=== PATIENT | male | born 1940 | race Caucasian/White ===

== ENCOUNTER → 2020-07-01 13:05 | Outpatient (BNVA) | payer MEDICARE, SELFPAY | PROVIDERS: PCP Internal Medicine; Visit Provider Student in an Organized Health Care Education/Training Program | DX: L40.50 Arthropathic psoriasis, unspecified (principal) | CPT/HCPCS: 96372; J0717 ==

== ENCOUNTER → 2020-08-04 12:54 | Outpatient (BNVA) | payer MEDICARE, SELFPAY | PROVIDERS: PCP Internal Medicine; Referring Provider Internal Medicine; Visit Provider Student in an Organized Health Care Education/Training Program | DX: L40.50 Arthropathic psoriasis, unspecified (principal) | CPT/HCPCS: 96372; J0717 ==

== ENCOUNTER 2021-05-31 13:54 | Outpatient (REF) | payer MEDICARE, SELFPAY ==
--- NOTE | ~2021-05-31 | US_ITS ---
EXAMINATION: US EXTRACRANIAL CAROTID DUPLEX, BILATERAL CLINICAL INFORMATION: Stenosis of right carotid artery COMPARISON: None TECHNIQUE: Real-time ultrasound and Doppler techniques (integrating B-mode 2-D vascular images, Doppler spectral analysis and color-flow Doppler imaging) were utilized to interrogate the extracranial carotid arteries, the vertebral arteries and proximal subclavian arteries bilaterally. The degree of stenosis is determined by criteria similar to NASCET. FINDINGS: Right Side: 1. There is no significant atherosclerotic plaque seen in the bifurcation/proximal ICA region. 2. The common carotid artery PSV proximally is 98.2 cm/s and distally 95.6 cm/s. 3. The proximal internal carotid artery velocities are 70.4 cm/s systolic and 17.0 cm/s diastolic. 4. The proximal external carotid artery PSV is 104 cm/s. 5. The vertebral artery shows antegrade flow. 6. The subclavian artery waveforms are normal. Left Side: 1. There is no significant atherosclerotic plaque seen in the bifurcation/proximal ICA region. 2. The common carotid artery PSV proximally is 162 cm/s and distally 116 cm/s. 3. The proximal internal carotid artery velocities are 72.1 cm/s systolic and 17.6 cm/s diastolic. 4. The proximal external carotid artery PSV is 138.0 cm/s. 5. The vertebral artery shows antegrade flow. 6. The subclavian artery waveforms are normal. US/US carotid duplex BI IMPRESSION: 1. RIGHT: Normal right internal carotid artery without atherosclerotic plaque or hemodynamically significant stenosis. 2. LEFT: Normal left internal carotid artery without atherosclerotic plaque or hemodynamically significant stenosis.
== END 2021-05-31 13:55 | disposition home or self-care (01) ==
LOC: HO.US 13:54
PROVIDERS: Visit Provider Internal Medicine
DX: I65.21 Occlusion and stenosis of right carotid artery (principal)
CPT/HCPCS: 93880

== ENCOUNTER 2022-10-10 10:41 | Inpatient (IN) | payer MEDICARE, SELFPAY ==
--- NOTE | ~2022-10-10 | MR_ITS ---
EXAMINATION: MRI FOOT WITHOUT AND WITH CONTRAST, LEFT CLINICAL INFORMATION: Diabetic foot ulcer, cellulitis COMPARISON: Radiographs 10/10/2022 TECHNIQUE: MRI without and with intravenous administration of 7 mL of Gadavist is performed on the left foot. FINDINGS: Apparent soft tissue defect at the dorsal aspect and/or distal tip of the great toe with underlying edema and enhancement compatible with cellulitis. No abscess. There is marrow edema/enhancement and T1 fatty marrow replacement throughout the distal phalanx, most prominently involving the tuft, compatible with osteomyelitis. Diffuse subcutaneous edema, prominent along the dorsum of the foot, and diffuse fatty atrophy of the intrinsic muscles of the foot. 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 No abscess.
--- NOTE | ~2022-10-10 | US_ITS ---
EXAMINATION: US RENAL AND BLADDER CLINICAL INFORMATION: Hydronephrosis. COMPARISON: Nothing recent. TECHNIQUE: Routine grayscale imaging of kidneys and the bladder was performed. FINDINGS: Right Kidney: It measures 9.6 x 5.6 x 6.3 cm. There is normal cortical thickness. No echogenic stones seen. There is moderate hydronephrosis. Left Kidney: It measures 11.3 x 6.6 x 6.1 cm. There is normal cortical thickness. No echogenic stones or solid masses. There is moderate left hydronephrosis. Bladder: Prevoid bladder measures 1002. Postvoid bladder volume measures 999 mL. There is trabeculated inner bladder wall but no bladder wall thickening. No echogenic stone. There is a small diverticulum suspected. US/US bladder IMPRESSION: Bilateral hydronephrosis and dilated urinary bladder most likely obstructive enlarged prostate gland. Prostate volume is 60 mL.
--- NOTE | ~2022-10-10 | XR_ITS ---
EXAMINATION: XR FOOT, LEFT CLINICAL INFORMATION: Pain and swelling COMPARISON: Left foot x-rays 12/09/2014 TECHNIQUE: AP, lateral, and oblique views of the left foot. FINDINGS: Bones of the midfoot are well aligned. No tarsal, metatarsal or phalangeal fracture. Mild diffuse degenerative changes of scattered IP joints. No focal soft tissue swelling of the foot. No radiopaque foreign body. Small plantar calcaneal enthesophytes. Vascular calcifications are noted. There are postsurgical changes of the ankle which are incompletely characterized. Symmetrically shaped approximately 1.2 x 0.6 cm soft tissue density abutting the first distal phalanx is nonspecific but may represent an object external to the patient as it is not visualized in other views. XR/XR foot LT 2V IMPRESSION: -Mild degenerative changes of the left foot without fracture. -Symmetrically shaped approximately 1.2 x 0.6 cm soft tissue density abutting the first distal phalanx is nonspecific but may represent an object external to the patient as it is not visualized in other views. Dedicated radiographs of the first toe can be obtained if clinically indicated.
--- NOTE | ~2022-10-10 | US_ITS ---
EXAMINATION: US RENAL AND BLADDER CLINICAL INFORMATION: Hydronephrosis. COMPARISON: Nothing recent. TECHNIQUE: Routine grayscale imaging of kidneys and the bladder was performed. FINDINGS: Right Kidney: It measures 9.6 x 5.6 x 6.3 cm. There is normal cortical thickness. No echogenic stones seen. There is moderate hydronephrosis. Left Kidney: It measures 11.3 x 6.6 x 6.1 cm. There is normal cortical thickness. No echogenic stones or solid masses. There is moderate left hydronephrosis. Bladder: Prevoid bladder measures 1002. Postvoid bladder volume measures 999 mL. There is trabeculated inner bladder wall but no bladder wall thickening. No echogenic stone. There is a small diverticulum suspected. US/US renal BI IMPRESSION: Bilateral hydronephrosis and dilated urinary bladder most likely obstructive enlarged prostate gland. Prostate volume is 60 mL.
--- NOTE | ~2022-10-10 | US_ITS ---
EXAMINATION: COLOR-FLOW DUPLEX IMAGING OF THE LEFT LOWER EXTREMITY ARTERIAL SYSTEM VELOCITY MEASUREMENTS THROUGHOUT THE FEMORAL ARTERIES. CLINICAL INFORMATION: The patient is a 81-year-old man with a left foot ulcer and weak pedal pulses. LEFT FEMORAL RUNOFF VELOCITIES: The left common femoral artery peak systolic velocity is 128 cm/s. The waveform is triphasic. The left profunda femoral artery peak systolic velocity is 74 cm/s. The waveform is biphasic. The proximal left superficial femoral artery peak systolic velocity is 74 cm/s. The waveform is triphasic. The mid left superficial femoral artery peak systolic velocity is 87 cm/s. The waveform is monophasic. The distal left superficial femoral artery peak systolic velocity is 86 cm/s. The waveform is triphasic. The left popliteal artery peak systolic velocity is 256 cm/s. The waveform is monophasic. The left posterior tibial artery velocity peak systolic velocity is 114 cm/s. The waveform is monophasic. The anterior tibial artery is not visualized. The left peroneal artery velocity peak systolic velocity is 57 cm/s. The waveform is monophasic. The dorsalis pedis artery is not visualized. A nonpathologically enlarged left inguinal lymph node is incidentally noted, measuring 1.7 x 0.7 cm. This shows no focal cortical thickening. US/US arterial duplex LE LT IMPRESSION: Findings consistent with hemodynamically significant left popliteal and infrapopliteal arterial disease.
--- NOTE | ~2022-10-10 | XR_ITS ---
EXAMINATION: XR CHEST CLINICAL INFORMATION: Peripheral line placement. COMPARISON: CXR from 12/25/2015 TECHNIQUE: Frontal view of the chest was obtained. FINDINGS: Lungs are slightly hypoinflated. There is equivocal finding of thickening of bronchial cordoba. Minimal linear opacity of atelectasis at the left lung base. No significant pulmonary findings. No airspace disease or pleural effusion. Pulmonary vascular pattern is normal. Cardiac silhouette is normal in size. The tip of the left arm peripherally inserted catheter is at the level of the distal superior vena cava. XR/XR chest 1V IMPRESSION: * The tip of the left arm peripherally inserted catheter is at the level of the distal superior vena cava. * Minimal atelectasis at the left lung base.
[2022-10-10 10:42] VITALS: BP 184/66; PULSE 70; RESP 17; TEMP 36.6; BMI 24.0
--- NOTE | 2022-10-10 11:02 | ED_ITS ---
HPI - General Adult General Chief complaint: General Medical Stated complaint: L leg redness Time Seen by Provider: 10/10/22 11:02 Source: patient Mode of arrival: wheelchair Limitations: no limitations History of Present Illness HPI narrative: Patient is a 81 year old assigned male at with a history of diabetes presenting to the emergency department today with left great toe infection and foot redness. Patient states that he noticed a couple of days ago his left great toe was becoming infected and his whole foot is red. Patient states that he has had a previous surgery on the left foot and has hardware in place in the left foot. Patient denies any dizziness, lightheadedness, abdominal pain, nausea, vom iting, fever, chills, blurry vision, double vision, loss of vision, chest pain, difficulty breathing, shortness of breath, back pain, night sweats, pain with urination, increased urinary frequency, increased urinary urgency, blood in his urine or stool, syncope or a near syncopal episode, recent trauma or falls, bowel incontinence, bladder incontinence, bowel retention, bladder retention, or any other complaints at this time. Onset (ago): day(s) Location: left and lower extremity Radiation: non-radiation Severity: moderate Severity scale (1-10): 4 Pain Consistency: constant Relieving factors: none Exacerbating factors: none Associated symptoms: denies other symptoms Treatments prior to arrival: none Related Data Home Medications Medication Instructions Recorded Confirmed metformin 500 mg tablet 500 mg PO BID 06/30/20 10/10/22 multivitamin 1 tab PO DAILY@1200 06/30/20 10/10/22 omega-3 fatty acids 1,000 mg 1,000 mg PO DAILY@1200 06/30/20 10/10/22 capsule omeprazole 20 mg tablet,delayed 20 mg PO DAILY@0630 06/30/20 10/10/22 release arginine HCl (L-arginine) 1,000 mg 1,000 mg PO DAILY 10/10/22 10/10/22 tablet atorvastatin 40 mg tablet 40 mg PO MOTH@1800 10/10/22 10/10/22 cyclosporine 0.05 % eye drops in a 1 drp ophthalmic (eye) Q12H 10/10/22 10/10/22 dropperette (Restasis) lisinopril 20 mg tablet 1 tab PO DAILY 10/10/22 10/10/22 sodium polystyrene sulfonate 15 60 ml PO SA@0900 10/10/22 10/10/22 gram-sorbitol 20 gram/60 mL oral susp (SPS (with sorbitol)) Allergies Allergy/AdvReac Type Severity Reaction Status Date / Time clindamycin [From CLEOCIN] Allergy Severe BLACK STOOL Unverified 06/17/20 14:33 Review of Systems Constitutional: Constitutional: Reports no additional constitutional complaints, Denies chills, Denies fever(s) and Denies night sweats Eyes: Eyes: Reports no additional eye complaints, Denies blurry vision, Denies change in vision, Denies diplopia, Denies eye discharge, Denies loss of vision and Denies eye pain ENT: Denies dizziness Cardiovascular: Cardiovascular: Reports no additional cardiovascular complaints, Denies chest pain, Denies lightheadedness, Denies Loss of Consciousness and Denies dyspnea Respiratory: Respiratory: Reports no additional respiratory complaints and Denies dyspnea Gastrointestinal: Gastrointestinal: Reports no additional gastrointestinal complaints, Denies abdominal pain, Denies melena, Denies hematochezia, Denies change in bowel habits and Denies change in stool character Genitourinary: Genitourinary: Reports no additional male genitourinary complaints, Denies hematuria, Denies oliguria, Denies difficulty urinating, Denies dysuria, Denies urinary frequency, Denies urinary hesitancy, Denies urinary incontinence and Denies urinary urgency Musculoskeletal: Musculoskeletal: Reports no additional musculoskeletal complaints, Denies numbness and Denies tingling Comments: left foot redness / swelling Neurologic: Denies dizziness, Denies loss of vision, Denies numbness and Denies tingling Psychiatric: Psychiatric: Reports no additional psychiatric complaints Endocrine: Endocrine: Reports no additional endocrine complaints Hematologic/Lymphatic: Hematologic/Lymphatic: Reports no additional hematologic/lymphatic complaints Allergic/Immunologic: Allergic/Immunologic: Reports no additional allergic/immunologic complaints PMFSH Past Medical History Attestation statement: The following information was validated with the patient. Source: old records reviewed and nursing notes reviewed Medical History Hypertension PAD (peripheral artery disease) PSA (psoriatic arthritis) Skin ulcer of left great toe Type 2 diabetes mellitus Social History Social History (Updated 10/10/22 @ 15:38 by BRIGID Mirza) Alcohol intake: former Patient Tobacco Use Status: Current someday Tobacco user Tobacco use type: Cigar Use of substances other than those prescribed or required for medical reasons: No Advance Directives: Yes Advance Directives Information Provided: No Advance Directives on File: No Physical Exam ED Vital Signs: Vital Signs - 24 hr 10/10/22 10:42 10/10/22 12:55 10/10/22 14:17 Temperature 98 F Pulse Rate 70 67 73 Respiratory Rate 17 20 18 Blood Pressure 184/66 H 160/63 H 151/70 H Pulse Oximetry 99 98 Oxygen Delivery Method Room Air Room Air Room Air BMI result Body Mass Index 24.0 Const General: cooperative, no acute distress, alert and awake Nutritional Appearance: well nourished Orientation/consciousness: patient oriented x3 Limitations: no limitations HENMT Head: Yes normal to inspection and Yes atraumatic Ears: hearing grossly normal bilaterally and external ears normal General nose exam: Normal external nose present, no nasal discharge noted and no epistaxis Face and sinus: Yes normal facial exam, No abrasion and No laceration Mouth: Normal oral and palatal mucosa present, no drooling and no muffled voice Eyes General: appearance normal, both eyes and all related structures Periorbital: periorbital findings normal Eyelids: Yes eyelids normal Conjunctivae: conjunctivae normal Pupils: Equal, round and reactive pupils present EOM: EOMs intact bilaterally Neck Neck: Yes normal visual inspection, Yes full ROM and Yes no lymphadenopathy Chest Chest palpation & inspection: normal inspection of the chest Resp Effort & Inspection: normal respiratory effort and able to speak in complete sentences Auscultation: clear to auscultation bilaterally Cardio Rate: regular rate Rhythm: regular rhythm GI Inspection: Yes normal to inspection Palpation (GI): Soft to palpation, not firm, nontender, no guarding and not rigid Skin Other: Neuro General: patient oriented x3 and moves all extremities Cranial nerves: Yes Equal, round and reactive pupils present Cognition (Neuro): normal cognition Motor exam (neuro): 5/5 motor strength present throughout Sensory Exam: Normal double simultaneous stimulation for sensation Coordination: [id number] test normal Extrem General: Yes normal to inspection, Yes full ROM and Yes capillary refill normal Psych Appearance: grossly normal Mental Status: mental status grossly normal Affect: normal affect Attitude: cooperative Thought process: Normal thought process present Thought content: Normal thought content present Insight: Good insight present (Psych) Medications Administered Generic Name Dose Route Start Last Admin Trade Name Freq PRN Reason Stop Dose Admin Enoxaparin Sodium 40 mg 10/10/22 16:00 10/10/22 15:24 Enoxaparin Sodium 40 Mg/0.4 Ml Syringe SUBCUT 40 mg Q24H [facility] Administration Cefepime HCl 2 gm/ Sodium 50 mls @ 100 mls/hr 10/10/22 15:00 10/10/22 15:48 Chloride IV Infused Q8H MICHAEL Infusion Insulin Human Lispro 0 unit 10/10/22 16:30 10/10/22 15:25 Insulin Lispro 100 Unit/Ml 3 Ml Vial SUBCUT Not Given QIDACHS [facility] Protocol Sodium Chloride 3 ml 10/10/22 16:00 10/10/22 15:25 0.9 % Sodium Chloride Flush 3 Ml Syringe IVFLUSH Not Given QSHIFT [facility] Discontinued Medications Generic Name Dose Route Start Last Admin Trade Name Andersq PRN Reason Stop Dose Admin Piperacillin Sod/Tazobactam 50 mls @ 100 mls/hr 10/10/22 11:17 10/10/22 11:47 Sod 3.375 gm/ Sodium Chloride IV 10/10/22 11:46 Infused ONCE ONE Infusion Vancomycin HCl 1,500 mg/ 500 mls @ 333.333 mls/hr 10/10/22 12:00 10/10/22 13:33 Sodium Chloride IV 10/10/22 13:29 Infused ONCE ONE Infusion Medical Decision Making Medical Decision Making [facility] Narrative: Patient is a 81 year old assigned male at with a history of diabetes and left ankle surgery presenting to the emergency department today with left great toe and left foot infection. Patient's physical exam showed significant cellulitis of the left foot originating at the left great toe as pictured in the physical exam portion of this chart. Patient's blood work showed an ESR of 54 and a CRP of 5.88. Patient's left foot x-ray showed no acute process. I spoke to the hospitalist team who agreed to admission. Patient was given IV Vanco and Zosyn. At 1402 the patient is not septic nor is his clinical picture consistent with sepsis. I explained my physical exam findings as well as all test results to the patient. I answered all questions asked by the patient. Patient verbalized agreement and understanding with this treatment plan and admission. Differential Diagnosis Differential Diagnoses: The differential diagnosis associated with the presentation includes left foot cellulitis, left great toe wound Consult Healthcare Provider Management of the patient was discussed with: Hospitalist (agreed to admission) Lab Data MDM Lab Attestation statement: I reviewed the patient's lab results. 10/10/22 11:25 10/10/22 11:25 Labs: Lab Results 10/10/22 10/10/22 10/10/22 Range/Units 11:25 11:25 11:25 WBC 9.0 (4.8-10.8) X10*3/uL RBC 3.94 L (4.60-5.80) X10*6/uL Hgb 12.9 L (14.0-18.0) g/dl Hct 38.5 L (42.0-52.0) % MCV 97.7 (80.0-98.0) fL MCH 32.7 (27.0-33.0) pg MCHC 33.5 (31.0-36.0) g/dl RDW 12.5 (11.0-16.0) % Plt Count 252 (160-400) X10*3/uL MPV 11.1 (9.4-12.4) fL Immature Gran % (Auto) 0.4 (0.0-0.4) % Neut % (Auto) 57.1 (45-73) % Lymph % (Auto) 29.9 (20-40) % [place] % (Auto) 10.4 (2-11) % Eos % (Auto) 2.1 (0-4) % Baso % (Auto) 0.1 (0-2) % Lymph # (Auto) 2.7 (1.2-4.9) X10*3/uL [place] # (Auto) 0.9 (0.1-1.2) X10*3/uL Eos # (Auto) 0.2 (0.0-0.4) X10*3/uL Baso # (Auto) 0.0 (0.0-0.2) X10*3/uL Abs Immat Gran (auto) 0.04 H (0.00-0.03) X10*3/uL Absolute Neuts (auto) 5.1 (2.0-8.3) x10*3/uL Absolute Nucleated RBC 0.000 (0.0-0.012) X10*3/uL Nucleated RBC % (auto) 0.0 (0.0-0.2) /100WBC ESR 54 H (0-15) MM/HR Sodium 141 (135-145) mmol/L Potassium 4.6 (3.3-5.1) mmol/L Chloride 109 H (96-108) mmol/L Carbon Dioxide 24 (22-29) mmol/L Anion Gap 13 (12-20) BUN 26 H (9-16) mg/dL Creatinine 1.22 (0.5-1.4) mg/dL Estim Creat Clear Calc 47.5 Estimated GFR 57 Random Glucose 94 (60-115) mg/dL Lactic Acid (0.5-2.0) mmol/L Calcium 9.5 (8.4-10.2) mg/dL Magnesium 1.8 (1.6-2.6) mg/dL Total Bilirubin 0.7 (0.0-1.0) mg/dL AST 15 (5-37) U/L ALT 12 (0-40) U/L Alkaline Phosphatase 109 (39-117) U/L C-Reactive Protein 5.88 H (< or = 0.50) mg/dL Total Protein 7.0 (6.5-8.0) g/dL Albumin 4.2 (3.5-5.0) g/dL COVID-19 ([facility]) (Negative) COVID-19 Clin Com 10/10/22 10/10/22 Range/Units 11:25 13:03 WBC (4.8-10.8) X10*3/uL RBC (4.60-5.80) X10*6/uL Hgb (14.0-18.0) g/dl Hct (42.0-52.0) % MCV (80.0-98.0) fL MCH (27.0-33.0) pg MCHC (31.0-36.0) g/dl RDW (11.0-16.0) % Plt Count (160-400) X10*3/uL MPV (9.4-12.4) fL Immature Gran % (Auto) (0.0-0.4) % Neut % (Auto) (45-73) % Lymph % (Auto) (20-40) % [place] % (Auto) (2-11) % Eos % (Auto) (0-4) % Baso % (Auto) (0-2) % Lymph # (Auto) (1.2-4.9) X10*3/uL [place] # (Auto) (0.1-1.2) X10*3/uL Eos # (Auto) (0.0-0.4) X10*3/uL Baso # (Auto) (0.0-0.2) X10*3/uL Abs Immat Gran (auto) (0.00-0.03) X10*3/uL Absolute Neuts (auto) (2.0-8.3) x10*3/uL Absolute Nucleated RBC (0.0-0.012) X10*3/uL Nucleated RBC % (auto) (0.0-0.2) /100WBC ESR (0-15) MM/HR Sodium (135-145) mmol/L Potassium (3.3-5.1) mmol/L Chloride (96-108) mmol/L Carbon Dioxide (22-29) mmol/L Anion Gap (12-20) BUN (9-16) mg/dL Creatinine (0.5-1.4) mg/dL Estim Creat Clear Calc Estimated GFR Random Glucose (60-115) mg/dL Lactic Acid 1.0 (0.5-2.0) mmol/L Calcium (8.4-10.2) mg/dL Magnesium (1.6-2.6) mg/dL Total Bilirubin (0.0-1.0) mg/dL AST (5-37) U/L ALT (0-40) U/L Alkaline Phosphatase (39-117) U/L C-Reactive Protein (< or = 0.50) mg/dL Total Protein (6.5-8.0) g/dL Albumin (3.5-5.0) g/dL COVID-19 ([facility]) Negative (Negative) COVID-19 Clin Com See Note Radiology Impression Discussion of test interpretation with radiology: I have reviewed the radiologist's reading. Radiologist Impression: My interpretation is in agreement with the radiologist's impression of this imaging study. EXAMINATION: XR FOOT, LEFT CLINICAL INFORMATION: Pain and swelling? COMPARISON: Left foot x-rays 12/09/2014? TECHNIQUE: AP, lateral, and oblique views of the left foot. FINDINGS: Bones of the midfoot are well aligned. No tarsal, metatarsal or phalangeal fracture. Mild diffuse degenerative changes of scattered IP joints. No focal soft tissue swelling of the foot. No radiopaque foreign body. Small plantar calcaneal enthesophytes. Vascular calcifications are noted. There are postsurgical changes of the ankle which are incompletely characterized. Symmetrically shaped approximately 1.2 x 0.6 cm soft tissue density abutting the first distal phalanx is nonspecific but may represent an object external to the patient as it is not visualized in other views. XR/XR foot LT 2V IMPRESSION: -Mild degenerative changes of the left foot without fracture. -Symmetrically shaped approximately 1.2 x 0.6 cm soft tissue density abutting the first distal phalanx is nonspecific but may represent an object external to the patient as it is not visualized in other views. Dedicated radiographs of the first toe can be obtained if clinically indicated. Dictated By: Arun Webb MD Signed By: Electronically signed by Arun Webb MD 10/10/22 1667 Critical Care Time Critical Care Time Critical Care Time: Yes Total Critical Care Time: 30 Attestation: I spent 30 minutes of Critical Care Time with this patient. This does not include time spent on separately reported billable procedures. Discharge Plan Discharge Clinical Impression: Cellulitis, Diabetes Patient Disposition: Admitted As Inpatient
--- NOTE | 2022-10-10 11:10 | PC.NURSE ---
81 y/o M with hx of DM2 pw worsened redness and swelling from toe to calf. pt is aox3, calm and cooperative, VSS. pt in gown, on monitor, awaiting further recs
[2022-10-10] MEDS: Piperacillin Sodium/Tazobactam 3.375 GM in 0.9 % Sodium Chloride 50 ML IV (11:36)
[2022-10-10 11:44] LABS: MANUAL DIFF FLAG NO
[2022-10-10] MEDS: vancomycin HCL 1,500 MG in 0.9 % Sodium Chloride 500 ML 333.33 MG IV (11:47)
[2022-10-10 11:51] LABS: Basophils Percent Auto 0.1 % (0-2); Eosinophils Absolute Auto 0.2 X10*3/uL (0.0-0.4); Eosinophils Percent Auto 2.1 % (0-4); Hematocrit 38.5 % (42.0-52.0); Hemoglobin 12.9 g/dl (14.0-18.0); Imm Gran Abs Auto 0.04 X10*3/uL (0.00-0.03); Imm Gran Pct Auto 0.4 % (0.0-0.4); Lymphocytes Absolute Auto 2.7 X10*3/uL (1.2-4.9); Lymphocytes Percent Auto 29.9 % (20-40); Mean Corpuscular HGB Conc 33.5 g/dl (31.0-36.0); Mean Corpuscular Hemoglobin 32.7 pg (27.0-33.0); Mean Corpuscular Volume 97.7 fL (80.0-98.0); Mean Platelet Volume 11.1 fL (9.4-12.4); Monocytes Absolute Auto 0.9 X10*3/uL (0.1-1.2); Monocytes Percent Auto 10.4 % (2-11); Neutrophils Absolute Auto 5.1 x10*3/uL (2.0-8.3); Neutrophils Percent Auto 57.1 % (45-73); Platelet Count 252 X10*3/uL (160-400); Red Blood Count 3.94 X10*6/uL (4.60-5.80); Red Cell Distribution Width 12.5 % (11.0-16.0)
[2022-10-10 12:07] LABS: Alanine Aminotransferase 12 U/L (0-40); Albumin Level 4.2 g/dL (3.5-5.0); Alkaline Phosphatase 109 U/L (39-117); Anion Gap 13 (12-20); Aspartate Amino Transferase 15 U/L (5-37); Bilirubin Total 0.7 mg/dL (0.0-1.0); Blood Urea Nitrogen 26 mg/dL (9-16); C Reactive Protein 5.88 mg/dL (< or = 0.50); Calcium 9.5 mg/dL (8.4-10.2); Carbon Dioxide 24 mmol/L (22-29); Chloride 109 mmol/L (96-108); Creatinine Clr Calc Pharmacy 47.5; Estimated Glomerular Filt Rate 57; Glucose Random 94 mg/dL (60-115); Magnesium 1.8 mg/dL (1.6-2.6); Potassium 4.6 mmol/L (3.3-5.1); Sodium 141 mmol/L (135-145)
[2022-10-10 12:31] LABS: Erythrocyte Sedimentation Rate 54 MM/HR (0-15)
[2022-10-10 12:55] VITALS: BP 160/63; PULSE 67; RESP 20; O2SAT 99
--- NOTE | 2022-10-10 13:07 | PHA.MEDREC ---
Pharmacy Consult ? Medication Reconciliation Pharmacy has completed the medication reconciliation.
[2022-10-10 13:25] LABS: COVID-19 Test Negative (Negative); IDNOW Serial# 16C4AD1C
[2022-10-10 14:17] VITALS: BP 151/70; PULSE 73; RESP 18; O2SAT 98
[2022-10-10] MEDS: cefEPime HCl 2 GM in 0.9 % Sodium Chloride 50 ML IV ×2 (15:24→22:10)
[2022-10-10] MEDS: Enoxaparin Sodium 40 MG/0.4 ML SYRINGE SUBCUT (15:24)
--- NOTE | 2022-10-10 15:25 | PM.IMHP ---
History of Present Illness Date of Service: 10/10/22 Attending physician on admission: Saúl Schwartz Chief Complaint: infection L great toe 81-year-old male with history of controlled type 2 diabetes last A1c 6.8% with diabetic neuropathy, peripheral artery disease, occassional cigar smoker, former cigarette smoker, hyperlipidemia, and hypertension presented to the ED earlier today for evaluation of a wound on the tip of the left great toe with redness, swelling which he noticed today. He states he has been having pain in the left great toe for about 3-4 days. He states he does not check his feet regularly and where black compression stockings for 2 days at a minimum without changing them. Denies any purulent drainage or fevers. He denies any history of diabetic foot infection.On arrival, vital stable. Renal function baseline, electrolytes normal. Lactic acid 1.0. ESR 54, CRP 5.88. X-ray of the foot negative for any acute abnormality or osteomyelitis. Patient given empiric Zosyn and vancomycin in the ED. Patient to be admitted for further management of acute cellulitis and left foot ulcer. Review of Systems Review of Systems: General: No fevers, malaise, unintentional weight loss Cardiovascular: No chest pain, palpitations, or leg edema Respiratory: No shortness of breath, wheezing, cough GI: No abdominal pain, nausea, vomiting, diarrhea, constipation, melena, hematochezia : No dysuria, hematuria, increased urinary frequency, decreased urinary output MSK: No myalgia, back pain. +L foot pain Neuro: No headaches, weakness, paresthesias Skin: No rashes. +wound left great toe PMFSH Medical History Hypertension PAD (peripheral artery disease) PSA (psoriatic arthritis) Skin ulcer of left great toe Type 2 diabetes mellitus Social History (Updated 10/10/22 @ 15:38 by BRIGID Mirza) Alcohol intake: former Patient Tobacco Use Status: Current someday Tobacco user Tobacco use type: Cigar Use of substances other than those prescribed or required for medical reasons: No Advance Directives: Yes Advance Directives Information Provided: No Advance Directives on File: No Meds Allergies Allergy/AdvReac Type Severity Reaction Status Date / Time clindamycin [From CLEOCIN] Allergy Severe BLACK STOOL Unverified 06/17/20 14:33 Active Medications: Current Medications Acetaminophen (Acetaminophen 325 Mg Tablet) 650 mg PO Q6H PRN PRN Reason: Pain, Mild (Pain Scale 1-3) Atorvastatin Calcium (Atorvastatin Calcium 40 Mg Tablet) 40 mg PO MOTH@1800 [facility] Dextrose (Dextrose 50 % 25 Gm/50 Ml Syringe) 25 gm IVPUSH Q15M PRN; Protocol PRN Reason: per Hypoglycemia Standing Ord. Enoxaparin Sodium (Enoxaparin Sodium 40 Mg/0.4 Ml Syringe) 40 mg SUBCUT Q24H [facility] Last Admin: 10/10/22 15:24 Dose: 40 mg Glucose (Glucose Gel 15 Gm Gel..Gram.) 15 gm PO Q15M PRN; Protocol PRN Reason: per Hypoglycemia Standing Ord. Cefepime HCl 2 gm/ Sodium (Chloride) 50 mls @ 100 mls/hr IV Q8H [facility] Last Admin: 10/10/22 15:24 Dose: 100 mls/hr Vancomycin HCl 1,500 mg/ (Sodium Chloride) 500 mls @ 333.333 mls/hr IV ONCE ONE Stop: 10/10/22 16:48 Vancomycin HCl 1,000 mg/ (Sodium Chloride) 270 mls @ 270 mls/hr IV Q24H [facility] Insulin Human Lispro (Insulin Lispro 100 Unit/Ml 3 Ml Vial) 0 unit SUBCUT QIDACHS [facility]; Protocol Last Admin: 10/10/22 15:25 Dose: Not Given Lisinopril (Lisinopril 20 Mg Tablet) 20 mg PO DAILY [facility]; Protocol Multivitamins/Vitamin C (Multivitamin Tablet) 1 tab PO DAILY@1200 [facility] Non-Formulary Medication (Cyclosporine [Restasis]) 1 drop EYE-BOTH Q12H [facility] Omeprazole (Omeprazole 20 Mg Capsule.Dr) 20 mg PO DAILY@0630 [facility] Ondansetron HCl (Ondansetron Hcl 4 Mg/2 Ml Vial) 4 mg IVPUSH Q8H PRN PRN Reason: Nausea and Vomiting Pharmacy Consult (Consult Rx Perform Med Rec) 1 each MISCELLANE ONCE PRN PRN Reason: Consult order Pharmacy Consult (Consult Rx Vancomycin Dosing) 1 each MISCELLANE DAILY PRN PRN Reason: Consult order Sodium Chloride (0.9 % Sodium Chloride Flush 3 Ml Syringe) 3 ml IVFLUSH QSHIFT [facility] Last Admin: 10/10/22 15:25 Dose: Not Given Sodium Polystyrene Sulfonate (Sodium Polystyrene Sulfon/Sorb 15 Gm/60 Ml Oral.Susp) 15 gm PO SA@0900 [facility] Home Medications Medication Instructions Recorded Confirmed Last Taken Type metformin 500 mg tablet 500 mg PO BID 06/30/20 10/10/22 10/10/22 09:00 History multivitamin 1 tab PO DAILY@1200 06/30/20 10/10/22 10/09/22 History omega-3 fatty acids 1,000 mg 1,000 mg PO DAILY@1200 06/30/20 10/10/22 10/09/22 History capsule omeprazole 20 mg tablet,delayed 20 mg PO DAILY@0630 06/30/20 10/10/22 10/10/22 09:00 History release arginine HCl (L-arginine) 1,000 mg 1,000 mg PO DAILY 10/10/22 10/10/22 10/09/22 History tablet atorvastatin 40 mg tablet 40 mg PO MOTH@1800 10/10/22 10/10/22 10/09/22 History cyclosporine 0.05 % eye drops in a 1 drp ophthalmic (eye) Q12H 10/10/22 10/10/22 10/09/22 History dropperette (Restasis) lisinopril 20 mg tablet 1 tab PO DAILY 10/10/22 10/10/22 10/10/22 09:00 History sodium polystyrene sulfonate 15 60 ml PO SA@0900 10/10/22 10/10/22 10/07/22 History gram-sorbitol 20 gram/60 mL oral susp (SPS (with sorbitol)) Physical Exam Vital Signs and Narrative: Vital Signs: Last Vital Signs Temp 98 F 10/10/22 10:42 Pulse 73 10/10/22 14:17 Resp 18 10/10/22 14:17 BP 151/70 H 10/10/22 14:17 Pulse Ox 98 10/10/22 14:17 O2 Del Method 10/10/22 14:17 BMI result Body Mass Index 24.0 Constitutional - Awake and Alert, No apparent distress Eyes - PERRLA, EOMI Cardiovascular - S1S2, RRR, No edema Respiratory - Normal lung expansion, Normal respiratory effort, No respiratory distress, CTA bilaterally Gastrointestinal - NT / ND; +BS; No rebound or guarding Extremities - no calf tenderness bilaterally, no calf swelling. Mild swelling left foot with dusky erythema, but warmth noted. 1.5cm shallow ulceration distal tip left great toe. See photos Skin - Warm/Dry Neurological - Alert & oriented x3, CN II-XII in tact, 5/5 strength BUE and BLE Psychological - Appropriate affect Results Labs 10/10/22 11:25 10/10/22 11:25 Labs: Laboratory Results - last 24 hr 10/10/22 10/10/22 10/10/22 11:25 11:25 11:25 MCV 97.7 MCH 32.7 MCHC 33.5 RDW 12.5 Plt Count 252 MPV 11.1 Immature Gran % (Auto) 0.4 Neut % (Auto) 57.1 Lymph % (Auto) 29.9 [place] % (Auto) 10.4 Eos % (Auto) 2.1 Baso % (Auto) 0.1 Lymph # (Auto) 2.7 [place] # (Auto) 0.9 Eos # (Auto) 0.2 Baso # (Auto) 0.0 Abs Immat Gran (auto) 0.04 H Absolute Neuts (auto) 5.1 Absolute Nucleated RBC 0.000 Nucleated RBC % (auto) 0.0 ESR 54 H Anion Gap 13 Estim Creat Clear Calc 47.5 Estimated GFR 57 Random Glucose 94 Lactic Acid Calcium 9.5 Magnesium 1.8 Total Bilirubin 0.7 AST 15 ALT 12 Alkaline Phosphatase 109 C-Reactive Protein 5.88 H Total Protein 7.0 Albumin 4.2 COVID-19 ([facility]) COVID-19 Clin Com 10/10/22 10/10/22 11:25 13:03 MCV MCH MCHC RDW Plt Count MPV Immature Gran % (Auto) Neut % (Auto) Lymph % (Auto) [place] % (Auto) Eos % (Auto) Baso % (Auto) Lymph # (Auto) [place] # (Auto) Eos # (Auto) Baso # (Auto) Abs Immat Gran (auto) Absolute Neuts (auto) Absolute Nucleated RBC Nucleated RBC % (auto) ESR Anion Gap Estim Creat Clear Calc Estimated GFR Random Glucose Lactic Acid 1.0 Calcium Magnesium Total Bilirubin AST ALT Alkaline Phosphatase C-Reactive Protein Total Protein Albumin COVID-19 ([facility]) Negative COVID-19 Clin Com See Note Assessment and Plan (1) Cellulitis: Status: Acute (2) Skin ulcer of left great toe: Status: Acute Plan 81-year-old male with history of controlled type 2 diabetes last A1c 6.8% with diabetic neuropathy, peripheral artery disease, occassional cigar smoker, former cigarette smoker, hyperlipidemia, and hypertension admitted for management of cellulitis and left foot ulcer. #Acute cellulitis left foot with left great toe stage 2 ulceration related to PAD, type 2 diabetes -IV vanco and cefepime -No leukocytosis -Xray negative -ESR 54, CRP 5.88. MR foot ordered to r/o osteo -Arterial duplex LLE ordered -Admit to med surg for IV abx #Controlled type 2 diabetes- last A1c 6.8% -POC glucose -Diabetic diet -Humalog on SS, hold metformin #HTN -continue home meds #PAD -continue statin, not on antiplatelet therapy -Arterial duplex as above #diabetic neuropathy -counseled on daily foot checks DVT prophylaxis-Lovenox Full code Patient requires inpatient stay for further management of acute cellulitis left foot with left great toe ulceration requiring IV antibiotics and further imaging to evaluate for osteomyelitis Time Spent With Patient Time: Total time managing care of this patient today ____ minutes. Quality Stroke Does the patient have a stroke diagnosis?: No VTE Prior VTE?: No VTE Risk Level:: Medical - moderate - high VTE Device Contraindication: Treatment Not Indicated VTE Drug Contraindication: N/A - Med Ordered
[2022-10-10 16:50] VITALS: BP 176/74; PULSE 70; RESP 16; TEMP 36.7; O2SAT 98
--- NOTE | 2022-10-10 16:52 | MHC.EDTECH ---
THIS PCT ASSUMED CARE OF PT AT 1600 ,PT VITALS SIGN TAKEN AND BLOOD SUGAR CHECK ,PT IS RESTING IN BED .
[2022-10-10 16:59] LABS: Glucose, Whole Blood 88 mg/dL (60-115)
--- NOTE | 2022-10-10 17:49 | PC.NURSE ---
Ultrasound in at bedside
[2022-10-10 20:00] VITALS: BP 145/71; PULSE 71; RESP 18; TEMP 36.4; O2SAT 98
[2022-10-10 21:04] LABS: Glucose, Whole Blood 177 mg/dL (60-115)
[2022-10-10] MEDS: Insulin Lispro 100 UNIT/ML 3 ML VIAL SUBCUT (21:09)
[2022-10-11 03:06] VITALS: BP 148/67; PULSE 75; RESP 18; TEMP 37.2; O2SAT 98
[2022-10-11] MEDS: Omeprazole 20 MG CAPSULE.DR PO (05:57)
[2022-10-11] MEDS: cefEPime HCl 2 GM in 0.9 % Sodium Chloride 50 ML IV ×4 (06:02→22:19)
[2022-10-11] MEDS: Acetaminophen 325 MG TABLET 650 MG PO (06:06)
[2022-10-11 07:04] LABS: MANUAL DIFF FLAG NO
[2022-10-11 07:08] LABS: Basophils Percent Auto 0.2 % (0-2); Eosinophils Absolute Auto 0.2 X10*3/uL (0.0-0.4); Eosinophils Percent Auto 2.1 % (0-4); Hematocrit 34.1 % (42.0-52.0); Hemoglobin 11.6 g/dl (14.0-18.0); Imm Gran Abs Auto 0.04 X10*3/uL (0.00-0.03); Imm Gran Pct Auto 0.5 % (0.0-0.4); Lymphocytes Percent Auto 23.9 % (20-40); Mean Corpuscular Hemoglobin 33.4 pg (27.0-33.0); Mean Corpuscular Volume 98.3 fL (80.0-98.0); Mean Platelet Volume 11.5 fL (9.4-12.4); Monocytes Absolute Auto 1.2 X10*3/uL (0.1-1.2); Monocytes Percent Auto 13.8 % (2-11); Neutrophils Percent Auto 59.5 % (45-73); Platelet Count 241 X10*3/uL (160-400); Red Blood Count 3.47 X10*6/uL (4.60-5.80); Red Cell Distribution Width 12.6 % (11.0-16.0); White Blood Count 8.4 X10*3/uL (4.8-10.8)
[2022-10-11] MEDS: 0.9 % Sodium Chloride Flush 3 ML SYRINGE IVFLUSH ×2 (07:26→16:45)
[2022-10-11 07:33] VITALS: BP 144/66; PULSE 72; RESP 19; TEMP 35.8; O2SAT 96
[2022-10-11 07:43] LABS: Anion Gap 12 (12-20); Blood Urea Nitrogen 26 mg/dL (9-16); Calcium 8.6 mg/dL (8.4-10.2); Carbon Dioxide 21 mmol/L (22-29); Chloride 110 mmol/L (96-108); Creatinine Clr Calc Pharmacy 47.8; Estimated Glomerular Filt Rate 58; Glucose Random 76 mg/dL (60-115); Potassium 4.2 mmol/L (3.3-5.1); Sodium 139 mmol/L (135-145)
[2022-10-11 07:44] LABS: Glucose, Whole Blood 72 mg/dL (60-115)
--- NOTE | 2022-10-11 07:49 | HE.PHANOTE ---
Vancomycin Dosing Addendum Patients Scr went from 1.22 to 1.21 overnight. Patient has only received a 2 gram load as of now. Will continue with 1000 mg Q24H and level will be drawn tomorrow 10/12 @0900. Predicted AUC 441 mg/L/hr
[2022-10-11] MEDS: lisinopriL 20 MG TABLET PO (07:50)
--- NOTE | 2022-10-11 10:49 | P.CONGS_ITS ---
History of Present Illness Consult details Consult date: 10/11/22 Requesting physician: Manjula Lora Narrative: Coverage for Dr. Gallegos: 81-year-old male patient with history of diabetes, diabetic neuropathy, peripheral artery disease with a prior history of foot pain with ambulation now presenting with a open wound at the tip of the left great toe with surrounding redness and swelling. He denies any recent injury valve in the great toe and noted the wound approximately 3-4 days prior to admission. There have been no previous foot wounds noted by the patient. He was evaluated in the emergency department and found to have a normal WBC. Doppler arterial s tudies revealed a dynamic least significant left popliteal and infrapopliteal arterial disease. MRI of the foot is pending at this time. The patient does report pain when the toe is touched as well as swelling in the foot and lower leg. Review of Systems Review of Systems: Yes all other systems are reviewed and are negative Constitutional: Constitutional: Denies chills, Denies fever(s), Denies headache(s), Denies poor appetite and Denies weakness ENT: Denies headache(s) Cardiovascular: Cardiovascular: Denies chest pain, Denies irregular heart rhythm, Denies palpitations and Denies dyspnea Respiratory: Respiratory: Denies cough, Denies excessive phlegm production and Denies dyspnea Gastrointestinal: Gastrointestinal: Denies abdominal pain, Denies bloating, Denies change in bowel habits, Denies constipation, Denies heartburn, Denies diarrhea, Denies nausea and Denies vomiting Genitourinary: Genitourinary: Denies difficulty urinating and Denies urinary frequency Musculoskeletal: Musculoskeletal: Reports as per HPI, Denies back pain, Denies muscle weakness, Reports numbness and Reports radiating pain into limb Integumentary/Breasts: Skin/Breast: Denies changing lesions and Denies unusual bruising Neurologic: Denies headache(s), Reports numbness, Denies paresthesias and Denies weakness Psychiatric: Psychiatric: Denies anxiety and Denies depression Endocrine: Endocrine: Denies palpitations Hematologic/Lymphatic: Hematologic/Lymphatic: Denies lymphadenopathy [facility] Past Medical History Medical History Hypertension PAD (peripheral artery disease) PSA (psoriatic arthritis) Skin ulcer of left great toe Type 2 diabetes mellitus Social History Social History Household Members: Children Housing: House Alcohol intake: former Patient Tobacco Use Status: Never used Tobacco Tobacco use type: Cigarette Smoked in Last 30 Days: No Second Hand Smoke Exposure: No Use of substances other than those prescribed or required for medical reasons: No Currently Displaying Signs/Symptoms of Drug Intoxication Withdrawal: No Any prior treatment program specific to substance use: No Have you been hit, kicked, punched, or otherwise hurt by someone within the past year? If so, by whom?: No Do you feel safe in your current relationship?: No Is there a partner from a previous relationship who is making you feel unsafe now?: No Are you made to feel afraid or neglected: No Advance Directives: Yes Advance Directives Information Provided: No Advance Directives on File: No Advance Directives Date on File: 10/10/22 Do you have thoughts of harming others: None Recently lost weight without trying: No Nutrition Risks: No Nutritional Risk Meds Allergies Allergy/AdvReac Type Severity Reaction Status Date / Time clindamycin [From CLEOCIN] Allergy Severe BLACK STOOL Unverified 06/17/20 14:33 Active Medications: Current Medications Acetaminophen (Acetaminophen 325 Mg Tablet) 650 mg PO Q6H PRN PRN Reason: Pain, Mild (Pain Scale 1-3) Last Admin: 10/11/22 06:06 Dose: 650 mg Atorvastatin Calcium (Atorvastatin Calcium 40 Mg Tablet) 40 mg PO MOTH@1800 MIC[facility]EL Dextrose (Dextrose 50 % 25 Gm/50 Ml Syringe) 25 gm IVPUSH Q15M PRN; Protocol PRN Reason: per Hypoglycemia Standing Ord. Enoxaparin Sodium (Enoxaparin Sodium 40 Mg/0.4 Ml Syringe) 40 mg SUBCUT Q24H [facility] Last Admin: 10/10/22 15:24 Dose: 40 mg Glucose (Glucose Gel 15 Gm Gel..Gram.) 15 gm PO Q15M PRN; Protocol PRN Reason: per Hypoglycemia Standing Ord. Cefepime HCl 2 gm/ Sodium (Chloride) 50 mls @ 100 mls/hr IV Q8H [facility] Last Infusion: 10/11/22 06:38 Dose: Infused Vancomycin HCl 1,000 mg/ (Sodium Chloride) 270 mls @ 270 mls/hr IV Q24H MICHAEL Insulin Human Lispro (Insulin Lispro 100 Unit/Ml 3 Ml Vial) 0 unit SUBCUT QIDACHS [facility]; Protocol Last Admin: 10/11/22 07:40 Dose: Not Given Lisinopril (Lisinopril 20 Mg Tablet) 20 mg PO DAILY [facility]; Protocol Last Admin: 10/11/22 07:50 Dose: 20 mg Multivitamins/Vitamin C (Multivitamin Tablet) 1 tab PO DAILY@1200 [facility] Non-Formulary Medication (Cyclosporine [Restasis]) 1 drop EYE-BOTH Q12H [facility] Omeprazole (Omeprazole 20 Mg Capsule.Dr) 20 mg PO DAILY@0630 [facility] Last Admin: 10/11/22 05:57 Dose: 20 mg Ondansetron HCl (Ondansetron Hcl 4 Mg/2 Ml Vial) 4 mg IVPUSH Q8H PRN PRN Reason: Nausea and Vomiting Pharmacy Consult (Consult Rx Perform Med Rec) 1 each MISCELLANE ONCE PRN PRN Reason: Consult order Pharmacy Consult (Consult Rx Vancomycin Dosing) 1 each MISCELLANE DAILY PRN PRN Reason: Consult order Sodium Chloride (0.9 % Sodium Chloride Flush 3 Ml Syringe) 3 ml IVFLUSH QSHIFT [facility] Last Admin: 10/11/22 07:26 Dose: 3 ml Sodium Polystyrene Sulfonate (Sodium Polystyrene Sulfon/Sorb 15 Gm/60 Ml Oral.Susp) 15 gm PO SA@0900 [facility] Home Medications Medication Instructions Recorded Confirmed Last Taken Type metformin 500 mg tablet 500 mg PO BID 06/30/20 10/10/22 10/10/22 09:00 History multivitamin 1 tab PO DAILY@1200 06/30/20 10/10/22 10/09/22 History omega-3 fatty acids 1,000 mg 1,000 mg PO DAILY@1200 06/30/20 10/10/22 10/09/22 History capsule omeprazole 20 mg tablet,delayed 20 mg PO DAILY@0630 06/30/20 10/10/22 10/10/22 09:00 History release arginine HCl (L-arginine) 1,000 mg 1,000 mg PO DAILY 10/10/22 10/10/22 10/09/22 History tablet atorvastatin 40 mg tablet 40 mg PO MOTH@1800 10/10/22 10/10/22 10/09/22 History cyclosporine 0.05 % eye drops in a 1 drp ophthalmic (eye) Q12H 10/10/22 10/10/22 10/09/22 History dropperette (Restasis) lisinopril 20 mg tablet 1 tab PO DAILY 10/10/22 10/10/22 10/10/22 09:00 History sodium polystyrene sulfonate 15 60 ml PO SA@0900 10/10/22 10/10/22 10/07/22 History gram-sorbitol 20 gram/60 mL oral susp (SPS (with sorbitol)) Physical Exam Vital Signs: Vital Signs: Last Vital Signs Temp 96.4 F L 10/11/22 07:33 Pulse 72 10/11/22 07:33 Resp 19 10/11/22 07:33 BP 144/66 H 10/11/22 07:33 Pulse Ox 96 10/11/22 07:33 O2 Del Method 10/11/22 07:33 BMI result Body Mass Index 24.0 Const: General: cooperative and no acute distress Nutritional Appearance: well nourished Orientation/consciousness: patient oriented x3 Limitations: no limitations HEENT: Head: Yes normocephalic and Yes atraumatic Ears: hearing grossly nor mal bilaterally Resp: Effort & Inspection: normal respiratory effort, no audible wheezes, no cough and no respiratory distress Cardio: Jugular venous distension: no JVD GI: Inspection: Yes normal to inspection Skin: Other: Warm, dry, no rash Neuro: General: patient oriented x3 Extrem: Other: Left great toe with erythema and edema extending proximally. Ulceration noted at the nail bed and on the plantar surface of the great toe distal phalanx. No purulence discharge is noted at this time. Edema extends up over the tsringer. No other ulcers are noted. No palpable pulse noted at the DP or PT. General: Yes no clubbing, cyanosis or edema Ankle/foot/toe images: 1. 2. Results Labs 10/11/22 06:23 10/11/22 06:23 Labs: Abnormal lab results 10/10/22 10/10/22 10/10/22 Range/Units 11:25 11:25 11:25 RBC 3.94 L (4.60-5.80) X10*6/uL Hgb 12.9 L (14.0-18.0) g/dl Hct 38.5 L (42.0-52.0) % MCV (80.0-98.0) fL MCH (27.0-33.0) pg Immature Gran % (Auto) (0.0-0.4) % Emmet % (Auto) (2-11) % Abs Immat Gran (auto) 0.04 H (0.00-0.03) X10*3/uL ESR 54 H (0-15) MM/HR Chloride 109 H (96-108) mmol/L Carbon Dioxide (22-29) mmol/L BUN 26 H (9-16) mg/dL POC Glucose (60-115) mg/dL C-Reactive Protein 5.88 H (< or = 0.50) mg/dL 10/10/22 10/11/22 10/11/22 Range/Units 20:59 06:23 06:23 RBC 3.47 L (4.60-5.80) X10*6/uL Hgb 11.6 L (14.0-18.0) g/dl Hct 34.1 L (42.0-52.0) % MCV 98.3 H (80.0-98.0) fL MCH 33.4 H (27.0-33.0) pg Immature Gran % (Auto) 0.5 H (0.0-0.4) % Emmet % (Auto) 13.8 H (2-11) % Abs Immat Gran (auto) 0.04 H (0.00-0.03) X10*3/uL ESR (0-15) MM/HR Chloride 110 H (96-108) mmol/L Carbon Dioxide 21 L (22-29) mmol/L BUN 26 H (9-16) mg/dL POC Glucose 177 H (60-115) mg/dL C-Reactive Protein (< or = 0.50) mg/dL Short CBC 10/10/22 10/11/22 Range/Units 11:25 06:23 WBC 9.0 8.4 (4.8-10.8) X10*3/uL Hgb 12.9 L 11.6 L (14.0-18.0) g/dl Hct 38.5 L 34.1 L (42.0-52.0) % Plt Count 252 241 (160-400) X10*3/uL BMP 10/10/22 10/11/22 11:25 06:23 Sodium 141 139 Potassium 4.6 4.2 Chloride 109 H 110 H Carbon Dioxide 24 21 L BUN 26 H 26 H Creatinine 1.22 1.21 Calcium 9.5 8.6 D Liver Function 10/10/22 Range/Units 11:25 Total Bilirubin 0.7 (0.0-1.0) mg/dL AST 15 (5-37) U/L ALT 12 (0-40) U/L Alkaline Phosphatase 109 (39-117) U/L Albumin 4.2 (3.5-5.0) g/dL All other labs normal. Assessment and Plan (1) Cellulitis: Status: Acute (2) Skin ulcer of left great toe: Status: Acute (3) PAD (peripheral artery disease): Status: Acute (4) Diabetes: Status: Acute Plan 81-year-old male patient with longstanding diabetes and peripheral vascular disease found to have cellulitis involving the right great toe extending up the foot. Arterial studies do indicate significant arterial disease involving the popliteal. Recommend continuing antibiotics for the cellulitis. Dr. Gallegos will be away for the rest of this week but should be available for next week to evaluate. No immediate surgical intervention necessary at this time. Time Spent With Patient Time: Total time managing care of this patient today ____ minutes. Procedures Date of Service Date of Service: 10/11/22
[2022-10-11] MEDS: vancomycin HCL 1,000 MG in 0.9 % Sodium Chloride 250 ML 270 MG IV (11:17)
[2022-10-11 11:24] LABS: Glucose, Whole Blood 140 mg/dL (60-115)
[2022-10-11] MEDS: Multivitamin TABLET 1 TAB PO (11:25)
--- NOTE | 2022-10-11 12:55 | MHC.CM.PN ---
PATIENT LIVES WITH HIS ADULT SON. HCP IS ON FILE AND VERIFIED (DAUGHTER) NO DME OR [facility] SERVICES HE IS HOPING TO DC HOME WITH NO NEED FOR ABX. CASE MANAGEMENT FOLLOWING FOR DC PLAN. IMM 10/11 IN CHART
--- NOTE | 2022-10-11 13:12 | P.PNIM_ITS ---
Subjective Subjective Date of Service: 10/11/22 Interval History: No acute issues overnight. Pain control adequate Review of Systems Denies chest pain Denies shortness of breath Denies nausea vomiting diarrhea Denies fever chills Physical Exam Vital Signs: Vital Signs: Last Vital Signs Temp 96.4 F L 10/11/22 07:33 Pulse 72 10/11/22 07:33 Resp 19 10/11/22 07:33 BP 144/66 H 10/11/22 07:33 Pulse Ox 96 10/11/22 07:33 O2 Del Method 10/11/22 07:33 BMI result Body Mass Index 24.0 Const: Other: Awake alert oriented x3 no acute distress Resp: Other: Clear to auscultation bilaterally no rales rhonchi or wheezes Cardio: Other: No S4; positive S1-S2; no S3 murmurs rubs or gallops GI: Other: Soft nontender nondistended with normoactive bowel sounds Extrem: Other: Left great toe with erythema/edema extending up over ankle. Ulceration noted at the distal nail bed. No discharge Objective Data Active Medications Acetaminophen (Acetaminophen 325 Mg Tablet) 650 mg PO Q6H PRN PRN Reason: Pain, Mild (Pain Scale 1-3) Last Admin: 10/11/22 06:06 Dose: 650 mg Documented By: PURVI Atorvastatin Calcium (Atorvastatin Calcium 40 Mg Tablet) 40 mg PO MOTH@1800 MIC[facility]EL Dextrose (Dextrose 50 % 25 Gm/50 Ml Syringe) 25 gm IVPUSH Q15M PRN; Protocol PRN Reason: per Hypoglycemia Standing Ord. Enoxaparin Sodium (Enoxaparin Sodium 40 Mg/0.4 Ml Syringe) 40 mg SUBCUT Q24H [facility] Last Admin: 10/10/22 15:24 Dose: 40 mg Documented By: LUIS A-AHMET Glucose (Glucose Gel 15 Gm Gel..Gram.) 15 gm PO Q15M PRN; Protocol PRN Reason: per Hypoglycemia Standing Ord. Cefepime HCl 2 gm/ Sodium (Chloride) 50 mls @ 100 mls/hr IV Q8H [facility] Last Infusion: 10/11/22 06:38 Dose: 100 mls/hr Documented By: PURVI Vancomycin HCl 1,000 mg/ (Sodium Chloride) 270 mls @ 270 mls/hr IV Q24H [facility] Last Infusion: 10/11/22 12:17 Dose: 0 mls/hr Documented By: ANTHONY Insulin Human Lispro (Insulin Lispro 100 Unit/Ml 3 Ml Vial) 0 unit SUBCUT QIDACHS [facility]; Protocol Last Admin: 10/11/22 11:20 Dose: Not Given Documented By: ANTHONY Non-Admin Reason: No Insulin Coverage Lisinopril (Lisinopril 20 Mg Tablet) 20 mg PO DAILY [facility]; Protocol Last Admin: 10/11/22 07:50 Dose: 20 mg Documented By: ANTHONY Multivitamins/Vitamin C (Multivitamin Tablet) 1 tab PO DAILY@1200 [facility] Last Admin: 10/11/22 11:25 Dose: 1 tab Documented By: ANTHONY Non-Formulary Medication (Cyclosporine [Restasis]) 1 drop EYE-BOTH Q12H [facility] Omeprazole (Omeprazole 20 Mg Capsule.Dr) 20 mg PO DAILY@0630 [facility] Last Admin: 10/11/22 05:57 Dose: 20 mg Documented By: PURVI Ondansetron HCl (Ondansetron Hcl 4 Mg/2 Ml Vial) 4 mg IVPUSH Q8H PRN PRN Reason: Nausea and Vomiting Pharmacy Consult (Consult Rx Perform Med Rec) 1 each MISCELLANE ONCE PRN PRN Reason: Consult order Pharmacy Consult (Consult Rx Vancomycin Dosing) 1 each MISCELLANE DAILY PRN PRN Reason: Consult order Sodium Chloride (0.9 % Sodium Chloride Flush 3 Ml Syringe) 3 ml IVFLUSH QSHIFT [facility] Last Admin: 10/11/22 07:26 Dose: 3 ml Documented By: ANTHONY Sodium Polystyrene Sulfonate (Sodium Polystyrene Sulfon/Sorb 15 Gm/60 Ml Oral.Susp) 15 gm PO SA@0900 [facility] Labs 10/11/22 06:23 10/11/22 06:23 Labs: Laboratory Results - last 24 hr 10/10/22 10/10/22 10/10/22 13:03 16:56 20:59 MCV MCH MCHC RDW Plt Count MPV Immature Gran % (Auto) Neut % (Auto) Lymph % (Auto) [place] % (Auto) Eos % (Auto) Baso % (Auto) Lymph # (Auto) [place] # (Auto) Eos # (Auto) Baso # (Auto) Abs Immat Gran (auto) Absolute Neuts (auto) Absolute Nucleated RBC Nucleated RBC % (auto) Anion Gap Estim Creat Clear Calc Estimated GFR POC Glucose 88 177 H Random Glucose Calcium COVID-19 (BR[facility]ANY) Negative COVID-19 Clin Com See Note 10/11/22 10/11/22 10/11/22 06:23 06:23 07:31 MCV 98.3 H MCH 33.4 H MCHC 34.0 RDW 12.6 Plt Count 241 MPV 11.5 Immature Gran % (Auto) 0.5 H Neut % (Auto) 59.5 Lymph % (Auto) 23.9 [place] % (Auto) 13.8 H Eos % (Auto) 2.1 Baso % (Auto) 0.2 Lymph # (Auto) 2.0 [place] # (Auto) 1.2 Eos # (Auto) 0.2 Baso # (Auto) 0.0 Abs Immat Gran (auto) 0.04 H Absolute Neuts (auto) 5.0 Absolute Nucleated RBC 0.000 Nucleated RBC % (auto) 0.0 Anion Gap 12 Estim Creat Clear Calc 47.8 Estimated GFR 58 POC Glucose 72 Random Glucose 76 Calcium 8.6 D COVID-19 ([facility]) COVID-19 Clin Com 10/11/22 11:15 MCV MCH MCHC RDW Plt Count MPV Immature Gran % (Auto) Neut % (Auto) Lymph % (Auto) [place] % (Auto) Eos % (Auto) Baso % (Auto) Lymph # (Auto) [place] # (Auto) Eos # (Auto) Baso # (Auto) Abs Immat Gran (auto) Absolute Neuts (auto) Absolute Nucleated RBC Nucleated RBC % (auto) Anion Gap Estim Creat Clear Calc Estimated GFR POC Glucose 140 H Random Glucose Calcium COVID-19 ([facility]) COVID-19 Clin Com Microbiology Microbiology Results: Microbiology 10/10/22 11:26 Blood Culture - Preliminary Blood - Venous Prelim: GPC Gram Stain only 10/10/22 11:26 Blood Culture - Preliminary Blood - Venous Prelim: GPC Gram Stain only Assessment and Plan (1) Cellulitis: Status: Acute (2) Skin ulcer of left great toe: Status: Acute (3) PAD (peripheral artery disease): Status: Acute (4) Diabetes: Status: Acute Plan 81-year-old male with history of controlled type 2 diabetes last A1c 6.8% with diabetic neuropathy, peripheral artery disease, occassional cigar smoker, former cigarette smoker, hyperlipidemia, and hypertension admitted for management of cellulitis and left foot ulcer. 1.Acute cellulitis left foot/left great toe stage 2 ulceration related to PAD(hemodynamically significant left popliteal/infrapopliteal arterial disease) -IV vanco/cefepime -MRI pending 2.DMII -lispro correctional scale -continue to hold metformin -acceptable control presently. Add back metformin appropriate #HTN -continue home meds #PAD -continue statin, not on antiplatelet therapy Lovenox Full Code Requires ongoing hospitalization for IV antibiotics to treat severe cellulitis Time Spent With Patient Time: Total time managing care of this patient today ____ minutes. Quality Stroke Does the patient have a stroke diagnosis?: No VTE Prior VTE?: No VTE Risk Level:: Medical - moderate - high VTE Device Contraindication: Treatment Not Indicated VTE Drug Contraindication: N/A - Med Ordered
--- NOTE | 2022-10-11 15:19 | PC.NURSE ---
Pt with increased swelling to left LE. Encouraged to elevate while sitting up in chair
[2022-10-11 16:29] LABS: Glucose, Whole Blood 131 mg/dL (60-115)
[2022-10-11] MEDS: Enoxaparin Sodium 40 MG/0.4 ML SYRINGE SUBCUT (16:45)
[2022-10-11 20:00] VITALS: BP 157/74; PULSE 67; RESP 18; TEMP 36.7; O2SAT 97
[2022-10-11 21:16] LABS: Glucose, Whole Blood 169 mg/dL (60-115)
[2022-10-11] MEDS: Insulin Lispro 100 UNIT/ML 3 ML VIAL SUBCUT (22:13)
[2022-10-12 02:57] VITALS: BP 144/71; PULSE 75; RESP 18; TEMP 37.7; O2SAT 97
[2022-10-12] MEDS: 0.9 % Sodium Chloride Flush 3 ML SYRINGE IVFLUSH ×4 (03:51→20:24)
--- NOTE | 2022-10-12 05:53 | PM.EVENT ---
Event Note Date of Service: 10/12/22 Event Note: patient complaining of multiple episodes of diarrhea will rule out C diff Time Spent With Patient Time: Total time managing care of this patient today ____ minutes.
[2022-10-12] MEDS: cefEPime HCl 2 GM in 0.9 % Sodium Chloride 50 ML IV ×3 (06:12→22:51)
[2022-10-12] MEDS: Omeprazole 20 MG CAPSULE.DR PO (06:13)
[2022-10-12 07:21] VITALS: BP 155/70; PULSE 71; RESP 18; TEMP 37.2; O2SAT 96
[2022-10-12] MEDS: lisinopriL 20 MG TABLET PO (07:31)
[2022-10-12 07:51] LABS: Glucose, Whole Blood 80 mg/dL (60-115)
[2022-10-12 09:42] LABS: Vancomycin Random 11.7 mcg/mL (15-20)
[2022-10-12 10:33] LABS: CDiff Gene PCR NEGATIVE (Negative)
[2022-10-12 10:40] LABS: Creatinine Clr Calc Pharmacy 41.3; Estimated Glomerular Filt Rate 49
[2022-10-12 11:28] LABS: Glucose, Whole Blood 118 mg/dL (60-115)
--- NOTE | 2022-10-12 11:30 | HE.PHANOTE ---
Vancomycin Dosing Addendum Patients level came back this morning at 11.7 mg/L. Patients renal function has worsened over night scr going from 1.21 to 1.4. Will continue to keep dose at 1000 mg Q24H. Lowering dose at this time would become subtherapeutic. Predicted AUC 493 mg/L/hr. Next leif tomorrow 10/13 @0900
[2022-10-12] MEDS: Multivitamin TABLET 1 TAB PO (12:12)
[2022-10-12] MEDS: Enoxaparin Sodium 40 MG/0.4 ML SYRINGE SUBCUT (14:43)
--- NOTE | 2022-10-12 15:54 | P.PNIM_ITS ---
Subjective Subjective Date of Service: 10/12/22 Interval History: No acute issues overnight. Blood cultures x2 growing staph species Review of Systems Denies chest pain Denies shortness of breath Denies nausea vomiting diarrhea Denies fever chills Physical Exam Vital Signs: Vital Signs: Last Vital Signs Temp 98.9 F 10/12/22 07:21 Pulse 71 10/12/22 07:21 Resp 18 10/12/22 07:21 BP 155/70 H 10/12/22 07:21 Pulse Ox 96 10/12/22 07:21 O2 Del Method 10/12/22 07:21 BMI result Body Mass Index 24.0 Const: Other: Awake alert oriented x3 no acute distress Resp: Other: Clear to auscultation bilaterally no rales rhonchi or wheezes Cardio: Other: No S4; positive S1-S2; no S3 murmurs rubs or gallops GI: Other: Soft nontender nondistended with normoactive bowel sounds Extrem: Other: Left great toe with erythema/edema extending up over ankle. Ulceration noted at the distal nail bed. No discharge Objective Data Active Medications Acetaminophen (Acetaminophen 325 Mg Tablet) 650 mg PO Q6H PRN PRN Reason: Pain, Mild (Pain Scale 1-3) Last Admin: 10/11/22 06:06 Dose: 650 mg Documented By: PURVI Atorvastatin Calcium (Atorvastatin Calcium 40 Mg Tablet) 40 mg PO MOTH@1800 [facility] Dextrose (Dextrose 50 % 25 Gm/50 Ml Syringe) 25 gm IVPUSH Q15M PRN; Protocol PRN Reason: per Hypoglycemia Standing Ord. Enoxaparin Sodium (Enoxaparin Sodium 40 Mg/0.4 Ml Syringe) 40 mg SUBCUT Q24H [facility] Last Admin: 10/12/22 14:43 Dose: 40 mg Documented By: SUSIE Glucose (Glucose Gel 15 Gm Gel..Gram.) 15 gm PO Q15M PRN; Protocol PRN Reason: per Hypoglycemia Standing Ord. Cefepime HCl 2 gm/ Sodium (Chloride) 50 mls @ 100 mls/hr IV Q8H [facility] Last Infusion: 10/12/22 15:24 Dose: 0 mls/hr Documented By: SUSIE Vancomycin HCl 1,000 mg/ (Sodium Chloride) 270 mls @ 270 mls/hr IV Q24H [facility] Last Infusion: 10/11/22 12:17 Dose: 0 mls/hr Documented By: ANTHONY Insulin Human Lispro (Insulin Lispro 100 Unit/Ml 3 Ml Vial) 0 unit SUBCUT QIDACHS [facility]; Protocol Last Admin: 10/12/22 11:32 Dose: Not Given Documented By: SUSIE Non-Admin Reason: No Insulin Coverage Lisinopril (Lisinopril 20 Mg Tablet) 20 mg PO DAILY [facility]; Protocol Last Admin: 10/12/22 07:31 Dose: 20 mg Documented By: SUSIE Multivitamins/Vitamin C (Multivitamin Tablet) 1 tab PO DAILY@1200 [facility] Last Admin: 10/12/22 12:12 Dose: 1 tab Documented By: SUSIE Non-Formulary Medication (Cyclosporine [Restasis]) 1 drop EYE-BOTH Q12H [facility] Omeprazole (Omeprazole 20 Mg Capsule.Dr) 20 mg PO DAILY@0630 [facility] Last Admin: 10/12/22 06:13 Dose: 20 mg Documented By: CHRISTINE Ondansetron HCl (Ondansetron Hcl 4 Mg/2 Ml Vial) 4 mg IVPUSH Q8H PRN PRN Reason: Nausea and Vomiting Pharmacy Consult (Consult Rx Perform Med Rec) 1 each MISCELLANE ONCE PRN PRN Reason: Consult order Pharmacy Consult (Consult Rx Vancomycin Dosing) 1 each MISCELLANE DAILY PRN PRN Reason: Consult order Sodium Chloride (0.9 % Sodium Chloride Flush 3 Ml Syringe) 3 ml IVFLUSH QSHIFT [facility] Last Admin: 10/12/22 14:43 Dose: 3 ml Documented By: SUSIE Sodium Polystyrene Sulfonate (Sodium Polystyrene Sulfon/Sorb 15 Gm/60 Ml Oral.Susp) 15 gm PO SA@0900 [facility] Labs 10/11/22 06:23 10/12/22 Unknown Labs: Laboratory Results - last 24 hr 10/11/22 10/11/22 10/12/22 16:20 20:54 07:19 Estim Creat Clear Calc Estimated GFR POC Glucose 131 H 169 H 80 Random Vancomycin C. difficile Tox B Gene 10/12/22 10/12/22 10/12/22 09:09 09:22 11:12 Estim Creat Clear Calc Estimated GFR POC Glucose 118 H Random Vancomycin 11.7 L C. difficile Tox B Gene NEGATIVE 10/12/22 Unknown Estim Creat Clear Calc 41.3 Estimated GFR 49 POC Glucose Random Vancomycin C. difficile Tox B Gene Microbiology Microbiology Results: Microbiology 10/10/22 11:26 Blood Culture - Preliminary Blood - Venous Staphylococcus species 10/10/22 11:26 Blood Culture - Preliminary Blood - Venous Staphylococcus species Assessment and Plan (1) Cellulitis: Status: Acute (2) Diabetes: Status: Acute (3) Hypertension: Status: Acute Plan 81-year-old male with history of controlled type 2 diabetes last A1c 6.8% with diabetic neuropathy, peripheral artery disease, occassional cigar smoker, former cigarette smoker, hyperlipidemia, and hypertension admitted for management of cellulitis and left foot ulcer. 1.Acute cellulitis left foot/left great toe stage 2 ulceration related to PAD(hemodynamically significant left popliteal/infrapopliteal arterial disease) -IV vanco/cefepime -MRI consistent with osteomyelitis great toe -blood cultures drawn 10/10/22. . . 2/2 GPC await ID/sensitivities 2.DMII -lispro correctional scale -continue to hold metformin -acceptable control presently. Add back metformin appropriate #HTN -continue home meds #PAD -continue statin, not on antiplatelet therapy Lovenox Full Code Requires ongoing hospitalization for IV antibiotics to treat severe cellulitis Time Spent With Patient Time: Total time managing care of this patient today ____ minutes. Quality Stroke Does the patient have a stroke diagnosis?: No VTE Prior VTE?: No VTE Risk Level:: Medical - moderate - high VTE Device Contraindication: Treatment Not Indicated VTE Drug Contraindication: N/A - Med Ordered
[2022-10-12 16:00] VITALS: BP 148/69; PULSE 68; RESP 18; TEMP 37.2; O2SAT 97
[2022-10-12 16:20] LABS: Glucose, Whole Blood 168 mg/dL (60-115)
[2022-10-12] MEDS: Atorvastatin Calcium 40 MG TABLET PO (16:33)
[2022-10-12] MEDS: Insulin Lispro 100 UNIT/ML 3 ML VIAL SUBCUT (16:34)
[2022-10-12] MEDS: Acetaminophen 325 MG TABLET 650 MG PO (17:35)
[2022-10-12 20:00] VITALS: BP 128/60; PULSE 65; RESP 18; TEMP 36.6; O2SAT 97
[2022-10-12 20:10] LABS: Glucose, Whole Blood 122 mg/dL (60-115)
[2022-10-13] MEDS: Acetaminophen 325 MG TABLET 650 MG PO (01:33)
[2022-10-13 04:00] VITALS: BP 146/66; PULSE 67; RESP 18; TEMP 37; O2SAT 99
[2022-10-13] MEDS: Omeprazole 20 MG CAPSULE.DR PO (05:53)
[2022-10-13] MEDS: cefEPime HCl 2 GM in 0.9 % Sodium Chloride 50 ML IV ×3 (05:53→22:06)
[2022-10-13 06:19] LABS: MANUAL DIFF FLAG NO
[2022-10-13 06:33] LABS: Basophils Percent Auto 0.1 % (0-2); Eosinophils Absolute Auto 0.5 X10*3/uL (0.0-0.4); Hematocrit 32.5 % (42.0-52.0); Imm Gran Abs Auto 0.03 X10*3/uL (0.00-0.03); Imm Gran Pct Auto 0.4 % (0.0-0.4); Lymphocytes Absolute Auto 1.5 X10*3/uL (1.2-4.9); Lymphocytes Percent Auto 19.7 % (20-40); Mean Corpuscular HGB Conc 33.8 g/dl (31.0-36.0); Mean Corpuscular Hemoglobin 32.8 pg (27.0-33.0); Mean Platelet Volume 11.5 fL (9.4-12.4); Monocytes Absolute Auto 1.2 X10*3/uL (0.1-1.2); Monocytes Percent Auto 16.1 % (2-11); Neutrophils Absolute Auto 4.3 x10*3/uL (2.0-8.3); Neutrophils Percent Auto 57.7 % (45-73); Platelet Count 223 X10*3/uL (160-400); Red Blood Count 3.35 X10*6/uL (4.60-5.80); Red Cell Distribution Width 12.4 % (11.0-16.0); White Blood Count 7.5 X10*3/uL (4.8-10.8)
[2022-10-13 06:51] LABS: Creatinine Clr Calc Pharmacy 43.5; Estimated Glomerular Filt Rate 52
[2022-10-13 07:21] VITALS: BP 141/65; PULSE 59; RESP 18; TEMP 36.7; O2SAT 98
[2022-10-13 07:34] LABS: Glucose, Whole Blood 107 mg/dL (60-115)
--- NOTE | 2022-10-13 07:59 | HE.PHANOTE ---
Vancomycin Dosing Addendum Dose of 1000 mg on 10/12 was skipped, lab was not in by the time dose was due, was put on hold and resumed too late. Doing a 1 time dose of 1250 mg today and will receive a random level tomorrow morning 10/14 @0900 to see if patient is therapeutic. Renal function is remaining stable.
[2022-10-13] MEDS: lisinopriL 20 MG TABLET PO (08:54)
[2022-10-13] MEDS: 0.9 % Sodium Chloride Flush 3 ML SYRINGE IVFLUSH ×3 (08:55→23:59)
[2022-10-13] MEDS: oxyCODONE HCl Immed Release 5 MG TABLET PO ×3 (10:35→21:46)
--- NOTE | 2022-10-13 11:32 | P.PNIM_ITS ---
Subjective Subjective Date of Service: 10/13/22 Interval History: Increased pain today secondary to increased ambulation. States pain tolerable when foot up Review of Systems Denies chest pain Denies shortness of breath Denies nausea vomiting diarrhea Denies fever chills Physical Exam 2 Vital Signs: Vital Signs: Last Vital Signs Temp 98.1 F 10/13/22 07:21 Pulse 59 10/13/22 07:21 Resp 18 10/13/22 07:21 BP 141/65 H 10/13/22 07:21 Pulse Ox 98 10/13/22 07:21 O2 Del Method 10/13/22 07:21 BMI result Body Mass Index 24.0 Const: Other: Awake alert oriented x3 no acute distress Resp: Other: Clear to auscultation bilaterally no rales rhonchi or wheezes Cardio: Other: No S4; positive S1-S2; no S3 murmurs rubs or gallops GI: Other: Soft nontender nondistended with normoactive bowel sounds Extrem: Other: Left great toe with erythema/edema extending up over ankle. Ulceration noted at the distal nail bed. No discharge Objective Data Active Medications Acetaminophen (Acetaminophen 325 Mg Tablet) 650 mg PO Q6H PRN PRN Reason: Pain, Mild (Pain Scale 1-3) Last Admin: 10/13/22 01:33 Dose: 650 mg Documented By: EVELIN Atorvastatin Calcium (Atorvastatin Calcium 40 Mg Tablet) 40 mg PO MOTH@1800 MICHAEL Last Admin: 10/12/22 16:33 Dose: 40 mg Documented By: SUSIE Dextrose (Dextrose 50 % 25 Gm/50 Ml Syringe) 25 gm IVPUSH Q15M PRN; Protocol PRN Reason: per Hypoglycemia Standing Ord. Enoxaparin Sodium (Enoxaparin Sodium 40 Mg/0.4 Ml Syringe) 40 mg SUBCUT Q24H [facility] Last Admin: 10/12/22 14:43 Dose: 40 mg Documented By: SUSIE Glucose (Glucose Gel 15 Gm Gel..Gram.) 15 gm PO Q15M PRN; Protocol PRN Reason: per Hypoglycemia Standing Ord. Cefepime HCl 2 gm/ Sodium (Chloride) 50 mls @ 100 mls/hr IV Q8H [facility] Last Infusion: 10/13/22 06:40 Dose: 0 mls/hr Documented By: ADELAIDA Vancomycin HCl 1,000 mg/ (Sodium Chloride) 270 mls @ 270 mls/hr IV Q24H [facility] Vancomycin HCl 1,250 mg/ (Sodium Chloride) 250 mls @ 166.667 mls/hr IV ONCE ONE Stop: 10/13/22 12:29 Insulin Human Lispro (Insulin Lispro 100 Unit/Ml 3 Ml Vial) 0 unit SUBCUT QIDACHS [facility]; Protocol Last Admin: 10/13/22 08:49 Dose: Not Given Documented By: ELLEN Non-Admin Reason: No Insulin Coverage Lisinopril (Lisinopril 20 Mg Tablet) 20 mg PO DAILY [facility]; Protocol Last Admin: 10/13/22 08:54 Dose: 20 mg Documented By: ELLEN Multivitamins/Vitamin C (Multivitamin Tablet) 1 tab PO DAILY@1200 [facility] Last Admin: 10/12/22 12:12 Dose: 1 tab Documented By: SUSIE Omeprazole (Omeprazole 20 Mg Capsule.Dr) 20 mg PO DAILY@0630 [facility] Last Admin: 10/13/22 05:53 Dose: 20 mg Documented By: ADELAIDA Ondansetron HCl (Ondansetron Hcl 4 Mg/2 Ml Vial) 4 mg IVPUSH Q8H PRN PRN Reason: Nausea and Vomiting Oxycodone HCl (Oxycodone Hcl Immed Release 5 Mg Tablet) 5 mg PO Q4H PRN PRN Reason: Pain, Moderate (Pain Scale 4-6 Last Admin: 10/13/22 10:35 Dose: 5 mg Documented By: KARAN Pharmacy Consult (Consult Rx Perform Med Rec) 1 each MISCELLANE ONCE PRN PRN Reason: Consult order Pharmacy Consult (Consult Rx Vancomycin Dosing) 1 each MISCELLANE DAILY PRN PRN Reason: Consult order Sodium Chloride (0.9 % Sodium Chloride Flush 3 Ml Syringe) 3 ml IVFLUSH QSHIFT [facility] Last Admin: 10/13/22 08:55 Dose: 3 ml Documented By: ELLEN Sodium Polystyrene Sulfonate (Sodium Polystyrene Sulfon/Sorb 15 Gm/60 Ml Oral.Susp) 15 gm PO SA@0900 [facility] Labs 10/13/22 05:34 10/13/22 05:34 Labs: Laboratory Results - last 24 hr 10/12/22 10/12/22 10/13/22 16:07 19:58 05:34 MCV MCH MCHC RDW Plt Count MPV Immature Gran % (Auto) Neut % (Auto) Lymph % (Auto) Maury % (Auto) Eos % (Auto) Baso % (Auto) Lymph # (Auto) Maury # (Auto) Eos # (Auto) Baso # (Auto) Abs Immat Gran (auto) Absolute Neuts (auto) Absolute Nucleated RBC Nucleated RBC % (auto) Estim Creat Clear Calc 43.5 Estimated GFR 52 POC Glucose 168 H 122 H 10/13/22 10/13/22 05:34 07:16 MCV 97.0 MCH 32.8 MCHC 33.8 RDW 12.4 Plt Count 223 MPV 11.5 Immature Gran % (Auto) 0.4 Neut % (Auto) 57.7 Lymph % (Auto) 19.7 L Maury % (Auto) 16.1 H Eos % (Auto) 6.0 H Baso % (Auto) 0.1 Lymph # (Auto) 1.5 Maury # (Auto) 1.2 Eos # (Auto) 0.5 H Baso # (Auto) 0.0 Abs Immat Gran (auto) 0.03 Absolute Neuts (auto) 4.3 Absolute Nucleated RBC 0.000 Nucleated RBC % (auto) 0.0 Estim Creat Clear Calc Estimated GFR POC Glucose 107 Microbiology Microbiology Results: Microbiology 10/10/22 11:26 Blood Culture - Final Blood - Venous Staphylococcus epidermidis Coag negative Staphylococcus 10/10/22 11:26 Blood Culture - Final Blood - Venous Staphylococcus epidermidis Assessment and Plan (1) Cellulitis: Status: Acute (2) Diabetes: Status: Acute (3) Hypertension: Status: Acute Plan 81-year-old male with history of controlled type 2 diabetes last A1c 6.8% with diabetic neuropathy, peripheral artery disease, occassional cigar smoker, former cigarette smoker, hyperlipidemia, and hypertension admitted for management of cellulitis and left foot ulcer. 1.Acute cellulitis left foot/left great toe stage 2 ulceration related to PAD(hemodynamically significant left popliteal/infrapopliteal arterial disease) -IV vanco/cefepime -MRI consistent with osteomyelitis great toe -blood cultures drawn 10/10/22. . . 2/2 GPC .. Coag-negative staph -repeat cultures drawn 10/12/2022 -order PICC when complete 2.DMII -lispro correctional scale -continue to hold metformin -acceptable control presently. Add back metformin appropriate 3.HTN -continue home meds 4.PAD -continue statin, not on antiplatelet therapy Lovenox Full Code Requires ongoing hospitalization for IV antibiotics to treat osteomyelitis Time Spent With Patient Time: Total time managing care of this patient today ____ minutes. Quality Stroke Does the patient have a stroke diagnosis?: No VTE Prior VTE?: No VTE Risk Level:: Medical - moderate - high VTE Device Contraindication: Treatment Not Indicated VTE Drug Contraindication: N/A - Med Ordered
[2022-10-13 11:45] LABS: Glucose, Whole Blood 129 mg/dL (60-115)
[2022-10-13] MEDS: Multivitamin TABLET 1 TAB PO (11:59)
[2022-10-13] MEDS: vancomycin HCL 1,250 MG in 0.9 % Sodium Chloride 250 ML 166.67 MG IV (12:00)
[2022-10-13 15:22] VITALS: BP 139/101; PULSE 69; RESP 15; TEMP 36.8; O2SAT 97
[2022-10-13] MEDS: Enoxaparin Sodium 40 MG/0.4 ML SYRINGE SUBCUT (15:34)
[2022-10-13 16:18] LABS: Glucose, Whole Blood 108 mg/dL (60-115)
[2022-10-13 20:00] VITALS: BP 154/86; PULSE 72; RESP 17; TEMP 36.5; O2SAT 96
[2022-10-13 20:46] LABS: Glucose, Whole Blood 167 mg/dL (60-115)
[2022-10-13] MEDS: Insulin Lispro 100 UNIT/ML 3 ML VIAL SUBCUT (21:32)
[2022-10-14 04:00] VITALS: BP 150/79; PULSE 75; RESP 17; TEMP 36.7; O2SAT 95
[2022-10-14] MEDS: Omeprazole 20 MG CAPSULE.DR PO (05:37)
[2022-10-14] MEDS: oxyCODONE HCl Immed Release 5 MG TABLET PO ×3 (05:37→21:04)
[2022-10-14 05:55] LABS: Creatinine Clr Calc Pharmacy 39.1; Estimated Glomerular Filt Rate 46
[2022-10-14] MEDS: cefEPime HCl 2 GM in 0.9 % Sodium Chloride 50 ML IV ×2 (06:37→15:00)
[2022-10-14 06:47] VITALS: BP 133/60; PULSE 74; RESP 18; TEMP 36.1; O2SAT 94
[2022-10-14 07:13] LABS: Glucose, Whole Blood 103 mg/dL (60-115)
[2022-10-14] MEDS: lisinopriL 20 MG TABLET PO (08:29)
[2022-10-14] MEDS: Multivitamin TABLET 1 TAB PO (08:29)
[2022-10-14] MEDS: 0.9 % Sodium Chloride Flush 3 ML SYRINGE IVFLUSH ×2 (08:29→15:01)
[2022-10-14 09:56] LABS: Vancomycin Random 14.4 mcg/mL (15-20)
[2022-10-14] MEDS: Acetaminophen 325 MG TABLET 650 MG PO (10:23)
--- NOTE | 2022-10-14 10:28 | HE.PHANOTE ---
vancomycin addendum: level came back at 14.4, will continue same regimen and recheck level stephania
[2022-10-14 11:15] LABS: Glucose, Whole Blood 141 mg/dL (60-115)
[2022-10-14] MEDS: vancomycin HCL 1,000 MG in 0.9 % Sodium Chloride 250 ML 270 MG IV (11:28)
--- NOTE | 2022-10-14 11:53 | P.PNIM_ITS ---
Subjective Subjective Date of Service: 10/14/22 Interval History: Pain control adequate. Remains afebrile overnight Review of Systems Denies chest pain Denies shortness of breath Denies nausea vomiting diarrhea Denies fever chills Physical Exam Vital Signs: Vital Signs: Last Vital Signs Temp 97 F 10/14/22 06:47 Pulse 74 10/14/22 06:47 Resp 18 10/14/22 06:47 BP 133/60 10/14/22 06:47 Pulse Ox 94 10/14/22 06:47 O2 Del Method 10/14/22 06:47 BMI result Body Mass Index 24.0 Const: Other: Awake alert oriented x3 no acute distress Resp: Other: Clear to auscultation bilaterally no rales rhonchi or wheezes Cardio: Other: No S4; positive S1-S2; no S3 murmurs rubs or gallops GI: Other: Soft nontender nondistended with normoactive bowel sounds Extrem: Other: Left great toe with erythema/edema extending up over ankle. Ulceration noted at the distal nail bed. No discharge Objective Data Active Medications Acetaminophen (Acetaminophen 325 Mg Tablet) 650 mg PO Q6H PRN PRN Reason: Pain, Mild (Pain Scale 1-3) Last Admin: 10/14/22 10:23 Dose: 650 mg Documented By: LIBBY Atorvastatin Calcium (Atorvastatin Calcium 40 Mg Tablet) 40 mg PO MOTH@1800 [facility] Last Admin: 10/12/22 16:33 Dose: 40 mg Documented By: DABEyal Dextrose (Dextrose 50 % 25 Gm/50 Ml Syringe) 25 gm IVPUSH Q15M PRN; Protocol PRN Reason: per Hypoglycemia Standing Ord. Enoxaparin Sodium (Enoxaparin Sodium 40 Mg/0.4 Ml Syringe) 40 mg SUBCUT Q24H [facility] Last Admin: 10/13/22 15:34 Dose: 40 mg Documented By: LUIS A-PRINCESS Glucose (Glucose Gel 15 Gm Gel..Gram.) 15 gm PO Q15M PRN; Protocol PRN Reason: per Hypoglycemia Standing Ord. Cefepime HCl 2 gm/ Sodium (Chloride) 50 mls @ 100 mls/hr IV Q8H [facility] Last Infusion: 10/14/22 07:13 Dose: 0 mls/hr Documented By: HOWARD Vancomycin HCl 1,000 mg/ (Sodium Chloride) 270 mls @ 270 mls/hr IV Q24H [facility] Last Admin: 10/14/22 11:28 Dose: 270 mls/hr Documented By: LIBBY Insulin Human Lispro (Insulin Lispro 100 Unit/Ml 3 Ml Vial) 0 unit SUBCUT QIDACHS [facility]; Protocol Last Admin: 10/14/22 11:45 Dose: Not Given Documented By: LIBBY Non-Admin Reason: No Insulin Coverage Lisinopril (Lisinopril 20 Mg Tablet) 20 mg PO DAILY [facility]; Protocol Last Admin: 10/14/22 08:29 Dose: 20 mg Documented By: LIBBY Multivitamins/Vitamin C (Multivitamin Tablet) 1 tab PO DAILY@1200 [facility] Last Admin: 10/14/22 08:29 Dose: 1 tab Documented By: LIBBY Omeprazole (Omeprazole 20 Mg Capsule.Dr) 20 mg PO DAILY@0630 [facility] Last Admin: 10/14/22 05:37 Dose: 20 mg Documented By: HOWARD Ondansetron HCl (Ondansetron Hcl 4 Mg/2 Ml Vial) 4 mg IVPUSH Q8H PRN PRN Reason: Nausea and Vomiting Oxycodone HCl (Oxycodone Hcl Immed Release 5 Mg Tablet) 5 mg PO Q4H PRN PRN Reason: Pain, Moderate (Pain Scale 4-6 Last Admin: 10/14/22 10:24 Dose: 5 mg Documented By: LIBBY Pharmacy Consult (Consult Rx Perform Med Rec) 1 each MISCELLANE ONCE PRN PRN Reason: Consult order Pharmacy Consult (Consult Rx Vancomycin Dosing) 1 each MISCELLANE DAILY PRN PRN Reason: Consult order Sodium Chloride (0.9 % Sodium Chloride Flush 3 Ml Syringe) 3 ml IVFLUSH QSHIFT [facility] Last Admin: 10/14/22 08:29 Dose: 3 ml Documented By: LIBBY Sodium Polystyrene Sulfonate (Sodium Polystyrene Sulfon/Sorb 15 Gm/60 Ml Oral.Susp) 15 gm PO SA@0900 [facility] Last Admin: 10/14/22 11:20 Dose: Not Given Documented By: LIBBY Non-Admin Reason: Med Not Available Labs 10/13/22 05:34 10/14/22 05:21 Labs: Laboratory Results - last 24 hr 10/13/22 10/13/22 10/14/22 16:14 20:34 05:21 Estim Creat Clear Calc 39.1 Estimated GFR 46 POC Glucose 108 167 H Random Vancomycin 10/14/22 10/14/22 10/14/22 06:47 09:13 11:05 Estim Creat Clear Calc Estimated GFR POC Glucose 103 141 H Random Vancomycin 14.4 L Microbiology Microbiology Results: Microbiology 10/12/22 16:21 Blood Culture - Preliminary Blood - Venous No growth after 24 hours. 10/12/22 16:21 Blood Culture - Preliminary Blood - Venous No growth after 24 hours. 10/10/22 11:26 Blood Culture - Final Blood - Venous Staphylococcus epidermidis Coag negative Staphylococcus 10/10/22 11:26 Blood Culture - Final Blood - Venous Staphylococcus epidermidis Assessment and Plan (1) Cellulitis: Status: Acute (2) Diabetes: Status: Acute (3) Hypertension: Status: Acute Plan 81-year-old male with history of controlled type 2 diabetes last A1c 6.8% with diabetic neuropathy, peripheral artery disease, occassional cigar smoker, former cigarette smoker, hyperlipidemia, and hypertension admitted for management of cellulitis and left foot ulcer. 1.Acute cellulitis left foot/left great toe stage 2 ulceration related to PAD(hemodynamically significant left popliteal/infrapopliteal arterial disease) -IV vanco/cefepime (5) -MRI consistent with osteomyelitis great toe -blood cultures drawn 10/10/22. . . 2/2 GPC .. Coag-negative staph -repeat cultures drawn 10/12/2022 -order PICC 10/16/21 2.DMII -lispro correctional scale -continue to hold metformin -acceptable control presently. Add back metformin appropriate 3.HTN -continue home meds 4.PAD -continue statin, not on antiplatelet therapy Lovenox Full Code Requires ongoing hospitalization for IV antibiotics to treat osteomyelitis Time Spent With Patient Time: Total time managing care of this patient today ____ minutes. Quality Stroke Does the patient have a stroke diagnosis?: No VTE Prior VTE?: No VTE Risk Level:: Medical - moderate - high VTE Device Contraindication: Treatment Not Indicated VTE Drug Contraindication: N/A - Med Ordered
[2022-10-14 15:43] VITALS: BP 158/73; PULSE 61; RESP 17; TEMP 36.3; O2SAT 98
[2022-10-14 16:37] LABS: Glucose, Whole Blood 161 mg/dL (60-115)
[2022-10-14] MEDS: Insulin Lispro 100 UNIT/ML 3 ML VIAL SUBCUT (16:43)
[2022-10-14] MEDS: Enoxaparin Sodium 40 MG/0.4 ML SYRINGE SUBCUT (16:44)
[2022-10-14 19:29] VITALS: BP 146/77; PULSE 79; RESP 17; TEMP 36.1; O2SAT 99
[2022-10-14 20:31] LABS: Glucose, Whole Blood 104 mg/dL (60-115)
[2022-10-15] MEDS: 0.9 % Sodium Chloride Flush 3 ML SYRINGE IVFLUSH ×4 (00:47→23:23)
[2022-10-15] MEDS: cefEPime HCl 2 GM in 0.9 % Sodium Chloride 50 ML IV ×2 (03:05→14:23)
[2022-10-15 03:14] VITALS: BP 125/57; PULSE 63; RESP 18; TEMP 37; O2SAT 97
[2022-10-15] MEDS: Omeprazole 20 MG CAPSULE.DR PO (06:35)
[2022-10-15 06:36] LABS: MANUAL DIFF FLAG NO
[2022-10-15 06:43] LABS: Basophils Percent Auto 0.1 % (0-2); Eosinophils Absolute Auto 0.4 X10*3/uL (0.0-0.4); Eosinophils Percent Auto 5.7 % (0-4); Hematocrit 31.7 % (42.0-52.0); Hemoglobin 10.7 g/dl (14.0-18.0); Imm Gran Abs Auto 0.02 X10*3/uL (0.00-0.03); Imm Gran Pct Auto 0.3 % (0.0-0.4); Lymphocytes Absolute Auto 1.5 X10*3/uL (1.2-4.9); Lymphocytes Percent Auto 22.5 % (20-40); Mean Corpuscular HGB Conc 33.8 g/dl (31.0-36.0); Mean Corpuscular Hemoglobin 32.9 pg (27.0-33.0); Mean Corpuscular Volume 97.5 fL (80.0-98.0); Mean Platelet Volume 11.1 fL (9.4-12.4); Monocytes Absolute Auto 1.3 X10*3/uL (0.1-1.2); Monocytes Percent Auto 19.6 % (2-11); Neutrophils Absolute Auto 3.5 x10*3/uL (2.0-8.3); Neutrophils Percent Auto 51.8 % (45-73); Platelet Count 226 X10*3/uL (160-400); Red Blood Count 3.25 X10*6/uL (4.60-5.80); Red Cell Distribution Width 12.2 % (11.0-16.0); White Blood Count 6.8 X10*3/uL (4.8-10.8)
[2022-10-15 07:28] LABS: Alanine Aminotransferase 21 U/L (0-40); Albumin Level 3.3 g/dL (3.5-5.0); Alkaline Phosphatase 79 U/L (39-117); Anion Gap 13 (12-20); Aspartate Amino Transferase 30 U/L (5-37); Bilirubin Total 0.5 mg/dL (0.0-1.0); Blood Urea Nitrogen 42 mg/dL (9-16); Calcium 8.7 mg/dL (8.4-10.2); Carbon Dioxide 21 mmol/L (22-29); Chloride 110 mmol/L (96-108); Creatinine Clr Calc Pharmacy 38.3; Estimated Glomerular Filt Rate 45; Glucose Fasting 103 mg/dL (60-99); Potassium 4.8 mmol/L (3.3-5.1); Sodium 139 mmol/L (135-145); Total Protein 5.6 g/dL (6.5-8.0)
[2022-10-15 07:40] VITALS: BP 155/72; PULSE 75; RESP 17; TEMP 36.6; O2SAT 99
[2022-10-15 07:46] LABS: Glucose, Whole Blood 99 mg/dL (60-115)
[2022-10-15] MEDS: lisinopriL 20 MG TABLET PO (08:13)
[2022-10-15] MEDS: oxyCODONE HCl Immed Release 5 MG TABLET PO ×3 (08:14→20:27)
[2022-10-15 09:30] LABS: Vancomycin Random 15.4 mcg/mL (15-20)
[2022-10-15 11:50] LABS: Glucose, Whole Blood 137 mg/dL (60-115)
--- NOTE | 2022-10-15 12:00 | P.PNIM_ITS ---
Subjective Subjective Date of Service: 10/15/22 Interval History: Pain control adequate; oxycodone with affect Review of Systems Denies chest pain Denies shortness of breath Denies nausea vomiting diarrhea Denies fever chills Physical Exam Vital Signs: Vital Signs: Last Vital Signs Temp 97.8 F 10/15/22 07:40 Pulse 75 10/15/22 07:40 Resp 17 10/15/22 07:40 BP 155/72 H 10/15/22 07:40 Pulse Ox 99 10/15/22 07:40 O2 Del Method 10/15/22 07:40 BMI result Body Mass Index 24.0 Const: Other: Awake alert oriented x3 no acute distress Resp: Other: Clear to auscultation bilaterally no rales rhonchi or wheezes Cardio: Other: No S4; positive S1-S2; no S3 murmurs rubs or gallops GI: Other: Soft nontender nondistended with normoactive bowel sounds Extrem: Other: Left great toe with erythema/edema extending up over ankle. Ulceration noted at the distal nail bed. No discharge Objective Data Active Medications Acetaminophen (Acetaminophen 325 Mg Tablet) 650 mg PO Q6H PRN PRN Reason: Pain, Mild (Pain Scale 1-3) Last Admin: 10/14/22 10:23 Dose: 650 mg Documented By: LIBBY Atorvastatin Calcium (Atorvastatin Calcium 40 Mg Tablet) 40 mg PO MOTH@1800 [facility] Last Admin: 10/12/22 16:33 Dose: 40 mg Documented By: DABA Dextrose (Dextrose 50 % 25 Gm/50 Ml Syringe) 25 gm IVPUSH Q15M PRN; Protocol PRN Reason: per Hypoglycemia Standing Ord. Enoxaparin Sodium (Enoxaparin Sodium 40 Mg/0.4 Ml Syringe) 40 mg SUBCUT Q24H [facility] Last Admin: 10/14/22 16:44 Dose: 40 mg Documented By: BULMARO Glucose (Glucose Gel 15 Gm Gel..Gram.) 15 gm PO Q15M PRN; Protocol PRN Reason: per Hypoglycemia Standing Ord. Vancomycin HCl 1,000 mg/ (Sodium Chloride) 270 mls @ 270 mls/hr IV Q24H [facility] Last Infusion: 10/14/22 13:07 Dose: 270 mls/hr Documented By: LIBBY Cefepime HCl 2 gm/ Sodium (Chloride) 50 mls @ 100 mls/hr IV Q12H [facility] Last Infusion: 10/15/22 03:35 Dose: 0 mls/hr Documented By: HOWARD Insulin Human Lispro (Insulin Lispro 100 Unit/Ml 3 Ml Vial) 0 unit SUBCUT QIDACHS [facility]; Protocol Last Admin: 10/15/22 07:56 Dose: Not Given Documented By: MATTHIAS Non-Admin Reason: No Insulin Coverage Lisinopril (Lisinopril 20 Mg Tablet) 20 mg PO DAILY [facility]; Protocol Last Admin: 10/15/22 08:13 Dose: 20 mg Documented By: MATTHIAS Multivitamins/Vitamin C (Multivitamin Tablet) 1 tab PO DAILY@1200 [facility] Last Admin: 10/14/22 08:29 Dose: 1 tab Documented By: LIBBY Omeprazole (Omeprazole 20 Mg Capsule.Dr) 20 mg PO DAILY@0630 [facility] Last Admin: 10/15/22 06:35 Dose: 20 mg Documented By: HOWARD Ondansetron HCl (Ondansetron Hcl 4 Mg/2 Ml Vial) 4 mg IVPUSH Q8H PRN PRN Reason: Nausea and Vomiting Oxycodone HCl (Oxycodone Hcl Immed Release 5 Mg Tablet) 5 mg PO Q4H PRN PRN Reason: Pain, Moderate (Pain Scale 4-6 Last Admin: 10/15/22 08:14 Dose: 5 mg Documented By: MATTHIAS Pharmacy Consult (Consult Rx Perform Med Rec) 1 each MISCELLANE ONCE PRN PRN Reason: Consult order Pharmacy Consult (Consult Rx Vancomycin Dosing) 1 each MISCELLANE DAILY PRN PRN Reason: Consult order Sodium Chloride (0.9 % Sodium Chloride Flush 3 Ml Syringe) 3 ml IVFLUSH QSHIFT [facility] Last Admin: 10/15/22 08:14 Dose: 3 ml Documented By: MATTHIAS Sodium Polystyrene Sulfonate (Sodium Polystyrene Sulfon/Sorb 15 Gm/60 Ml Oral.Susp) 15 gm PO SA@0900 [facility] Last Admin: 10/14/22 11:20 Dose: Not Given Documented By: LIBBY Non-Admin Reason: Med Not Available Labs 10/15/22 05:45 10/15/22 05:45 Labs: Laboratory Results - last 24 hr 10/14/22 10/14/22 10/15/22 16:29 20:27 05:45 MCV MCH MCHC RDW Plt Count MPV Immature Gran % (Auto) Neut % (Auto) Lymph % (Auto) Parmer % (Auto) Eos % (Auto) Baso % (Auto) Lymph # (Auto) Parmer # (Auto) Eos # (Auto) Baso # (Auto) Abs Immat Gran (auto) Absolute Neuts (auto) Absolute Nucleated RBC Nucleated RBC % (auto) Anion Gap 13 Estim Creat Clear Calc 38.3 Estimated GFR 45 POC Glucose 161 H 104 Fasting Glucose 103 H Calcium 8.7 Total Bilirubin 0.5 AST 30 ALT 21 Alkaline Phosphatase 79 Total Protein 5.6 L Albumin 3.3 L Random Vancomycin 10/15/22 10/15/22 10/15/22 05:45 07:42 08:48 MCV 97.5 MCH 32.9 MCHC 33.8 RDW 12.2 Plt Count 226 MPV 11.1 Immature Gran % (Auto) 0.3 Neut % (Auto) 51.8 Lymph % (Auto) 22.5 Parmer % (Auto) 19.6 H Eos % (Auto) 5.7 H Baso % (Auto) 0.1 Lymph # (Auto) 1.5 Parmer # (Auto) 1.3 H Eos # (Auto) 0.4 Baso # (Auto) 0.0 Abs Immat Gran (auto) 0.02 Absolute Neuts (auto) 3.5 Absolute Nucleated RBC 0.000 Nucleated RBC % (auto) 0.0 Anion Gap Estim Creat Clear Calc Estimated GFR POC Glucose 99 Fasting Glucose Calcium Total Bilirubin AST ALT Alkaline Phosphatase Total Protein Albumin Random Vancomycin 15.4 10/15/22 11:46 MCV MCH MCHC RDW Plt Count MPV Immature Gran % (Auto) Neut % (Auto) Lymph % (Auto) Parmer % (Auto) Eos % (Auto) Baso % (Auto) Lymph # (Auto) Parmer # (Auto) Eos # (Auto) Baso # (Auto) Abs Immat Gran (auto) Absolute Neuts (auto) Absolute Nucleated RBC Nucleated RBC % (auto) Anion Gap Estim Creat Clear Calc Estimated GFR POC Glucose 137 H Fasting Glucose Calcium Total Bilirubin AST ALT Alkaline Phosphatase Total Protein Albumin Random Vancomycin Microbiology Microbiology Results: Microbiology 10/12/22 16:21 Blood Culture - Preliminary Blood - Venous No growth after 48 hours. 10/12/22 16:21 Blood Culture - Preliminary Blood - Venous No growth after 48 hours. Assessment and Plan (1) Osteomyelitis: Status: Acute (2) Diabetes: Status: Acute (3) Hypertension: Status: Acute Plan 81-year-old male with history of controlled type 2 diabetes last A1c 6.8% with diabetic neuropathy, peripheral artery disease, occassional cigar smoker, former cigarette smoker, hyperlipidemia, and hypertension admitted for management of cellulitis and left foot ulcer. 1.Acute cellulitis/osteomyelitis (left great toe) -IV vanco/cefepime (6) -blood cultures drawn 10/10/22. . . 2/2 GPC .. Coag-negative staph(contaminant) -repeat cultures drawn 10/12/2022... No growth times 48 hours -PICC 10/16/21 2.DMII -lispro correctional scale -continue to hold metformin -acceptable control presently. -Add back metformin appropriate 3.HTN -continue home meds 4.PAD -continue statin, not on antiplatelet therapy Lovenox Full Code Requires ongoing hospitalization for IV antibiotics to treat osteomyelitis Time Spent With Patient Time: Total time managing care of this patient today ____ minutes. Quality Stroke Does the patient have a stroke diagnosis?: No VTE Prior VTE?: No VTE Risk Level:: Medical - moderate - high VTE Device Contraindication: Treatment Not Indicated VTE Drug Contraindication: N/A - Med Ordered
[2022-10-15] MEDS: vancomycin HCL 1,000 MG in 0.9 % Sodium Chloride 250 ML 270 MG IV (12:08)
[2022-10-15] MEDS: Multivitamin TABLET 1 TAB PO (12:09)
[2022-10-15] MEDS: Enoxaparin Sodium 40 MG/0.4 ML SYRINGE SUBCUT (15:35)
[2022-10-15 15:39] LABS: Glucose, Whole Blood 187 mg/dL (60-115)
[2022-10-15] MEDS: Acetaminophen 325 MG TABLET 650 MG PO (15:39)
[2022-10-15 15:49] VITALS: BP 143/62; PULSE 64; RESP 18; TEMP 36.3; O2SAT 97
[2022-10-15] MEDS: Insulin Lispro 100 UNIT/ML 3 ML VIAL SUBCUT (17:06)
[2022-10-15 18:59] VITALS: BP 145/65; PULSE 58; RESP 18; TEMP 36.6; O2SAT 97
[2022-10-15 20:01] LABS: Glucose, Whole Blood 120 mg/dL (60-115)
[2022-10-16 02:55] VITALS: BP 167/75; PULSE 65; RESP 18; TEMP 36.3; O2SAT 100
[2022-10-16] MEDS: cefEPime HCl 2 GM in 0.9 % Sodium Chloride 50 ML IV ×2 (02:58→15:45)
[2022-10-16] MEDS: Omeprazole 20 MG CAPSULE.DR PO (05:43)
[2022-10-16 07:27] LABS: MANUAL DIFF FLAG NO
[2022-10-16 07:31] LABS: Basophils Percent Auto 0.1 % (0-2); Eosinophils Absolute Auto 0.4 X10*3/uL (0.0-0.4); Eosinophils Percent Auto 5.4 % (0-4); Hematocrit 32.2 % (42.0-52.0); Hemoglobin 10.9 g/dl (14.0-18.0); Imm Gran Abs Auto 0.02 X10*3/uL (0.00-0.03); Imm Gran Pct Auto 0.3 % (0.0-0.4); Lymphocytes Absolute Auto 1.9 X10*3/uL (1.2-4.9); Lymphocytes Percent Auto 25.9 % (20-40); Mean Corpuscular HGB Conc 33.9 g/dl (31.0-36.0); Mean Corpuscular Volume 97.6 fL (80.0-98.0); Mean Platelet Volume 11.2 fL (9.4-12.4); Monocytes Absolute Auto 1.2 X10*3/uL (0.1-1.2); Monocytes Percent Auto 16.2 % (2-11); Neutrophils Absolute Auto 3.8 x10*3/uL (2.0-8.3); Neutrophils Percent Auto 52.1 % (45-73); Platelet Count 245 X10*3/uL (160-400); Red Cell Distribution Width 12.3 % (11.0-16.0); White Blood Count 7.2 X10*3/uL (4.8-10.8)
[2022-10-16 07:37] VITALS: BP 141/71; PULSE 69; RESP 18; TEMP 37.1; O2SAT 95
[2022-10-16 07:39] LABS: Glucose, Whole Blood 89 mg/dL (60-115)
[2022-10-16 07:47] LABS: Alanine Aminotransferase 24 U/L (0-40); Albumin Level 3.3 g/dL (3.5-5.0); Alkaline Phosphatase 81 U/L (39-117); Anion Gap 15 (12-20); Aspartate Amino Transferase 32 U/L (5-37); Bilirubin Total 0.5 mg/dL (0.0-1.0); Blood Urea Nitrogen 48 mg/dL (9-16); Calcium 8.8 mg/dL (8.4-10.2); Carbon Dioxide 19 mmol/L (22-29); Chloride 112 mmol/L (96-108); Creatinine Clr Calc Pharmacy 36.2; Estimated Glomerular Filt Rate 42; Glucose Fasting 99 mg/dL (60-99); Sodium 141 mmol/L (135-145); Total Protein 5.9 g/dL (6.5-8.0)
--- NOTE | 2022-10-16 09:14 | HE.PHANOTE ---
Vancomycin Dosing Patient's SCr is slowly rising daily. Will decrease dose to vancomycin 750 mg Q24H. Next level is due to be drawn 10/17 @ 0900. Estefany ButtD
--- NOTE | 2022-10-16 10:44 | MHC.CM.PN ---
PER MD ROUNDS, PT WILL NEED IV ABX AT DC REFERRALS MADE TO [facility] AND [facility] IS CURRENTLY RUNNING PTS INSURANCE COVERAGE [facility] IS ACCEPTING REFERRAL
--- NOTE | 2022-10-16 10:47 | P.PICC_ITS ---
PICC Line Insertion NPICC Diagnosis: left foot ulcer osteomyelitis Indication: fdc antibiotics Pertinent Labs: reviewed Technique: Following informed consent including risks, benefits and alternatives and using sterile technique including cap and mask, sterile gown, glove and drape, the left arm was prepped and draped in the usual sterile fashion of full barrier technique with CHG. Following completion of [place] Protocol the skin and soft tissues were anesthetized with 1% Lidocaine plain. Using ultrasound guidance, the left basilic vein access was obtained in a single attempt by this RN. Over an 0.018 wire through peel-away sheath, a single lumen PASV 4 egyptian single lumen PICC line was positioned. Catheter length is 46 cm internal l ength, 0 cm external length, for a total trimmed length of 46 cm. The procedure was performed in S272. Tip verification was performed by Chelo Mendosa with Kavitha 3CG. Tip located in SVC. Ultrasound was used to document vein patency and for needle entry. A formal ultrasound picture and cardiac rhythm strip was recorded. [employer] has released the line for use and it is currently dressed with a StatLock, Tegaderm, and CHG disc. Verification has been performed for blood return and line patency. Arm Circumference: 27 cm Equipment: [employer] PowerPICC SOLO Catheter Type: PASV 4 egyptian single lumen Lot #: [id number]
[2022-10-16] MEDS: lisinopriL 20 MG TABLET PO (11:09)
[2022-10-16] MEDS: vancomycin HCL 750 MG in 0.9 % Sodium Chloride 250 ML 265 MG IV (11:10)
[2022-10-16] MEDS: Multivitamin TABLET 1 TAB PO (11:10)
[2022-10-16] MEDS: 0.9 % Sodium Chloride Flush 3 ML SYRINGE IVFLUSH ×3 (11:12→19:54)
[2022-10-16 11:14] LABS: Glucose, Whole Blood 135 mg/dL (60-115)
--- NOTE | 2022-10-16 13:43 | HO.PM.IMPN ---
Subjective Subjective Date of Service: 10/16/22 Interval History: Feet neuropathic L foot pain improved. redness also improved no fever Review of Systems Review of Systems: Yes all other systems are reviewed and are negative Physical Exam Vital Signs: Vital Signs: Last Vital Signs Temp 98.8 F 10/16/22 07:37 Pulse 69 10/16/22 07:37 Resp 18 10/16/22 07:37 BP 141/71 H 10/16/22 07:37 Pulse Ox 95 10/16/22 07:37 O2 Del Method 10/16/22 07:37 BMI result Body Mass Index 24.0 Gen: in no acute distress HEENT: sclera anicteric, moist mucus membranes Neck: supple Lungs: clear to auscultation bilaterally Heart: regular rate and rhythm, no murmurs Abd: soft, non-tender, non-distended Ext: no edema Skin: L great toe swollen with distal ulcer, no discharge. R 3rd toe blood blister. Neuro: alert and oriented x3, no focal findings Psych: appropriate affect Objective Data Active Medications Acetaminophen (Acetaminophen 325 Mg Tablet) 650 mg PO Q6H PRN PRN Reason: Pain, Mild (Pain Scale 1-3) Last Admin: 10/15/22 15:39 Dose: 650 mg Documented By: BULMARO Atorvastatin Calcium (Atorvastatin Calcium 40 Mg Tablet) 40 mg PO MOTH@1800 [facility] Last Admin: 10/12/22 16:33 Dose: 40 mg Documented By: DABEyal Dextrose (Dextrose 50 % 25 Gm/50 Ml Syringe) 25 gm IVPUSH Q15M PRN; Protocol PRN Reason: per Hypoglycemia Standing Ord. Enoxaparin Sodium (Enoxaparin Sodium 40 Mg/0.4 Ml Syringe) 40 mg SUBCUT Q24H [facility] Last Admin: 10/15/22 15:35 Dose: 40 mg Documented By: BULMARO Glucose (Glucose Gel 15 Gm Gel..Gram.) 15 gm PO Q15M PRN; Protocol PRN Reason: per Hypoglycemia Standing Ord. Cefepime HCl 2 gm/ Sodium (Chloride) 50 mls @ 100 mls/hr IV Q12H [facility] Last Infusion: 10/16/22 03:30 Dose: 0 mls/hr Documented By: SHA Vancomycin HCl 750 mg/ Sodium (Chloride) 265 mls @ 265 mls/hr IV Q24H [facility] Last Infusion: 10/16/22 13:17 Dose: 0 mls/hr Documented By: HORACE Insulin Human Lispro (Insulin Lispro 100 Unit/Ml 3 Ml Vial) 0 unit SUBCUT QIDACHS [facility]; Protocol Last Admin: 10/16/22 11:17 Dose: Not Given Documented By: HORACE Non-Admin Reason: No Insulin Coverage Lisinopril (Lisinopril 20 Mg Tablet) 20 mg PO DAILY [facility]; Protocol Last Admin: 10/16/22 11:09 Dose: 20 mg Documented By: HORACE Multivitamins/Vitamin C (Multivitamin Tablet) 1 tab PO DAILY@1200 [facility] Last Admin: 10/16/22 11:10 Dose: 1 tab Documented By: HORACE Omeprazole (Omeprazole 20 Mg Capsule.Dr) 20 mg PO DAILY@0630 [facility] Last Admin: 10/16/22 05:43 Dose: 20 mg Documented By: SHA Ondansetron HCl (Ondansetron Hcl 4 Mg/2 Ml Vial) 4 mg IVPUSH Q8H PRN PRN Reason: Nausea and Vomiting Oxycodone HCl (Oxycodone Hcl Immed Release 5 Mg Tablet) 5 mg PO Q4H PRN PRN Reason: Pain, Moderate (Pain Scale 4-6 Last Admin: 10/15/22 20:27 Dose: 5 mg Documented By: BULMARO Pharmacy Consult (Consult Rx Perform Med Rec) 1 each MISCELLANE ONCE PRN PRN Reason: Consult order Pharmacy Consult (Consult Rx Vancomycin Dosing) 1 each MISCELLANE DAILY PRN PRN Reason: Consult order Sodium Chloride (0.9 % Sodium Chloride Flush 3 Ml Syringe) 3 ml IVFLUSH QSHIFT [facility] Last Admin: 10/16/22 11:12 Dose: 3 ml Documented By: HORACE Sodium Polystyrene Sulfonate (Sodium Polystyrene Sulfon/Sorb 15 Gm/60 Ml Oral.Susp) 15 gm PO SA@0900 [facility] Last Admin: 10/14/22 11:20 Dose: Not Given Documented By: LIBBY Non-Admin Reason: Med Not Available Labs 10/16/22 07:09 10/16/22 07:09 Labs: Laboratory Results - last 24 hr 10/15/22 10/15/22 10/16/22 15:11 19:37 07:09 MCV MCH MCHC RDW Plt Count MPV Immature Gran % (Auto) Neut % (Auto) Lymph % (Auto) [place] % (Auto) Eos % (Auto) Baso % (Auto) Lymph # (Auto) [place] # (Auto) Eos # (Auto) Baso # (Auto) Abs Immat Gran (auto) Absolute Neuts (auto) Absolute Nucleated RBC Nucleated RBC % (auto) Anion Gap 15 Estim Creat Clear Calc 36.2 Estimated GFR 42 POC Glucose 187 H 120 H Fasting Glucose 99 Calcium 8.8 Total Bilirubin 0.5 AST 32 ALT 24 Alkaline Phosphatase 81 Total Protein 5.9 L Albumin 3.3 L 10/16/22 10/16/22 10/16/22 07:09 07:25 11:10 MCV 97.6 MCH 33.0 MCHC 33.9 RDW 12.3 Plt Count 245 MPV 11.2 Immature Gran % (Auto) 0.3 Neut % (Auto) 52.1 Lymph % (Auto) 25.9 [place] % (Auto) 16.2 H Eos % (Auto) 5.4 H Baso % (Auto) 0.1 Lymph # (Auto) 1.9 [place] # (Auto) 1.2 Eos # (Auto) 0.4 Baso # (Auto) 0.0 Abs Immat Gran (auto) 0.02 Absolute Neuts (auto) 3.8 Absolute Nucleated RBC 0.000 Nucleated RBC % (auto) 0.0 Anion Gap Estim Creat Clear Calc Estimated GFR POC Glucose 89 135 H Fasting Glucose Calcium Total Bilirubin AST ALT Alkaline Phosphatase Total Protein Albumin ITS Impressions Foot X-Ray 10/10/22 12:00 IMPRESSION: -Mild degenerative changes of the left foot without fracture. -Symmetrically shaped approximately 1.2 x 0.6 cm soft tissue density abutting the first distal phalanx is nonspecific but may represent an object external to the patient as it is not visualized in other views. Dedicated radiographs of the first toe can be obtained if clinically indicated. Duplex Scan Lower Extremity Artery 10/10/22 18:05 IMPRESSION: Findings consistent with hemodynamically significant left popliteal and infrapopliteal arterial disease. Foot MRI 10/11/22 16:03 IMPRESSION: Osteomyelitis of the distal phalanx of the great toe. No abscess. Assessment and Plan (1) Osteomyelitis: Status: Acute (2) Diabetes: Status: Acute (3) Hypertension: Status: Acute Plan d#7 81yo M with DM2 [A1c 6.8] + neuropathy, PAD, HLD, HTN admitted for osteomyelitis of L great toe # L great toe osteomyelitis + cellultiis - d#7 vanco + cefepime. PICC placed today. - BCx 10/10/22 -> contaminant. No growth from BCx from 10/12/22. - ID consultation re: home IV therapy # PAD - Vasc Surg consult, will need angiogram - continue statin # DM2 - correction-dose lispro # HTN - continue lisinopril # VTE ppx: LMWH # dispo: anticipate home with VNA In my clinical judgment, the patient requires continued inpatient hospitalization for the following reasons: IV ABX, operative intervention Time Spent With Patient Time: Total time managing care of this patient today __40__ minutes. Quality Stroke Does the patient have a stroke diagnosis?: No VTE Prior VTE?: No VTE Risk Level:: Medical - moderate - high VTE Device Contraindication: Treatment Not Indicated VTE Drug Contraindication: N/A - Med Ordered
[2022-10-16 15:09] VITALS: BP 162/71; PULSE 59; RESP 16; TEMP 36.4; O2SAT 96
--- NOTE | 2022-10-16 15:20 | P.CNID_ITS ---
History of Present Illness Data of Consult Service Date: 10/16/22 Requesting physician: Bry Hua Primary Care Provider: Omi Farrar MD HPI Reason for consult: left great toe osteomyelitis He presents on 10/10 with redness and swelling left leg for two days with redness toe. He has no fever or chills. He has left great toe wound and MRI left distal toe osteomyelitis. He had similar problem years ago and was seen at [facility]. Review of Systems Review of Systems: Yes all other systems are reviewed and are negative [facility] Past Medical History Medical History Hypertension PAD (peripheral artery disease) PSA (psoriatic arthritis) Skin ulcer of left great toe Type 2 diabetes mellitus Family History Family history: reviewed and not pertinent Social History Social History Household Members: Children Housing: House Alcohol intake: former Patient Tobacco Use Status: Never used Tobacco Tobacco use type: Cigarette Smoked in Last 30 Days: No Second Hand Smoke Exposure: No Use of substances other than those prescribed or required for medical reasons: No Currently Displaying Signs/Symptoms of Drug Intoxication Withdrawal: No Any prior treatment program specific to substance use: No Have you been hit, kicked, punched, or otherwise hurt by someone within the past year? If so, by whom?: No Do you feel safe in your current relationship?: No Is there a partner from a previous relationship who is making you feel unsafe now?: No Are you made to feel afraid or neglected: No Advance Directives: Yes Advance Directives Information Provided: No Advance Directives on File: No Advance Directives Date on File: 10/10/22 Do you have thoughts of harming others: None Recently lost weight without trying: No Nutrition Risks: No Nutritional Risk Meds Allergies Allergy/AdvReac Type Severity Reaction Status Date / Time clindamycin [From CLEOCIN] Allergy Severe BLACK STOOL Unverified 06/17/20 14:33 Active Medications: Current Medications Acetaminophen (Acetaminophen 325 Mg Tablet) 650 mg PO Q6H PRN PRN Reason: Pain, Mild (Pain Scale 1-3) Last Admin: 10/15/22 15:39 Dose: 650 mg Atorvastatin Calcium (Atorvastatin Calcium 40 Mg Tablet) 40 mg PO MOTH@1800 [facility] Last Admin: 10/12/22 16:33 Dose: 40 mg Dextrose (Dextrose 50 % 25 Gm/50 Ml Syringe) 25 gm IVPUSH Q15M PRN; Protocol PRN Reason: per Hypoglycemia Standing Ord. Enoxaparin Sodium (Enoxaparin Sodium 40 Mg/0.4 Ml Syringe) 40 mg SUBCUT Q24H [facility] Last Admin: 10/15/22 15:35 Dose: 40 mg Glucose (Glucose Gel 15 Gm Gel..Gram.) 15 gm PO Q15M PRN; Protocol PRN Reason: per Hypoglycemia Standing Ord. Cefepime HCl 2 gm/ Sodium (Chloride) 50 mls @ 100 mls/hr IV Q12H [facility] Last Infusion: 10/16/22 03:30 Dose: Infused Vancomycin HCl 750 mg/ Sodium (Chloride) 265 mls @ 265 mls/hr IV Q24H [facility] Last Infusion: 10/16/22 13:17 Dose: Infused Insulin Human Lispro (Insulin Lispro 100 Unit/Ml 3 Ml Vial) 0 unit SUBCUT QIDACHS [facility]; Protocol Last Admin: 10/16/22 11:17 Dose: Not Given Lisinopril (Lisinopril 20 Mg Tablet) 20 mg PO DAILY [facility]; Protocol Last Admin: 10/16/22 11:09 Dose: 20 mg Multivitamins/Vitamin C (Multivitamin Tablet) 1 tab PO DAILY@1200 [facility] Last Admin: 10/16/22 11:10 Dose: 1 tab Omeprazole (Omeprazole 20 Mg Capsule.Dr) 20 mg PO DAILY@0630 [facility] Last Admin: 10/16/22 05:43 Dose: 20 mg Ondansetron HCl (Ondansetron Hcl 4 Mg/2 Ml Vial) 4 mg IVPUSH Q8H PRN PRN Reason: Nausea and Vomiting Oxycodone HCl (Oxycodone Hcl Immed Release 5 Mg Tablet) 5 mg PO Q4H PRN PRN Reason: Pain, Moderate (Pain Scale 4-6 Last Admin: 10/15/22 20:27 Dose: 5 mg Pharmacy Consult (Consult Rx Perform Med Rec) 1 each MISCELLANE ONCE PRN PRN Reason: Consult order Pharmacy Consult (Consult Rx Vancomycin Dosing) 1 each MISCELLANE DAILY PRN PRN Reason: Consult order Sodium Chloride (0.9 % Sodium Chloride Flush 3 Ml Syringe) 3 ml IVFLUSH QSHIFT [facility] Last Admin: 10/16/22 11:12 Dose: 3 ml Sodium Polystyrene Sulfonate (Sodium Polystyrene Sulfon/Sorb 15 Gm/60 Ml Oral.Susp) 15 gm PO SA@0900 [facility] Last Admin: 10/14/22 11:20 Dose: Not Given Home Medications Medication Instructions Recorded Confirmed Last Taken Type metformin 500 mg tablet 500 mg PO BID 06/30/20 10/10/22 10/10/22 09:00 History multivitamin 1 tab PO DAILY@1200 06/30/20 10/10/22 10/09/22 History omega-3 fatty acids 1,000 mg 1,000 mg PO DAILY@1200 06/30/20 10/10/22 10/09/22 History capsule omeprazole 20 mg tablet,delayed 20 mg PO DAILY@0630 06/30/20 10/10/22 10/10/22 09:00 History release arginine HCl (L-arginine) 1,000 mg 1,000 mg PO DAILY 10/10/22 10/10/22 10/09/22 History tablet atorvastatin 40 mg tablet 40 mg PO MOTH@1800 10/10/22 10/10/22 10/09/22 History cyclosporine 0.05 % eye drops in a 1 drp ophthalmic (eye) Q12H 10/10/22 10/10/22 10/09/22 History dropperette (Restasis) lisinopril 20 mg tablet 1 tab PO DAILY 10/10/22 10/10/22 10/10/22 09:00 History sodium polystyrene sulfonate 15 60 ml PO SA@0900 10/10/22 10/10/22 10/07/22 History gram-sorbitol 20 gram/60 mL oral susp (SPS (with sorbitol)) Physical Exam Vital Signs: Vital Signs: Last Vital Signs Temp 97.6 F 10/16/22 15:09 Pulse 59 10/16/22 15:09 Resp 16 10/16/22 15:09 BP 162/71 H 10/16/22 15:09 Pulse Ox 96 10/16/22 15:09 O2 Del Method 10/16/22 15:09 BMI result Body Mass Index 24.0 Const: General: cooperative HEENT: Head: Yes normal to inspection Face and sinus: Yes normal facial e xam Mouth: Normal oral and palatal mucosa present Teeth and gingiva: dentition normal Eyes: General: appearance normal, both eyes and all related structures Pupils: Equal, round and reactive pupils present Resp: Effort & Inspection: normal respiratory effort Cardio: Rate: regular rate Rhythm: regular rhythm GI: Palpation (GI): Soft to palpation and nontender : General: Yes no CVA tenderness Back/Spine/Pelvis: Back: no CVA tenderness Skin: General skin exam: no rashes or lesions noted Neuro: General: moves all extremities Cranial nerves: Yes Equal, round and reactive pupils present Extrem: Other: left great tow distal dark area Psych: Appearance: grossly normal Results Labs 10/16/22 07:09 10/16/22 07:09 Labs: Short CBC 10/16/22 Range/Units 07:09 WBC 7.2 (4.8-10.8) X10*3/uL Hgb 10.9 L (14.0-18.0) g/dl Hct 32.2 L (42.0-52.0) % Plt Count 245 (160-400) X10*3/uL BMP 10/16/22 07:09 Sodium 141 Potassium 5.0 Chloride 112 H Carbon Dioxide 19 L BUN 48 H Creatinine 1.60 H Calcium 8.8 Liver Function 10/16/22 Range/Units 07:09 Total Bilirubin 0.5 (0.0-1.0) mg/dL AST 32 (5-37) U/L ALT 24 (0-40) U/L Alkaline Phosphatase 81 (39-117) U/L Albumin 3.3 L (3.5-5.0) g/dL Microbiology Microbiology Results: Microbiology 10/12/22 16:21 Blood - Venous Blood Culture - Preliminary No growth after 48 hours. 10/12/22 16:21 Blood - Venous Blood Culture - Preliminary No growth after 48 hours. 10/10/22 11:26 Blood - Venous Blood Culture - Final Staphylococcus epidermidis Coag negative Staphylococcus 10/10/22 11:26 Blood - Venous Blood Culture - Final Staphylococcus epidermidis Assessment and Plan (1) Osteomyelitis: Status: Acute (2) Cellulitis: Qualifiers: Site of cellulitis of extremity: toe Status: Acute He has possible staph or strep He has osteomyelitis left great toe infection Plan Would continue Vancomycin and Cefepime for now. Await final culture. Would likely give six weeks IV Ertapenem at home unless culture dictates otherwise. I am trying to find information from prior hospitalization. Time Spent With Patient Time: Total time managing care of this patient today ____ minutes.
--- NOTE | 2022-10-16 15:20 | P.CONGS_ITS ---
History of Present Illness Consult details Consult date: 10/16/22 Reason for consult: wound care Narrative: Pleasant 81-year-old gentleman presents for vascular evaluation regarding nonhealing ulcer of the left great toe. Upon discussion with him he reports that he quit smoking about 1 year prior prior to that he was smoking about a half a pack per day. Also of note he has been a diabetic for over 20 years. He had been seen at an outpatient vascular Center which oddly enough reported no vascular disease. He has undergone noninvasive testing and now presents to us for vascular evaluation. Review of Systems Review of Systems: Yes all other systems are reviewed and are negative Constitutional: Constitutional: Reports no additional constitutional complaints ENT: Reports Normal hearing present Cardiovascular: Cardiovascular: Denies chest pain, Denies chest pain at rest, Denies chest pain with activity and Denies pedal edema Respiratory: Respiratory: Denies cough Gastrointestinal: Gastrointestinal: Denies abdominal pain Musculoskeletal: Musculoskeletal: Denies abnormal gait, Denies muscle cramps and Denies radiating pain into limb Integumentary/Breasts: Skin/Breast: Denies skin ulcer and Denies wounds Neurologic: Reports Normal hearing present and Denies abnormal gait Psychiatric: Psychiatric: Reports no additional psychiatric complaints PMFSH Past Medical History Medical History (Updated 10/15/22 @ 12:07 by Audi Armstrong DO) Hypertension PAD (peripheral artery disease) PSA (psoriatic arthritis) Skin ulcer of left great toe Type 2 diabetes mellitus Social History Social History Household Members: Children Housing: House Alcohol intake: former Patient Tobacco Use Status: Never used Tobacco Tobacco use type: Cigarette Smoked in Last 30 Days: No Second Hand Smoke Exposure: No Use of substances other than those prescribed or required for medical reasons: No Currently Displaying Signs/Symptoms of Drug Intoxication Withdrawal: No Any prior treatment program specific to substance use: No Have you been hit, kicked, punched, or otherwise hurt by someone within the past year? If so, by whom?: No Do you feel safe in your current relationship?: No Is there a partner from a previous relationship who is making you feel unsafe now?: No Are you made to feel afraid or neglected: No Advance Directives: Yes Advance Directives Information Provided: No Advance Directives on File: No Advance Directives Date on File: 10/10/22 Do you have thoughts of harming others: None Recently lost weight without trying: No Nutrition Risks: No Nutritional Risk Meds Allergies Allergy/AdvReac Type Severity Reaction Status Date / Time clindamycin [From CLEOCIN] Allergy Severe BLACK STOOL Unverified 06/17/20 14:33 Active Medications: Current Medications Acetaminophen (Acetaminophen 325 Mg Tablet) 650 mg PO Q6H PRN PRN Reason: Pain, Mild (Pain Scale 1-3) Last Admin: 10/15/22 15:39 Dose: 650 mg Atorvastatin Calcium (Atorvastatin Calcium 40 Mg Tablet) 40 mg PO MOTH@1800 [facility] Last Admin: 10/12/22 16:33 Dose: 40 mg Dextrose (Dextrose 50 % 25 Gm/50 Ml Syringe) 25 gm IVPUSH Q15M PRN; Protocol PRN Reason: per Hypoglycemia Standing Ord. Enoxaparin Sodium (Enoxaparin Sodium 40 Mg/0.4 Ml Syringe) 40 mg SUBCUT Q24H [facility] Last Admin: 10/15/22 15:35 Dose: 40 mg Glucose (Glucose Gel 15 Gm Gel..Gram.) 15 gm PO Q15M PRN; Protocol PRN Reason: per Hypoglycemia Standing Ord. Cefepime HCl 2 gm/ Sodium (Chloride) 50 mls @ 100 mls/hr IV Q12H [facility] Last Infusion: 10/16/22 03:30 Dose: Infused Vancomycin HCl 750 mg/ Sodium (Chloride) 265 mls @ 265 mls/hr IV Q24H [facility] Last Infusion: 10/16/22 13:17 Dose: Infused Insulin Human Lispro (Insulin Lispro 100 Unit/Ml 3 Ml Vial) 0 unit SUBCUT QIDACHS [facility]; Protocol Last Admin: 10/16/22 11:17 Dose: Not Given Lisinopril (Lisinopril 20 Mg Tablet) 20 mg PO DAILY [facility]; Protocol Last Admin: 10/16/22 11:09 Dose: 20 mg Multivitamins/Vitamin C (Multivitamin Tablet) 1 tab PO DAILY@1200 [facility] Last Admin: 10/16/22 11:10 Dose: 1 tab Omeprazole (Omeprazole 20 Mg Capsule.Dr) 20 mg PO DAILY@0630 [facility] Last Admin: 10/16/22 05:43 Dose: 20 mg Ondansetron HCl (Ondansetron Hcl 4 Mg/2 Ml Vial) 4 mg IVPUSH Q8H PRN PRN Reason: Nausea and Vomiting Oxycodone HCl (Oxycodone Hcl Immed Release 5 Mg Tablet) 5 mg PO Q4H PRN PRN Reason: Pain, Moderate (Pain Scale 4-6 Last Admin: 10/15/22 20:27 Dose: 5 mg Pharmacy Consult (Consult Rx Perform Med Rec) 1 each MISCELLANE ONCE PRN PRN Reason: Consult order Pharmacy Consult (Consult Rx Vancomycin Dosing) 1 each MISCELLANE DAILY PRN PRN Reason: Consult order Sodium Chloride (0.9 % Sodium Chloride Flush 3 Ml Syringe) 3 ml IVFLUSH [facility] Last Admin: 10/16/22 11:12 Dose: 3 ml Sodium Polystyrene Sulfonate (Sodium Polystyrene Sulfon/Sorb 15 Gm/60 Ml Oral.Susp) 15 gm PO SA@09 [facility] Last Admin: 10/14/22 11:20 Dose: Not Given Home Medications Medication Instructions Recorded Confirmed Last Taken Type metformin 500 mg tablet 500 mg PO BID 06/30/20 10/10/22 10/10/22 09:00 History multivitamin 1 tab PO DAILY@1200 06/30/20 10/10/22 10/09/22 History omega-3 fatty acids 1,000 mg 1,000 mg PO DAILY@1200 06/30/20 10/10/22 10/09/22 History capsule omeprazole 20 mg tablet,delayed 20 mg PO DAILY@0630 06/30/20 10/10/22 10/10/22 09:00 History release arginine HCl (L-arginine) 1,000 mg 1,000 mg PO DAILY 10/10/22 10/10/22 10/09/22 History tablet atorvastatin 40 mg tablet 40 mg PO MOTH@1800 10/10/22 10/10/22 10/09/22 History cyclosporine 0.05 % eye drops in a 1 drp ophthalmic (eye) Q12H 10/10/22 10/10/22 10/09/22 History dropperette (Restasis) lisinopril 20 mg tablet 1 tab PO DAILY 10/10/22 10/10/22 10/10/22 09:00 History sodium polystyrene sulfonate 15 60 ml PO SA@0900 10/10/22 10/10/22 10/07/22 History gram-sorbitol 20 gram/60 mL oral susp (SPS (with sorbitol)) Physical Exam Vital Signs: Vital Signs: Last Vital Signs Temp 97.6 F 10/16/22 15:09 Pulse 59 10/16/22 15:09 Resp 16 10/16/22 15:09 BP 162/71 H 10/16/22 15:09 Pulse Ox 96 10/16/22 15:09 O2 Del Method 10/16/22 15:09 BMI result Body Mass Index 24.0 Const: General: cooperative, healthy appearing and comfortable Orientation/ consciousness: oriented to person, oriented to place and oriented to time HEENT: Head: Yes normal to inspection Neck: Neck: Yes normal visual inspection Carotids: no bruits Chest: Chest palpation & inspection: normal inspection of the chest Resp: Effort & Inspection: normal respiratory effort and able to speak in complete sentences Auscultation: clear to auscultation bilaterally, no crackles, no rales, no rhonchi and no wheezes Cardio: Rate: regular rate Rhythm: regular rhythm Heart sounds: S1 normal heart sound present and S2 normal heart sound present Bruits: no carotid bruits Peripheral pulses: dorsalis pedis present (Bilateral DP signals) GI: Inspection: Yes normal to inspection Skin: Wounds: no wounds Hair: normal Neuro: General: oriented to person, oriented to place and oriented to time Cranial nerves: Yes CN's II-XII intact bilaterally and Yes Normal hearing present Cognition (Neuro): normal cognition Motor exam (neuro): 5/5 motor strength present throughout Extrem: Other: Nonhealing left great toe, dusky right 2nd General: No clubbing, No cyanosis and Yes edema Psych: Appearance: grossly normal Mental Status: mental status grossly normal Speech and movement: Normal speech and movement present Results Labs 10/16/22 07:09 10/16/22 07:09 Labs: Abnormal lab results 10/15/22 10/15/22 10/16/22 Range/Units 15:11 19:37 07:09 RBC (4.60-5.80) X10*6/uL Hgb (14.0-18.0) g/dl Hct (42.0-52.0) % Jessamine % (Auto) (2-11) % Eos % (Auto) (0-4) % Chloride 112 H (96-108) mmol/L Carbon Dioxide 19 L (22-29) mmol/L BUN 48 H (9-16) mg/dL Creatinine 1.60 H (0.5-1.4) mg/dL POC Glucose 187 H 120 H (60-115) mg/dL Total Protein 5.9 L (6.5-8.0) g/dL Albumin 3.3 L (3.5-5.0) g/dL 10/16/22 10/16/22 Range/Units 07:09 11:10 RBC 3.30 L (4.60-5.80) X10*6/uL Hgb 10.9 L (14.0-18.0) g/dl Hct 32.2 L (42.0-52.0) % Jessamine % (Auto) 16.2 H (2-11) % Eos % (Auto) 5.4 H (0-4) % Chloride (96-108) mmol/L Carbon Dioxide (22-29) mmol/L BUN (9-16) mg/dL Creatinine (0.5-1.4) mg/dL POC Glucose 135 H (60-115) mg/dL Total Protein (6.5-8.0) g/dL Albumin (3.5-5.0) g/dL Short CBC 10/16/22 Range/Units 07:09 WBC 7.2 (4.8-10.8) X10*3/uL Hgb 10.9 L (14.0-18.0) g/dl Hct 32.2 L (42.0-52.0) % Plt Count 245 (160-400) X10*3/uL BMP 10/16/22 07:09 Sodium 141 Potassium 5.0 Chloride 112 H Carbon Dioxide 19 L BUN 48 H Creatinine 1.60 H Calcium 8.8 Liver Function 10/16/22 Range/Units 07:09 Total Bilirubin 0.5 (0.0-1.0) mg/dL AST 32 (5-37) U/L ALT 24 (0-40) U/L Alkaline Phosphatase 81 (39-117) U/L Albumin 3.3 L (3.5-5.0) g/dL All other labs normal. Assessment and Plan (1) PAD (peripheral artery disease): Status: Acute Plan Patient notes nonhealing left leg ulcer. I have discussed the pathophysiology of peripheral vascular disease with the patient. I have also discussed risk factor modification. I have reviewed the patient's arterial testing which reveals left-sided popliteal disease. the patient would benefit from a left leg endovascular peripheral angiogram with possible angioplasty, stent, and/or atherectomy. This has been discussed in detail with the patient along with risks, benefits, and complications. This includes but is not limited to bleeding, infection, heart attack, need for emergent surgical repair, limb ischemia, blood vessel damage, bleeding, puncture, kidney injury, bruising, allergic reaction, and skin reaction. The patient demonstrates a clear understanding. We will schedule for tomorrow. Thank you for allowing us to assist in this patient's care. Time Spent With Patient Time: Total time managing care of this patient today ____ minutes. Procedures Date of Service Date of Service: 10/16/22
[2022-10-16 15:51] LABS: Glucose, Whole Blood 109 mg/dL (60-115)
[2022-10-16 16:27] LABS: MANUAL DIFF FLAG NO
[2022-10-16 16:32] LABS: Basophils Percent Auto 0.1 % (0-2); Eosinophils Absolute Auto 0.3 X10*3/uL (0.0-0.4); Eosinophils Percent Auto 3.6 % (0-4); Hematocrit 33.7 % (42.0-52.0); Hemoglobin 11.1 g/dl (14.0-18.0); Imm Gran Abs Auto 0.02 X10*3/uL (0.00-0.03); Imm Gran Pct Auto 0.3 % (0.0-0.4); Lymphocytes Absolute Auto 1.9 X10*3/uL (1.2-4.9); Mean Corpuscular HGB Conc 32.9 g/dl (31.0-36.0); Mean Corpuscular Hemoglobin 32.8 pg (27.0-33.0); Mean Corpuscular Volume 99.7 fL (80.0-98.0); Mean Platelet Volume 10.7 fL (9.4-12.4); Monocytes Absolute Auto 1.4 X10*3/uL (0.1-1.2); Monocytes Percent Auto 18.4 % (2-11); Neutrophils Absolute Auto 4.1 x10*3/uL (2.0-8.3); Neutrophils Percent Auto 52.6 % (45-73); Platelet Count 243 X10*3/uL (160-400); Red Blood Count 3.38 X10*6/uL (4.60-5.80); Red Cell Distribution Width 12.3 % (11.0-16.0); White Blood Count 7.8 X10*3/uL (4.8-10.8)
[2022-10-16 16:47] LABS: Blood Urea Nitrogen 47 mg/dL (9-16); Creatinine Clr Calc Pharmacy 36.9; Estimated Glomerular Filt Rate 43
[2022-10-16] MEDS: Atorvastatin Calcium 40 MG TABLET PO (17:59)
[2022-10-16 19:21] VITALS: BP 137/72; PULSE 69; RESP 17; TEMP 36.5; O2SAT 98
[2022-10-16 19:49] LABS: Glucose, Whole Blood 140 mg/dL (60-115)
[2022-10-16] MEDS: oxyCODONE HCl Immed Release 5 MG TABLET PO (20:00)
[2022-10-17] MEDS: oxyCODONE HCl Immed Release 5 MG TABLET PO ×2 (00:01→22:13)
[2022-10-17] MEDS: cefEPime HCl 2 GM in 0.9 % Sodium Chloride 50 ML IV ×2 (02:57→15:59)
[2022-10-17 03:33] VITALS: BP 166/77; PULSE 66; RESP 17; TEMP 36.4; O2SAT 95
[2022-10-17 07:26] LABS: Glucose, Whole Blood 98 mg/dL (60-115)
[2022-10-17 07:52] VITALS: BP 172/78; PULSE 57; RESP 17; TEMP 36.6; O2SAT 98
[2022-10-17] MEDS: lisinopriL 20 MG TABLET PO (08:27)
[2022-10-17] MEDS: 0.9 % Sodium Chloride Flush 3 ML SYRINGE IVFLUSH (08:27)
[2022-10-17] MEDS: 0.9 % Sodium Chloride 1,000 ML 100 ML IVCONT ×2 (08:49→18:30)
[2022-10-17 09:34] LABS: Vancomycin Trough 18.9 mcg/mL (10.0-20.0)
[2022-10-17 09:39] LABS: Anion Gap 11 (12-20); Blood Urea Nitrogen 50 mg/dL (9-16); C Reactive Protein 5.08 mg/dL (< or = 0.50); Carbon Dioxide 23 mmol/L (22-29); Chloride 110 mmol/L (96-108); Creatinine Clr Calc Pharmacy 33.8; Estimated Glomerular Filt Rate 39; Glucose Random 101 mg/dL (60-115); Potassium 5.2 mmol/L (3.3-5.1); Sodium 139 mmol/L (135-145)
--- NOTE | 2022-10-17 09:51 | HE.PHANOTE ---
Vancomycin Dosing Patient's Cr continued to trend upwards. Level is therpaeutic today. Patient has not been on a stable regimen. Will decrease dose to 500 mg Q24H and get another random level tomorrow 10/18 @ 0900. Estefany ButtD
--- NOTE | 2022-10-17 09:52 | P.PNIM_ITS ---
Subjective Subjective Date of Service: 10/17/22 Interval History: SCr worsening- angiogram held L foot pain/redness no fever/chills Review of Systems Review of Systems: Yes all other systems are reviewed and are negative Physical Exam Vital Signs: Vital Signs: Last Vital Signs Temp 97.9 F 10/17/22 07:52 Pulse 57 10/17/22 07:52 Resp 17 10/17/22 07:52 BP 172/78 H 10/17/22 07:52 Pulse Ox 98 10/17/22 07:52 O2 Del Method 10/17/22 07:52 BMI result Body Mass Index 24.0 Gen: in no acute distress HEENT: sclera anicteric, moist mucus membranes Neck: supple Lungs: clear to auscultation bilaterally Heart: regular rate and rhythm, no murmurs Abd: soft, non-tender, non-distended Ext: no edema Skin: L great toe swollen with dry distal ulcer, no discharge. L foot red wit hout fluctuance/purulence.? R 3rd toe blood blister. Neuro: alert and oriented x3, no focal findings Psych: appropriate affect Objective Data Active Medications Acetaminophen (Acetaminophen 325 Mg Tablet) 650 mg PO Q6H PRN PRN Reason: Pain, Mild (Pain Scale 1-3) Last Admin: 10/15/22 15:39 Dose: 650 mg Documented By: BULMARO Atorvastatin Calcium (Atorvastatin Calcium 40 Mg Tablet) 40 mg PO MOTH@1800 [facility] Last Admin: 10/16/22 17:59 Dose: 40 mg Documented By: HORACE Dextrose (Dextrose 50 % 25 Gm/50 Ml Syringe) 25 gm IVPUSH Q15M PRN; Protocol PRN Reason: per Hypoglycemia Standing Ord. Enoxaparin Sodium (Enoxaparin Sodium 40 Mg/0.4 Ml Syringe) 40 mg SUBCUT Q24H [facility] Last Admin: 10/15/22 15:35 Dose: 40 mg Documented By: BULMARO Glucose (Glucose Gel 15 Gm Gel..Gram.) 15 gm PO Q15M PRN; Protocol PRN Reason: per Hypoglycemia Standing Ord. Cefepime HCl 2 gm/ Sodium (Chloride) 50 mls @ 100 mls/hr IV Q12H [facility] Last Infusion: 10/17/22 03:30 Dose: 0 mls/hr Documented By: HO.ODRISM Vancomycin HCl 750 mg/ Sodium (Chloride) 265 mls @ 265 mls/hr IV Q24H [facility] Last Infusion: 10/16/22 13:17 Dose: 0 mls/hr Documented By: OHRACE Sodium Chloride (Ns) 1,000 mls @ 100 mls/hr IVCONT .Q10H [facility] Last Admin: 10/17/22 08:49 Dose: 100 mls/hr Documented By: THOMAS Sodium Chloride (Ns) 1,000 mls @ 999 mls/hr IV .Q1H1M [facility] Stop: 10/17/22 11:00 Insulin Human Lispro (Insulin Lispro 100 Unit/Ml 3 Ml Vial) 0 unit SUBCUT QIDACHS [facility]; Protocol Last Admin: 10/17/22 08:27 Dose: Not Given Documented By: THOMAS Non-Admin Reason: No Insulin Coverage Lisinopril (Lisinopril 20 Mg Tablet) 20 mg PO DAILY [facility]; Protocol Last Admin: 10/17/22 08:27 Dose: 20 mg Documented By: THOMAS Multivitamins/Vitamin C (Multivitamin Tablet) 1 tab PO DAILY@1200 [facility] Last Admin: 10/16/22 11:10 Dose: 1 tab Documented By: HORACE Omeprazole (Omeprazole 20 Mg Capsule.Dr) 20 mg PO DAILY@0630 [facility] Last Admin: 10/17/22 05:29 Dose: Not Given Documented By: SHA Non-Admin Reason: NPO Ondansetron HCl (Ondansetron Hcl 4 Mg/2 Ml Vial) 4 mg IVPUSH Q8H PRN PRN Reason: Nausea and Vomiting Oxycodone HCl (Oxycodone Hcl Immed Release 5 Mg Tablet) 5 mg PO Q4H PRN PRN Reason: Pain, Moderate (Pain Scale 4-6 Last Admin: 10/17/22 00:01 Dose: 5 mg Documented By: SHA Pharmacy Consult (Consult Rx Perform Med Rec) 1 each MISCELLANE ONCE PRN PRN Reason: Consult order Pharmacy Consult (Consult Rx Vancomycin Dosing) 1 each MISCELLANE DAILY PRN PRN Reason: Consult order Sodium Chloride (0.9 % Sodium Chloride Flush 3 Ml Syringe) 3 ml IVFLUSH QSHIFT [facility] Last Admin: 10/17/22 08:27 Dose: 3 ml Documented By: THOMAS Sodium Polystyrene Sulfonate (Sodium Polystyrene Sulfon/Sorb 15 Gm/60 Ml Ora l.Susp) 15 gm PO SA@0900 [facility] Last Admin: 10/14/22 11:20 Dose: Not Given Documented By: LIBBY Non-Admin Reason: Med Not Available Labs 10/16/22 16:21 10/17/22 09:05 Labs: Laboratory Results - last 24 hr 10/16/22 10/16/22 10/16/22 11:10 15:46 16:21 MCV 99.7 H MCH 32.8 MCHC 32.9 RDW 12.3 Plt Count 243 MPV 10.7 Immature Gran % (Auto) 0.3 Neut % (Auto) 52.6 Lymph % (Auto) 25.0 Carson % (Auto) 18.4 H Eos % (Auto) 3.6 Baso % (Auto) 0.1 Lymph # (Auto) 1.9 Carson # (Auto) 1.4 H Eos # (Auto) 0.3 Baso # (Auto) 0.0 Abs Immat Gran (auto) 0.02 Absolute Neuts (auto) 4.1 Absolute Nucleated RBC 0.000 Nucleated RBC % (auto) 0.0 Anion Gap Estim Creat Clear Calc Estimated GFR POC Glucose 135 H 109 Random Glucose Calcium C-Reactive Protein Vancomycin Trough 10/16/22 10/16/22 10/17/22 16:21 19:37 07:13 MCV MCH MCHC RDW Plt Count MPV Immature Gran % (Auto) Neut % (Auto) Lymph % (Auto) Carson % (Auto) Eos % (Auto) Baso % (Auto) Lymph # (Auto) Carson # (Auto) Eos # (Auto) Baso # (Auto) Abs Immat Gran (auto) Absolute Neuts (auto) Absolute Nucleated RBC Nucleated RBC % (auto) Anion Gap Estim Creat Clear Calc 36.9 Estimated GFR 43 POC Glucose 140 H 98 Random Glucose Calcium C-Reactive Protein Vancomycin Trough 10/17/22 10/17/22 10/17/22 09:05 09:05 09:05 MCV MCH MCHC RDW Plt Count MPV Immature Gran % (Auto) Neut % (Auto) Lymph % (Auto) Carson % (Auto) Eos % (Auto) Baso % (Auto) Lymph # (Auto) Carson # (Auto) Eos # (Auto) Baso # (Auto) Abs Immat Gran (auto) Absolute Neuts (auto) Absolute Nucleated RBC Nucleated RBC % (auto) Anion Gap 11 L Cancelled Estim Creat Clear Calc 33.8 Cancelled Estimated GFR 39 Cancelled POC Glucose Random Glucose 101 Cancelled Calcium 9.0 Cancelled C-Reactive Protein 5.08 H Vancomycin Trough 18.9 Assessment and Plan (1) Osteomyelitis: Status: Acute (2) Diabetes: Status: Acute (3) Hypertension: Status: Acute Plan d#8 81yo M with DM2 [A1c 6.8] + neuropathy, PAD, HLD, HTN admitted for osteomyelitis of L great toe # L great toe osteomyelitis + cellulitis - d#8 vanco + cefepime. PICC placed 10/16/22. ID consulted, will likely transition to ertapenem upon discharge - BCx 10/10/22 -> contaminant. No growth from BCx from 10/12/22. # ESTEPHANIA - give fluids, check FENa/UA micro/urine eos, renal US, renal consult. hold lisinopril. recheck BMP in AM. # hyperK, mild - hold lisinopril, recheck BMP in AM # PAD - Vasc Surg consult, will need angiogram but held for now due to ESTEPHANIA - continue statin # DM2 - correction-dose lispro # HTN - hold lisinopril # VTE ppx: LMWH # dispo: anticipate home with VNA In my clinical judgment, the patient requires continued inpatient hospitalization for the following reasons: IV ABX, operative intervention, ESTEPHANIA Time Spent With Patient Time: Total time managing care of this patient today _35___ minutes. Quality Stroke Does the patient have a stroke diagnosis?: No VTE Prior VTE?: No VTE Risk Level:: Medical - moderate - high VTE Device Contraindication: Treatment Not Indicated VTE Drug Contraindication: N/A - Med Ordered
[2022-10-17 10:05] LABS: Erythrocyte Sedimentation Rate 70 MM/HR (0-15)
--- NOTE | 2022-10-17 10:34 | MHC.CM.PN ---
Addendum entered by Lorie Noriega RN 10/17/22 10:37: CORRECTION; INCREASED CREATININE Original Note: DECREASED CREATININE LEVELS PATIENT WILL UNDERGO [facility] UPDATED
[2022-10-17] MEDS: vancomycin HCL 500 MG in 0.9 % Sodium Chloride 100 ML 110 MG IV (10:47)
--- NOTE | 2022-10-17 10:59 | PM.CNNEP ---
History of Present Illness Reason for Consult Consult date: 10/17/22 Reason for consult: ESTEPHANIA Chief Complaint Chief complaint: L leg redness / LEFT LEG PAD History of Present Illness Narrative: 81-year-old male with history of controlled type 2 diabetes last A1c 6.8% with diabetic neuropathy, peripheral artery disease, occassional cigar smoker, former cigarette smoker, hyperlipidemia, and hypertension presented to the ED earlier today for evaluation of a wound on the tip of the left great toe with redness, swelling which he noticed today.? He states he has been having pain in the left great toe for about 3-4 days.? He states he does not check his feet regularly and where black compression stockings for 2 days at a minimum without changing them.? Denies any purulent drainage or fevers.? He denies any history of diabetic foot infection.On arrival, vital stable.? Renal function baseline, electrolytes normal.? Lactic acid 1.0.? ESR 54, CRP 5.88.? X-ray of the foot negative for any acute abnormality or osteomyelitis.? Patient given empiric Zosyn and vancomycin in the ED.? Patient to be admitted for further management of acute cellulitis and left foot ulcer. Review of Systems Constitutional: Denies body ache(s) and Denies fever(s) Eyes: Denies dry eyes and Denies loss of vision Denies Normal hearing present and Denies dysphagia Cardiovascular: Denies chest pain, Denies leg edema and Denies dyspnea Respiratory: Denies chest congestion, Denies pain with cough and Denies dyspnea Gastrointestinal: Denies change in bowel habits, Denies dysphagia and Denies vomiting Genitourinary: Denies difficulty urinating Musculoskeletal: Denies arthralgias and Denies stiffness Denies Normal hearing present, Denies focal weakness and Denies loss of vision [facility] Past Medical History Medical History Hypertension PAD (peripheral artery disease) PSA (psoriatic arthritis) Skin ulcer of left great toe Type 2 diabetes mellitus Family History Family history: reviewed and not pertinent Social History Social History Household Members: Children Housing: House Alcohol intake: former Patient Tobacco Use Status: Never used Tobacco Tobacco use type: Cigarette Smoked in Last 30 Days: No Second Hand Smoke Exposure: No Use of substances other than those prescribed or required for medical reasons: No Currently Displaying Signs/Symptoms of Drug Intoxication Withdrawal: No Any prior treatment program specific to substance use: No Have you been hit, kicked, punched, or otherwise hurt by someone within the past year? If so, by whom?: No Do you feel safe in your current relationship?: No Is there a partner from a previous relationship who is making you feel unsafe now?: No Are you made to feel afraid or neglected: No Advance Directives: Yes Advance Directives Information Provided: No Advance Directives on File: No Advance Directives Date on File: 10/10/22 Do you have thoughts of harming others: None Recently lost weight without trying: No Nutrition Risks: No Nutritional Risk Meds Allergies Allergy/AdvReac Type Severity Reaction Status Date / Time clindamycin [From CLEOCIN] Allergy Severe BLACK STOOL Verified 10/17/22 16:57 Active Medications: Current Medications Acetaminophen (Acetaminophen 325 Mg Tablet) 650 mg PO Q6H PRN PRN Reason: Pain, Mild (Pain Scale 1-3) Last Admin: 10/15/22 15:39 Dose: 650 mg Atorvastatin Calcium (Atorvastatin Calcium 40 Mg Tablet) 40 mg PO MOTH@1800 [facility] Last Admin: 10/16/22 17:59 Dose: 40 mg Dextrose (Dextrose 50 % 25 Gm/50 Ml Syringe) 25 gm IVPUSH Q15M PRN; Protocol PRN Reason: per Hypoglycemia Standing Ord. Enoxaparin Sodium (Enoxaparin Sodium 40 Mg/0.4 Ml Syringe) 40 mg SUBCUT Q24H [facility] Last Admin: 10/15/22 15:35 Dose: 40 mg Glucose (Glucose Gel 15 Gm Gel..Gram.) 15 gm PO Q15M PRN; Protocol PRN Reason: per Hypoglycemia Standing Ord. Cefepime HCl 2 gm/ Sodium (Chloride) 50 mls @ 100 mls/hr IV Q12H [facility] Last Infusion: 10/17/22 03:30 Dose: Infused Sodium Chloride (Ns) 1,000 mls @ 100 mls/hr IVCONT .Q10H [facility] Last Admin: 10/17/22 08:49 Dose: 100 mls/hr Sodium Chloride (Ns) 1,000 mls @ 999 mls/hr IV .Q1H1M [facility] Stop: 10/17/22 11:00 Vancomycin HCl 500 mg/ Sodium (Chloride) 110 mls @ 110 mls/hr IV Q24H [facility] Last Admin: 10/17/22 10:47 Dose: 110 mls/hr Insulin Human Lispro (Insulin Lispro 100 Unit/Ml 3 Ml Vial) 0 unit SUBCUT QIDACHS [facility]; Protocol Last Admin: 10/17/22 08:27 Dose: Not Given Lisinopril (Lisinopril 20 Mg Tablet) 20 mg PO DAILY [facility]; Protocol Last Admin: 10/17/22 08:27 Dose: 20 mg Multivitamins/Vitamin C (Multivitamin Tablet) 1 tab PO DAILY@1200 [facility] Last Admin: 10/16/22 11:10 Dose: 1 tab Omeprazole (Omeprazole 20 Mg Capsule.Dr) 20 mg PO DAILY@06 [facility] Last Admin: 10/17/22 05:29 Dose: Not Given Ondansetron HCl (Ondansetron Hcl 4 Mg/2 Ml Vial) 4 mg IVPUSH Q8H PRN PRN Reason: Nausea and Vomiting Oxycodone HCl (Oxycodone Hcl Immed Release 5 Mg Tablet) 5 mg PO Q4H PRN PRN Reason: Pain, Moderate (Pain Scale 4-6 Last Admin: 10/17/22 00:01 Dose: 5 mg Pharmacy Consult (Consult Rx Perform Med Rec) 1 each MISCELLANE ONCE PRN PRN Reason: Consult order Pharmacy Consult (Consult Rx Vancomycin Dosing) 1 each MISCELLANE DAILY PRN PRN Reason: Consult order Sodium Chloride (0.9 % Sodium Chloride Flush 3 Ml Syringe) 3 ml IVFLUSH QSHIFT [facility] Last Admin: 10/17/22 08:27 Dose: 3 ml Sodium Polystyrene Sulfonate (Sodium Polystyrene Sulfon/Sorb 15 Gm/60 Ml Oral.Susp) 15 gm PO SA@0900 [facility] Last Admin: 10/14/22 11:20 Dose: Not Given Home Medications Medication Instructions Recorded Confirmed Last Taken Type metformin 500 mg tablet 500 mg PO BID 06/30/20 10/10/22 10/10/22 09:00 History multivitamin 1 tab PO DAILY@119906/30/20 10/10/22 10/09/22 History omega-3 fatty acids 1,000 mg 1,000 mg PO DAILY@119906/30/20 10/10/22 10/09/22 History capsule omeprazole 20 mg tablet,delayed 20 mg PO DAILY@0630 06/30/20 10/10/22 10/10/22 09:00 History release arginine HCl (L-arginine) 1,000 mg 1,000 mg PO DAILY 10/10/22 10/10/22 10/09/22 History tablet atorvastatin 40 mg tablet 40 mg PO MOTH@1800 10/10/22 10/10/22 10/09/22 History cyclosporine 0.05 % eye drops in a 1 drp ophthalmic (eye) Q12H 10/10/22 10/10/22 10/09/22 History dropperette (Restasis) lisinopril 20 mg tablet 1 tab PO DAILY 10/10/22 10/10/22 10/10/22 09:00 History sodium polystyrene sulfonate 15 60 ml PO SA@0900 10/10/22 10/10/22 10/07/22 History gram-sorbitol 20 gram/60 mL oral susp (SPS (with sorbitol)) Physical Exam Vital Signs: Last Vital Signs Temp 97.9 F 10/17/22 07:52 Pulse 57 10/17/22 07:52 Resp 17 10/17/22 07:52 BP 172/78 H 10/17/22 07:52 Pulse Ox 98 10/17/22 07:52 O2 Del Method 10/17/22 07:52 BMI result Body Mass Index 24.0 Const Other: Awake alert oriented x3 no acute distress General: cooperative, healthy appearing, comfortable, no acute distress, alert and awake Nutritional Appearance: well nourished Orientation/consciousness: oriented to person, oriented to place, oriented to time and patient oriented x3 Limitations: no limitations HEENT Head: Yes normal to inspection, Yes normocephalic and Yes atraumatic Ears: hearing grossly normal bilaterally and external ears normal General nose exam: Normal external nose present, no nasal discharge noted and no epistaxis Face and sinus: Yes normal facial exam, No abrasion and No laceration Mouth: Normal oral and palatal mucosa present, no drooling and no muffled voice Teeth and gingiva: dentition normal Eyes General: appearance normal, both eyes and all related structures Periorbital: periorbital findings normal Eyelids: Yes eyelids normal Conjunctivae: conjunctivae normal Pupils: Equal, round and reactive pupils present EOM: EOMs intact bilaterally Neck Neck: Yes normal visual inspection, Yes full ROM and Yes no lymphadenopathy Carotids: no bruits Chest Chest palpation & inspection: normal inspection of the chest Resp Other: Clear to auscultation bilaterally no rales rhonchi or wheezes Effort & Inspection: normal respiratory effort, able to speak in complete sentences, no audible wheezes, no cough and no respiratory distress Auscultation: clear to auscultation bilaterally, no crackles, no rales, no rhonchi and no wheezes Cardio Other: No S4; positive S1-S2; no S3 murmurs rubs or gallops Jugular venous distension: no JVD Rate: regular rate Rhythm: regular rhythm Heart sounds: S1 normal heart sound present and S2 normal heart sound present Bruits: no carotid bruits Peripheral pulses: dorsalis pedis present (Bilateral DP signals) GI Other: Soft nontender nondistended with normoactive bowel sounds Inspection: Yes normal to inspection Palpation (GI): Soft to palpation, not firm, nontender, no guarding and not rigid General: Yes no CVA tenderness Back/Spine/Pelvis Back: no CVA tenderness Skin Other: Warm, dry, no rash General skin exam: no rashes or lesions noted Wounds: no wounds Hair: normal Neuro General: oriented to person, oriented to place, oriented to time, patient oriented x3 and moves all extremities Cranial nerves: Yes Equal, round and reactive pupils present and No Normal hearing present Cognition (Neuro): normal cognition Motor exam (neuro): 5/5 motor strength present throughout Sensory Exam: Normal double simultaneous stimulation for sensation Coordination: [id number] test normal Extrem Other: left great tow distal dark area General: Yes normal to inspection, Yes full ROM, Yes capillary refill normal, Yes no clubbing, cyanosis or edema, No clubbing, No cyanosis and Yes edema Psych Appearance: grossly normal Mental Status: mental status grossly normal Speech and movement: Normal speech and movement present Affect: normal affect Attitude: cooperative Thought process: Normal thought process present Thought content: Normal thought content present Insight: Good insight present (Psych) Results Lab Results 10/16/22 16:21 10/17/22 09:05 Lab results: Chemistry 10/15/22 10/16/22 10/16/22 05:45 07:09 16:21 Sodium 139 141 Potassium 4.8 5.0 Carbon Dioxide 21 L 19 L BUN 42 H 48 H 47 H Creatinine 1.51 H 1.60 H 1.57 H Calcium 8.7 8.8 10/17/22 10/17/22 09:05 09:05 Sodium 139 Cancelled Potassium 5.2 H Cancelled Carbon Dioxide 23 Cancelled BUN 50 H Cancelled Creatinine 1.71 H Cancelled Calcium 9.0 Cancelled Hematology 10/15/22 10/16/22 10/16/22 05:45 07:09 16:21 WBC 6.8 7.2 7.8 Hgb 10.7 L 10.9 L 11.1 L Plt Count 226 245 243 Assessment and Plan (1) Osteomyelitis: Status: Acute (2) Diabetes: Status: Acute (3) Hypertension: Status: Acute (4) ESTEPHANIA (acute kidney injury): Status: Acute Plan ESTEPHANIA Most likely due to obstruction Possible vanco induce tubular injury ? Hypoperfusion asiya Pepper Suggest Guadalupe Hold Lisinopril Renally dose Vanco and other meds Hold Angio until creatinine returns to baseline Shall follow Thank you Time Spent With Patient Time: Total time managing care of this patient today ____ minutes. Procedures Date of Service Date of Service: 10/17/22
[2022-10-17 11:13] LABS: Glucose, Whole Blood 80 mg/dL (60-115)
--- NOTE | 2022-10-17 11:22 | P.CDIC_ITS ---
CDI Concurrent Query Documentation Clarification: PHYSICIAN'S DOCUMENTATION REQUEST Date of Query: 10/17/22 1122 Patient Name: Lefty Ortiz Admit Date: 10/10/22 Dear Doctor, A review of the medical record indicates additional documentation may be needed. Please review below and update the documentation accordingly. Clinical Indicators: Is there an acuity to the documentation of osteomyelitis: Risk Factors/Clinical Indicators/Treatments PN 10/16 - Left great toe osteomyelitis and cellulitis. d#8 vanco + cefepime, PICC line placed 10/16/22. Based on the above, could you clarify in the Progress Notes the appropriate diagnosis, if significant, that supports the above abnormalities and additional evaluation, monitoring, and/or treatment rendered: * Acute osteomyelitis, left great toe * Osteomyelitis, left great toe * Other (please specify) * Unable to determine Use of terms such as suspected, likely, concern for, or probable (associated with a specific diagnosis that is being evaluated, monitored, or treated as if it exists) are acceptable and can be coded in the inpatient setting, when documented at the time of discharge. Thank you, Melinda Lemons [facility], CDIS Extension: [phone] Please use your independent medical judgment in providing your response. THIS QUERY IS PART OF THE PERMANENT MEDICAL RECORD Provider Response: Other Other Diagnosis: acute
[2022-10-17] MEDS: 0.9 % Sodium Chloride 1,000 ML 999 ML IV (12:30)
--- NOTE | 2022-10-17 12:32 | HO.VASCPN ---
Subjective Subjective Date of Service: 10/17/22 Patient reports: no new complaints and feels better Interval history: Very pleasant 81-year-old gentleman presents for follow-up regarding peripheral angiogram. He was originally scheduled for today. He reports that he has had no interval issues. Now for follow-up. Physical Exam Vital Signs: Vital Signs: Last Vital Signs Temp 97.9 F 10/17/22 07:52 Pulse 57 10/17/22 07:52 Resp 17 10/17/22 07:52 BP 172/78 H 10/17/22 07:52 Pulse Ox 98 10/17/22 07:52 O2 Del Method 10/17/22 07:52 BMI result Body Mass Index 24.0 Const: General: cooperative, healthy appearing and no acute distress Orientation/consciousness: oriented to person, oriented to place and oriented to time HEENT: Head: Yes normal to inspection Neck: Carotids: no bruits Chest: Chest palpation & inspection: normal inspection of the chest Resp: Effort & Inspection: normal respiratory effort and able to speak in complete sentences Auscultation: clear to auscultation bilaterally Cardio: Rate: regular rate Heart sounds: S1 normal heart sound present and S2 normal heart sound present GI: Inspection: Yes normal to inspection Skin: General skin exam: no rashes or lesions noted Wounds: wounds noted (Left foot) Neuro: General: oriented to person, oriented to place, oriented to time and CN's II-XI intact bilaterally Extrem: General: Yes normal to inspection, Yes full ROM and Yes no clubbing, cyanosis or edema Psych: Appearance: grossly normal and well kempt Speech and movement: Normal speech and movement present Affect: normal affect Progress Note: A&P Assessment and plan (1) PAD (peripheral artery disease): Status: Acute Assessment and Plan: In short patient has nonhealing left foot wound. There is a concern of popliteal occlusion. He will require endovascular intervention. Unfortunately his renal function has progressively been declining. I did discuss this case with the hospitalist team and they will work him up. He has been canceled for today and will reschedule once his renal function stabilizes. That may potentially even be as an outpatient. Thank you for allowing us to participate in his care. If there are any questions or concerns please do not hesitate to contact us. Time Spent With Patient Time: Total time managing care of this patient today ____ minutes. Procedures Date of Service Date of Service: 10/17/22 Quality Stroke Does the patient have a stroke diagnosis?: No VTE Prior VTE?: No VTE Risk Level:: Medical - moderate - high VTE Device Contraindication: Treatment Not Indicated VTE Drug Contraindication: N/A - Med Ordered
[2022-10-17] MEDS: Multivitamin TABLET 1 TAB PO (13:23)
[2022-10-17] MEDS: 0.9 % Sodium Chloride Flush 10 ML SYRINGE 5 ML IVFLUSH ×2 (13:23→15:57)
[2022-10-17 14:54] VITALS: BP 173/58; PULSE 65; RESP 17; TEMP 36.6; O2SAT 97
[2022-10-17 15:30] LABS: Glucose, Whole Blood 162 mg/dL (60-115)
[2022-10-17] MEDS: Insulin Lispro 100 UNIT/ML 3 ML VIAL SUBCUT (17:06)
[2022-10-17 19:23] VITALS: PULSE 63; RESP 17; TEMP 36.6; O2SAT 99
[2022-10-17 20:13] LABS: Glucose, Whole Blood 111 mg/dL (60-115)
[2022-10-17 20:15] VITALS: BP 164/74
[2022-10-18] MEDS: cefEPime HCl 2 GM in 0.9 % Sodium Chloride 50 ML IV ×2 (03:01→15:50)
[2022-10-18] MEDS: Acetaminophen 325 MG TABLET 650 MG PO ×2 (03:05→10:19)
[2022-10-18] MEDS: oxyCODONE HCl Immed Release 5 MG TABLET PO (03:05)
[2022-10-18 03:29] VITALS: BP 139/62; PULSE 59; RESP 18; TEMP 36.2; O2SAT 97
[2022-10-18] MEDS: 0.9 % Sodium Chloride 1,000 ML 100 ML IVCONT ×2 (03:39→15:50)
[2022-10-18] MEDS: Omeprazole 20 MG CAPSULE.DR PO (05:12)
[2022-10-18 06:37] LABS: Anion Gap 9 (12-20); Blood Urea Nitrogen 46 mg/dL (9-16); Calcium 8.6 mg/dL (8.4-10.2); Carbon Dioxide 21 mmol/L (22-29); Chloride 115 mmol/L (96-108); Estimated Glomerular Filt Rate 48; Glucose Random 106 mg/dL (60-115); Potassium 4.7 mmol/L (3.3-5.1); Sodium 140 mmol/L (135-145)
[2022-10-18 07:20] VITALS: BP 159/72; PULSE 57; RESP 17; TEMP 36.4; O2SAT 97
[2022-10-18 07:50] LABS: Glucose, Whole Blood 80 mg/dL (60-115)
[2022-10-18 09:24] LABS: Vancomycin Random 15.6 mcg/mL (15-20)
--- NOTE | 2022-10-18 09:30 | HE.PHANOTE ---
Vancomycin Dosing Addendum Patients level came back this morning at 15.6 mg/L. This level is therapeutic given the inidcation of skin infection. Patients renal function has improved, went from 1.71 mg/dL to 1.41 md/dL. Patients renal function has been all over the place therefore I will keep patients dose at 500 mg Q24H for one more dose to see if renal function will change. If function continues to improve the dose should be increased. Will get next level for tomorrow 10/19 @0900 and will reassess.
--- NOTE | 2022-10-18 10:14 | HO.PM.IMPN ---
Subjective Subjective Date of Service: 10/18/22 Interval History: Guadalupe placed, drained 1300mL yesterday now bloody urine no fever foot redness improved SCr improved Review of Systems Review of Systems: Yes all other systems are reviewed and are negative Physical Exam Vital Signs: Vital Signs: Last Vital Signs Temp 97.5 F 10/18/22 07:20 Pulse 57 10/18/22 07:20 Resp 17 10/18/22 07:20 BP 159/72 H 10/18/22 07:20 Pulse Ox 97 10/18/22 07:20 O2 Del Method 10/18/22 07:20 BMI result Body Mass Index 24.0 Const: Other: Temp Pulse Resp BP Pulse Ox O2 Del Method 97.5 F 57 17 159/72 H 97 10/18/22 07:20 10/18/22 07:20 10/18/22 07:20 10/18/22 07:20 10/18/22 07:20 10/18/22 07:20 Gen: in no acute distress HEENT: sclera anicteric, moist mucus membranes Neck: supple Lungs: clear to auscultation bilaterally Heart: regular rate and rhythm, no murmurs Abd: soft, non-tender, non-distended : Guadalupe draining bloody urine Ext: no edema Skin: L great toe swollen with dry distal ulcer, no discharge.? L foot red without fluctuance/purulence.? R 3rd toe blood blister. Neuro: alert and oriented x3, no focal findings Psych: appropriate affect Objective Data Active Medications Acetaminophen (Acetaminophen 325 Mg Tablet) 650 mg PO Q6H PRN PRN Reason: Pain, Mild (Pain Scale 1-3) Last Admin: 10/18/22 03:05 Dose: 650 mg Documented By: SARIKA Atorvastatin Calcium (Atorvastatin Calcium 40 Mg Tablet) 40 mg PO MOTH@1800 [facility] Last Admin: 10/16/22 17:59 Dose: 40 mg Documented By: HORACE Dextrose (Dextrose 50 % 25 Gm/50 Ml Syringe) 25 gm IVPUSH Q15M PRN; Protocol PRN Reason: per Hypoglycemia Standing Ord. Enoxaparin Sodium (Enoxaparin Sodium 40 Mg/0.4 Ml Syringe) 40 mg SUBCUT Q24H [facility] Last Admin: 10/15/22 15:35 Dose: 40 mg Documented By: BULMARO Finasteride (Finasteride 5 Mg Tablet) 5 mg PO DAILY [facility] Glucose (Glucose Gel 15 Gm Gel..Gram.) 15 gm PO Q15M PRN; Protocol PRN Reason: per Hypoglycemia Standing Ord. Cefepime HCl 2 gm/ Sodium (Chloride) 50 mls @ 100 mls/hr IV Q12H [facility] Last Infusion: 10/18/22 03:46 Dose: 0 mls/hr Documented By: SARIKA Sodium Chloride (Ns) 1,000 mls @ 100 mls/hr IVCONT .Q10H [facility] Last Admin: 10/18/22 03:39 Dose: 100 mls/hr Documented By: SARIKA Vancomycin HCl 500 mg/ Sodium (Chloride) 110 mls @ 110 mls/hr IV Q24H [facility] Last Infusion: 10/17/22 12:31 Dose: 0 mls/hr Documented By: THOMAS Insulin Human Lispro (Insulin Lispro 100 Unit/Ml 3 Ml Vial) 0 unit SUBCUT QIDACHS [facility]; Protocol Last Admin: 10/18/22 07:58 Dose: Not Given Documented By: MARINA Non-Admin Reason: No Insulin Coverage Lisinopril (Lisinopril 20 Mg Tablet) 20 mg PO DAILY [facility]; Protocol Last Admin: 10/17/22 08:27 Dose: 20 mg Documented By: THOMAS Multivitamins/Vitamin C (Multivitamin Tablet) 1 tab PO DAILY@1200 [facility] Last Admin: 10/17/22 13:23 Dose: 1 tab Documented By: THOMAS Omeprazole (Omeprazole 20 Mg Boyd.) 20 mg PO DAILY@0630 [facility] Last Admin: 10/18/22 05:12 Dose: 20 mg Documented By: SARIKA Ondansetron HCl (Ondansetron Hcl 4 Mg/2 Ml Vial) 4 mg IVPUSH Q8H PRN PRN Reason: Nausea and Vomiting Pharmacy Consult (Consult Rx Perform Med Rec) 1 each MISCELLANE ONCE PRN PRN Reason: Consult order Pharmacy Consult (Consult Rx Vancomycin Dosing) 1 each MISCELLANE DAILY PRN PRN Reason: Consult order Sodium Chloride (0.9 % Sodium Chloride Flush 3 Ml Syringe) 3 ml IVFLUSH QSHIFT [facility] Last Admin: 10/18/22 00:46 Dose: Not Given Documented By: SARIKA Non-Admin Reason: IV Running Sodium Chloride (0.9 % Sodium Chloride Flush 10 Ml Syringe) 5 ml IVFLUSH TID [facility] Last Admin: 10/17/22 21:53 Dose: Not Given Documented By: SARIKA Non-Admin Reason: IV Running Sodium Polystyrene Sulfonate (Sodium Polystyrene Sulfon/Sorb 15 Gm/60 Ml Oral.Susp) 15 gm PO SA@0900 [facility] Last Admin: 10/14/22 11:20 Dose: Not Given Documented By: LIBBY Non-Admin Reason: Med Not Available Tamsulosin HCl (Tamsulosin Hcl 0.4 Mg Capsule) 0.4 mg PO BEDTIME [facility] Labs 10/16/22 16:21 10/18/22 05:34 Labs: Laboratory Results - last 24 hr 10/17/22 10/17/22 10/17/22 11:09 14:59 19:25 Anion Gap Estim Creat Clear Calc Estimated GFR POC Glucose 80 162 H 111 Random Glucose Calcium Random Vancomycin 10/18/22 10/18/22 10/18/22 05:34 07:24 09:00 Anion Gap 9 L Estim Creat Clear Calc 41.0 Estimated GFR 48 POC Glucose 80 Random Glucose 106 Calcium 8.6 Random Vancomycin 15.6 Microbiology Microbiology Results: Microbiology 10/12/22 16:21 Blood Culture - Final Blood - Venous No growth after 5 days. 10/12/22 16:21 Blood Culture - Final Blood - Venous No growth after 5 days. Assessment and Plan (1) Osteomyelitis: Status: Acute (2) Diabetes: Status: Acute (3) Hypertension: Status: Acute Plan d#9 81yo M with DM2 [A1c 6.8] + neuropathy, PAD, HLD, HTN admitted for osteomyelitis of L great toe # L great toe acute osteomyelitis + cellulitis associated with DM + PAD - d#9 vanco + cefepime. PICC placed 10/16/22. ID consulted, will likely transition to ertapenem upon discharge x 6 wk - BCx 10/10/22 -> contaminant. No growth from BCx from 10/12/22. # ESTEPHANIA - postrenal obstruction due to prostatism though urine studies pending. lisinopril on hold. SCr improved; recheck in AM # prostatism - start finasteride + tamsulosin; Urology consult # hematuria - Urology consult; hold LMWH # hyperK, mild - held lisinopril, resolved # PAD - Vasc Surg consult, will need angiogram but held for now due to ESTEPHANIA - continue statin # DM2 - correction-dose lispro # HTN - hold lisinopril # VTE ppx: SCDs # dispo: anticipate home with VNA In my clinical judgment, the patient requires continued inpatient hospitalization for the following reasons: IV ABX, operative intervention, ESTEPHANIA Time Spent With Patient Time: Total time managing care of this patient today _40___ minutes. Quality Stroke Does the patient have a stroke diagnosis?: No VTE Prior VTE?: No VTE Risk Level:: Medical - moderate - high VTE Device Contraindication: Treatment Not Indicated VTE Drug Contraindication: N/A - Med Ordered
[2022-10-18] MEDS: 0.9 % Sodium Chloride Flush 3 ML SYRINGE IVFLUSH ×2 (10:19→20:02)
[2022-10-18] MEDS: vancomycin HCL 500 MG in 0.9 % Sodium Chloride 100 ML 110 MG IV (10:19)
[2022-10-18] MEDS: Finasteride 5 MG TABLET PO (10:20)
--- NOTE | 2022-10-18 10:32 | PM.PNNEP ---
Subjective Subjective Date of Service: 10/18/22 Interval history: Loza placed, drained 1300mL yesterday now bloody urine no fever foot redness improved SCr improved Physical Exam Vital Signs: Vital Signs: Last Vital Signs Temp 97.5 F 10/18/22 07:20 Pulse 57 10/18/22 07:20 Resp 17 10/18/22 07:20 BP 159/72 H 10/18/22 07:20 Pulse Ox 97 10/18/22 07:20 O2 Del Method 10/18/22 07:20 BMI result Body Mass Index 24.0 Const: Other: Awake alert oriented x3 no acute distress General: cooperative, healthy appearing, comfortable, no acute distress, alert and awake Nutritional Appearance: well nourished Orientation/consciousness: oriented to person, oriented to place, oriented to time and patient oriented x3 Limitations: no limitations HEENT: Head: Yes normal to inspection, Yes normocephalic and Yes atraumatic Ears: hearing grossly normal bilaterally and external ears normal General nose exam: Normal external nose present, no nasal discharge noted and no epistaxis Face and sinus: Yes normal facial exam, No abrasion and No laceration Mouth: Normal oral and palatal mucosa present, no drooling and no muffled voice Teeth and gingiva: dentition normal Eyes: General: appearance normal, both eyes and all related structures Periorbital: periorbital findings normal Eyelids: Yes eyelids normal Conjunctivae: conjunctivae normal Pupils: Equal, round and reactive pupils present EOM: EOMs intact bilaterally Neck: Neck: Yes normal visual inspection, Yes full ROM and Yes no lymphadenopathy Carotids: no bruits Chest: Chest palpation & inspection: normal inspection of the chest Resp: Other: Clear to auscultation bilaterally no rales rhonchi or wheezes Effort & Inspection: normal respiratory effort, able to speak in complete sentences, no audible wheezes, no cough and no respiratory distress Auscultation: clear to auscultation bilaterally, no crackles, no rales, no rhonchi and no wheezes Cardio: Other: No S4; positive S1-S2; no S3 murmurs rubs or gallops Jugular venous distension: no JVD Rate: regular rate Rhythm: regular rhythm Heart sounds: S1 normal heart sound present and S2 normal heart sound present Bruits: no carotid bruits Peripheral pulses: dorsalis pedis present (Bilateral DP signals) GI: Other: Soft nontender nondistended with normoactive bowel sounds Inspection: Yes normal to inspection Palpation (GI): Soft to palpation, not firm, nontender, no guarding and not rigid : General: Yes no CVA tenderness Back/Spine/Pelvis: Back: no CVA tenderness Skin: Other: Warm, dry, no rash General skin exam: no rashes or lesions noted Wounds: no wounds Hair: normal Neuro: General: oriented to person, oriented to place, oriented to time, patient oriented x3 and moves all extremities Cranial nerves: Yes Equal, round and reactive pupils present and No Normal hearing present Cognition (Neuro): normal cognition Motor exam (neuro): 5/5 motor strength present throughout Sensory Exam: Normal double simultaneous stimulation for sensation Coordination: [id number] test normal Extrem: Other: left great tow distal dark area General: Yes normal to inspection, Yes full ROM, Yes capillary refill normal, Yes no clubbing, cyanosis or edema, No clubbing, No cyanosis and Yes edema Objective Data Labs 10/16/22 16:21 10/18/22 05:34 Labs: Laboratory Results - last 24 hr 10/17/22 10/17/22 10/17/22 11:09 14:59 19:25 Sodium Potassium Chloride Carbon Dioxide Anion Gap BUN Creatinine Estim Creat Clear Calc Estimated GFR POC Glucose 80 162 H 111 Random Glucose Calcium Random Vancomycin 10/18/22 10/18/22 10/18/22 05:34 07:24 09:00 Sodium 140 Potassium 4.7 Chloride 115 H Carbon Dioxide 21 L Anion Gap 9 L BUN 46 H Creatinine 1.41 H Estim Creat Clear Calc 41.0 Estimated GFR 48 POC Glucose 80 Random Glucose 106 Calcium 8.6 Random Vancomycin 15.6 Microbiology Microbiology Results: Microbiology 10/12/22 16:21 Blood - Venous Blood Culture - Final No growth after 5 days. 10/12/22 16:21 Blood - Venous Blood Culture - Final No growth after 5 days. 10/10/22 11:26 Blood - Venous Blood Culture - Final Staphylococcus epidermidis Coag negative Staphylococcus 10/10/22 11:26 Blood - Venous Blood Culture - Final Staphylococcus epidermidis Procedures Date of Service Date of Service: 10/18/22 Assessment & Plan Assessment and plan (1) Osteomyelitis: Status: Acute (2) Diabetes: Status: Acute (3) Hypertension: Status: Acute (4) ESTEPHANIA (acute kidney injury): Status: Acute Plan ESTEPHANIA Most likely due to obstruction Cr improving with loza Possible superimpsoed vanco induce tubular injury ? Hypoperfusion asiya Pepper Suggest Loza Hold Lisinopril Renally dose Vanco and other meds Hold Angio until creatinine returns to baseline Keep I >O Urology evaluation Time Spent With Patient Time: Total time managing care of this patient today ____ minutes. Progress Note: Quality Stroke Does the patient have a stroke diagnosis?: No
[2022-10-18 10:45] LABS: Appearance Urine Hazy; Color Urine RED; Glucose Urine UA 100 mg/dL (Negative); Leukocyte Esterase Urine Small (1+) (Negative); Nitrite Urine Negative (Negative); PH 5.5 (5.0-9.0); UMIC TRIGGER UA YES; Urine Blood Large (3+) (Negative); Urine Ketones Negative (Negative); Urine Protein 100 (2+) mg/dL (Neg-Trace)
[2022-10-18 10:56] LABS: Bacteria Urine None Seen (None Seen); RBC Urine >20 /HPF (0-2); WBC Urine 21-50 /HPF (0-5)
[2022-10-18 11:09] LABS: Creatinine Urine 27.13 mg/dL
[2022-10-18 11:33] LABS: Glucose, Whole Blood 129 mg/dL (60-115)
[2022-10-18] MEDS: Multivitamin TABLET 1 TAB PO (12:21)
[2022-10-18] MEDS: 0.9 % Sodium Chloride Flush 10 ML SYRINGE 5 ML IVFLUSH ×2 (12:21→15:50)
--- NOTE | 2022-10-18 12:58 | HO.VASCPN ---
Subjective Subjective Date of Service: 10/18/22 Patient reports: no new complaints and feels better Interval history: 81-year-old gentleman presents for follow-up regarding nonhealing left foot ulcer. He does have a history of smoking and diabetes. He was actually scheduled for endovascular intervention on Sunday but due to his kidney function he had to be canceled. He appears to be doing much better. No interval events since last visit. Physical Exam Vital Signs: Vital Signs: Last Vital Signs Temp 97.5 F 10/18/22 07:20 Pulse 57 10/18/22 07:20 Resp 17 10/18/22 07:20 BP 159/72 H 10/18/22 07:20 Pulse Ox 97 10/18/22 07:20 O2 Del Method 10/18/22 07:20 BMI result Body Mass Index 24.0 Const: General: cooperative, healthy appearing and no acute distress Orientation/consciousness: oriented to person, oriented to place and oriented to time HEENT: Head: Yes normal to inspection Neck: Carotids: no bruits Chest: Chest palpation & inspection: normal inspection of the chest Resp: Effort & Inspection: normal respiratory effort and able to speak in complete sentences Auscultation: clear to auscultation bilaterally Cardio: Rate: regular rate Heart sounds: S1 normal heart sound present and S2 normal heart sound present GI: Inspection: Yes normal to inspection Skin: Other: Left foot ulcer Wounds: wounds noted Neuro: General: oriented to person, oriented to place, oriented to time and CN's II-XI intact bilaterally Extrem: General: Yes normal to inspection, Yes full ROM and Yes no clubbing, cyanosis or edema Psych: Appearance: grossly normal and well kempt Speech and movement: Normal speech and movement present Affect: normal affect Progress Note: A&P Assessment and plan (1) PAD (peripheral artery disease): Status: Acute Assessment and Plan: Patient notes left leg ulcer. His kidney function has improved. I have discussed the case with primary care team which is in agreement to move forward with the procedure I have discussed the pathophysiology of peripheral vascular disease with the patient. I have also discussed risk factor modification. I have reviewed the patient's arterial testing which reveals left popliteal disease. the patient would benefit from a left leg endovascular peripheral angiogram with possible angioplasty, stent, and/or atherectomy. This has been discussed in detail with the patient along with risks, benefits, and complications. This includes but is not limited to bleeding, infection, heart attack, need for emergent surgical repair, limb ischemia, blood vessel damage, bleeding, puncture, kidney injury, bruising, allergic reaction, and skin reaction. The patient demonstrates a clear understanding. We will schedule for the next appropriate time. Thank you for allowing us to assist in this patient's care. Time Spent With Patient Time: Total time managing care of this patient today ____ minutes. Procedures Date of Service Date of Service: 10/18/22 Quality Stroke Does the patient have a stroke diagnosis?: No VTE Prior VTE?: No VTE Risk Level:: Medical - moderate - high VTE Device Contraindication: Treatment Not Indicated VTE Drug Contraindication: N/A - Med Ordered
[2022-10-18 13:00] VITALS: BP 168/75; PULSE 60; RESP 17; TEMP 37.1; O2SAT 99
[2022-10-18 13:05] LABS: EOS Counted 4 CELLS; EOS QC POS YES; EOS Stain Quality OK YES; WBC, Counted 100 CELLS
[2022-10-18 16:32] LABS: Glucose, Whole Blood 121 mg/dL (60-115)
[2022-10-18 16:42] VITALS: BP 175/77; PULSE 59; RESP 16; TEMP 36.2; O2SAT 100
[2022-10-18] MEDS: Alteplase Cath Clear 2 MG VIAL INTRACATH (18:14)
[2022-10-18 19:28] VITALS: BP 178/78; PULSE 68; RESP 16; TEMP 36.4; O2SAT 96
[2022-10-18 19:47] LABS: Glucose, Whole Blood 167 mg/dL (60-115)
[2022-10-18] MEDS: Tamsulosin HCL 0.4 MG CAPSULE PO (20:01)
[2022-10-18] MEDS: Insulin Lispro 100 UNIT/ML 3 ML VIAL SUBCUT (20:01)
[2022-10-19] VITALS (12 sets, daily range): BP systolic 124–172; BP diastolic 39–77; PULSE 54–68; RESP 16–18; TEMP 36.2–36.8; O2SAT 96–100
[2022-10-19] MEDS: 0.9 % Sodium Chloride 1,000 ML 100 ML IVCONT ×2 (01:04→21:17)
[2022-10-19] MEDS: cefEPime HCl 2 GM in 0.9 % Sodium Chloride 50 ML IV ×2 (04:17→16:57)
[2022-10-19] MEDS: Omeprazole 20 MG CAPSULE.DR PO (05:35)
[2022-10-19 06:58] LABS: Anion Gap 13 (12-20); Blood Urea Nitrogen 35 mg/dL (9-16); Calcium 8.6 mg/dL (8.4-10.2); Carbon Dioxide 18 mmol/L (22-29); Chloride 113 mmol/L (96-108); Creatinine Clr Calc Pharmacy 48.6; Estimated Glomerular Filt Rate 59; Glucose Random 95 mg/dL (60-115); Potassium 4.8 mmol/L (3.3-5.1); Sodium 139 mmol/L (135-145)
[2022-10-19 07:48] LABS: Glucose, Whole Blood 96 mg/dL (60-115)
[2022-10-19] MEDS: Finasteride 5 MG TABLET PO (07:50)
[2022-10-19] MEDS: 0.9 % Sodium Chloride Flush 3 ML SYRINGE IVFLUSH ×3 (07:53→18:39)
[2022-10-19] MEDS: 0.9 % Sodium Chloride Flush 10 ML SYRINGE 5 ML IVFLUSH (07:54)
--- NOTE | 2022-10-19 09:33 | HE.PHANOTE ---
Vancomycin Dosing Addendum Patients level came back at 13 mg/L. Increased dose from 500 mg to 1000 mg Q24H to increase AUC. Patients renal function has improved this morning from 1.41 mg/ dL to 1.19 mg/ dL. Predicted AUC 481 mg/L/hr. Next draw is tomorrow 10/20 @0900 to ensure safety vs efficacy.
--- NOTE | 2022-10-19 09:36 | P.PNIM_ITS ---
Subjective Subjective Date of Service: 10/19/22 Interval History: no fever foot pain controlled SCr normalized NPO for OR Review of Systems Review of Systems: Yes all other systems are reviewed and are negative Physical Exam Vital Signs: Vital Signs: Last Vital Signs Temp 98.1 F 10/19/22 03:48 Pulse 63 10/19/22 03:48 Resp 18 10/19/22 03:48 BP 158/68 H 10/19/22 03:48 Pulse Ox 97 10/19/22 03:48 O2 Del Method 10/19/22 03:48 BMI result Body Mass Index 24.0 Gen: in no acute distress HEENT: sclera anicteric, moist mucus membranes Neck: supple Lungs: clear to auscultation bilaterally Heart: regular rate and rhythm, no murmurs Abd: soft, non-tender, non-distended : Guadalupe draining bloody urine Ext: no edema. LUE PICC C/D/I Skin: L great toe swollen with dry distal ulcer, no discharge.? L foot red without fluctuance/purulence.? R 3rd toe blood blister. Neuro: alert and oriented x3, no focal findings Psych: appropriate affect Objective Data Active Medications Acetaminophen (Acetaminophen 325 Mg Tablet) 650 mg PO Q6H PRN PRN Reason: Pain, Mild (Pain Scale 1-3) Last Admin: 10/18/22 10:19 Dose: 650 mg Documented By: MARINA Atorvastatin Calcium (Atorvastatin Calcium 40 Mg Tablet) 40 mg PO MOTH@1800 [facility] Last Admin: 10/16/22 17:59 Dose: 40 mg Documented By: HORACE Dextrose (Dextrose 50 % 25 Gm/50 Ml Syringe) 25 gm IVPUSH Q15M PRN; Protocol PRN Reason: per Hypoglycemia Standing Ord. Enoxaparin Sodium (Enoxaparin Sodium 40 Mg/0.4 Ml Syringe) 40 mg SUBCUT Q24H [facility] Last Admin: 10/15/22 15:35 Dose: 40 mg Documented By: BULMARO Finasteride (Finasteride 5 Mg Tablet) 5 mg PO DAILY [facility] Last Admin: 10/19/22 07:50 Dose: 5 mg Documented By: CYNDIE Glucose (Glucose Gel 15 Gm Gel..Gram.) 15 gm PO Q15M PRN; Protocol PRN Reason: per Hypoglycemia Standing Ord. Cefepime HCl 2 gm/ Sodium (Chloride) 50 mls @ 100 mls/hr IV Q12H [facility] Last Infusion: 10/19/22 05:39 Dose: 0 mls/hr Documented By: TABITHA Sodium Chloride (Ns) 1,000 mls @ 100 mls/hr IVCONT .Q10H [facility] Last Admin: 10/19/22 01:04 Dose: 100 mls/hr Documented By: TABITHA Sodium Chloride (Ns) 1,000 mls @ 100 mls/hr IVCONT .Q10H [facility] Vancomycin HCl 1,000 mg/ (Sodium Chloride) 270 mls @ 270 mls/hr IV Q24H [facility] Insulin Human Lispro (Insulin Lispro 100 Unit/Ml 3 Ml Vial) 0 unit SUBCUT QIDACHS [facility]; Protocol Last Admin: 10/19/22 07:56 Dose: Not Given Documented By: CYNDIE Non-Admin Reason: No Insulin Coverage Lisinopril (Lisinopril 20 Mg Tablet) 20 mg PO DAILY [facility]; Protocol Last Admin: 10/17/22 08:27 Dose: 20 mg Documented By: THOMAS Multivitamins/Vitamin C (Multivitamin Tablet) 1 tab PO DAILY@1200 [facility] Last Admin: 10/18/22 12:21 Dose: 1 tab Documented By: MARINA Omeprazole (Omeprazole 20 Mg Capsule.) 20 mg PO DAILY@0630 [facility] Last Admin: 10/19/22 05:35 Dose: 20 mg Documented By: TABITHA Ondansetron HCl (Ondansetron Hcl 4 Mg/2 Ml Vial) 4 mg IVPUSH Q8H PRN PRN Reason: Nausea and Vomiting Pharmacy Consult (Consult Rx Perform Med Rec) 1 each MISCELLANE ONCE PRN PRN Reason: Consult order Pharmacy Consult (Consult Rx Vancomycin Dosing) 1 each MISCELLANE DAILY PRN PRN Reason: Consult order Sodium Chloride (0.9 % Sodium Chloride Flush 3 Ml Syringe) 3 ml IVFLUSH QSHIFT [facility] Last Admin: 10/19/22 07:53 Dose: 3 ml Documented By: CYNDIE Sodium Chloride (0.9 % Sodium Chloride Flush 10 Ml Syringe) 5 ml IVFLUSH TID [facility] Last Admin: 10/19/22 07:54 Dose: 5 ml Documented By: CYNDIE Sodium Polystyrene Sulfonate (Sodium Polystyrene Sulfon/Sorb 15 Gm/60 Ml Oral.Susp) 15 gm PO SA@0900 [facility] Last Admin: 10/14/22 11:20 Dose: Not Given Documented By: LIBBY Non-Admin Reason: Med Not Available Tamsulosin HCl (Tamsulosin Hcl 0.4 Mg Capsule) 0.4 mg PO BEDTIME [facility] Last Admin: 10/18/22 20:01 Dose: 0.4 mg Documented By: TABITHA Labs 10/16/22 16:21 10/19/22 05:56 Labs: Laboratory Results - last 24 hr 10/18/22 10/18/22 10/18/22 10:30 10:30 10:30 Anion Gap Estim Creat Clear Calc Estimated GFR POC Glucose Random Glucose Calcium Urine Color RED Urine Appearance Hazy Urine pH 5.5 Ur Specific [place] 1.020 Urine Protein 100 (2+) H Urine Glucose (UA) 100 H Urine Ketones Negative Urine Blood Large (3+) H Urine Nitrite Negative Ur Leukocyte Esterase Small (1+) H Urine RBC >20 H Urine WBC 21-50 H Ur Squamous Epith Cells 6-10 Urine Bacteria None Seen Hyaline Casts 6-10 Urine Eosinophils % 4.0 Ur Random Sodium 133.0 Urine Creatinine 27.13 Random Vancomycin 10/18/22 10/18/22 10/18/22 11:19 16:10 19:29 Anion Gap Estim Creat Clear Calc Estimated GFR POC Glucose 129 H 121 H 167 H Random Glucose Calcium Urine Color Urine Appearance Urine pH Ur Specific [place] Urine Protein Urine Glucose (UA) Urine Ketones Urine Blood Urine Nitrite Ur Leukocyte Esterase Urine RBC Urine WBC Ur Squamous Epith Cells Urine Bacteria Hyaline Casts Urine Eosinophils % Ur Random Sodium Urine Creatinine Random Vancomycin 10/19/22 10/19/22 10/19/22 05:56 07:19 08:56 Anion Gap 13 Estim Creat Clear Calc 48.6 Estimated GFR 59 POC Glucose 96 Random Glucose 95 Calcium 8.6 Urine Color Urine Appearance Urine pH Ur Specific [place] Urine Protein Urine Glucose (UA) Urine Ketones Urine Blood Urine Nitrite Ur Leukocyte Esterase Urine RBC Urine WBC Ur Squamous Epith Cells Urine Bacteria Hyaline Casts Urine Eosinophils % Ur Random Sodium Urine Creatinine Random Vancomycin 13.0 L Impressions Chest X-Ray 10/18/22 14:05 IMPRESSION: * The tip of the left arm peripherally inserted catheter is at the level of the distal superior vena cava. * Minimal atelectasis at the left lung base. Assessment and Plan (1) Osteomyelitis: Status: Acute (2) Diabetes: Status: Acute (3) Hypertension: Status: Acute Plan d#10 81yo M with DM2 [A1c 6.8] + neuropathy, PAD, HLD, HTN admitted for osteomyelitis of L great toe # L great toe acute osteomyelitis + cellulitis associated with DM + PAD - d#10 vanco + cefepime. PICC placed 10/16/22. ID consulted, will likely tra nsition to ertapenem upon discharge x 6 wk but need to look into coverage- per CM ertapenem may not be covered? - BCx 10/10/22 -> contaminant. No growth from BCx from 10/12/22. # ESTEPHANIA - FENa 6%, likely postrenal obstruction due to prostatism; ESTEPHANIA has resolved. lisinopril on hold. Nephrology following # prostatism - started finasteride + tamsulosin; Urology consult pending # hematuria - Urology consult pending; hold LMWH # hyperK, mild - held lisinopril, resolved # PAD - Vasc Surg consulted, to OR for angiogram/revascularization today - continue statin - DAPT when hematuria resolves # DM2 - correction-dose lispro # HTN - hold lisinopril # VTE ppx: SCDs # dispo: anticipate home with VNA In my clinical judgment, the patient requires continued inpatient hospitalization for the following reasons: IV ABX, operative intervention Time Spent With Patient Time: Total time managing care of this patient today _40___ minutes. Quality Stroke Does the patient have a stroke diagnosis?: No VTE Prior VTE?: No VTE Risk Level:: Medical - moderate - high VTE Device Contraindication: Treatment Not Indicated VTE Drug Contraindication: N/A - Med Ordered
[2022-10-19 10:46] LABS: Glucose, Whole Blood 105 mg/dL (60-115)
--- NOTE | 2022-10-19 13:51 | PM.PNNEP ---
Subjective Subjective Date of Service: 10/19/22 Interval history: Events noed Hematuria s/p loza Physical Exam Vital Signs: Vital Signs: Last Vital Signs Temp 98.1 F 10/19/22 10:53 Pulse 61 10/19/22 10:53 Resp 18 10/19/22 10:53 BP 168/66 H 10/19/22 10:53 Pulse Ox 98 10/19/22 10:53 O2 Del Method 10/19/22 10:53 BMI result Body Mass Index 24.0 Const: Other: Awake alert oriented x3 no acute distress Nutritional Appearance: well nourished Orientation/consciousness: patient oriented x3 Limitations: no limitations HEENT: Ears: hearing grossly normal bilaterally and external ears normal General nose exam: Normal external nose present, no nasal discharge noted and no epistaxis Face and sinus: Yes normal facial exam, No abrasion and No laceration Eyes: Conjunctivae: conjunctivae normal Neck: Neck: Yes no lymphadenopathy Resp: Auscultation: no rales Cardio: Heart sounds: S1 normal heart sound present and S2 normal heart sound present GI: Palpation (GI): not firm and nontender Neuro: General: patient oriented x3 Extrem: General: No cyanosis Objective Data Labs 10/16/22 16:21 10/19/22 05:56 Labs: Laboratory Results - last 24 hr 10/18/22 10/18/22 10/19/22 16:10 19:29 05:56 Sodium 139 Potassium 4.8 Chloride 113 H Carbon Dioxide 18 L Anion Gap 13 BUN 35 H Creatinine 1.19 Estim Creat Clear Calc 48.6 Estimated GFR 59 POC Glucose 121 H 167 H Random Glucose 95 Calcium 8.6 Random Vancomycin 10/19/22 10/19/22 10/19/22 07:19 08:56 10:41 Sodium Potassium Chloride Carbon Dioxide Anion Gap BUN Creatinine Estim Creat Clear Calc Estimated GFR POC Glucose 96 105 Random Glucose Calcium Random Vancomycin 13.0 L Microbiology Microbiology Results: Microbiology 10/12/22 16:21 Blood - Venous Blood Culture - Final No growth after 5 days. 10/12/22 16:21 Blood - Venous Blood Culture - Final No growth after 5 days. 10/10/22 11:26 Blood - Venous Blood Culture - Final Staphylococcus epidermidis Coag negative Staphylococcus 10/10/22 11:26 Blood - Venous Blood Culture - Final Staphylococcus epidermidis Procedures Date of Service Date of Service: 10/19/22 Assessment & Plan Assessment and plan (1) Osteomyelitis: Status: Acute (2) Diabetes: Status: Acute (3) Hypertension: Status: Acute (4) ESTEPHANIA (acute kidney injury): Status: Acute Plan ESTEPHANIA Most likely due to obstruction Cr improving with loza Suggest Loza Hold Lisinopril Renally dose Vanco and other meds Ok with proceed with angio if needed Keep I >O Urology follow up Time Spent With Patient Time: Total time managing care of this patient today ____ minutes. Progress Note: Quality Stroke Does the patient have a stroke diagnosis?: No
--- NOTE | 2022-10-19 14:11 | P.OP_ITS ---
Operative Note Operative Note Date of Service: 10/19/22 Narrative: Angiogram report from [facility] Preoperative diagnosis: Atherosclerosis of left lower extremity with nonhealing ulcer Postoperative diagnosis: Same Procedure: 1. Ultrasound-guided right common femoral access 2. Aortogram with left lower extremity runoff 3. Left leg atherectomy with plasty Surgeon:Ez Gallegos M.D., FACS, RPVI Facility Practice Specialist:None Anesthesia: Local with moderate conscious sedation. Total intraservice moderate sedation time was 73 minutes. I monitored the patient's level of consciousness and physiologic status continuously throughout the procedure. Specimens:none Drains:none Estimated blood loss: Less than 10 ml Implant: Medtronic Impact DCB 6 x 80 Indications: Very pleasant 81-year-old diabetic gentleman presents with nonhealing left great toe ulcer. Upon workup and ultrasound he was noted to have a left popliteal stenosis. He now presents for endovascular intervention The patient has signed the informed consent after reviewing risks, complications, benefits, and alternatives previously discussed with the patient. The patient was given the opportunity to ask any additional questions or voice any concerns. All questions were answered to the patient's satisfaction. Procedure in detail: Patient was brought to the angiography suite prior to which a time-out was called for patient identification and site verification. Bilateral groins were prepped and draped in the standard surgical fashion. Under ultrasound guidance right common femoral was punctured with micro puncture needle and wire. Subsequently a precision 4 Maltese sheath was then placed. B Attractason wire was advanced to the level of the aorta. 4 Maltese Flush catheter was brought up and parked at the level of the renal arteries. Aortogram was then undertaken. Catheter was brought down to the level of the iliac bifurcation. There was significant tortuosity and we actually had to use a trail Blazer catheter and an 035 advantage to get in to the iliacs. Iliacs were subsequently imaged. Catheter was then brought in up and over to the left side SFA. Runoff study was then undertaken. It was recognized that he had a significant popliteal lesion. We administered 5000 units of systemic heparin. After 5 minutes of circulation time up and over 6 Maltese sheath was then placed. We advanced a Glidewire Advantage through this lesion. Freedom Blazer catheter was used to identify a true lumen. This was instilled with contrast. Once this was done we then advanced an atherectomy device over a spider wire. Multiple unidirectional passes were undertaken. We debulked the plaque. Once this was accomplished we still had residual stenosis we try to advance a 6 x 80 DCB. We were unable to do so and we had to 1st bring in a 4 x 40 regular balloon to obtain at good lumen. Once this was passed we then used this with multiple insufflations to open up this area. Finally we brought in a 6 x 80 Medtronic Impact DCB. This was brought into position in under 3 minutes and insufflated for a total of 3 minutes in duration once this was accomplished excellent result was achieved. Catheter wire sheath was brought back to the ipsilateral side. StarClose closure device was deployed. Patient tolerated the procedure well. Returned to recovery with stable vitals. Interpretation of films: 1. Ultrasound demonstrates appropriate femoral puncture. Image of which was saved. 2. Aortogram demonstrates appropriate caliber aorta. Minimal disease. Appropriate take-off of the renals. 3. Iliac images demonstrate significant tortuosity no flow-limiting stenosis 4. Left Leg Common femoral artery: No disease Profundus Femoris: No significant disease Superficial femoral artery: No disease Popliteal artery (p1,p2,p3): High-grade stenosis at the P2 segment Anterior tibial artery: Occludes after the proximal 5th Peroneal artery: Flow all the way to the ankle Posterior tibial artery: Flow all the way to the ankle Dorsalis pedis/plantar arch: Incomplete Conclusion: 1. Successful atherectomy and plasty of left popliteal artery 2. Anticoagulation status: Will require 6 months of aspirin and Plavix This note is constructed using voice recognition software. While every effort has been made to ensure accuracy, commercial carpet installer errors may have been included. Thank you for allowing me to participate in the care of your patient. Yours sincerely, Ez Gallegos MD, FACS, R.P.V.I.
[2022-10-19] MEDS: Aspirin 325 MG TABLET 650 MG PO (14:17)
[2022-10-19] MEDS: Clopidogrel Bisulfate 300 MG TABLET PO (14:17)
[2022-10-19] MEDS: oxyCODONE HCl Immed Release 5 MG TABLET PO (14:18)
--- NOTE | 2022-10-19 15:10 | MHC.CM.PN ---
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 POSSIBLE STR FOR IV ABX
[2022-10-19 16:22] LABS: Glucose, Whole Blood 147 mg/dL (60-115)
--- NOTE | 2022-10-19 18:01 | HE.PHANOTE ---
RE: peace Pt was in a procedure and 1100 dose not given, Iris called to have those dose re-timed for tonight. Dose put in for 1800; changing next level draw to be tomorrow 10/20 @1600
[2022-10-19] MEDS: vancomycin HCL 1,000 MG in 0.9 % Sodium Chloride 250 ML 270 MG IV (18:28)
[2022-10-19] MEDS: Atorvastatin Calcium 40 MG TABLET PO (18:28)
[2022-10-19 20:41] LABS: Glucose, Whole Blood 168 mg/dL (60-115)
[2022-10-19] MEDS: Insulin Lispro 100 UNIT/ML 3 ML VIAL SUBCUT (21:16)
[2022-10-19] MEDS: Tamsulosin HCL 0.4 MG CAPSULE PO (21:16)
[2022-10-20] MEDS: oxyCODONE HCl Immed Release 5 MG TABLET PO ×4 (02:02→22:38)
[2022-10-20] MEDS: cefEPime HCl 2 GM in 0.9 % Sodium Chloride 50 ML IV ×2 (02:23→14:57)
[2022-10-20 03:24] VITALS: BP 158/68; PULSE 68; RESP 18; TEMP 36.8; O2SAT 96
[2022-10-20] MEDS: Omeprazole 20 MG CAPSULE.DR PO (05:54)
[2022-10-20] MEDS: 0.9 % Sodium Chloride 1,000 ML 100 ML IVCONT ×2 (05:55→14:57)
[2022-10-20 07:00] LABS: Hematocrit 30.9 % (42.0-52.0); Hemoglobin 10.4 g/dl (14.0-18.0); Mean Corpuscular HGB Conc 33.7 g/dl (31.0-36.0); Mean Corpuscular Hemoglobin 31.9 pg (27.0-33.0); Mean Corpuscular Volume 94.8 fL (80.0-98.0); Mean Platelet Volume 11.5 fL (9.4-12.4); Platelet Count 224 X10*3/uL (160-400); Red Blood Count 3.26 X10*6/uL (4.60-5.80); Red Cell Distribution Width 11.9 % (11.0-16.0); White Blood Count 9.3 X10*3/uL (4.8-10.8)
[2022-10-20 07:08] LABS: Anion Gap 13 (12-20); Blood Urea Nitrogen 31 mg/dL (9-16); Calcium 8.1 mg/dL (8.4-10.2); Carbon Dioxide 18 mmol/L (22-29); Chloride 114 mmol/L (96-108); Creatinine Clr Calc Pharmacy 44.9; Estimated Glomerular Filt Rate 54; Glucose Random 96 mg/dL (60-115); Potassium 4.7 mmol/L (3.3-5.1); Sodium 140 mmol/L (135-145)
[2022-10-20] MEDS: Finasteride 5 MG TABLET PO (07:19)
[2022-10-20 08:00] VITALS: BP 144/68; PULSE 72; RESP 18; TEMP 36.6; O2SAT 98
[2022-10-20 08:05] LABS: Glucose, Whole Blood 93 mg/dL (60-115)
--- NOTE | 2022-10-20 09:02 | P.PNVS_ITS ---
Subjective Subjective Date of Service: 10/20/22 Patient reports: no new complaints and feels better Interval history: Patient is postop day 1 status post left lower extremity endovascular intervention. He had atherectomy and plasty of the left popliteal artery. R unoff appears to be doing relatively well. Appears to be doing well today. In general in good spirits. Eager to be discharged, but is concerned about the Guadalupe catheter. Renal function appears to be stable Physical Exam Vital Signs: Vital Signs: Last Vital Signs Temp 97.9 F 10/20/22 08:00 Pulse 72 10/20/22 08:00 Resp 18 10/20/22 08:00 BP 144/68 H 10/20/22 08:00 Pulse Ox 98 10/20/22 08:00 O2 Del Method 10/20/22 08:00 BMI result Body Mass Index 24.0 Const: General: cooperative, healthy appearing and no acute distress Orientation/consciousness: oriented to person, oriented to place and oriented to time HEENT: Head: Yes normal to inspection Neck: Carotids: no bruits Chest: Chest palpation & inspection: normal inspection of the chest Resp: Effort & Inspection: normal respiratory effort and able to speak in complete sentences Auscultation: clear to auscultation bilaterally Cardio: Rate: regular rate Heart sounds: S1 normal heart sound present and S2 normal heart sound present Peripheral pulses: dorsalis pedis present (Bilateral DP signals) GI: Inspection: Yes normal to inspection Skin: Other: Left great toe dry eschar General skin exam: no rashes or lesions noted Wounds: no wounds Neuro: General: oriented to person, oriented to place, oriented to time and CN's II-XI intact bilaterally Extrem: General: Yes normal to inspection, Yes full ROM and Yes no clubbing, cyanosis or edema Psych: Appearance: grossly normal and well kempt Speech and movement: Normal speech and movement present Affect: normal affect Progress Note: A&P Assessment and plan (1) PAD (peripheral artery disease): Status: Acute Assessment and Plan: In short patient is doing well status post endovascular intervention. In terms of the left great toe would recommend dry protective dressings as it is basically a dry eschar. In addition he is stable from my perspective for discharge. Upon discharge she will need to be on aspirin 81 mg daily in addition to Plavix 75 mg daily. He can follow up with me as an outpatient. Thank you for allowing us to assist in his care. Time Spent With Patient Time: Total time managing care of this patient today ____ minutes. Procedures Date of Service Date of Service: 10/20/22 Quality Stroke Does the patient have a stroke diagnosis?: No VTE Prior VTE?: No VTE Risk Level:: Medical - moderate - high VTE Device Contraindication: Treatment Not Indicated VTE Drug Contraindication: N/A - Med Ordered
[2022-10-20] MEDS: Clopidogrel Bisulfate 75 MG TABLET PO (09:55)
[2022-10-20] MEDS: Aspirin 81 MG TAB.CHEW PO (09:56)
--- NOTE | 2022-10-20 11:09 | HO.PM.IMPN ---
Subjective Subjective Date of Service: 10/20/22 Interval History: no fever foot pain controlled SCr normalized Review of Systems Review of Systems: Yes all other systems are reviewed and are negative Physical Exam Vital Signs: Vital Signs: Last Vital Signs Temp 97.9 F 10/20/22 08:00 Pulse 72 10/20/22 08:00 Resp 18 10/20/22 08:00 BP 144/68 H 10/20/22 08:00 Pulse Ox 98 10/20/22 08:00 O2 Del Method 10/20/22 08:00 BMI result Body Mass Index 24.0 Objective Data Active Medications Acetaminophen (Acetaminophen 325 Mg Tablet) 650 mg PO Q6H PRN PRN Reason: Pain, Mild (Pain Scale 1-3) Last Admin: 10/18/22 10:19 Dose: 650 mg Documented By: MARINA Aspirin (Aspirin 81 Mg Tab.Chew) 81 mg PO DAILY REPLACED BY [facility] Last Admin: 10/20/22 09:56 Dose: 81 mg Documented By: CAESAR Atorvastatin Calcium (Atorvastatin Calcium 40 Mg Tablet) 40 mg PO MOTH@1800 REPLACED BY [facility] Last Admin: 10/19/22 18:28 Dose: 40 mg Documented By: CYNDIE Clopidogrel Bisulfate (Clopidogrel Bisulfate 75 Mg Tablet) 75 mg PO DAILY REPLACED BY [facility] Last Admin: 10/20/22 09:55 Dose: 75 mg Documented By: CAESAR Dextrose (Dextrose 50 % 25 Gm/50 Ml Syringe) 25 gm IVPUSH Q15M PRN; Protocol PRN Reason: per Hypoglycemia Standing Ord. Enoxaparin Sodium (Enoxaparin Sodium 40 Mg/0.4 Ml Syringe) 40 mg SUBCUT Q24H REPLACED BY [facility] Last Admin: 10/15/22 15:35 Dose: 40 mg Documented By: BULMARO Finasteride (Finasteride 5 Mg Tablet) 5 mg PO DAILY REPLACED BY [facility] Last Admin: 10/20/22 07:19 Dose: 5 mg Documented By: ZEN Glucose (Glucose Gel 15 Gm Gel..Gram.) 15 gm PO Q15M PRN; Protocol PRN Reason: per Hypoglycemia Standing Ord. Cefepime HCl 2 gm/ Sodium (Chloride) 50 mls @ 100 mls/hr IV Q12H REPLACED BY [facility] Last Infusion: 10/20/22 02:56 Dose: 0 mls/hr Documented By: CASTILTerra Sodium Chloride (Ns) 1,000 mls @ 100 mls/hr IVCONT .Q10H REPLACED BY [facility] Last Admin: 10/20/22 05:55 Dose: 100 mls/hr Documented By: TAWNYA Sodium Chloride (Ns) 1,000 mls @ 100 mls/hr IVCONT .Q10H REPLACED BY [facility] Last Admin: 10/20/22 04:10 Dose: Not Given Documented By: TAWNYA Non-Admin Reason: IV Running Vancomycin HCl 1,000 mg/ (Sodium Chloride) 270 mls @ 270 mls/hr IV Q24H REPLACED BY [facility] Last Infusion: 10/19/22 19:57 Dose: 0 mls/hr Documented By: TAWNYA Insulin Human Lispro (Insulin Lispro 100 Unit/Ml 3 Ml Vial) 0 unit SUBCUT QIDACHS REPLACED BY [facility]; Protocol Last Admin: 10/20/22 09:51 Dose: Not Given Documented By: CAESAR Non-Admin Reason: No Insulin Coverage Lisinopril (Lisinopril 20 Mg Tablet) 20 mg PO DAILY REPLACED BY [facility]; Protocol Last Admin: 10/17/22 08:27 Dose: 20 mg Documented By: THOMAS Morphine Sulfate (Morphine Sulfate 4 Mg/Ml Cartridge) 4 mg IVPUSH Q2H PRN; Protocol PRN Reason: Pain, Severe (Pain Scale 7-10) Multivitamins/Vitamin C (Multivitamin Tablet) 1 tab PO DAILY@1200 REPLACED BY [facility] Last Admin: 10/19/22 13:10 Dose: Not Given Documented By: CYNDIE Non-Admin Reason: Pt in [place] Omeprazole (Omeprazole 20 Mg Capsule.) 20 mg PO DAILY@0630 REPLACED BY [facility] Last Admin: 10/20/22 05:54 Dose: 20 mg Documented By: TAWNYA Ondansetron HCl (Ondansetron Hcl 4 Mg/2 Ml Vial) 4 mg IVPUSH Q8H PRN PRN Reason: Nausea and Vomiting Oxycodone HCl (Oxycodone Hcl Immed Release 5 Mg Tablet) 5 mg PO Q4H PRN PRN Reason: Pain, Moderate (Pain Scale 4-6 Last Admin: 10/20/22 07:19 Dose: 5 mg Documented By: ZEN Pharmacy Consult (Consult Rx Perform Med Rec) 1 each MISCELLANE ONCE PRN PRN Reason: Consult order Pharmacy Consult (Consult Rx Vancomycin Dosing) 1 each MISCELLANE DAILY PRN PRN Reason: Consult order Sodium Chloride (0.9 % Sodium Chloride Flush 3 Ml Syringe) 3 ml IVFLUSH QSHIFT REPLACED BY [facility] Last Admin: 10/20/22 07:20 Dose: Not Given Documented By: ZEN Non-Admin Reason: IV Running Sodium Chloride (0.9 % Sodium Chloride Flush 10 Ml Syringe) 5 ml IVFLUSH TID REPLACED BY [facility] Last Admin: 10/20/22 09:59 Dose: Not Given Documented By: CAESAR Non-Admin Reason: IV Running Sodium Polystyrene Sulfonate (Sodium Polystyrene Sulfon/Sorb 15 Gm/60 Ml Oral.Susp) 15 gm PO SA@0900 REPLACED BY [facility] Last Admin: 10/14/22 11:20 Dose: Not Given Documented By: LIBBY Non-Admin Reason: Med Not Available Tamsulosin HCl (Tamsulosin Hcl 0.4 Mg Capsule) 0.4 mg PO BEDTIME REPLACED BY [facility] Last Admin: 10/19/22 21:16 Dose: 0.4 mg Documented By: TAWNYA Labs 10/20/22 06:18 10/20/22 06:18 Labs: Laboratory Results - last 24 hr 10/19/22 10/19/22 10/20/22 16:11 20:33 06:18 MCV MCH MCHC RDW Plt Count MPV Absolute Nucleated RBC Nucleated RBC % (auto) Anion Gap 13 Estim Creat Clear Calc 44.9 Estimated GFR 54 POC Glucose 147 H 168 H Random Glucose 96 Calcium 8.1 L 10/20/22 10/20/22 06:18 07:32 MCV 94.8 MCH 31.9 MCHC 33.7 RDW 11.9 Plt Count 224 MPV 11.5 Absolute Nucleated RBC 0.000 Nucleated RBC % (auto) 0.0 Anion Gap Estim Creat Clear Calc Estimated GFR POC Glucose 93 Random Glucose Calcium Assessment and Plan (1) Osteomyelitis: Status: Acute (2) Diabetes: Status: Acute (3) Hypertension: Status: Acute Plan 81yo M with DM2 [A1c 6.8] + neuropathy, PAD, HLD, HTN admitted for osteomyelitis of L great toe L great toe acute osteomyelitis + cellulitis associated with DM + PAD d#11 vanco + cefepime. PICC placed 10/16/22. ID consulted, will likely transition to ertapenem upon discharge x 6 wk but need to look into coverage- per CM ertapenem may not be covered? BCx 10/10/22 -> contaminant. No growth from BCx from 10/12/22. ESTEPHANIA. Resolved FENa 6% likely postrenal obstruction due to prostatism lisinopril on hold. Nephrology following prostatism started finasteride + tamsulosin Urology consult pending hematuria Urology consult pending hold LMWH hyperK, mild, resolved held lisinopril PAD s/p angiogram/revascularization 10/19/22 continue statin DAPT when hematuria resolves DM2 correction-dose lispro HTN hold lisinopril VTE ppx: SCDs Attending Dr. Schwartz dispo: anticipate home with VNA In my clinical judgment, the patient requires continued inpatient hospitalization for the following reasons: IV ABX, safe disposition Time Spent With Patient Time: Total time managing care of this patient today ____ minutes. Quality Stroke Does the patient have a stroke diagnosis?: No VTE Prior VTE?: No VTE Risk Level:: Medical - moderate - high VTE Device Contraindication: Treatment Not Indicated VTE Drug Contraindication: N/A - Med Ordered
[2022-10-20 11:49] LABS: Glucose, Whole Blood 200 mg/dL (60-115)
--- NOTE | 2022-10-20 11:51 | PM.PNNEP ---
Subjective Subjective Date of Service: 10/20/22 Interval history: no fever foot pain controlled SCr better Physical Exam Vital Signs: Vital Signs: Last Vital Signs Temp 97.9 F 10/20/22 08:00 Pulse 72 10/20/22 08:00 Resp 18 10/20/22 08:00 BP 144/68 H 10/20/22 08:00 Pulse Ox 98 10/20/22 08:00 O2 Del Method 10/20/22 08:00 BMI result Body Mass Index 24.0 Const: Other: Awake alert oriented x3 no acute distress Nutritional Appearance: well nourished Orientation/consciousness: patient oriented x3 Limitations: no limitations HEENT: Ears: hearing grossly normal bilaterally and external ears normal General nose exam: Normal external nose present, no nasal discharge noted and no epistaxis Face and sinus: Yes normal facial exam, No abrasion and No laceration Eyes: Conjunctivae: conjunctivae normal Neck: Neck: Yes no lymphadenopathy Resp: Auscultation: no rales Cardio: Heart sounds: S1 normal heart sound present and S2 normal heart sound present GI: Palpation (GI): not firm and nontender Neuro: General: patient oriented x3 Extrem: General: No cyanosis Objective Data Labs 10/20/22 06:18 10/20/22 06:18 Labs: Laboratory Results - last 24 hr 10/19/22 10/19/22 10/20/22 16:11 20:33 06:18 WBC RBC Hgb Hct MCV MCH MCHC RDW Plt Count MPV Absolute Nucleated RBC Nucleated RBC % (auto) Sodium 140 Potassium 4.7 Chloride 114 H Carbon Dioxide 18 L Anion Gap 13 BUN 31 H Creatinine 1.29 Estim Creat Clear Calc 44.9 Estimated GFR 54 POC Glucose 147 H 168 H Random Glucose 96 Calcium 8.1 L 10/20/22 10/20/22 10/20/22 06:18 07:32 11:34 WBC 9.3 RBC 3.26 L Hgb 10.4 L Hct 30.9 L MCV 94.8 MCH 31.9 MCHC 33.7 RDW 11.9 Plt Count 224 MPV 11.5 Absolute Nucleated RBC 0.000 Nucleated RBC % (auto) 0.0 Sodium Potassium Chloride Carbon Dioxide Anion Gap BUN Creatinine Estim Creat Clear Calc Estimated GFR POC Glucose 93 200 H Random Glucose Calcium Microbiology Microbiology Results: Microbiology 10/12/22 16:21 Blood - Venous Blood Culture - Final No growth after 5 days. 10/12/22 16:21 Blood - Venous Blood Culture - Final No growth after 5 days. 10/10/22 11:26 Blood - Venous Blood Culture - Final Staphylococcus epidermidis Coag negative Staphylococcus 10/10/22 11:26 Blood - Venous Blood Culture - Final Staphylococcus epidermidis Procedures Date of Service Date of Service: 10/20/22 Assessment & Plan Assessment and plan (1) Osteomyelitis: Status: Acute (2) Diabetes: Status: Acute (3) Hypertension: Status: Acute (4) ESTEPHANIA (acute kidney injury): Status: Acute Plan ESTEPHANIA Most likely due to obstruction Cr improving with loza Suggest Loza Continue to hold Lisinopril Renally dose meds Pt for ? D/c Ok to go forangio - IVF pre and post Keep I >O Urology follow up Time Spent With Patient Time: Total time managing care of this patient today ____ minutes. Progress Note: Quality Stroke Does the patient have a stroke diagnosis?: No
[2022-10-20 12:00] VITALS: BP 173/80; PULSE 73; RESP 18; TEMP 36.7; O2SAT 92
[2022-10-20] MEDS: Insulin Lispro 100 UNIT/ML 3 ML VIAL SUBCUT ×2 (12:02→22:12)
[2022-10-20] MEDS: Multivitamin TABLET 1 TAB PO (12:02)
--- NOTE | 2022-10-20 13:30 | MHC.CM.PN ---
Addendum entered by Crista Spear 10/20/22 14:30: CM SPOKE TO [facility] PHARMACIST WHO REPORTS PTS [facility] WILL COST $138. PT INFORMED AND AGREEABLE HE IS AWAITING F/C AND PICC REMOVAL PT REPORTS HE CANNOT DRIVE AFTER DARK AND HIS CAR IS HERE Addendum entered by Crista Spear 10/20/22 13:55: CM ATTEMPTED TO CALL PTS PHARMACY, [facility] IN [place] [phone] THEY ARE CLOSED FOR LUNCH UNTIL 1400 HOURS CM WILL CALL BACK Original Note: PT REPORTS HE IS NOT WILLING TO PAY THE COPAYS RELATED TO IV ABX AT HOME HE IS ALSO NOT WILLING TO GO TO STR HE REPORTS HE WOULD PREFER TO LOSE HIS LEG THAN DO EITHER OF THOSE THINGS HE REPORTS HE WANTS TO TRY PO MEDS HE IS AWARE CM WILL CHECK COST OF THE PO MEDS AND HE WILL NEED TO WAIT FOR PICC LINE REMOVAL
[2022-10-20 14:12] VITALS: BP 173/80; PULSE 73; O2SAT 92
[2022-10-20 15:42] VITALS: BP 167/77; PULSE 66; RESP 18; TEMP 36.6; O2SAT 98
[2022-10-20 16:21] LABS: Glucose, Whole Blood 94 mg/dL (60-115)
--- NOTE | 2022-10-20 16:24 | PM.IDPN ---
Subjective Subjective Date of Service: 10/20/22 Critical Care Time (minutes): 15 Comment: he has improvement cellulitis he doesnt have insurance coverage adequate IV antibiotics possibly and wishes po Objective Data Labs 10/20/22 06:18 10/20/22 06:18 Labs: Laboratory Results - last 24 hr 10/19/22 10/20/22 10/20/22 20:33 06:18 06:18 WBC 9.3 RBC 3.26 L Hgb 10.4 L Hct 30.9 L MCV 94.8 MCH 31.9 MCHC 33.7 RDW 11.9 Plt Count 224 MPV 11.5 Absolute Nucleated RBC 0.000 Nucleated RBC % (auto) 0.0 Sodium 140 Potassium 4.7 Chloride 114 H Carbon Dioxide 18 L Anion Gap 13 BUN 31 H Creatinine 1.29 Estim Creat Clear Calc 44.9 Estimated GFR 54 POC Glucose 168 H Random Glucose 96 Calcium 8.1 L 10/20/22 10/20/22 10/20/22 07:32 11:34 16:01 WBC RBC Hgb Hct MCV MCH MCHC RDW Plt Count MPV Absolute Nucleated RBC Nucleated RBC % (auto) Sodium Potassium Chloride Carbon Dioxide Anion Gap BUN Creatinine Estim Creat Clear Calc Estimated GFR POC Glucose 93 200 H 94 Random Glucose Calcium Microbiology Microbiology Results: Microbiology 10/12/22 16:21 Blood - Venous Blood Culture - Final No growth after 5 days. 10/12/22 16:21 Blood - Venous Blood Culture - Final No growth after 5 days. 10/10/22 11:26 Blood - Venous Blood Culture - Final Staphylococcus epidermidis Coag negative Staphylococcus 10/10/22 11:26 Blood - Venous Blood Culture - Final Staphylococcus epidermidis Physical Exam Vital Signs: Vital Signs: Last Vital Signs Temp 97.9 F 10/20/22 15:42 Pulse 66 10/20/22 15:42 Resp 18 10/20/22 15:42 BP 167/77 H 10/20/22 15:42 Pulse Ox 98 10/20/22 15:42 O2 Del Method 10/20/22 15:42 BMI result Body Mass Index 24.0 Const: General: cooperative HEENT: Head: Yes normal to inspection Mouth: Normal oral and palatal mucosa present Resp: Effort & Inspection: normal respiratory effort Cardio: Rate: regular rate Rhythm: regular rhythm GI: Inspection: Yes normal to inspection Extrem: Other: reddened extremity left better Assessment and Plan Assessment and plan (1) Osteomyelitis: Problem details: he has improvement he wishes Guadalupe out Status: Acute Assessment and Plan: Po Linezolid 600 mg bid for four to six weeks. Guadalupe removal when able. Time Spent With Patient Time: Total time managing care of this patient today ____ minutes.
[2022-10-20 16:30] LABS: Vancomycin Trough 14.3 mcg/mL (10.0-20.0)
--- NOTE | 2022-10-20 16:39 | HO.REMOVAL ---
Removal of PICC/Midline Removal of PICC/Midline: Removal of PICC/Midline: 1. Date: 10/20/22 2. Reason removed: No longer needed 3. Inserted length: 46 cm 4. Removed length: 46 cm 5. A dressing was placed over the site upon removal. No edema or bleeding at the site.
--- NOTE | 2022-10-20 18:20 | PC.NURSE ---
pt. PICC line was discontinued and I wasn't aware. fluids were stopped. Provider aware.
[2022-10-20] MEDS: Linezolid 600 MG TABLET PO (19:37)
[2022-10-20 20:00] VITALS: BP 145/70; PULSE 70; RESP 18; TEMP 36.7; O2SAT 98
[2022-10-20 21:47] LABS: Glucose, Whole Blood 187 mg/dL (60-115)
[2022-10-20] MEDS: Tamsulosin HCL 0.4 MG CAPSULE PO (22:12)
[2022-10-21] VITALS: BP 139/72; PULSE 71; RESP 18; TEMP 36.3; O2SAT 98
[2022-10-21 03:59] VITALS: BP 152/70; PULSE 69; RESP 18; TEMP 36.5; O2SAT 99
[2022-10-21] MEDS: Linezolid 600 MG TABLET PO (05:35)
[2022-10-21] MEDS: Omeprazole 20 MG CAPSULE.DR PO (05:35)
[2022-10-21 06:37] LABS: Creatinine Clr Calc Pharmacy 48.6; Estimated Glomerular Filt Rate 59
--- NOTE | 2022-10-21 07:26 | P.DS_ITS ---
DS: Providers Provider Date of Service: 10/21/22 Date of admission: 10/10/22 14:49 Primary care physician: Omi Farrar MD Consults: 10/10/22 16:28 Consult to Vascular Surgery Routine Consulting Provider: Ez Gallegos Reason for consultation: PAD, left great toe ulcer 10/16/22 08:48 Consult to Infectious Diseases Routine Consulting Provider: Vilma Bush Reason for consultation: nonsurgical osteo Consult to Vascular Surgery Routine Consulting Provider: Ez Gallegos Reason for consultation: pad 10/17/22 09:50 Consult to Nephrology Routine Consulting Provider: [facility] Reason for consultation: pt needs angiogram but has ESTEPHANIA 10/18/22 10:13 Consult to Urology Routine Consulting Provider: [facility] Reason for consultation: hematuria + prostatism + hydronephrosis 10/20/22 11:08 Consult to Urology Routine Consulting Provider: Pedro Medina Reason for consultation: hematuria + prostatism + hydronephrosis Attending physician on discharge: Saúl Schwartz Discharging clinician: Kelly Stinson DS: Diagnosis Discharge Diagnosis (1) Osteomyelitis: Status: Acute (2) Diabetes: Status: Acute (3) Hypertension: Status: Acute DS: Summary Hospital Course Hospital Course: HP as per admitting provider 81-year-old male with history of controlled type 2 diabetes last A1c 6.8% with diabetic neuropathy, peripheral artery disease, occassional cigar smoker, former cigarette smoker, hyperlipidemia, and hyperten buddy presented to the ED earlier today for evaluation of a wound on the tip of the left great toe with redness, swelling which he noticed today.? He states he has been having pain in the left great toe for about 3-4 days.? He states he does not check his feet regularly and where black compression stockings for 2 days at a minimum without changing them.? Denies any purulent drainage or fevers.? He denies any history of diabetic foot infection.On arrival, vital stable.? Renal function baseline, electrolytes normal.? Lactic acid 1.0.? ESR 54, CRP 5.88.? X-ray of the foot negative for any acute abnormality or osteomyelitis.? Patient given empiric Zosyn and vancomycin in the ED.? Patient to be admitted for further management of acute cellulitis and left foot ulcer . L great toe acute osteomyelitis + cellulitis associated with DM + PAD Treated with vanco + cefepime.?? Plan was tyo transition to ertapenem however the cost of $600 weekly was to great for the patient discussed with ID and Zyvox was thought to be appropriate for 4 weeks BCx 10/10/22 -> contaminant.? No growth from BCx from 10/12/22. ESTEPHANIA. Resolved FENa 6% likely postrenal obstruction due to prostatism lisinopril held seen and evaluated by nephrology prostatism started finasteride + tamsulosin seen and evaluated by urology Hematuria. Resolved held LMWH hyperK, mild, resolved held lisinopril while inpatient PAD s/p angiogram/revascularization 10/19/22 continue statin, asa and plavix DM2 continue home medications HTN resume lisinopril Time Spent with Patient Time attestation: Total time managing care of this patient today ____ minutes. Discharge coordination time: Greater than 30 minutes Quality: Safe Use of Opioids Does Pt have an Active Cancer Diagnosis on the Problem List?: No Quality: Stroke Does the patient have a stroke diagnosis?: No Physical Exam 2 Vital Signs: Vital Signs: Last Vital Signs Temp 97.7 F 10/21/22 03:59 Pulse 69 10/21/22 03:59 Resp 18 10/21/22 03:59 BP 152/70 H 10/21/22 03:59 Pulse Ox 99 10/21/22 03:59 O2 Del Method 10/21/22 03:59 BMI result Body Mass Index 24.0 Appearing in no acute distress lung sounds are clear to auscultation heart regular rate rhythm, clear S1, S2 positive bowel sounds, abdomen is soft, nontender neuro patient is alert x3, no focal deficits DS: Data Data Completed and Pending Labs on day of discharge: Laboratory Results - last 24 hr 10/20/22 10/20/22 10/20/22 07:32 11:34 15:58 Creatinine Estim Creat Clear Calc Estimated GFR POC Glucose 93 200 H Vancomycin Trough 14.3 10/20/22 10/20/22 10/21/22 16:01 21:43 05:49 Creatinine 1.19 Estim Creat Clear Calc 48.6 Estimated GFR 59 POC Glucose 94 187 H Vancomycin Trough Discharge Plan Discharge Anticipated Discharge Date/Time: 10/21/22 07:22 Patient Disposition: Home Health Service Discharge Diagnosis: Left great toe acute cellulitis ESTEPHANIA Prostatism Hematuria Status post angiogram and revascularization Referrals: [facility] [Outside] - 1 Week Ez Gallegos MD [Physician] - 1 Week Omi Farrar MD [Primary Care Provider] - 1 Week Discharge Medications: New linezolid 600 mg tablet 600 mg PO BID Qty: 56 0RF clopidogrel 75 mg Tablet 75 mg PO DAILY Qty: 30 0RF tamsulosin 0.4 mg Capsule 0.4 mg PO BEDTIME Qty: 30 0RF aspirin 81 mg Tablet,Chewable 81 mg PO DAILY Qty: 30 0RF finasteride 5 mg Tablet 5 mg PO DAILY Qty: 30 0RF Continued atorvastatin 40 mg tablet 40 mg PO MOTH@1800 lisinopril 20 mg tablet 1 tab PO DAILY cyclosporine [Restasis] 0.05 % Dropperette 1 drp OPHTHALMIC (EYE) Q12H Rx Instructions: instill 1 drop into both eyes arginine HCl (L-arginine) 1,000 mg Tablet 1,000 mg PO DAILY SPS (with sorbitol) 15-20 gram/60 mL suspension 60 ml PO SA@0900 omega-3 fatty acids 1,000 mg capsule 1,000 mg PO DAILY@1200 multivitamin Tablet 1 tab PO DAILY@1200 metformin 500 mg tablet 500 mg PO BID omeprazole 20 mg tablet,delayed release (DR/EC) 20 mg PO DAILY@0630 Discharge Orders: Discharge Order (Routine); Ordered 10/21/22 Ordered By: Kelly Stinson Diet: Advance to usual diet Activity on Discharge: As tolerated Stand Alone Forms: Patient Portal Discharge page Activity Restrictions/Additional Instructions: Wound care upon discharge: Dry protective dressing to left great toe. Please call Dr. Gallegos at [phone] for 2 week follow up for postprocedure follow-up. Due to the use of a drug coated balloon during the procedure you will be required to be on aspirin and Plavix daily Care Plan Goals: Resolution of symptoms Health Concerns: Left great toe acute cellulitis ESTEPHANIA Prostatism Hematuria Status post angiogram and revascularization Plan of Treatment: Take all medications as prescribed follow up with primary care providers as needed Assessment: see discharge summary Discharge Date/Time: 10/21/22 11:31
[2022-10-21 08:00] VITALS: BP 148/70; PULSE 62; RESP 18; TEMP 36.6; O2SAT 98
[2022-10-21 08:07] LABS: Glucose, Whole Blood 133 mg/dL (60-115)
[2022-10-21] MEDS: Clopidogrel Bisulfate 75 MG TABLET PO (08:51)
[2022-10-21] MEDS: Finasteride 5 MG TABLET PO (08:51)
[2022-10-21] MEDS: polyethylene glycoL 3350 17 GM POWD.PACK PO (08:51)
[2022-10-21] MEDS: Aspirin 81 MG TAB.CHEW PO (08:51)
[2022-10-21 08:55] VITALS: BP 126/90; PULSE 78; RESP 18; TEMP 36.4; O2SAT 98
--- NOTE | 2022-10-21 09:21 | HO.PM.IMPN ---
Subjective Subjective Date of Service: 10/21/22 Interval History: no fever foot pain controlled SCr normalized Review of Systems Review of Systems: Yes all other systems are reviewed and are negative Physical Exam Vital Signs: Vital Signs: Last Vital Signs Temp 97.6 F 10/21/22 08:55 Pulse 78 10/21/22 08:55 Resp 18 10/21/22 08:55 BP 126/90 H 10/21/22 08:55 Pulse Ox 98 10/21/22 08:55 O2 Del Method 10/21/22 08:55 BMI result Body Mass Index 24.0 Appearing in no acute distress lung sounds are clear to auscultation heart regular rate rhythm, clear S1, S2 positive bowel sounds, abdomen is soft, nontender neuro patient is alert x3, no focal deficits Objective Data Active Medications Acetaminophen (Acetaminophen 325 Mg Tablet) 650 mg PO Q6H PRN PRN Reason: Pain, Mild (Pain Scale 1-3) Last Admin: 10/18/22 10:19 Dose: 650 mg Documented By: MARINA Aspirin (Aspirin 81 Mg Tab.Chew) 81 mg PO DAILY [facility] Last Admin: 10/21/22 08:51 Dose: 81 mg Documented By: JENNIFER Atorvastatin Calcium (Atorvastatin Calcium 40 Mg Tablet) 40 mg PO MOTH@1800 [facility] Last Admin: 10/19/22 18:28 Dose: 40 mg Documented By: CYNDIE Clopidogrel Bisulfate (Clopidogrel Bisulfate 75 Mg Tablet) 75 mg PO DAILY [facility] Last Admin: 10/21/22 08:51 Dose: 75 mg Documented By: JENNIFER Dextrose (Dextrose 50 % 25 Gm/50 Ml Syringe) 25 gm IVPUSH Q15M PRN; Protocol PRN Reason: per Hypoglycemia Standing Ord. Enoxaparin Sodium (Enoxaparin Sodium 40 Mg/0.4 Ml Syringe) 40 mg SUBCUT Q24H [facility] Last Admin: 10/15/22 15:35 Dose: 40 mg Documented By: BULMARO Finasteride (Finasteride 5 Mg Tablet) 5 mg PO DAILY [facility] Last Admin: 10/21/22 08:51 Dose: 5 mg Documented By: JENNIFER Glucose (Glucose Gel 15 Gm Gel..Gram.) 15 gm PO Q15M PRN; Protocol PRN Reason: per Hypoglycemia Standing Ord. Insulin Human Lispro (Insulin Lispro 100 Unit/Ml 3 Ml Vial) 0 unit SUBCUT QIDACHS [facility]; Protocol Last Admin: 10/21/22 08:01 Dose: Not Given Documented By: JENNIFER Non-Admin Reason: No Insulin Coverage Linezolid (Linezolid 600 Mg Tablet) 600 mg PO Q12H [facility] Last Admin: 10/21/22 05:35 Dose: 600 mg Documented By: CATALINO Lisinopril (Lisinopril 20 Mg Tablet) 20 mg PO DAILY [facility]; Protocol Last Admin: 10/17/22 08:27 Dose: 20 mg Documented By: THOMAS Morphine Sulfate (Morphine Sulfate 4 Mg/Ml Cartridge) 4 mg IVPUSH Q2H PRN; Protocol PRN Reason: Pain, Severe (Pain Scale 7-10) Multivitamins/Vitamin C (Multivitamin Tablet) 1 tab PO DAILY@1200 [facility] Last Admin: 10/20/22 12:02 Dose: 1 tab Documented By: CAESAR Omeprazole (Omeprazole 20 Mg Capsule.Dr) 20 mg PO DAILY@0630 [facility] Last Admin: 10/21/22 05:35 Dose: 20 mg Documented By: CATALINO Ondansetron HCl (Ondansetron Hcl 4 Mg/2 Ml Vial) 4 mg IVPUSH Q8H PRN PRN Reason: Nausea and Vomiting Oxycodone HCl (Oxycodone Hcl Immed Release 5 Mg Tablet) 5 mg PO Q4H PRN PRN Reason: Pain, Moderate (Pain Scale 4-6 Last Admin: 10/20/22 22:38 Dose: 5 mg Documented By: CATALINO Pharmacy Consult (Consult Rx Perform Med Rec) 1 each MISCELLANE ONCE PRN PRN Reason: Consult order Polyethylene Glycol (Polyethylene Glycol 3350 17 Gm Powd.Pack) 17 gm PO DAILY [facility] Last Admin: 10/21/22 08:51 Dose: 17 gm Documented By: JENNIFER Sodium Chloride (0.9 % Sodium Chloride Flush 3 Ml Syringe) 3 ml IVFLUSH QSHIFT [facility] Last Admin: 10/21/22 08:01 Dose: Not Given Documented By: JENNIFER Non-Admin Reason: No Access Sodium Chloride (0.9 % Sodium Chloride Flush 10 Ml Syringe) 5 ml IVFLUSH TID [facility] Last Admin: 10/21/22 08:01 Dose: Not Given Documented By: JENNIFER Non-Admin Reason: No Access Sodium Polystyrene Sulfonate (Sodium Polystyrene Sulfon/Sorb 15 Gm/60 Ml Oral.Susp) 15 gm PO SA@0900 [facility] Last Admin: 10/14/22 11:20 Dose: Not Given Documented By: LIBBY Non-Admin Reason: Med Not Available Tamsulosin HCl (Tamsulosin Hcl 0.4 Mg Capsule) 0.4 mg PO BEDTIME [facility] Last Admin: 10/20/22 22:12 Dose: 0.4 mg Documented By: CATALINO Labs 10/20/22 06:18 10/21/22 05:49 Labs: Laboratory Results - last 24 hr 10/20/22 10/20/22 10/20/22 11:34 15:58 16:01 Estim Creat Clear Calc Estimated GFR POC Glucose 200 H 94 Vancomycin Trough 14.3 10/20/22 10/21/22 10/21/22 21:43 05:49 07:29 Estim Creat Clear Calc 48.6 Estimated GFR 59 POC Glucose 187 H 133 H Vancomycin Trough Assessment and Plan (1) Osteomyelitis: Status: Acute (2) Diabetes: Status: Acute (3) Hypertension: Status: Acute Plan 81yo M with DM2 [A1c 6.8] + neuropathy, PAD, HLD, HTN admitted for osteomyelitis of L great toe L great toe acute osteomyelitis + cellulitis associated with DM + PAD d#11 vanco + cefepime. PICC placed 10/16/22. Plan was tyo transition to ertapenem however the cost of $600 weekly was to great for the patient discussed with ID and Zyvox was thought to be appropriate for 4 weeks BCx 10/10/22 -> contaminant. No growth from BCx from 10/12/22. ESTEPHANIA. Resolved FENa 6% likely postrenal obstruction due to prostatism lisinopril on hold. Nephrology following prostatism started finasteride + tamsulosin Urology consult pending hematuria Urology consult pending hold LMWH hyperK, mild, resolved held lisinopril PAD s/p angiogram/revascularization 10/19/22 continue statin DAPT when hematuria resolves DM2 correction-dose lispro HTN hold lisinopril VTE ppx: SCDs Attending Dr. Brown dispo: anticipate home with VNA In my clinical judgment, the patient requires continued inpatient hospitalization for the following reasons: IV ABX, safe disposition Time Spent With Patient Time: Total time managing care of this patient today ____ minutes. Quality Stroke Does the patient have a stroke diagnosis?: No VTE Prior VTE?: No VTE Risk Level:: Medical - moderate - high VTE Device Contraindication: Treatment Not Indicated VTE Drug Contraindication: N/A - Med Ordered
--- NOTE | 2022-10-21 10:38 | MHC.CM.PN ---
UPON ARRIVAL TO UNIT, CM WAS INFORMED PT NOW WANTED TO GO TO STR REFERRALS WERE MADE AND [facility] OF OFFERED A BED PTS DAUGHTERS ARRIVED ON THE UNIT AROUND 1030 HOURS HOWEVER AND PT NOW HAS DECIDED HE WOULD PREFER TO DC HOME PT AND DAUGHTERS ARE AWARE PT WILL HAVE A VNA FOR PT AND SN THEY ARE ALSO AWARE PTS MEDS WERE SENT TO [facility] IN [place] YESTERDAY AND WILL BE READY FOR PANEL MONITOR THEY ARE ALSO AWARE OF COST OF LINEZOLID ($138) PTS DAUGHTER DID CONFIRM THAT IF PT CANNOT MANAGE AT HOME HE IS ABLE TO RETURN TO ED DAUGHTERS WILL TRANSPORT COMFORT PLUS VNA NOTIFIED OF DC VIA [facility] AND [facility] REFERRALS CANCELED
--- NOTE | 2022-10-21 10:42 | W.MHC.F2F ---
Service Date Service Date: 10/21/22 Encounter Date of encounter: 10/21/22 Reasons for Services Signs and symptoms assessed: Weakness Foot wound Reason for care home: wound care Reason for physical therapy: home safety and mobility Homebound: Leaving the home is medically contraindicated at this time without the asist of a device and/or another person due th the listed conditions above and below. Reason homebound: unsteady gait / fall risk and other (foot wound ) Certification: Based on the above findings, I certify that this patient is confined to the home and needs intermittent care home care, physical therapy and/or speech therapy, or continues to need occupational therapy. The patient is under my care, and I have initiated the establishment of the plan of care. The patient will be followed by a physician who will periodically review the plan of care. Time Spent With Patient Time: Total time managing care of this patient today ____ minutes.
== END 2022-10-21 11:31 | disposition home health service (06) | DRG 271 ==
LOC: HO.ED 14:03 → HO.EDOVER 15:07 → HO.S3 17:36
PROVIDERS: Family Medicine; Hospitalist; Internal Medicine; Physician Assistant Medical; Surgery Vascular Surgery; Admitting Provider Physician Assistant; Emergency Provider Student in an Organized Health Care Education/Training Program; PCP Internal Medicine; Visit Provider Nurse Practitioner Acute Care
PROC: 04CD3ZZ Extirpation of Matter from Left Common Iliac Artery, Percutaneous Approach (ICD-10-PCS; principal; 2022-10-19 11:30)
DX: E11.51 Type 2 diabetes mellitus with diabetic peripheral angiopathy without gangrene (principal); L03.116 Cellulitis of left lower limb; M86.172 Other acute osteomyelitis, left ankle and foot; N17.9 Acute kidney failure, unspecified; N13.8 Other obstructive and reflux uropathy; L40.50 Arthropathic psoriasis, unspecified; L97.529 Non-pressure chronic ulcer of other part of left foot with unspecified severity; I70.245 Atherosclerosis of native arteries of left leg with ulceration of other part of foot; E11.69 Type 2 diabetes mellitus with other specified complication; E11.628 Type 2 diabetes mellitus with other skin complications; E87.5 Hyperkalemia; R31.9 Hematuria, unspecified; E11.40 Type 2 diabetes mellitus with diabetic neuropathy, unspecified; N40.1 Benign prostatic hyperplasia with lower urinary tract symptoms; F17.290 Nicotine dependence, other tobacco product, uncomplicated; Z20.822 Contact with and (suspected) exposure to COVID-19; Z88.1 Allergy status to other antibiotic agents; Z79.84 Long term (current) use of oral hypoglycemic drugs; Z79.899 Other long term (current) drug therapy
CPT/HCPCS: 36415; 36573; 37225; 71045; 73620; 73720; 76775; 76857; 76937; 80048; 80053; 80202; 81001; 82565; 82947; 83605; 83735; 84300; 84520; 85025; 85027; 85652; 86140; 87040; 87077; 87147; 87186; 87205; 87493; 87635; 89190; 93926; 96365; 96375; 97162; 99152; 99153; 99285; A9585; C1714; C1725; C1751; C1758; C1760; C1769; C1884; C1887; J0692; J1650; J2543; J2997; J3370; J3371

== ENCOUNTER 2022-10-30 13:19 | Inpatient (IN) | payer MEDICARE, SELFPAY ==
--- NOTE | ~2022-10-30 | XR_ITS ---
EXAMINATION: XR FOOT, LEFT CLINICAL INFORMATION: Foot pain. Recent osteomyelitis of the left great toe. COMPARISON: Left foot 10/10/2022. MRI of the foot 10/11/2022 TECHNIQUE: AP, lateral, and oblique views of the left foot. FINDINGS: Since the prior exam of 10/10/2022 there has been progressive bone loss and bone destruction of the distal tuft distal phalanx of the great toe. There is also progressive bone destruction of the diaphyseal shaft of the distal phalanx of the great toe. The articular surface of the bone is maintained. There is soft tissue swelling of the great toe distally is well. No other focal bone lesion or bone destruction. No abnormal periosteal reaction. There is a plantar calcaneal spur. There are vascular calcifications in soft tissues. Orthopedic plate and screw at the syndesmosis of the ankle medial malleolus. Ankle XR/XR foot LT min 3V IMPRESSION: Progressive bone loss and bone destruction of the distal tuft of the distal phalanx of the great toe consistent with osteomyelitis. There is also developing bone destruction of the diaphyseal shaft of the distal phalanx of the great toe.
--- NOTE | ~2022-10-30 | US_ITS ---
EXAMINATION: COLOR-FLOW DUPLEX IMAGING OF THE BILATERAL LOWER EXTREMITY ARTERIAL SYSTEM. VELOCITY MEASUREMENTS THROUGHOUT THE FEMORAL ARTERIES. CLINICAL INFORMATION: This is a 81 year-old man with nonhealing ulcers. RIGHT FEMORAL RUNOFF VELOCITIES: The right common femoral artery peak systolic velocity is 120 cm/s. The waveform is biphasic. The right profunda femoral artery peak systolic velocity is 100 cm/s. The waveform is biphasic. The right proximal superficial femoral artery peak systolic velocity is 82 cm/s. The waveform is triphasic. The right mid superficial femoral artery peak systolic velocity is 73 cm/s. The waveform is triphasic. The right distal superficial femoral artery peak systolic velocity is 79 cm/s. The waveform is biphasic. The right popliteal artery peak systolic velocity is 94 cm/s. The waveform is triphasic. The right posterior tibial artery peak systolic velocity is 47 cm/s. Waveform is biphasic. LEFT FEMORAL RUNOFF VELOCITIES: The left common femoral artery peak systolic velocity is 106 cm/s. The waveform is biphasic. The left profunda femoral artery peak systolic velocity is 135 cm/s. The waveform is biphasic. The left proximal superficial femoral artery peak systolic velocity is 76 cm/s. The waveform is triphasic. The left mid superficial femoral artery peak systolic velocity is 120 cm/s. The waveform is triphasic. The left distal superficial femoral artery peak systolic velocity is 99 cm/s. The waveform is triphasic. The left popliteal artery peak systolic velocity is 141 cm/s. The waveform is biphasic. The left posterior tibial artery peak systolic velocity is 124 cm/s. The waveform is biphasic. US/US arterial duplex LE IMPRESSION: 1. There is hemodynamically significant right infrapopliteal arterial disease.. 2. No hemodynamically significant left lower extremity arterial disease is seen. EXAMINATION: NONINVASIVE ANKLE BRACHIAL INDICES OF BOTH LOWER EXTREMITIES CLINICAL INFORMATION: Diabetes and nonhealing ulcer. COMPARISON: Left lower extremity arterial duplex dated 10/10/2027.. TECHNIQUE: Ankle-brachial indices were calculated bilaterally and PVR tracings were performed at the level of the ankles. This study was performed at rest only. FINDINGS: a) AT REST: 1. The ankle-brachial indices are: Right 1.03 and left 1.51. >0.97-1.25 = normal - no significant arterial disease. 0.75-0.96 = mild peripheral arterial disease. 0.5-0.74 = moderate peripheral arterial disease. <0.50 = severe peripheral arterial disease. 2. PVR waveforms at ankle: Right amplitude shows mild asymmetric dampening. IMPRESSION: The right ankle-brachial index is normal. The left ankle-brachial index is abnormally elevated, suggesting diffuse noncompliant atherosclerotic calcifications.
[2022-10-30 13:26] VITALS: BP 149/67; PULSE 66; O2SAT 100
[2022-10-30 13:28] VITALS: BP 160/80; PULSE 72; O2SAT 100; BMI 24.5
--- NOTE | 2022-10-30 14:19 | ED.GENADULT ---
HPI - General Adult General Chief complaint: General Medical Stated complaint: LLE PAIN X'S 2 DAYS, NO INJURY PER EMS Time Seen by Provider: 10/30/22 13:58 Source: patient Mode of arrival: ambulatory Limitations: no limitations History of Present Illness HPI narrative: 81-year-old male with history of type 2 diabetes, peripheral neuropathy and peripheral artery disease presents for evaluation of left foot pain. Patient was admitted to the hospital on October 10 and dichargd on October 21. He was diagnosed with osteo myelitis of the left great toe. During his hospitalization he underwent revascularization of the left popliteal artery by Dr. Gallegos. he is currently on Plavix and aspirin. He was discharged on Zyvox per recommendation of Infectious Disease. He has had visiting nurse come regularly and was recommended to come to the emergency department for evaluation. Since his discharge, the patient has had increasing pain and swelling to the left foot. He notes that his pain is moderate to severe insert of the toe and radiates the heel. He denies any fevers or chills. He has been taking his medications appropriately. There is no new drainage noted. Patient has not been taking anything for his pain. Pain is worse with palpation and movement. It is also worse without exacerbation. Related Data Home Medications Medication Instructions Recorded Confirmed metformin 500 mg tablet 500 mg PO BID 06/30/20 10/10/22 multivitamin 1 tab PO DAILY@1200 06/30/20 10/10/22 omega-3 fatty acids 1,000 mg 1,000 mg PO DAILY@1200 06/30/20 10/10/22 capsule omeprazole 20 mg tablet,delayed 20 mg PO DAILY@0630 06/30/20 10/10/22 release arginine HCl (L-arginine) 1,000 mg 1,000 mg PO DAILY 10/10/22 10/10/22 tablet atorvastatin 40 mg tablet 40 mg PO MOTH@1800 10/10/22 10/10/22 cyclosporine 0.05 % eye drops in a 1 drp ophthalmic (eye) Q12H 10/10/22 10/10/22 dropperette (Restasis) lisinopril 20 mg tablet 1 tab PO DAILY 10/10/22 10/10/22 sodium polystyrene sulfonate 15 60 ml PO SA@0900 10/10/22 10/10/22 gram-sorbitol 20 gram/60 mL oral susp (SPS (with sorbitol)) Previous Rx's Medication Instructions Recorded aspirin 81 mg chewable tablet 81 mg PO DAILY #30 tabs 10/20/22 clopidogrel 75 mg tablet 75 mg PO DAILY #30 tabs 10/20/22 finasteride 5 mg tablet 5 mg PO DAILY #30 tabs 10/20/22 linezolid 600 mg tablet 600 mg PO BID #56 tabs 10/20/22 tamsulosin 0.4 mg capsule 0.4 mg PO BEDTIME #30 caps 10/20/22 Allergies Allergy/AdvReac Type Severity Reaction Status Date / Time clindamycin [From CLEOCIN] Allergy Severe BLACK STOOL Verified 10/17/22 16:57 Review of Systems Review of Systems: Yes all other systems are reviewed and are negative Constitutional: Constitutional: Denies fatigue, Denies fever(s) and Denies weakness Eyes: Eyes: Reports no additional eye complaints ENT: Reports system reviewed and no additional complaints, except as documented Cardiovascular: Cardiovascular: Reports no additional cardiovascular complaints Respiratory: Respiratory: Reports no additional respiratory complaints Gastrointestinal: Gastrointestinal: Reports no additional gastrointestinal complaints Genitourinary: Genitourinary: Reports no additional male genitourinary complaints Musculoskeletal: Musculoskeletal: Reports as per HPI Integumentary/Breasts: Skin/Breast: Reports wounds ( Left great toe) Neurologic: Reports system reviewed and no additional complaints, except as documented and Denies weakness Psychiatric: Psychiatric: Reports no additional psychiatric complaints Endocrine: Endocrine: Reports no additional endocrine complaints and Denies fatigue Hematologic/Lymphatic: Hematologic/Lymphatic: Reports no additional hematologic/lymphatic complaints [facility] Past Medical History Medical History Diabetes Hypertension PAD (peripheral artery disease) PSA (psoriatic arthritis) Skin ulcer of left great toe Type 2 diabetes mellitus Social History Social History Household Members: Children Housing: House Alcohol intake: former Patient Tobacco Use Status: Never used Tobacco Tobacco use type: Cigarette Second Hand Smoke Exposure: No Advance Directives: Yes Advance Directives on File: Yes Advance Directives Date on File: 10/10/22 Physical Exam ED Vital Signs: Vital Signs - 24 hr 10/30/22 13:26 Pulse Rate 66 Blood Pressure 149/67 H Pulse Oximetry 100 Oxygen Delivery Method Room Air BMI result Body Mass Index 24.5 Const General: cooperative, healthy appearing, comfortable and no acute distress Orientation/consciousness: patient oriented x3 HENMT Head: Yes normal to inspection Eyes General: appearance normal, both eyes and all related structures Resp Auscultation: clear to auscultation bilaterally Cardio Rate: regular rate Rhythm: regular rhythm Skin Wounds: wounds noted ( left great toe with swelling and erythema no purulent drainage) Neuro General: patient oriented x3 and no focal motor deficits Extrem General: Yes pedal edema ( lower extremity 1+) Course Course Course Narrative: 81-year-old male with recent history of osteomyelitis status post revascularization left popliteal artery presents with increasing swelling, redness and pain. I examination is consistent with possible progression of recently diagnosed infection. Will order imaging studies, lab work. Blood cultures will be ordered. Will check inflammatory markers. Will order an x-ray of the foot. Also will address patient's pain. Reevaluation(s) Reevaluation #1: Discussed results with the patient. He is aware that his osteomyelitis appears to be getting worse at this time. I discussed care with the hospitalist was firmly with his care as well. We will start the patient on broad-spectrum antibiotics to cover MRSA as well as Pseudomonas or other bacteria. Patient is aware for the necessity for hospitalization at this time. Time: 16:49 Medications Administered Discontinued Medications Generic Name Dose Route Start Last Admin Trade Name Freq PRN Reason Stop Dose Admin Oxycodone HCl 5 mg 10/30/22 14:36 10/30/22 15:54 Oxycodone Hcl Immed Release 5 Mg Tablet PO 10/30/22 14:37 5 mg ONCE ONE Administration Medical Decision Making Medical Decision Making [facility] Narrative: 74-year-old male with history of type 2 diabetes, diabetic neuropathy, peripheral artery disease presents with increased swelling, redness and pain to the left foot. This concerning for progression of his osteomyelitis versus soft tissue infection. There is a good chance patient will need to be admitted to the hospital. Will order routine laboratory analysis and imaging studies indeterminate disposition Differential Diagnosis Differential Diagnoses: The differential diagnosis associated with the presentation includes ( Osteomyelitis, cellulitis, soft tissue infection, edema) Osteomyelitis, diabetes Admission/Observation Consideration of admission/observation: Escalation of care including admission/observation considered Consult Healthcare Provider Management of the patient was discussed with: Hospitalist Lab Data [facility] Lab Attestation statement: I reviewed the patient's lab results. 10/30/22 14:33 10/30/22 14:33 Labs: Lab Results 10/30/22 10/30/22 10/30/22 Range/Units 14:33 14:33 14:33 WBC 8.7 (4.8-10.8) X10*3/uL RBC 3.37 L (4.60-5.80) X10*6/uL Hgb 11.0 L (14.0-18.0) g/dl Hct 32.8 L (42.0-52.0) % MCV 97.3 (80.0-98.0) fL MCH 32.6 (27.0-33.0) pg MCHC 33.5 (31.0-36.0) g/dl RDW 12.5 (11.0-16.0) % Plt Count 280 (160-400) X10*3/uL MPV 10.5 (9.4-12.4) fL Immature Gran % (Auto) 0.2 (0.0-0.4) % Neut % (Auto) 54.3 (45-73) % Lymph % (Auto) 32.7 (20-40) % Granite % (Auto) 9.3 (2-11) % Eos % (Auto) 3.3 (0-4) % Baso % (Auto) 0.2 (0-2) % Lymph # (Auto) 2.9 (1.2-4.9) X10*3/uL Granite # (Auto) 0.8 (0.1-1.2) X10*3/uL Eos # (Auto) 0.3 (0.0-0.4) X10*3/uL Baso # (Auto) 0.0 (0.0-0.2) X10*3/uL Abs Immat Gran (auto) 0.02 (0.00-0.03) X10*3/uL Absolute Neuts (auto) 4.7 (2.0-8.3) x10*3/uL Absolute Nucleated RBC 0.000 (0.0-0.012) X10*3/uL Nucleated RBC % (auto) 0.0 (0.0-0.2) /100WBC ESR 123 H (0-15) MM/HR Sodium 139 (135-145) mmol/L Potassium 5.7 H D (3.3-5.1) mmol/L Chloride 111 H (96-108) mmol/L Carbon Dioxide 18 L (22-29) mmol/L Anion Gap 16 (12-20) BUN 55 H (9-16) mg/dL Creatinine 1.50 H (0.5-1.4) mg/dL Estim Creat Clear Calc 38.6 Estimated GFR 45 Random Glucose 83 (60-115) mg/dL Calcium 9.4 D (8.4-10.2) mg/dL C-Reactive Protein 0.26 (< or = 0.50) mg/dL Independent Interpretation I performed an independent interpretation of an: Plain X-Ray (progressive boneloss) Radiology Impression Discussion of test interpretation with radiology: I have reviewed the radiologist's reading. ( XR/XR foot LT min 3V IMPRESSION: Progressive bone loss and bone destruction of the distal tuft of the distal phalanx of the great toe consistent with osteomyelitis. There is also developing bone destruction of the diaphyseal shaft of the distal phalanx of the great toe. Dict) External Record Review External record reviewed: Inpatient record ( patient recent hospitalization. Reviewed vascular surgery consultation and procedure as well as discharge summary from the hospitalist.) Tests considered The following testing was considered but not selected: MRI, bone scan Prescription Management I considered prescription management with: Pain Medication Chronic Conditions Patient?s care impacted by: Diabetes Core Measures Measure exclusions: not indicated Discharge Plan Discharge Clinical Impression: Osteomyelitis Patient Disposition: Admitted As Inpatient Prescriptions: No Action atorvastatin 40 mg tablet 40 mg PO MOTH@1800 lisinopril 20 mg tablet 1 tab PO DAILY cyclosporine [Restasis] 0.05 % Dropperette 1 drp OPHTHALMIC (EYE) Q12H Rx Instructions: instill 1 drop into both eyes arginine HCl (L-arginine) 1,000 mg Tablet 1,000 mg PO DAILY SPS (with sorbitol) 15-20 gram/60 mL suspension 60 ml PO SA@0900 linezolid 600 mg tablet 600 mg PO BID Qty: 56 0RF clopidogrel 75 mg Tablet 75 mg PO DAILY Qty: 30 0RF tamsulosin 0.4 mg Capsule 0.4 mg PO BEDTIME Qty: 30 0RF aspirin 81 mg Tablet,Chewable 81 mg PO DAILY Qty: 30 0RF finasteride 5 mg Tablet 5 mg PO DAILY Qty: 30 0RF omega-3 fatty acids 1,000 mg capsule 1,000 mg PO DAILY@1200 multivitamin Tablet 1 tab PO DAILY@1200 metformin 500 mg tablet 500 mg PO BID omeprazole 20 mg tablet,delayed release (DR/EC) 20 mg PO DAILY@0630
[2022-10-30 15:05] LABS: MANUAL DIFF FLAG NO
[2022-10-30 15:09] LABS: Basophils Percent Auto 0.2 % (0-2); Eosinophils Absolute Auto 0.3 X10*3/uL (0.0-0.4); Eosinophils Percent Auto 3.3 % (0-4); Hematocrit 32.8 % (42.0-52.0); Imm Gran Abs Auto 0.02 X10*3/uL (0.00-0.03); Imm Gran Pct Auto 0.2 % (0.0-0.4); Lymphocytes Absolute Auto 2.9 X10*3/uL (1.2-4.9); Lymphocytes Percent Auto 32.7 % (20-40); Mean Corpuscular HGB Conc 33.5 g/dl (31.0-36.0); Mean Corpuscular Hemoglobin 32.6 pg (27.0-33.0); Mean Corpuscular Volume 97.3 fL (80.0-98.0); Mean Platelet Volume 10.5 fL (9.4-12.4); Monocytes Absolute Auto 0.8 X10*3/uL (0.1-1.2); Monocytes Percent Auto 9.3 % (2-11); Neutrophils Absolute Auto 4.7 x10*3/uL (2.0-8.3); Neutrophils Percent Auto 54.3 % (45-73); Platelet Count 280 X10*3/uL (160-400); Red Blood Count 3.37 X10*6/uL (4.60-5.80); Red Cell Distribution Width 12.5 % (11.0-16.0); White Blood Count 8.7 X10*3/uL (4.8-10.8)
[2022-10-30 15:29] LABS: Anion Gap 16 (12-20); Blood Urea Nitrogen 55 mg/dL (9-16); C Reactive Protein 0.26 mg/dL (< or = 0.50); Calcium 9.4 mg/dL (8.4-10.2); Carbon Dioxide 18 mmol/L (22-29); Chloride 111 mmol/L (96-108); Creatinine Clr Calc Pharmacy 38.6; Estimated Glomerular Filt Rate 45; Glucose Random 83 mg/dL (60-115); Potassium 5.7 mmol/L (3.3-5.1); Sodium 139 mmol/L (135-145)
[2022-10-30 15:43] LABS: Erythrocyte Sedimentation Rate 123 MM/HR (0-15)
[2022-10-30] MEDS: oxyCODONE HCl Immed Release 5 MG TABLET PO (15:54)
--- NOTE | 2022-10-30 17:39 | P.HPHOSP_ITS ---
History of Present Illness Date of Service: 10/30/22 Attending physician on admission: Ed Bethea Chief Complaint: pain left great toe 81-year-old male with history of controlled type 2 diabetes last A1c 6.8% with diabetic neuropathy, peripheral artery disease, occassional cigar smoker, former cigarette smoker, hyperlipidemia, and hypertension presented to the ED earlier today for evaluation of pain in the left great toe. The patient was recently admitted 10/10- for osteomyelitis of the left great toe initially treated with vanco and cefepime with ID recommending 6 weeks IV ertapenam. However, pt insurance would not cover this so 6 weeks of linezolid was recommended which he has been taking as prescribed. He has been having [facility] at his home to change his dressings as he does have a chronic wound of the left great toe related to diabetes/PAD and did undergo revascularization during this recent admission with Dr. Gallegos. On arrival, VSS. No leukocytosis. ESR significantly elevated at 123, CRP normal. Cr 1.50 (baseline 1.19), BUN 55. Sodium 139, potassium 5.7, chloride 111, CO2 18. XR of the left foot showing progressive bone loss and bone destruction of the distal tuft of the distal phalanx of the little great toe consistent with osteomyelitis as well as developing bone destruction of the diaphyseal shaft of the distal phalanx of the great toe. Pt to be admitted for osteomyelitis of the left great toe having failed outpt PO therapies. Review of Systems Review of Systems: General: No fevers, malaise, unintentional weight loss Cardiovascular: No chest pain, palpitations, or leg edema Respiratory: No shortness of breath, wheezing, cough GI: No abdominal pain, nausea, vomiting, diarrhea, constipation, melena, hematochezia : No dysuria, hematuria, increased urinary frequency, decreased urinary output MSK: No myalgia, back pain. +pain left great toe Neuro: No headaches, weakness, paresthesias Skin: No rashes or lesions [facility] Medical History (Updated 10/30/22 @ 17:58 by BRIGID Mirza) Diabetes Hypertension PAD (peripheral artery disease) PSA (psoriatic arthritis) Skin ulcer of left great toe Type 2 diabetes mellitus Surgical History (Updated 10/30/22 @ 17:50 by BRIGID Mirza) History of atherectomy Social History Household Members: Children Housing: House Alcohol intake: former Patient Tobacco Use Status: Never used Tobacco Tobacco use type: Cigarette Second Hand Smoke Exposure: No Advance Directives: Yes Advance Directives on File: Yes Advance Directives Date on File: 10/10/22 Meds Allergies Allergy/AdvReac Type Severity Reaction Status Date / Time clindamycin [From CLEOCIN] Allergy Severe BLACK STOOL Verified 10/17/22 16:57 Active Medications: Current Medications Vancomycin HCl 1,000 mg/Vancomycin HCl 750 mg/ Sodium Chloride 535 mls @ 267.5 mls/hr IV ONCE ONE Stop: 10/30/22 18:59 Pharmacy Consult (Consult Rx Perform Med Rec) 1 each MISCELLANE ONCE PRN PRN Reason: Consult order Pharmacy Consult (Consult Rx Vancomycin Dosing) 1 each MISCELLANE DAILY PRN PRN Reason: Consult order Home Medications Medication Instructions Recorded Confirmed Last Taken Type metformin 500 mg tablet 500 mg PO BID 06/30/20 10/10/22 10/10/22 09:00 History multivitamin 1 tab PO DAILY@1200 06/30/20 10/10/22 10/09/22 History omega-3 fatty acids 1,000 mg 1,000 mg PO DAILY@1200 06/30/20 10/10/22 10/09/22 History capsule omeprazole 20 mg tablet,delayed 20 mg PO DAILY@0630 06/30/20 10/10/22 10/10/22 09:00 History release arginine HCl (L-arginine) 1,000 mg 1,000 mg PO DAILY 10/10/22 10/10/22 10/09/22 History tablet atorvastatin 40 mg tablet 40 mg PO MOTH@1800 10/10/22 10/10/22 10/09/22 History cyclosporine 0.05 % eye drops in a 1 drp ophthalmic (eye) Q12H 10/10/22 10/10/22 10/09/22 History dropperette (Restasis) lisinopril 20 mg tablet 1 tab PO DAILY 10/10/22 10/10/22 10/10/22 09:00 History sodium polystyrene sulfonate 15 60 ml PO SA@0900 10/10/22 10/10/22 10/07/22 History gram-sorbitol 20 gram/60 mL oral susp (SPS (with sorbitol)) Physical Exam Vital Signs and Narrative: Vital Signs: Last Vital Signs Pulse 66 10/30/22 13:26 BP 149/67 H 10/30/22 13:26 Pulse Ox 100 10/30/22 13:26 O2 Del Method 10/30/22 13:26 BMI result Body Mass Index 24.5 Constitutional - Awake and Alert, No apparent distress Eyes - PERRLA, EOMI Cardiovascular - S1S2, RRR, No edema. Nonpalpable left dorsalis pedis pulse Respiratory - Normal lung expansion, Normal respiratory effort, No respiratory distress, CTA bilaterally Gastrointestinal - NT / ND; +BS; No rebound or guarding Extremities - no calf tenderness bilaterally, no swelling Skin - Warm/Dry Neurological - Alert & oriented x3, CN II-XII in tact, 5/5 strength BUE and BLE Psychological - Appropriate affect Results Labs 10/30/22 14:33 10/30/22 14:33 Labs: Laboratory Results - last 24 hr 10/30/22 10/30/22 10/30/22 14:33 14:33 14:33 MCV 97.3 MCH 32.6 MCHC 33.5 RDW 12.5 Plt Count 280 MPV 10.5 Immature Gran % (Auto) 0.2 Neut % (Auto) 54.3 Lymph % (Auto) 32.7 [place] % (Auto) 9.3 Eos % (Auto) 3.3 Baso % (Auto) 0.2 Lymph # (Auto) 2.9 [place] # (Auto) 0.8 Eos # (Auto) 0.3 Baso # (Auto) 0.0 Abs Immat Gran (auto) 0.02 Absolute Neuts (auto) 4.7 Absolute Nucleated RBC 0.000 Nucleated RBC % (auto) 0.0 ESR 123 H Anion Gap 16 Estim Creat Clear Calc 38.6 Estimated GFR 45 Random Glucose 83 Calcium 9.4 D C-Reactive Protein 0.26 Imaging Radiologist's Impressions: Impressions Foot X-Ray 10/30/22 14:28 IMPRESSION: Progressive bone loss and bone destruction of the distal tuft of the distal phalanx of the great toe consistent with osteomyelitis. There is also developing bone destruction of the diaphyseal shaft of the distal phalanx of the great toe. Assessment and Plan (1) Osteomyelitis: Status: Acute Plan 81-year-old male with history of controlled type 2 diabetes last A1c 6.8% with diabetic neuropathy, peripheral artery disease, occassional cigar smoker, former cigarette smoker, hyperlipidemia, and hypertension presented to the ED earlier today for evaluation of pain in the left great toe. The patient was recently admitted 10/10- for osteomyelitis of the left great toe initially treated with vanco and cefepime with ID recommending 6 weeks IV ertapenam. However, pt insurance would not cover this so 6 weeks of linezolid was recommended which he has been taking as prescribed. He is admitted for osteomyelitis left great toe having failed outpt PO antibiotics. #Osteomylelitis Left great toe -XR showing progressive bone destruction distal and proximal phalynx. ESR 123 -Treated with IV vanco and cefepime during recent admission, discharged on PO linezolid as insurance did not cover IV ertapenem -underwent revascularization with Dr. Gallegos during last admission -vascular surgery consult placed -treat with IV vanco and cefepime for now, but may need amputation #Stage 2 ulcer distal great toe r/t PAD- present on arrival -Treat osteomyelitis as above #Controlled type 2 diabetes- last A1c 6.8% -POC glucose -Diabetic diet -Humalog on SS, hold metformin #HTN -continue home meds #PAD -continue statin, asa/plavix DVT prophylaxis-heparin Full code Patient requires inpatient stay for further management of osteomyelitis of left great toe requiring IV antibiotics, expert consultation, and possible amputation Time Spent With Patient Time: Total time managing care of this patient today ____ minutes. Quality Stroke Does the patient have a stroke diagnosis?: No VTE Prior VTE?: No VTE Risk Level:: Medical - moderate - high VTE Device Contraindication: Treatment Not Indicated VTE Drug Contraindication: N/A - Med Ordered
[2022-10-30] MEDS: vancomycin HCL 1,000 MG, vancomycin HCL 750 MG in 0.9 % Sodium Chloride 500 ML 267.5 MG IV (17:48)
[2022-10-30 18:08] LABS: COVID-19 Test Negative (Negative); IDNOW Serial# 16C4AD1C
--- NOTE | 2022-10-30 18:13 | PHA.PROG ---
Admission Date/Time: Indication: BONE AND JOINT INFECTION Weight in k.2 kg Adjusted body weight in K.3 [place] body weight in Kg: Obesity Dosing Indication % IBW: Serum Creatinine - Last 168 Hours 10/30/22 14:33 Creatinine 1.50 H Estimated CrCl and GFR - Last 168 Hours 10/30/22 14:33 Estim Creat Clear Calc 38.6 Estimated GFR 45 Vancomycin Loading Dose: 1750 MG Current Vancomycin Dosing Regimen:1 GRAM Q 24 HOURS Vancomycin Monitoring using AUC goal of 400 - 600 range with trough as surrogate marker:500 Date and Time for next Vancomycin Level to be drawn: Pharmacist Comments on Vancomycin Plan:WILL CHECK A RANDOM LEVEL AFTER 2 DOSES Vancomycin dosing will take advantage of [employer] as a clinical decision support tool that uses Bayesian modeling to calculate individual patient's pharmacokinetic parameters and forecast the patient's drug concentration time course with the target goal AUC 24 range of 400 - 600 mg/L/hr.
[2022-10-30] MEDS: Sodium Zirconium Cyclosilicate 10 GM POWD.PACK PO (18:17)
[2022-10-30 19:34] VITALS: BP 164/56; PULSE 63; RESP 18; TEMP 36.4; O2SAT 100
--- NOTE | 2022-10-30 20:33 | PHA.MEDREC ---
Pharmacy Consult ? Medication Reconciliation Pharmacy has completed the medication reconciliation. Spoke with pt. He stated he stopped his weekly kayexalate 2 saturdays ago because it caused too much diarrhea
[2022-10-30] MEDS: cefEPime HCl 2 GM in 0.9 % Sodium Chloride 50 ML IV (20:44)
[2022-10-30] MEDS: Heparin Sodium,Porcine 5,000 UNIT/ML VIAL 5000 UNIT SUBCUT (20:51)
--- NOTE | 2022-10-30 20:54 | PC.NURSE ---
PT SEGURA x3. Administered medications per MAR. Pt denies pain at this time.
[2022-10-30 20:58] LABS: Glucose, Whole Blood 102 mg/dL (60-115)
--- NOTE | 2022-10-30 22:14 | PC.NURSE ---
right lower leg wrapped in gauze pt has small amount of weeping clear. pt jairo well no complications.
[2022-10-30] MEDS: 0.9 % Sodium Chloride Flush 3 ML SYRINGE IVFLUSH (22:59)
[2022-10-30 23:04] LABS: Glucose, Whole Blood 87 mg/dL (60-115)
[2022-10-30] MEDS: Tamsulosin HCL 0.4 MG CAPSULE PO (23:05)
[2022-10-30 23:06] VITALS: BMI 24.5
[2022-10-30 23:09] VITALS: BP 150/76; PULSE 74; RESP 17; TEMP 36.2; O2SAT 96
[2022-10-31] MEDS: Acetaminophen 325 MG TABLET 650 MG PO (01:54)
[2022-10-31 03:40] VITALS: BP 124/60; PULSE 90; RESP 18; TEMP 37.1; O2SAT 99
[2022-10-31] MEDS: cefEPime HCl 2 GM in 0.9 % Sodium Chloride 50 ML IV ×2 (05:13→17:36)
[2022-10-31] MEDS: Omeprazole 20 MG CAPSULE.DR PO (05:13)
[2022-10-31] MEDS: oxyCODONE HCl Immed Release 5 MG TABLET PO ×2 (05:17→20:55)
[2022-10-31 06:09] LABS: MANUAL DIFF FLAG NO
[2022-10-31 06:26] LABS: Basophils Percent Auto 0.2 % (0-2); Eosinophils Absolute Auto 0.4 X10*3/uL (0.0-0.4); Eosinophils Percent Auto 3.4 % (0-4); Hematocrit 31.2 % (42.0-52.0); Hemoglobin 10.5 g/dl (14.0-18.0); Imm Gran Abs Auto 0.03 X10*3/uL (0.00-0.03); Imm Gran Pct Auto 0.3 % (0.0-0.4); Lymphocytes Absolute Auto 1.4 X10*3/uL (1.2-4.9); Mean Corpuscular HGB Conc 33.7 g/dl (31.0-36.0); Mean Corpuscular Hemoglobin 32.9 pg (27.0-33.0); Mean Corpuscular Volume 97.8 fL (80.0-98.0); Mean Platelet Volume 11.1 fL (9.4-12.4); Monocytes Absolute Auto 0.6 X10*3/uL (0.1-1.2); Monocytes Percent Auto 5.9 % (2-11); Neutrophils Absolute Auto 7.9 x10*3/uL (2.0-8.3); Neutrophils Percent Auto 76.2 % (45-73); Platelet Count 263 X10*3/uL (160-400); Red Blood Count 3.19 X10*6/uL (4.60-5.80); Red Cell Distribution Width 12.5 % (11.0-16.0); White Blood Count 10.3 X10*3/uL (4.8-10.8)
[2022-10-31 06:35] LABS: Anion Gap 16 (12-20); Blood Urea Nitrogen 52 mg/dL (9-16); Calcium 9.1 mg/dL (8.4-10.2); Carbon Dioxide 17 mmol/L (22-29); Chloride 111 mmol/L (96-108); Creatinine Clr Calc Pharmacy 39.1; Estimated Glomerular Filt Rate 46; Glucose Random 102 mg/dL (60-115); Sodium 139 mmol/L (135-145)
--- NOTE | 2022-10-31 07:50 | MHC.CM.PN ---
Addendum entered by Lorie Noriega RN 10/31/22 07:52: HCP ON FILE AND VERIFIED Original Note: PATIENT IS A READMIT HE WAS DISCHARGED ON PO LINEZOLID AND HAS [facility]. PATIENT REPORTS THAT THE [facility] RN CALLED AN AMBULANCE FOR HIM. CASE MANAGEMENT FOLLOWING FOR DISCHARGE NEEDS. IMM 10/31 IN CHART
[2022-10-31 07:51] LABS: Glucose, Whole Blood 86 mg/dL (60-115)
[2022-10-31] MEDS: Aspirin 81 MG TAB.CHEW PO (07:54)
[2022-10-31] MEDS: Heparin Sodium,Porcine 5,000 UNIT/ML VIAL 5000 UNIT SUBCUT ×2 (07:55→20:47)
[2022-10-31] MEDS: Clopidogrel Bisulfate 75 MG TABLET PO (07:55)
[2022-10-31] MEDS: Finasteride 5 MG TABLET PO (07:55)
[2022-10-31] MEDS: 0.9 % Sodium Chloride Flush 3 ML SYRINGE IVFLUSH ×3 (07:56→20:50)
[2022-10-31 08:00] VITALS: BP 137/63; PULSE 74; RESP 18; TEMP 36.3; O2SAT 99
--- NOTE | 2022-10-31 09:26 | HE.PHANOTE ---
Vancomycin Dosing Patient renal function is stable. Continue current regimen, vanco 1000 mg Q24H. Level schedule for 10/31 @ 1500. Estefany ButtD
[2022-10-31] MEDS: Multivitamin TABLET 1 TAB PO (11:50)
[2022-10-31 12:16] LABS: Glucose, Whole Blood 164 mg/dL (60-115)
[2022-10-31] MEDS: Insulin Lispro 100 UNIT/ML 3 ML VIAL SUBCUT (12:35)
--- NOTE | 2022-10-31 13:11 | PM.CNGS ---
History of Present Illness Consult details Consult date: 10/31/22 Narrative: 81-year-old gentleman well known to me with a history of peripheral vascular disease and nonhealing left great toe ulcer. Reports that he present to the hospital with increasing pain and concerned about his toe. He has had no other interval issues. He now presents to us for vascular follow-up evaluation. On 10/19/2022 he underwent left popliteal atherectomy and plasty. He reports he has been doing relatively well since that time. He reports that he had some left great toe pain. Review of Systems Review of Systems: Yes all other systems are reviewed and are negative Constitutional: Constitutional: Reports no additional constitutional complaints ENT: Reports Normal hearing present Cardiovascular: Cardiovascular: Denies chest pain, Denies chest pain at rest, Denies chest pain with activity and Denies pedal edema Respiratory: Respiratory: Denies cough Gastrointestinal: Gastrointestinal: Denies abdominal pain Musculoskeletal: Musculoskeletal: Denies abnormal gait, Denies muscle cramps and Denies radiating pain into limb Integumentary/Breasts: Skin/Breast: Denies skin ulcer and Denies wounds Neurologic: Reports Normal hearing present and Denies abnormal gait Psychiatric: Psychiatric: Reports no additional psychiatric complaints PMFSH Past Medical History Medical History (Updated 10/30/22 @ 17:58 by BRIGDI Mirza) Diabetes Hypertension PAD (peripheral artery disease) PSA (psoriatic arthritis) Skin ulcer of left great toe Type 2 diabetes mellitus Surgical History Surgical History (Updated 10/30/22 @ 17:50 by BRIGID Mirza) History of atherectomy Social History Social History Household Members: Children Household Members Other:: 1 Housing: House Do you presently have visiting nurse or other home services: Yes Alcohol intake: former Patient Tobacco Use Status: Never used Tobacco Tobacco use type: Cigarette Smoked in Last 30 Days: No e-Cigarette/Vaping Use: Never Used Patient Interested in Nicotine Replacement: No Patient Given Instructions on How to Stop Smoking: No Second Hand Smoke Exposure: No Use of substances other than those prescribed or required for medical reasons: No Currently Displaying Signs/Symptoms of Drug Intoxication Withdrawal: No Any prior treatment program specific to substance use: No Have you been hit, kicked, punched, or otherwise hurt by someone within the past year? If so, by whom?: No Do you feel safe in your current relationship?: Yes Is there a partner from a previous relationship who is making you feel unsafe now?: No Are you made to feel afraid or neglected: No Advance Directives: Yes Advance Directives on File: Yes Advance Directives Date on File: 10/10/22 Do you have thoughts of harming others: None Do you have a plan to hurt others: No Plan Recently lost weight without trying: No Eating poorly because of decreased appetite: No Nutrition Risks: No Nutritional Risk Poor oral hygiene: No service: No Current occupational status: retired [employer] Allergies Allergy/AdvReac Type Severity Reaction Status Date / Time clindamycin [From CLEOCIN] Allergy Severe BLACK STOOL Verified 10/17/22 16:57 Active Medications: Current Medications Acetaminophen (Acetaminophen 325 Mg Tablet) 650 mg PO Q6H PRN PRN Reason: Pain, Mild (Pain Scale 1-3) Last Admin: 10/31/22 01:54 Dose: 650 mg Aspirin (Aspirin 81 Mg Tab.Chew) 81 mg PO DAILY [facility] Last Admin: 10/31/22 07:54 Dose: 81 mg Atorvastatin Calcium (Atorvastatin Calcium 40 Mg Tablet) 40 mg PO MOTH@1800 [facility] Clopidogrel Bisulfate (Clopidogrel Bisulfate 75 Mg Tablet) 75 mg PO DAILY [facility] Last Admin: 10/31/22 07:55 Dose: 75 mg Dextrose (Dextrose 50 % 25 Gm/50 Ml Syringe) 25 gm IVPUSH Q15M PRN; Protocol PRN Reason: per Hypoglycemia Standing Ord. Finasteride (Finasteride 5 Mg Tablet) 5 mg PO DAILY [facility] Last Admin: 10/31/22 07:55 Dose: 5 mg Glucose (Glucose Gel 15 Gm Gel..Gram.) 15 gm PO Q15M PRN; Protocol PRN Reason: per Hypoglycemia Standing Ord. Heparin Sodium (Porcine) (Heparin Sodium,Porcine 5,000 Unit/Ml Vial) 5,000 unit SUBCUT Q12H [facility] Last Admin: 10/31/22 07:55 Dose: 5,000 unit Cefepime HCl 2 gm/ Sodium (Chloride) 50 mls @ 100 mls/hr IV Q12H [facility] Last Infusion: 10/31/22 05:47 Dose: Infused Vancomycin HCl 1,000 mg/ (Sodium Chloride) 270 mls @ 270 mls/hr IV Q24H [facility] Insulin Human Lispro (Insulin Lispro 100 Unit/Ml 3 Ml Vial) 0 unit SUBCUT QIDACHS [facility]; Protocol Last Admin: 10/31/22 12:35 Dose: 2 unit Lisinopril (Lisinopril 20 Mg Tablet) 20 mg PO DAILY [facility]; Protocol Morphine Sulfate (Morphine Sulfate 4 Mg/Ml Cartridge) 4 mg IVPUSH Q4H PRN; Protocol PRN Reason: Pain, Severe (Pain Scale 7-10) Multivitamins/Vitamin C (Multivitamin Tablet) 1 tab PO DAILY@1200 [facility] Last Admin: 10/31/22 11:50 Dose: 1 tab Non-Formulary Medication (Cyclosporine [Restasis]) 1 drop EYE-BOTH Q12H [facility] Omeprazole (Omeprazole 20 Mg Capsule.Dr) 20 mg PO DAILY@0630 [facility] Last Admin: 10/31/22 05:13 Dose: 20 mg Ondansetron HCl (Ondansetron Hcl 4 Mg/2 Ml Vial) 4 mg IVPUSH Q8H PRN PRN Reason: Nausea and Vomiting Oxycodone HCl (Oxycodone Hcl Immed Release 5 Mg Tablet) 5 mg PO Q6H PRN PRN Reason: Pain, Moderate (Pain Scale 4-6 Last Admin: 10/31/22 05:17 Dose: 5 mg Pharmacy Consult (Consult Rx Perform Med Rec) 1 each MISCELLANE ONCE PRN PRN Reason: Consult order Pharmacy Consult (Consult Rx Vancomycin Dosing) 1 each MISCELLANE DAILY PRN PRN Reason: Consult order Pharmacy Consult (Consult Rx Vancomycin Dosing) 1 each MISCELLANE DAILY PRN PRN Reason: Consult order Senna (Sennosides 8.6 Mg Tablet) 17.2 mg PO BEDTIME PRN PRN Reason: Constipation Sodium Chloride (0.9 % Sodium Chloride Flush 3 Ml Syringe) 3 ml IVFLUSH QSHIFT [facility] Last Admin: 10/31/22 07:56 Dose: 3 ml Tamsulosin HCl (Tamsulosin Hcl 0.4 Mg Capsule) 0.4 mg PO BEDTIME [facility] Last Admin: 10/30/22 23:05 Dose: 0.4 mg Home Medications Medication Instructions Recorded Confirmed Last Taken Type metformin 500 mg tablet 500 mg PO BID 06/30/20 10/30/22 10/30/22 History multivitamin 1 tab PO DAILY@1200 06/30/20 10/30/22 10/30/22 History omega-3 fatty acids 1,000 mg 1,000 mg PO DAILY@1200 06/30/20 10/30/22 10/30/22 History capsule omeprazole 20 mg tablet,delayed 20 mg PO DAILY@0630 06/30/20 10/30/22 10/30/22 History release arginine HCl (L-arginine) 1,000 mg 1,000 mg PO DAILY 10/10/22 10/30/22 10/30/22 History tablet atorvastatin 40 mg tablet 40 mg PO MOTH@1800 10/10/22 10/30/22 10/26/22 History cyclosporine 0.05 % eye drops in a 1 drp ophthalmic (eye) Q12H 10/10/22 10/30/22 10/30/22 History dropperette (Restasis) lisinopril 20 mg tablet 1 tab PO DAILY 10/10/22 10/30/22 10/30/22 History Physical Exam Vital Signs: Vital Signs: Last Vital Signs Temp 97.4 F 10/31/22 08:00 Pulse 74 10/31/22 08:00 Resp 18 10/31/22 08:00 BP 137/63 10/31/22 08:00 Pulse Ox 99 10/31/22 08:00 O2 Del Method 10/31/22 08:00 BMI result Body Mass Index 24.5 Const: General: cooperative, healthy appearing and comfortable Orientation/consciousness: oriented to person, oriented to place and oriented to time HEENT: Head: Yes normal to inspection Neck: Neck: Yes normal visual inspection Carotids: no bruits Chest: Chest palpation & inspection: normal inspection of the chest Resp: Effort & Inspection: normal respiratory effort and able to speak in complete sentences Auscultation: clear to auscultation bilaterally, no crackles, no rales, no rhonchi and no wheezes Cardio: Rate: regular rate Rhythm: regular rhythm Heart sounds: S1 normal heart sound present and S2 normal heart sound present Bruits: no carotid bruits Peripheral pulses: Peripheral pulses 2+ throughout GI: Inspection: Yes normal to inspection Skin: Other: Wounds: no wounds Hair: normal Neuro: General: oriented to person, oriented to place and oriented to time Cranial nerves: Yes CN's II-XII intact bilaterally and Yes Normal hearing present Cognition (Neuro): normal cognition Motor exam (neuro): 5/5 motor strength present throughout Extrem: Other: Left great toe superficial ulcer. Dry eschar removed. Minimal pain. General: No clubbing, No cyanosis and No edema Psych: Appearance: grossly normal Mental Status: mental status grossly normal Speech and movement: Normal speech and movement present Results Labs 10/31/22 05:18 10/31/22 05:18 Labs: Abnormal lab results 10/30/22 10/30/22 10/30/22 Range/Units 14:33 14:33 14:33 RBC 3.37 L (4.60-5.80) X10*6/uL Hgb 11.0 L (14.0-18.0) g/dl Hct 32.8 L (42.0-52.0) % Neut % (Auto) (45-73) % Lymph % (Auto) (20-40) % ESR 123 H (0-15) MM/HR Potassium 5.7 H D (3.3-5.1) mmol/L Chloride 111 H (96-108) mmol/L Carbon Dioxide 18 L (22-29) mmol/L BUN 55 H (9-16) mg/dL Creatinine 1.50 H (0.5-1.4) mg/dL POC Glucose (60-115) mg/dL 10/31/22 10/31/22 10/31/22 Range/Units 05:18 05:18 12:11 RBC 3.19 L (4.60-5.80) X10*6/uL Hgb 10.5 L (14.0-18.0) g/dl Hct 31.2 L (42.0-52.0) % Neut % (Auto) 76.2 H (45-73) % Lymph % (Auto) 14.0 L (20-40) % ESR (0-15) MM/HR Potassium (3.3-5.1) mmol/L Chloride 111 H (96-108) mmol/L Carbon Dioxide 17 L (22-29) mmol/L BUN 52 H (9-16) mg/dL Creatinine 1.48 H (0.5-1.4) mg/dL POC Glucose 164 H (60-115) mg/dL Short CBC 10/30/22 10/31/22 Range/Units 14:33 05:18 WBC 8.7 10.3 (4.8-10.8) X10*3/uL Hgb 11.0 L 10.5 L (14.0-18.0) g/dl Hct 32.8 L 31.2 L (42.0-52.0) % Plt Count 280 263 (160-400) X10*3/uL BMP 10/30/22 10/31/22 14:33 05:18 Sodium 139 139 Potassium 5.7 H D 5.0 Chloride 111 H 111 H Carbon Dioxide 18 L 17 L BUN 55 H 52 H Creatinine 1.50 H 1.48 H Calcium 9.4 D 9.1 All other labs normal. Assessment and Plan (1) PAD (peripheral artery disease): Status: Acute Plan In short nonhealing left great toe ulcer. It appears to be fairly superficial and unclear why he presented to the hospital. I did order repeat arterial status sting to ensure that it is supplied well. I would consider conservative measures as I do think the toe is salvageable. May benefit from wound care center evaluation for hyperbaric oxygen if truly underlying osteomyelitis. Continue local wound care. Will follow-up arterial testing. Thank you for allowing us to assist in his care. Time Spent With Patient Time: Total time managing care of this patient today ____ minutes. Procedures Date of Service Date of Service: 10/31/22
--- NOTE | 2022-10-31 15:20 | P.PNIM_ITS ---
Subjective Subjective Date of Service: 10/31/22 Interval History: Seen in follow up for osteomyelitis left great toe Interval history: No complaints, pain well controlled Review of Systems Review of Systems: Yes all other systems are reviewed and are negative Physical Exam Vital Signs: Vital Signs: Last Vital Signs Temp 97.4 F 10/31/22 08:00 Pulse 74 10/31/22 08:00 Resp 18 10/31/22 08:00 BP 137/63 10/31/22 08:00 Pulse Ox 99 10/31/22 08:00 O2 Del Method 10/31/22 08:00 BMI result Body Mass Index 24.5 Constitutional - Awake and Alert, No apparent distress Eyes - PERRLA, EOMI Cardiovascular - S1S2, RRR, No edema. Respiratory - Normal lung expansion, Normal respiratory effort, No respiratory distress, CTA bilaterally Gastrointestinal - NT / ND; +BS; No rebound or guarding Extremities - no calf tenderness bilaterally, no swelling. Superficial ulceration distal tip left great toe without drainage Skin - Warm/Dry Neurological - Alert & oriented x3 Psychological - Appropriate affect Objective Data Active Medications Acetaminophen (Acetaminophen 325 Mg Tablet) 650 mg PO Q6H PRN PRN Reason: Pain, Mild (Pain Scale 1-3) Last Admin: 10/31/22 01:54 Dose: 650 mg Documented By: JENNIFER Aspirin (Aspirin 81 Mg Tab.Chew) 81 mg PO DAILY [facility] Last Admin: 10/31/22 07:54 Dose: 81 mg Documented By: ELLEN Atorvastatin Calcium (Atorvastatin Calcium 40 Mg Tablet) 40 mg PO MOTH@1800 [facility] Clopidogrel Bisulfate (Clopidogrel Bisulfate 75 Mg Tablet) 75 mg PO DAILY [facility] Last Admin: 10/31/22 07:55 Dose: 75 mg Documented By: ELLEN Dextrose (Dextrose 50 % 25 Gm/50 Ml Syringe) 25 gm IVPUSH Q15M PRN; Protocol PRN Reason: per Hypoglycemia Standing Ord. Finasteride (Finasteride 5 Mg Tablet) 5 mg PO DAILY [facility] Last Admin: 10/31/22 07:55 Dose: 5 mg Documented By: ELLEN Glucose (Glucose Gel 15 Gm Gel..Gram.) 15 gm PO Q15M PRN; Protocol PRN Reason: per Hypoglycemia Standing Ord. Heparin Sodium (Porcine) (Heparin Sodium,Porcine 5,000 Unit/Ml Vial) 5,000 unit SUBCUT Q12H [facility] Last Admin: 10/31/22 07:55 Dose: 5,000 unit Documented By: ELLEN Cefepime HCl 2 gm/ Sodium (Chloride) 50 mls @ 100 mls/hr IV Q12H [facility] Last Infusion: 10/31/22 05:47 Dose: 0 mls/hr Documented By: EVELIN Vancomycin HCl 1,000 mg/ (Sodium Chloride) 270 mls @ 270 mls/hr IV Q24H [facility] Insulin Human Lispro (Insulin Lispro 100 Unit/Ml 3 Ml Vial) 0 unit SUBCUT QIDACHS [facility]; Protocol Last Admin: 10/31/22 12:35 Dose: 2 unit Documented By: ELLEN Lisinopril (Lisinopril 20 Mg Tablet) 20 mg PO DAILY [facility]; Protocol Morphine Sulfate (Morphine Sulfate 4 Mg/Ml Cartridge) 4 mg IVPUSH Q4H PRN; Protocol PRN Reason: Pain, Severe (Pain Scale 7-10) Multivitamins/Vitamin C (Multivitamin Tablet) 1 tab PO DAILY@1200 [facility] Last Admin: 10/31/22 11:50 Dose: 1 tab Documented By: ELLEN Non-Formulary Medication (Cyclosporine [Restasis]) 1 drop EYE-BOTH Q12H [facility] Omeprazole (Omeprazole 20 Mg Capsule.Dr) 20 mg PO DAILY@0630 [facility] Last Admin: 10/31/22 05:13 Dose: 20 mg Documented By: EVELIN Ondansetron HCl (Ondansetron Hcl 4 Mg/2 Ml Vial) 4 mg IVPUSH Q8H PRN PRN Reason: Nausea and Vomiting Oxycodone HCl (Oxycodone Hcl Immed Release 5 Mg Tablet) 5 mg PO Q6H PRN PRN Reason: Pain, Moderate (Pain Scale 4-6 Last Admin: 10/31/22 05:17 Dose: 5 mg Documented By: EVELIN Pharmacy Consult (Consult Rx Perform Med Rec) 1 each MISCELLANE ONCE PRN PRN Reason: Consult order Pharmacy Consult (Consult Rx Vancomycin Dosing) 1 each MISCELLANE DAILY PRN PRN Reason: Consult order Pharmacy Consult (Consult Rx Vancomycin Dosing) 1 each MISCELLANE DAILY PRN PRN Reason: Consult order Senna (Sennosides 8.6 Mg Tablet) 17.2 mg PO BEDTIME PRN PRN Reason: Constipation Sodium Chloride (0.9 % Sodium Chloride Flush 3 Ml Syringe) 3 ml IVFLUSH QSHIFT [facility] Last Admin: 10/31/22 07:56 Dose: 3 ml Documented By: ELLEN Tamsulosin HCl (Tamsulosin Hcl 0.4 Mg Capsule) 0.4 mg PO BEDTIME [facility] Last Admin: 10/30/22 23:05 Dose: 0.4 mg Documented By: OMARENOAL Labs 10/31/22 05:18 10/31/22 05:18 Labs: Laboratory Results - last 24 hr 10/30/22 10/30/22 10/30/22 14:33 14:33 17:40 MCV MCH MCHC RDW Plt Count MPV Immature Gran % (Auto) Neut % (Auto) Lymph % (Auto) Terry % (Auto) Eos % (Auto) Baso % (Auto) Lymph # (Auto) Terry # (Auto) Eos # (Auto) Baso # (Auto) Abs Immat Gran (auto) Absolute Neuts (auto) Absolute Nucleated RBC Nucleated RBC % (auto) ESR 123 H Anion Gap 16 Estim Creat Clear Calc 38.6 Estimated GFR 45 POC Glucose Random Glucose 83 Calcium 9.4 D C-Reactive Protein 0.26 COVID-19 ([facility]) Negative COVID-19 Clin Com See Note 10/30/22 10/30/22 10/31/22 20:49 22:58 05:18 MCV 97.8 MCH 32.9 MCHC 33.7 RDW 12.5 Plt Count 263 MPV 11.1 Immature Gran % (Auto) 0.3 Neut % (Auto) 76.2 H Lymph % (Auto) 14.0 L Terry % (Auto) 5.9 Eos % (Auto) 3.4 Baso % (Auto) 0.2 Lymph # (Auto) 1.4 Terry # (Auto) 0.6 Eos # (Auto) 0.4 Baso # (Auto) 0.0 Abs Immat Gran (auto) 0.03 Absolute Neuts (auto) 7.9 Absolute Nucleated RBC 0.000 Nucleated RBC % (auto) 0.0 ESR Anion Gap Estim Creat Clear Calc Estimated GFR POC Glucose 102 87 Random Glucose Calcium C-Reactive Protein COVID-19 ([facility]) COVID-19 Clin Com 10/31/22 10/31/22 10/31/22 05:18 07:44 12:11 MCV MCH MCHC RDW Plt Count MPV Immature Gran % (Auto) Neut % (Auto) Lymph % (Auto) Terry % (Auto) Eos % (Auto) Baso % (Auto) Lymph # (Auto) Terry # (Auto) Eos # (Auto) Baso # (Auto) Abs Immat Gran (auto) Absolute Neuts (auto) Absolute Nucleated RBC Nucleated RBC % (auto) ESR Anion Gap 16 Estim Creat Clear Calc 39.1 Estimated GFR 46 POC Glucose 86 164 H Random Glucose 102 Calcium 9.1 C-Reactive Protein COVID-19 ([facility]) COVID-19 Clin Com Assessment and Plan (1) Osteomyelitis: Status: Acute (2) PAD (peripheral artery disease): Status: Acute Plan 81-year-old male with history of controlled type 2 diabetes last A1c 6.8% with diabetic neuropathy, peripheral artery disease, occassional cigar smoker, former cigarette smoker, hyperlipidemia, and hypertension presented to the ED earlier today for evaluation of pain in the left great toe. The patient was recently admitted 10/10- for osteomyelitis of the left great toe initially treated with vanco and cefepime with ID recommending 6 weeks IV ertapenam. However, pt insurance would not cover this so 6 weeks of linezolid was recommended which he has been taking as prescribed. He is admitted for osteomyelitis left great toe having failed outpt PO antibiotics. #Osteomylelitis Left great toe -XR showing progressive bone destruction distal and proximal phalynx.? ESR 123 -Treated with IV vanco and cefepime during recent admission, discharged on PO linezolid as insurance did not cover IV ertapenem -underwent revascularization with Dr. Gallegos during last admission -Per vascular surgery, no further intervention needed. Great toe can be salvaged -ID consult placed -treat with IV vanco and cefepime for now #Stage 2 ulcer distal great toe r/t PAD- present on arrival -Treat osteomyelitis as above #Controlled type 2 diabetes- last A1c 6.8% -POC glucose -Diabetic diet -Humalog on SS, hold metformin #HTN -continue home meds #PAD -continue statin, asa/plavix DVT prophylaxis-heparin Full code Patient requires ongoing inpatient stay for further management of osteomyelitis of left great toe requiring IV antibiotics, expert consultation, and PICC line placement Time Spent With Patient Time: Total time managing care of this patient today ____ minutes. Quality Stroke Does the patient have a stroke diagnosis?: No VTE Prior VTE?: No VTE Risk Level:: Medical - moderate - high VTE Device Contraindication: Treatment Not Indicated VTE Drug Contraindication: N/A - Med Ordered
[2022-10-31 15:58] VITALS: BP 118/57; PULSE 76; RESP 17; TEMP 36.9; O2SAT 100
[2022-10-31 16:36] LABS: Glucose, Whole Blood 86 mg/dL (60-115)
[2022-10-31] MEDS: vancomycin HCL 1,000 MG in 0.9 % Sodium Chloride 250 ML 270 MG IV (17:19)
[2022-10-31 20:00] VITALS: BP 150/67; PULSE 70; RESP 18; TEMP 36.4; O2SAT 99
[2022-10-31] MEDS: Tamsulosin HCL 0.4 MG CAPSULE PO (20:47)
[2022-10-31 20:57] LABS: Glucose, Whole Blood 128 mg/dL (60-115)
[2022-11-01 03:40] VITALS: BP 110/55; PULSE 90; RESP 18; TEMP 36.7; O2SAT 98
[2022-11-01] MEDS: Omeprazole 20 MG CAPSULE.DR PO (05:25)
[2022-11-01] MEDS: cefEPime HCl 2 GM in 0.9 % Sodium Chloride 50 ML IV ×2 (05:25→18:01)
[2022-11-01 06:23] LABS: MANUAL DIFF FLAG NO
[2022-11-01 06:30] LABS: Basophils Percent Auto 0.3 % (0-2); Eosinophils Absolute Auto 0.3 X10*3/uL (0.0-0.4); Eosinophils Percent Auto 4.2 % (0-4); Hematocrit 31.6 % (42.0-52.0); Hemoglobin 10.2 g/dl (14.0-18.0); Imm Gran Abs Auto 0.01 X10*3/uL (0.00-0.03); Imm Gran Pct Auto 0.1 % (0.0-0.4); Lymphocytes Absolute Auto 1.9 X10*3/uL (1.2-4.9); Lymphocytes Percent Auto 25.4 % (20-40); Mean Corpuscular HGB Conc 32.3 g/dl (31.0-36.0); Mean Corpuscular Volume 99.1 fL (80.0-98.0); Mean Platelet Volume 11.3 fL (9.4-12.4); Monocytes Absolute Auto 0.9 X10*3/uL (0.1-1.2); Monocytes Percent Auto 11.3 % (2-11); Neutrophils Absolute Auto 4.4 x10*3/uL (2.0-8.3); Neutrophils Percent Auto 58.7 % (45-73); Platelet Count 211 X10*3/uL (160-400); Red Blood Count 3.19 X10*6/uL (4.60-5.80); Red Cell Distribution Width 12.6 % (11.0-16.0); White Blood Count 7.5 X10*3/uL (4.8-10.8)
[2022-11-01 07:03] LABS: Anion Gap 17 (12-20); Blood Urea Nitrogen 49 mg/dL (9-16); Calcium 9.2 mg/dL (8.4-10.2); Carbon Dioxide 17 mmol/L (22-29); Chloride 112 mmol/L (96-108); Creatinine Clr Calc Pharmacy 40.5; Estimated Glomerular Filt Rate 48; Glucose Random 88 mg/dL (60-115); Potassium 4.7 mmol/L (3.3-5.1); Sodium 141 mmol/L (135-145)
[2022-11-01 07:08] VITALS: BP 119/56; PULSE 80; RESP 18; TEMP 36.6; O2SAT 99
[2022-11-01 07:32] LABS: Glucose, Whole Blood 96 mg/dL (60-115)
[2022-11-01] MEDS: Clopidogrel Bisulfate 75 MG TABLET PO (08:38)
[2022-11-01] MEDS: oxyCODONE HCl Immed Release 5 MG TABLET PO ×2 (08:38→16:52)
[2022-11-01] MEDS: Aspirin 81 MG TAB.CHEW PO (08:38)
[2022-11-01] MEDS: Finasteride 5 MG TABLET PO (08:39)
[2022-11-01] MEDS: 0.9 % Sodium Chloride Flush 3 ML SYRINGE IVFLUSH ×2 (08:39→16:39)
[2022-11-01] MEDS: lisinopriL 20 MG TABLET PO (08:39)
[2022-11-01 11:13] LABS: Glucose, Whole Blood 199 mg/dL (60-115)
[2022-11-01] MEDS: Insulin Lispro 100 UNIT/ML 3 ML VIAL SUBCUT ×2 (12:22→21:33)
[2022-11-01] MEDS: Multivitamin TABLET 1 TAB PO (12:22)
--- NOTE | 2022-11-01 12:55 | MHC.CM.PN ---
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 CM MET W/PT TO DISCUSS DISPO AND SNF PREFERENCES AND PT REPORTS HE WOULD PREFER TO STAY IN [place] TWO OF HIS CHILDREN LIVE IN [place], PER PT ONE OF HIS KIDS LIVES NEAR [place] AND THOSE WOULD BE TOP TWO CHOICES. REFERRAL PLACED TO [place] SN[facility]. PER HOSPITALIST PT MAY BE CLEARED FOR D/C TOMORROW, PLAN FOR PICC TOMORROW, FINAL ABX PENDING, CM WILL CONT TO FOLLOW.
--- NOTE | 2022-11-01 14:47 | HO.PM.IMPN ---
Subjective Subjective Date of Service: 11/01/22 Interval History: Seen in follow up for osteomyelitis left great toe Interval history: No complaints, pain well controlled Review of Systems Review of Systems: Yes all other systems are reviewed and are negative Physical Exam Vital Signs: Vital Signs: Last Vital Signs Temp 97.8 F 11/01/22 07:08 Pulse 80 11/01/22 07:08 Resp 18 11/01/22 07:08 BP 119/56 L 11/01/22 07:08 Pulse Ox 99 11/01/22 07:08 O2 Del Method 11/01/22 07:08 BMI result Body Mass Index 24.5 Constitutional - Awake and Alert, No apparent distress Eyes - PERRLA, EOMI Cardiovascular - S1S2, RRR, No edema. Respiratory - Normal lung expansion, Normal respiratory effort, No respiratory distress, CTA bilaterally Gastrointestinal - NT / ND; +BS; No rebound or guarding Extremities - no calf tenderness bilaterally, no swelling. Superficial ulceration distal tip left great toe without drainage covered with dry foam bandage Skin - Warm/Dry Neurological - Alert & oriented x3 Psychological - Appropriate affect Objective Data Active Medications Acetaminophen (Acetaminophen 325 Mg Tablet) 650 mg PO Q6H PRN PRN Reason: Pain, Mild (Pain Scale 1-3) Last Admin: 10/31/22 01:54 Dose: 650 mg Documented By: JENNIFER Aspirin (Aspirin 81 Mg Tab.Chew) 81 mg PO DAILY [facility] Last Admin: 11/01/22 08:38 Dose: 81 mg Documented By: LIBBY Atorvastatin Calcium (Atorvastatin Calcium 40 Mg Tablet) 40 mg PO MOTH@1800 [facility] Clopidogrel Bisulfate (Clopidogrel Bisulfate 75 Mg Tablet) 75 mg PO DAILY [facility] Last Admin: 11/01/22 08:38 Dose: 75 mg Documented By: LIBBY Dextrose (Dextrose 50 % 25 Gm/50 Ml Syringe) 25 gm IVPUSH Q15M PRN; Protocol PRN Reason: per Hypoglycemia Standing Ord. Finasteride (Finasteride 5 Mg Tablet) 5 mg PO DAILY [facility] Last Admin: 11/01/22 08:39 Dose: 5 mg Documented By: LIBBY Glucose (Glucose Gel 15 Gm Gel..Gram.) 15 gm PO Q15M PRN; Protocol PRN Reason: per Hypoglycemia Standing Ord. Heparin Sodium (Porcine) (Heparin Sodium,Porcine 5,000 Unit/Ml Vial) 5,000 unit SUBCUT Q12H [facility] Last Admin: 11/01/22 08:42 Dose: Not Given Documented By: LIBBY Non-Admin Reason: Patient Refused Cefepime HCl 2 gm/ Sodium (Chloride) 50 mls @ 100 mls/hr IV Q12H [facility] Last Infusion: 11/01/22 06:05 Dose: 0 mls/hr Documented By: TAWNYA Vancomycin HCl 1,000 mg/ (Sodium Chloride) 270 mls @ 270 mls/hr IV Q24H [facility] Last Infusion: 10/31/22 18:22 Dose: 270 mls/hr Documented By: LUIS A-PRINCESS Insulin Human Lispro (Insulin Lispro 100 Unit/Ml 3 Ml Vial) 0 unit SUBCUT QIDACHS [facility]; Protocol Last Admin: 11/01/22 12:22 Dose: 2 unit Documented By: LIBBY Lisinopril (Lisinopril 20 Mg Tablet) 20 mg PO DAILY [facility]; Protocol Last Admin: 11/01/22 08:39 Dose: 20 mg Documented By: LIBBY Morphine Sulfate (Morphine Sulfate 4 Mg/Ml Cartridge) 4 mg IVPUSH Q4H PRN; Protocol PRN Reason: Pain, Severe (Pain Scale 7-10) Multivitamins/Vitamin C (Multivitamin Tablet) 1 tab PO DAILY@1200 [facility] Last Admin: 11/01/22 12:22 Dose: 1 tab Documented By: LIBBY Non-Formulary Medication (Cyclosporine [Restasis]) 1 drop EYE-BOTH Q12H [facility] Omeprazole (Omeprazole 20 Mg Capsule.Dr) 20 mg PO DAILY@0630 [facility] Last Admin: 11/01/22 05:25 Dose: 20 mg Documented By: TAWNYA Ondansetron HCl (Ondansetron Hcl 4 Mg/2 Ml Vial) 4 mg IVPUSH Q8H PRN PRN Reason: Nausea and Vomiting Oxycodone HCl (Oxycodone Hcl Immed Release 5 Mg Tablet) 5 mg PO Q6H PRN PRN Reason: Pain, Moderate (Pain Scale 4-6 Last Admin: 11/01/22 08:38 Dose: 5 mg Documented By: LIBBY Pharmacy Consult (Consult Rx Perform Med Rec) 1 each MISCELLANE ONCE PRN PRN Reason: Consult order Pharmacy Consult (Consult Rx Vancomycin Dosing) 1 each MISCELLANE DAILY PRN PRN Reason: Consult order Pharmacy Consult (Consult Rx Vancomycin Dosing) 1 each MISCELLANE DAILY PRN PRN Reason: Consult order Senna (Sennosides 8.6 Mg Tablet) 17.2 mg PO BEDTIME PRN PRN Reason: Constipation Sodium Chloride (0.9 % Sodium Chloride Flush 3 Ml Syringe) 3 ml IVFLUSH QSHIFT [facility] Last Admin: 11/01/22 08:39 Dose: 3 ml Documented By: LIBBY Tamsulosin HCl (Tamsulosin Hcl 0.4 Mg Capsule) 0.4 mg PO BEDTIME [facility] Last Admin: 10/31/22 20:47 Dose: 0.4 mg Documented By: TAWNYA Labs 11/01/22 05:24 11/01/22 05:24 Labs: Laboratory Results - last 24 hr 10/31/22 10/31/22 11/01/22 16:11 20:43 05:24 MCV MCH MCHC RDW Plt Count MPV Immature Gran % (Auto) Neut % (Auto) Lymph % (Auto) [place] % (Auto) Eos % (Auto) Baso % (Auto) Lymph # (Auto) [place] # (Auto) Eos # (Auto) Baso # (Auto) Abs Immat Gran (auto) Absolute Neuts (auto) Absolute Nucleated RBC Nucleated RBC % (auto) Anion Gap 17 Estim Creat Clear Calc 40.5 Estimated GFR 48 POC Glucose 86 128 H Random Glucose 88 Calcium 9.2 11/01/22 11/01/22 11/01/22 05:24 07:08 11:10 MCV 99.1 H MCH 32.0 MCHC 32.3 RDW 12.6 Plt Count 211 MPV 11.3 Immature Gran % (Auto) 0.1 Neut % (Auto) 58.7 Lymph % (Auto) 25.4 [place] % (Auto) 11.3 H Eos % (Auto) 4.2 H Baso % (Auto) 0.3 Lymph # (Auto) 1.9 [place] # (Auto) 0.9 Eos # (Auto) 0.3 Baso # (Auto) 0.0 Abs Immat Gran (auto) 0.01 Absolute Neuts (auto) 4.4 Absolute Nucleated RBC 0.000 Nucleated RBC % (auto) 0.0 Anion Gap Estim Creat Clear Calc Estimated GFR POC Glucose 96 199 H Random Glucose Calcium Microbiology Microbiology Results: Microbiology 10/30/22 14:33 Blood Culture - Preliminary Blood - Venous No growth after 24 hours. 10/30/22 14:33 Blood Culture - Preliminary Blood - Venous No growth after 24 hours. Assessment and Plan (1) Osteomyelitis: Status: Acute (2) PAD (peripheral artery disease): Status: Acute Plan 81-year-old male with history of controlled type 2 diabetes last A1c 6.8% with diabetic neuropathy, peripheral artery disease, occassional cigar smoker, former cigarette smoker, hyperlipidemia, and hypertension presented to the ED earlier today for evaluation of pain in the left great toe. The patient was recently admitted 10/10- for osteomyelitis of the left great toe initially treated with vanco and cefepime with ID recommending 6 weeks IV ertapenam. However, pt insurance would not cover this so 6 weeks of linezolid was recommended which he has been taking as prescribed. He is admitted for osteomyelitis left great toe having failed outpt PO antibiotics. #Osteomylelitis Left great toe -XR showing progressive bone destruction distal and proximal phalynx.? ESR 123 -Continue IV vanco and cefepime -BC neg so far. PICC line placement after 48hrs neg results -Per vascular surgery, no further intervention needed. Great toe can be salvaged -Appreciate ID input -Follow cultures #Stage 2 ulcer distal great toe r/t PAD- present on arrival -Treat osteomyelitis as above -Dressing changes #Controlled type 2 diabetes- last A1c 6.8% -POC glucose -Diabetic diet -Humalog on SS, hold metformin #HTN -continue home meds #PAD -continue statin, asa/plavix DVT prophylaxis-heparin Full code Patient requires ongoing inpatient stay for further management of osteomyelitis of left great toe requiring IV antibiotics, expert consultation, and PICC line placement Time Spent With Patient Time: Total time managing care of this patient today ____ minutes. Quality Stroke Does the patient have a stroke diagnosis?: No VTE Prior VTE?: No VTE Risk Level:: Medical - moderate - high VTE Device Contraindication: Treatment Not Indicated VTE Drug Contraindication: N/A - Med Ordered
--- NOTE | 2022-11-01 15:24 | W.PM.IDCN ---
History of Present Illness Data of Consult Service Date: 11/01/22 Requesting physician: Manjula Lora Primary Care Provider: Omi Farrar MD HPI Reason for consult: osteomyelitis He presents to ER with left foot pain and swelling and red and blue toe. He had been hospitalized 10/10-10/21 with left great toe osteomyelitis . He declined IV due to insurance concerns and left with po linezolid for six weeks. He has had worsening I saw him on 10/16 and he declined IV Ertapenem for six weeks because insurance didnt cover and he was aware po was not as good option. He has no organism and IV antibiotics have worked for him in past. Review of Systems Review of Systems: Yes all other systems are reviewed and are negative PMFSH Past Medical History Medical History Diabetes Hypertension PAD (peripheral artery disease) PSA (psoriatic arthritis) Skin ulcer of left great toe Type 2 diabetes mellitus Family History Family history: reviewed and not pertinent Surgical History Surgical History History of atherectomy Social History Social History Household Members: Children Household Members Other:: 1 Housing: House Do you presently have visiting nurse or other home services: Yes Alcohol intake: former Patient Tobacco Use Status: Never used Tobacco Tobacco use type: Cigarette Smoked in Last 30 Days: No e-Cigarette/Vaping Use: Never Used Patient Interested in Nicotine Replacement: No Patient Given Instructions on How to Stop Smoking: No Second Hand Smoke Exposure: No Use of substances other than those prescribed or required for medical reasons: No Currently Displaying Signs/Symptoms of Drug Intoxication Withdrawal: No Any prior treatment program specific to substance use: No Have you been hit, kicked, punched, or otherwise hurt by someone within the past year? If so, by whom?: No Do you feel safe in your current relationship?: Yes Is there a partner from a previous relationship who is making you feel unsafe now?: No Are you made to feel afraid or neglected: No Advance Directives: Yes Advance Directives on File: Yes Advance Directives Date on File: 10/10/22 Do you have thoughts of harming others: None Do you have a plan to hurt others: No Plan Recently lost weight without trying: No Eating poorly because of decreased appetite: No Nutrition Risks: No Nutritional Risk Poor oral hygiene: No service: No Current occupational status: retired Meds Allergies Allergy/AdvReac Type Severity Reaction Status Date / Time clindamycin [From CLEOCIN] Allergy Severe BLACK STOOL Verified 10/17/22 16:57 Active Medications: Current Medications Acetaminophen (Acetaminophen 325 Mg Tablet) 650 mg PO Q6H PRN PRN Reason: Pain, Mild (Pain Scale 1-3) Last Admin: 10/31/22 01:54 Dose: 650 mg Aspirin (Aspirin 81 Mg Tab.Chew) 81 mg PO DAILY [facility] Last Admin: 11/01/22 08:38 Dose: 81 mg Atorvastatin Calcium (Atorvastatin Calcium 40 Mg Tablet) 40 mg PO MOTH@1800 [facility] Clopidogrel Bisulfate (Clopidogrel Bisulfate 75 Mg Tablet) 75 mg PO DAILY [facility] Last Admin: 11/01/22 08:38 Dose: 75 mg Dextrose (Dextrose 50 % 25 Gm/50 Ml Syringe) 25 gm IVPUSH Q15M PRN; Protocol PRN Reason: per Hypoglycemia Standing Ord. Finasteride (Finasteride 5 Mg Tablet) 5 mg PO DAILY [facility] Last Admin: 11/01/22 08:39 Dose: 5 mg Glucose (Glucose Gel 15 Gm Gel..Gram.) 15 gm PO Q15M PRN; Protocol PRN Reason: per Hypoglycemia Standing Ord. Heparin Sodium (Porcine) (Heparin Sodium,Porcine 5,000 Unit/Ml Vial) 5,000 unit SUBCUT Q12H [facility] Last Admin: 11/01/22 08:42 Dose: Not Given Cefepime HCl 2 gm/ Sodium (Chloride) 50 mls @ 100 mls/hr IV Q12H [facility] Last Infusion: 11/01/22 06:05 Dose: Infused Vancomycin HCl 1,000 mg/ (Sodium Chloride) 270 mls @ 270 mls/hr IV Q24H [facility] Last Infusion: 10/31/22 18:22 Dose: Infused Insulin Human Lispro (Insulin Lispro 100 Unit/Ml 3 Ml Vial) 0 unit SUBCUT QIDACHS [facility]; Protocol Last Admin: 11/01/22 12:22 Dose: 2 unit Lisinopril (Lisinopril 20 Mg Tablet) 20 mg PO DAILY [facility]; Protocol Last Admin: 11/01/22 08:39 Dose: 20 mg Morphine Sulfate (Morphine Sulfate 4 Mg/Ml Cartridge) 4 mg IVPUSH Q4H PRN; Protocol PRN Reason: Pain, Severe (Pain Scale 7-10) Multivitamins/Vitamin C (Multivitamin Tablet) 1 tab PO DAILY@1200 [facility] Last Admin: 11/01/22 12:22 Dose: 1 tab Non-Formulary Medication (Cyclosporine [Restasis]) 1 drop EYE-BOTH Q12H [facility] Omeprazole (Omeprazole 20 Mg Capsule.) 20 mg PO DAILY@0630 [facility] Last Admin: 11/01/22 05:25 Dose: 20 mg Ondansetron HCl (Ondansetron Hcl 4 Mg/2 Ml Vial) 4 mg IVPUSH Q8H PRN PRN Reason: Nausea and Vomiting Oxycodone HCl (Oxycodone Hcl Immed Release 5 Mg Tablet) 5 mg PO Q6H PRN PRN Reason: Pain, Moderate (Pain Scale 4-6 Last Admin: 11/01/22 08:38 Dose: 5 mg Pharmacy Consult (Consult Rx Perform Med Rec) 1 each MISCELLANE ONCE PRN PRN Reason: Consult order Pharmacy Consult (Consult Rx Vancomycin Dosing) 1 each MISCELLANE DAILY PRN PRN Reason: Consult order Pharmacy Consult (Consult Rx Vancomycin Dosing) 1 each MISCELLANE DAILY PRN PRN Reason: Consult order Senna (Sennosides 8.6 Mg Tablet) 17.2 mg PO BEDTIME PRN PRN Reason: Constipation Sodium Chloride (0.9 % Sodium Chloride Flush 3 Ml Syringe) 3 ml IVFLUSH QSHIFT [facility] Last Admin: 11/01/22 08:39 Dose: 3 ml Tamsulosin HCl (Tamsulosin Hcl 0.4 Mg Capsule) 0.4 mg PO BEDTIME [facility] Last Admin: 10/31/22 20:47 Dose: 0.4 mg Home Medications Medication Instructions Recorded Confirmed Last Taken Type metformin 500 mg tablet 500 mg PO BID 06/30/20 10/30/22 10/30/22 History multivitamin 1 tab PO DAILY@119906/30/20 10/30/22 10/30/22 History omega-3 fatty acids 1,000 mg 1,000 mg PO DAILY@119906/30/20 10/30/22 10/30/22 History capsule omeprazole 20 mg tablet,delayed 20 mg PO DAILY@0606/30/20 10/30/22 10/30/22 History release arginine HCl (L-arginine) 1,000 mg 1,000 mg PO DAILY 10/10/22 10/30/22 10/30/22 History tablet atorvastatin 40 mg tablet 40 mg PO MOTH@1800 10/10/22 10/30/22 10/26/22 History cyclosporine 0.05 % eye drops in a 1 drp ophthalmic (eye) Q12H 10/10/22 10/30/22 10/30/22 History dropperette (Restasis) lisinopril 20 mg tablet 1 tab PO DAILY 10/10/22 10/30/22 10/30/22 History Physical Exam Vital Signs: Vital Signs: Last Vital Signs Temp 97.8 F 11/01/22 07:08 Pulse 80 11/01/22 07:08 Resp 18 11/01/22 07:08 BP 119/56 L 11/01/22 07:08 Pulse Ox 99 11/01/22 07:08 O2 Del Method 11/01/22 07:08 BMI result Body Mass Index 24.5 Const: General: cooperative HEENT: Head: Yes normal to inspection Face and sinus: Yes normal facial exam Mouth: Normal oral and palatal mucosa present Teeth and gingiva: dentition normal Eyes: General: appearance normal, both eyes and all related structures Pupils: Equal, round and reactive pupils present Resp: Effort & Inspection: normal respiratory effort Cardio: Rate: regular rate Rhythm: regular rhythm GI: Palpation (GI): Soft to palpation and nontender : General: Yes no CVA tenderness Back/Spine/Pelvis: Back: no CVA tenderness Skin: General skin exam: no rashes or lesions noted Neuro: General: moves all extremities Cranial nerves: Yes Equal, round and reactive pupils present Extrem: Other: red blue foot discoloration left great toe area nail is serous drainage neuropathy Psych: Appearance: grossly normal Results Labs 11/01/22 05:24 11/01/22 05:24 Labs: Short CBC 11/01/22 Range/Units 05:24 WBC 7.5 (4.8-10.8) X10*3/uL Hgb 10.2 L (14.0-18.0) g/dl Hct 31.6 L (42.0-52.0) % Plt Count 211 (160-400) X10*3/uL BMP 11/01/22 05:24 Sodium 141 Potassium 4.7 Chloride 112 H Carbon Dioxide 17 L BUN 49 H Creatinine 1.43 H Calcium 9.2 Microbiology Microbiology Results: Microbiology 10/30/22 14:33 Blood - Venous Blood Culture - Preliminary No growth after 24 hours. 10/30/22 14:33 Blood - Venous Blood Culture - Preliminary No growth after 24 hours. Assessment and Plan (1) Osteomyelitis: Status: Acute He has no specific organisms isolated He has some chance of saving toe although not curable if takes IV antibiotics for six weeks. Plan IV Ertapenem 1 g daily for six weeks. Weekly CBC,creatinine,SGOT Follow Vascular and amputation if not improving. Time Spent With Patient Time: Total time managing care of this patient today ____ minutes.
[2022-11-01 16:00] VITALS: BP 130/61; PULSE 68; RESP 18; TEMP 36.1; O2SAT 100
[2022-11-01 16:00] LABS: Vancomycin Random 17.8 mcg/mL (15-20)
--- NOTE | 2022-11-01 16:18 | HE.PHANOTE ---
Vancomcyin Dosing Addendum Patients level is at 17.8 mg/L. Decreased dose to 750 mg Q24H. predicted AUC 451 mg/L/hr.
[2022-11-01] MEDS: vancomycin HCL 750 MG in 0.9 % Sodium Chloride 250 ML 265 MG IV (16:40)
[2022-11-01 16:41] LABS: Glucose, Whole Blood 80 mg/dL (60-115)
[2022-11-01 20:00] VITALS: BP 143/65; PULSE 73; RESP 18; TEMP 36.8; O2SAT 100
[2022-11-01 20:11] LABS: Glucose, Whole Blood 206 mg/dL (60-115)
[2022-11-01] MEDS: Heparin Sodium,Porcine 5,000 UNIT/ML VIAL 5000 UNIT SUBCUT (21:32)
[2022-11-01] MEDS: Tamsulosin HCL 0.4 MG CAPSULE PO (21:33)
[2022-11-01] MEDS: Acetaminophen 325 MG TABLET 650 MG PO (21:49)
[2022-11-02] MEDS: oxyCODONE HCl Immed Release 5 MG TABLET PO ×2 (00:43→20:08)
[2022-11-02 04:00] VITALS: BP 145/70; PULSE 80; RESP 16; TEMP 36.2; O2SAT 98
[2022-11-02] MEDS: cefEPime HCl 2 GM in 0.9 % Sodium Chloride 50 ML IV ×2 (05:39→17:58)
[2022-11-02] MEDS: Omeprazole 20 MG CAPSULE.DR PO (05:40)
[2022-11-02 06:19] VITALS: RESP 19
[2022-11-02] MEDS: Morphine Sulfate 4 MG/ML CARTRIDGE IVPUSH (06:19)
[2022-11-02 06:58] LABS: Anion Gap 16 (12-20); Blood Urea Nitrogen 53 mg/dL (9-16); Calcium 8.9 mg/dL (8.4-10.2); Carbon Dioxide 17 mmol/L (22-29); Chloride 111 mmol/L (96-108); Creatinine Clr Calc Pharmacy 41.6; Estimated Glomerular Filt Rate 49; Glucose Random 85 mg/dL (60-115); Potassium 4.7 mmol/L (3.3-5.1); Sodium 139 mmol/L (135-145)
[2022-11-02 07:10] VITALS: BP 145/70; PULSE 68; RESP 18; TEMP 36.1; O2SAT 100
[2022-11-02 07:17] LABS: Glucose, Whole Blood 90 mg/dL (60-115)
[2022-11-02] MEDS: Heparin Sodium,Porcine 5,000 UNIT/ML VIAL 5000 UNIT SUBCUT ×2 (07:31→20:08)
[2022-11-02] MEDS: 0.9 % Sodium Chloride Flush 3 ML SYRINGE IVFLUSH ×3 (07:31→20:08)
[2022-11-02] MEDS: Clopidogrel Bisulfate 75 MG TABLET PO (07:31)
[2022-11-02] MEDS: lisinopriL 20 MG TABLET PO (07:31)
[2022-11-02] MEDS: Aspirin 81 MG TAB.CHEW PO (07:32)
[2022-11-02] MEDS: Finasteride 5 MG TABLET PO (07:32)
--- NOTE | 2022-11-02 08:03 | HE.PHANOTE ---
Vancomycin Dosing Renal function has slightly improvent daily. Continue current regimen vanco 750 mg Q24H, expected ACU 434 with a trough of 13.8. Level due 11/03 @ 1500. Latanya Portillo, EstefanyD
--- NOTE | 2022-11-02 09:18 | P.PNIM_ITS ---
Subjective Subjective Date of Service: 11/02/22 Interval History: Seen in follow up for osteomyelitis left great toe Interval history: No complaints, pain well controlled Physical Exam Vital Signs: Vital Signs: Last Vital Signs Temp 97 F 11/02/22 07:10 Pulse 68 11/02/22 07:10 Resp 18 11/02/22 07:10 BP 145/70 H 11/02/22 07:10 Pulse Ox 100 11/02/22 07:10 O2 Del Method 11/02/22 07:10 BMI result Body Mass Index 24.5 Const: Other: General: AO X 3, no acute distress Resp: CTA bilateral CVS: S1,S2,RRR GI: +BS, NT, no distention Skin: see picture Neuro: motor grossly intact Psych: appropriate affect Skin: Other: Objective Data Active Medications Acetaminophen (Acetaminophen 325 Mg Tablet) 650 mg PO Q6H PRN PRN Reason: Pain, Mild (Pain Scale 1-3) Last Admin: 11/01/22 21:49 Dose: 650 mg Documented By: BULMARO Aspirin (Aspirin 81 Mg Tab.Chew) 81 mg PO DAILY [facility] Last Admin: 11/02/22 07:32 Dose: 81 mg Documented By: PERICO Atorvastatin Calcium (Atorvastatin Calcium 40 Mg Tablet) 40 mg PO MOTH@1800 [facility] Clopidogrel Bisulfate (Clopidogrel Bisulfate 75 Mg Tablet) 75 mg PO DAILY [facility] Last Admin: 11/02/22 07:31 Dose: 75 mg Documented By: PERICO Dextrose (Dextrose 50 % 25 Gm/50 Ml Syringe) 25 gm IVPUSH Q15M PRN; Protocol PRN Reason: per Hypoglycemia Standing Ord. Finasteride (Finasteride 5 Mg Tablet) 5 mg PO DAILY [facility] Last Admin: 11/02/22 07:32 Dose: 5 mg Documented By: PERICO Glucose (Glucose Gel 15 Gm Gel..Gram.) 15 gm PO Q15M PRN; Protocol PRN Reason: per Hypoglycemia Standing Ord. Heparin Sodium (Porcine) (Heparin Sodium,Porcine 5,000 Unit/Ml Vial) 5,000 unit SUBCUT Q12H [facility] Last Admin: 11/02/22 07:31 Dose: 5,000 unit Documented By: PERICO Cefepime HCl 2 gm/ Sodium (Chloride) 50 mls @ 100 mls/hr IV Q12H [facility] Last Infusion: 11/02/22 06:14 Dose: 0 mls/hr Documented By: JACKIE Vancomycin HCl 750 mg/ Sodium (Chloride) 265 mls @ 265 mls/hr IV Q24H [facility] Last Infusion: 11/01/22 17:46 Dose: 0 mls/hr Documented By: BULMARO Insulin Human Lispro (Insulin Lispro 100 Unit/Ml 3 Ml Vial) 0 unit SUBCUT QIDACHS [facility]; Protocol Last Admin: 11/02/22 07:24 Dose: Not Given Documented By: PERICO Non-Admin Reason: No Insulin Coverage Lisinopril (Lisinopril 20 Mg Tablet) 20 mg PO DAILY [facility]; Protocol Last Admin: 11/02/22 07:31 Dose: 20 mg Documented By: PERICO Morphine Sulfate (Morphine Sulfate 4 Mg/Ml Cartridge) 4 mg IVPUSH Q4H PRN; Protocol PRN Reason: Pain, Severe (Pain Scale 7-10) Last Admin: 11/02/22 06:19 Dose: 4 mg Documented By: JACKIE Multivitamins/Vitamin C (Multivitamin Tablet) 1 tab PO DAILY@1200 [facility] Last Admin: 11/01/22 12:22 Dose: 1 tab Documented By: LIBBY Non-Formulary Medication (Cyclosporine [Restasis]) 1 drop EYE-BOTH Q12H [facility] Omeprazole (Omeprazole 20 Mg Capsule.Dr) 20 mg PO DAILY@0630 [facility] Last Admin: 11/02/22 05:40 Dose: 20 mg Documented By: JACKIE Ondansetron HCl (Ondansetron Hcl 4 Mg/2 Ml Vial) 4 mg IVPUSH Q8H PRN PRN Reason: Nausea and Vomiting Oxycodone HCl (Oxycodone Hcl Immed Release 5 Mg Tablet) 5 mg PO Q6H PRN PRN Reason: Pain, Moderate (Pain Scale 4-6 Last Admin: 11/02/22 00:43 Dose: 5 mg Documented By: JACKIE Pharmacy Consult (Consult Rx Perform Med Rec) 1 each MISCELLANE ONCE PRN PRN Reason: Consult order Pharmacy Consult (Consult Rx Vancomycin Dosing) 1 each MISCELLANE DAILY PRN PRN Reason: Consult order Pharmacy Consult (Consult Rx Vancomycin Dosing) 1 each MISCELLANE DAILY PRN PRN Reason: Consult order Senna (Sennosides 8.6 Mg Tablet) 17.2 mg PO BEDTIME PRN PRN Reason: Constipation Sodium Chloride (0.9 % Sodium Chloride Flush 3 Ml Syringe) 3 ml IVFLUSH QSHIFT [facility] Last Admin: 11/02/22 07:31 Dose: 3 ml Documented By: PERICO Tamsulosin HCl (Tamsulosin Hcl 0.4 Mg Capsule) 0.4 mg PO BEDTIME [facility] Last Admin: 11/01/22 21:33 Dose: 0.4 mg Documented By: MAXIT Labs 11/01/22 05:24 11/02/22 05:19 Labs: Laboratory Results - last 24 hr 11/01/22 11/01/22 11/01/22 11:10 15:30 16:35 Anion Gap Estim Creat Clear Calc Estimated GFR POC Glucose 199 H 80 Random Glucose Calcium Random Vancomycin 17.8 11/01/22 11/02/22 11/02/22 20:06 05:19 07:08 Anion Gap 16 Estim Creat Clear Calc 41.6 Estimated GFR 49 POC Glucose 206 H 90 Random Glucose 85 Calcium 8.9 Random Vancomycin Microbiology Microbiology Results: Microbiology 10/30/22 14:33 Blood Culture - Preliminary Blood - Venous No growth after 48 hours. 10/30/22 14:33 Blood Culture - Preliminary Blood - Venous No growth after 48 hours. Assessment and Plan (1) Osteomyelitis: Status: Acute Assessment and Plan: He has no specific organisms isolated He has some chance of saving toe although not curable if takes IV antibiotics for six weeks. (2) PAD (peripheral artery disease): Status: Acute Plan 81-year-old male with history of controlled type 2 diabetes last A1c 6.8% with diabetic neuropathy, peripheral artery disease, occassional cigar smoker, former cigarette smoker, hyperlipidemia, and hypertension presented to the ED earlier today for evaluation of pain in the left great toe. The patient was recently admitted 10/10- for osteomyelitis of the left great toe initially treated with vanco and cefepime with ID recommending 6 weeks IV ertapenam. However, pt insurance would not cover this so 6 weeks of linezolid was recommended which he has been taking as prescribed. He is admitted for osteomyelitis left great toe having failed outpt PO antibiotics. #Osteomylelitis Left great toe -XR showing progressive bone destruction distal and proximal phalynx.? ESR 123 -Continue IV vanco and cefepime -BC neg so far. PICC line placement after 48hrs neg results -Per vascular surgery, no further intervention needed. Great toe can be salvaged -ID recommends 6 weeks of IV ertapenem, PICC line requested #Stage 2 ulcer distal great toe r/t PAD- present on arrival -Treat osteomyelitis as above -Dressing changes #Controlled type 2 diabetes- last A1c 6.8% -POC glucose -Diabetic diet -Humalog on SS, hold metformin #HTN -continue home meds #PAD -continue statin, asa/plavix DVT prophylaxis-heparin Full code Patient requires ongoing inpatient stay for further management of osteomyelitis of left great toe requiring IV antibiotics, expert consultation, and PICC line placement Time Spent With Patient Time: Total time managing care of this patient today ____ minutes. Quality Stroke Does the patient have a stroke diagnosis?: No VTE Prior VTE?: No VTE Risk Level:: Medical - moderate - high VTE Device Contraindication: Treatment Not Indicated VTE Drug Contraindication: N/A - Med Ordered
[2022-11-02 11:09] LABS: Glucose, Whole Blood 103 mg/dL (60-115)
[2022-11-02] MEDS: Multivitamin TABLET 1 TAB PO (12:56)
--- NOTE | 2022-11-02 14:28 | PC.NURSE ---
pt. left floor to the OR or PICC line placement
--- NOTE | 2022-11-02 15:56 | PC.NURSE ---
pt return to the floor , PICC line noted to L brachial.
[2022-11-02 16:00] VITALS: BP 159/71; PULSE 67; RESP 19; TEMP 36.7; O2SAT 100
--- NOTE | 2022-11-02 16:11 | HO.PICC ---
PICC Line Insertion NPICC Diagnosis: [OSTEOMYELITIS] Indication: [MCC ANTIBX] Pertinent Labs: [REVIEWED] Technique: Following informed consent including risks, benefits and alternatives and using sterile technique including cap and mask, sterile gown, glove and drape, the [LEFT] arm was prepped and draped in the usual sterile fashion of full barrier technique with CHG. Following completion of [place] Protocol the skin and soft tissues were anesthetized with 1% Lidocaine plain. Using ultrasound guidance, [LEFT BRACHIAL] vein access was obtained ON THE FIRST ATTEMPT BY THIS RN. Over an 0.018 wire through peel-away sheath, a [4FR SINGLE LUMEN] PICC line was positioned. Catheter length is [46CM] internal length, [0CM] external length, for a total trimmed length of [46CM]. The procedure was performed in [RM. 272]. Tip verification was performed by Chelo Mendosa with Sherlock 3CG. Tip located in SVC. Ultrasound was used to document vein patency and for needle entry. A formal ultrasound picture and cardiac rhythm strip was recorded. V[employer] Research [employer] Development Scientist has released the line for use and it is currently dressed with a StatLock, Tegaderm, and CHG disc. Verification has been performed for blood return and line patency. Arm Circumference: [27.5CM] Equipment: [[employer] POWER PICC SOLO] Catheter Type: [4FR SINGLE LUMEN PICC LINE] Lot #: [[id number]]
[2022-11-02 16:38] LABS: Glucose, Whole Blood 107 mg/dL (60-115)
[2022-11-02] MEDS: Atorvastatin Calcium 40 MG TABLET PO (17:58)
[2022-11-02] MEDS: vancomycin HCL 750 MG in 0.9 % Sodium Chloride 250 ML 265 MG IV (18:03)
[2022-11-02 19:03] VITALS: BP 152/70; PULSE 70; RESP 18; TEMP 36.3; O2SAT 98
[2022-11-02 20:03] LABS: Glucose, Whole Blood 209 mg/dL (60-115)
[2022-11-02] MEDS: Tamsulosin HCL 0.4 MG CAPSULE PO (20:08)
[2022-11-02] MEDS: Insulin Lispro 100 UNIT/ML 3 ML VIAL SUBCUT (20:08)
[2022-11-03] MEDS: oxyCODONE HCl Immed Release 5 MG TABLET PO ×3 (02:00→23:54)
[2022-11-03 03:48] VITALS: BP 139/65; PULSE 72; RESP 18; TEMP 36.7; O2SAT 97
[2022-11-03] MEDS: Omeprazole 20 MG CAPSULE.DR PO (06:15)
[2022-11-03] MEDS: cefEPime HCl 2 GM in 0.9 % Sodium Chloride 50 ML IV ×2 (06:15→16:50)
[2022-11-03 06:28] LABS: Creatinine Clr Calc Pharmacy 39.8; Estimated Glomerular Filt Rate 48
[2022-11-03 06:51] VITALS: BP 152/70; PULSE 77; RESP 18; TEMP 36.6; O2SAT 97
[2022-11-03 07:07] LABS: Glucose, Whole Blood 114 mg/dL (60-115)
[2022-11-03 08:17] VITALS: BP 152/70; PULSE 77; O2SAT 97
[2022-11-03] MEDS: lisinopriL 20 MG TABLET PO (08:26)
[2022-11-03] MEDS: Aspirin 81 MG TAB.CHEW PO (08:26)
[2022-11-03] MEDS: Clopidogrel Bisulfate 75 MG TABLET PO (08:27)
[2022-11-03] MEDS: Finasteride 5 MG TABLET PO (08:27)
[2022-11-03] MEDS: Heparin Sodium,Porcine 5,000 UNIT/ML VIAL 5000 UNIT SUBCUT ×2 (08:27→20:23)
--- NOTE | 2022-11-03 11:00 | HO.VASCPN ---
Subjective Subjective Date of Service: 11/03/22 Patient reports: no new complaints Interval history: Patient seen and examined. No significant events. Reports he is doing relatively well. Pain well controlled and great toe healing well. Today he is actually his 82th birthday. He now presents for follow-up regarding nonhealing great toe ulcer Physical Exam Vital Signs: Vital Signs: Last Vital Signs Temp 97.9 F 11/03/22 06:51 Pulse 77 11/03/22 08:17 Resp 18 11/03/22 06:51 BP 152/70 H 11/03/22 08:17 Pulse Ox 97 11/03/22 08:17 O2 Del Method 11/03/22 06:51 BMI result Body Mass Index 24.5 Const: General: cooperative, healthy appearing and no acute distress Orientation/consciousness: oriented to person, oriented to place and oriented to time HEENT: Head: Yes normal to inspection Neck: Carotids: no bruits Chest: Chest palpation & inspection: normal inspection of the chest Resp: Effort & Inspection: normal respiratory effort and able to speak in complete sentences Auscultation: clear to auscultation bilaterally Cardio: Rate: regular rate Heart sounds: S1 normal heart sound present and S2 normal heart sound present GI: Inspection: Yes normal to inspection Skin: Other: General skin exam: no rashes or lesions noted Wounds: no wounds Neuro: General: oriented to person, oriented to place, oriented to time and CN's II-XI intact bilaterally Extrem: General: Yes normal to inspection, Yes full ROM and Yes no clubbing, cyanosis or edema Psych: Appearance: grossly normal and well kempt Speech and movement: Normal speech and movement present Affect: normal affect Progress Note: A&P Assessment and plan (1) PAD (peripheral artery disease): Status: Acute Assessment and Plan: In short left great toe ulcer appears to be doing extremely well. Slowly closing. Overall good granulation base. Continue with local dressings. He can see me in approximately 2 weeks upon discharge. Thank you for allowing us to assist in his care. Time Spent With Patient Time: Total time managing care of this patient today ____ minutes. Procedures Date of Service Date of Service: 11/03/22 Quality Stroke Does the patient have a stroke diagnosis?: No VTE Prior VTE?: No VTE Risk Level:: Medical - moderate - high VTE Device Contraindication: Treatment Not Indicated VTE Drug Contraindication: N/A - Med Ordered
[2022-11-03 11:09] LABS: Glucose, Whole Blood 194 mg/dL (60-115)
--- NOTE | 2022-11-03 11:16 | HO.PM.IMPN ---
Subjective Subjective Date of Service: 11/03/22 Interval History: Seen in follow up for osteomyelitis left great toe Interval history: No complaints, pain well controlled it is his birthday today Physical Exam Vital Signs: Vital Signs: Last Vital Signs Temp 97.9 F 11/03/22 06:51 Pulse 77 11/03/22 08:17 Resp 18 11/03/22 06:51 BP 152/70 H 11/03/22 08:17 Pulse Ox 97 11/03/22 08:17 O2 Del Method 11/03/22 06:51 BMI result Body Mass Index 24.5 Const: Other: General: AO X 3, no acute distress Resp: CTA bilateral CVS: S1,S2,RRR GI: +BS, NT, no distention Skin: see picture Neuro: motor grossly intact Psych: appropriate affect Objective Data Active Medications Acetaminophen (Acetaminophen 325 Mg Tablet) 650 mg PO Q6H PRN PRN Reason: Pain, Mild (Pain Scale 1-3) Last Admin: 11/01/22 21:49 Dose: 650 mg Documented By: BULMARO Aspirin (Aspirin 81 Mg Tab.Chew) 81 mg PO DAILY [facility] Last Admin: 11/03/22 08:26 Dose: 81 mg Documented By: LIBBY Atorvastatin Calcium (Atorvastatin Calcium 40 Mg Tablet) 40 mg PO MOTH@1800 [facility] Last Admin: 11/02/22 17:58 Dose: 40 mg Documented By: PERICO Clopidogrel Bisulfate (Clopidogrel Bisulfate 75 Mg Tablet) 75 mg PO DAILY [facility] Last Admin: 11/03/22 08:27 Dose: 75 mg Documented By: LIBBY Dextrose (Dextrose 50 % 25 Gm/50 Ml Syringe) 25 gm IVPUSH Q15M PRN; Protocol PRN Reason: per Hypoglycemia Standing Ord. Finasteride (Finasteride 5 Mg Tablet) 5 mg PO DAILY [facility] Last Admin: 11/03/22 08:27 Dose: 5 mg Documented By: LIBBY Glucose (Glucose Gel 15 Gm Gel..Gram.) 15 gm PO Q15M PRN; Protocol PRN Reason: per Hypoglycemia Standing Ord. Heparin Sodium (Porcine) (Heparin Sodium,Porcine 5,000 Unit/Ml Vial) 5,000 unit SUBCUT Q12H [facility] Last Admin: 11/03/22 08:27 Dose: 5,000 unit Documented By: LIBBY Cefepime HCl 2 gm/ Sodium (Chloride) 50 mls @ 100 mls/hr IV Q12H [facility] Last Infusion: 11/03/22 06:46 Dose: 0 mls/hr Documented By: JACKIE Vancomycin HCl 750 mg/ Sodium (Chloride) 265 mls @ 265 mls/hr IV Q24H [facility] Last Infusion: 11/02/22 19:03 Dose: 0 mls/hr Documented By: PERICO Insulin Human Lispro (Insulin Lispro 100 Unit/Ml 3 Ml Vial) 0 unit SUBCUT QIDACHS [facility]; Protocol Last Admin: 11/03/22 07:56 Dose: Not Given Documented By: LIBBY Non-Admin Reason: No Insulin Coverage Lisinopril (Lisinopril 20 Mg Tablet) 20 mg PO DAILY [facility]; Protocol Last Admin: 11/03/22 08:26 Dose: 20 mg Documented By: LIBBY Morphine Sulfate (Morphine Sulfate 4 Mg/Ml Cartridge) 4 mg IVPUSH Q4H PRN; Protocol PRN Reason: Pain, Severe (Pain Scale 7-10) Last Admin: 11/02/22 06:19 Dose: 4 mg Documented By: JACKIE Multivitamins/Vitamin C (Multivitamin Tablet) 1 tab PO DAILY@1200 [facility] Last Admin: 11/02/22 12:56 Dose: 1 tab Documented By: PERICO Non-Formulary Medication (Cyclosporine [Restasis]) 1 drop EYE-BOTH Q12H [facility] Omeprazole (Omeprazole 20 Mg Capsule.Dr) 20 mg PO DAILY@0630 [facility] Last Admin: 11/03/22 06:15 Dose: 20 mg Documented By: JACKIE Ondansetron HCl (Ondansetron Hcl 4 Mg/2 Ml Vial) 4 mg IVPUSH Q8H PRN PRN Reason: Nausea and Vomiting Oxycodone HCl (Oxycodone Hcl Immed Release 5 Mg Tablet) 5 mg PO Q6H PRN PRN Reason: Pain, Moderate (Pain Scale 4-6 Last Admin: 11/03/22 02:00 Dose: 5 mg Documented By: JACKIE Pharmacy Consult (Consult Rx Perform Med Rec) 1 each MISCELLANE ONCE PRN PRN Reason: Consult order Pharmacy Consult (Consult Rx Vancomycin Dosing) 1 each MISCELLANE DAILY PRN PRN Reason: Consult order Pharmacy Consult (Consult Rx Vancomycin Dosing) 1 each MISCELLANE DAILY PRN PRN Reason: Consult order Senna (Sennosides 8.6 Mg Tablet) 17.2 mg PO BEDTIME PRN PRN Reason: Constipation Sodium Chloride (0.9 % Sodium Chloride Flush 3 Ml Syringe) 3 ml IVFLUSH QSHIFT [facility] Last Admin: 11/02/22 20:08 Dose: 3 ml Documented By: ANGELLA Tamsulosin HCl (Tamsulosin Hcl 0.4 Mg Capsule) 0.4 mg PO BEDTIME [facility] Last Admin: 11/02/22 20:08 Dose: 0.4 mg Documented By: ANGELLA Labs 11/01/22 05:24 11/03/22 05:46 Labs: Laboratory Results - last 24 hr 11/02/22 11/02/22 11/03/22 16:21 19:59 05:46 Estim Creat Clear Calc 39.8 Estimated GFR 48 POC Glucose 107 209 H 11/03/22 11/03/22 06:50 11:01 Estim Creat Clear Calc Estimated GFR POC Glucose 114 194 H Assessment and Plan (1) Osteomyelitis: Status: Acute Assessment and Plan: He has no specific organisms isolated He has some chance of saving toe although not curable if takes IV antibiotics for six weeks. (2) PAD (peripheral artery disease): Status: Acute Plan 81-year-old male with history of controlled type 2 diabetes last A1c 6.8% with diabetic neuropathy, peripheral artery disease, occassional cigar smoker, former cigarette smoker, hyperlipidemia, and hypertension presented to the ED earlier today for evaluation of pain in the left great toe. The patient was recently admitted 10/10- for osteomyelitis of the left great toe initially treated with vanco and cefepime with ID recommending 6 weeks IV ertapenam. However, pt insurance would not cover this so 6 weeks of linezolid was recommended which he has been taking as prescribed. He is admitted for osteomyelitis left great toe having failed outpt PO antibiotics. #Osteomylelitis Left great toe -XR showing progressive bone destruction distal and proximal phalynx.? ESR 123 -Continue IV vanco and cefepime -BC neg so far. PICC line placement after 48hrs neg results -Per vascular surgery, no further intervention needed. Great toe can be salvaged -ID recommends 6 weeks of IV ertapenem, PICC inserted 11/02 #Stage 2 ulcer distal great toe r/t PAD- present on arrival -Treat osteomyelitis as above -Dressing changes #Controlled type 2 diabetes- last A1c 6.8% -POC glucose -Diabetic diet -Humalog on SS, hold metformin #HTN -continue home meds #PAD -continue statin, asa/plavix DVT prophylaxis-heparin Full code Patient requires ongoing inpatient stay for further management of osteomyelitis of left great toe requiring IV antibiotics, and awaiting placement Time Spent With Patient Time: Total time managing care of this patient today ____ minutes. Quality Stroke Does the patient have a stroke diagnosis?: No VTE Prior VTE?: No VTE Risk Level:: Medical - moderate - high VTE Device Contraindication: Treatment Not Indicated VTE Drug Contraindication: N/A - Med Ordered
[2022-11-03] MEDS: Insulin Lispro 100 UNIT/ML 3 ML VIAL SUBCUT ×2 (11:28→20:24)
[2022-11-03] MEDS: Multivitamin TABLET 1 TAB PO (11:28)
[2022-11-03] MEDS: 0.9 % Sodium Chloride Flush 3 ML SYRINGE IVFLUSH ×3 (11:28→23:54)
--- NOTE | 2022-11-03 12:46 | MHC.CM.PN ---
IMM 11/03/22, PLAN FOR PT TO D/C TO [facility] SATURDAY 11/04 AT 11AM FOR STR IV ERTAPENEM X 6WKS AND PT VIA [facility] FOR BLS TRANSPORT.
[2022-11-03 14:58] VITALS: BP 131/63; PULSE 74; RESP 16; TEMP 36.9; O2SAT 100
[2022-11-03 15:23] LABS: Vancomycin Random 20.3 mcg/mL (15-20)
--- NOTE | 2022-11-03 15:44 | HE.PHANOTE ---
Vancomycin Dosing Addendum Patients level came back at 20.3 mg/L when insight predicted it to be at 16.1 mg/L. Patients Scr is also beginning to trend up. Will hold todays dose and get a random for tomorrow morning @0500 to see level and to see Scr. Patient has not had fevers recently and WBC are within normal limits.
[2022-11-03 16:30] LABS: Glucose, Whole Blood 95 mg/dL (60-115)
[2022-11-03 19:13] VITALS: BP 148/70; PULSE 72; RESP 16; TEMP 36.9; O2SAT 98
[2022-11-03 19:16] LABS: Glucose, Whole Blood 172 mg/dL (60-115)
[2022-11-03] MEDS: Tamsulosin HCL 0.4 MG CAPSULE PO (20:24)
[2022-11-04 02:13] VITALS: BP 167/74; PULSE 68; RESP 18; TEMP 36.4; O2SAT 92
[2022-11-04] MEDS: Acetaminophen 325 MG TABLET 650 MG PO (02:24)
[2022-11-04] MEDS: Omeprazole 20 MG CAPSULE.DR PO (05:29)
[2022-11-04] MEDS: cefEPime HCl 2 GM in 0.9 % Sodium Chloride 50 ML IV (05:29)
[2022-11-04 06:05] LABS: Creatinine Clr Calc Pharmacy 39.5; Estimated Glomerular Filt Rate 47
[2022-11-04 07:41] LABS: Glucose, Whole Blood 131 mg/dL (60-115)
[2022-11-04 07:49] VITALS: BP 124/61; PULSE 68; RESP 18; TEMP 36.6; O2SAT 97
[2022-11-04 08:34] LABS: Vancomycin Random 16.9 mcg/mL (15-20)
--- NOTE | 2022-11-04 08:34 | PM.DS ---
DS: Providers Provider Date of Service: 11/04/22 Date of admission: 10/30/22 17:34 Primary care physician: Omi Farrar MD Consults: 10/30/22 17:34 Consult to Vascular Surgery Routine Consulting Provider: Ez Gallegos Reason for consultation: osteomyelitis 10/31/22 14:53 Consult to Infectious Diseases Routine Consulting Provider: Vilma Bush Reason for consultation: osteomyelitis DS: Diagnosis Discharge Diagnosis (1) Osteomyelitis: Status: Acute (2) PAD (peripheral artery disease): Status: Acute DS: Summary Hospital Course Hospital Course: Admission HPI: 81-year-old male with history of controlled type 2 diabetes last A1c 6.8% with diabetic neuropathy, peripheral artery disease, occassional cigar smoker, former cigarette smoker, hyperlipidemia, and hypertension presented to the ED earlier today for evaluation of pain in the left great toe. The patient was recently admitted 10/10- for osteomyelitis of the left great toe initially treated with vanco and cefepime with ID recommending 6 weeks IV ertapenam. However, pt insurance would not cover this so 6 weeks of linezolid was recommended which he has been taking as prescribed.? He has been having [facility] at his home to change his dressings as he does have a chronic wound of the left great toe related to diabetes/PAD and did undergo revascularization during this recent admission with Dr. Gallegos.? On arrival, VSS.? No leukocytosis.? ESR significantly elevated at 123, CRP normal.? Cr 1.50 (baseline 1.19), BUN 55.? Sodium 139, potassium 5.7, chloride 111, CO2 18.? XR of the left foot showing progressive bone loss and bone destruction of the distal tuft of the distal phalanx of the little great toe consistent with osteomyelitis as well as developing bone destruction of the diaphyseal shaft of the distal phalanx of the great toe. Pt to be admitted for osteomyelitis of the left great toe having failed outpt PO therapies. Hospital course: 81-year-old male with history of controlled type 2 diabetes last A1c 6.8% with diabetic neuropathy, peripheral artery disease, occassional cigar smoker, former cigarette smoker, hyperlipidemia, and hypertension presented to the ED earlier today for evaluation of pain in the left great toe. The patient was recently admitted 10/10- for osteomyelitis of the left great toe initially treated with vanco and cefepime with ID recommending 6 weeks IV ertapenam. However, pt insurance would not cover this so 6 weeks of linezolid was recommended which he has been taking as prescribed. He is admitted for osteomyelitis left great toe having failed outpt PO antibiotics. #Acute Osteomylelitis Left great toe as evidence by xray finding of progressive bone destruction distal and proximal phalynx, ? ESR 123. While in the hospital has been treated with IV vanco and cefepime, blood cultures have been negative. Vascular surgeon Dr. Gallegos has assessed with the following In short left great toe ulcer appears to be doing extremely well.? Slowly closing.? Overall good granulation base.? Continue with local dressings.? He can see me in approximately 2 weeks upon discharge.? He had AKHIL sudiees showing he right ankle-brachial index is normal. The left ankle-brachial index is abnormally elevated, suggesting diffuse noncompliant atherosclerotic calcifications. Infectious disease Dr. Bush recommends 6 weeks of IV Invnaz #Stage 2 ulcer distal great toe r/t PAD- present on arrival--as above #Controlled type 2 diabetes- last A1c 6.8%, continue metformin #HTN -continue home meds #PAD -continue statin, asa/plavix Time Spent with Patient Time attestation: Total time managing care of this patient today ____ minutes. Discharge coordination time: Greater than 30 minutes Quality: Safe Use of Opioids Does Pt have an Active Cancer Diagnosis on the Problem List?: No Quality: Stroke Does the patient have a stroke diagnosis?: No Physical Exam Vital Signs: Vital Signs: Last Vital Signs Temp 97.9 F 11/04/22 07:49 Pulse 68 11/04/22 07:49 Resp 18 11/04/22 07:49 BP 124/61 11/04/22 07:49 Pulse Ox 97 11/04/22 07:49 O2 Del Method 11/04/22 07:49 BMI result Body Mass Index 24.5 Const: Other: General: AO X 3, no acute distress Resp: CTA bilateral CVS: S1,S2,RRR GI: +BS, NT, no distention Skin: see picture Neuro: motor grossly intact Psych: appropriate affect DS: Data Data Completed and Pending Completed studies during hospitalization [Text1]: Procedures Dilation of Left Common Iliac Artery using Drug-Coated Balloon, Percutaneous Approach (10/10/22) Extirpation of Matter from Left Common Iliac Artery, Percutaneous Approach (10/10/22) Insertion of Infusion Device into Superior Vena Cava, Percutaneous Approach (10/10/22) Ultrasonography of Superior Vena Cava, Guidance (10/10/22) Labs on day of discharge: Laboratory Results - last 24 hr 11/03/22 11/03/22 11/03/22 11:01 14:39 16:21 Creatinine Estim Creat Clear Calc Estimated GFR POC Glucose 194 H 95 Random Vancomycin 20.3 H 11/03/22 11/04/22 11/04/22 19:11 05:12 07:21 Creatinine 1.44 H Estim Creat Clear Calc 39.5 Estimated GFR 47 POC Glucose 172 H 131 H Random Vancomycin Preliminary micro results at discharge 10/30/22 14:33 Blood Culture - Preliminary Blood - Venous No growth after 48 hours. 10/30/22 14:33 Blood Culture - Preliminary Blood - Venous No growth after 48 hours. Discharge Plan Discharge Anticipated Discharge Date/Time: 11/04/22 08:32 Patient Disposition: [facility] Discharge Diagnosis: Acute osteomyelitis of the foot Referrals: Omi Farrar MD [Primary Care Provider] - 1 Week Ez Gallegos MD [Physician] - 2 Weeks Discharge Medications: New ertapenem [Invanz] 1 gram recon soln 1 g IM Q24H Qty: 41 0RF Continued atorvastatin 40 mg tablet 40 mg PO MOTH@1800 lisinopril 20 mg tablet 1 tab PO DAILY cyclosporine [Restasis] 0.05 % Dropperette 1 drp OPHTHALMIC (EYE) Q12H Rx Instructions: instill 1 drop into both eyes arginine HCl (L-arginine) 1,000 mg Tablet 1,000 mg PO DAILY clopidogrel 75 mg Tablet 75 mg PO DAILY Qty: 30 0RF tamsulosin 0.4 mg Capsule 0.4 mg PO BEDTIME Qty: 30 0RF aspirin 81 mg Tablet,Chewable 81 mg PO DAILY Qty: 30 0RF finasteride 5 mg Tablet 5 mg PO DAILY Qty: 30 0RF omega-3 fatty acids 1,000 mg capsule 1,000 mg PO DAILY@1200 multivitamin Tablet 1 tab PO DAILY@1200 metformin 500 mg tablet 500 mg PO BID omeprazole 20 mg tablet,delayed release (DR/EC) 20 mg PO DAILY@0630 Discontinued linezolid 600 mg tablet 600 mg PO BID Qty: 56 0RF Discharge Orders: Discharge Order (Routine); Ordered 11/04/22 Ordered By: Macario Howell Diet: Advance to usual diet Activity on Discharge: As tolerated Stand Alone Forms: Patient Portal Discharge page Care Plan Goals: Resolution of osteomyelitis Health Concerns: Osteomyelitis, peripheral arterial disease. Plan of Treatment: Invanz 1 g Q 24 hours for 41 doses Assessment: As above
[2022-11-04] MEDS: Clopidogrel Bisulfate 75 MG TABLET PO (09:03)
[2022-11-04] MEDS: Heparin Sodium,Porcine 5,000 UNIT/ML VIAL 5000 UNIT SUBCUT (09:03)
[2022-11-04] MEDS: Finasteride 5 MG TABLET PO (09:03)
[2022-11-04] MEDS: oxyCODONE HCl Immed Release 5 MG TABLET PO (09:03)
[2022-11-04] MEDS: lisinopriL 20 MG TABLET PO (09:03)
[2022-11-04] MEDS: Ertapenem Sodium 1 GM in 0.9 % Sodium Chloride 50 ML IV (09:04)
[2022-11-04] MEDS: 0.9 % Sodium Chloride Flush 3 ML SYRINGE IVFLUSH (09:06)
[2022-11-04] MEDS: Aspirin 81 MG TAB.CHEW PO (09:06)
--- NOTE | 2022-11-04 10:05 | MHC.CM.PN ---
PT IS SET TO DC TO STR AT [facility] AT [address] TODAY [address] [facility] MAHAMED RINCON [phone], AWARE AND WILL BE IN TO HELP PT WITH DC
== END 2022-11-04 13:44 | disposition skilled nursing facility (03) | DRG 300 ==
LOC: HO.ED 16:49 → HO.EDOVER 20:08 → HO.S3 21:48
PROVIDERS: Student in an Organized Health Care Education/Training Program; Admitting Provider Physician Assistant; Emergency Provider Emergency Medicine; PCP Internal Medicine; Visit Provider Internal Medicine
PROC: 02HV33Z Insertion of Infusion Device into Superior Vena Cava, Percutaneous Approach (ICD-10-PCS; principal; 2022-11-02 14:00)
DX: E11.51 Type 2 diabetes mellitus with diabetic peripheral angiopathy without gangrene (principal); M86.172 Other acute osteomyelitis, left ankle and foot; E11.69 Type 2 diabetes mellitus with other specified complication; E11.42 Type 2 diabetes mellitus with diabetic polyneuropathy; F17.290 Nicotine dependence, other tobacco product, uncomplicated; I70.245 Atherosclerosis of native arteries of left leg with ulceration of other part of foot; L97.529 Non-pressure chronic ulcer of other part of left foot with unspecified severity; Z20.822 Contact with and (suspected) exposure to COVID-19; Z88.1 Allergy status to other antibiotic agents; Z79.02 Long term (current) use of antithrombotics/antiplatelets; Z79.82 Long term (current) use of aspirin; Z79.84 Long term (current) use of oral hypoglycemic drugs; Z79.899 Other long term (current) drug therapy
CPT/HCPCS: 36415; 36573; 73630; 80048; 80202; 82565; 82947; 85025; 85652; 86140; 87040; 87635; 93923; 93925; 97162; 99285; C1751; J0692; J1335; J1643; J2270; J3370

== ENCOUNTER 2022-12-31 22:24 | Emergency (ER) | payer MEDICARE, SELFPAY ==
--- NOTE | ~2022-12-31 | XR_ITS ---
EXAMINATION: XR ANKLE, LEFT CLINICAL INFORMATION: Pain COMPARISON: Radiographs from 10/30/2022 TECHNIQUE: AP, lateral, and mortise views of the left ankle. FINDINGS: No acute fracture or dislocation. Healed distal fibular diaphyseal fracture. Lateral plate along the distal fibular diametaphysis with transsyndesmotic screws. There are also 2 cannulated screws within the medial malleolus. No evidence of hardware failure or complication. Small heterotopic ossification posterior to the tibial plafond and is unchanged. Ankle mortise is grossly. Talar dome intact. Diffuse mild soft tissue swelling. Vascular calcifications. XR/XR ankle LT min 3V IMPRESSION: * No acute fracture or dislocation. * No evidence of hardware failure or complication. * Healed distal fibular diaphyseal fracture.
[2022-12-31 22:30] VITALS: BP 137/85; PULSE 57; O2SAT 100; BMI 25.8
[2022-12-31 22:36] VITALS: BP 150/57; PULSE 59; RESP 18; O2SAT 100
--- NOTE | 2022-12-31 22:46 | ED.EXTPRO ---
HPI - Extremity Problem General Chief complaint: Extremity Injury, Lower Stated complaint: swollen left leg Time Seen by Provider: 12/31/22 22:44 Source: patient Mode of arrival: ambulatory Limitations: no limitations History of Present Illness HPI Narrative: Patient with history of osteomyelitis of left G toe after local infectionin 11/23 comes here for pain in the left ankle and swelling for last 24 hours without any injury no fever no chills no history of gout patient had a fracture of left ankle 2004 status post ORIF Related Data Home Medications Medication Instructions Recorded Confirmed metformin 500 mg tablet 500 mg PO BID 06/30/20 10/30/22 multivitamin 1 tab PO DAILY@1200 06/30/20 10/30/22 omega-3 fatty acids 1,000 mg 1,000 mg PO DAILY@1200 06/30/20 10/30/22 capsule omeprazole 20 mg tablet,delayed 20 mg PO DAILY@0630 06/30/20 10/30/22 release arginine HCl (L-arginine) 1,000 mg 1,000 mg PO DAILY 10/10/22 10/30/22 tablet atorvastatin 40 mg tablet 40 mg PO MOTH@1800 10/10/22 10/30/22 cyclosporine 0.05 % eye drops in a 1 drp ophthalmic (eye) Q12H 10/10/22 10/30/22 dropperette (Restasis) lisinopril 20 mg tablet 1 tab PO DAILY 10/10/22 10/30/22 Previous Rx's Medication Instructions Recorded aspirin 81 mg chewable tablet 81 mg PO DAILY #30 tabs 10/20/22 clopidogrel 75 mg tablet 75 mg PO DAILY #30 tabs 10/20/22 finasteride 5 mg tablet 5 mg PO DAILY #30 tabs 10/20/22 tamsulosin 0.4 mg capsule 0.4 mg PO BEDTIME #30 caps 10/20/22 ertapenem 1 gram solution for 1 g IM Q24H #41 ea 11/04/22 injection (Invanz) tramadol 50 mg tablet 50 mg PO Q6H PRN pain #20 tabs 01/01/23 Allergies Allergy/AdvReac Type Severity Reaction Status Date / Time clindamycin [From CLEOCIN] Allergy Severe BLACK STOOL Verified 10/17/22 16:57 Review of Systems Review of Systems: Yes all other systems are reviewed and are negative PMFSH Past Medical History Medical History Diabetes Hypertension PAD (peripheral artery disease) PSA (psoriatic arthritis) Skin ulcer of left great toe Type 2 diabetes mellitus Surgical History History of atherectomy Social History Social History Household Members: Children Household Members Other:: 1 Housing: House Do you presently have visiting nurse or other home services: Yes Alcohol intake: former Patient Tobacco Use Status: Never used Tobacco Tobacco use type: Cigarette Smoked in Last 30 Days: No e-Cigarette/Vaping Use: Never Used Second Hand Smoke Exposure: No Use of substances other than those prescribed or required for medical reasons: No Advance Directives: No Advance Directives Information Provided: No Advance Directives Date on File: 10/10/22 service: No Current occupational status: retired Physical Exam Vital Signs: Vital Signs: Last Vital Signs Pulse 59 12/31/22 22:36 Resp 18 12/31/22 22:36 BP 150/57 H 12/31/22 22:36 Pulse Ox 100 12/31/22 22:36 O2 Del Method Room Air 12/31/22 22:36 BMI result Body Mass Index 25.8 Appearance: Alert. Oriented X3. No acute distress. ENT: Pharynx normal. Oral Mucosa moist Neck: Normal inspection. Neck supple. CVS: Normal heart rate and rhythm. Pulses normal. Respiratory: No respiratory distress. Equal air entry bilateral, Abdomen: Soft and nontender. Bowel sounds are present, no mass palpable, no CVA tenderness Skin: Skin warm and dry. Normal skin color. Normal skin turgor. Extremities: No lower extremity edema. No calf tenderness left ankle slightly swollen no local warmth no skin discoloration no signs of infection neurovascular intact Neuro: Oriented X 3. No motor deficit. Medical Decision Making Medical Decision Making MDM Narrative: Patient with left ankle pain with previous surgery clinically not infected no local warmth no redness white counts normal sed rate slightly elevated but CRP negative normal lactic acid level. Will discharge patient home on tramadol advised to follow with PCP Lab Data MDM Lab Attestation statement: I reviewed the patient's lab results. 12/31/22 22:47 12/31/22 22:47 Labs: Lab Results 12/31/22 12/31/22 12/31/22 Range/Units 22:47 22:47 22:47 WBC 9.1 (4.8-10.8) X10*3/uL RBC 3.13 L (4.60-5.80) X10*6/uL Hgb 10.3 L (14.0-18.0) g/dl Hct 31.1 L (42.0-52.0) % MCV 99.4 H (80.0-98.0) fL MCH 32.9 (27.0-33.0) pg MCHC 33.1 (31.0-36.0) g/dl RDW 13.2 (11.0-16.0) % Plt Count 215 (160-400) X10*3/uL MPV 11.9 (9.4-12.4) fL Immature Gran % (Auto) 0.2 (0.0-0.4) % Neut % (Auto) 54.9 (45-73) % Lymph % (Auto) 27.4 (20-40) % [place] % (Auto) 11.7 H (2-11) % Eos % (Auto) 5.7 H (0-4) % Baso % (Auto) 0.1 (0-2) % Lymph # (Auto) 2.5 (1.2-4.9) X10*3/uL [place] # (Auto) 1.1 (0.1-1.2) X10*3/uL Eos # (Auto) 0.5 H (0.0-0.4) X10*3/uL Baso # (Auto) 0.0 (0.0-0.2) X10*3/uL Abs Immat Gran (auto) 0.02 (0.00-0.03) X10*3/uL Absolute Neuts (auto) 5.0 (2.0-8.3) x10*3/uL Absolute Nucleated RBC 0.000 (0.0-0.012) X10*3/uL Nucleated RBC % (auto) 0.0 (0.0-0.2) /100WBC ESR (0-15) MM/HR Sodium 139 (135-145) mmol/L Potassium 5.5 H (3.3-5.1) mmol/L Chloride 107 (96-108) mmol/L Carbon Dioxide 24 (22-29) mmol/L Anion Gap 14 (12-20) BUN 55 H (9-16) mg/dL Creatinine 1.70 H (0.5-1.4) mg/dL Estim Creat Clear Calc 33.5 Estimated GFR 39 Random Glucose 140 H (60-115) mg/dL Lactic Acid 1.8 (0.5-2.0) mmol/L Calcium 9.4 (8.4-10.2) mg/dL C-Reactive Protein 0.37 (< or = 0.50) mg/dL 12/31/22 Range/Units 22:47 WBC (4.8-10.8) X10*3/uL RBC (4.60-5.80) X10*6/uL Hgb (14.0-18.0) g/dl Hct (42.0-52.0) % MCV (80.0-98.0) fL MCH (27.0-33.0) pg MCHC (31.0-36.0) g/dl RDW (11.0-16.0) % Plt Count (160-400) X10*3/uL MPV (9.4-12.4) fL Immature Gran % (Auto) (0.0-0.4) % Neut % (Auto) (45-73) % Lymph % (Auto) (20-40) % [place] % (Auto) (2-11) % Eos % (Auto) (0-4) % Baso % (Auto) (0-2) % Lymph # (Auto) (1.2-4.9) X10*3/uL [place] # (Auto) (0.1-1.2) X10*3/uL Eos # (Auto) (0.0-0.4) X10*3/uL Baso # (Auto) (0.0-0.2) X10*3/uL Abs Immat Gran (auto) (0.00-0.03) X10*3/uL Absolute Neuts (auto) (2.0-8.3) x10*3/uL Absolute Nucleated RBC (0.0-0.012) X10*3/uL Nucleated RBC % (auto) (0.0-0.2) /100WBC ESR 28 H (0-15) MM/HR Sodium (135-145) mmol/L Potassium (3.3-5.1) mmol/L Chloride (96-108) mmol/L Carbon Dioxide (22-29) mmol/L Anion Gap (12-20) BUN (9-16) mg/dL Creatinine (0.5-1.4) mg/dL Estim Creat Clear Calc Estimated GFR Random Glucose (60-115) mg/dL Lactic Acid (0.5-2.0) mmol/L Calcium (8.4-10.2) mg/dL C-Reactive Protein (< or = 0.50) mg/dL Discharge Plan Discharge Clinical Impression: Arthritic-like pain Patient Disposition: Home, Self-Care Instructions: Arthritis (ED) Additional Instructions: At this time there is no sign of infection Seems like arthritis from previous surgery Pain medication as prescribed Report to the ER if high fever worsening of the swelling or redness of ankle Prescriptions: New tramadol 50 mg tablet 50 mg PO Q6H PRN (Reason: pain) Qty: 20 0RF No Action atorvastatin 40 mg tablet 40 mg PO MOTH@1800 lisinopril 20 mg tablet 1 tab PO DAILY cyclosporine [Restasis] 0.05 % Dropperette 1 drp OPHTHALMIC (EYE) Q12H Rx Instructions: instill 1 drop into both eyes arginine HCl (L-arginine) 1,000 mg Tablet 1,000 mg PO DAILY clopidogrel 75 mg Tablet 75 mg PO DAILY Qty: 30 0RF tamsulosin 0.4 mg Capsule 0.4 mg PO BEDTIME Qty: 30 0RF aspirin 81 mg Tablet,Chewable 81 mg PO DAILY Qty: 30 0RF finasteride 5 mg Tablet 5 mg PO DAILY Qty: 30 0RF ertapenem [Invanz] 1 gram recon soln 1 g IM Q24H Qty: 41 0RF omega-3 fatty acids 1,000 mg capsule 1,000 mg PO DAILY@1200 multivitamin Tablet 1 tab PO DAILY@1200 metformin 500 mg tablet 500 mg PO BID omeprazole 20 mg tablet,delayed release (DR/EC) 20 mg PO DAILY@0630
--- OUTSIDE RECORDS SUMMARY | 2022-12-31 22:51 | XMS_ITS | Continuity of Care Document ---
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 Name Role Phone Jacky Garvey MD Primary Care Physician Encounter [facility] Date(s): 05/16/21 - 05/23/21 [facility] Adult [address] [place] [address]- Encounter Diagnosis Medicare annual wellness visit, subsequent(Discharge Diagnosis) - 05/12/21 Type 2 diabetes with nephropathy(Discharge Diagnosis) - 05/12/21 Type 2 diabetes mellitus PAD;declines statin(Discharge Diagnosis) - 05/12/21 Macrocytosis without anemia normal b12/folate/tsh(Discharge Diagnosis) - 05/12/21 Mild nonproliferative diabetic retinopathy of both eyes(Discharge Diagnosis) - 05/12/21 Chronic renal impairment, stage 3 (moderate)(Discharge Diagnosis) - 05/12/21 PAD (peripheral artery disease) atherectomy 2016(Discharge Diagnosis) - 05/12/21 History of bleeding peptic ulcer 2016(Discharge Diagnosis) - 05/12/21 Encounter for monitoring long-term proton pump inhibitor therapy(Discharge Diagnosis) - 05/12/21 Osteopenia bmd 2018(Discharge Diagnosis) - 05/12/21 PA (psoriatic arthritis)(Discharge Diagnosis) - 05/12/21 Attending Physician: Jacky Garvey MD Allergies, Adverse Reactions, Alerts Substance Reaction Severity Status sulfADIAZINE redness Active Immunizations Given and Recorded Vaccine Date Status Refusal Reason SARS-CoV-2 (COVID-19) mRNA-1273 vaccine 02/23/21 R ecorded SARS-CoV-2 (COVID-19) mRNA-1273 vaccine 01/26/21 R ecorded influenza virus vaccine, inactivated 10/27/20 Give n influenza virus vaccine, inactivated 1 06/27/18 Re corded influenza virus vaccine, inactivated 07/30/17 Nikhil rded influenza virus vaccine, inactivated 08/17/16 Nikhil rded pneumococcal 13-valent vaccine 08/06/19 Given pneumococcal 13-valent vaccine 07/04/18 Recorded Influenza Virus Vaccine (oldterm) 06/19/19 Recorde d Tetanus Toxoid 10/02/18 Given pneumococcal 23-valent vaccine 2 07/04/18 Recorded [facility] Medications atorvastatin 40 mg oral tablet 1 tablet = 40 mg, By Mouth, Daily, # 90 tablet, 3 Refills, Maintenance, 05/17/21 9:54:00 EDT, [facility] Partial fill upon patient request if the prescription is for a schedule II opioid drug., 170, cm, 05/16/21 13:42:00 ED... Start Date: 05/17/21 Status: Ordered CoQ10 = 300 mg, By Mouth, Daily, 0 Refills, Maintenance, 12/13/15 7:13:13 Start Date: 12/13/15 Status: Ordered Freestyle Lite Test Strips See Instructions, 2 times a day, # 100 each, Refills 4, Tot. Refills 4, Maintenance, E11.9, test QD, 10/27/20 14:20:00 EST, Compound, 170, cm, 10/27/20 13:38:00 EST, Height Start Date: 10/27/20 Status: Ordered lisinopril 10 mg oral tablet See Instructions, TAKE 1 TABLET EVERY DAY, # 90 tablet, Refills 0, Maintenance, Instructions Replace Required Details, Route to Pharmacy Electronically, [email or web address], 170, cm, 10/27/20 13:38:00 EST, Height Start Date: 03/16/21 Status: Ordered metFORMIN 500 mg oral tablet See Instructions, TAKE 1 TABLET TWICE DAILY, # 180 tablet, 0 Refills, Maintenance, [facility], 170, cm, 10/27/20 13:38:00 EST, Height Start Date: 04/06/21 Status: Ordered Multivitamin Tablet 1 tablet, By Mouth, Daily, 0 Refills, Maintenance, 12/13/15 7:12:56, Tablet Start Date: 12/13/15 Status: Ordered omeprazole 20 mg oral delayed release tablet 1 tablet = 20 mg, By Mouth, Daily, 0 Refills, Maintenance, 04/25/18 14:29:12 EDT Start Date: 04/25/18 Status: Ordered Problem List Condition Effective Dates Status Health Status Inform ant BPH without obstruction/lowe r urinary tract symptoms(Confirmed) Active Chronic renal impairment, st age 5 (moderate)(Confirmed) Active Mild nonproliferative diabet ic retinopathy of both eyes(Confirmed) Active First degree heart block(Confirmed) Active History of bleeding peptic u lcer 2015(Confirmed) Active Macrocytosis without anemia normal b12/folate/tsh(Confirmed) 1 Active Onychomycosis(Confirmed) Active Osteopenia bmd 2017(Confirmed) 2 05/02/18 Active Encounter for monitoring earnest g-term proton pump inhibitor therapy(Confirmed) Active PAD (peripheral artery disea se) atherectomy 2015(Confirmed) Active PA (psoriatic arthritis)(Confirmed) Active Type 2 diabetes with nephropathy(Confirmed) Active Type 2 diabetes mellitus PAD ;declines statin(Confirmed) Active 1normal b12/folate/vtsh 2frax 17/6.1 Diagnosis Diagnosis Type Effective Dates Health Status Clinical Service Informant Medicare annual wellness visit, subsequent Discharge Diagnosis 05/12/21 Type 2 diabetes with nephropathy Discharge Diagnosis 05/12/21 Type 2 diabetes mellitus PAD;declines statin Discharge Diagnosis 05/12/21 PAD (peripheral artery disease) atherectomy 2015 Discharge Diagnosis 05/12/21 Chronic renal impairment, stage 3 (moderate) Discharge Diagnosis 05/12/21 Macrocytosis without anemia normal b12/folate/tsh Discharge Diagnosis 05/12/21 Mild nonproliferative diabetic retinopathy of both eyes Discharge Diagnosis 05/12/21 History of bleeding peptic ulcer 2015 Discharge Diagnosis 05/12/21 Encounter for monitoring long-term proton pump inhibitor therapy Discharge Diagnosis 05/12/21 Osteopenia bmd 2017 Discharge Diagnosis 05/12/21 PA (psoriatic arthritis) Discharge Diagnosis 05/12/21 Vital Signs Most recent to oldest [Reference Range]: 1 Height 170 cm (05/16/21 1:42 PM) Weight 72.5 kg (05/16/21 1:42 PM) Oxygen Saturation [94-100 %] 97 % (05/16/21 1:42 PM) Pulse Rate [55-90 bpm] 74 bpm (05/16/21 1:42 PM) Body Mass Index [18.5-24.99] 25.09 *H* (05/16/21 1:42 PM) Blood Pressure [90-138/55-84 mm Hg] 136/ 66mm Hg (05/16/21 1:42 PM) Temperature [96.8-100.4 DegF] 98.1 DegF (05/16/21 1:42 PM) Blood pressure sites Arm, left (05/16/21 1:42 PM) Social History Social History Type Response Smoking Status Former smoker; Other : quit 49 yr old; entered on: 04/25/18 Sex
--- OUTSIDE RECORDS SUMMARY | 2022-12-31 22:51 | XMS_ITS | Continuity of Care Document ---
Author Name Unknown Organization [facility] Ezra Vinod lt Address [address] [place] [address]- Care Team Providers Care Financial Planner Name Role Phone Jacky Garvey MD Primary Care Physician [facility] Date(s): 02/20/22 - 02/27/22 [facility] Adult [address] [place] [address]- Encounter Diagnosis Mild nonproliferative diabetic retinopathy of both eyes(Discharge Diagnosis) - 02/16/22 Type 2 diabetes mellitus PAD;(Discharge Diagnosis) - 02/20/22 History of bleeding peptic ulcer 2015(Discharge Diagnosis) - 02/16/22 Encounter for monitoring long-term proton pump inhibitor therapy(Discharge Diagnosis) - 02/16/22 Osteopenia bmd 2018(Discharge Diagnosis) - 02/16/22 Type 2 diabetes with nephropathy(Discharge Diagnosis) - 02/16/22 Attending Physician: Jacky Garvey MD Allergies, Adverse Reactions, Alerts Substance Reaction Severity Status sulfADIAZINE redness Active atorvastatin 1 Active 1myalgia Immunizations Given and Recorded Vaccine Date Status Refusal Reason influenza virus vaccine, inactivated 08/09/21 Nikhil rded influenza virus vaccine, inactivated 10/27/20 Give n influenza virus vaccine, inactivated 1 06/27/18 Re corded influenza virus vaccine, inactivated 07/30/17 Nikhil rded influenza virus vaccine, inactivated 08/17/16 Nikhil rded SARS-CoV-2 (COVID-19) mRNA-1273 vaccine 02/23/21 R ecorded SARS-CoV-2 (COVID-19) mRNA-1273 vaccine 01/26/21 R ecorded pneumococcal 13-valent vaccine 08/06/19 Given pneumococcal 13-valent vaccine 07/04/18 Recorded Influenza Virus Vaccine (oldterm) 06/19/19 Recorde d Tetanus Toxoid 10/02/18 Given pneumococcal 23-valent vaccine 2 07/04/18 Recorded [facility] Medications atorvastatin 40 mg oral tablet 1 tablet = 40 mg, By Mouth, Every Sunday and , # 26 tablet, 3 Refills, Maintenance, 02/20/22 14:16:00 EDT, [facility], Partial fill upon patient request if the prescriptionis for a schedule II opioid drug., 170, cm, ... Start Date: 02/20/22 Status: Ordered CoQ10 = 300 mg, By Mouth, Daily, 0 Refills, Maintenance, 12/13/15 7:13:13 Start Date: 12/13/15 Status: Ordered Freestyle Lite Test Strips See Instructions, 2 times a day, # 100 each, Refills 3, Tot. Refills 3, Maintenance, CHECK BLOOD SUGARS ONCE A DAY DM TYPE 2 E11.9, 12/27/21 11:29:00 EDT, Compound, 170, cm, 08/17/21 14:47:00 EST, Height Start Date: 12/27/21 Status: Ordered lisinopril 20 mg oral tablet 20 mg, 1, tablet, By Mouth, Daily, # 90 tablet, Refills 1, Tot. Refills 1, Maintenance, 02/20/22 14:17:00 EDT, Route to Pharmacy Electronically, [facility], Partial fill upon patient request if the prescription is for a schedule II... Start Date: 02/20/22 Status: Ordered metFORMIN 500 mg oral tablet 1 tablet, By Mouth, 2 times a day, # 180 tablet, 1 Refills, [facility], 170, cm,08/17/21 14:47:00 EST, Height Start Date: 12/05/21 Status: Ordered Multivitamin Tablet 1 tablet, By Mouth, Daily, 0 Refills, Maintenance, 12/13/15 7:12:56, Tablet Start Date: 12/13/15 Status: Ordered omeprazole 20 mg oral delayed release tablet 1 tablet = 20 mg, By Mouth, Daily, 0 Refills, Maintenance, 04/25/18 14:29:12 EDT Start Date: 04/25/18 Status: Ordered Vitamin B12 0 Refills, Maintenance, 02/20/22 14:11:00 EDT, Partial fill upon patient request if the prescription is for a schedule II opioid drug. Start Date: 02/20/22 Status: Ordered Problem List Condition Effective Dates Status Health Status Inform ant BPH without obstruction/lowe r urinary tract symptoms(Confirmed) Active Mild nonproliferative diabet ic retinopathy of [...] with nephropathy(Confirmed) Active Type 2 diabetes mellitus PAD;(Confirmed) Active 1normal b12/folate/vtsh 2frax 17/6.1 Diagnosis Diagnosis Type Effective Dates Health Status Clinical Service Informant Type 2 diabetes with nephropathy Discharge Diagnosis 02/16/22 Mild nonproliferative diabetic retinopathy of both eyes Discharge Diagnosis 02/16/22 Osteopenia bmd 2017 Discharge Diagnosis 02/16/22 History of bleeding peptic ulcer 2015 Discharge Diagnosis 02/16/22 Encounter for monitoring long-term proton pump inhibitor therapy Discharge Diagnosis 02/16/22 Type 2 diabetes mellitus PAD; Discharge Diagnosis 02/20/22 Vital Signs Most recent to oldest [Reference Range]: 1 2 Height 170 cm (02/20/22 2:19 PM) 170 cm (02/20/22 1:38 PM) Weight 74.4 kg (02/20/22 1:38 PM) Oxygen Saturation [94-100 %] 100 % (02/20/22 1:38 PM) Pulse Rate [55-90 bpm] 67 bpm (02/20/22 1:38 PM) Body Mass Index [18.5-24.99] 25.74 *H* (02/20/22 1:38 PM) Blood Pressure [90-138/55-84 mm Hg] 123/ 60mm Hg (02/20/22 2:19 PM) 143/71mm Hg *H* (02/20/22 1:38 PM) Temperature [96.8-100.4 DegF] 98 DegF (02/20/22 1:38 PM) Blood pressure sites Arm, left (02/20/22 2:19 PM) Arm, right (02/20/22 1:38 PM) Temperature Route Oral (02/20/22 1:38 PM) Weight Obtained Via Standing scale (02/20/22 1:38 PM) Social History Social History Type Response Smoking Status Former smoker; Other : quit 49 yr old; entered on: 04/25/18 Sex
--- OUTSIDE RECORDS SUMMARY | 2022-12-31 22:51 | XMS_ITS | Continuity of Care Document ---
Author Name Unknown Organization [facility] Lul Munguia Vinod lt Address [address] [place] [address]- Care Team Providers Care Mat Making Machine Tender Name Role Phone Jacky Garvey MD Primary Care Physician Encounter [facility] Date(s): 04/26/20 - 05/03/20 [facility] Adult [address] [place] [address]- [facility] Encounter Diagnosis Medicare annual wellness visit, subsequent(Discharge Diagnosis) - 04/25/20 PAD (peripheral artery disease) atherectomy 2016(Discharge Diagnosis) - 04/25/20 Type 2 diabetes with nephropathy(Discharge Diagnosis) - 04/25/20 Mild nonproliferative diabetic retinopathy of both eyes(Discharge Diagnosis) - 04/25/20 Chronic renal impairment, stage 3 (moderate)(Discharge Diagnosis) - 04/25/20 History of bleeding peptic ulcer 2016(Discharge Diagnosis) - 04/25/20 Encounter for monitoring long-term proton pump inhibitor therapy(Discharge Diagnosis) - 04/25/20 Macrocytosis without anemia normal b12/folate/tsh(Discharge Diagnosis) - 04/25/20 Osteopenia(Discharge Diagnosis) - 04/25/20 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 symptoms(Discharge Diagnosis) - 04/25/20 PA (psoriatic arthritis)(Discharge Diagnosis) - 04/26/20 Attending Physician: Jacky Garvey MD Allergies, Adverse Reactions, Alerts Substance Reaction Severity Status sulfADIAZINE redness Active Immunizations Given and Recorded Vaccine Date Status Refusal Reason pneumococcal 13-valent vaccine 08/06/19 Given Influenza Virus Vaccine (oldterm) 06/19/19 Recorde d Tetanus Toxoid 10/02/18 Given pneumococcal 23-valent vaccine 1 07/04/18 Recorded influenza virus vaccine, inactivated 2 06/27/18 Re corded influenza virus vaccine, inactivated 07/30/17 Nikhil rded 1Location History: [facility] Cimzia 200 mg subcutaneous kit Subcutaneous Infusion, Every 30 days, 0 Refills, Maintenance, 04/25/18 14:30:07 EDT Start Date: 04/25/18 Status: Ordered CoQ10 = 300 mg, By Mouth, Daily, 0 Refills, Maintenance, 12/13/15 7:13:13 Start Date: 12/13/15 Status: Ordered Freestyle Lite Test Strips See Instructions, 2 times a day, # 100 each, Refills 4, Tot. Refills 4, Maintenance, E11.9, test QD, 10/23/19 10:20:00 EST, Compound, 170, cm, 10/22/19 13:29:00 EST, Height Start Date: 10/23/19 Status: Ordered lisinopril 5 mg oral tablet 5 mg, 1, tablet, By Mouth, Daily, # 90 tablet, Refills 3, Tot. Refills 3, Maintenance, 03/01/20 11:33:00 EDT, Route to Pharmacy Electronically, [facility], 170, cm, 10/22/19 13:29:00 EST, Height Start Date: 03/01/20 Status: Ordered metFORMIN 500 mg oral tablet 1 tablet = 500 mg, By Mouth, 2 times a day, # 180 tablet, 0 Refills, Maintenance, 03/01/20 11:33:00EDT, Tablet, [facility], 170, cm, 10/22/19 13:29:00 EST, Height Start Date: 03/01/20 Status: Ordered Multivitamin Tablet 1 tablet, By [...] anemia normal b12/folate/tsh(Confirmed) 1 Active Onychomycosis(Confirmed) Active Osteopenia(Confirmed) 2 05/02/18 Active Encounter for monitoring earnest g-term proton pump inhibitor therapy(Confirmed) Active PAD (peripheral artery disea se) atherectomy 2015(Confirmed) Active PA (psoriatic arthritis)(Confirmed) Active Type 2 diabetes with nephropathy(Confirmed) Active Type 2 diabetes mellitus wit h diabetic peripheral angiopathy without gangrene, without long-term current use of insulin(Confirmed) Active 1normal b12/folate/vtsh 2frax 17/6.1 Diagnosis Diagnosis Type Effective Dates Health Status Clinical Service Informant Medicare annual wellness visit, subsequent Discharge Diagnosis 04/25/20 PAD (peripheral artery disease) atherectomy 2015 Discharge Diagnosis 04/25/20 Type 2 diabetes with nephropathy Discharge Diagnosis 04/25/20 Mild nonproliferative diabetic retinopathy of both eyes Discharge Diagnosis 04/25/20 Chronic renal impairment, stage 3 (moderate) Discharge Diagnosis 04/25/20 History of bleeding peptic ulcer 2015 Discharge Diagnosis 04/25/20 Encounter for monitoring long-term proton pump inhibitor therapy Discharge Diagnosis 04/25/20 Macrocytosis without anemia normal b12/folate/tsh Discharge Diagnosis 04/25/20 Osteopenia Discharge Diagnosis 04/25/20 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 symptoms Discharge Diagnosis 04/25/20 PA (psoriatic arthritis) Discharge Diagnosis 04/26/20 Vital Signs Most recent to oldest [Reference Range]: 1 Height 170 cm (04/26/20 1:35 PM) Weight 76.7 kg (04/26/20 1:35 PM) Oxygen Saturation [94-100 %] 98 % (04/26/20 1:35 PM) Pulse Rate [55-90 bpm] 16 bpm *L* (04/26/20 1:35 PM) Body Mass Index [18.5-24.99] 26.54 *H* (04/26/20 1:35 PM) Blood Pressure [90-138/55-84 mm Hg] 136/ 60mm Hg (04/26/20 1:35 PM) Respiratory Rate [16-30 br/min] 16 br/mi n (04/26/20 1:35 PM) Temperature [96.8-100.4 DegF] 99.6 DegF (04/26/20 1:35 PM) Blood pressure sites Arm, left (04/26/20 1:35 PM) Temperature Route Oral (04/26/20 1:35 PM) Social History Social History Type Response Smoking Status Former smoker; Other : quit 49 yr old; entered on: 04/25/18 Sex
--- OUTSIDE RECORDS SUMMARY | 2022-12-31 22:51 | XMS_ITS | Continuity of Care Document ---
Author Name Unknown Organization [facility] Ezra Vinod lt Address [address] [place] [address]- Care Team Providers Care Drawing In Machine Tender Helper Name Role Phone Jacky Garvey MD Primary Care Physician [phone] Encounter [facility] [place] Date(s): 10/22/19 - 10/29/19 [facility] Adult [address] [place] [address]- [facility] Encounter Diagnosis Type 2 diabetes mellitus with diabetic peripheral angiopathy without gangrene, without long-term current use of insulin(Discharge Diagnosis) - 10/19/19 Type 2 diabetes with nephropathy(Discharge Diagnosis) - 10/19/19 PAD (peripheral artery disease) atherectomy 2016(Discharge Diagnosis) - 10/19/19 Chronic renal impairment, stage 3 (moderate)(Discharge Diagnosis) - 10/19/19 Macrocytosis without anemia normal b12/folate/tsh(Discharge Diagnosis) - 10/19/19 Osteopenia(Discharge Diagnosis) - 10/19/19 History of bleeding peptic ulcer 2016(Discharge Diagnosis) - 10/19/19 Encounter for monitoring long-term proton pump inhibitor therapy(Discharge Diagnosis) - 10/19/19 Attending Physician: Jacky Garvey MD Allergies, Adverse [...] tablet, Refills 3, Tot. Refills 3, Maintenance, 05/13/19 13:35:46 EDT, Route to Pharmacy Electronically, [id number], [facility] Mail Delivery Start Date: 05/13/19 Status: Ordered metFORMIN 500 mg oral tablet 1 tablet = 500 mg, By Mouth, 2 times a day, # 180 tablet, 1 Refills, Maintenance, 05/13/19 12:45:10EDT, Tablet Start Date: 05/13/19 Status: Ordered Multivitamin Tablet 1 tablet, By [...] renal impairment, st age 5 (moderate)(Confirmed) Active First degree heart block(Confirmed) Active History [...] Status Clinical Service Informant Type 2 diabetes mellitus with diabetic peripheral angiopathy without gangrene, without long-term current use of insulin Discharge Diagnosis 10/19/19 Type 2 diabetes with nephropathy Discharge Diagnosis 10/19/19 PAD (peripheral artery disease) atherectomy 2016 Discharge Diagnosis 10/19/19 Chronic renal impairment, stage 3 (moderate) Discharge Diagnosis 10/19/19 Macrocytosis without anemia normal b12/folate/tsh Discharge Diagnosis 10/19/19 Osteopenia Discharge Diagnosis 10/19/19 History of bleeding peptic ulcer 2015 Discharge Diagnosis 10/19/19 Encounter for monitoring long-term proton pump inhibitor therapy Discharge Diagnosis 10/19/19 Vital Signs Most recent to oldest [Reference Range]: 1 Height 170 cm (10/22/19 1:29 PM) Weight 74.6 kg (10/22/19 1:29 PM) Oxygen Saturation [94-100 %] 98 % (10/22/19 1:29 PM) Pulse Rate [55-90 bpm] 64 bpm (10/22/19 1:29 PM) Body Mass Index [18.5-24.99] 25.81 *H* (10/22/19 1:29 PM) Blood Pressure [90-138/55-84 mm Hg] 124/ 56mm Hg (10/22/19 1:29 PM) Respiratory Rate [16-30 br/min] 16 br/mi n (10/22/19 1:29 PM) Temperature [96.8-100.4 DegF] 98.1 DegF (10/22/19 1:29 PM) Blood pressure sites Arm, left (10/22/19 1:29 PM) Temperature Route Oral (10/22/19 1:29 PM) Social History Social History Type Response Smoking Status Former smoker; Other : quit 49 yr old; entered on: 04/25/18 Sex
--- OUTSIDE RECORDS SUMMARY | 2022-12-31 22:51 | XMS_ITS | Continuity of Care Document ---
Author Name Unknown Organization [facility] Ezra Vinod lt Address [address] [place] [address]- Care Team Providers Care Group Fitness Assistant Department Head Name Role Phone Mare VINSON, Jacky Heard Primary Care Physician [phone] [facility]counter [facility] Date(s): 05/24/20 - 06/23/20 [facility] Adult [address] [place] [address]- [facility] Allergies, Adverse Reactions, Alerts Substance Reaction Severity [...] Height Start Date: 10/23/19 Status: Ordered lisinopril 10 mg oral tablet 10 mg, 1, tablet, By Mouth, Daily, # 90 tablet, Refills 3, Tot. Refills 3, Maintenance, 05/25/20 8:00:00 EDT, Route to Pharmacy Electronically, [facility] Mail [facility], 170, cm, 04/26/20 13:35:00 EDT, Height Start Date: 05/25/20 Status: Ordered metFORMIN 500 mg oral tablet 1 tablet = 500 mg, By Mouth, 2 times a day, # 180 tablet, 0 Refills, Maintenance, 06/18/20 8:45:00 EDT, Tablet, [facility], 170, cm, 04/26/20 13:35:00 EDT, Height Start Date: 06/18/20 Status: Ordered Multivitamin Tablet 1 tablet, By [...] of insulin(Confirmed) Active 1normal b12/folate/vtsh 2frax 17/6.1 Social History Social History Type Response Smoking Status Former smoker; Other : quit 49 yr old; entered on: 04/25/18 Sex
--- OUTSIDE RECORDS SUMMARY | 2022-12-31 22:51 | XMS_ITS | Continuity of Care Document ---
Author Name Unknown Organization [facility] Lul Munguia Vinod lt Address [address] [place] [address]- Care Team Providers Care Sas Clinical Programmer Name Role Phone Jacky Garvey MD Primary Care Physician [phone] [place] [facility] [place] 10[place]27[place]20 - 11/03/20 [facility] Adult [address] [place] [address]- Encounter Diagnosis Type 2 diabetes mellitus with diabetic peripheral angiopathy without gangrene, without long-term current use of insulin(Discharge Diagnosis) - 10/26/20 Type 2 diabetes with nephropathy(Discharge Diagnosis) - 10/26/20 Mild nonproliferative diabetic retinopathy of both eyes(Discharge Diagnosis) - 10/26/20 Chronic renal impairment, stage 3 (moderate)(Discharge Diagnosis) - 10/26/20 Macrocytosis without anemia normal b12/folate/tsh(Discharge Diagnosis) - 10/26/20 History of bleeding peptic ulcer 2016(Discharge Diagnosis) - 10/26/20 Encounter for monitoring long-term proton pump inhibitor therapy(Discharge Diagnosis) - 10/26/20 Attending Physician: Jacky Garvey MD Allergies, Adverse Reactions, Alerts Substance Reaction Severity Status sulfADIAZINE redness Active Immunizations Given and Recorded Vaccine Date Status Refusal Reason influenza virus vaccine, inactivated 10/27/20 Give n influenza virus vaccine, inactivated 1 06/27/18 Re corded influenza virus vaccine, inactivated 07/30/17 Nikhil rded pneumococcal 13-valent vaccine 08/06/19 Given Influenza Virus Vaccine (oldterm) 06/19/19 Recorde d Tetanus Toxoid 10/02/18 Given pneumococcal 23-valent vaccine 2 07/04/18 Recorded [facility] Medications Cimzia 200 mg subcutaneous kit Subcutaneous [...] 05/25/20 8:00:00 EDT, Route to Pharmacy Electronically, [facility], 170, cm, 04/26/20 13:35:00 EDT, Height Start Date: 05/25/20 Status: Ordered metFORMIN 500 mg oral tablet 1 tablet = 500 mg, By Mouth, 2 times a day, # 180 tablet, 0 Refills, Maintenance, 08/18/20 14:36:00EST, Tablet, [facility], 170, cm, 04/26/20 13:35:00 EDT, Height Start Date: 08/18/20 Status: Ordered Multivitamin Tablet 1 tablet, By [...] Active PAD (peripheral artery disea se) atherectomy 2016(Confirmed) Active PA (psoriatic arthritis)(Confirmed) Active Type 2 diabetes with nephropathy(Confirmed) Active Type 2 diabetes mellitus PAD ;declines statin(Confirmed) Active 1normal b12/folate/vtsh 2frax 17/6.1 Diagnosis Diagnosis Type Effective Dates Health Status Clinical Service Informant Type 2 diabetes mellitus with diabetic peripheral angiopathy without gangrene, without long-term current use of insulin Discharge Diagnosis 10/26/20 Type 2 diabetes with nephropathy Discharge Diagnosis 10/26/20 Mild nonproliferative diabetic retinopathy of both eyes Discharge Diagnosis 10/26/20 Chronic renal impairment, stage 3 (moderate) Discharge Diagnosis 10/26/20 Macrocytosis without anemia normal b12/folate/tsh Discharge Diagnosis 10/26/20 History of bleeding peptic ulcer 2016 Discharge Diagnosis 10/26/20 Encounter for monitoring long-term proton pump inhibitor therapy Discharge Diagnosis 10/26/20 Vital Signs Most recent to oldest [Reference Range]: 1 Height 170 cm (10/27/20 1:38 PM) Weight 75.6 kg (10/27/20 1:38 PM) Pulse Rate [55-90 bpm] 80 bpm (10/27/20 1:38 PM) Body Mass Index [18.5-24.99] 26.16 *H* (10/27/20 1:38 PM) Blood Pressure [90-138/55-84 mm Hg] 130/ 64mm Hg (10/27/20 1:38 PM) Respiratory Rate [16-30 br/min] 16 br/mi n (10/27/20 1:38 PM) Blood pressure sites Arm, left (10/27/20 1:38 PM) Social History Social History Type Response Smoking Status Former smoker; Other : quit 49 yr old; entered on: 04/25/18 Sex
--- OUTSIDE RECORDS SUMMARY | 2022-12-31 22:51 | XMS_ITS | Continuity of Care Document ---
Author Name Unknown Organization [facility] Ezra Vinod lt Address [address] [place] [address]- Care Team Providers Care Painting Technician Name Role Phone Mare VINSON, Jacky Heard Primary Care Physician [phone] Encounter [facility] Date(s): 05/17/21 - 06/16/21 [facility] Adult [address] [place] [address]- Allergies, Adverse Reactions, Alerts Substance Reaction Severity [...] [facility] Medications CoQ10 = 300 mg, By Mouth, Daily, [...] Replace Required Details, Route to Pharmacy Electronically, [facility], 170, cm, 10/27/20 13:38:00 EST, Height Start Date: 03/16/21 Status: Ordered metFORMIN 500 mg oral tablet See Instructions, TAKE 1 TABLET TWICE DAILY, # 180 tablet, 0 Refills, Maintenance, [facility], 170, cm, 10/27/20 13:38:00 [...] PAD ;declines statin(Confirmed) Active 1normal b12/folate/vtsh 2frax /.1 Social History Social History Type Response Smoking Status Former smoker; Other : quit 49 yr old; entered on: 04/25/18 Sex
--- OUTSIDE RECORDS SUMMARY | 2022-12-31 22:51 | XMS_ITS | Continuity of Care Document ---
Author Name Unknown Organization [facility] Lul Munguia Vinod lt Address [address] [place] [address]- Care Team Providers Care Cone Runner Name Role Phone Jacky Garvey MD Primary Care Physician [facility] Date(s): 05/23/22 - 05/30/22 [facility] Adult [address] [place] [address]- Encounter Diagnosis Medicare annual wellness visit, subsequent(Discharge Diagnosis) - 05/20/22 Type 2 diabetes mellitus PAD;(Discharge Diagnosis) - 05/20/22 Type 2 diabetes with nephropathy(Discharge Diagnosis) - 05/20/22 Mild nonproliferative diabetic retinopathy of both eyes(Discharge Diagnosis) - 05/20/22 Macrocytosis without anemia normal b12/folate/tsh(Discharge Diagnosis) - 05/20/22 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 symptoms(Discharge Diagnosis) - 05/20/22 Osteopenia bmd (Discharge Diagnosis) - 05/20/22 History of bleeding peptic ulcer 2016(Discharge Diagnosis) - 05/20/22 Encounter for monitoring long-term proton pump inhibitor therapy(Discharge Diagnosis) - 05/20/22 PA (psoriatic arthritis)(Discharge Diagnosis) - 05/20/22 Onychomycosis(Discharge Diagnosis) - 05/23/22 Impacted cerumen of both ears(Discharge Diagnosis) - 05/23/22 Attending Physician: Jacky Garvey MD Allergies, Adverse Reactions, Alerts Substance Reaction Severity Status sulfADIAZINE redness Active atorvastatin 1 Active 1myalgia Immunizations Given and Recorded Vaccine Date Status Refusal Reason SARS-CoV-2 (COVID-19) mRNA-1273 vaccine 09/18/21 R ecorded SARS-CoV-2 (COVID-19) mRNA-1273 vaccine 02/23/21 R ecorded SARS-CoV-2 (COVID-19) mRNA-1273 vaccine 01/26/21 R ecorded influenza virus vaccine, inactivated 08/09/21 Nikhil rded [...] tablet, 3 Refills, Maintenance, 02/20/22 14:16:00 EDT, [facility] Mail [facility], Partial fill upon patient [...] 02/20/22 14:17:00 EDT, Route to Pharmacy Electronically, [facility], Partial fill upon patient request if the prescription is for a schedule II... Start Date: 02/20/22 Status: Ordered metFORMIN 500 mg oral tablet 1 tablet, By Mouth, 2 times a day, # 180 tablet, 0 Refills, Maintenance, 05/29/22 13:01:00 EDT, [facility] (Now [facility]), 170, cm, 05/23/22 14:41:00 EDT, Height Start Date: 05/29/22 Status: Ordered Multivitamin Tablet 1 tablet, By Mouth, Daily, 0 Refills, Maintenance, 12/13/15 7:12:56, Tablet Start Date: 12/13/15 Status: Ordered omeprazole 20 mg oral delayed release tablet 1 tablet = 20 mg, By Mouth, Daily, 0 Refills, Maintenance, 04/25/18 14:29:12 EDT Start Date: 04/25/18 Status: Ordered sodium polystyrene sulfonate 15 g/60 mL oral and rectal suspension See Instructions, 60 mL By Mouthonce a week separate from other oral medications by at least 3 hours, # 240 mL, 4 Refills, Maintenance, 05/25/22 7:11:00 EDT, Suspension, [facility]/pharmacy #[id number], Partial fill upon patient request if the prescription is for... Start Date: 05/25/22 Status: Ordered Vitamin B12 0 Refills, Maintenance, [...] b12/folate/tsh(Confirmed) 1 Active Onychomycosis(Confirmed) Active Osteopenia bmd (Confirmed) 2 05/02/18 Active Encounter for monitoring earnest g-term proton pump inhibitor therapy(Confirmed) Active PAD (peripheral artery disea se) atherectomy 2015(Confirmed) Active PA (psoriatic arthritis)(Confirmed) Active Type 2 diabetes with nephropathy(Confirmed) Active Type 2 diabetes mellitus PAD;(Confirmed) Active 1normal b12/folate/vtsh 2frax 17/6.1 Diagnosis Diagnosis Type Effective Dates Health Status Clinical Service Informant Medicare annual wellness visit, subsequent Discharge Diagnosis 05/20/22 Type 2 diabetes mellitus PAD; Discharge Diagnosis 05/20/22 Type 2 diabetes with nephropathy Discharge Diagnosis 05/20/22 Mild nonproliferative diabetic retinopathy of both eyes Discharge Diagnosis 05/20/22 Macrocytosis without anemia normal b12/folate/tsh Discharge Diagnosis 05/20/22 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 symptoms Discharge Diagnosis 05/20/22 Osteopenia bmd Discharge Diagnosis 05/20/22 History of bleeding peptic ulcer 2015 Discharge Diagnosis 05/20/22 Encounter for monitoring long-term proton pump inhibitor therapy Discharge Diagnosis 05/20/22 PA (psoriatic arthritis) Discharge Diagnosis 05/20/22 Onychomycosis Discharge Diagnosis 05/23/22 Impacted cerumen of both ears Discharge Diagnosis 05/23/22 Vital Signs Most recent to oldest [Reference Range]: 1 2 Height 170 cm (05/23/22 2:41 PM) 170 cm (05/23/22 2:24 PM) Weight 74.5 kg (05/23/22 2:24 PM) Oxygen Saturation [94-100 %] 99 % (05/23/22 2:24 PM) Pulse Rate [55-90 bpm] 86 bpm (05/23/22 2:24 PM) Body Mass Index [18.5-24.99] 25.78 *H* (05/23/22 2:24 PM) Blood Pressure [90-138/55-84 mm Hg] 118/ 78mm Hg (05/23/22 2:41 PM) 164/65mm Hg *H* (05/23/22 2:24 PM) Respiratory Rate [16-30 br/min] 16 br/mi n (05/23/22 2:24 PM) Temperature [96.8-100.4 DegF] 98.3 DegF (05/23/22 2:24 PM) Mode of Delivery (Oxygen) Room air (05/23/22 2:24 PM) Blood pressure sites Arm, left (05/23/22 2:41 PM) Arm, left (05/23/22 2:24 PM) Temperature Route Oral (05/23/22 2:24 PM) Weight Obtained Via Standing scale (05/23/22 2:24 PM) Social History Social History Type Response Smoking Status Former smoker; Other : quit 49 yr old; entered on: 04/25/18 Sex Care Team Personnel Name: Mare VINSON, Jcaky Heard Address: [address] [place] [id number]
--- OUTSIDE RECORDS SUMMARY | 2022-12-31 22:51 | XMS_ITS | Continuity of Care Document ---
Author Name Unknown Organization [facility] Vinod lt Address [address] [place] [address]- Care Team Providers Care Applications Systems Engineer Name Role Phone Mare VINSON, Jacky Heard Primary Care Physician [facility]counter [facility] Date(s): 05/17/21 - 06/16/21 [facility] Adult [address] [place] [address]- Allergies, Adverse Reactions, Alerts Substance Reaction Severity [...] Replace Required Details, Route to Pharmacy Electronically, [facility], 170, cm, 10/27/20 13:38:00 EST, Height Start Date: 03/16/21 Status: Ordered metFORMIN 500 mg oral tablet See Instructions, TAKE 1 TABLET TWICE DAILY, # 180 tablet, 0 Refills, Maintenance, [facility], 170, cm, 10/27/20 13:38:00 [...] PAD ;declines statin(Confirmed) Active 1normal b12/folate/vtsh 2frax 17/.1 Social History Social History Type Response Smoking Status Former smoker; Other : quit 49 yr old; entered on: 04/25/18 Sex
--- OUTSIDE RECORDS SUMMARY | 2022-12-31 22:51 | XMS_ITS | Continuity of Care Document ---
Author Name Unknown Organization [facility] Address [address] [place] [address]- Care Team Providers Care Cold Storage Worker Name Role Phone Mare VINSON, Jacky Heard Primary Care Physician Encounter 03/10/22 - 03/17/22 [facility] [address], [address] [place] [address]- Attending Physician: Jacky Garvey MD Admitting Physician: Jacky Garvey MD Referring Physician: Jacky Garvey MD Allergies, Adverse Reactions, [...] tablet, 3 Refills, Maintenance, 02/20/22 14:16:00 EDT, [facility], Partial fill upon [...] 02/20/22 14:17:00 EDT, Route to Pharmacy Electronically, [facility], Partial fill upon patient request if the prescription is for a schedule II... Start Date: 02/20/22 Status: Ordered metFORMIN 500 mg oral tablet 1 tablet, By Mouth, 2 times a day, # 180 tablet, 1 Refills, [facility], 170, cm,08/17/21 14:47:00 EST, [...] diabetes mellitus PAD;(Confirmed) Active 1normal b12/folate/vtsh 2frax 17/03.1 Procedures Procedure Date Related Diagnosis Body Site Status DEXA of hip and spine osteopenia 03/16/22 Completed Results Radiology Reports * Exam Date Time Procedure Performing Provider Status 03/10/22 2:56 PM Dexa Bone Density (Axial) Wojciech Kim (Verified) Notes: (Dexa Bone Density (Axial)) Reason For Exam: Osteopenia RESULT: DEXA BONE DENSITY (AXIAL) Bone Density Report Name: MORGAN PHILLIPS Age: 81 Sex: Male Ethnicity: White Date of : 1940 Indication: Osteopenia Referring Provider: JACKY GARVEY Study: Bone densitometry was performed. Exam Date: March 10, 2022 Accession number: [id number] Bone Density: Region BMD T-score Z-score Classification AP Spine (L1-L4) 1.163 0.7 1.8 Normal Femoral Neck (Right) 0.641 -2.1 -0.6 Osteopenia Total Hip (Right) 0.753 -1.9 -0.8 Osteopenia Total Forearm (Left) 0.669 -0.3 1.4 1/3 Forearm (Left) 0.839 0.4 2.4 Normal UD Forearm (Left) 0.496 -0.9 0.8 World Health Organization criteria for BMD impression classify patients as: Normal (T-score at or above -1.0), Osteopenia (T-score between -1.0 and -2.5), or Osteoporosis (T-score at or below -2.5). 10-year Fracture Risk(1): Major Osteoporotic Fracture 12% Hip Fracture 5.3% Reported Risk Factors: [place] (), Neck BMD=0.641, BMI=23.7, rheumatoid arthritis (1) FRAX(R) Version 3.00. Fracture probability calculated for an untreated patient. Fracture probability may be lower if the patient has received treatment. Previous Exams: Region Exam Age BMD T-score BMD Change BMD Change Date g/cm2 vs Baseline vs Previous AP Spine(L1-L4) 03/10/2022 81 1.163 0.7 6.1%* 6.1%* 05/02/2018 77 1.096 0.0 Total Hip(Right) 03/10/2022 81 0.753 -1.9 -12.9%* -12.9%* 05/02/2018 77 0.864 -1.1 Femoral Neck(Right) 03/10/2022 81 0.641 -2.1 -1.9% -1.9% 05/02/2018 77 0.654 -2.0 1/3 Forearm(Left) 03/10/2022 81 0.839 0.4 2.3% 2.3% 05/02/2018 77 0.820 0.1 *Denotes significance at 95% confidence level, LSC for AP Spine = 0.022 g/cm2, LSC for Total Hip = 0.027 g/cm2, LSC for 1/3 Forearm = 0.023 g/cm2 Clinical Information Provided by Patient: Has rheumatoid arthritis Has used the following medications: Vitamin D, Calcium Patient maximum height was 70 Impression: Spine BMD values are excluded due to multilevel degenerative change with endplate sclerosis. The patient has osteopenia as determined by WHO criteria. Reported by: Juan Dueñas M.D. on 03/16/2022 2:28:00 PM. Dictated By: Juan Dueñas MD Dictated Date/Time: 03/16/22 2:30 pm Reviewed By: Juan Dueñas MD Signed By: Juan Dueñas MD Signed Date/Time: 03/16/22 2:30 pm Transcribed By: JUAN Transcribed Date/Time: 03/16/22 2:30 pm Social History Social History Type Response Smoking Status Former smoker; Other : quit 49 yr old; entered on: 04/25/18 Sex
--- OUTSIDE RECORDS SUMMARY | 2022-12-31 22:51 | XMS_ITS | Continuity of Care Document ---
Author Name Unknown Organization [facility] Ezra Vinod lt Address [address] [place] [address]- Care Team Providers Care Finance Business Manager Name Role Phone Mare VINSON, Jacky Heard Primary Care Physician [facility] 02[facility]17[facility]22 - 03/19/22 [facility] Adult [address] [place] [address]- Allergies, Adverse Reactions, Alerts Substance Reaction Severity [...] tablet, 3 Refills, Maintenance, 02/20/22 14:16:00 EDT, [facility], Partial fill [...] 02/20/22 14:17:00 EDT, Route to Pharmacy Electronically, [facility], Partial fill upon patient request if the prescription is for a schedule II... Start Date: 02/20/22 Status: Ordered metFORMIN 500 mg oral tablet 1 tablet, By Mouth, 2 times a day, # 180 tablet, 1 Refills, [facility], 170, cm,08/17/21 14:47:00 EST, [...] mellitus PAD;(Confirmed) Active 1normal b12/folate/vtsh 2frax 17/03.1 Social History Social History Type Response Smoking Status Former smoker; Other : quit 49 yr old; entered on: 04/25/18 Sex
--- OUTSIDE RECORDS SUMMARY | 2022-12-31 22:51 | XMS_ITS | Continuity of Care Document ---
Author Name Unknown Organization [facility] Ezra Vinod lt Address [address] [place] [address]- Care Team Providers Care Craft Center Director Name Role Phone Mare VINSON, Jacky Heard Primary Care Physician [phone] [facility] 06/18/20 - 07/18/20 [facility] Adult [address] [place] [address]- [facility] Allergies, Adverse Reactions, Alerts Substance Reaction Severity [...] 05/25/20 8:00:00 EDT, Route to Pharmacy Electronically, [facility], 170, cm, 04/26/20 13:35:00 EDT, Height Start Date: 05/25/20 Status: Ordered metFORMIN 500 mg oral tablet 1 tablet = 500 mg, By Mouth, 2 times a day, # 180 tablet, 0 Refills, Maintenance, 06/18/20 8:45:00 EDT, Tablet, [facility], 170, cm, 04/26/20 13:35:00 [...]
--- OUTSIDE RECORDS SUMMARY | 2022-12-31 22:51 | XMS_ITS | Continuity of Care Document ---
Author Name Unknown Organization [facility] Ezra Vinod lt Address [address] [place] [address]- Care Team Providers Care Division Supervisor Name Role Phone Mare VINSON, Jacky Heard Primary Care Physician [phone] [facility]s): 10/27/20 - 11/26/20 [facility] Adult [address] [place] [address]- Allergies, Adverse Reactions, Alerts Substance Reaction Severity [...] 05/25/20 8:00:00 EDT, Route to Pharmacy Electronically, [facility], 170, cm, 04/26/20 13:35:00 EDT, Height Start Date: 05/25/20 Status: Ordered metFORMIN 500 mg oral tablet 1 tablet = 500 mg, By Mouth, 2 times a day, # 180 tablet, 0 Refills, Maintenance, 08/18/20 14:36:00EST, Tablet, [facility], 170, cm, 04/26/20 13:35:00 [...]
--- OUTSIDE RECORDS SUMMARY | 2022-12-31 22:51 | XMS_ITS | Continuity of Care Document ---
Author Name Unknown Organization [facility] Ezra Vinod lt Address [address] [place] [address]- Care Team Providers Care Refuge Worker Name Role Phone Mare VINSON, Jacky Heard Primary Care Physician [facility]22 - 06/18/22 [facility] Adult [address] [place] [address]- Allergies, Adverse Reactions, Alerts Substance Reaction Severity Status sulfADIAZINE redness Active atorvastatin 1 Active Kayexalate 2 Active 1myalgia 2diarrhea Immunizations Given and Recorded Vaccine Date Status [...] tablet, 3 Refills, Maintenance, 02/20/22 14:16:00 EDT, [facility], Partial fill [...] 02/20/22 14:17:00 EDT, Route to Pharmacy Electronically, [facility], Partial fill upon patient request if the prescription is for a schedule II... Start Date: 02/20/22 Status: Ordered Lokelma 10 g oral powder for reconstitution 1 pack/packet, By Mouth, Daily, do not take within 2 hours of other medications, # 30 each, 6 Refills, Maintenance, 06/09/22 12:37:00 EDT, REC Powder, [facility] (Now [facility]), Partial fill upon patient req... Start Date: 06/09/22 Status: Ordered Lokelma 5 g oral powder for reconstitution 1 pack/packet, By Mouth, Daily, do not take within 2 hours of other medications, # 30 each, 4 Refills, Maintenance, 06/09/22 12:34:00 EDT, REC Powder, [facility] (Now [facility]), Partial fill upon patient req... Start Date: 06/09/22 Status: Ordered metFORMIN 500 mg oral tablet 1 tablet, By Mouth, 2 times a day, # 180 tablet, 0 Refills, Maintenance, 05/29/22 13:01:00 EDT, [facility] (Now [facility]), 170, cm, 05/23/22 14:41:00 [...] mellitus PAD;(Confirmed) Active 1normal b12/folate/vtsh 2frax 17/6.1 Social History Social History Type Response Smoking Status Former smoker; Other : quit 49 yr old; entered on: 04/25/18 Sex Care Team Personnel Name: Mare VINSON, Jacky Heard Address: [address] [place] [id number]
--- OUTSIDE RECORDS SUMMARY | 2022-12-31 22:51 | XMS_ITS | Continuity of Care Document ---
Author Name Unknown Organization [facility] Ezra Vinod lt Address [address] [place] [address]- Care Team Providers Care Interior Design Coordinator Name Role Phone Leni VINSON, Omi Olivares Primary Care Physician [facility]s): 08/22/22 - 09/21/22 [facility] Adult [address] [place] [address]- Allergies, Adverse Reactions, Alerts Substance Reaction Severity [...] tablet, 3 Refills, Maintenance, 02/20/22 14:16:00 EDT, [facility], Partial fill upon patient [...] Status: Ordered lisinopril 20 mg oral tablet 1, tablet, By Mouth, Daily, # 90 tablet, Refills 1, Tot. Refills 1, Maintenance, 08/27/22 7:19:00 EST, Route to Pharmacy Electronically, [facility], 170, cm, 05/23/22 14:41:00 EDT, Height Start Date: 08/27/22 Status: Ordered metFORMIN 500 mg oral tablet 1 tablet, By Mouth, 2 times a day, # 180 tablet, 0 Refills, Maintenance, 05/29/22 13:01:00 EDT, [facility] (Now [facility]), 170, cm, 05/23/22 14:41:00 EDT, Height Start Date: 05/29/22 Status: Ordered Multivitamin Tablet 1 tablet, By Mouth, Daily, 0 Refills, Maintenance, 12/13/15 7:12:56, Tablet Start Date: 12/13/15 Status: Ordered omeprazole 20 mg oral enteric coated capsule 1 capsule, By Mouth, Daily, # 90 capsule, 0 Refills, Maintenance, 08/27/22 7:18:00 EST, [facility], 170, cm, 05/23/22 14:41:00 EDT, Height Start Date: 08/27/22 Status: Ordered sodium polystyrene sulfonate 15 g/60 mL oral and rectal suspension See Instructions, 60 mL By Mouthonce a week separate from other oral medications by at least 3 hours, # 240 mL, 4 Refills, Maintenance, 06/26/22 14:36:00 EDT, Suspension, [facility]/pharm[facility] #[id number], Partial fill upon patient request if the prescription is fo... Start Date: 06/26/22 Status: Ordered Vitamin B12 0 Refills, Maintenance, 02/20/22 14:11:00 EDT, Partial fill upon patient request if the prescription is for a schedule II opioid drug. Start Date: 02/20/22 Status: Ordered Problem List Condition Confirmation Course Effective Dates Status H ealth Status Informant 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 symptoms Confirmed Active Chronic kidney disease, stage 3a 1 Confirmed Active Mild nonproliferative diabetic retinopathy of both eyes Confirmed Active First degree heart block Confirmed Active History of bleeding peptic ulcer 2015 Confirmed Active Macrocytosis without anemia normal b12/folate/tsh 2 Confirmed Active Onychomycosis Confirmed Active Osteopenia bmd 3 Confirmed 05/02/18 Active Encounter for monitoring long-term proton pump inhibitor therapy Confirmed Active PAD (peripheral artery disease) atherectomy 2015 Confirmed Active PA (psoriatic arthritis) Confirmed Active Type 2 diabetes with nephropathy Confirmed Active Type 2 diabetes mellitus PAD; Confirmed Active 1Per chart review meeting GFR criteria 2normal b12/folate/vtsh 3frax 17/03.1 Social History Social History Type Response Smoking Status Former smoker; Other : quit 49 yr old; entered on: 04/25/18 Sex Patient Care team information Care Team Personnel Name: Leni VINSON, Omi Olivares Position: S Primary Care Physician Member Role: PCP Address: Address: [address] [place] [address]- Care Team Related Persons Name: NEVAEH PHILLIPS Address: home [address] [place] [address]
--- OUTSIDE RECORDS SUMMARY | 2022-12-31 22:51 | XMS_ITS | Continuity of Care Document ---
Author Name Unknown Organization [facility] Ezra Vinod lt Address [address] [place] [address]- Care Team Providers Care Medical Records Tech Name Role Phone Mare VINSON, Jacky Heard Primary Care Physician [facility]): 04/27/20 - 05/27/20 [facility] Adult [address] [place] [address]- [facility] Allergies, Adverse Reactions, Alerts Substance Reaction Severity [...] 05/25/20 8:00:00 EDT, Route to Pharmacy Electronically, [facility], 170, cm, 04/26/20 13:35:00 EDT, Height Start Date: 05/25/20 Status: Ordered metFORMIN 500 mg oral tablet 1 tablet = 500 mg, By Mouth, 2 times a day, # 180 tablet, 0 Refills, Maintenance, 03/01/20 11:33:00EDT, Tablet, [facility], 170, cm, 10/22/19 13:29:00 [...]
--- OUTSIDE RECORDS SUMMARY | 2022-12-31 22:51 | XMS_ITS | Continuity of Care Document ---
Author Name Unknown Organization [facility] Ezra Vinod lt Address [address] [place] [address]- Care Team Providers Care Test Engineering Intern Name Role Phone Mare VINSON, Jacky Heard Primary Care Physician [phone] [facility] Date(s): 05/29/22 - 06/28/22 [facility] Adult [address] [place] [address]- Allergies, Adverse Reactions, Alerts Substance Reaction Severity [...] 02/20/22 14:17:00 EDT, Route to Pharmacy Electronically, [facility], Partial fill upon patient request if the prescription is for a schedule II... Start Date: 02/20/22 Status: Ordered metFORMIN 500 mg oral tablet 1 tablet, By Mouth, 2 times a day, # 180 tablet, 0 Refills, Maintenance, 05/29/22 13:01:00 EDT, [facility] (Now [facility]), 170, cm, 05/23/22 14:41:00 EDT, Height Start Date: 05/29/22 Status: Ordered Multivitamin Tablet 1 tablet, By Mouth, Daily, 0 Refills, Maintenance, 12/13/15 7:12:56, Tablet Start Date: 12/13/15 Status: Ordered omeprazole 20 mg oral delayed release tablet 1 tablet = 20 mg, By Mouth, Daily, # 90 tablet, 0 Refills, Maintenance, 06/20/22 21:00:00 EDT, EC Tablet, [facility], Partial fill upon patient request if the prescription is for a schedule II opioid drug., 170, cm, 05/23/22 14:... Start Date: 06/20/22 Status: Ordered sodium polystyrene sulfonate 15 g/60 mL oral and rectal suspension See Instructions, 60 mL By Mouthonce a week separate from other oral medications by at least 3 hours, # 240 mL, 4 Refills, Maintenance, 06/26/22 14:36:00 EDT, Suspension, [id number], Partial fill upon patient request if the [...] review meeting GFR criteria 2normal b12/folate/vtsh 3frax /.1 Social History Social History Type Response Smoking Status Former smoker; Other : quit 49 yr old; entered on: 04/25/18 Sex Patient Care team information Personnel Name: Mare VINSON, Jacky Heard Address: Address: [address] [place] [id number]
--- OUTSIDE RECORDS SUMMARY | 2022-12-31 22:51 | XMS_ITS | Continuity of Care Document ---
Author Name Unknown Organization [facility] Ezra Vinod lt Address [address] [place] [address]- Care Team Providers Care Equipment Engineer Name Role Phone Mare VINSON, Jacky Herad Primary Care Physician [phone] [facility]s): 07/08/22 - 08/07/22 [facility] [place] Adult [address] [place] [address]- Allergies, Adverse Reactions, Alerts Substance Reaction Severity [...] 02/20/22 14:17:00 EDT, Route to Pharmacy Electronically, [facility], Partial fill upon patient request if the prescription is for a schedule II... Start Date: 02/20/22 Status: Ordered metFORMIN 500 mg oral tablet 1 tablet, By Mouth, 2 times a day, # 180 tablet, 0 Refills, Maintenance, 05/29/22 13:01:00 EDT, [facility] (Now [facility]), 170, cm, 05/23/22 14:41:00 EDT, Height Start Date: 05/29/22 Status: Ordered Multivitamin Tablet 1 tablet, By Mouth, Daily, 0 Refills, Maintenance, 12/13/15 7:12:56, Tablet Start Date: 12/13/15 Status: Ordered omeprazole 20 mg oral delayed release tablet 1 tablet = 20 mg, By Mouth, Daily, # 90 tablet, 0 Refills, Maintenance, 06/20/22 21:00:00 EDT, EC Tablet, [facility], Partial fill [...] Refills, Maintenance, 06/26/22 14:36:00 EDT, Suspension, [id number], Partial fill upon patient request if [...] Care team information Care Team Personnel Name: Jacky Garvey MD Position: [facility] Primary Care Physician Member Role: PCP Address: Address: [address] [place] [address]- Care Team Related Persons Name: NEVAEH PHILLIPS Address: [address] [place] [address]
--- OUTSIDE RECORDS SUMMARY | 2022-12-31 22:51 | XMS_ITS | Continuity of Care Document ---
Author Name Unknown Organization [facility] Ezra Vinod lt Address [address] [place] [address]- Care Team Providers Care Die Trouble Shooter Name Role Phone Omi Farrar MD Primary Care Physician Encounter [facility] Date(s): 09/26/22 - 10/03/22 [facility] Adult [address] [place] [address]- Attending Physician: Omi Farrar MD Allergies, Adverse Reactions, Alerts Substance Reaction Severity Status sulfADIAZINE redness Active atorvastatin 1 Active 1myalgia Immunizations Given and Recorded Vaccine Date Status Refusal Reason influenza virus vaccine, inactivated 09/26/22 Give n influenza virus vaccine, inactivated 08/09/21 Nikhil rded influenza virus vaccine, inactivated 10/27/20 Give n influenza virus vaccine, inactivated 1 06/27/18 Re corded influenza virus vaccine, inactivated 07/30/17 Nikhil rded influenza virus vaccine, inactivated 08/17/16 Nikhil rded SARS-CoV-2 (COVID-19) mRNA-1273 vaccine 09/18/21 R ecorded [...] tablet, 3 Refills, Maintenance, 02/20/22 14:16:00 EDT, [facility], Partial fill upon [...] 08/27/22 7:19:00 EST, Route to Pharmacy Electronically, [facility], 170, cm, 05/23/22 14:41:00 EDT, Height Start Date: 08/27/22 Status: Ordered metFORMIN 500 mg oral tablet 1 tablet, By Mouth, 2 times a day, # 180 tablet, 0 Refills, Maintenance, 05/29/22 13:01:00 EDT, [facility] (Now [facility]), 170, cm, 05/23/22 14:41:00 EDT, Height Start Date: 05/29/22 Status: Ordered Multivitamin Tablet 1 tablet, By Mouth, Daily, 0 Refills, Maintenance, 12/13/15 7:12:56, Tablet Start Date: 12/13/15 Status: Ordered omeprazole 20 mg oral enteric coated capsule 1 capsule, By Mouth, Daily, # 90 capsule, 0 Refills, Maintenance, 08/27/22 7:18:00 EST, [facility], 170, cm, 05/23/22 14:41:00 EDT, Height Start Date: 08/27/22 Status: Ordered sodium polystyrene sulfonate 15 g/60 mL oral and rectal suspension See Instructions, 60 mL By Mouthonce a week separate from other oral medications by at least 3 hours, # 240 mL, 4 Refills, Maintenance, 06/26/22 14:36:00 EDT, Suspension, [facility]/pharmacy #[id number], Partial fill upon patient request if [...] meeting GFR criteria 2normal b12/folate/vtsh 3frax /.1 Vital Signs Most recent to oldest [Reference Range]: 1 2 Height 170 cm (09/26/22 2:26 PM) 170 cm (09/26/22 1:59 PM) Weight 74.5 kg (09/26/22 1:59 PM) Oxygen Saturation [94-100 %] 96 % (09/26/22 1:59 PM) Pulse Rate [55-90 bpm] 77 bpm (09/26/22 1:59 PM) Body Mass Index [18.5-24.99 kg/m2] 25.78 kg/m2 *H* (09/26/22 1:59 PM) Blood Pressure [90-138/55-84 mm Hg] 134/ 63mm Hg (09/26/22 2:26 PM) 136/62mm Hg (09/26/22 1:59 PM) Temperature [96.8-100.4 DegF] 97.9 DegF (09/26/22 1:59 PM) Mode of Delivery (Oxygen) Room air (09/26/22 1:59 PM) Blood pressure sites Arm, right (09/26/22 2:26 PM) Arm, right (09/26/22 1:59 PM) Temperature Route Oral (09/26/22 1:59 PM) Weight Obtained Via Standing scale (09/26/22 1:59 PM) Social History Social History Type Response Smoking Status Former smoker; Other : quit 49 yr old; entered on: 04/25/18 Sex Patient Care team information Care Team Personnel Name: Leni VINSON, Omi Olivares Position: S Primary Care Physician Member Role: PCP Address: Address: [address] [place] [address]- Care Team Related Persons Name: NEVAEH PHILLIPS Address: [address] [place] [address]
--- OUTSIDE RECORDS SUMMARY | 2022-12-31 22:51 | XMS_ITS | Continuity of Care Document ---
Author Name Unknown Organization [facility] Ezra Vinod lt Address [address] [place] [address]- Care Team Providers Care Skeins Yarn Examiner Name Role Phone Mare VINSON, Jacky Heard Primary Care Physician [facility]s): 06/20/22 - 07/20/22 [facility] Adult [address] [place] [address]- Allergies, Adverse Reactions, Alerts Substance Reaction Severity [...] 02/20/22 14:17:00 EDT, Route to Pharmacy Electronically, [facility], Partial fill upon patient request if the prescription is for a schedule II... Start Date: 02/20/22 Status: Ordered metFORMIN 500 mg oral tablet 1 tablet, By Mouth, 2 times a day, # 180 tablet, 0 Refills, Maintenance, 05/29/22 13:01:00 EDT, [email or web address] (Now [facility]), 170, cm, 05/23/22 14:41:00 EDT, Height Start Date: 05/29/22 Status: Ordered Multivitamin Tablet 1 tablet, By Mouth, Daily, 0 Refills, Maintenance, 12/13/15 7:12:56, Tablet Start Date: 12/13/15 Status: Ordered omeprazole 20 mg oral delayed release tablet 1 tablet = 20 mg, By Mouth, Daily, # 90 tablet, 0 Refills, Maintenance, 06/20/22 21:00:00 EDT, EC Tablet, [facility], Partial fill upon patient [...] Refills, Maintenance, 06/26/22 14:36:00 EDT, Suspension, [id number], Partial fill upon patient request if the [...] Name: Mare VINSON, Jacky Heard Address: Address: [address] [place] [id number]
--- OUTSIDE RECORDS SUMMARY | 2022-12-31 22:51 | XMS_ITS | Continuity of Care Document ---
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) - 08/15/21 Osteopenia bmd 2018(Discharge Diagnosis) - 08/15/21 History of bleeding peptic ulcer 2016(Discharge Diagnosis) - 08/15/21 Chronic renal impairment, stage 3 (moderate)(Discharge Diagnosis) - 08/15/21 PAD (peripheral artery disease) atherectomy 2015(Discharge Diagnosis) - 08/15/21 Encounter for monitoring long-term proton pump inhibitor therapy(Discharge Diagnosis) - 08/15/21 Attending Physician: Jacky Garvey MD Allergies, Adverse [...] tablet = 40 mg, By Mouth, Every Sunday, # 5 tablet, 0 Refills, Maintenance, 08/17/21 15:00:00 EST, Partial fill upon patient request if the prescription is for a schedule II opioid drug. Start Date: 08/17/21 Status: Ordered CoQ10 = 300 mg, By [...] EVERY DAY, # 90 tablet, Refills 0, Tot. Refills 0, 06/22/21 13:17:00 EDT, Instructions Replace Required Details, Route to Pharmacy Electronically, [facility], 170, cm, 05/16/21 13:42:00 EDT, Height Start Date: 06/22/21 Status: Ordered metFORMIN 500 mg oral tablet See Instructions, TAKE 1 TABLET TWICE DAILY, # 180 tablet, 0 Refills, 06/22/21 13:17:00 EDT, [facility], 170, cm, 05/16/21 13:42:00 EDT, Height Start Date: 06/22/21 Status: Ordered Multivitamin Tablet 1 tablet, By [...] b12/folate/tsh(Confirmed) 1 Active Onychomycosis(Confirmed) Active Osteopenia bmd 2018(Confirmed) 2 05/02/18 Active Encounter for monitoring earnest g-term proton pump inhibitor therapy(Confirmed) Active PAD (peripheral artery disea se) atherectomy 2016(Confirmed) Active PA (psoriatic arthritis)(Confirmed) Active Type 2 diabetes with nephropathy(Confirmed) Active Type 2 diabetes mellitus PAD ;declines statin(Confirmed) Active 1normal b12/folate/vtsh 2frax 17/03.1 Diagnosis Diagnosis Type Effective Dates Health Status Clinical Service Informant Type 2 diabetes mellitus PAD;declines statin Discharge Diagnosis 08/15/21 Type 2 diabetes with nephropathy Discharge Diagnosis 08/15/21 Mild nonproliferative diabetic retinopathy of both eyes Discharge Diagnosis 08/15/21 Osteopenia bmd 2017 Discharge Diagnosis 08/15/21 History of bleeding peptic ulcer 2015 Discharge Diagnosis 08/15/21 Chronic renal impairment, stage 3 (moderate) Discharge Diagnosis 08/15/21 PAD (peripheral artery disease) atherectomy 2015 Discharge Diagnosis 08/15/21 Encounter for monitoring long-term proton pump inhibitor therapy Discharge Diagnosis 08/15/21 Vital Signs Most recent to oldest [Reference Range]: 1 Height 170 cm (08/17/21 2:47 PM) Weight 73.4 kg (08/17/21 2:47 PM) Oxygen Saturation [94-100 %] 99 % (08/17/21 2:47 PM) Pulse Rate [55-90 bpm] 64 bpm (08/17/21 2:47 PM) Body Mass Index [18.5-24.99] 25.4 *H* (08/17/21 2:47 PM) Blood Pressure [90-138/55-84 mm Hg] 128/ 64mm Hg (08/17/21 2:47 PM) Temperature [96.8-100.4 DegF] 97.6 DegF (08/17/21 2:47 PM) Mode of Delivery (Oxygen) Room air (08/17/21 2:47 PM) Blood pressure sites Arm, left (08/17/21 2:47 PM) Temperature Route Oral (08/17/21 2:47 PM) Weight Obtained Via Standing scale (08/17/21 2:47 PM) Social History Social History Type Response Smoking Status Former smoker; Other : quit 49 yr old; entered on: 04/25/18 Sex
[2022-12-31 22:52] LABS: MANUAL DIFF FLAG NO
[2022-12-31 22:53] LABS: Basophils Percent Auto 0.1 % (0-2); Eosinophils Absolute Auto 0.5 X10*3/uL (0.0-0.4); Eosinophils Percent Auto 5.7 % (0-4); Hematocrit 31.1 % (42.0-52.0); Hemoglobin 10.3 g/dl (14.0-18.0); Imm Gran Abs Auto 0.02 X10*3/uL (0.00-0.03); Imm Gran Pct Auto 0.2 % (0.0-0.4); Lymphocytes Absolute Auto 2.5 X10*3/uL (1.2-4.9); Lymphocytes Percent Auto 27.4 % (20-40); Mean Corpuscular HGB Conc 33.1 g/dl (31.0-36.0); Mean Corpuscular Hemoglobin 32.9 pg (27.0-33.0); Mean Corpuscular Volume 99.4 fL (80.0-98.0); Mean Platelet Volume 11.9 fL (9.4-12.4); Monocytes Absolute Auto 1.1 X10*3/uL (0.1-1.2); Monocytes Percent Auto 11.7 % (2-11); Neutrophils Percent Auto 54.9 % (45-73); Platelet Count 215 X10*3/uL (160-400); Red Blood Count 3.13 X10*6/uL (4.60-5.80); Red Cell Distribution Width 13.2 % (11.0-16.0); White Blood Count 9.1 X10*3/uL (4.8-10.8)
--- NOTE | 2022-12-31 22:54 | PC.NURSE ---
Patient BIBA for evaluation of left heel and ankle pain. Patient reports he was here in Nov, 2022, received treatment for osteomyelitis. Patient reports he has been having similar symptoms in his left great toe-increasing redness, swelling, and pain-no open wounds, warmth noted. Vital signs obtained. 20 G IV line inserted to Right AC, labs drawn, specimens sent to lab for processing. Patient is awaiting ED provider. Call ingram within patient's reach.
[2022-12-31 23:06] LABS: Lactic Acid 1.8 mmol/L (0.5-2.0)
[2022-12-31 23:14] LABS: Anion Gap 14 (12-20)
[2022-12-31 23:16] LABS: Blood Urea Nitrogen 55 mg/dL (9-16); C Reactive Protein 0.37 mg/dL (< or = 0.50); Calcium 9.4 mg/dL (8.4-10.2); Carbon Dioxide 24 mmol/L (22-29); Chloride 107 mmol/L (96-108); Creatinine Clr Calc Pharmacy 33.5; Estimated Glomerular Filt Rate 39; Glucose Random 140 mg/dL (60-115); Potassium 5.5 mmol/L (3.3-5.1); Sodium 139 mmol/L (135-145)
[2022-12-31 23:52] LABS: Erythrocyte Sedimentation Rate 28 MM/HR (0-15)
[2023-01-01] MEDS: traMADoL HCL 50 MG TABLET PO (01:29)
[2023-01-01] MEDS: 0.9 % Sodium Chloride 1,000 ML 999 ML IV (01:30)
[2023-01-01] MEDS: Sodium Zirconium Cyclosilicate 10 GM POWD.PACK PO (01:30)
[2023-01-01 03:20] VITALS: BP 135/64; PULSE 64; RESP 16; TEMP 36.7; O2SAT 98
== END 2023-01-01 03:21 | disposition home or self-care (01) ==
PROVIDERS: Emergency Provider Internal Medicine; PCP Internal Medicine
DX: L08.9 Local infection of the skin and subcutaneous tissue, unspecified (principal); R60.0 Localized edema; Z79.899 Other long term (current) drug therapy
CPT/HCPCS: 36415; 73610; 80048; 83605; 85025; 85652; 86140; 99284

== ENCOUNTER 2024-06-24 10:18 | Inpatient (IN) | payer MEDICARE, SELFPAY ==
[2024-06-24] VITALS (8 sets, daily range): BP systolic 148–182; BP diastolic 59–83; PULSE 52–63; RESP 12–21; TEMP 36.4–36.8; O2SAT 96–100; BMI 25.8
--- NOTE | ~2024-06-24 | XR_ITS ---
EXAMINATION: XR CHEST CLINICAL INFORMATION: Upper abdominal pain COMPARISON: None available. TECHNIQUE: Frontal view of the chest was obtained. FINDINGS: Heart size normal with normal caliber pulmonary vessels. Atelectatic change at the right lung base. This may be due a poor inspiratory effort. When clinically feasible a follow-up PA and lateral film may be helpful. Left lung clear. XR/XR chest 1V IMPRESSION: Right basilar atelectasis. Electronically signed by: Hitesh Maldonado MD 06/24/2024 02:45 PM EDT
--- NOTE | ~2024-06-24 | CT_ITS ---
EXAMINATION: CT ABDOMEN AND PELVIS WITH CONTRAST CLINICAL INFORMATION: Right-sided abdominal pain COMPARISON: CT abdomen pelvis 12/25/2015 TECHNIQUE: Multidetector volumetric images were obtained from the superior aspect of the liver through the pubic symphysis following administration 85 mL of Omnipaque 350 intravenous contrast. Sagittal and coronal reformatted images were obtained on the technologist's workstation. Oral contrast: No This CT examination was performed using dose optimization techniques as appropriate, variously including the following: *Automated exposure control *Adjustment of mA and/or kV according to patient size (this includes techniques or standardized protocols for targeted exams where dose is matched to indication/reason for exam; i.e. extremities or head) *Use of iterative reconstruction technique DLP: 984 mGy-cm FINDINGS: LUNG BASES: There is mild cylindrical bronchiectasis at the lung bases coronary calcium is present. LIVER, GALLBLADDER, AND BILIARY TREE: Status post cholecystectomy. In what appears to be the gallbladder fossa, there is a small fluid collection seen with a central calcification which has increased in size since the prior study. This connects to the common bile duct and likely represents a cystic duct stump stone which has increased in size when compared to 2016. The stone or cluster of stones measures 1.2 x 0.7 x 1.2 cm (see saved royal images). Comment bile duct is mildly prominent which can be seen after cholecystectomy. No liver masses or significant intrahepatic biliary ductal dilatation is seen. PANCREAS: Unremarkable. SPLEEN: Unremarkable. ADRENAL GLANDS: Unremarkable. KIDNEYS, URETERS, BLADDER AND PROSTATE: The kidneys are normal in size, shape, and attenuation. There is marked bilateral hydronephrosis and dilatation of the ureters down to the level of the bladder. No obstructing calculi are seen. No intrarenal calculi are seen. No renal masses are detected. The bladder is markedly distended. The prostate is moderately to markedly enlarged. GASTROINTESTINAL TRACT: There is marked colonic diverticulosis without diverticulitis most prominent in the left colon. The small and large bowel are otherwise unremarkable. The appendix is unremarkable. ABDOMINAL WALL: No significant hernia is appreciated. LYMPH NODES: Normal. VASCULAR: Calcific atherosclerotic changes are present in the aorta and iliofemoral vessels. There is no evidence of an abdominal aortic aneurysm. PELVIC VISCERA: See discussion regarding prostate above. No other pelvic masses are seen. No free fluid. OSSEOUS STRUCTURES: There are marked degenerative changes seen in the spine. There is osseous fusion of L4 and L5 with marked grade 1 anterolisthesis of L5 upon S1. CT/CT abdomen pelvis w IV con IMPRESSION: 1. There is a growing stone/stones seen within the remnant cystic duct. If the patient has right upper quadrant pain, this can be a contributory cause. MRCP may be helpful for further evaluation prior to consideration of stumpectomy. 2. Marked bilateral hydronephrosis and dilatation of the ureters down to the level of the bladder. The bladder is markedly distended. The prostate is moderately to markedly enlarged. Findings are suggestive of bladder outlet obstruction. 3. Incidental note made of mild cylindrical bronchiectasis at the lung bases, colonic diverticulosis without diverticulitis and marked degenerative changes in the spine. Fleischner guidelines were followed. Electronically signed by: Rivas Sanchez MD 06/24/2024 03:56 PM EDT
--- NOTE | ~2024-06-24 | MR_ITS ---
EXAMINATION: MR ABDOMEN WITHOUT CONTRAST /MRCP CLINICAL INFORMATION: Choledocholithiasis COMPARISON: CT abdomen and pelvis with contrast 06/24/2024 TECHNIQUE: Noncontrast MRI of the abdomen was obtained using routine sequences including MRCP sequences. FINDINGS: LIVER, GALLBLADDER, AND BILIARY TREE: Liver demonstrates normal size and surface contour. No hepatic steatosis on the out of phase images. No focal hepatic lesion. Status post cholecystectomy. T2 hyperintense cystic structure in the gallbladder fossa with filling defects likely suggestive of stones within the remnant cystic duct. The MRCP images are slightly degraded due to motion artifact. Mild dilatation of the intrahepatic bile ducts. The common bile duct is normal in caliber measuring up to 0.7 cm with normal distal tapering.No definite filling defects along the course of the CBD to suggest choledocholithiasis. PANCREAS: Motion artifact limits evaluation. No definite focal lesion. No ductal dilatation. SPLEEN: Normal size. No focal lesion. ADRENAL GLANDS: Unremarkable. KIDNEYS AND URETERS: Moderate left and mild right hydroureteronephrosis, improved from prior exam. No suspicious renal mass. GASTROINTESTINAL TRACT: Included bowel loops are nondilated. Scattered colonic diverticulosis. ABDOMINAL WALL: No significant hernia is appreciated. LYMPHOVASCULAR STRUCTURES : No abdominal lymphadenopathy. The aorta is normal in caliber. VISUALIZED LOWER CHEST: Trace bilateral pleural effusions. OSSEOUS: Advanced degenerative changes of the visualized spine with scoliotic curvature. MR/MR MRCP IMPRESSION: Status post cholecystectomy. T2 hyperintense cystic structure in the gallbladder fossa with filling defects likely suggestive of stones within the remnant cystic duct, similar to prior CT. The MRCP images are slightly degraded due to motion artifact. Mild dilatation of the intrahepatic bile ducts. The common bile duct is normal in caliber. No definite filling defects along the course of the common bile duct versus choledocholithiasis. Colonic diverticulosis. Electronically signed by: Rip Morgan MD 06/26/2024 10:21 AM EDT
[2024-06-24 10:41] LABS: MANUAL DIFF FLAG NO
[2024-06-24 10:45] LABS: Basophils Percent Auto 0.1 % (0-2); Eosinophils Absolute Auto 0.1 X10*3/uL (0.0-0.4); Eosinophils Percent Auto 0.7 % (0-4); Hemoglobin 13.1 g/dl (14.0-18.0); Imm Gran Abs Auto 0.03 X10*3/uL (0.00-0.03); Imm Gran Pct Auto 0.4 % (0.0-0.4); Lymphocytes Absolute Auto 2.2 X10*3/uL (1.2-4.9); Lymphocytes Percent Auto 26.3 % (20-40); Mean Corpuscular HGB Conc 33.6 g/dl (31.0-36.0); Mean Corpuscular Hemoglobin 32.6 pg (27.0-33.0); Mean Platelet Volume 10.6 fL (9.4-12.4); Monocytes Absolute Auto 0.9 X10*3/uL (0.1-1.2); Monocytes Percent Auto 10.5 % (2-11); Neutrophils Absolute Auto 5.1 x10*3/uL (2.0-8.3); Platelet Count 228 X10*3/uL (160-400); Red Blood Count 4.02 X10*6/uL (4.60-5.80); Red Cell Distribution Width 12.3 % (11.0-16.0); White Blood Count 8.2 X10*3/uL (4.8-10.8)
[2024-06-24 11:07] LABS: Alanine Aminotransferase 10 U/L (0-40); Albumin Level 4.2 g/dL (3.5-5.0); Alkaline Phosphatase 83 U/L (39-117); Anion Gap 12 (12-20); Aspartate Amino Transferase 17 U/L (5-37); Bilirubin Direct 0.3 mg/dL (0.0-0.5); Bilirubin Total 0.8 mg/dL (0.0-1.0); Blood Urea Nitrogen 35 mg/dL (9-16); Calcium 10.2 mg/dL (8.4-10.2); Carbon Dioxide 28 mmol/L (22-29); Chloride 106 mmol/L (96-108); Creatinine Clr Calc Pharmacy 44.1; Estimated Glomerular Filt Rate 54; Glucose Random 114 mg/dL (60-115); Lipase 26 U/L (8-78); Potassium 5.7 mmol/L (3.3-5.1); Sodium 140 mmol/L (135-145); Total Protein 7.1 g/dL (6.5-8.0)
--- NOTE | 2024-06-24 12:34 | ED.GENADULT ---
HPI - General Adult General Chief complaint: Abdominal Pain Stated complaint: ABD PAIN THIS AM,DIARRHEA X3W PER EMS Time Seen by Provider: 06/24/24 12:33 Source: patient Mode of arrival: ambulatory Limitations: no limitations History of Present Illness HPI narrative: This is an 83-year-old man with a past medical history of type 2 diabetes mellitus with diabetic neuropathy, peripheral arterial disease, hypertension, hyperlipidemia, left great toe osteomyelitis, history of cholecystectomy, history of hernia repair who presents for evaluation of abdominal pain. Patient states that he stayed up late last night and subsequently started having upper abdominal pain at about 5:00 a.m.. Patient states the pain is essentially persistent since then. He states no nausea or vomiting. He states no hematemesis. He states that he has previously had ?coffee-ground ?emesis when he had an ulcer so he states that he is aware to monitor for blood in his vomit and stool. He states no melena or hematochezia. He states that he has had loose stools for the last few weeks. He states no recent IV antibiotics. He states no fevers or chills. He states his pain is not radiate to his back. He states no associated chest pain or difficulty breathing. He states no cough, hemoptysis or sputum production. He states no dysuria or urinary frequency/urgency. Related Data Home Medications ?Medication ?Instructions ?Recorded ?Confirmed metformin 500 mg tablet 500 mg PO BID 06/30/20 10/30/22 multivitamin 1 tab PO DAILY@1200 06/30/20 10/30/22 omega-3 fatty acids 1,000 mg 1,000 mg PO DAILY@1200 06/30/20 10/30/22 capsule omeprazole 20 mg tablet,delayed 20 mg PO DAILY@0630 06/30/20 10/30/22 release arginine HCl (L-arginine) 1,000 mg 1,000 mg PO DAILY 10/10/22 10/30/22 tablet atorvastatin 40 mg tablet 40 mg PO MOTH@1800 10/10/22 10/30/22 cyclosporine 0.05 % eye drops in a 1 drp ophthalmic (eye) Q12H 10/10/22 10/30/22 dropperette (Restasis) lisinopril 20 mg tablet 1 tab PO DAILY 10/10/22 10/30/22 Previous Rx's ?Medication ?Instructions ?Recorded aspirin 81 mg chewable tablet 81 mg PO DAILY #30 tabs 10/20/22 clopidogrel 75 mg tablet 75 mg PO DAILY #30 tabs 10/20/22 finasteride 5 mg tablet 5 mg PO DAILY #30 tabs 10/20/22 tamsulosin 0.4 mg capsule 0.4 mg PO BEDTIME #30 caps 10/20/22 ertapenem 1 gram solution for 1 g IM Q24H #41 ea 11/04/22 injection (Invanz) tramadol 50 mg tablet 50 mg PO Q6H PRN pain #20 tabs 01/01/23 Allergies Allergy/AdvReac Type Severity Reaction Status Date / Time clindamycin [From CLEOCIN] Allergy Severe BLACK STOOL Verified 06/24/24 10:26 Review of Systems Review of Systems: ROS as per [facility] Past Medical History Medical History PAD (peripheral artery disease) Skin ulcer of left great toe Hypertension Type 2 diabetes mellitus Diabetes PSA (psoriatic arthritis) Surgical History History of atherectomy Social History Social History Household Members: Children Household Members Other:: 1 Housing: House Do you presently have visiting nurse or other home services: Yes Alcohol intake: former Comment: 1 assist with walker Patient Tobacco Use Status: Never used Tobacco Tobacco use type: Cigarette e-Cigarette/Vaping Use: Never Used Second Hand Smoke Exposure: No Advance Directives: Yes Advance Directives Information Provided: Yes Advance Directives on File: No Advance Directives Date on File: 10/10/22 Do you have a plan to hurt others: No Plan service: No Current occupational status: retired Physical Exam ED Vital Signs: Vital Signs - 24 hr 06/24/24 10:24 06/24/24 10:25 06/24/24 14:13 Temperature 97.6 F 97.6 F 97.9 F Pulse Rate 61 61 60 Respiratory Rate 20 16 16 Blood Pressure 182/83 H 182/83 H 158/66 H Pulse Oximetry 96 96 100 Oxygen Delivery Method Room Air Room Air Room Air 06/24/24 16:35 06/24/24 16:57 Temperature 97.8 F 98.2 F Pulse Rate 54 52 Respiratory Rate 20 12 Blood Pressure 154/62 H 162/61 H Pulse Oximetry 98 98 Oxygen Delivery Method Room Air Room Air BMI result Body Mass Index 25.8 Gen: NAD, AOx3 HEENT: NCAT, EOMI, normal conjunctiva CV: RRR Pulm: CTAB, no increased work of breathing GI: Soft, generalized abdominal tenderness to palpation with no focal rebound, guarding or rigidity Neuro: Grossly non focal Medications Administered Generic Name Dose Route Start Last Admin Trade Name Freq PRN Reason Stop Dose Admin Dextrose/Sodium Chloride 1,000 mls @ 80 mls/hr 06/24/24 16:15 06/24/24 17:08 D5ns IVCONT 80 mls/hr .[id number] MICHAEL Administration Discontinued Medications Generic Name Dose Route Start Last Admin Trade Name Freq PRN Reason Stop Dose Admin Lactated Ringer's 1,000 mls @ 999 mls/hr 06/24/24 12:33 06/24/24 15:29 Lr IV 06/24/24 13:33 Infused .Q1H1M ONE Infusion Calcium Gluconate 2 gm in 100 mls @ 50 mls/hr 06/24/24 13:15 06/24/24 15:47 Calcium Gluconate IV 06/24/24 15:14 Infused ONCE ONE Infusion Dextrose 250 mls @ 1,000 mls/hr 06/24/24 16:15 06/24/24 17:00 D10 IVCONT Infused .Q15M MICHAEL Infusion Insulin Human Regular 5 unit 06/24/24 16:15 06/24/24 16:53 Insulin Regular, Human 100 Unit/Ml 10 Ml Vial IVPUSH 06/24/24 16:16 5 unit ONCE ONE Administration Iohexol 85 ml 06/24/24 13:37 06/24/24 13:37 Iohexol 350 Mg/Ml 100 Ml Infus..Btl IV 06/24/24 13:38 85 ml ONCE ONE Administration Lidocaine HCl 10 ml 06/24/24 13:57 06/24/24 14:11 Lidocaine Hcl 2 % Urojet 10 Ml Jel.Pf.Harshal TOPICAL 06/24/24 13:58 10 ml ONCE ONE Administration Medical Decision Making Medical Decision Making MDM Narrative: Differential diagnosis includes, but is not limited to pancreatitis, gastritis. Patient is very well appearing with no fever, hemodynamic instability or confusion and for this reason that he is very low clinical suspicion for ascending cholangitis. 1316 - given hyperkalemia noted on initial labs, we will repeat basic metabolic panel. EKG does not demonstrate any peaked waves however does demonstrate OK prolongation. Thus, given inability to compare previous EKGs will empirically treat hyperkalemia with calcium gluconate while awaiting repeat blood work. Patient is also given dextrose and insulin for hyperkalemia, which is improving after IV fluids on repeat metabolic panel (5.7-> 5.2). The patient is subsequently placed on maintenance D5 NS. I independently reviewed in patient's chest x-ray, which demonstrates no pneumothorax or focal consolidation. I reviewed radiology impression which demonstrates right basilar atelectasis. I have low clinical suspicion for pneumonia given lack of fever, hypoxia or productive cough. Patient does complain of right upper quadrant abdominal pain, but he does not complain of any chest pain or pleuritic chest pain to suggest pneumonia so this is thought to be unlikely is contributory. I reviewed patient's labs as below. There is no obstructive cholestatic pattern. Lipase is within normal limits. I reviewed patient's CT imaging as below. Patient is found to have postvoid residual greater than 700 cc and for this reason the Guadalupe catheter is placed. Fortunately, there is no evidence of postobstructive acute kidney injury with baseline creatinine. CT imaging as below with findings of stones within the remnant cystic duct. For which MRCP is recommended. I discussed the patient's case and management with on-call mixing machine operator, Dr. Long, recommends further discussion with general surgery for preferred additionally imaging (HIDA scan versus MRCP) given that the stones are in the cystic duct. I discussed patient's case a management with General surgery, Dr. Gama, who recommends MRCP. I discussed patient's case and management with admitting hospitalist, Kelly Stinson, and patient is subsequently admitted for further workup and management. Critical Care Time: A total of 45 minutes spent in direct patient care with coordinating critical resuscitation, procedures, reviewing records, discussing with consultants, reviewing labs, and/or managing patient. Admission/Observation Consideration of admission/observation: Escalation of care including admission/observation considered Consult Healthcare Provider Management of the patient was discussed with: Assistant Basketball Coach I discussed with the consulting hospitalist, mixing machine operator and general surgeon as above Lab Data MDM Lab Attestation statement: I reviewed the patient's lab results. I have independently reviewed and interpreted the patient's labs, which are notable for stable chronic anemia with hemoglobin 13.0 (previous 13.1), hyperkalemia with potassium 5.7, baseline renal function with creatinine today 1.27 (previous 1.70), lipase within normal limits. Repeated blood work demonstrates stable anemia with hemoglobin of 13.0, hyperkalemia with a potassium of 5.8. Urinalysis is noncontributory patient states no dysuria or urinary frequency/urgency that would be consistent with urinary tract infection. 06/24/24 12:53 06/24/24 12:53 Labs: Lab Results 06/24/24 06/24/24 06/24/24 Range/Units 10:37 12:53 12:53 WBC 8.2 10.0 (4.8-10.8) X10*3/uL RBC 4.02 L D 3.88 L (4.60-5.80) X10*6/uL Hgb 13.1 L D 13.0 L (14.0-18.0) g/dl Hct 39.0 L D 37.9 L (42.0-52.0) % MCV 97.0 97.7 (80.0-98.0) fL MCH 32.6 33.5 H (27.0-33.0) pg MCHC 33.6 34.3 (31.0-36.0) g/dl RDW 12.3 12.4 (11.0-16.0) % Plt Count 228 236 (160-400) X10*3/uL MPV 10.6 10.3 (9.4-12.4) fL Immature Gran % (Auto) 0.4 0.3 (0.0-0.4) % Neut % (Auto) 62.0 67.4 (45-73) % Lymph % (Auto) 26.3 21.9 (20-40) % [place] % (Auto) 10.5 9.7 (2-11) % Eos % (Auto) 0.7 0.6 (0-4) % Baso % (Auto) 0.1 0.1 (0-2) % Lymph # (Auto) 2.2 2.2 (1.2-4.9) X10*3/uL [place] # (Auto) 0.9 1.0 (0.1-1.2) X10*3/uL Eos # (Auto) 0.1 0.1 (0.0-0.4) X10*3/uL Baso # (Auto) 0.0 0.0 (0.0-0.2) X10*3/uL Abs Immat Gran (auto) 0.03 0.03 (0.00-0.03) X10*3/uL Absolute Neuts (auto) 5.1 6.7 (2.0-8.3) x10*3/uL Absolute Nucleated RBC 0.000 0.000 (0.0-0.012) X10*3/uL Nucleated RBC % (auto) 0.0 0.0 (0.0-0.2) /100WBC Sodium 140 139 140 (135-145) mmol/L Potassium 5.7 H 5.8 H (3.3-5.1) mmol/L Chloride 106 (96-108) mmol/L Carbon Dioxide 28 (22-29) mmol/L Anion Gap 12 (12-20) BUN 35 H (9-16) mg/dL Creatinine 1.27 (0.5-1.4) mg/dL Estim Creat Clear Calc 44.1 Estimated GFR 54 Random Glucose 114 (60-115) mg/dL Calcium 10.2 D (8.4-10.2) mg/dL Total Bilirubin 0.8 (0.0-1.0) mg/dL Direct Bilirubin 0.3 (0.0-0.5) mg/dL AST 17 (5-37) U/L ALT 10 (0-40) U/L Alkaline Phosphatase 83 (39-117) U/L Troponin I High Sens (<3.5-35.0) ng/L Total Protein 7.1 (6.5-8.0) g/dL Albumin 4.2 (3.5-5.0) g/dL Lipase 26 (8-78) U/L Urine Color Urine Appearance Urine pH (5.0-9.0) Ur Specific [place] (1.005-1.025) Urine Protein (Neg-Trace) mg/dL Urine Glucose (UA) (Negative) mg/dL Urine Ketones (Negative) mg/dL Urine Blood (Negative) Urine Nitrite (Negative) Ur Leukocyte Esterase (Negative) Urine RBC (0-2) /HPF Urine WBC (0-5) /HPF Ur Squamous Epith Cells (0-2) /HPF Urine Bacteria (None Seen) Hyaline Casts (0-2) /LPF 06/24/24 06/24/24 06/24/24 Range/Units 12:53 12:53 12:53 WBC (4.8-10.8) X10*3/uL RBC (4.60-5.80) X10*6/uL Hgb (14.0-18.0) g/dl Hct (42.0-52.0) % MCV (80.0-98.0) fL MCH (27.0-33.0) pg MCHC (31.0-36.0) g/dl RDW (11.0-16.0) % Plt Count (160-400) X10*3/uL MPV (9.4-12.4) fL Immature Gran % (Auto) (0.0-0.4) % Neut % (Auto) (45-73) % Lymph % (Auto) (20-40) % [place] % (Auto) (2-11) % Eos % (Auto) (0-4) % Baso % (Auto) (0-2) % Lymph # (Auto) (1.2-4.9) X10*3/uL [place] # (Auto) (0.1-1.2) X10*3/uL Eos # (Auto) (0.0-0.4) X10*3/uL Baso # (Auto) (0.0-0.2) X10*3/uL Abs Immat Gran (auto) (0.00-0.03) X10*3/uL Absolute Neuts (auto) (2.0-8.3) x10*3/uL Absolute Nucleated RBC (0.0-0.012) X10*3/uL Nucleated RBC % (auto) (0.0-0.2) /100WBC Sodium (135-145) mmol/L Potassium 5.2 H (3.3-5.1) mmol/L Chloride 106 106 (96-108) mmol/L Carbon Dioxide 29 29 (22-29) mmol/L Anion Gap 10 L (12-20) BUN (9-16) mg/dL Creatinine (0.5-1.4) mg/dL Estim Creat Clear Calc Estimated GFR Random Glucose (60-115) mg/dL Calcium (8.4-10.2) mg/dL Total Bilirubin (0.0-1.0) mg/dL Direct Bilirubin (0.0-0.5) mg/dL AST (5-37) U/L ALT (0-40) U/L Alkaline Phosphatase (39-117) U/L Troponin I High Sens (<3.5-35.0) ng/L Total Protein (6.5-8.0) g/dL Albumin (3.5-5.0) g/dL Lipase (8-78) U/L Urine Color Urine Appearance Urine pH (5.0-9.0) Ur Specific [place] (1.005-1.025) Urine Protein (Neg-Trace) mg/dL Urine Glucose (UA) (Negative) mg/dL Urine Ketones (Negative) mg/dL Urine Blood (Negative) Urine Nitrite (Negative) Ur Leukocyte Esterase (Negative) Urine RBC (0-2) /HPF Urine WBC (0-5) /HPF Ur Squamous Epith Cells (0-2) /HPF Urine Bacteria (None Seen) Hyaline Casts (0-2) /LPF 06/24/24 06/24/24 06/24/24 Range/Units 12:53 12:53 12:53 WBC (4.8-10.8) X10*3/uL RBC (4.60-5.80) X10*6/uL Hgb (14.0-18.0) g/dl Hct (42.0-52.0) % MCV (80.0-98.0) fL MCH (27.0-33.0) pg MCHC (31.0-36.0) g/dl RDW (11.0-16.0) % Plt Count (160-400) X10*3/uL MPV (9.4-12.4) fL Immature Gran % (Auto) (0.0-0.4) % Neut % (Auto) (45-73) % Lymph % (Auto) (20-40) % [place] % (Auto) (2-11) % Eos % (Auto) (0-4) % Baso % (Auto) (0-2) % Lymph # (Auto) (1.2-4.9) X10*3/uL [place] # (Auto) (0.1-1.2) X10*3/uL Eos # (Auto) (0.0-0.4) X10*3/uL Baso # (Auto) (0.0-0.2) X10*3/uL Abs Immat Gran (auto) (0.00-0.03) X10*3/uL Absolute Neuts (auto) (2.0-8.3) x10*3/uL Absolute Nucleated RBC (0.0-0.012) X10*3/uL Nucleated RBC % (auto) (0.0-0.2) /100WBC Sodium (135-145) mmol/L Potassium (3.3-5.1) mmol/L Chloride (96-108) mmol/L Carbon Dioxide (22-29) mmol/L Anion Gap 10 L (12-20) BUN 33 H 33 H (9-16) mg/dL Creatinine 1.24 1.22 (0.5-1.4) mg/dL Estim Creat Clear Calc 45.2 Estimated GFR Random Glucose (60-115) mg/dL Calcium (8.4-10.2) mg/dL Total Bilirubin (0.0-1.0) mg/dL Direct Bilirubin (0.0-0.5) mg/dL AST (5-37) U/L ALT (0-40) U/L Alkaline Phosphatase (39-117) U/L Troponin I High Sens (<3.5-35.0) ng/L Total Protein (6.5-8.0) g/dL Albumin (3.5-5.0) g/dL Lipase (8-78) U/L Urine Color Urine Appearance Urine pH (5.0-9.0) Ur Specific [place] (1.005-1.025) Urine Protein (Neg-Trace) mg/dL Urine Glucose (UA) (Negative) mg/dL Urine Ketones (Negative) mg/dL Urine Blood (Negative) Urine Nitrite (Negative) Ur Leukocyte Esterase (Negative) Urine RBC (0-2) /HPF Urine WBC (0-5) /HPF Ur Squamous Epith Cells (0-2) /HPF Urine Bacteria (None Seen) Hyaline Casts (0-2) /LPF 06/24/24 06/24/24 06/24/24 Range/Units 12:53 12:53 12:53 WBC (4.8-10.8) X10*3/uL RBC (4.60-5.80) X10*6/uL Hgb (14.0-18.0) g/dl Hct (42.0-52.0) % MCV (80.0-98.0) fL MCH (27.0-33.0) pg MCHC (31.0-36.0) g/dl RDW (11.0-16.0) % Plt Count (160-400) X10*3/uL MPV (9.4-12.4) fL Immature Gran % (Auto) (0.0-0.4) % Neut % (Auto) (45-73) % Lymph % (Auto) (20-40) % [place] % (Auto) (2-11) % Eos % (Auto) (0-4) % Baso % (Auto) (0-2) % Lymph # (Auto) (1.2-4.9) X10*3/uL [place] # (Auto) (0.1-1.2) X10*3/uL Eos # (Auto) (0.0-0.4) X10*3/uL Baso # (Auto) (0.0-0.2) X10*3/uL Abs Immat Gran (auto) (0.00-0.03) X10*3/uL Absolute Neuts (auto) (2.0-8.3) x10*3/uL Absolute Nucleated RBC (0.0-0.012) X10*3/uL Nucleated RBC % (auto) (0.0-0.2) /100WBC Sodium (135-145) mmol/L Potassium (3.3-5.1) mmol/L Chloride (96-108) mmol/L Carbon Dioxide (22-29) mmol/L Anion Gap (12-20) BUN (9-16) mg/dL Creatinine (0.5-1.4) mg/dL Estim Creat Clear Calc 45.9 Estimated GFR 56 57 Random Glucose 111 110 (60-115) mg/dL Calcium 10.1 (8.4-10.2) mg/dL Total Bilirubin (0.0-1.0) mg/dL Direct Bilirubin (0.0-0.5) mg/dL AST (5-37) U/L ALT (0-40) U/L Alkaline Phosphatase (39-117) U/L Troponin I High Sens (<3.5-35.0) ng/L Total Protein (6.5-8.0) g/dL Albumin (3.5-5.0) g/dL Lipase (8-78) U/L Urine Color Urine Appearance Urine pH (5.0-9.0) Ur Specific [place] (1.005-1.025) Urine Protein (Neg-Trace) mg/dL Urine Glucose (UA) (Negative) mg/dL Urine Ketones (Negative) mg/dL Urine Blood (Negative) Urine Nitrite (Negative) Ur Leukocyte Esterase (Negative) Urine RBC (0-2) /HPF Urine WBC (0-5) /HPF Ur Squamous Epith Cells (0-2) /HPF Urine Bacteria (None Seen) Hyaline Casts (0-2) /LPF 06/24/24 06/24/24 Range/Units 12:53 14:19 WBC (4.8-10.8) X10*3/uL RBC (4.60-5.80) X10*6/uL Hgb (14.0-18.0) g/dl Hct (42.0-52.0) % MCV (80.0-98.0) fL MCH (27.0-33.0) pg MCHC (31.0-36.0) g/dl RDW (11.0-16.0) % Plt Count (160-400) X10*3/uL MPV (9.4-12.4) fL Immature Gran % (Auto) (0.0-0.4) % Neut % (Auto) (45-73) % Lymph % (Auto) (20-40) % [place] % (Auto) (2-11) % Eos % (Auto) (0-4) % Baso % (Auto) (0-2) % Lymph # (Auto) (1.2-4.9) X10*3/uL [place] # (Auto) (0.1-1.2) X10*3/uL Eos # (Auto) (0.0-0.4) X10*3/uL Baso # (Auto) (0.0-0.2) X10*3/uL Abs Immat Gran (auto) (0.00-0.03) X10*3/uL Absolute Neuts (auto) (2.0-8.3) x10*3/uL Absolute Nucleated RBC (0.0-0.012) X10*3/uL Nucleated RBC % (auto) (0.0-0.2) /100WBC Sodium (135-145) mmol/L Potassium (3.3-5.1) mmol/L Chloride (96-108) mmol/L Carbon Dioxide (22-29) mmol/L Anion Gap (12-20) BUN (9-16) mg/dL Creatinine (0.5-1.4) mg/dL Estim Creat Clear Calc Estimated GFR Random Glucose (60-115) mg/dL Calcium 9.9 (8.4-10.2) mg/dL Total Bilirubin 0.8 (0.0-1.0) mg/dL Direct Bilirubin 0.3 (0.0-0.5) mg/dL AST 17 (5-37) U/L ALT 10 (0-40) U/L Alkaline Phosphatase 81 (39-117) U/L Troponin I High Sens 2.8 (<3.5-35.0) ng/L Total Protein 6.9 (6.5-8.0) g/dL Albumin 4.1 (3.5-5.0) g/dL Lipase 23 (8-78) U/L Urine Color Yellow Urine Appearance Clear Urine pH 6.0 (5.0-9.0) Ur Specific [place] 1.015 (1.005-1.025) Urine Protein 30 (1+) H (Neg-Trace) mg/dL Urine Glucose (UA) Negative (Negative) mg/dL Urine Ketones Negative (Negative) mg/dL Urine Blood Moderate (2+) H (Negative) Urine Nitrite Negative (Negative) Ur Leukocyte Esterase Negative (Negative) Urine RBC >20 H (0-2) /HPF Urine WBC 0-5 (0-5) /HPF Ur Squamous Epith Cells 0-2 (0-2) /HPF Urine Bacteria None Seen (None Seen) Hyaline Casts 0-2 (0-2) /LPF Independent Interpretation I performed an independent interpretation of an: EKG and CT Scan Interpretation: I independently reviewed and interpreted the patient's EKG which demonstrates a sinus rhythm at 78 beats per minute, first-degree AV block, OK interval 316, QRS 150, right bundle branch block, no peaked T-waves, no STEMI (no previous EKG for comparison) Radiology Impression Discussion of test interpretation with radiology: I have reviewed the radiologist's reading. Radiologist Impression: XR/XR chest 1V IMPRESSION: Right basilar atelectasis. Electronically signed by: Hitesh Maldonado MD 06/24/2024 02:45 PM EDT RP Dictated By: Hitesh Maldonado MD Signed By: <Electronically signed by Hitesh Maldonado MD in OV> 06/24/[address]/CT abdomen pelvis w IV con IMPRESSION: 1. There is a growing stone/stones seen within the remnant cystic duct. If the patient has right upper quadrant pain, this can be a contributory cause. MRCP may be helpful for further evaluation prior to consideration of stumpectomy. 2. Marked bilateral hydronephrosis and dilatation of the ureters down to the level of the bladder. The bladder is markedly distended. The prostate is moderately to markedly enlarged. Findings are suggestive of bladder outlet obstruction. 3. Incidental note made of mild cylindrical bronchiectasis at the lung bases, colonic diverticulosis without diverticulitis and marked degenerative changes in the spine. Fleischner guidelines were followed. Electronically signed by: Rivas Sanchez MD 06/24/2024 03:56 PM EDT RP Dictated By: Rivas Sanchez MD Signed By: <Electronically signed by Rivas Sanchez MD in OV> 06/24/24 9257 Discharge Plan Discharge Clinical Impression: Calculus of cystic duct, Acute hyperkalemia, Acute urinary retention, 1st degree AV block, Bilateral hydronephrosis, Bladder outlet obstruction Patient Disposition: Admitted As Inpatient Print Language: Syriac
--- NOTE | 2024-06-24 12:43 | ECG_ITS ---
Test Reason : HYPERKALEMIA, ABDOMINAL PAIN Blood Pressure : / mmHG Vent. Rate : 078 BPM Atrial Rate : 065 BPM P-R Int : 316 ms QRS Dur : 150 ms QT Int : 424 ms P-R-T Axes : 025 -67 -03 degrees QTc Int : 483 ms Sinus rhythm with 1st degree A-V block with Premature supraventricular complexes Left axis deviation Right bundle branch block Abnormal ECG When compared with ECG of 25-DEC-2015 01:34, Premature supraventricular complexes are now Present Right bundle branch block is now Present Referred By: Eyal Rae Electronically Signed By:SHANDA MCKEON
[2024-06-24 12:57] LABS: MANUAL DIFF FLAG NO
[2024-06-24 12:59] LABS: Basophils Percent Auto 0.1 % (0-2); Eosinophils Absolute Auto 0.1 X10*3/uL (0.0-0.4); Eosinophils Percent Auto 0.6 % (0-4); Hematocrit 37.9 % (42.0-52.0); Imm Gran Abs Auto 0.03 X10*3/uL (0.00-0.03); Imm Gran Pct Auto 0.3 % (0.0-0.4); Lymphocytes Absolute Auto 2.2 X10*3/uL (1.2-4.9); Lymphocytes Percent Auto 21.9 % (20-40); Mean Corpuscular HGB Conc 34.3 g/dl (31.0-36.0); Mean Corpuscular Hemoglobin 33.5 pg (27.0-33.0); Mean Corpuscular Volume 97.7 fL (80.0-98.0); Mean Platelet Volume 10.3 fL (9.4-12.4); Monocytes Percent Auto 9.7 % (2-11); Neutrophils Absolute Auto 6.7 x10*3/uL (2.0-8.3); Neutrophils Percent Auto 67.4 % (45-73); Platelet Count 236 X10*3/uL (160-400); Red Blood Count 3.88 X10*6/uL (4.60-5.80); Red Cell Distribution Width 12.4 % (11.0-16.0)
[2024-06-24] MEDS: Lactated Ringers 1,000 ML 999 ML IV (13:02)
[2024-06-24 13:15] LABS: Anion Gap 10 (12-20); Blood Urea Nitrogen 33 mg/dL (9-16); Calcium 10.1 mg/dL (8.4-10.2); Carbon Dioxide 29 mmol/L (22-29); Chloride 106 mmol/L (96-108); Creatinine Clr Calc Pharmacy 45.2; Estimated Glomerular Filt Rate 56; Glucose Random 111 mg/dL (60-115); Lipase 23 U/L (8-78); Potassium 5.8 mmol/L (3.3-5.1); Sodium 139 mmol/L (135-145)
[2024-06-24 13:17] LABS: Alanine Aminotransferase 10 U/L (0-40); Albumin Level 4.1 g/dL (3.5-5.0); Alkaline Phosphatase 81 U/L (39-117); Anion Gap 10 (12-20); Aspartate Amino Transferase 17 U/L (5-37); Bilirubin Direct 0.3 mg/dL (0.0-0.5); Bilirubin Total 0.8 mg/dL (0.0-1.0); Blood Urea Nitrogen 33 mg/dL (9-16); Calcium 9.9 mg/dL (8.4-10.2); Carbon Dioxide 29 mmol/L (22-29); Chloride 106 mmol/L (96-108); Creatinine Clr Calc Pharmacy 45.9; Estimated Glomerular Filt Rate 57; Glucose Random 110 mg/dL (60-115); Potassium 5.2 mmol/L (3.3-5.1); Sodium 140 mmol/L (135-145); Total Protein 6.9 g/dL (6.5-8.0)
[2024-06-24 13:22] LABS: Troponin-I High Sensitivity 2.8 ng/L (<3.5-35.0)
[2024-06-24] MEDS: Calcium Gluconate/NaCl,Iso-Osm 2 GM/100 ML PLAST..BAG IV (13:25)
[2024-06-24] MEDS: iohexoL 350 MG/ML 100 ML INFUS..BTL 85 ML IV (13:37)
[2024-06-24] MEDS: Lidocaine HCl 2 % Urojet 10 ML JEL.PF.APP TOPICAL (14:11)
--- NOTE | 2024-06-24 14:14 | PC.NURSE ---
patient was able to stand and void into urinal, patient bladder scanned after void, patient voided 250ml into urinal. bladder scan shoed 750ml in bladder, provider notified, loza cath placed 18fr with lido jet, 10cc balloon. patient had immediate outpuut of 800 cc yellow urine, patient tolerated well.
[2024-06-24 14:24] LABS: Appearance Urine Clear; Color Urine Yellow; Glucose Urine UA Negative (Negative); Leukocyte Esterase Urine Negative (Negative); Nitrite Urine Negative (Negative); Specific Gravity - Urine 1.015 (1.005-1.025); UMIC TRIGGER UACC YES; Urine Blood Moderate (2+) (Negative); Urine Ketones Negative (Negative); Urine Protein 30 (1+) mg/dL (Neg-Trace)
[2024-06-24 14:29] LABS: Bacteria Urine None Seen (None Seen); Hyaline Casts Urine 0-2 /LPF (0-2); RBC Urine >20 /HPF (0-2); Squamous Epithelial Cell Urine 0-2 /HPF (0-2); WBC Urine 0-5 /HPF (0-5)
--- NOTE | 2024-06-24 15:29 | PC.NURSE ---
1400ml emptied out of urine loza bag
[2024-06-24] MEDS: Insulin Regular, Human 100 UNIT/ML 10 ML VIAL IVPUSH (16:53)
[2024-06-24] MEDS: Dextrose 10 % 250 ML 1000 ML IV (17:00)
[2024-06-24] MEDS: Dextrose 5 % and 0.9 % NaCl 1,000 ML 80 ML IVCONT (17:08)
--- NOTE | 2024-06-24 17:14 | PM.IMHP ---
History of Present Illness Date of Service: 06/24/24 Chief Complaint: Abdominal pain, urinary retention. 83 y/o male with PMH of DM2, PAD, HTN, s/p CCY, BPH here with abdominal pain since 4 am and difficulty voiding, no fever, no n/v, no diarrhea or constipation. CTA of abdomena nd pelvis showed 1. There is a growing stone/stones seen within the remnant cystic duct. If the patient has right upper quadrant pain, this can be a contributory cause. MRCP may be helpful for further evaluation prior to consideration of stumpectomy. 2. Marked bilateral hydronephrosis and dilatation of the ureters down to the level of the bladder. The bladder is markedly distended. The prostate is moderately to markedly enlarged. Findings are suggestive of bladder outlet obstruction. LFTS are normal, no jaundice, a loza was inserted with return of over 1000 cc after voiding about 200cc. Review of Systems Review of Systems: Gen: no fever Resp: no sob, no cough CV: no chest, no ORTEGA, no leg edema GI: No n/v, + abd pain Neuro: No confusion Yes all other systems are reviewed and are negative [facility] Medical History PAD (peripheral artery disease) Skin ulcer of left great toe Hypertension Type 2 diabetes mellitus Diabetes PSA (psoriatic arthritis) Surgical History History of atherectomy Social History Household Members: Children Household Members Other:: 1 Housing: House Do you presently have visiting nurse or other home services: Yes Alcohol intake: former Comment: 1 assist with walker Patient Tobacco Use Status: Never used Tobacco Tobacco use type: Cigarette e-Cigarette/Vaping Use: Never Used Second Hand Smoke Exposure: No Advance Directives: Yes Advance Directives Information Provided: Yes Advance Directives on File: No Advance Directives Date on File: 10/10/22 Do you have a plan to hurt others: No Plan service: No Current occupational status: retired Meds Allergies Allergy/AdvReac Type Severity Reaction Status Date / Time clindamycin [From CLEOCIN] Allergy Severe BLACK STOOL Verified 06/24/24 10:26 Active Medications: Current Medications Dextrose (D10) 250 mls @ 1,000 mls/hr IVCONT .Q15M [facility] Last Infusion: 06/24/24 17:00 Dose: Infused Dextrose/Sodium Chloride (D5ns) 1,000 mls @ 80 mls/hr IVCONT .[id number] [facility] Last Admin: 06/24/24 17:08 Dose: 80 mls/hr Home Medications ?Medication ?Instructions ?Recorded ?Confirmed ?Last Taken ?Type metformin 500 mg tablet 500 mg PO BID 06/30/20 06/24/24 06/23/24 History multivitamin 1 tab PO DAILY@1200 06/30/20 06/24/24 06/23/24 History atorvastatin 40 mg tablet 40 mg PO MOTH@1800 10/10/22 06/24/24 06/23/24 History cyclosporine 0.05 % eye drops in a 1 drp ophthalmic (eye) Q12H 10/10/22 06/24/24 06/23/24 History dropperette (Restasis) pantoprazole 40 mg tablet,delayed 40 mg PO DAILY 06/24/24 06/24/24 06/23/24 History release Physical Exam Vital Signs and Narrative: Vital Signs: Last Vital Signs Temp 98.2 F 06/24/24 16:57 Pulse 52 06/24/24 16:57 Resp 12 06/24/24 16:57 BP 162/61 H 06/24/24 16:57 Pulse Ox 98 06/24/24 16:57 O2 Del Method Room Air 06/24/24 16:57 BMI result Body Mass Index 25.8 Const: Other: Constitutional: Alert, in no distress, Mental Status: Oriented to person, place and time. Eyes: Pupils are equal, round and reactive to light. Ear, Nose and Throat: Oropharynx clear, mucous membranes moist. Ears and nose without deformities. Trachea midline. Respiratory: Clear to auscultation. No wheezing, rales or rhonchi. Cardiovascular: S1 S2 regular. No murmurs, rubs or gallops. Gastrointestinal: Abdomen soft, non-tender, non-distended. Normal bowel sounds.? Neurologic: Cranial nerves II-XII grossly intact. No focal neurological deficits. Moves all extremities spontaneously.? Skin: No rashes or lesions.? Musculoskeletal: No cyanosis or clubbing. Psychiatric: Normal mood and affect? Results Labs 06/24/24 12:53 06/25/24 04:24 Labs: Laboratory Results - last 24 hr 06/24/24 06/24/24 06/24/24 10:37 12:53 12:53 MCV 97.0 97.7 MCH 32.6 33.5 H MCHC 33.6 34.3 RDW 12.3 12.4 Plt Count 228 236 MPV 10.6 10.3 Immature Gran % (Auto) 0.4 0.3 Neut % (Auto) 62.0 67.4 Lymph % (Auto) 26.3 21.9 [place] % (Auto) 10.5 9.7 Eos % (Auto) 0.7 0.6 Baso % (Auto) 0.1 0.1 Lymph # (Auto) 2.2 2.2 [place] # (Auto) 0.9 1.0 Eos # (Auto) 0.1 0.1 Baso # (Auto) 0.0 0.0 Abs Immat Gran (auto) 0.03 0.03 Absolute Neuts (auto) 5.1 6.7 Absolute Nucleated RBC 0.000 0.000 Nucleated RBC % (auto) 0.0 0.0 Anion Gap 12 10 L 10 L Estim Creat Clear Calc 44.1 45.2 Estimated GFR 54 Random Glucose 114 Calcium 10.2 D Total Bilirubin 0.8 Direct Bilirubin 0.3 AST 17 ALT 10 Alkaline Phosphatase 83 Troponin I High Sens Total Protein 7.1 Albumin 4.2 Lipase 26 Urine Color Urine Appearance Urine pH Ur Specific [place] Urine Protein Urine Glucose (UA) Urine Ketones Urine Blood Urine Nitrite Ur Leukocyte Esterase Urine RBC Urine WBC Ur Squamous Epith Cells Urine Bacteria Hyaline Casts 06/24/24 06/24/24 06/24/24 12:53 12:53 12:53 MCV MCH MCHC RDW Plt Count MPV Immature Gran % (Auto) Neut % (Auto) Lymph % (Auto) [place] % (Auto) Eos % (Auto) Baso % (Auto) Lymph # (Auto) [place] # (Auto) Eos # (Auto) Baso # (Auto) Abs Immat Gran (auto) Absolute Neuts (auto) Absolute Nucleated RBC Nucleated RBC % (auto) Anion Gap Estim Creat Clear Calc 45.9 Estimated GFR 56 57 Random Glucose 111 110 Calcium 10.1 Total Bilirubin Direct Bilirubin AST ALT Alkaline Phosphatase Troponin I High Sens Total Protein Albumin Lipase Urine Color Urine Appearance Urine pH Ur Specific [place] Urine Protein Urine Glucose (UA) Urine Ketones Urine Blood Urine Nitrite Ur Leukocyte Esterase Urine RBC Urine WBC Ur Squamous Epith Cells Urine Bacteria Hyaline Casts 06/24/24 06/24/24 12:53 14:19 MCV MCH MCHC RDW Plt Count MPV Immature Gran % (Auto) Neut % (Auto) Lymph % (Auto) [place] % (Auto) Eos % (Auto) Baso % (Auto) Lymph # (Auto) [place] # (Auto) Eos # (Auto) Baso # (Auto) Abs Immat Gran (auto) Absolute Neuts (auto) Absolute Nucleated RBC Nucleated RBC % (auto) Anion Gap Estim Creat Clear Calc Estimated GFR Random Glucose Calcium 9.9 Total Bilirubin 0.8 Direct Bilirubin 0.3 AST 17 ALT 10 Alkaline Phosphatase 81 Troponin I High Sens 2.8 Total Protein 6.9 Albumin 4.1 Lipase 23 Urine Color Yellow Urine Appearance Clear Urine pH 6.0 Ur Specific [place] 1.015 Urine Protein 30 (1+) H Urine Glucose (UA) Negative Urine Ketones Negative Urine Blood Moderate (2+) H Urine Nitrite Negative Ur Leukocyte Esterase Negative Urine RBC >20 H Urine WBC 0-5 Ur Squamous Epith Cells 0-2 Urine Bacteria None Seen Hyaline Casts 0-2 Imaging Radiologist's Impressions: Impressions Abdomen/Pelvis CT 06/24/24 12:41 IMPRESSION: 1. There is a growing stone/stones seen within the remnant cystic duct. If the patient has right upper quadrant pain, this can be a contributory cause. MRCP may be helpful for further evaluation prior to consideration of stumpectomy. 2. Marked bilateral hydronephrosis and dilatation of the ureters down to the level of the bladder. The bladder is markedly distended. The prostate is moderately to markedly enlarged. Findings are suggestive of bladder outlet obstruction. 3. Incidental note made of mild cylindrical bronchiectasis at the lung bases, colonic diverticulosis without diverticulitis and marked degenerative changes in the spine. Fleischner guidelines were followed. Electronically signed by: Rivas Sanchez MD 06/24/2024 03:56 PM EDT RP Chest X-Ray 06/24/24 12:41 IMPRESSION: Right basilar atelectasis. Electronically signed by: Hitesh Maldonado MD 06/24/2024 02:45 PM EDT RP Assessment and Plan (1) Bladder outlet obstruction: Status: Acute (2) Bilateral hydronephrosis: Status: Acute Plan 83/m with dm 2, htn, s/p ccy here with abdominal pain cystic duct stone, urinary retention with bilateral hydronephrosis. Abd pain + Cystic duct stone on CT -MRCP -GI surgery Urinary retention Bilateral hydronephrosis -Loza in -continue flomax and finesteride -urology consult EDNA d/t obstructive uropathy -loza -ivf Hyperkalemia d/t edna and lisinopril -hold lisinopril -given calcium gluconate, insulin and glucose -repeat tommorrow GERD -PPI DM -hold metformin -SSI -diabetic diet HLD -statin HTN -resume norvasc, hold lisinopril d/t hyperkalemia PAD -Plavix, ASA, statin Full code DVT prophylaxis, device in case surgery at least 2 midnights admit for management of EDNA, hyperkalemia hydronephrosis, choledocholithias Quality Stroke Does the patient have a stroke diagnosis?: No VTE Prior VTE?: No VTE Risk Level:: Medical - moderate - high VTE Device Contraindication: N/A - Device Ordered VTE Drug Contraindication: Treatment Not Indicated
--- NOTE | 2024-06-24 18:11 | PHA.MEDREC ---
Addendum entered by Ara Stark [facility] 06/24/24 18:15: Notified Dr. Howell of the switch from lisinopril to amlodipine. Original Note: Pharmacy Consult ? Medication Reconciliation Pharmacy has completed the medication reconciliation. Spoke to patient and confirmed medication list. Patient said his doctor stopped lisinopril and start him on amlodipine. His last dose of lisinopril was yesterday 06/23/24 and he was supposed to start the amlodipine today 06/24/24 but he didn't get a chance to. Doctor also recently switched him from omeprazole to pantoprazole. Last dose of medications was yesterday 06/23/24.
--- NOTE | 2024-06-24 18:15 | P.CONGS_ITS ---
History of Present Illness Consult details Consult date: 06/24/24 Narrative: 83 y/o male with PMH of DM2, PAD, HTN, s/p CCY, BPH here with abdominal pain since 4 am and difficulty voiding, no fever, no n/v, no diarrhea or constipation. CTA of abdomena nd pelvis showed 1. There is a growing stone/stones seen within the remnant cystic duct. If the patient has right upper quadrant pain, this can be a contributory cause. MRCP may be helpful for further evaluation prior to consideration of stumpectomy. 2. Marked bilateral hydronephrosis and dilatation of the ureters down to the level of the bladder. The bladder is markedly distended. The prostate is moderately to markedly enlarged. Findings are suggestive of bladder outlet obstruction. LFTS are normal, no jaundice, a loza was inserted with return of over 1000 cc after voiding about 200cc General surgery called to consult based on CT scan findings. Pt complaining epigastric /right sided abdo pain - no nausea or vomiting no jaundice lfts normal pt had gallbladder removed many years ago - open incision. said it had biurst- it was probably a difficult one whereby maybe some of the gallbladder/long cystic duct stump was left behind and now ? stones Review of Systems 2 Review of Systems: urinary symptoms PMFSH Past Medical History Medical History PAD (peripheral artery disease) Skin ulcer of left great toe Hypertension Type 2 diabetes mellitus Diabetes PSA (psoriatic arthritis) Surgical History Surgical History History of atherectomy Social History Social History Household Members: Children Household Members Other:: 1 Housing: House Do you presently have visiting nurse or other home services: Yes Alcohol intake: former Comment: 1 assist with walker Patient Tobacco Use Status: Never used Tobacco Tobacco use type: Cigarette e-Cigarette/Vaping Use: Never Used Second Hand Smoke Exposure: No Advance Directives: Yes Advance Directives Information Provided: Yes Advance Directives on File: No Advance Directives Date on File: 10/10/22 Do you have a plan to hurt others: No Plan service: No Current occupational status: retired Meds Allergies Allergy/AdvReac Type Severity Reaction Status Date / Time clindamycin [From CLEOCIN] Allergy Severe BLACK STOOL Verified 06/24/24 10:26 Active Medications: Current Medications Acetaminophen (Acetaminophen 325 Mg Tablet) 650 mg PO Q6H PRN PRN Reason: Pain, Mild (Pain Scale 1-3), fever or headache Calcium Carbonate (Calcium Carbonate 750 Mg Tab.Chew) 750 mg PO Q4H PRN PRN Reason: Heartburn Glucose (Glucose Gel 15 Gm Gel..Gram.) 15 gm PO Q15M PRN; Protocol PRN Reason: per Hypoglycemia Standing Ord. Dextrose/Sodium Chloride (D5ns) 1,000 mls @ 80 mls/hr IVCONT .[id number] [facility] Last Admin: 06/24/24 17:08 Dose: 80 mls/hr Dextrose (D10) 250 mls @ 750 mls/hr IV Q15M PRN; Protocol PRN Reason: per Hypoglycemia Standing Ord. Insulin Human Lispro (Insulin Lispro 100 Unit/Ml 3 Ml Vial) [facility]; Protocol Magnesium Hydroxide (Milk Of Magnesia 30 Ml Oral.Susp) 30 ml PO DAILY PRN PRN Reason: Constipation Melatonin (Melatonin 3 Mg Tablet) 6 mg PO BEDTIME PRN PRN Reason: Insomnia Sodium Chloride (0.9 % Sodium Chloride Flush 3 Ml Syringe) 3 ml IVFLUSH [facility] Home Medications ?Medication ?Instructions ?Recorded ?Confirmed ?Last Taken ?Type metformin 500 mg tablet 500 mg PO BID 06/30/20 06/24/24 06/23/24 History multivitamin 1 tab PO DAILY@1200 06/30/20 06/24/24 06/23/24 History atorvastatin 40 mg tablet 40 mg PO MOTH@1800 10/10/22 06/24/24 06/23/24 History cyclosporine 0.05 % eye drops in a 1 drp ophthalmic (eye) Q12H 10/10/22 06/24/24 06/23/24 History dropperette (Restasis) pantoprazole 40 mg tablet,delayed 40 mg PO DAILY 06/24/24 06/24/24 06/23/24 History release Physical Exam 2 Vital Signs: Vital Signs: Last Vital Signs Temp 98.2 F 06/24/24 16:57 Pulse 52 06/24/24 16:57 Resp 12 06/24/24 16:57 BP 162/61 H 06/24/24 16:57 Pulse Ox 98 06/24/24 16:57 O2 Del Method Room Air 06/24/24 16:57 BMI result Body Mass Index 25.8 Const: General: cooperative, healthy appearing, comfortable and no acute distress Eyes: Other: nonicteric GI: Other: tender with mild guarding ruq active bowel sounds Results Labs 06/24/24 12:53 06/24/24 12:53 Labs: Abnormal lab results 06/24/24 06/24/24 06/24/24 Range/Units 10:37 12:53 12:53 RBC 4.02 L D 3.88 L (4.60-5.80) X10*6/uL Hgb 13.1 L D 13.0 L (14.0-18.0) g/dl Hct 39.0 L D 37.9 L (42.0-52.0) % MCH 33.5 H (27.0-33.0) pg Potassium 5.7 H 5.8 H 5.2 H (3.3-5.1) mmol/L Anion Gap 10 L (12-20) BUN 35 H (9-16) mg/dL Urine Protein (Neg-Trace) mg/dL Urine Blood (Negative) Urine RBC (0-2) /HPF 06/24/24 06/24/24 06/24/24 Range/Units 12:53 12:53 14:19 RBC (4.60-5.80) X10*6/uL Hgb (14.0-18.0) g/dl Hct (42.0-52.0) % MCH (27.0-33.0) pg Potassium (3.3-5.1) mmol/L Anion Gap 10 L (12-20) BUN 33 H 33 H (9-16) mg/dL Urine Protein 30 (1+) H (Neg-Trace) mg/dL Urine Blood Moderate (2+) H (Negative) Urine RBC >20 H (0-2) /HPF Short CBC 06/24/24 06/24/24 Range/Units 10:37 12:53 WBC 8.2 10.0 (4.8-10.8) X10*3/uL Hgb 13.1 L D 13.0 L (14.0-18.0) g/dl Hct 39.0 L D 37.9 L (42.0-52.0) % Plt Count 228 236 (160-400) X10*3/uL BMP 06/24/24 06/24/24 06/24/24 10:37 12:53 12:53 Sodium 140 139 140 Potassium 5.7 H 5.8 H Chloride 106 Carbon Dioxide 28 BUN 35 H Creatinine 1.27 Calcium 10.2 D 06/24/24 06/24/24 06/24/24 12:53 12:53 12:53 Sodium Potassium 5.2 H Chloride 106 106 Carbon Dioxide 29 29 BUN 33 H Creatinine Calcium 06/24/24 06/24/24 06/24/24 12:53 12:53 12:53 Sodium Potassium Chloride Carbon Dioxide BUN 33 H Creatinine 1.24 1.22 Calcium 10.1 9.9 Liver Function 06/24/24 06/24/24 Range/Units 10:37 12:53 Total Bilirubin 0.8 0.8 (0.0-1.0) mg/dL Direct Bilirubin 0.3 0.3 (0.0-0.5) mg/dL AST 17 17 (5-37) U/L ALT 10 10 (0-40) U/L Alkaline Phosphatase 83 81 (39-117) U/L Albumin 4.2 4.1 (3.5-5.0) g/dL Urine 06/24/24 Range/Units 14:19 Urine Color Yellow Urine Appearance Clear Urine pH 6.0 (5.0-9.0) Ur Specific [place] 1.015 (1.005-1.025) Urine Protein 30 (1+) H (Neg-Trace) mg/dL Urine Glucose (UA) Negative (Negative) mg/dL All other labs normal. Imaging Abdomen CT scan report/results: report reviewed and image reviewed CT scan - pelvis: report reviewed and image reviewed Additional studies: Chart - [employer] ? Diagnostics Subcategory All Activity ??:?? All Time ??:?? All Subcategories Filter Laboratory Imaging Microbiology Pathology Blood Bank Tests Cardiovascular Other Specialty DATE TYPE STATUS REF RANGE/AUTHOR Hx Today 12:41 Chest X-Ray Signed Htiesh Maldonado Today 12:41 Abdomen/Pelvis CT Signed Rivas Sanchez 01/01/23 01:09 Ankle X-Ray Signed Camron Bolanos 11/02/22 16:[address] [facility] 10/31/22 19:48 Duplex Scan Lower Extremity Artery Signed Syed Smith 10/31/22 19:48 Abd US Ao-IVC-BPG Signed Syed Smith 10/30/22 14:28 Foot X-Ray Signed Emory Resendez 10/20/22 16:39 Midline Removal Signed Riya Orozco 10/19/22 00:00 COLLEGE SCOUTING COORDINATOR, Femoral-Popliteal ? 10/19/22 00:00 Abdominal Angiography Cancelled 10/18/22 14:05 Chest X-Ray Signed Lance Olguin 10/17/22 11:09 Renal Ultrasound Signed Reinier Rubin 10/17/22 11:09 Bladder Ultrasound Signed Reinier Rubin 10/16/22 10:47 PICC Line Insertion Signed Riya Orozco 10/11/22 16:03 Foot MRI Signed Yon Acharya 10/10/22 18:05 Duplex Scan Lower Extremity Artery Signed Syed Smith 10/10/22 12:00 Foot X-Ray Signed Arun Webb 05/31/21 15:00 Carotid Doppler Study Signed Naima Gutiérrez Ronald E Acute 83, M?1940 MRN#? [id number] ADM IN,?Emergency Department??ED Bed 21?-ED21? 5ft 8in 170lb BSA: 1.92m? BMI: 25.8kg/m? Acc#? [id number] Full Code Historical Visits Allergies clindamycin (From CLEOCIN) BLACK STOOL Problems ? ONSET Bladder outlet obstruction Bilateral hydronephrosis 1st degree AV block Acute urinary retention Acute hyperkalemia Calculus of cystic duct Osteomyelitis PAD (peripheral artery disease) Vital Signs Today 22:18 BP 161/68?H Pulse 57? Resp 12? Temp 98.3 F? O2 Sat 97? Delivery Room Air? Home Meds Confirmed Prescription Monitoring Program MEDICATIONS (INSTRUCTIONS) LAST TAKEN Active atorvastatin 40 mgPOMOTH@1800 06/23/24 clopidogrel 75 mgPODAILY#30 tabs 06/23/24 cyclosporine [Restasis] 1 drpophthalmic (eye)Q12H 06/23/24 finasteride 5 mgPODAILY#30 tabs 06/23/24 metformin 500 mg tablet 500 mgPOBID 06/23/24 multivitamin 1 tabPODAILY@1200 06/23/24 pantoprazole 40 mgPODAILY 06/23/24 tamsulosin 0.4 mgPOBEDTIME#30 caps 06/23/24 My Widget No Data to Display Diagnostics Reports Lefty Ortiz??83??M??1940 ? Allergy/Adv: clindamycin Close Chest X-Ray (Signed) Hitesh Maldonado - 06/24/24 Abdomen/Pelvis CT (Signed) Rivas Sanchez - 06/24/24 Ankle X-Ray (Signed) Camron Bolanos - 01/01/23 PICC Line Insertion (Signed) Eliana Jackson - 11/02/22 Duplex Scan Lower Extremity Artery (Signed) Syed Smith - 10/31/22 Abd US Ao-IVC-BPG (Signed) Syed Smith - 10/31/22 Foot X-Ray (Signed) Emory Resendez - 10/30/22 Midline Removal (Signed) Riya Orozco - 10/20/22 COLLEGE SCOUTING COORDINATOR, Femoral-Popliteal 10/19/22 Abdominal Angiography (Cancelled) 10/19/22 Chest X-Ray (Signed) Lance Olguin - 10/18/22 Renal Ultrasound (Signed) Reinier Rubin - 10/17/22 Bladder Ultrasound (Signed) Reinier Rubin - 10/17/22 PICC Line Insertion (Signed) Riya Orozco - 10/16/22 Foot MRI (Signed) Yon Acharya - 10/11/22 Duplex Scan Lower Extremity Artery (Signed) Syed Smith - 10/10/22 Foot X-Ray (Signed) Arun Webb - 10/10/22 Carotid Doppler Study (Signed) Naima Gutiérrez - 05/31/21 Launch?Image [address] [address] [address] Scan Report Signed Patient: Lefty Ortiz MR#: [id number] : 1940 Acct:[id number] Age/Sex: 83 / M ADM Date: 06/24/24 Loc: HO.ED Attending Dr: Ordering Physician: Eyal Rae MD Date of Service: 06/24/24 Procedure(s): CT abdomen pelvis w IV con Accession Number(s): [id number] cc: NAS RILEY MD; Eyal Rae MD~ EXAMINATION: CT ABDOMEN AND PELVIS WITH CONTRAST CLINICAL INFORMATION: Right-sided abdominal pain COMPARISON: CT abdomen pelvis 12/25/2015 TECHNIQUE: Multidetector volumetric images were obtained from the superior aspect of the liver through the pubic symphysis following administration 85 mL of Omnipaque 350 intravenous contrast. Sagittal and coronal reformatted images were obtained on the technologist's workstation. Oral contrast: No This CT examination was performed using dose optimization techniques as appropriate, variously including the following: *Automated exposure control *Adjustment of mA and/or kV according to patient size (this includes techniques or standardized protocols for targeted exams where dose is matched to indication/reason for exam; i.e. extremities or head) *Use of iterative reconstruction technique DLP: 984 mGy-cm FINDINGS: LUNG BASES: There is mild cylindrical bronchiectasis at the lung bases coronary calcium is present. LIVER, GALLBLADDER, AND BILIARY TREE: Status post cholecystectomy. In what appears to be the gallbladder fossa, there is a small fluid collection seen with a central calcification which has increased in size since the prior study. This connects to the common bile duct and likely represents a cystic duct stump stone which has increased in size when compared to 2016. The stone or cluster of stones measures 1.2 x 0.7 x 1.2 cm (see saved royal images). Comment bile duct is mildly prominent which can be seen after cholecystectomy. No liver masses or significant intrahepatic biliary ductal dilatation is seen. PANCREAS: Unremarkable. SPLEEN: Unremarkable. ADRENAL GLANDS: Unremarkable. KIDNEYS, URETERS, BLADDER AND PROSTATE: The kidneys are normal in size, shape, and attenuation. There is marked bilateral hydronephrosis and dilatation of the ureters down to the level of the bladder. No obstructing calculi are seen. No intrarenal calculi are seen. No renal masses are detected. The bladder is markedly distended. The prostate is moderately to markedly enlarged. GASTROINTESTINAL TRACT: There is marked colonic diverticulosis without diverticulitis most prominent in the left colon. The small and large bowel are otherwise unremarkable. The appendix is unremarkable. ABDOMINAL WALL: No significant hernia is appreciated. LYMPH NODES: Normal. VASCULAR: Calcific atherosclerotic changes are present in the aorta and iliofemoral vessels. There is no evidence of an abdominal aortic aneurysm. PELVIC VISCERA: See discussion regarding prostate above. No other pelvic masses are seen. No free fluid. OSSEOUS STRUCTURES: There are marked degenerative changes seen in the spine. There is osseous fusion of L4 and L5 with marked grade 1 anterolisthesis of L5 upon S1. CT/CT abdomen pelvis w IV con IMPRESSION: 1. There is a growing stone/stones seen within the remnant cystic duct. If the patient has right upper quadrant pain, this can be a contributory cause. MRCP may be helpful for further evaluation prior to consideration of stumpectomy. 2. Marked bilateral hydronephrosis and dilatation of the ureters down to the level of the bladder. The bladder is markedly distended. The prostate is moderately to markedly enlarged. Findings are suggestive of bladder outlet obstruction. 3. Incidental note made of mild cylindrical bronchiectasis at the lung bases, colonic diverticulosis without diverticulitis and marked degenerative changes in the spine. Fleischner guidelines were followed. Electronically signed by: Rivas Sanchez MD 06/24/2024 03:56 PM EDT RP Dictated By: Rivas Sanchez MD Signed By: <Electronically signed by Rivas Sanchez MD in OV> 06/24/24 1556 DD/ 1241 TD/TT: 06/24/24 1349 Dispensary Clerk: HERMES Assessment and Plan (1) Calculus of cystic duct: Status: Acute Plan 83 year old male with ?cystic duct stump stones in the setting or urinary retention and other med issues. lfts normal -? if this is causative of his pain. Agree with MRCP to evaluate biliary duct anatomy. No need for any urgent intervention will follow along Procedures Date of Service Date of Service: 06/24/24
[2024-06-24 21:18] LABS: Glucose, Whole Blood 125 mg/dL (60-115)
--- NOTE | 2024-06-24 21:32 | MHC.EDTECH ---
This tech entered another patients belongings in the wrong patient chart. Addended and updated other patient to correct patient, and entered this patients (Donald') belongings to his chart.
[2024-06-24] MEDS: Acetaminophen 325 MG TABLET 650 MG PO (21:56)
[2024-06-24] MEDS: Tamsulosin HCL 0.4 MG CAPSULE PO (21:56)
--- NOTE | 2024-06-24 23:43 | MHC.EDTECH ---
This pct assumed care of patient at 2300 ,Patient awake ,watching television .vitals taken ,1000 ml empty from [place]upe bag .Call ingram within Pt reach .
[2024-06-25] VITALS (8 sets, daily range): BP systolic 142–169; BP diastolic 66–78; PULSE 58–66; RESP 15–20; TEMP 36.4–37; O2SAT 94–99; BMI 24.5
--- NOTE | 2024-06-25 01:58 | PC.NURSE ---
Addendum entered by Zahira Street 06/25/24 02:01: loza cath in place and draining well, about 650 of slightly tinged with hematuria-light pink blood at this time Original Note: pt is alert and oriented, skin pwd, respirations even and unlabored, pt denies pain/nausea at this time, abd soft and non-tender, pt's vs stable and ns on the monitor.
--- NOTE | 2024-06-25 02:28 | MHC.EDTECH ---
Patient awake ,and was moved into a hospital bed ,vitals taken ,700 ml urine empty from olza bag ,Call ingram within pt reach .
[2024-06-25 05:37] LABS: Anion Gap 12 (12-20); Blood Urea Nitrogen 20 mg/dL (9-16); Calcium 9.9 mg/dL (8.4-10.2); Carbon Dioxide 26 mmol/L (22-29); Chloride 104 mmol/L (96-108); Creatinine Clr Calc Pharmacy 47.1; Estimated Glomerular Filt Rate 59; Glucose Random 143 mg/dL (60-115); Potassium 4.8 mmol/L (3.3-5.1); Sodium 137 mmol/L (135-145)
[2024-06-25] MEDS: Dextrose 5 % and 0.9 % NaCl 1,000 ML 80 ML IVCONT ×2 (06:13→20:25)
[2024-06-25] MEDS: Pantoprazole Sodium 20 MG TABLET.DR 40 MG PO (07:07)
--- NOTE | 2024-06-25 07:13 | PC.NURSE ---
Care of Pt assumed at change of shift. Pt resting quietly in bed with lights dimmed and TV on. VSS, A&Ox3 Pt is NPO d/t procedure later today.
[2024-06-25 07:42] LABS: Glucose, Whole Blood 125 mg/dL (60-115)
--- NOTE | 2024-06-25 08:53 | PC.NURSE ---
MRI screening form completed and scanned to MRI. Form given to air conditioning unit assembler to be filed in chart.
--- NOTE | 2024-06-25 09:01 | P.CNGI_ITS ---
History of Present Illness Data of Consult Service Date: 06/25/24 Requesting physician: Macario Howell Primary Care Provider: Omi Farrar MD [facility] Reason for consult: cystic duct stones This is an 83-year-old gentleman who presented to the hospital for abdominal pain and difficulty voiding secondary to bladder outlet obstruction. As part of the workup a CT scan of the abdomen and pelvis was obtained that showed cystic stump stones. Gastroenterology has been consulted for further evaluation and management. Patient reports 2 days of abd pain that started off as lower abd and then became diffuse by the day of presentation. Assoc with inability to urinate. Prior to this was in his usual state of health. No N/V, changes in appetite. Pertinent surg hx includes perforated GB with abscess in 2004 with no identifiable gallbladder wall or cystic duct per op note and was therefore managed with GB fossa drainage. Resultant bile leak from cystic duct remnant was managed with sphincterotomy and stent placement a few days later. On arrival was noted to be afebrile and stable. Labs were significant for no white count. Normal LFTs. Creatinine up to 1.27 but slowly recovering. Dirty UA. Patient has already been seen by surgery colleague as well and plan is for MRCP. Review of Systems 2 Review of Systems: Yes all other systems are reviewed and are negative PMFSH Past Medical History Medical History PAD (peripheral artery disease) Skin ulcer of left great toe Hypertension Type 2 diabetes mellitus Diabetes PSA (psoriatic arthritis) Surgical History Surgical History History of atherectomy Social History Social History Household Members: Children Household Members Other:: 1 Housing: House Do you presently have visiting nurse or other home services: Yes Alcohol intake: former Comment: 1 assist with walker Patient Tobacco Use Status: Never used Tobacco Tobacco use type: Cigarette e-Cigarette/Vaping Use: Never Used Second Hand Smoke Exposure: No Advance Directives: Yes Advance Directives Information Provided: Yes Advance Directives on File: No Advance Directives Date on File: 10/10/22 Do you have a plan to hurt others: No Plan service: No Current occupational status: retired Meds Allergies Allergy/AdvReac Type Severity Reaction Status Date / Time clindamycin [From CLEOCIN] Allergy Severe BLACK STOOL Verified 06/24/24 10:26 Active Medications: Current Medications Acetaminophen (Acetaminophen 325 Mg Tablet) 650 mg PO Q6H PRN PRN Reason: Pain, Mild (Pain Scale 1-3), fever or headache Last Admin: 06/24/24 21:56 Dose: 650 mg Atorvastatin Calcium (Atorvastatin Calcium 40 Mg Tablet) 40 mg PO MOTH@1800 [facility] Calcium Carbonate (Calcium Carbonate 750 Mg Tab.Chew) 750 mg PO Q4H PRN PRN Reason: Heartburn Clopidogrel Bisulfate (Clopidogrel Bisulfate 75 Mg Tablet) 75 mg PO DAILY [facility] Finasteride (Finasteride 5 Mg Tablet) 5 mg PO DAILY [facility] Glucose (Glucose Gel 15 Gm Gel..Gram.) 15 gm PO Q15M PRN; Protocol PRN Reason: per Hypoglycemia Standing Ord. Dextrose/Sodium Chloride (D5ns) 1,000 mls @ 80 mls/hr IVCONT .[id number] [facility] Last Admin: 06/25/24 06:13 Dose: 80 mls/hr Dextrose (D10) 250 mls @ 750 mls/hr IV Q15M PRN; Protocol PRN Reason: per Hypoglycemia Standing Ord. Insulin Human Lispro (Insulin Lispro 100 Unit/Ml 3 Ml Vial) 0 unit SUBCUT QIDACHS [facility]; Protocol Last Admin: 06/25/24 08:27 Dose: Not Given Magnesium Hydroxide (Milk Of Magnesia 30 Ml Oral.Susp) 30 ml PO DAILY PRN PRN Reason: Constipation Melatonin (Melatonin 3 Mg Tablet) 6 mg PO BEDTIME PRN PRN Reason: Insomnia Multivitamins/Vitamin C (Multivitamin Tablet) 1 tab PO DAILY@1200 [facility] Non-Formulary Medication (Cyclosporine [Restasis]) 1 drop EYE-BOTH Q12H [facility] Pantoprazole Sodium (Pantoprazole Sodium 20 Mg Tablet.Dr) 40 mg PO DAILY@0630 [facility] Last Admin: 06/25/24 07:07 Dose: 40 mg Sodium Chloride (0.9 % Sodium Chloride Flush 3 Ml Syringe) 3 ml IVFLUSH QSHIFT [facility] Last Admin: 06/25/24 01:58 Dose: Not Given Tamsulosin HCl (Tamsulosin Hcl 0.4 Mg Capsule) 0.4 mg PO BEDTIME [facility] Last Admin: 09/24/24 21:56 Dose: 0.4 mg Home Medications ?Medication ?Instructions ?Recorded ?Confirmed ?Last Taken ?Type metformin 500 mg tablet 500 mg PO BID 06/30/20 06/24/24 06/23/24 History multivitamin 1 tab PO DAILY@1200 06/30/20 06/24/24 06/23/24 History atorvastatin 40 mg tablet 40 mg PO MOTH@1800 10/10/22 06/24/24 06/23/24 History cyclosporine 0.05 % eye drops in a 1 drp ophthalmic (eye) Q12H 10/10/22 06/24/24 06/23/24 History dropperette (Restasis) pantoprazole 40 mg tablet,delayed 40 mg PO DAILY 06/24/24 06/24/24 06/23/24 History release Physical Exam 2 Vital Signs: Vital Signs: Last Vital Signs Temp 97.6 F 06/25/24 06:15 Pulse 60 06/25/24 07:09 Resp 20 06/25/24 07:09 BP 157/76 H 06/25/24 07:09 Pulse Ox 98 06/25/24 07:09 O2 Del Method Room Air 06/25/24 07:09 BMI result Body Mass Index 25.8 Elderly male NAD ABd soft, nontender, nondistended, no guarding No resp distress Results Labs 06/24/24 12:53 06/25/24 04:24 Labs: Short CBC 06/24/24 06/24/24 Range/Units 10:37 12:53 WBC 8.2 10.0 (4.8-10.8) X10*3/uL Hgb 13.1 L D 13.0 L (14.0-18.0) g/dl Hct 39.0 L D 37.9 L (42.0-52.0) % Plt Count 228 236 (160-400) X10*3/uL BMP 06/24/24 06/24/24 06/24/24 10:37 12:53 12:53 Sodium 140 139 140 Potassium 5.7 H 5.8 H Chloride 106 Carbon Dioxide 28 BUN 35 H Creatinine 1.27 Calcium 10.2 D 06/24/24 06/24/24 06/24/24 12:53 12:53 12:53 Sodium Potassium 5.2 H Chloride 106 106 Carbon Dioxide 29 29 BUN 33 H Creatinine Calcium 09/06/24/24 06/24/24 12:53 12:53 12:53 Sodium Potassium Chloride Carbon Dioxide BUN 33 H Creatinine 1.24 1.22 Calcium 10.1 9.9 06/25/24 04:24 Sodium 137 Potassium 4.8 Chloride 104 Carbon Dioxide 26 BUN 20 H Creatinine 1.19 Calcium 9.9 Liver Function 06/24/24 06/24/24 Range/Units 10:37 12:53 Total Bilirubin 0.8 0.8 (0.0-1.0) mg/dL Direct Bilirubin 0.3 0.3 (0.0-0.5) mg/dL AST 17 17 (5-37) U/L ALT 10 10 (0-40) U/L Alkaline Phosphatase 83 81 (39-117) U/L Albumin 4.2 4.1 (3.5-5.0) g/dL Urine 06/24/24 Range/Units 14:19 Urine Color Yellow Urine Appearance Clear Urine pH 6.0 (5.0-9.0) Ur Specific [place] 1.015 (1.005-1.025) Urine Protein 30 (1+) H (Neg-Trace) mg/dL Urine Glucose (UA) Negative (Negative) mg/dL Assessment and Plan (1) Calculus of cystic duct: Status: Acute Plan Imaging personally reviewed - stones are located in remnant cystic duct vs remnant GB (see details of perforated GB 2005 in HPI). CBD is decompressed and LFTs are normal. Pt has been seen by surgery colleagues and plan is for MRCP. Will follow results. No intervention from GI standpoint indicated at present. Thank you for allowing me to participate in his care. Pls do not hesitate to reach out for questions or concerns. Procedures Date of Service Date of Service: 06/25/24
--- NOTE | 2024-06-25 09:42 | P.PNGS_ITS ---
Subjective Subjective Date of Service: 06/25/24 <Nickie Briones PA-C - Last Filed: 06/25/24 09:54> 06/25/24 <Jose Bonilla MD - Last Filed: 06/25/24 10:15> Interval history: Feels a little better this morning, pain mild. Asking for food. <Nickie Briones PA-C - Last Filed: 06/25/24 09:54> Physical Exam 2 Vital Signs: Vital Signs: Last Vital Signs Temp 97.6 F 06/25/24 06:15 Pulse 60 06/25/24 07:09 Resp 20 06/25/24 07:09 BP 157/76 H 06/25/24 07:09 Pulse Ox 98 06/25/24 07:09 O2 Del Method Room Air 06/25/24 07:09 BMI result Body Mass Index 25.8 <Nickie Briones PA-C - Last Filed: 06/25/24 09:54> Const: General: comfortable, no acute distress and alert <Nickie Briones PA-C - Last Filed: 06/25/24 09:54> Resp: Effort & Inspection: normal respiratory effort <JEN Ryan Last Filed: 06/25/24 09:54> GI: Inspection: No distended <Nickie Briones PA-C - Last Filed: 06/25/24 09:54> Palpation (GI): Soft to palpation, Tenderness to palpation present (GI) in the epigastrum (mild); with no rebound tenderness and no guarding <Nickie Briones PA-C - Last Filed: 06/25/24 09:54> Skin: General skin exam: no rashes or lesions noted and no jaundice < Nickie Briones PA-C - Last Filed: 06/25/24 09:54> Neuro: General: moves all extremities <JEN Ryan Last Filed: 06/25/24 09:54> Objective Data Active Medications Acetaminophen (Acetaminophen 325 Mg Tablet) 650 mg PO Q6H PRN PRN Reason: Pain, Mild (Pain Scale 1-3), fever or headache Last Admin: 06/24/24 21:56 Dose: 650 mg Documented By: SOHAN Atorvastatin Calcium (Atorvastatin Calcium 40 Mg Tablet) 40 mg PO MOTH@1800 [facility] Calcium Carbonate (Calcium Carbonate 750 Mg Tab.Chew) 750 mg PO Q4H PRN PRN Reason: Heartburn Clopidogrel Bisulfate (Clopidogrel Bisulfate 75 Mg Tablet) 75 mg PO DAILY [facility] Finasteride (Finasteride 5 Mg Tablet) 5 mg PO DAILY [facility] Glucose (Glucose Gel 15 Gm Gel..Gram.) 15 gm PO Q15M PRN; Protocol PRN Reason: per Hypoglycemia Standing Ord. Dextrose/Sodium Chloride (D5ns) 1,000 mls @ 80 mls/hr IVCONT .[id number] [facility] Last Admin: 06/25/24 06:13 Dose: 80 mls/hr Documented By: EDER Dextrose (D10) 250 mls @ 750 mls/hr IV Q15M PRN; Protocol PRN Reason: per Hypoglycemia Standing Ord. Insulin Human Lispro (Insulin Lispro 100 Unit/Ml 3 Ml Vial) 0 unit SUBCUT QIDACHS [facility]; Protocol Last Admin: 06/25/24 08:27 Dose: Not Given Documented By: JOYCE Non-Admin Reason: No Insulin Coverage Magnesium Hydroxide (Milk Of Magnesia 30 Ml Oral.Susp) 30 ml PO DAILY PRN PRN Reason: Constipation Melatonin (Melatonin 3 Mg Tablet) 6 mg PO BEDTIME PRN PRN Reason: Insomnia Multivitamins/Vitamin C (Multivitamin Tablet) 1 tab PO DAILY@1200 [facility] Non-Formulary Medication (Cyclosporine [Restasis]) 1 drop EYE-BOTH Q12H [facility] Pantoprazole Sodium (Pantoprazole Sodium 20 Mg Ruddy.) 40 mg PO DAILY@0630 [facility] Last Admin: 06/25/24 07:07 Dose: 40 mg Documented By: JOYCE Sodium Chloride (0.9 % Sodium Chloride Flush 3 Ml Syringe) 3 ml IVFLUSH QSHIFT [facility] Last Admin: 06/25/24 01:58 Dose: Not Given Documented By: EDER Non-Admin Reason: IV Running Tamsulosin HCl (Tamsulosin Hcl 0.4 Mg Capsule) 0.4 mg PO BEDTIME [facility] Last Admin: 06/24/24 21:56 Dose: 0.4 mg Documented By: SOHAN <Nickie Briones PA-C - Last Filed: 06/25/24 09:54> Labs CBC & Chem 7: 06/24/24 12:53 06/25/24 04:24 <Nickie Briones PA-C - Last Filed: 06/25/24 09:54> Labs: Laboratory Results - last 24 hr 06/24/24 06/24/24 06/24/24 10:37 12:53 12:53 MCV 97.0 97.7 MCH 32.6 33.5 H MCHC 33.6 34.3 RDW 12.3 12.4 Plt Count 228 236 MPV 10.6 10.3 Immature Gran % (Auto) 0.4 0.3 Neut % (Auto) 62.0 67.4 Lymph % (Auto) 26.3 21.9 [place] % (Auto) 10.5 9.7 Eos % (Auto) 0.7 0.6 Baso % (Auto) 0.1 0.1 Lymph # (Auto) 2.2 2.2 [place] # (Auto) 0.9 1.0 Eos # (Auto) 0.1 0.1 Baso # (Auto) 0.0 0.0 Abs Immat Gran (auto) 0.03 0.03 Absolute Neuts (auto) 5.1 6.7 Absolute Nucleated RBC 0.000 0.000 Nucleated RBC % (auto) 0.0 0.0 Anion Gap 12 10 L 10 L Estim Creat Clear Calc 44.1 45.2 Estimated GFR 54 POC Glucose Random Glucose 114 Calcium 10.2 D Total Bilirubin 0.8 Direct Bilirubin 0.3 AST 17 ALT 10 Alkaline Phosphatase 83 Troponin I High Sens Total Protein 7.1 Albumin 4.2 Lipase 26 Urine Color Urine Appearance Urine pH Ur Specific [place] Urine Protein Urine Glucose (UA) Urine Ketones Urine Blood Urine Nitrite Ur Leukocyte Esterase Urine RBC Urine WBC Ur Squamous Epith Cells Urine Bacteria Hyaline Casts 06/24/24 06/24/24 06/24/24 12:53 12:53 12:53 MCV MCH MCHC RDW Plt Count MPV Immature Gran % (Auto) Neut % (Auto) Lymph % (Auto) [place] % (Auto) Eos % (Auto) Baso % (Auto) Lymph # (Auto) [place] # (Auto) Eos # (Auto) Baso # (Auto) Abs Immat Gran (auto) Absolute Neuts (auto) Absolute Nucleated RBC Nucleated RBC % (auto) Anion Gap Estim Creat Clear Calc 45.9 Estimated GFR 56 57 POC Glucose Random Glucose 111 110 Calcium 10.1 Total Bilirubin Direct Bilirubin AST ALT Alkaline Phosphatase Troponin I High Sens Total Protein Albumin Lipase Urine Color Urine Appearance Urine pH Ur Specific [place] Urine Protein Urine Glucose (UA) Urine Ketones Urine Blood Urine Nitrite Ur Leukocyte Esterase Urine RBC Urine WBC Ur Squamous Epith Cells Urine Bacteria Hyaline Casts 06/24/24 06/24/24 06/24/24 12:53 14:19 21:08 MCV MCH MCHC RDW Plt Count MPV Immature Gran % (Auto) Neut % (Auto) Lymph % (Auto) [place] % (Auto) Eos % (Auto) Baso % (Auto) Lymph # (Auto) [place] # (Auto) Eos # (Auto) Baso # (Auto) Abs Immat Gran (auto) Absolute Neuts (auto) Absolute Nucleated RBC Nucleated RBC % (auto) Anion Gap Estim Creat Clear Calc Estimated GFR POC Glucose 125 H Random Glucose Calcium 9.9 Total Bilirubin 0.8 Direct Bilirubin 0.3 AST 17 ALT 10 Alkaline Phosphatase 81 Troponin I High Sens 2.8 Total Protein 6.9 Albumin 4.1 Lipase 23 Urine Color Yellow Urine Appearance Clear Urine pH 6.0 Ur Specific [place] 1.015 Urine Protein 30 (1+) H Urine Glucose (UA) Negative Urine Ketones Negative Urine Blood Moderate (2+) H Urine Nitrite Negative Ur Leukocyte Esterase Negative Urine RBC >20 H Urine WBC 0-5 Ur Squamous Epith Cells 0-2 Urine Bacteria None Seen Hyaline Casts 0-2 06/25/24 06/25/24 04:24 07:38 MCV MCH MCHC RDW Plt Count MPV Immature Gran % (Auto) Neut % (Auto) Lymph % (Auto) [place] % (Auto) Eos % (Auto) Baso % (Auto) Lymph # (Auto) [place] # (Auto) Eos # (Auto) Baso # (Auto) Abs Immat Gran (auto) Absolute Neuts (auto) Absolute Nucleated RBC Nucleated RBC % (auto) Anion Gap 12 Estim Creat Clear Calc 47.1 Estimated GFR 59 POC Glucose 125 H Random Glucose 143 H Calcium 9.9 Total Bilirubin Direct Bilirubin AST ALT Alkaline Phosphatase Troponin I High Sens Total Protein Albumin Lipase Urine Color Urine Appearance Urine pH Ur Specific [place] Urine Protein Urine Glucose (UA) Urine Ketones Urine Blood Urine Nitrite Ur Leukocyte Esterase Urine RBC Urine WBC Ur Squamous Epith Cells Urine Bacteria Hyaline Casts <Nickie Anali, PA-C - Last Filed: 06/25/24 09:54> Procedures Date of Service Date of Service: 06/25/24 <Nickie Briones PA-C - Last Filed: 06/25/24 09:54> 06/25/24 <Jose Bonilla MD - Last Filed: 06/25/24 10:15> Progress Note: A&P Assessment and plan (1) Calculus of cystic duct: Status: Acute <Nickie Briones PA-C - Last Filed: 06/25/24 09:54> Assessment and Plan: Feels better than yesterday but still having pain Abdomen soft and benign Await MRCP Looks well overall Seen and examined independently <Jose Bonilla MD - Last Filed: 06/25/24 10:15> Assessment and Plan: Patient is s/p lap attempted converted to open cholecystectomy in 2004 at [facility] by Dr. Alvarado. Patient had large RUQ abdominal abscess with disintegration of the gallbladder without identifiable gallbladder wall or cystic duct at that time. He reports no similar episodes of pain following his cholecystectomy. His abdomen is benign with mild tenderness and he feels improved this morning. At this point recommend MRCP to further assess and define anatomy. If he has continued RUQ/epigastric pain and we are unable to advance his diet, based on his prior surgical history ERCP may be the best option to remove the cystic duct stones if the GI providers are able to do this. Surgical approach would be technically challenging given the prior rupturing of his gallbladder. <Nickie Briones PA-C - Last Filed: 06/25/24 09:54> Time Spent With Patient Time: Total time managing care of this patient today ____ minutes. <Nickie Briones PA-C - Last Filed: 06/25/24 09:54> Quality Stroke Does the patient have a stroke diagnosis?: No <Nickie Briones PA-C - Last Filed: 06/25/24 09:54> VTE Prior VTE?: No <JEN Ryan Last Filed: 06/25/24 09:54> VTE Risk Level:: Medical - moderate - high <JEN Ryan Last Filed: 06/25/24 09:54> VTE Device Contraindication: N/A - Device Ordered <Nickie Briones PA-C - Last Filed: 06/25/24 09:54> VTE Drug Contraindication: Treatment Not Indicated <Nickie Briones PA-C - Last Filed: 06/25/24 09:54>
[2024-06-25] MEDS: Finasteride 5 MG TABLET PO (11:47)
[2024-06-25] MEDS: Clopidogrel Bisulfate 75 MG TABLET PO (11:47)
--- NOTE | 2024-06-25 11:51 | MHC.CM.PN ---
PT LIVES WITH SON IS INDEPEDENT HAD NO SERVIES ,HAS OWN RIDE HOME DC PLAN HOME NO SERVIES
--- NOTE | 2024-06-25 12:19 | PC.NURSE ---
Pt off unit for MRI.
[2024-06-25 13:38] LABS: Glucose, Whole Blood 108 mg/dL (60-115)
--- NOTE | 2024-06-25 15:08 | P.PNIM_ITS ---
Subjective Subjective Date of Service: 06/25/24 Interval History: f/u on abdominal pain, choledocholithiasis, obstructive uropathy reporting less pain Physical Exam 2 Vital Signs: Vital Signs: Last Vital Signs Temp 98.2 F 06/25/24 14:31 Pulse 58 06/25/24 14:31 Resp 15 06/25/24 14:31 BP 158/69 H 06/25/24 14:31 Pulse Ox 97 06/25/24 14:31 O2 Del Method Room Air 06/25/24 14:31 BMI result Body Mass Index 25.8 Const: Other: General: AO X 3, no acute distress Resp: CTA bilateral CVS: S1,S2,RRR GI: +BS, NT, no distention Skin: No rash Neuro: motor grossly intact Psych: appropriate affect Objective Data Active Medications Acetaminophen (Acetaminophen 325 Mg Tablet) 650 mg PO Q6H PRN PRN Reason: Pain, Mild (Pain Scale 1-3), fever or headache Last Admin: 06/24/24 21:56 Dose: 650 mg Documented By: SOHAN Atorvastatin Calcium (Atorvastatin Calcium 40 Mg Tablet) 40 mg PO MOTH@1800 [facility] Calcium Carbonate (Calcium Carbonate 750 Mg Tab.Chew) 750 mg PO Q4H PRN PRN Reason: Heartburn Clopidogrel Bisulfate (Clopidogrel Bisulfate 75 Mg Tablet) 75 mg PO DAILY [facility] Last Admin: 06/25/24 11:47 Dose: 75 mg Documented By: JOYCE Finasteride (Finasteride 5 Mg Tablet) 5 mg PO DAILY [facility] Last Admin: 06/25/24 11:47 Dose: 5 mg Documented By: JOYCE Glucose (Glucose Gel 15 Gm Gel..Gram.) 15 gm PO Q15M PRN; Protocol PRN Reason: per Hypoglycemia Standing Ord. Dextrose/Sodium Chloride (D5ns) 1,000 mls @ 80 mls/hr IVCONT .[id number] [facility] Last Admin: 06/25/24 06:13 Dose: 80 mls/hr Documented By: EDER Dextrose (D10) 250 mls @ 750 mls/hr IV Q15M PRN; Protocol PRN Reason: per Hypoglycemia Standing Ord. Insulin Human Lispro (Insulin Lispro 100 Unit/Ml 3 Ml Vial) 0 unit SUBCUT QIDACHS [facility]; Protocol Last Admin: 06/25/24 12:23 Dose: Not Given Documented By: JOYCE Non-Admin Reason: Off unit: MRI Magnesium Hydroxide (Milk Of Magnesia 30 Ml Oral.Susp) 30 ml PO DAILY PRN PRN Reason: Constipation Melatonin (Melatonin 3 Mg Tablet) 6 mg PO BEDTIME PRN PRN Reason: Insomnia Multivitamins/Vitamin C (Multivitamin Tablet) 1 tab PO DAILY@1200 [facility] Last Admin: 06/25/24 12:24 Dose: Not Given Documented By: JOYCE Non-Admin Reason: Off unit: MRI Non-Formulary Medication (Cyclosporine [Restasis]) 1 drop EYE-BOTH Q12H [facility] Pantoprazole Sodium (Pantoprazole Sodium 20 Mg Tablet.Dr) 40 mg PO DAILY@0630 [facility] Last Admin: 06/25/24 07:07 Dose: 40 mg Documented By: JOYCE Sodium Chloride (0.9 % Sodium Chloride Flush 3 Ml Syringe) 3 ml IVFLUSH QSHIFT [facility] Last Admin: 06/25/24 08:00 Dose: Not Given Documented By: JOYCE Non-Admin Reason: IV Running Tamsulosin HCl (Tamsulosin Hcl 0.4 Mg Capsule) 0.4 mg PO BEDTIME [facility] Last Admin: 06/24/24 21:56 Dose: 0.4 mg Documented By: SOHAN Labs 06/24/24 12:53 06/25/24 04:24 Labs: Laboratory Results - last 24 hr 06/24/24 06/25/24 06/25/24 21:08 04:24 07:38 Anion Gap 12 Estim Creat Clear Calc 47.1 Estimated GFR 59 POC Glucose 125 H 125 H Random Glucose 143 H Calcium 9.9 06/25/24 13:33 Anion Gap Estim Creat Clear Calc Estimated GFR POC Glucose 108 Random Glucose Calcium Assessment and Plan (1) Bladder outlet obstruction: Status: Acute (2) Bilateral hydronephrosis: Status: Acute Plan 83/m with dm 2, htn, s/p ccy here with abdominal pain cystic duct stone, urinary retention with bilateral hydronephrosis. Abd pain , Cystic duct stone on CT, -MRCP done result pending -GI, surgery following -advance to clear diet Urinary retention Bilateral hydronephrosis -Loza in -continue flomax and finesteride -urology consult ESTEPHANIA d/t obstructive uropathy,slightly better -loza -ivf Hyperkalemia d/t estephania and lisinopril, resolved -hold lisinopril -given calcium gluconate, insulin and glucose -repeat tommorrow GERD -PPI DM -hold metformin -SSI -diabetic diet HLD -statin HTN -resume norvasc, hold lisinopril d/t hyperkalemia PAD -Plavix, ASA, statin Full code DVT prophylaxis, device in case surgery need for inpt: management of ESTEPHANIA, hyperkalemia hydronephrosis, choledocholithias Quality Stroke Does the patient have a stroke diagnosis?: No VTE Prior VTE?: No VTE Risk Level:: Medical - moderate - high VTE Device Contraindication: N/A - Device Ordered VTE Drug Contraindication: Treatment Not Indicated
[2024-06-25 16:52] LABS: Glucose, Whole Blood 84 mg/dL (60-115)
[2024-06-25 19:42] LABS: Glucose, Whole Blood 135 mg/dL (60-115)
[2024-06-25] MEDS: Tamsulosin HCL 0.4 MG CAPSULE PO (20:25)
[2024-06-26 04:00] VITALS: BP 169/79; PULSE 75; RESP 16; TEMP 36.3; O2SAT 93
[2024-06-26] MEDS: Pantoprazole Sodium 20 MG TABLET.DR 40 MG PO (05:52)
[2024-06-26 07:08] VITALS: BP 141/72; PULSE 70; RESP 18; TEMP 37.7; O2SAT 97
[2024-06-26 07:15] LABS: Glucose, Whole Blood 141 mg/dL (60-115)
--- NOTE | 2024-06-26 08:37 | HO.PM.IMPN ---
Subjective Subjective Date of Service: 06/26/24 Interval History: f/u on abdominal pain, choledocholithiasis, obstructive uropathy has no pain, tolerating liquid diet Physical Exam Vital Signs: Vital Signs: Last Vital Signs Temp 99.8 F 06/26/24 07:08 Pulse 70 06/26/24 07:08 Resp 18 06/26/24 07:08 BP 141/72 H 06/26/24 07:08 Pulse Ox 97 06/26/24 07:08 O2 Del Method Room Air 06/26/24 07:08 BMI result Body Mass Index 24.5 Const: Other: General: AO X 3, no acute distress Resp: CTA bilateral CVS: S1,S2,RRR GI: +BS, NT, no distention Skin: No rash Neuro: motor grossly intact Psych: appropriate affect Objective Data Active Medications Acetaminophen (Acetaminophen 325 Mg Tablet) 650 mg PO Q6H PRN PRN Reason: Pain, Mild (Pain Scale 1-3), fever or headache Last Admin: 06/24/24 21:56 Dose: 650 mg Documented By: SOHAN Atorvastatin Calcium (Atorvastatin Calcium 40 Mg Tablet) 40 mg PO MOTH@1800 [facility] Calcium Carbonate (Calcium Carbonate 750 Mg Tab.Chew) 750 mg PO Q4H PRN PRN Reason: Heartburn Clopidogrel Bisulfate (Clopidogrel Bisulfate 75 Mg Tablet) 75 mg PO DAILY [facility] Last Admin: 06/25/24 11:47 Dose: 75 mg Documented By: JOYCE Finasteride (Finasteride 5 Mg Tablet) 5 mg PO DAILY [facility] Last Admin: 06/25/24 11:47 Dose: 5 mg Documented By: JOYCE Glucose (Glucose Gel 15 Gm Gel..Gram.) 15 gm PO Q15M PRN; Protocol PRN Reason: per Hypoglycemia Standing Ord. Dextrose/Sodium Chloride (D5ns) 1,000 mls @ 80 mls/hr IVCONT .[id number] [facility] Last Admin: 06/26/24 05:52 Dose: Not Given Documented By: PRINCE Non-Admin Reason: IV Running Dextrose (D10) 250 mls @ 750 mls/hr IV Q15M PRN; Protocol PRN Reason: per Hypoglycemia Standing Ord. Insulin Human Lispro (Insulin Lispro 100 Unit/Ml 3 Ml Vial) 0 unit SUBCUT QIDACHS [facility]; Protocol Last Admin: 06/26/24 07:18 Dose: Not Given Documented By: COTEMA Non-Admin Reason: No Insulin Coverage Magnesium Hydroxide (Milk Of Magnesia 30 Ml Oral.Susp) 30 ml PO DAILY PRN PRN Reason: Constipation Melatonin (Melatonin 3 Mg Tablet) 6 mg PO BEDTIME PRN PRN Reason: Insomnia Multivitamins/Vitamin C (Multivitamin Tablet) 1 tab PO DAILY@1200 [facility] Last Admin: 06/25/24 12:24 Dose: Not Given Documented By: JOYCE Non-Admin Reason: Off unit: MRI Non-Formulary Medication (Cyclosporine [Restasis]) 1 drop EYE-BOTH Q12H [facility] Pantoprazole Sodium (Pantoprazole Sodium 20 Mg Tablet.Dr) 40 mg PO DAILY@0630 [facility] Last Admin: 06/26/24 05:52 Dose: 40 mg Documented By: PRINCE Sodium Chloride (0.9 % Sodium Chloride Flush 3 Ml Syringe) 3 ml IVFLUSH QSHIFT [facility] Last Admin: 06/26/24 07:20 Dose: Not Given Documented By: COTCNONOR Non-Admin Reason: IV Running Tamsulosin HCl (Tamsulosin Hcl 0.4 Mg Capsule) 0.4 mg PO BEDTIME [facility] Last Admin: 06/25/24 20:25 Dose: 0.4 mg Documented By: PRINCE Labs 06/24/24 12:53 06/25/24 04:24 Labs: Laboratory Results - last 24 hr 06/25/24 06/25/24 06/25/24 13:33 16:42 19:38 POC Glucose 108 84 135 H 06/26/24 07:10 POC Glucose 141 H Assessment and Plan (1) Bladder outlet obstruction: Status: Acute (2) Bilateral hydronephrosis: Status: Acute Plan 83/m with dm 2, htn, s/p ccy here with abdominal pain cystic duct stone, urinary retention with bilateral hydronephrosis. Abd pain , Cystic duct stone on CT, -MRCP result pending -GI and surgery following -advance diet Urinary retention Bilateral hydronephrosis -Loza in -continue flomax and finesteride -urology consult pending ESTEPHANIA d/t obstructive uropathy,slightly better -loza -ivf -follow bmp Hyperkalemia d/t estephania and lisinopril, resolved -hold lisinopril GERD -PPI DM -hold metformin -SSI -diabetic diet HLD -statin HTN -resume norvasc, hold lisinopril d/t hyperkalemia PAD -Plavix, ASA, statin Full code DVT prophylaxis, device in case surgery, also has some blood in loza now need for inpt: management of ESTEPHANIA, hyperkalemia hydronephrosis, choledocholithias Quality Stroke Does the patient have a stroke diagnosis?: No VTE Prior VTE?: No VTE Risk Level:: Medical - moderate - high VTE Device Contraindication: N/A - Device Ordered VTE Drug Contraindication: Treatment Not Indicated
[2024-06-26] MEDS: Finasteride 5 MG TABLET PO (08:45)
[2024-06-26] MEDS: Clopidogrel Bisulfate 75 MG TABLET PO (08:45)
[2024-06-26 09:22] LABS: Alanine Aminotransferase 9 U/L (0-40); Albumin Level 3.4 g/dL (3.5-5.0); Alkaline Phosphatase 74 U/L (39-117); Anion Gap 12 (12-20); Aspartate Amino Transferase 12 U/L (5-37); Bilirubin Direct 0.3 mg/dL (0.0-0.5); Blood Urea Nitrogen 15 mg/dL (9-16); Calcium 9.1 mg/dL (8.4-10.2); Carbon Dioxide 26 mmol/L (22-29); Chloride 105 mmol/L (96-108); Creatinine Clr Calc Pharmacy 42.4; Estimated Glomerular Filt Rate 52; Glucose Random 227 mg/dL (60-115); Potassium 4.7 mmol/L (3.3-5.1); Sodium 138 mmol/L (135-145)
[2024-06-26 11:09] LABS: Glucose, Whole Blood 121 mg/dL (60-115)
[2024-06-26] MEDS: Multivitamin TABLET 1 TAB PO (11:49)
--- NOTE | 2024-06-26 14:04 | PM.PNGS ---
Subjective Subjective Date of Service: 06/26/24 Interval history: Much better Denies abdominal pain Asking for food Physical Exam Vital Signs: Vital Signs: Last Vital Signs Temp 99.8 F 06/26/24 07:08 Pulse 70 06/26/24 07:08 Resp 18 06/26/24 07:08 BP 141/72 H 06/26/24 07:08 Pulse Ox 97 06/26/24 07:08 O2 Del Method Room Air 06/26/24 07:08 BMI result Body Mass Index 24.5 Const: Other: Looks well General: comfortable and no acute distress Resp: Effort & Inspection: normal respiratory effort Cardio: Rate: regular rate GI: Other: No Soriano's sign Palpation (GI): Soft to palpation, not firm, nontender and no guarding Objective Data Active Medications Acetaminophen (Acetaminophen 325 Mg Tablet) 650 mg PO Q6H PRN PRN Reason: Pain, Mild (Pain Scale 1-3), fever or headache Last Admin: 06/24/24 21:56 Dose: 650 mg Documented By: SOHAN Atorvastatin Calcium (Atorvastatin Calcium 40 Mg Tablet) 40 mg PO MOTH@1800 [facility] Calcium Carbonate (Calcium Carbonate 750 Mg Tab.Chew) 750 mg PO Q4H PRN PRN Reason: Heartburn Clopidogrel Bisulfate (Clopidogrel Bisulfate 75 Mg Tablet) 75 mg PO DAILY [facility] Last Admin: 06/26/24 08:45 Dose: 75 mg Documented By: JACKIE Finasteride (Finasteride 5 Mg Tablet) 5 mg PO DAILY [facility] Last Admin: 06/26/24 08:45 Dose: 5 mg Documented By: JACKIE Glucose (Glucose Gel 15 Gm Gel..Gram.) 15 gm PO Q15M PRN; Protocol PRN Reason: per Hypoglycemia Standing Ord. Dextrose (D10) 250 mls @ 750 mls/hr IV Q15M PRN; Protocol PRN Reason: per Hypoglycemia Standing Ord. Insulin Human Lispro (Insulin Lispro 100 Unit/Ml 3 Ml Vial) 0 unit SUBCUT QIDACHS [facility]; Protocol Last Admin: 06/26/24 11:11 Dose: Not Given Documented By: JACKIE Non-Admin Reason: No Insulin Coverage Magnesium Hydroxide (Milk Of Magnesia 30 Ml Oral.Susp) 30 ml PO DAILY PRN PRN Reason: Constipation Melatonin (Melatonin 3 Mg Tablet) 6 mg PO BEDTIME PRN PRN Reason: Insomnia Multivitamins/Vitamin C (Multivitamin Tablet) 1 tab PO DAILY@1200 [facility] Last Admin: 06/26/24 11:49 Dose: 1 tab Documented By: JACKIE Non-Formulary Medication (Cyclosporine [Restasis]) 1 drop EYE-BOTH Q12H [facility] Pantoprazole Sodium (Pantoprazole Sodium 20 Mg Tablet.) 40 mg PO DAILY@0630 [facility] Last Admin: 06/26/24 05:52 Dose: 40 mg Documented By: PRINCE Sodium Chloride (0.9 % Sodium Chloride Flush 3 Ml Syringe) 3 ml IVFLUSH QSHIFT [facility] Last Admin: 06/26/24 07:20 Dose: Not Given Documented By: COTEMA Non-Admin Reason: IV Running Tamsulosin HCl (Tamsulosin Hcl 0.4 Mg Capsule) 0.4 mg PO BEDTIME [facility] Last Admin: 06/25/24 20:25 Dose: 0.4 mg Documented By: PRINCE Labs 06/24/24 12:53 06/26/24 08:55 Labs: Laboratory Results - last 24 hr 06/25/24 06/25/24 06/26/24 16:42 19:38 07:10 Anion Gap Estim Creat Clear Calc Estimated GFR POC Glucose 84 135 H 141 H Random Glucose Calcium Total Bilirubin Direct Bilirubin AST ALT Alkaline Phosphatase Total Protein Albumin 06/26/24 06/26/24 08:55 11:02 Anion Gap 12 Estim Creat Clear Calc 42.4 Estimated GFR 52 POC Glucose 121 H Random Glucose 227 H Calcium 9.1 D Total Bilirubin 1.0 Direct Bilirubin 0.3 AST 12 ALT 9 Alkaline Phosphatase 74 Total Protein 6.0 L Albumin 3.4 L Procedures Date of Service Date of Service: 06/26/24 Progress Note: A&P Assessment and plan (1) Calculus of cystic duct: Status: Acute Assessment and Plan: MRCP does not show any common bile duct stones LFTs normal Not tender No Soriano's sign Denies abdominal pain Review of records show that he may have had a long he had well gallbladder stump in view of difficulty with prior cholecystectomy Currently looks well Has other issues including bladder outlet obstruction Okay to advance diet slowly as tolerated Time Spent With Patient Time: Total time managing care of this patient today ____ minutes. Quality Stroke Does the patient have a stroke diagnosis?: No VTE Prior VTE?: No VTE Risk Level:: Medical - moderate - high VTE Device Contraindication: N/A - Device Ordered VTE Drug Contraindication: Treatment Not Indicated
[2024-06-26 15:00] VITALS: BP 149/72; PULSE 67; RESP 16; TEMP 36.9; O2SAT 98
[2024-06-26 16:05] LABS: Glucose, Whole Blood 114 mg/dL (60-115)
[2024-06-26] MEDS: Atorvastatin Calcium 40 MG TABLET PO (17:08)
[2024-06-26] MEDS: 0.9 % Sodium Chloride Flush 3 ML SYRINGE IVFLUSH ×2 (17:08→19:21)
[2024-06-26 19:05] VITALS: BP 146/70; PULSE 71; RESP 16; TEMP 36.4; O2SAT 97
[2024-06-26] MEDS: Tamsulosin HCL 0.4 MG CAPSULE PO (19:21)
[2024-06-26 20:16] LABS: Glucose, Whole Blood 136 mg/dL (60-115)
[2024-06-26] MEDS: Acetaminophen 325 MG TABLET 650 MG PO (23:13)
[2024-06-27 03:17] VITALS: BP 140/72; PULSE 67; RESP 18; TEMP 36.1; O2SAT 96
[2024-06-27] MEDS: Pantoprazole Sodium 20 MG TABLET.DR 40 MG PO (05:25)
[2024-06-27 07:14] LABS: Glucose, Whole Blood 100 mg/dL (60-115)
[2024-06-27 07:31] VITALS: BP 145/73; PULSE 63; RESP 16; TEMP 36.5; O2SAT 93
--- NOTE | 2024-06-27 09:03 | P.PNGS_ITS ---
Subjective Subjective Date of Service: 06/27/24 Interval history: Tolerating diet Denies abdominal pain Has [place] in place Feels well Physical Exam 2 Vital Signs: Vital Signs: Last Vital Signs Temp 97.7 F 06/27/24 07:31 Pulse 63 06/27/24 07:31 Resp 16 06/27/24 07:31 BP 145/73 H 06/27/24 07:31 Pulse Ox 93 06/27/24 07:31 O2 Del Method Room Air 06/27/24 07:31 BMI result Body Mass Index 24.5 Const: General: comfortable and no acute distress Cardio: Rate: regular rate GI: Other: No Soriano's sign Palpation (GI): Soft to palpation, not firm, nontender and no guarding Objective Data Active Medications Acetaminophen (Acetaminophen 325 Mg Tablet) 650 mg PO Q6H PRN PRN Reason: Pain, Mild (Pain Scale 1-3), fever or headache Last Admin: 06/26/24 23:13 Dose: 650 mg Documented By: ANTOIC Atorvastatin Calcium (Atorvastatin Calcium 40 Mg Tablet) 40 mg PO MOTH@1800 [facility] Last Admin: 06/26/24 17:08 Dose: 40 mg Documented By: COTEMA Calcium Carbonate (Calcium Carbonate 750 Mg Tab.Chew) 750 mg PO Q4H PRN PRN Reason: Heartburn Clopidogrel Bisulfate (Clopidogrel Bisulfate 75 Mg Tablet) 75 mg PO DAILY [facility] Last Admin: 06/26/24 08:45 Dose: 75 mg Documented By: COTEMA Finasteride (Finasteride 5 Mg Tablet) 5 mg PO DAILY [facility] Last Admin: 06/26/24 08:45 Dose: 5 mg Documented By: JACKIE Glucose (Glucose Gel 15 Gm Gel..Gram.) 15 gm PO Q15M PRN; Protocol PRN Reason: per Hypoglycemia Standing Ord. Dextrose (D10) 250 mls @ 750 mls/hr IV Q15M PRN; Protocol PRN Reason: per Hypoglycemia Standing Ord. Insulin Human Lispro (Insulin Lispro 100 Unit/Ml 3 Ml Vial) 0 unit SUBCUT QIDACHS [facility]; Protocol Last Admin: 06/27/24 08:51 Dose: Not Given Documented By: BULMARO Non-Admin Reason: No Insulin Coverage Magnesium Hydroxide (Milk Of Magnesia 30 Ml Oral.Susp) 30 ml PO DAILY PRN PRN Reason: Constipation Melatonin (Melatonin 3 Mg Tablet) 6 mg PO BEDTIME PRN PRN Reason: Insomnia Multivitamins/Vitamin C (Multivitamin Tablet) 1 tab PO DAILY@1200 [facility] Last Admin: 06/26/24 11:49 Dose: 1 tab Documented By: JACKIE Non-Formulary Medication (Cyclosporine [Restasis]) 1 drop EYE-BOTH Q12H [facility] Pantoprazole Sodium (Pantoprazole Sodium 20 Mg Tablet.) 40 mg PO DAILY@0630 [facility] Last Admin: 06/27/24 05:25 Dose: 40 mg Documented By: ANTOIC Sodium Chloride (0.9 % Sodium Chloride Flush 3 Ml Syringe) 3 ml IVFLUSH QSHIFT [facility] Last Admin: 06/26/24 19:21 Dose: 3 ml Documented By: SUSANNAH Tamsulosin HCl (Tamsulosin Hcl 0.4 Mg Capsule) 0.4 mg PO BEDTIME [facility] Last Admin: 06/26/24 19:21 Dose: 0.4 mg Documented By: SUSANNAH Labs 06/24/24 12:53 06/26/24 08:55 Labs: Laboratory Results - last 24 hr 06/26/24 06/26/24 06/26/24 08:55 11:02 16:00 Anion Gap 12 Estim Creat Clear Calc 42.4 Estimated GFR 52 POC Glucose 121 H 114 Random Glucose 227 H Calcium 9.1 D Total Bilirubin 1.0 Direct Bilirubin 0.3 AST 12 ALT 9 Alkaline Phosphatase 74 Total Protein 6.0 L Albumin 3.4 L 06/26/24 06/27/24 20:10 07:07 Anion Gap Estim Creat Clear Calc Estimated GFR POC Glucose 136 H 100 Random Glucose Calcium Total Bilirubin Direct Bilirubin AST ALT Alkaline Phosphatase Total Protein Albumin Laboratory Results WBC 10.0 X10*3/uL (4.8-10.8) 06/24/24 12:53 RBC 3.88 X10*6/uL (4.60-5.80) L 06/24/24 12:53 Hgb 13.0 g/dl (14.0-18.0) L 06/24/24 12:53 Hct 37.9 % (42.0-52.0) L 06/24/24 12:53 MCV 97.7 fL (80.0-98.0) 06/24/24 12:53 MCH 33.5 pg (27.0-33.0) H 06/24/24 12:53 MCHC 34.3 g/dl (31.0-36.0) 06/24/24 12:53 RDW 12.4 % (11.0-16.0) 06/24/24 12:53 Plt Count 236 X10*3/uL (160-400) 06/24/24 12:53 MPV 10.3 fL (9.4-12.4) 06/24/24 12:53 Immature Gran % (Auto) 0.3 % (0.0-0.4) 06/24/24 12:53 Neut % (Auto) 67.4 % (45-73) 06/24/24 12:53 Lymph % (Auto) 21.9 % (20-40) 06/24/24 12:53 [place] % (Auto) 9.7 % (2-11) 06/24/24 12:53 Eos % (Auto) 0.6 % (0-4) 06/24/24 12:53 Baso % (Auto) 0.1 % (0-2) 06/24/24 12:53 Lymph # (Auto) 2.2 X10*3/uL (1.2-4.9) 06/24/24 12:53 [place] # (Auto) 1.0 X10*3/uL (0.1-1.2) 06/24/24 12:53 Eos # (Auto) 0.1 X10*3/uL (0.0-0.4) 06/24/24 12:53 Baso # (Auto) 0.0 X10*3/uL (0.0-0.2) 06/24/24 12:53 Abs Immat Gran (auto) 0.03 X10*3/uL (0.00-0.03) 06/24/24 12:53 Absolute Neuts (auto) 6.7 x10*3/uL (2.0-8.3) 06/24/24 12:53 Absolute Nucleated RBC 0.000 X10*3/uL (0.0-0.012) 06/24/24 12:53 Nucleated RBC % (auto) 0.0 /100WBC (0.0-0.2) 06/24/24 12:53 Sodium 138 mmol/L (135-145) 06/26/24 08:55 Potassium 4.7 mmol/L (3.3-5.1) 06/26/24 08:55 Chloride 105 mmol/L (96-108) 06/26/24 08:55 Carbon Dioxide 26 mmol/L (22-29) 06/26/24 08:55 Anion Gap 12 (12-20) 06/26/24 08:55 BUN 15 mg/dL (9-16) 06/26/24 08:55 Creatinine 1.32 mg/dL (0.5-1.4) 06/26/24 08:55 Estim Creat Clear Calc 42.4 06/26/24 08:55 Estimated GFR 52 06/26/24 08:55 POC Glucose 100 mg/dL (60-115) 06/27/24 07:07 Random Glucose 227 mg/dL (60-115) H 06/26/24 08:55 Calcium 9.1 mg/dL (8.4-10.2) D 06/26/24 08:55 Total Bilirubin 1.0 mg/dL (0.0-1.0) 06/26/24 08:55 Direct Bilirubin 0.3 mg/dL (0.0-0.5) 06/26/24 08:55 AST 12 U/L (5-37) 06/26/24 08:55 ALT 9 U/L (0-40) 06/26/24 08:55 Alkaline Phosphatase 74 U/L (39-117) 06/26/24 08:55 Troponin I High Sens 2.8 ng/L (<3.5-35.0) 06/24/24 12:53 Total Protein 6.0 g/dL (6.5-8.0) L 06/26/24 08:55 Albumin 3.4 g/dL (3.5-5.0) L 06/26/24 08:55 Lipase 23 U/L (8-78) 06/24/24 12:53 Urine Color Yellow 06/24/24 14:19 Urine Appearance Clear 06/24/24 14:19 Urine pH 6.0 (5.0-9.0) 06/24/24 14:19 Ur Specific [place] 1.015 (1.005-1.025) 06/24/24 14:19 Urine Protein 30 (1+) mg/dL (Neg-Trace) H 06/24/24 14:19 Urine Glucose (UA) Negative mg/dL (Negative) 06/24/24 14:19 Urine Ketones Negative mg/dL (Negative) 06/24/24 14:19 Urine Blood Moderate (2+) (Negative) H 06/24/24 14:19 Urine Nitrite Negative (Negative) 06/24/24 14:19 Ur Leukocyte Esterase Negative (Negative) 06/24/24 14:19 Urine RBC >20 /HPF (0-2) H 06/24/24 14:19 Urine WBC 0-5 /HPF (0-5) 06/24/24 14:19 Ur Squamous Epith Cells 0-2 /HPF (0-2) 06/24/24 14:19 Urine Bacteria None Seen (None Seen) 06/24/24 14:19 Hyaline Casts 0-2 /LPF (0-2) 06/24/24 14:19 Impressions Abdomen/Pelvis CT 06/24/24 12:41 IMPRESSION: 1. There is a growing stone/stones seen within the remnant cystic duct. If the patient has right upper quadrant pain, this can be a contributory cause. MRCP may be helpful for further evaluation prior to consideration of stumpectomy. 2. Marked bilateral hydronephrosis and dilatation of the ureters down to the level of the bladder. The bladder is markedly distended. The prostate is moderately to markedly enlarged. Findings are suggestive of bladder outlet obstruction. 3. Incidental note made of mild cylindrical bronchiectasis at the lung bases, colonic diverticulosis without diverticulitis and marked degenerative changes in the spine. Fleischner guidelines were followed. Electronically signed by: Rivas Sanchez MD 06/24/2024 03:56 PM EDT RP Chest X-Ray 06/24/24 12:41 IMPRESSION: Right basilar atelectasis. Electronically signed by: Hitesh Maldonado MD 06/24/2024 02:45 PM EDT Cholangiopancreatography MRI 06/25/24 12:30 IMPRESSION: Status post cholecystectomy. T2 hyperintense cystic structure in the gallbladder fossa with filling defects likely suggestive of stones within the remnant cystic duct, similar to prior CT. The MRCP images are slightly degraded due to motion artifact. Mild dilatation of the intrahepatic bile ducts. The common bile duct is normal in caliber. No definite filling defects along the course of the common bile duct versus choledocholithiasis. Colonic diverticulosis. Electronically signed by: Rip Morgan MD 06/26/2024 10:21 AM EDT Procedures Date of Service Date of Service: 06/27/24 Progress Note: A&P Assessment and plan (1) Calculus of cystic duct: Status: Acute Assessment and Plan: No abdominal pain No CBD obstruction on MRCP Has along gallbladder remnant from previous open cholecystectomy in 2004 No tenderness LFTs normal Has other medical issues including bladder outlet obstruction No urgent surgical intervention at this time Time Spent With Patient Time: Total time managing care of this patient today ____ minutes. Quality Stroke Does the patient have a stroke diagnosis?: No VTE Prior VTE?: No VTE Risk Level:: Medical - moderate - high VTE Device Contraindication: N/A - Device Ordered VTE Drug Contraindication: Treatment Not Indicated
[2024-06-27 09:05] LABS: Anion Gap 12 (12-20); Blood Urea Nitrogen 15 mg/dL (9-16); Calcium 9.3 mg/dL (8.4-10.2); Carbon Dioxide 23 mmol/L (22-29); Chloride 107 mmol/L (96-108); Creatinine Clr Calc Pharmacy 47.5; Estimated Glomerular Filt Rate 59; Glucose Random 115 mg/dL (60-115); Potassium 4.1 mmol/L (3.3-5.1); Sodium 138 mmol/L (135-145)
--- NOTE | 2024-06-27 09:07 | P.PNIM_ITS ---
Subjective Subjective Date of Service: 06/27/24 Interval History: f/u on abdominal pain, choledocholithiasis, obstructive uropathy has no pain, tolerating liquid diet. Renal function Physical Exam 2 Vital Signs: Vital Signs: Last Vital Signs Temp 97.7 F 06/27/24 07:31 Pulse 63 06/27/24 07:31 Resp 16 06/27/24 07:31 BP 145/73 H 06/27/24 07:31 Pulse Ox 93 06/27/24 07:31 O2 Del Method Room Air 06/27/24 07:31 BMI result Body Mass Index 24.5 Const: Other: General: AO X 3, no acute distress Resp: CTA bilateral CVS: S1,S2,RRR GI: +BS, NT, no distention Skin: No rash Neuro: motor grossly intact Psych: appropriate affect Objective Data Active Medications Acetaminophen (Acetaminophen 325 Mg Tablet) 650 mg PO Q6H PRN PRN Reason: Pain, Mild (Pain Scale 1-3), fever or headache Last Admin: 06/26/24 23:13 Dose: 650 mg Documented By: ANTOIC Atorvastatin Calcium (Atorvastatin Calcium 40 Mg Tablet) 40 mg PO MOTH@1800 [facility] Last Admin: 06/26/24 17:08 Dose: 40 mg Documented By: COTEMA Calcium Carbonate (Calcium Carbonate 750 Mg Tab.Chew) 750 mg PO Q4H PRN PRN Reason: Heartburn Clopidogrel Bisulfate (Clopidogrel Bisulfate 75 Mg Tablet) 75 mg PO DAILY [facility] Last Admin: 06/26/24 08:45 Dose: 75 mg Documented By: JACKIE Finasteride (Finasteride 5 Mg Tablet) 5 mg PO DAILY [facility] Last Admin: 06/26/24 08:45 Dose: 5 mg Documented By: JACKIE Glucose (Glucose Gel 15 Gm Gel..Gram.) 15 gm PO Q15M PRN; Protocol PRN Reason: per Hypoglycemia Standing Ord. Dextrose (D10) 250 mls @ 750 mls/hr IV Q15M PRN; Protocol PRN Reason: per Hypoglycemia Standing Ord. Insulin Human Lispro (Insulin Lispro 100 Unit/Ml 3 Ml Vial) 0 unit SUBCUT QIDACHS [facility]; Protocol Last Admin: 06/27/24 08:51 Dose: Not Given Documented By: BULMARO Non-Admin Reason: No Insulin Coverage Magnesium Hydroxide (Milk Of Magnesia 30 Ml Oral.Susp) 30 ml PO DAILY PRN PRN Reason: Constipation Melatonin (Melatonin 3 Mg Tablet) 6 mg PO BEDTIME PRN PRN Reason: Insomnia Multivitamins/Vitamin C (Multivitamin Tablet) 1 tab PO DAILY@1200 [facility] Last Admin: 06/26/24 11:49 Dose: 1 tab Documented By: COTEMA Non-Formulary Medication (Cyclosporine [Restasis]) 1 drop EYE-BOTH Q12H [facility] Pantoprazole Sodium (Pantoprazole Sodium 20 Mg Tablet.) 40 mg PO DAILY@0630 [facility] Last Admin: 06/27/24 05:25 Dose: 40 mg Documented By: ANTOIC Sodium Chloride (0.9 % Sodium Chloride Flush 3 Ml Syringe) 3 ml IVFLUSH QSHIFT [facility] Last Admin: 06/26/24 19:21 Dose: 3 ml Documented By: SUSANNAH Tamsulosin HCl (Tamsulosin Hcl 0.4 Mg Capsule) 0.4 mg PO BEDTIME [facility] Last Admin: 06/26/24 19:21 Dose: 0.4 mg Documented By: SUSANNAH Labs 06/24/24 12:53 06/27/24 08:15 Labs: Laboratory Results - last 24 hr 06/26/24 06/26/24 06/26/24 08:55 11:02 16:00 Anion Gap 12 Estim Creat Clear Calc 42.4 Estimated GFR 52 POC Glucose 121 H 114 Random Glucose 227 H Calcium 9.1 D Total Bilirubin 1.0 Direct Bilirubin 0.3 AST 12 ALT 9 Alkaline Phosphatase 74 Total Protein 6.0 L Albumin 3.4 L 06/26/24 06/27/24 06/27/24 20:10 07:07 08:15 Anion Gap 12 Estim Creat Clear Calc 47.5 Estimated GFR 59 POC Glucose 136 H 100 Random Glucose 115 Calcium 9.3 Total Bilirubin Direct Bilirubin AST ALT Alkaline Phosphatase Total Protein Albumin Assessment and Plan (1) Bladder outlet obstruction: Status: Acute (2) Bilateral hydronephrosis: Status: Acute Plan 83/m with dm 2, htn, s/p ccy here with abdominal pain cystic duct stone, urinary retention with bilateral hydronephrosis. Abd pain , Cystic duct stone on CT, -MRCP --cystic duct defect, nl CBC cliber, -GI and surgery to advise further -repeat lfts -advance diet Urinary retention Bilateral hydronephrosis -Loza in -continue flomax and finesteride -urology consult pending ESTEPHANIA d/t obstructive uropathy, resolved -loza -ivf -follow bmp HypERkalemia d/t estephania and lisinopril, resolved -stop lisinopril GERD -PPI DM -hold metformin -SSI -diabetic diet HLD -statin HTN -start norvasc 5, stop lisinopril d/t hyperkalemia PAD -Plavix, ASA, statin Full code DVT prophylaxis, device in case surgery, also has some blood in loza now need for inpt: management of ESTEPHANIA, hyperkalemia hydronephrosis, choledocholithias Quality Stroke Does the patient have a stroke diagnosis?: No VTE Prior VTE?: No VTE Risk Level:: Medical - moderate - high VTE Device Contraindication: N/A - Device Ordered VTE Drug Contraindication: Treatment Not Indicated
[2024-06-27 09:24] LABS: Alanine Aminotransferase 10 U/L (0-40); Albumin Level 3.7 g/dL (3.5-5.0); Alkaline Phosphatase 83 U/L (39-117); Aspartate Amino Transferase 16 U/L (5-37); Bilirubin Direct 0.4 mg/dL (0.0-0.5); Bilirubin Total 1.4 mg/dL (0.0-1.0); Total Protein 6.6 g/dL (6.5-8.0)
[2024-06-27 09:58] VITALS: BP 153/77
[2024-06-27] MEDS: amLODIPine Besylate 5 MG TABLET PO (09:58)
[2024-06-27] MEDS: 0.9 % Sodium Chloride Flush 3 ML SYRINGE IVFLUSH ×3 (09:59→20:33)
[2024-06-27] MEDS: Finasteride 5 MG TABLET PO (10:00)
[2024-06-27] MEDS: Clopidogrel Bisulfate 75 MG TABLET PO (10:00)
[2024-06-27 11:07] LABS: Glucose, Whole Blood 220 mg/dL (60-115)
[2024-06-27] MEDS: Insulin Lispro 100 UNIT/ML 3 ML VIAL SUBCUT ×2 (11:52→20:33)
[2024-06-27] MEDS: Multivitamin TABLET 1 TAB PO (12:42)
[2024-06-27] MEDS: Calcium Carbonate 750 MG TAB.CHEW PO ×2 (12:46→22:19)
[2024-06-27 15:30] VITALS: BP 172/79; PULSE 63; RESP 18; TEMP 36.6; O2SAT 100
[2024-06-27 15:56] VITALS: BP 157/73; PULSE 66
--- NOTE | 2024-06-27 16:05 | PC.NURSE ---
Patient and patient sister states patient takes Amlodipine at home,added to med rec and Dr. Howell notified
[2024-06-27 16:22] LABS: Glucose, Whole Blood 71 mg/dL (60-115)
[2024-06-27 19:44] VITALS: BP 177/80; PULSE 66; RESP 17; TEMP 36.5; O2SAT 98
[2024-06-27 20:25] LABS: Glucose, Whole Blood 151 mg/dL (60-115)
[2024-06-27] MEDS: Tamsulosin HCL 0.4 MG CAPSULE PO (20:33)
[2024-06-27] MEDS: Acetaminophen 325 MG TABLET 650 MG PO (22:15)
[2024-06-28 03:15] VITALS: BP 106/53; PULSE 58; RESP 17; TEMP 36.3; O2SAT 97
[2024-06-28 03:30] VITALS: BP 104/62
[2024-06-28] MEDS: Pantoprazole Sodium 20 MG TABLET.DR 40 MG PO (05:26)
[2024-06-28 06:43] VITALS: BP 120/59; PULSE 64; RESP 16; TEMP 36.6; O2SAT 99
[2024-06-28 07:06] LABS: Glucose, Whole Blood 108 mg/dL (60-115)
[2024-06-28] MEDS: Finasteride 5 MG TABLET PO (07:35)
[2024-06-28] MEDS: amLODIPine Besylate 5 MG TABLET PO (07:35)
[2024-06-28] MEDS: 0.9 % Sodium Chloride Flush 3 ML SYRINGE IVFLUSH ×2 (07:35→20:16)
[2024-06-28] MEDS: Clopidogrel Bisulfate 75 MG TABLET PO (07:35)
--- NOTE | 2024-06-28 08:58 | PM.DS ---
DS: Providers Provider Date of Service: 06/29/24 Date of admission: 06/24/24 17:32 Date of discharge: 06/29/24 Primary care physician: Omi Farrar MD Consults: 06/24/24 16:37 Consult to Gastroenterology Routine Consulting Provider: Kamila Long Reason for consultation: growing stone/stones seen within the remnant cystic duct Has provider been notified: Yes 06/24/24 16:58 Consult to General Surgery Routine Consulting Provider: Paola Gama Reason for consultation: cystic duct stone 06/24/24 17:34 Consult to Gastroenterology Routine Consulting Provider: Kamila Long Reason for consultation: choledocholithiasis Has provider been notified: No 06/25/24 08:52 Consult to Urology Routine Consulting Provider: [facility] [place] [facility] Reason for consultation: urinary retention Has provider been notified: No DS: Diagnosis Discharge Diagnosis (1) Bladder outlet obstruction: Status: Acute (2) Bilateral hydronephrosis: Status: Acute DS: Summary Hospital Course Hospital Course: Chief Complaint: Abdominal pain, urinary retention. 83 y/o male with PMH of DM2, PAD, HTN, s/p CCY, BPH here with abdominal pain since 4 am and difficulty voiding, no fever, no n/v, no diarrhea or constipation. CTA of abdomena nd pelvis showed 1. There is a growing stone/stones seen within the remnant cystic duct. If the patient has right upper quadrant pain, this can be a contributory cause. MRCP may be helpful for further evaluation prior to consideration of stumpectomy. 2. Marked bilateral hydronephrosis and dilatation of the ureters down to the level of the bladder. The bladder is markedly distended. The prostate is moderately to markedly enlarged. Findings are suggestive of bladder outlet obstruction. LFTS are normal, no jaundice, a loza was inserted with return of over 1000 cc after voiding about 200cc. Hospital course: He presented with abdominal pain and urinary retention, after voiding 200 cc, bladder scan showed high volume and so a loza cath was inserted with return of [address] scan of abd and pelvis showed bilateral hydronephrosis. He had mild Estephania. He has BPH and is finesteride and Flomax, discused with Dr. Rosales and she recommend keeping loza in place and outpatient voiding trial in the office. Renal function has improved. Abd pain work up with CT showed cystic duct defect, normal CBC, LFTs were normal. Diet was advanced slowly. He was seen by GI and surgery. MRCP confirmed cystic duct deffect and normal CBC diameter. There is no indication for surgery at this time. Diet has been advanced to regular diet which he's tolerating. Urinary retentionwith Bilateral hydronephrosis -continue flomax and finesteride -urology recommends to keep loza and outpatient voiding trial ESTEPHANIA d/t obstructive uropathy, resolved with fley and ivf HypERkalemia d/t estephania, resolved. GERD -PPI DM -can resume metformin -SSI -diabetic diet HLD -statin HTN -start norvasc 5, stop lisinopril d/t hyperkalemia PAD -Plavix, ASA, statin Dispo:home with vna, he declined rehab Time Attestation Discharge Coordination Time (in mins): 40 Quality: Safe Use of Opioids Does Pt have an Active Cancer Diagnosis on the Problem List?: No Quality: Stroke Does the patient have a stroke diagnosis?: No Physical Exam Vital Signs: Vital Signs: Selected Entries 06/29/24 06:50 06/29/24 09:00 Temperature 98.1 F Pulse Rate 58 Blood Pressure 154/67 H Pulse Oximetry 98 Oxygen Delivery Me thod Room Air DS: Data Data Completed and Pending Labs on day of discharge: Laboratory Results - last 24 hr 06/27/24 06/27/24 06/27/24 08:15 11:02 16:08 Sodium 138 Potassium 4.1 Chloride 107 Carbon Dioxide 23 Anion Gap 12 BUN 15 Creatinine 1.18 Estim Creat Clear Calc 47.5 Estimated GFR 59 POC Glucose 220 H 71 Random Glucose 115 Calcium 9.3 Total Bilirubin 1.4 H Direct Bilirubin 0.4 AST 16 ALT 10 Alkaline Phosphatase 83 Total Protein 6.6 Albumin 3.7 06/27/24 06/28/24 20:19 06:43 Sodium Potassium Chloride Carbon Dioxide Anion Gap BUN Creatinine Estim Creat Clear Calc Estimated GFR POC Glucose 151 H 108 Random Glucose Calcium Total Bilirubin Direct Bilirubin AST ALT Alkaline Phosphatase Total Protein Albumin Discharge Plan Discharge Anticipated Discharge Date/Time: 06/29/24 10:29 Patient Disposition: Home Health Service Discharge Diagnosis: Urinary retention, obstructive uropathym, hyperkalemia, cystic duct stone Referrals: Vera Camara MD [Physician] - 1 Week Omi Farrar MD [Primary Care Provider] - 1 Week Discharge Medications: Continued atorvastatin 40 mg tablet 40 mg PO MOTH@1800 cyclosporine [Restasis] 0.05 % Dropperette 1 drp OPHTHALMIC (EYE) Q12H Rx Instructions: instill 1 drop into both eyes clopidogrel 75 mg Tablet 75 mg PO DAILY Qty: 30 0RF tamsulosin 0.4 mg Capsule 0.4 mg PO BEDTIME Qty: 30 0RF finasteride 5 mg Tablet 5 mg PO DAILY Qty: 30 0RF pantoprazole 40 mg tablet,delayed release (DR/EC) 40 mg PO DAILY amlodipine 5 mg Tablet 5 mg PO DAILY multivitamin Tablet 1 tab PO DAILY@1200 metformin 500 mg tablet 500 mg PO BID Discharge Orders: Discharge Order (Routine); Ordered 06/29/24 Ordered By: Macario Howell Diet: Diabetic diet Activity on Discharge: As tolerated Stand Alone Forms: Patient Portal Discharge page Print Language: Tuvaluan Care Plan Goals: recovery from urinary retention and abdominal pain Health Concerns: urinary retention bladder outlet obstruction hyperkalemia obstructive uropathy cystic duct obstruction abdominal pain Plan of Treatment: home with a Loza catheter and to follow up with Dr. Medina for voiding trial in the office. Assessment: See above Patient Instructions: Gallstones (DC), Acute Kidney Injury (DC)
--- NOTE | 2024-06-28 09:12 | P.F2F_ITS ---
Service Date Service Date: 06/29/24 Encounter Date of encounter: 06/29/24 Reasons for Services Signs and symptoms assessed: urinary retention, abdominal pain, Reason for chcf: GI/ assessment and other (loza cath care) Homebound: Leaving the home is medically contraindicated at this time without the asist of a device and/or another person due th the listed conditions above and below. Reason homebound: weakness related to hospital stay Homebound supporting statement: homeboudnd d/t recent hospitalizaation, weakness, now with new loza catheter and needs the assistance of another person Certification: Based on the above findings, I certify that this patient is confined to the home and needs intermittent chcf care, physical therapy and/or speech therapy, or continues to need occupational therapy. The patient is under my care, and I have initiated the establishment of the plan of care. The patient will be followed by a physician who will periodically review the plan of care. Time Spent With Patient Time: Total time managing care of this patient today ____ minutes.
[2024-06-28 11:28] LABS: Glucose, Whole Blood 153 mg/dL (60-115)
[2024-06-28] MEDS: Multivitamin TABLET 1 TAB PO (11:54)
[2024-06-28] MEDS: Insulin Lispro 100 UNIT/ML 3 ML VIAL SUBCUT (11:54)
--- NOTE | 2024-06-28 12:53 | HO.PM.IMPN ---
Subjective Subjective Date of Service: 06/28/24 Interval History: no new issues, tolerating diet. Physical Exam Vital Signs: Vital Signs: Last Vital Signs Temp 98 F 06/28/24 06:43 Pulse 64 06/28/24 06:43 Resp 16 06/28/24 06:43 BP 120/59 L 06/28/24 06:43 Pulse Ox 99 06/28/24 06:43 O2 Del Method Room Air 06/28/24 06:43 BMI result Body Mass Index 24.5 General: AO X 3, no acute distress Resp: CTA bilateral CVS: S1,S2,RRR GI: +BS, NT, no distention Skin: No rash Neuro: motor grossly intact Psych: appropriate affect Objective Data Active Medications Acetaminophen (Acetaminophen 325 Mg Tablet) 650 mg PO Q6H PRN PRN Reason: Pain, Mild (Pain Scale 1-3), fever or headache Last Admin: 06/27/24 22:15 Dose: 650 mg Documented By: MARTY Amlodipine Besylate (Amlodipine Besylate 5 Mg Tablet) 5 mg PO DAILY [facility]; Protocol Last Admin: 06/28/24 07:35 Dose: 5 mg Documented By: JEAN-PIERRE Atorvastatin Calcium (Atorvastatin Calcium 40 Mg Tablet) 40 mg PO MOTH@1800 [facility] Last Admin: 06/26/24 17:08 Dose: 40 mg Documented By: COTEMA Calcium Carbonate (Calcium Carbonate 750 Mg Tab.Chew) 750 mg PO Q4H PRN PRN Reason: Heartburn Last Admin: 06/27/24 22:19 Dose: 750 mg Documented By: MARTY Clopidogrel Bisulfate (Clopidogrel Bisulfate 75 Mg Tablet) 75 mg PO DAILY [facility] Last Admin: 06/28/24 07:35 Dose: 75 mg Documented By: JAEN-PIERRE Finasteride (Finasteride 5 Mg Tablet) 5 mg PO DAILY [facility] Last Admin: 06/28/24 07:35 Dose: 5 mg Documented By: JEAN-PIERRE Glucose (Glucose Gel 15 Gm Gel..Gram.) 15 gm PO Q15M PRN; Protocol PRN Reason: per Hypoglycemia Standing Ord. Dextrose (D10) 250 mls @ 750 mls/hr IV Q15M PRN; Protocol PRN Reason: per Hypoglycemia Standing Ord. Insulin Human Lispro (Insulin Lispro 100 Unit/Ml 3 Ml Vial) 0 unit SUBCUT QIDACHS [facility]; Protocol Last Admin: 06/28/24 11:54 Dose: 2 unit Documented By: JEAN-PIERRE Magnesium Hydroxide (Milk Of Magnesia 30 Ml Oral.Susp) 30 ml PO DAILY PRN PRN Reason: Constipation Melatonin (Melatonin 3 Mg Tablet) 6 mg PO BEDTIME PRN PRN Reason: Insomnia Multivitamins/Vitamin C (Multivitamin Tablet) 1 tab PO DAILY@1200 [facility] Last Admin: 06/28/24 11:54 Dose: 1 tab Documented By: JEAN-PIERRE Non-Formulary Medication (Cyclosporine [Restasis]) 1 drop EYE-BOTH Q12H [facility] Pantoprazole Sodium (Pantoprazole Sodium 20 Mg Tablet.) 40 mg PO DAILY@0630 [facility] Last Admin: 06/28/24 05:26 Dose: 40 mg Documented By: MARTY Sodium Chloride (0.9 % Sodium Chloride Flush 3 Ml Syringe) 3 ml IVFLUSH QSHIFT [facility] Last Admin: 06/28/24 07:35 Dose: 3 ml Documented By: JEAN-PIERRE Tamsulosin HCl (Tamsulosin Hcl 0.4 Mg Capsule) 0.4 mg PO BEDTIME [facility] Last Admin: 06/27/24 20:33 Dose: 0.4 mg Documented By: MARTY Labs 06/24/24 12:53 06/27/24 08:15 Labs: Laboratory Results - last 24 hr 06/27/24 06/27/24 06/28/24 16:08 20:19 06:43 POC Glucose 71 151 H 108 06/28/24 11:24 POC Glucose 153 H Assessment and Plan (1) Bladder outlet obstruction: Status: Acute (2) Bilateral hydronephrosis: Status: Acute Plan 83/m with dm 2, htn, s/p ccy here with abdominal pain cystic duct stone, urinary retention with bilateral hydronephrosis. Abd pain , Cystic duct stone on CT, -MRCP --cystic duct defect, nl CBC cliber, -GI and surgery to advise further -lfts normal -tolerating regular diet Urinary retention Bilateral hydronephrosis -Loza in -continue flomax and finesteride -urology rec loza and outpatient voiding trial ESTEPHANIA d/t obstructive uropathy, resolved -loza -ivf -follow bmp HypERkalemia d/t estephania, resolved GERD -PPI DM -hold metformin, resume at dc -SSI -diabetic diet HLD -statin HTN -continue norvasc PAD -Plavix, ASA, statin Full code DVT prophylaxis, device in case surgery, also has some blood in loza now need for inpt: management of ESTEPHANIA, hyperkalemia hydronephrosis, choledocholithias pt is recommending home vs rehab, he will probably decline rehab plan discussed with pt and daughter at bedside Quality Stroke Does the patient have a stroke diagnosis?: No VTE Prior VTE?: No VTE Risk Level:: Medical - moderate - high VTE Device Contraindication: N/A - Device Ordered VTE Drug Contraindication: Treatment Not Indicated
[2024-06-28 12:57] VITALS: PULSE 83; O2SAT 94
[2024-06-28 15:14] VITALS: BP 135/62; PULSE 68; RESP 16; TEMP 36.9; O2SAT 99
[2024-06-28 16:07] LABS: Glucose, Whole Blood 127 mg/dL (60-115)
[2024-06-28 19:08] VITALS: BP 139/64; PULSE 71; RESP 18; TEMP 36.7; O2SAT 97
[2024-06-28 20:05] LABS: Glucose, Whole Blood 150 mg/dL (60-115)
[2024-06-28] MEDS: Tamsulosin HCL 0.4 MG CAPSULE PO (20:15)
[2024-06-29] MEDS: Acetaminophen 325 MG TABLET 650 MG PO (01:01)
[2024-06-29 03:46] VITALS: BP 147/67; PULSE 64; RESP 18; TEMP 36.7; O2SAT 97
[2024-06-29] MEDS: Pantoprazole Sodium 20 MG TABLET.DR 40 MG PO (06:02)
[2024-06-29 06:50] VITALS: BP 135/68; PULSE 66; RESP 16; TEMP 36.7; O2SAT 98
[2024-06-29 07:08] LABS: Glucose, Whole Blood 130 mg/dL (60-115)
[2024-06-29 09:00] VITALS: BP 154/67; PULSE 58
[2024-06-29] MEDS: Finasteride 5 MG TABLET PO (09:06)
[2024-06-29] MEDS: Clopidogrel Bisulfate 75 MG TABLET PO (09:06)
[2024-06-29] MEDS: amLODIPine Besylate 5 MG TABLET PO (09:06)
[2024-06-29] MEDS: 0.9 % Sodium Chloride Flush 3 ML SYRINGE IVFLUSH (09:06)
[2024-06-29 11:05] LABS: Glucose, Whole Blood 187 mg/dL (60-115)
[2024-06-29] MEDS: Multivitamin TABLET 1 TAB PO (11:15)
[2024-06-29] MEDS: Insulin Lispro 100 UNIT/ML 3 ML VIAL SUBCUT (11:15)
--- NOTE | 2024-06-29 11:27 | MHC.CM.PN ---
PT DCD HOME WITH FAMILY TO BE SEEN JOURDAN BY [facility] DR HERRON SAID JOURDAN WAS OK FOR PT TO BE SEEN
== END 2024-06-29 12:16 | disposition home health service (06) | DRG 445 ==
LOC: HO.ED 17:05 → HO.EDOVER 17:58 → HO.S3 06-25 15:02
PROVIDERS: Admitting Provider Internal Medicine; Emergency Provider Emergency Medicine; PCP Internal Medicine; Visit Provider Internal Medicine
DX: K80.20 Calculus of gallbladder without cholecystitis without obstruction (principal); N13.30 Unspecified hydronephrosis; N13.8 Other obstructive and reflux uropathy; N17.9 Acute kidney failure, unspecified; N40.1 Benign prostatic hyperplasia with lower urinary tract symptoms; E11.40 Type 2 diabetes mellitus with diabetic neuropathy, unspecified; E87.5 Hyperkalemia; I44.0 Atrioventricular block, first degree; K21.9 Gastro-esophageal reflux disease without esophagitis; E78.5 Hyperlipidemia, unspecified; R33.8 Other retention of urine; I10 Essential (primary) hypertension; E11.51 Type 2 diabetes mellitus with diabetic peripheral angiopathy without gangrene; Z87.891 Personal history of nicotine dependence; Z79.02 Long term (current) use of antithrombotics/antiplatelets; Z79.84 Long term (current) use of oral hypoglycemic drugs; Z79.899 Other long term (current) drug therapy
CPT/HCPCS: 36415; 71045; 74177; 74181; 80048; 80053; 80076; 81001; 82248; 82947; 83690; 84484; 85025; 93005; 97162; 99285; C1758; J0613; J7120; Q9967

== ENCOUNTER → 2024-06-24 17:32 | Outpatient (BNV) | payer MEDICARE, SELFPAY | PROVIDERS: Admitting Provider Internal Medicine; Emergency Provider Emergency Medicine; PCP Internal Medicine; Visit Provider Internal Medicine | DX: K80.20 Calculus of gallbladder without cholecystitis without obstruction (principal) | CPT/HCPCS: 99222 ==

== ENCOUNTER → 2024-06-24 17:32 | Outpatient (BNV) | payer MEDICARE, SELFPAY | PROVIDERS: Admitting Provider Internal Medicine; Emergency Provider Emergency Medicine; PCP Internal Medicine; Visit Provider Internal Medicine | DX: N32.0 Bladder-neck obstruction (principal); N13.30 Unspecified hydronephrosis | CPT/HCPCS: 99223; 99232; 99239; G0180 ==

== ENCOUNTER → 2024-06-24 17:32 | Outpatient (BNV) | payer MEDICARE, SELFPAY | PROVIDERS: Admitting Provider Internal Medicine; Emergency Provider Emergency Medicine; PCP Internal Medicine; Visit Provider Surgery | DX: K80.20 Calculus of gallbladder without cholecystitis without obstruction (principal) | CPT/HCPCS: 99222; 99232 ==

== ENCOUNTER 2024-07-07 00:39 | Emergency (ER) | payer MEDICARE, SELFPAY ==
[2024-07-07 00:53] VITALS: BP 136/82; BP 166/75; PULSE 78; PULSE 83; RESP 16; TEMP 36.8; O2SAT 98; BMI 25.1
[2024-07-07] MEDS: Acetaminophen 325 MG TABLET 650 MG PO (03:45)
[2024-07-07 03:48] LABS: MANUAL DIFF FLAG NO
--- NOTE | 2024-07-07 03:52 | PC.NURSE ---
patient currently has indwelling catheter, states that the pain he is experiencing is primarily at the tip of his penis and has been worsening over one week. dried blood noticed at at urethra, states that there has been no blood/foul smelling urine output. penis appears to be swollen at this time. medicated per the MAR w/ tylenol for pain, labs obtained and sent. awaiting ed provider
[2024-07-07 03:57] LABS: Basophils Percent Auto 0.2 % (0-2); Eosinophils Absolute Auto 0.3 X10*3/uL (0.0-0.4); Eosinophils Percent Auto 2.5 % (0-4); Hematocrit 37.1 % (42.0-52.0); Hemoglobin 12.7 g/dl (14.0-18.0); Imm Gran Abs Auto 0.07 X10*3/uL (0.00-0.03); Imm Gran Pct Auto 0.6 % (0.0-0.4); Lymphocytes Absolute Auto 2.8 X10*3/uL (1.2-4.9); Lymphocytes Percent Auto 23.2 % (20-40); Mean Corpuscular HGB Conc 34.2 g/dl (31.0-36.0); Mean Corpuscular Hemoglobin 32.5 pg (27.0-33.0); Mean Corpuscular Volume 94.9 fL (80.0-98.0); Mean Platelet Volume 10.8 fL (9.4-12.4); Monocytes Absolute Auto 1.1 X10*3/uL (0.1-1.2); Monocytes Percent Auto 8.7 % (2-11); Neutrophils Absolute Auto 7.9 x10*3/uL (2.0-8.3); Neutrophils Percent Auto 64.8 % (45-73); Platelet Count 289 X10*3/uL (160-400); Red Blood Count 3.91 X10*6/uL (4.60-5.80); Red Cell Distribution Width 12.3 % (11.0-16.0); White Blood Count 12.2 X10*3/uL (4.8-10.8)
[2024-07-07 03:58] LABS: Appearance Urine Clear; Color Urine Yellow; Glucose Urine UA Negative (Negative); Leukocyte Esterase Urine Negative (Negative); Nitrite Urine Negative (Negative); PH 5.5 (5.0-9.0); Specific Gravity - Urine 1.025 (1.005-1.025); UMIC TRIGGER UACC YES; Urine Blood Negative (Negative); Urine Ketones Negative (Negative); Urine Protein 300 (3+) mg/dL (Neg-Trace)
[2024-07-07 04:03] LABS: Bacteria Urine None Seen (None Seen); Hyaline Casts Urine 0-2 /LPF (0-2); RBC Urine 0-2 /HPF (0-2); Squamous Epithelial Cell Urine 0-2 /HPF (0-2); WBC Urine 0-5 /HPF (0-5)
[2024-07-07 04:07] LABS: Alanine Aminotransferase 13 U/L (0-40); Albumin Level 3.7 g/dL (3.5-5.0); Alkaline Phosphatase 83 U/L (39-117); Anion Gap 14 (12-20); Aspartate Amino Transferase 18 U/L (5-37); Bilirubin Total 0.5 mg/dL (0.0-1.0); Blood Urea Nitrogen 31 mg/dL (9-16); Calcium 9.3 mg/dL (8.4-10.2); Carbon Dioxide 21 mmol/L (22-29); Chloride 109 mmol/L (96-108); Creatinine Clr Calc Pharmacy 50.9; Estimated Glomerular Filt Rate > 60; Glucose Random 130 mg/dL (60-115); Sodium 140 mmol/L (135-145); Total Protein 6.3 g/dL (6.5-8.0)
[2024-07-07 06:12] VITALS: BP 168/74; PULSE 59; RESP 16; TEMP 36.8; O2SAT 97
--- NOTE | 2024-07-07 06:47 | ED.MALEGU ---
HPI - Male Genitourinary General Chief complaint: Urogenital-Male Stated complaint: URINARY SYMPTOMS Time Seen by Provider: 07/07/24 06:37 Source: patient and EMS Mode of arrival: EMS Limitations: no limitations History of Present Illness ED Provider: CARLOS PARRY PA-C HPI Narrative: 83 year old male with pmhx significant for T2DM with diabetic neuropathy, PAD, HTN, HDL, left great toe osteomyelitis presents to the ED today for evaluation of penile pain and swelling x1 week. Patient reports symptoms have been present and progressively worsening since he had loza placed for urinary retention secondary to enlarged prostate on 06/24/24 (1.5 wks ago) . States urine has been draining as normal in loza. Denies retention. Has been taking OTC pain medications without improvement. Denies fever, chills, dysuria, cloudy urine, hematuria, clots in urine. Related Data Home Medications ?Medication ?Instructions ?Recorded ?Confirmed metformin 500 mg tablet 500 mg PO BID 06/30/20 06/24/24 multivitamin 1 tab PO DAILY@1200 06/30/20 06/24/24 atorvastatin 40 mg tablet 40 mg PO MOTH@1800 10/10/22 06/24/24 cyclosporine 0.05 % eye drops in a 1 drp ophthalmic (eye) Q12H 10/10/22 06/24/24 dropperette (Restasis) pantoprazole 40 mg tablet,delayed 40 mg PO DAILY 06/24/24 06/24/24 release amlodipine 5 mg tablet 5 mg PO DAILY 06/27/24 06/27/24 Previous Rx's ?Medication ?Instructions ?Recorded clopidogrel 75 mg tablet 75 mg PO DAILY #30 tabs 10/20/22 finasteride 5 mg tablet 5 mg PO DAILY #30 tabs 10/20/22 tamsulosin 0.4 mg capsule 0.4 mg PO BEDTIME #30 caps 10/20/22 cephalexin 500 mg capsule 500 mg PO QID 7 days #28 caps 07/07/24 mupirocin 2 % topical ointment 1 appl topical TID 14 days #22 07/07/24 grams Allergies Allergy/AdvReac Type Severity Reaction Status Date / Time clindamycin [From CLEOCIN] Allergy Severe BLACK STOOL Verified 07/07/24 00:54 Review of Systems Review of Systems: Constitutional: No fever, chills, fatigue, night sweats, weight changes ENT/Mouth: No ear pain, hearing loss, nasal congestion, sinus pain, rhinorrhea, sore throat Eyes: No eye pain, swelling, redness, vision changes, discharge Cardio: No chest pain, palpitations, ORTEGA, orthopnea, peripheral edema Pulm: No SOB, cough, sputum, wheezing, dyspnea, hemoptysis GI: No nausea, vomiting, hematemesis, abdominal pain, diarrhea, constipation, hematochezia, melena : No irregular bleeding, dysuria, frequency, urgency, hesitancy, hematuria, flank pain, urinary flow changes, urinary incontinence or retention, +penile pain/swelling MSK: No back pain, neck pain, joint pain, myalgias Skin: No lesions, rashes Neuro: No weakness, numbness, paresthesias, LOC, dizziness, headache Psych: No anxiety/panic, depression, SI/HI, AH/VH All other systems reviewed and are negative. [facility] Past Medical History Attestation statement: The following information was validated with the patient. Source: old records reviewed and nursing notes reviewed Medical History 1st degree AV block PAD (peripheral artery disease) Skin ulcer of left great toe Hypertension Type 2 diabetes mellitus Diabetes PSA (psoriatic arthritis) Surgical History History of atherectomy Social History Social History Household Members: Family Household Members Other:: 1 Housing: House Do you presently have visiting nurse or other home services: No Alcohol intake: former Comment: 1 assist with walker Patient Tobacco Use Status: Former Tobacco user Tobacco use type: Cigarette Cigarette Packs Per Day: 0.5 Cigarettes Per Day: 10.0 Years Smoked: 15 e-Cigarette/Vaping Use: Never Used Second Hand Smoke Exposure: No Advance Directives: Yes Advance Directives on File: Yes Advance Directives Date on File: 10/10/22 Do you have a plan to hurt others: No Plan service: No Current occupational status: retired Physical Exam Vital Signs: Vital Signs: Last Vital Signs Temp 98.2 F 07/07/24 06:12 Pulse 59 07/07/24 06:12 Resp 16 07/07/24 06:12 BP 168/74 H 07/07/24 06:12 Pulse Ox 97 07/07/24 06:12 O2 Del Method Room Air 07/07/24 06:12 BMI result Body Mass Index 25.1 hypertensive to 168/74, vitals otherwise wnl. General: Well appearing, in no acute distress. Skin: Warm, dry, intact. No rashes or lesions. Head: Normocephalic, atraumatic. EENT: Hearing is intact b/l. Conjunctiva clear. PERRLA. Moist mucous membranes.? Cardiac: Chest wall symmetric. RRR Lungs: Normal respiratory effort without accessory muscle use Abdomen: Soft, non-tender, non-distended. No rebound tenderness or guarding. Positive BS x4. No CVAT. : uncircumcised penis. glans with noted swelling, erythema. no warmth. noted crusting around the urethral meatus. no active discharge or bleeding. TTP. Loza cath in place draining straw colored urine. Ext: Upper and lower extremities atraumatic, without tenderness, deformity, swelling or erythema Neuro: AOx3. Normal speech. Ambulating with steady gait. Psych: Appropriate mood and affect. Responds appropriately to questions. Course Course Course Narrative: 0739 -- CBC with slight leukocytosis to 12.2 without left shift. Chronic normocytic anemia with H&H stable. Above transfusion threshold. Chemistry without acute electrolyte abnormality requiring intervention. Kidney function appears to be around baseline. Random glucose 138. Normal liver function. Urine without infection or blood. > on my initial evaluation, patient reports improvement in pain with Tylenol. states pain decreased to around 3/10. > patient currently in hallway bed making it difficulty to fully evaluate d/t privacy concerns. discussed with battery charger to obtain room for further evaluation. 0807 -- patient placed in room. sensitive exam performed with Jami Pulliam RN in room to customer support professional. Exam consistent with balanitis with early cellulitis. Plan to treat with keflex and mupirocin. Discussed case with Dr. Da Silva who agrees with treatment. Dose of abx given in ED today. Advised to continue tylenol/ motrin at home for pain/ swelling. encouraged to keep follow up appointment with urology for loza cath eval. Patient has remained stable throughout ED visit today. Discussed worrisome signs and symptoms and when to return to the ED. All questions answered at this time. Patient is agreeable with disposition and stable for discharge. Medications Administered Discontinued Medications Generic Name Dose Route Start Last Admin Trade Name Concepcion PRN Reason Stop Dose Admin Acetaminophen 650 mg 07/07/24 03:29 07/07/24 03:45 Acetaminophen 325 Mg Tablet PO 07/07/24 03:30 650 mg ONCE ONE Administration Cephalexin HCl 500 mg 07/07/24 08:27 07/07/24 08:53 Cephalexin 500 Mg Capsule PO 07/07/24 08:28 500 mg ONCE ONE Administration Medical Decision Making Medical Decision Making [facility] Narrative: 83 year old male with pmhx significant for T2DM with diabetic neuropathy, PAD, HTN, HDL, left great toe osteomyelitis presents to the ED today for evaluation of penile pain and swelling x1 week. Hypertensive to 168/74, vitals otherwise wnl. afebrile. not tachycardic. he is nontoxic appearing and in NAD. Lying comfortably on the exam bed. on sensitive exam, uncircumcised penis. glans with noted swelling, erythema. no warmth. noted crusting around the urethral meatus. no active discharge or bleding. TTP. loza catheter in place draining straw colored urine. Differential diagnosis includes cellulitis, balanitis. Unlikely phimosis, paraphimosis, acute urinary retention, UTI. Basic labs and UA obtained prior to my assumption of care. Tylenol given for pain control. Plan to review results. Antibiotics ordered. Plan for disposition. Differential Diagnosis Differential Diagnoses: The differential diagnosis associated with the presentation includes as above. Admission/Observation not indicated. Lab Data [facility] Lab Attestation statement: I reviewed the patient's lab results. as above. 07/07/24 03:41 07/07/24 03:41 Labs: Lab Results 07/07/24 Range/Units 03:41 WBC 12.2 H (4.8-10.8) X10*3/uL RBC 3.91 L (4.60-5.80) X10*6/uL Hgb 12.7 L (14.0-18.0) g/dl Hct 37.1 L (42.0-52.0) % MCV 94.9 (80.0-98.0) fL MCH 32.5 (27.0-33.0) pg MCHC 34.2 (31.0-36.0) g/dl RDW 12.3 (11.0-16.0) % Plt Count 289 (160-400) X10*3/uL MPV 10.8 (9.4-12.4) fL Immature Gran % (Auto) 0.6 H (0.0-0.4) % Neut % (Auto) 64.8 (45-73) % Lymph % (Auto) 23.2 (20-40) % Dickson % (Auto) 8.7 (2-11) % Eos % (Auto) 2.5 (0-4) % Baso % (Auto) 0.2 (0-2) % Lymph # (Auto) 2.8 (1.2-4.9) X10*3/uL Dickson # (Auto) 1.1 (0.1-1.2) X10*3/uL Eos # (Auto) 0.3 (0.0-0.4) X10*3/uL Baso # (Auto) 0.0 (0.0-0.2) X10*3/uL Abs Immat Gran (auto) 0.07 H (0.00-0.03) X10*3/uL Absolute Neuts (auto) 7.9 (2.0-8.3) x10*3/uL Absolute Nucleated RBC 0.000 (0.0-0.012) X10*3/uL Nucleated RBC % (auto) 0.0 (0.0-0.2) /100WBC Sodium 140 (135-145) mmol/L Potassium 4.0 (3.3-5.1) mmol/L Chloride 109 H (96-108) mmol/L Carbon Dioxide 21 L (22-29) mmol/L Anion Gap 14 (12-20) BUN 31 H (9-16) mg/dL Creatinine 1.10 (0.5-1.4) mg/dL Estim Creat Clear Calc 50.9 Estimated GFR > 60 Random Glucose 130 H (60-115) mg/dL Calcium 9.3 (8.4-10.2) mg/dL Total Bilirubin 0.5 (0.0-1.0) mg/dL AST 18 (5-37) U/L ALT 13 (0-40) U/L Alkaline Phosphatase 83 (39-117) U/L Total Protein 6.3 L (6.5-8.0) g/dL Albumin 3.7 (3.5-5.0) g/dL Urine Color Yellow Urine Appearance Clear Urine pH 5.5 (5.0-9.0) Ur Specific [place] 1.025 (1.005-1.025) Urine Protein 300 (3+) H (Neg-Trace) mg/dL Urine Glucose (UA) Negative (Negative) mg/dL Urine Ketones Negative (Negative) mg/dL Urine Blood Negative (Negative) Urine Nitrite Negative (Negative) Ur Leukocyte Esterase Negative (Negative) Urine RBC 0-2 (0-2) /HPF Urine WBC 0-5 (0-5) /HPF Ur Squamous Epith Cells 0-2 (0-2) /HPF Urine Bacteria None Seen (None Seen) Hyaline Casts 0-2 (0-2) /LPF Independent Historian Clinical information obtained from an independent historian. History obtained from or confirmed by: EMS External Record Review External record reviewed: Inpatient record Prescription Management I considered prescription management with: Pain Medication and Antibiotic (Mupirocin, Keflex) Chronic Conditions Patient?s care impacted by: Diabetes and Other (BPH) Social Determinants Patient?s care significantly limited by Social Determinants of Health including: Other Social Determinant of Health Critical Care Time Critical Care Time Critical Care Time: No Discharge Plan Discharge Clinical Impression: Balanitis, Loza catheter in place Patient Disposition: Home, Self-Care Instructions: Balanitis (ED) Additional Instructions: You were evaluated in the ED todya for penile pain/ swellling. Your physical exam is consistent with balanitis (swelling of the penis) with associated skin infection. Treatment for this is with antibiotics. Keflex is an oral antibiotic that has been sent to your pharmacy for treatment. You were given your first dose of this in the ED today. Take this four times daily for 7 days as directed. Do not skip any doses or stop taking this early as this may cause the infection to persist or worsen. Mupirocin antibiotic ointment has been sent to your pharmacy. Please apply this to the tip of your penis 3 times a day for 14 days. Your pain improved with tylenol in ED. I recommend you take 600mg ibuprofen every 6 hours or Tylenol 650mg every 6 hours as needed for pain. If needed, you can alternate these medications so that you take one medication every 3 hours. For example, at noon take ibuprofen, then at 3pm take Tylenol, then at 6pm take ibuprofen. This will also help with the swelling. Keep your scheduled appointment with urology for follow up on loza catheter. Please return to the ED today with new or worsening symptoms. In the case of an emergency call [phone]. Prescriptions: New mupirocin 2 % ointment 1 appl topical TID 14 Days Qty: 22 0RF cephalexin 500 mg capsule 500 mg PO QID 7 Days Qty: 28 0RF No Action atorvastatin 40 mg tablet 40 mg PO MOTH@1800 cyclosporine [Restasis] 0.05 % Dropperette 1 drp OPHTHALMIC (EYE) Q12H Rx Instructions: instill 1 drop into both eyes clopidogrel 75 mg Tablet 75 mg PO DAILY Qty: 30 0RF tamsulosin 0.4 mg Capsule 0.4 mg PO BEDTIME Qty: 30 0RF finasteride 5 mg Tablet 5 mg PO DAILY Qty: 30 0RF pantoprazole 40 mg tablet,delayed release (DR/EC) 40 mg PO DAILY amlodipine 5 mg Tablet 5 mg PO DAILY multivitamin Tablet 1 tab PO DAILY@1200 metformin 500 mg tablet 500 mg PO BID Referrals: [facility] [place] [facility] [Provider Group] Omi Farrar MD [Primary Care Provider] - Print Language: French
[2024-07-07] MEDS: cephALEXin 500 MG CAPSULE PO (08:53)
[2024-07-07] MEDS: Mupirocin 2 % Oint 22 GM TUBE 1 APPL TOPICAL (09:11)
[2024-07-07 09:42] VITALS: BP 168/74; PULSE 59; RESP 16; TEMP 36.8; O2SAT 97
== END 2024-07-07 09:44 | disposition home or self-care (01) ==
PROVIDERS: Emergency Provider Emergency Medicine; PCP Internal Medicine
DX: N48.1 Balanitis (principal); N48.89 Other specified disorders of penis; Z96.0 Presence of urogenital implants; E11.9 Type 2 diabetes mellitus without complications; I10 Essential (primary) hypertension; E78.5 Hyperlipidemia, unspecified; Z87.891 Personal history of nicotine dependence; Z79.84 Long term (current) use of oral hypoglycemic drugs; Z79.02 Long term (current) use of antithrombotics/antiplatelets; Z79.899 Other long term (current) drug therapy
CPT/HCPCS: 36415; 80053; 81001; 85025; 99283; 99284

== ENCOUNTER 2024-07-11 14:39 | Emergency (ER) | payer MEDICARE, SELFPAY ==
--- NOTE | ~2024-07-11 | XR_ITS ---
EXAMINATION: XR CHEST CLINICAL INFORMATION: Weakness COMPARISON: October 18, 2022 and June 24, 2024 TECHNIQUE: 2 views of the chest were obtained. FINDINGS: No significant abnormality is noted involving the heart, lungs, mediastinum, bony thorax or soft tissues. XR/XR chest 2V IMPRESSION: Unremarkable examination. Electronically signed by: Rohini Crystal MD 07/11/2024 04:37 PM EDT RP
--- NOTE | ~2024-07-11 | US_ITS ---
EXAMINATION: US TRIPLEX LOWER EXTREMITY, LEFT CLINICAL INFORMATION: Left leg pain and swelling COMPARISON: None available. TECHNIQUE: Color-flow triplex imaging with spectral analysis and compression Doppler were performed on the left lower extremity. FINDINGS: Respiratory variation, normal compression and augmented flow are noted throughout the left lower extremity. The visualized common femoral vein, superficial femoral vein, profunda femoral vein, popliteal vein and midcalf posterior tibial venous segments show no evidence of deep venous thrombosis. The peroneal vein is not visualized due to edema There is no Batres's cyst. US/US venous duplex LE LT IMPRESSION: No evidence of deep venous thrombosis involving the visualized left lower extremity. The peroneal vein is not visualized due to edema. If the patient's symptoms persist, followup ultrasound in 5 days 7 days might be of value to exclude proximal propagation from a non-visualized calf vein. Electronically signed by: Agusto Martinez MD 07/11/2024 06:13 PM EDT
[2024-07-11 15:02] VITALS: BP 158/72; PULSE 72; O2SAT 97
--- NOTE | 2024-07-11 15:11 | ED_ITS ---
HPI - General Adult General Chief complaint: General Medical Stated complaint: Leg pain and swelling since last night 05/10 Time Seen by Provider: 07/11/24 15:11 Source: patient History of Present Illness HPI narrative: 83-year-old male who has a history diabetes, BPH with chronic Guadalupe catheter, presents for evaluation of left leg swelling. Patient reports that he was in the emergency department on July 07 because of pain to the tip of his penis. He was diagnosed with a UTI and discharged with Keflex. Patient states he has been compliant with his medication. While at home today, visiting nurse noticed that his legs, specifically the left leg was swollen. This is not typical for the patient. Patient states that he thinks it started last night. He denies any history of similar symptoms. Denies any fevers chills nausea vomiting. No chest pain or shortness of breath. He has been eating and drinking normally. His last bowel movements earlier today. His Guadalupe is draining properly with yellow urine. Related Data Home Medications ?Medication ?Instructions ?Recorded ?Confirmed metformin 500 mg tablet 500 mg PO BID 06/30/20 06/24/24 multivitamin 1 tab PO DAILY@1200 06/30/20 06/24/24 atorvastatin 40 mg tablet 40 mg PO MOTH@1800 10/10/22 06/24/24 cyclosporine 0.05 % eye drops in a 1 drp ophthalmic (eye) Q12H 10/10/22 06/24/24 dropperette (Restasis) pantoprazole 40 mg tablet,delayed 40 mg PO DAILY 06/24/24 06/24/24 release amlodipine 5 mg tablet 5 mg PO DAILY 06/27/24 06/27/24 Previous Rx's ?Medication ?Instructions ?Recorded clopidogrel 75 mg tablet 75 mg PO DAILY #30 tabs 10/20/22 finasteride 5 mg tablet 5 mg PO DAILY #30 tabs 10/20/22 tamsulosin 0.4 mg capsule 0.4 mg PO BEDTIME #30 caps 10/20/22 cephalexin 500 mg capsule 500 mg PO QID 7 days #28 caps 07/07/24 mupirocin 2 % topical ointment 1 appl topical TID 14 days #22 07/07/24 grams furosemide 20 mg tablet 20 mg PO DAILY #5 tabs 07/11/24 Allergies Allergy/AdvReac Type Severity Reaction Status Date / Time clindamycin [From CLEOCIN] Allergy Severe BLACK STOOL Verified 07/11/24 15:52 Sulfa (Sulfonamide Allergy Swelling Verified 07/11/24 15:52 Antibiotics) Review of Systems 2 Constitutional: Constitutional: Denies chills and Denies fever(s) Eyes: Eyes: Denies other (No redness.) ENT: Denies nasal congestion Cardiovascular: Cardiovascular: Denies chest pain, Denies palpitations, Denies dyspnea, Denies dyspnea on exertion and Denies orthopnea Respiratory: Respiratory: Denies cough, Denies dyspnea and Denies dyspnea on exertion Gastrointestinal: Gastrointestinal: Denies abdominal pain, Denies melena, Denies hematochezia, Denies diarrhea, Denies nausea and Denies vomiting Genitourinary: Genitourinary: Denies difficulty urinating, Reports dysuria and Denies urinary urgency Musculoskeletal: Musculoskeletal: Denies back pain, Denies muscle weakness and Denies numbness Integumentary/Breasts: Skin/Breast: Denies rash Neurologic: Denies focal weakness and Denies numbness Psychiatric: Psychiatric: Denies depression Endocrine: Endocrine: Denies palpitations [facility] Past Medical History Medical History 1st degree AV block PAD (peripheral artery disease) Skin ulcer of left great toe Hypertension Type 2 diabetes mellitus Diabetes PSA (psoriatic arthritis) Surgical History History of atherectomy Social History Social History Household Members: Family Household Members Other:: 1 Housing: House Do you presently have visiting nurse or other home services: No Alcohol intake: former Comment: 1 assist with walker Patient Tobacco Use Status: Former Tobacco user Tobacco use type: Cigarette Cigarette Packs Per Day: 0.5 Cigarettes Per Day: 10.0 Years Smoked: 15 e-Cigarette/Vaping Use: Never Used Second Hand Smoke Exposure: No Advance Directives: No Advance Directives Information Provided: No Advance Directives Date on File: 10/10/22 Do you have a plan to hurt others: No Plan service: No Current occupational status: retired Physical Exam ED Vital Signs: Vital Signs - 24 hr 07/11/24 15:50 07/11/24 17:09 07/11/24 18:30 Temperature 98.3 F 98.9 F Pulse Rate 67 66 70 Respiratory Rate 20 12 14 Blood Pressure 148/88 H 159/80 H 166/87 H Pulse Oximetry 95 98 98 Oxygen Delivery Method Room Air Room Air 07/11/24 19:25 Temperature Pulse Rate Respiratory Rate Blood Pressure 140/78 H Pulse Oximetry Oxygen Delivery Method BMI result Body Mass Index 25.7 Const General: cooperative, comfortable, alert and awake Resp Other: Lung sounds clear throughout. No wheezes rales or rhonchi. Cardio Rate: regular rate Rhythm: regular rhythm GI Other: Abdomen is soft nontender throughout. No peritoneal signs. Extrem Other: There is +1 lower extremity edema on the left to the mid tibia. There is tenderness to the left calf. There is no erythema. Trace edema on the right. There is no calf tenderness or erythema on the right. DP pulses are +1 and equal bilaterally. Course Course Course Narrative: 6:40 p.m. I reviewed all labs and imaging with the patient and his daughter at the bedside. Patient remains hemodynamically stable. He denies any chest pain or shortness of breath. Labs are unremarkable except for slight elevation in BNP. Ultrasound and chest x-ray are unremarkable. I have had an extensive discussion with the patient regarding his disposition. 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 Patient is comfortable with this plan. I have discussed the possibility of rehab placement but the patient is adamantly refusing. The patient has a urology follow-up on July 29. In the interim, patient is agreeable to trial of furosemide for lower extremity edema. Patient and daughter expressed understanding of all discharge instructions and have no further questions at this time. Medications Administered Discontinued Medications Generic Name Dose Route Start Last Admin Trade Name Freq PRN Reason Stop Dose Admin Furosemide 20 mg 07/11/24 18:43 07/11/24 19:25 Furosemide 20 Mg Tablet PO 07/11/24 18:44 20 mg ONCE ONE Administration Protocol Lidocaine HCl 10 ml 07/11/24 16:40 07/11/24 17:04 Lidocaine Hcl 2 % Urojet 10 Ml Jel.Pf.Harshal TOPICAL 07/11/24 16:41 10 ml ONCE ONE Administration Medical Decision Making Medical Decision Making MDM Narrative: 83-year-old male with a history of diabetes, chronic Guadalupe catheter placement due to BPH currently on Keflex for UTI with new left leg edema and pain. Patient is hemodynamically stable. He is afebrile. Check labs, BNP, troponin, including EKG and chest x-ray. Check left leg ultrasound to further evaluate for DVT. Patient is currently on Plavix. Concern for renal or hepatic abnormality. Low suspicion for sepsis at this time. Differential Diagnosis Differential Diagnoses: The differential diagnosis associated with the presentation includes UTI Pyelonephritis DVT HFrEF Dependent edema Metabolic abnormality Admission/Observation Consideration of admission/observation: Escalation of care including admission/observation considered Lab Data MDM Lab Attestation statement: I reviewed the patient's lab results. 07/11/24 15:56 07/11/24 15:56 Labs: Lab Results 07/11/24 07/11/24 07/11/24 Range/Units 15:55 15:56 17:08 WBC 11.2 H (4.8-10.8) X10*3/uL RBC 3.81 L (4.60-5.80) X10*6/uL Hgb 12.7 L (14.0-18.0) g/dl Hct 36.9 L (42.0-52.0) % MCV 96.9 (80.0-98.0) fL MCH 33.3 H (27.0-33.0) pg MCHC 34.4 (31.0-36.0) g/dl RDW 12.7 (11.0-16.0) % Plt Count 295 (160-400) X10*3/uL MPV 10.8 (9.4-12.4) fL Immature Gran % (Auto) 0.5 H (0.0-0.4) % Neut % (Auto) 68.6 (45-73) % Lymph % (Auto) 19.6 L (20-40) % [place] % (Auto) 8.2 (2-11) % Eos % (Auto) 2.8 (0-4) % Baso % (Auto) 0.3 (0-2) % Lymph # (Auto) 2.2 (1.2-4.9) X10*3/uL [place] # (Auto) 0.9 (0.1-1.2) X10*3/uL Eos # (Auto) 0.3 (0.0-0.4) X10*3/uL Baso # (Auto) 0.0 (0.0-0.2) X10*3/uL Abs Immat Gran (auto) 0.06 H (0.00-0.03) X10*3/uL Absolute Neuts (auto) 7.7 (2.0-8.3) x10*3/uL Absolute Nucleated RBC 0.000 (0.0-0.012) X10*3/uL Nucleated RBC % (auto) 0.0 (0.0-0.2) /100WBC Sodium 138 (135-145) mmol/L Potassium 4.8 (3.3-5.1) mmol/L Chloride 106 (96-108) mmol/L Carbon Dioxide 25 (22-29) mmol/L Anion Gap 12 (12-20) BUN 37 H (9-16) mg/dL Creatinine 1.03 (0.5-1.4) mg/dL Estim Creat Clear Calc 54.4 Estimated GFR > 60 Random Glucose 113 (60-115) mg/dL Calcium 9.6 (8.4-10.2) mg/dL Magnesium 2.0 (1.6-2.6) mg/dL Total Bilirubin 0.5 (0.0-1.0) mg/dL AST 19 (5-37) U/L ALT 15 (0-40) U/L Alkaline Phosphatase 93 (39-117) U/L Troponin I High Sens 3.3 (<3.5-35.0) ng/L B-Natriuretic Peptide 170 H (<100) pg/mL Total Protein 6.5 (6.5-8.0) g/dL Albumin 3.7 (3.5-5.0) g/dL Urine Color Yellow Urine Appearance Clear Urine pH 5.5 (5.0-9.0) Ur Specific [place] 1.015 (1.005-1.025) Urine Protein 100 (2+) H (Neg-Trace) mg/dL Urine Glucose (UA) Negative (Negative) mg/dL Urine Ketones Negative (Negative) mg/dL Urine Blood Large (3+) H (Negative) Urine Nitrite Negative (Negative) Ur Leukocyte Esterase Trace H (Negative) Urine RBC >20 H (0-2) /HPF Urine WBC 6-10 H (0-5) /HPF Ur Squamous Epith Cells 0-2 (0-2) /HPF Urine Bacteria None Seen (None Seen) Hyaline Casts 0-2 (0-2) /LPF Radiology Impression Discussion of test interpretation with radiology: I have reviewed the radiologist's reading. Radiologist Impression: [address] [address] Ultrasound Report Signed Patient: Lefty Ortiz MR#: [id number] : 1940 Acct:[id number] Age/Sex: 83 / M ADM Date: 07/11/24 Loc: .ED Attending Dr: Ordering Physician: Toy Mercer Date of Service: 07/11/24 Procedure(s): US venous duplex LE LT Accession Number(s): [id number] cc: ANS RILEY MD; Toy Mercer~ EXAMINATION: US TRIPLEX LOWER EXTREMITY, LEFT CLINICAL INFORMATION: Left leg pain and swelling COMPARISON: None available. TECHNIQUE: Color-flow triplex imaging with spectral analysis and compression Doppler were performed on the left lower extremity. FINDINGS: Respiratory variation, normal compression and augmented flow are noted throughout the left lower extremity. The visualized common femoral vein, superficial femoral vein, profunda femoral vein, popliteal vein and midcalf posterior tibial venous segments show no evidence of deep venous thrombosis. The peroneal vein is not visualized due to edema There is no Batres's cyst. US/US venous duplex LE LT IMPRESSION: No evidence of deep venous thrombosis involving the visualized left lower extremity. The peroneal vein is not visualized due to edema. If the patient's symptoms persist, followup ultrasound in 5 days 7 days might be of value to exclude proximal propagation from a non-visualized calf vein. Electronically signed by: Agusto Martinez MD 07/11/2024 06:13 PM EDT Dictated By: Agusto Martinez MD Signed By: <Electronically signed by Agusto Martinez MD in OV> 07/11/24 181 DD/ 1721 TD/TT: 07/11/24 1733 Records Management Coordinator: [address] [address] XRay Report Signed Patient: Lefty Ortiz MR#: [id number] : 1940 Acct:[id number] Age/Sex: 83 / M ADM Date: 07/11/24 Loc: HO.ED Attending Dr: Ordering Physician: Toy Mercer Date of Service: 07/11/24 Procedure(s): XR chest 2V Accession Number(s): [id number] cc: NAS RILEY MD; Toy Mercer~ EXAMINATION: XR CHEST CLINICAL INFORMATION: Weakness COMPARISON: October 18, 2022 and June 24, 2024 TECHNIQUE: 2 views of the chest were obtained. FINDINGS: No significant abnormality is noted involving the heart, lungs, mediastinum, bony thorax or soft tissues. XR/XR chest 2V IMPRESSION: Unremarkable examination. Electronically signed by: Rohini Crystal MD 07/11/2024 04:37 PM EDT RP Dictated By: Rohini Crystal MD Signed By: <Electronically signed by Rohini Crystal MD in OV> 07/11/24 1637 DD/ 1534 TD/TT: 07/11/24 1540 Records Management Coordinator: Independent Historian Clinical information obtained from an independent historian. History obtained from or confirmed by: Other (daughter) External Record Review External record reviewed: Inpatient record Discharge Plan Discharge Clinical Impression: Leg edema, left, Chronic indwelling Guadalupe catheter Patient Disposition: Home, Self-Care Instructions: Leg Edema (ED) Additional Instructions: Lasix as directed. Follow-up with your primary care provider as you will need reassessment after taking this medication. Continue with your Guadalupe catheter as directed. Follow up with your urologist at your current appointment. Continue antibiotics as directed. Finish all medication. Rest. Avoid strenuous activity. Elevate your legs. Follow-up with your primary care provider. Call this week to schedule a follow- up appointment. Return to the emergency department if you have any worsening of symptoms, or any concerns. Get well soon! Prescriptions: New furosemide 20 mg tablet 20 mg PO DAILY Qty: 5 0RF No Action atorvastatin 40 mg tablet 40 mg PO MOTH@1800 cyclosporine [Restasis] 0.05 % Dropperette 1 drp OPHTHALMIC (EYE) Q12H Rx Instructions: instill 1 drop into both eyes clopidogrel 75 mg Tablet 75 mg PO DAILY Qty: 30 0RF tamsulosin 0.4 mg Capsule 0.4 mg PO BEDTIME Qty: 30 0RF finasteride 5 mg Tablet 5 mg PO DAILY Qty: 30 0RF pantoprazole 40 mg tablet,delayed release (DR/EC) 40 mg PO DAILY amlodipine 5 mg Tablet 5 mg PO DAILY mupirocin 2 % ointment 1 appl topical TID 14 Days Qty: 22 0RF cephalexin 500 mg capsule 500 mg PO QID 7 Days Qty: 28 0RF multivitamin Tablet 1 tab PO DAILY@1200 metformin 500 mg tablet 500 mg PO BID Print Language: French
--- NOTE | 2024-07-11 15:18 | ECG_ITS ---
Test Reason : weakness Blood Pressure : / mmHG Vent. Rate : 065 BPM Atrial Rate : 065 BPM P-R Int : 294 ms QRS Dur : 144 ms QT Int : 410 ms P-R-T Axes : 000 -75 013 degrees QTc Int : 426 ms Sinus rhythm with 1st degree A-V block Left axis deviation Right bundle branch block Abnormal ECG When compared with ECG of 24-JUN-2024 12:54, Premature supraventricular complexes are no longer Present QT has shortened Referred By: Toy Mercer Electronically Signed By:GABRIEL GARBER MD
[2024-07-11 15:50] VITALS: BP 148/88; PULSE 67; RESP 20; TEMP 36.8; O2SAT 95; BMI 25.7
[2024-07-11 16:13] LABS: Basophils Percent Auto 0.3 % (0-2); Eosinophils Absolute Auto 0.3 X10*3/uL (0.0-0.4); Eosinophils Percent Auto 2.8 % (0-4); Hematocrit 36.9 % (42.0-52.0); Hemoglobin 12.7 g/dl (14.0-18.0); Imm Gran Abs Auto 0.06 X10*3/uL (0.00-0.03); Imm Gran Pct Auto 0.5 % (0.0-0.4); Lymphocytes Absolute Auto 2.2 X10*3/uL (1.2-4.9); Lymphocytes Percent Auto 19.6 % (20-40); MANUAL DIFF FLAG NO; Mean Corpuscular HGB Conc 34.4 g/dl (31.0-36.0); Mean Corpuscular Hemoglobin 33.3 pg (27.0-33.0); Mean Corpuscular Volume 96.9 fL (80.0-98.0); Mean Platelet Volume 10.8 fL (9.4-12.4); Monocytes Absolute Auto 0.9 X10*3/uL (0.1-1.2); Monocytes Percent Auto 8.2 % (2-11); Neutrophils Absolute Auto 7.7 x10*3/uL (2.0-8.3); Neutrophils Percent Auto 68.6 % (45-73); Platelet Count 295 X10*3/uL (160-400); Red Blood Count 3.81 X10*6/uL (4.60-5.80); Red Cell Distribution Width 12.7 % (11.0-16.0); White Blood Count 11.2 X10*3/uL (4.8-10.8)
[2024-07-11 16:27] LABS: Alanine Aminotransferase 15 U/L (0-40); Albumin Level 3.7 g/dL (3.5-5.0); Alkaline Phosphatase 93 U/L (39-117); Anion Gap 12 (12-20); Aspartate Amino Transferase 19 U/L (5-37); Bilirubin Total 0.5 mg/dL (0.0-1.0); Blood Urea Nitrogen 37 mg/dL (9-16); Calcium 9.6 mg/dL (8.4-10.2); Carbon Dioxide 25 mmol/L (22-29); Chloride 106 mmol/L (96-108); Creatinine Clr Calc Pharmacy 54.4; Estimated Glomerular Filt Rate > 60; Glucose Random 113 mg/dL (60-115); Potassium 4.8 mmol/L (3.3-5.1); Sodium 138 mmol/L (135-145); Total Protein 6.5 g/dL (6.5-8.0)
[2024-07-11 16:34] LABS: B Type Natriuretic Peptide 170 pg/mL (<100)
[2024-07-11 16:35] LABS: Troponin-I High Sensitivity 3.3 ng/L (<3.5-35.0)
[2024-07-11] MEDS: Lidocaine HCl 2 % Urojet 10 ML JEL.PF.APP TOPICAL (17:04)
[2024-07-11 17:09] VITALS: BP 159/80; PULSE 66; RESP 12; O2SAT 98
[2024-07-11 17:20] LABS: Appearance Urine Clear; Color Urine Yellow; Glucose Urine UA Negative (Negative); Leukocyte Esterase Urine Trace (Negative); Nitrite Urine Negative (Negative); PH 5.5 (5.0-9.0); Specific Gravity - Urine 1.015 (1.005-1.025); UMIC TRIGGER UA YES; Urine Blood Large (3+) (Negative); Urine Ketones Negative (Negative); Urine Protein 100 (2+) mg/dL (Neg-Trace)
[2024-07-11 17:22] LABS: Bacteria Urine None Seen (None Seen); Hyaline Casts Urine 0-2 /LPF (0-2); RBC Urine >20 /HPF (0-2); Squamous Epithelial Cell Urine 0-2 /HPF (0-2)
[2024-07-11 18:30] VITALS: BP 166/87; PULSE 70; RESP 14; TEMP 37.2; O2SAT 98
[2024-07-11 19:25] VITALS: BP 140/78
[2024-07-11] MEDS: Furosemide 20 MG TABLET PO (19:25)
[2024-07-11 19:37] VITALS: BP 142/78; PULSE 65; RESP 18; TEMP 36.9; O2SAT 98
== END 2024-07-11 19:39 | disposition home or self-care (01) ==
PROVIDERS: Physician Assistant; Emergency Provider Emergency Medicine; PCP Internal Medicine
DX: R60.0 Localized edema (principal); I10 Essential (primary) hypertension; E11.9 Type 2 diabetes mellitus without complications; I44.0 Atrioventricular block, first degree; Z96.0 Presence of urogenital implants; Z79.84 Long term (current) use of oral hypoglycemic drugs; Z79.02 Long term (current) use of antithrombotics/antiplatelets; Z79.899 Other long term (current) drug therapy
CPT/HCPCS: 36415; 71046; 80053; 81001; 83735; 83880; 84484; 85025; 93005; 93971; 99284

== ENCOUNTER → 2024-07-11 15:18 | Outpatient (BNV) | payer MEDICARE, SELFPAY | PROVIDERS: Emergency Provider Emergency Medicine; PCP Internal Medicine; Visit Provider Internal Medicine Cardiovascular Disease | DX: I44.0 Atrioventricular block, first degree (principal) | CPT/HCPCS: 93010 ==

== ENCOUNTER 2024-07-29 08:45 | Outpatient (AMB) | payer MEDICARE, SELFPAY ==
--- NOTE | 2024-07-29 08:51 | MHC.OFFVIS ---
Intake Visit Reasons: [facility] [place] ER-obstructive uropathy/urinary retention/VT Intake Note: Patient is present for [facility] [place] ER- Obstructive Uropathy/Urinary Retention/VT Urology Medication:TAMSULOSIN,FINASTERIDE,FUROSEMIDE Antibiotic Allergy:SULFA,CLINDAMYCIN Blood Thinner:NONE PVR:237ML- Patient was not able to empty bladder. 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 Accompanied by his 2 daughters. He is a patient of . He is seen for the following urologic conditions - obstructive uropathy with elevated creatinine Had been seen in the emergency room for obstructive uropathy On tamsulosin and finasteride Failed voiding trial in office today Retry in 4 weeks with cystoscopy Catheter replaced Imaging - The kidneys are normal in size, shape, and attenuation. There is marked bilateral hydronephrosis and dilatation of the ureters down to the level of the bladder. No obstructing calculi are seen. No intrarenal calculi are seen. No renal masses are detected. The bladder is markedly distended. The prostate is moderately to markedly enlarged [facility] Medical History 1st degree AV block PAD (peripheral artery disease) Skin ulcer of left great toe Hypertension Type 2 diabetes mellitus Diabetes PSA (psoriatic arthritis) Surgical History History of atherectomy Social History Household Members: Family Household Members Other:: 1 Housing: House Do you presently have visiting nurse or other home services: No Alcohol intake: former Comment: 1 assist with walker Patient Tobacco Use Status: Former Tobacco user Tobacco use type: Cigarette Cigarette Packs Per Day: 0.5 Cigarettes Per Day: 10.0 Years Smoked: 15 e-Cigarette/Vaping Use: Never Used Second Hand Smoke Exposure: No Advance Directives Date on File: 10/10/22 service: No Current occupational status: retired Review of Systems Const Denies chills and Denies fever(s) Card Reports no additional complaints and Denies syncope Resp Denies cough GI Denies abdominal pain and Denies heartburn Reports as per HPI and Denies change in libido Neuro Denies syncope Psych Denies change in libido Endo Denies change in libido Physical Exam Const General: cooperative, healthy appearing, comfortable and no acute distress Orientation/consciousness: patient oriented x3 HEENT Face and sinus: Yes normal facial exam Mouth: moist mucous membranes Neck Neck: Yes normal visual inspection, Yes full ROM and Yes trachea midline Chest Chest palpation & inspection: normal inspection of the chest Resp Effort & Inspection: normal respiratory effort, able to speak in complete sentences and no respiratory distress GI Inspection: Yes normal to inspection Back/Spine/Pelvis Cervical Spine: normal cervical lordosis Thoracic/Lumbar Spine: thoracic and lumbar spine normal to inspection Skin General skin exam: no rashes or lesions noted Neuro General: patient oriented x3, gait normal, tone normal and moves all extremities Extrem General: Yes normal to inspection and Yes capillary refill normal Office Procedures Bladder/Catheter Procedure Details: 120 mL of sterile water instilled through catheter. 18 kazakh Loza catheter with 10 mL balloon removed without difficulty. Patient tolerated well. Patient then walked to the bathroom and is trying to void freely. He was stable on his feet and denied needing any assistance. Patient could not void freely, failed voiding trial. Dr. Medina gave verbal orders to reinsert a loza catheter, 16 kazakh. Next visit with Dr. Medina in 4 weeks. 16 kazakh Monica with 10 mL balloon inserted without problems. Clear yellow urine draining. Blue plugs provided/education to patient and family. Education on overnight bag. All questions answered and patient understood/agreed. I advised that he call the office with any questions or concerns. 47427-Hvbdemweiy of Bladder [id number] Bladder Catheter Procedure code (CPT) selection complete Assessment & Plan Assessment & Plan (1) Acute urinary retention: Code(s): R33.8 - Other retention of urine Category: Medical (2) Bilateral hydronephrosis: Code(s): N13.30 - Unspecified hydronephrosis Category: Medical (3) Bladder outlet obstruction: Code(s): N32.0 - Bladder-neck obstruction Category: Medical Plan Four week follow-up office cystoscopy Orders: Orders AMB Bladder/Catheter Procedure Today N32.0 - Bladder-neck obstruction, R33.8 - Other retention of urine AMB Post Void Residual by ultrasound Today N32.0 - Bladder-neck obstruction Patient Instructions: Imaging studies, laboratory and physical exam results were discussed and reviewed in detail. No major barriers to patient understanding were identified. An opportunity to ask questions regarding the treatment plan was provided. All questions were answered. The patient expressed understanding and agreement with the above treatment plan. The patient is aware they should contact our office by phone for worsening of their current condition or the appearance of new urologic symptoms. Compliance is encouraged with any medications and followup testing that is ordered. It is a privilege to participate in the urologic care of your patient. If you have any questions or concerns regarding treatment for the above conditions, or other urologic issues, please do not hesitate to contact me. The office telephone contact is [phone]. This note is constructed using voice recognition software. While every effort has been made to ensure accuracy semiconductor wafers saw operator errors may have been included. Yours sincerely, Dr Pedro Medina MD, [facility] - Urology Providers of Expert, Compassionate Care for the Genitourinary System Coding Level of Care Code New Pt Level 4 (64578) Diagnoses Acute urinary retention R33.8 Bilateral hydronephrosis N13.30 Bladder outlet obstruction N32.0 CPT Codes Bladder/Catheter Procedure - CPT: 58133-Qjhvrqtluy of Bladder ([id number]) Bladder/Catheter Procedure - CPT: 61331-Zgdqfn Bladder Catheter ([id number])
== END 2024-07-29 09:48 | disposition home or self-care (01) ==
LOC: HO.HUSH 08:46
PROVIDERS: PCP Internal Medicine; Visit Provider Urology
DX: R33.8 Other retention of urine (principal); N13.30 Unspecified hydronephrosis; N32.0 Bladder-neck obstruction
CPT/HCPCS: 51700; 99204

== ENCOUNTER → 2024-07-29 08:45 | Outpatient (BNVA) | payer MEDICARE, SELFPAY | PROVIDERS: PCP Internal Medicine; Visit Provider Urology | DX: R33.8 Other retention of urine (principal); N13.30 Unspecified hydronephrosis; N32.0 Bladder-neck obstruction; R94.4 Abnormal results of kidney function studies | CPT/HCPCS: 51700; 99202 ==

== ENCOUNTER 2024-08-20 13:43 | Outpatient (AMB) | payer MEDICARE, SELFPAY ==
--- NOTE | 2024-08-20 13:50 | MHC.OFFVIS ---
Intake Visit Reasons: 4w Cystoscopy/Cath Change Intake Note: Patient is present for Cystoscopy/Catheter Change Urology Med: Tamsulosin, Finasteride Antibiotic Allergy: Clindamycin, Sulfa Blood Thinner: Clopidogrel Patient failed VT at last Visit Last PVR: 237ML URO G-HD Disposable Cystoscope LOT:[id number] EXP:11/01/2026 Patient is present with both daughters that care for him. Patient states that he has been using the plug during the day and bag during the night has no complaints currently on Catheter Todays PVR: 319ML Patient is unable to urinate after Cystoscopy. Patient states he does not have urge to go at all Helicopter Repairer Required: No Fabricator Assembler Metal Products: Fabricator Assembler Metal Products Present Accompanied by: Daughter Allergies clindamycin [From CLEOCIN] Allergy (Severe, Verified 08/20/24 14:01) BLACK STOOL Sulfa (Sulfonamide Antibiotics) Allergy (Verified 08/20/24 14:01) Swelling HPI Comments Details: Lefty is a pleasant male. Accompanied by his 2 daughters. He is a patient of Dr. Farrar. He is seen for the following urologic conditions - obstructive uropathy with elevated creatinine Cystoscopy today Enlarged median lobe Failed 2nd voiding trial Discussed with daughters Plan GreenLight laser prostatectomy with the suprapubic tube placement Obstructive uropathy with elevated creatinine Initially seen in emergency room Placed on combination therapy Failed initial voiding trial Here for cystoscopy with catheter placement Imaging - The kidneys are normal in size, shape, and attenuation. There is marked bilateral hydronephrosis and dilatation of the ureters down to the level of the bladder. No obstructing calculi are seen. No intrarenal calculi are seen. No renal masses are detected. The bladder is markedly distended. The prostate is moderately to markedly enlarged [facility] Medical History 1st degree AV block PAD (peripheral artery disease) Skin ulcer of left great toe Hypertension Type 2 diabetes mellitus Diabetes PSA (psoriatic arthritis) Surgical History History of atherectomy Social History Household Members: Family Household Members Other:: 1 Housing: House Do you presently have visiting nurse or other home services: No Alcohol intake: former Comment: 1 assist with walker Patient Tobacco Use Status: Former Tobacco user Tobacco use type: Cigarette Cigarette Packs Per Day: 0.5 Cigarettes Per Day: 10.0 Years Smoked: 15 e-Cigarette/Vaping Use: Never Used Second Hand Smoke Exposure: No Advance Directives Date on File: 10/10/22 service: No Current occupational status: retired Review of Systems Const Denies chills and Denies fever(s) Card Reports no additional complaints and Denies syncope Resp Denies cough GI Denies abdominal pain and Denies heartburn Reports as per HPI and Denies change in libido Neuro Denies syncope Psych Denies change in libido Endo Denies change in libido Physical Exam Const General: cooperative, healthy appearing, comfortable and no acute distress Orientation/consciousness: patient oriented x3 HEENT Face and sinus: Yes normal facial exam Mouth: moist mucous membranes Neck Neck: Yes normal visual inspection, Yes full ROM and Yes trachea midline Chest Chest palpation & inspection: normal inspection of the chest Resp Effort & Inspection: normal respiratory effort, able to speak in complete sentences and no respiratory distress GI Inspection: Yes normal to inspection Back/Spine/Pelvis Cervical Spine: normal cervical lordosis Thoracic/Lumbar Spine: thoracic and lumbar spine normal to inspection Skin General skin exam: no rashes or lesions noted Neuro General: patient oriented x3, gait normal, tone normal and moves all extremities Extrem General: Yes normal to inspection and Yes capillary refill normal Office Procedures Cystoscopy Consent Discussed risk and benefit or proposed procedure with the patient. Information consent for procedure given to the patient. Discussed technical aspects, risks, benefits and alternatives in full. Addressed all of the patient's questions and concerns regarding the procedure. The patient demonstrated knowledge and understanding. They wish to proceed with this procedure. Preparation The patient was prepped in the usual manner. A instructor of sociology was present and in the room. Genitalia was prepped with betadine solution in a sterile manner. Lidocaine Jelly 2% was placed into the urethra and 16Fr flexible Olympus cystoscope was inserted into the meatus after adequate lubrication. Procedure Cystoscopy performed using a disposable Mitoo SportsvCoveroo digital 16 Macedonian cystoscope. Meatus normal position Urethra anterior and posterior urethra normal Prostatic Urethra large median prostate Bladder examination with retroflexion of cystoscope Bladder Orifices normal Bladder Capacity medium Trabeculations grade 2/3 Cellule Formation - Diverticulum Formation - Mucosal Erythema patchy erythema Bladder Tumor none 16fr loza catheter removed, patient tolerated removal well. Patient prepped for cystoscopy procedure per protocol. 37222-Nhbfyeneny DISPOSABLE SCOPE URO-G FLEXIBLE SCOPE Procedure code (CPT) selection complete Post Void Residual Post Residual Void Post Void Residual (PVR): 319 [id number]-Accq Void Residual by ultrasound Office Meds lidocaine HCl 2 % mucosal jelly in applicator Performing Provider: Pedro Medina MD Performing Location: [facility] [place] Administered by: EBENEZER Fitch on 08/20/24 14:03 Dose Route Admin Location Dispensed Lot Number Expiration Date NDC Risk Prevention Engineer 10 mL intra-urethral 10 mL nitrofurantoin monohydrate/macrocrystals 100 mg capsule Performing Provider: Pedro Medina MD Performing Location: [facility] Administered by: EBENEZER Fitch on 08/20/24 14:03 Dose Route Admin Location Dispensed Lot Number Expiration Date NDC Risk Prevention Engineer 100 mg PO 1 cap naproxen 500 mg tablet Performing Provider: Pedro Medina MD Performing Location: [facility] [place] Administered by: EBENEZER Fitch on 08/20/24 14:03 Dose Route Admin Location Dispensed Lot Number Expiration Date NDC Risk Prevention Engineer 500 mg PO 1 tab Assessment & Plan Assessment & Plan (1) Acute urinary retention: Code(s): R33.8 - Other retention of urine Category: Medical (2) Bilateral hydronephrosis: Code(s): N13.30 - Unspecified hydronephrosis Category: Medical (3) Bladder outlet obstruction: Code(s): N32.0 - Bladder-neck obstruction Category: Medical Plan We discussed the nature of the decision and reasonable options for performing a prostate intervention. Interventions include TURP, GreenLight laser enucleation of the prostate, GreenLight laser ablation of the prostate, transurethral incision of the prostate, and I-Tend prostate procedure. Options such as medical therapy were discussed. The relative uncertainties and benefits related to each alternate procedure were adequately discussed. General surgical risks including, but not limited to, pain, bleeding, infection, myocardial infarction, pulmonary embolus, deep vein thrombosis and cerebrovascular accident which may result in further hospitalization were discussed. Full disclosure of the procedure as well as all major risks, benefits and complications were discussed including but not limited to damage to the urethra or bladder neck, recurrent BPH, retrograde ejaculation, bladder infection, urge, de tayler frequency, incomplete emptying, dysuria, remote chance of erectile dysfunction, epididymitis, and meatal stenosis. The success rate of the procedure was discussed. Success of the procedure in the short-term does not necessarily guarantee that long-term success will be maintained. Suitable follow up will need to be maintained. The patient showed understanding of discussion. An opportunity was provided for questions to be answered and wishes to proceed with the following procedure. - GreenLight laser prostatectomy suprapubic tube placement Orders: Orders AMB Post Void Residual by ultrasound Today R33.8 - Other retention of urine AMB Cystoscopy Today R33.8 - Other retention of urine Patient Instructions: Imaging studies, laboratory and physical exam results were discussed and reviewed in detail. No major barriers to patient understanding were identified. An opportunity to ask questions regarding the treatment plan was provided. All questions were answered. The patient expressed understanding and agreement with the above treatment plan. The patient is aware they should contact our office by phone for worsening of their current condition or the appearance of new urologic symptoms. Compliance is encouraged with any medications and followup testing that is ordered. It is a privilege to participate in the urologic care of your patient. If you have any questions or concerns regarding treatment for the above conditions, or other urologic issues, please do not hesitate to contact me. The office telephone contact is [phone]. This note is constructed using voice recognition software. While every effort has been made to ensure accuracy hollow handle bench worker errors may have been included. Yours sincerely, Dr Pedro Medina MD, [facility] - Urology Providers of Expert, Compassionate Care for the Genitourinary System Coding Level of Care Code Est Pt Level 4 (76963) Diagnoses Acute urinary retention R33.8 Bilateral hydronephrosis N13.30 Bladder outlet obstruction N32.0 CPT Codes Cystoscopy - CPT: 20466-Fqrdllnzyl ([id number]) Post Residual Void - PVR CPT Code: 51886-Cwte Void Residual by ultrasound ([id number])
== END 2024-08-20 15:11 | disposition home or self-care (01) ==
PROVIDERS: PCP Internal Medicine; Visit Provider Urology
DX: R33.8 Other retention of urine (principal); N13.30 Unspecified hydronephrosis; N32.0 Bladder-neck obstruction
CPT/HCPCS: 52000; 99214

== ENCOUNTER → 2024-08-20 13:43 | Outpatient (BNVA) | payer MEDICARE, SELFPAY | PROVIDERS: PCP Internal Medicine; Visit Provider Urology | DX: R33.8 Other retention of urine (principal); N13.30 Unspecified hydronephrosis; N32.0 Bladder-neck obstruction | CPT/HCPCS: 51798; 52000; 99212 ==

== ENCOUNTER 2024-10-13 07:25 | Day surgery (SDC) | payer MEDICARE, SELFPAY ==
--- OUTSIDE RECORDS SUMMARY | 2024-09-15 12:26 | XMS_ITS | Continuity of Care Document ---
Author Organization [facility] Ezra Vinod lt Address [address] [place] [address]- Care Team Providers Care Space Officer Name Role Phone Omi Farrar MD Primary Care Physician [place] [facility] [place]24 [facility] Adult [address] [place] [address]- Attending Physician: Omi Farrar MD Encounter Type: Office Visit Allergies, Adverse Reactions, Alerts Substance Criticality Severity Reaction Reaction Severity Status sulfADIAZINE redness Active atorvastatin 1 Activ e 1myalgia Immunizations Given and Recorded Vaccine Date Status Refusal Reason influenza virus vaccine, inactivated 08/19/24 Give n influenza virus vaccine, inactivated 09/26/22 Give n [...] [facility] Medications amLODIPine 5 mg oral tablet 5 mg, 1, tablet, By Mouth, Daily, # 90 tablet, Refills 3, Tot. Refills 3, Maintenance, 06/17/24 2:12:00 PM EDT, Route to Pharmacy Electronically, [facility] (Now [facility]), Partial fill upon patient request if the prescription is for a schedule II opioid drug., 170, cm, 06/17/24 13:50:00 EDT, Height Start Date: 06/17/24 Status: Ordered Quantity: 90.0 Unit: tablet Repeat number: 4 atorvastatin 40 mg oral tablet See Instructions, TAKE 1 TABLET EVERY SUNDAY AND SUNDAY, # 26 tablet, 3 Refills, Maintenance, 02/21/24 11:35:00 AM EDT, [facility] Mail Delivery, 170, cm, 12/11/23 13:57:00 EDT, Height Start Date: 02/21/24 Status: Ordered Quantity: 26.0 Unit: tablet Repeat number: 1 clopidogrel 75 mg oral tablet 1, tablet, By Mouth, Daily, # 90 tablet, Refills 3, Maintenance, 02/21/24 11:35:00 AM EDT, Route to Pharmacy Electronically, [facility] Mail [facility], 170, cm, 12/11/23 13:57:00 EDT, Height Start Date: 02/21/24 Status: Ordered Quantity: 90.0 Unit: tablet Repeat number: 1 CoQ10 = 300 mg, By Mouth, Daily, 0 Refills, Maintenance, 12/13/15 7:13:13 AM EDT Start Date: 12/13/15 Status: Ordered Repeat number: 1 ferrous fumarate 325 mg oral tablet 1 tablet = 325 mg, By Mouth, Daily, # 30 tablet, 0 Refills, Maintenance, 08/19/24 3:43:00 PM EST, Tablet, Partial fill upon patient request if the prescription is for a schedule II opioid drug. Start Date: 08/19/24 Status: Ordered Quantity: 30.0 Unit: tablet Repeat number: 1 finasteride 5 mg oral tablet 1 tablet, By Mouth, Daily, # 90 tablet, 3 Refills, Maintenance, 02/21/24 11:35:00 AM EDT, [facility] Mail Delivery, 170, cm, 12/11/23 13:57:00 EDT, Height Start Date: 02/21/24 Status: Ordered Quantity: 90.0 Unit: tablet Repeat number: 1 Freestyle Lite Test Strips See Instructions, 2 times a day, # 100 each, Refills 3, Tot. Refills 3, Maintenance, CHECK BLOOD SUGARS ONCE A DAY DM TYPE 2 E11.9, 01/08/23 4:54:00 PM EDT, Compound, 170, cm, 12/25/22 10:21:00 EDT, Height Start Date: 01/08/23 Status: Ordered Quantity: 100.0 Unit: each Repeat number: 4 Indication: Type 1 diabetes mellitus without complications furosemide 20 mg oral tablet 20 mg, 1, tablet, By Mouth, Daily, # 90 tablet, Refills 3, Tot. Refills 3, Maintenance, 07/21/24 9:37:00 AM EDT, Route to Pharmacy Electronically, [facility]/pharmacy #[id number], Partial fill upon patient request if the prescription is for a schedule II opioid drug., 170, cm, 06/17/24 14:13:00 EDT, Height Start Date: 07/21/24 Status: Ordered Quantity: 90.0 Unit: tablet Repeat number: 4 lisinopril 20 mg oral tablet 1, tablet, By Mouth, Daily, # 90 tablet, Refills 3, Tot. Refills 3, Maintenance, 08/19/24 3:08:00 PM EST, Route to Pharmacy Electronically, [facility] (Now [facility]), 170, cm, 08/19/24 14:57:00 EST, Height Start Date: 08/19/24 Status: Ordered Quantity: 90.0 Unit: tablet Repeat number: 4 metFORMIN 500 mg oral tablet 1 tablet, By Mouth, 2 times a day, # 180 tablet, 3 Refills, Maintenance, 11/16/23 2:01:00 PM EST, [facility] Mail Delivery, 170, cm, 05/28/23 14:17:00 EDT, Height Start Date: 11/16/23 Status: Ordered Quantity: 180.0 Unit: tablet Repeat number: 4 Multivitamin Tablet 1 tablet, By Mouth, Daily, 0 Refills, Maintenance, 12/13/15 7:12:56 AM EDT, Tablet Start Date: 12/13/15 Status: Ordered Repeat number: 1 pantoprazole 40 mg oral delayed release tablet 1 tablet, By Mouth, Daily, # 90 tablet, 3 Refills, Maintenance, 02/21/24 11:35:00 AM EDT, 170, cm, 12/11/23 13:57:00 EDT, Height Start Date: 02/21/24 Status: Ordered Quantity: 90.0 Unit: tablet Repeat number: 1 tamsulosin 0.4 mg oral capsule 1, capsule, By Mouth, Daily, # 90 capsule, Refills 3, Maintenance, 02/21/24 11:35:00 AM EDT, Route to Pharmacy Electronically, [facility] Mail Delivery, 170, cm, 12/11/23 13:57:00 EDT, Height Start Date: 02/21/24 Status: Ordered Quantity: 90.0 Unit: capsule Repeat number: 1 Vitamin B12 0 Refills, Maintenance, 02/20/22 2:11:00 PM EDT, Partial fill upon patient request if the prescription is for a schedule II opioid drug. Start Date: 02/20/22 Status: Ordered Repeat number: 1 Problem List Condition Confirmation Course Effective Dates Status H ealth Status Informant BPH (benign prostatic hyperplasia) Confirmed Active Stage 3a chronic kidney disease (CKD) Confirmed Active Mild nonproliferative diabetic retinopathy of both eyes Confirmed Active First degree heart block Confirmed Active History of bleeding peptic ulcer 2015 Confirmed Active HLD (hyperlipidemia) Confirmed Active HTN (hypertension) Confirmed Active Macrocytosis without anemia normal b12/folate/tsh 1 Confirmed Active Onychomycosis Confirmed Active Osteopenia bmd 2 Confirmed 05/02/18 Active Encounter for monitoring long-term proton pump inhibitor therapy Confirmed Active Peripheral artery disease Confirmed Active PA (psoriatic arthritis) Confirmed Active Urinary retention Confirmed Active 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 1normal b12/folate/vtsh 2frax 17/6.1 Vital Signs Most recent to oldest [Reference Range]: 1 2 3 Height 170 cm (08/19/24 3:35 PM) 170 cm (08/19/24 2:57 PM) 170 cm (08/19/24 2:51 PM) Weight 77.4 kg (08/19/24 2:51 PM) Oxygen Saturation [94-100 %] 99 % (08/19/24 2:51 PM) Pulse Rate [55-90 bpm] 75 bpm (08/19/24 2:51 PM) Body Mass Index [18.5-24.99 kg/m2] 26.78 kg/m2 *H* (08/19/24 2:51 PM) Blood Pressure [90-138/55-84 mm Hg] 149/79mm Hg *H* (08/19/24 3:35 PM) 165/80mm Hg *H* (08/19/24 2:57 PM) 181/85mm Hg *H* (08/19/24 2:51 PM) Temperature [96.8-100.4 DegF] 98.0 DegF (08/19/24 2:51 PM) Blood pressure sites Arm, left (08/19/24 3:35 PM) Arm, right (08/19/24 2:51 PM) Temperature Route Oral (08/19/24 2:51 PM) Weight Obtained Via Standing scale (08/19/24 2:51 PM) Social History Social History Type Response Smoking Status Former smoker; Other : quit 49 yr old; entered on: 04/25/18 Sex Sex Representation Male (finding) Patient Care team information Care Team Personnel Name: Omi Farrar MD Position: S Physician - Primary Care Member Role: PCP Address: [address] [place] [id number] Telecom: Care Team Related Persons Name: NEVAEH PHILLIPS Insurance Providers Guarantor name: MORGAN JACQUELINE Health Plan Information #: 1 Payer: MEDICARE PART B OUTPT Member Number: [id number] Policy Number: NA Group Number: NA Health Plan Information #: 2 Payer: MEDEX Member Number: [id number] Policy Number: NA Group Number: NA
--- OUTSIDE RECORDS SUMMARY | 2024-09-15 12:26 | XMS_ITS | Continuity of Care Document ---
Author Organization [facility] Ezra Vinod lt Address [address] [place] [address]- Care Team Providers Care Welder Plasma Arc Name Role Phone Leni VINSON, Omi Olivares Primary Care Physician [phone] [place] [facility] [place] 08[place] [facility] Adult [address] [place] [address]- Encounter Type: Triage Allergies, Adverse Reactions, Alerts Substance Criticality Severity [...] 2:12:00 PM EDT, Route to Pharmacy Electronically, [facility] (Now [facility]), Partial fill upon patient request if the prescription is for a schedule II opioid drug., 170, cm, 06/17/24 13:50:00 EDT, Height Start Date: 06/17/24 Status: Ordered Quantity: 90.0 Unit: tablet Repeat number: 4 atorvastatin 40 mg oral tablet See Instructions, TAKE 1 TABLET EVERY SUNDAY AND SUNDAY, # 26 tablet, 3 Refills, Maintenance, 02/21/24 11:35:00 AM EDT, [facility] Mail Delivery, 170, cm, 12/11/23 13:57:00 EDT, Height Start Date: 02/21/24 Status: Ordered Quantity: 26.0 Unit: tablet Repeat number: 1 clopidogrel 75 mg oral tablet 1, tablet, By Mouth, Daily, # 90 tablet, Refills 3, Maintenance, 02/21/24 11:35:00 AM EDT, Route to Pharmacy Electronically, [facility], 170, cm, 12/11/23 13:57:00 EDT, Height Start Date: 02/21/24 Status: Ordered Quantity: 90.0 Unit: tablet Repeat number: 1 CoQ10 = 300 mg, By Mouth, Daily, 0 Refills, Maintenance, 12/13/15 7:13:13 AM EDT Start Date: 12/13/15 Status: Ordered Repeat number: 1 finasteride 5 mg oral tablet 1 tablet, By Mouth, Daily, # 90 tablet, 3 Refills, Maintenance, 02/21/24 11:35:00 AM EDT, [facility] Mail Delivery, 170, cm, 12/11/23 13:57:00 EDT, [...] 9:37:00 AM EDT, [id number] Partial fill upon patient request if the prescription is for a schedule II opioid drug., 170, cm, 06/17/24 14:13:00 EDT, Height Start Date: 07/21/24 Status: Ordered Quantity: 90.0 Unit: tablet Repeat number: 4 lisinopril 20 mg oral tablet 1, tablet, By Mouth, Daily, # 90 tablet, Refills 3, Maintenance, 02/12/24 7:31:00 AM EDT, Route to Pharmacy Electronically, [facility] Mail Delivery, 170, cm, 12/11/23 13:57:00 EDT, Height Start Date: 02/12/24 Status: Ordered Quantity: 90.0 Unit: tablet Repeat number: 1 metFORMIN 500 mg oral tablet 1 tablet, By Mouth, 2 times a day, # 180 tablet, 3 Refills, Maintenance, 11/16/23 2:01:00 PM EST, [facility] Mail Delivery, 170, cm, 05/28/23 14:17:00 [...] 11:35:00 AM EDT, Route to Pharmacy Electronically, [facility] Mail Delivery, 170, cm, 12/11/23 13:57:00 EDT, [...] Active PA (psoriatic arthritis) Confirmed Active 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 1normal b12/folate/vtsh 2frax 17/03.1 Social History Social History Type Response Smoking Status Former smoker; Other : quit 49 yr old; entered on: 04/25/18 Sex Sex Representation Male (finding) Patient Care team information Care Team Personnel Name: Leni VINSON, Omi Olivares Position: S Physician - Primary Care Member Role: PCP Address: [address] [place] [id number] Telecom: Care Team Related Persons Name: NEVAEH PHILLIPS Insurance Providers Guarantor name: MORGAN JACQUELINE Health Plan Information #: 1 Payer: MEDICARE PART B OUTPT Member Number: NA Policy Number: NA Group Number: NA Health Plan Information #: 2 Payer: MEDEX Member Number: NA Policy Number: NA Group Number: NA
--- OUTSIDE RECORDS SUMMARY | 2024-09-15 12:26 | XMS_ITS | Continuity of Care Document ---
Author Organization [facility] Ezra Vinod lt Address [address] [place] [address]- Care Team Providers Care Corporate Travel Counselor Name Role Phone Leni VINSON, Omi Olivares Primary Care Physician [phone] Encounter [facility] Date(s): 07/17/24 - 08/16/24 [facility] Adult [address] [place] [address]- Encounter Type: Triage Allergies, Adverse Reactions, Alerts [...] 2:12:00 PM EDT, Route to Pharmacy Electronically, [facility] (Now [facility]), Partial fill upon patient request if the prescription is for a schedule II opioid drug., 170, cm, 06/17/24 13:50:00 EDT, Height Start Date: 06/17/24 Status: Ordered Quantity: 90.0 Unit: tablet Repeat number: 4 atorvastatin 40 mg oral tablet See Instructions, TAKE 1 TABLET EVERY SUNDAY AND SUNDAY, # 26 tablet, 3 Refills, Maintenance, 02/21/24 11:35:00 AM EDT, [facility] Mail [facility], 170, cm, 12/11/23 13:57:00 EDT, Height Start Date: 02/21/24 Status: Ordered Quantity: 26.0 Unit: tablet Repeat number: 1 clopidogrel 75 mg oral tablet 1, tablet, By Mouth, Daily, # 90 tablet, Refills 3, Maintenance, 02/21/24 11:35:00 AM EDT, Route to Pharmacy Electronically, [facility] Mail Delivery, 170, cm, [...] 3 Refills, Maintenance, 02/21/24 11:35:00 AM EDT, [facility] Mail Delivery, 170, cm, 12/11/23 13:57:00 EDT, [...] 9:37:00 AM EDT, [id number] Partial fill upon patient request if the prescription is for a schedule II opioid drug., 170, cm, 06/17/24 14:13:00 EDT, Height Start Date: 07/21/24 Status: Ordered Quantity: 90.0 Unit: tablet Repeat number: 4 lisinopril 20 mg oral tablet 1, tablet, By Mouth, Daily, # 90 tablet, Refills 3, Maintenance, 02/12/24 7:31:00 AM EDT, Route to Pharmacy Electronically, [facility] Mail Delivery, 170, cm, 12/11/23 13:57:00 EDT, Height Start Date: 02/12/24 Status: Ordered Quantity: 90.0 Unit: tablet Repeat number: 1 metFORMIN 500 mg oral tablet 1 tablet, By Mouth, 2 times a day, # 180 tablet, 3 Refills, Maintenance, 11/16/23 2:01:00 PM EST, [facility] Mail Delivery, 170, cm, [...] 11:35:00 AM EDT, Route to Pharmacy Electronically, [facility], 170, cm, 12/11/23 13:57:00 EDT, [...] - Primary Care Member Role: PCP Address: [address] [place] [id number] Telecom: Care Team Related Persons Name: NEVAEH PHILLIPS Insurance Providers Guarantor name: MORGAN JACQUELINE Health Plan Information #: 1 Payer: MEDICARE PART B OUTPT Member Number: NA Policy Number: NA Group Number: NA Health Plan Information #: 2 Payer: MEDEX Member Number: NA Policy Number: NA Group Number: NA
[2024-10-09 09:42] VITALS: BMI 26.8
--- NOTE | 2024-10-10 10:27 | P.CONAN_ITS ---
Documented by User: Nhung Starkey NP 10/10/24 10:28 HPI - Anesthesia Eval Consult details Narrative: 83yo M for Laser Ablation Prostate w/Green Light, Insertion Suprapubic Tube Plavix for PAD PMFSH Active Problems Active Problems: All Active Problems Bladder outlet obstruction (Acute) Bilateral hydronephrosis (Acute) Acute urinary retention (Acute) Calculus of cystic duct (Acute) Osteomyelitis (Acute) PAD (peripheral artery disease) (Acute) Past Medical History Medical History (Updated 10/09/24 @ 09:41 by Chel Burch RN) Nephropathy Anemia GERD (gastroesophageal reflux disease) CKD (chronic kidney disease) stage 3, GFR 30-59 ml/min Psoriatic arthritis Osteopenia Onychomycosis Mild nonproliferative diabetic retinopathy of both eyes Macrocytosis HLD (hyperlipidemia) History of bleeding peptic ulcer Closed traumatic brain injury BPH (benign prostatic hyperplasia) 1st degree AV block PAD (peripheral artery disease) Skin ulcer of left great toe Hypertension Type 2 diabetes mellitus Diabetes PSA (psoriatic arthritis) Surgical History Surgical History (Updated 10/13/24 @ 08:10 by Kaelyn Weeks RN) Hx of tonsillectomy Hx of cholecystectomy History of esophagogastroduodenoscopy (EGD) H/O colonoscopy Hx of inguinal hernia repair History of atherectomy Social History Social History Household Members: Family Household Members Other:: 1 Housing: House Are you a primary lawn care specialist to a significant other at home: No Do you presently have visiting nurse or other home services: No Alcohol intake: former Comment: 1 assist with walker Patient Tobacco Use Status: Former Tobacco user Tobacco use type: Cigarette Cigarette Packs Per Day: 0.5 Cigarettes Per Day: 10.0 Years Smoked: 15 Smoked in Last 30 Days: No e-Cigarette/Vaping Use: Never Used Second Hand Smoke Exposure: No Use of substances other than those prescribed or required for medical reasons: No Have you been hit, kicked, punched, or otherwise hurt by someone within the past year? If so, by whom?: No Are you DNR?: No Advance Directives: No Advance Directives Information Provided: Yes (Daughter Chanel (per patient)) Advance Directives on File: No (Not on file) Advance Directives Date on File: 10/10/22 Recently lost weight without trying: No How much weight loss: Not applicable Eating poorly because of decreased appetite: No Nutrition screen score: 0 Nutrition Risks: No Nutritional Risk Poor oral hygiene: Yes (missing all top teeth) service: No Current occupational status: retired Meds Allergies Allergy/AdvReac Type Severity Reaction Status Date / Time clindamycin [From CLEOCIN] Allergy Severe BLACK STOOL Verified 10/13/24 08:11 Sulfa (Sulfonamide Allergy Intermediate Swelling Verified 10/13/24 08:11 Antibiotics) atorvastatin Allergy Unknown Verified 10/13/24 08:11 Home Medications ?Medication ?Instructions ?Recorded ?Confirmed ?Last Taken ?Type metformin 500 mg tablet 500 mg PO BID 06/30/20 10/13/24 10/12/24 History multivitamin 1 tab PO DAILY@1200 06/30/20 10/13/24 06/23/24 History atorvastatin 40 mg tablet 40 mg PO MOTH@1800 10/10/22 10/13/24 06/23/24 History cyclosporine 0.05 % eye drops in a 1 drp ophthalmic (eye) Q12H 10/10/22 10/13/24 06/23/24 History dropperette (Restasis) pantoprazole 40 mg tablet,delayed 40 mg PO DAILY 06/24/24 10/13/24 10/13/24 History release amlodipine 5 mg tablet 5 mg PO DAILY 06/27/24 10/13/24 10/13/24 History lisinopril 20 mg tablet 20 mg PO DAILY 10/09/24 10/13/24 10/12/24 History Exam Height,Weight and Vital Signs: Height 5 ft 6.93 in Weight 77.4 kg Narrative Narrative: EKG 07/2024 Vent. Rate : 065 BPM Atrial Rate : 065 BPM P-R Int : 294 ms QRS Dur : 144 ms QT Int : 410 ms P-R-T Axes : 000 -75 013 degrees QTc Int : 426 ms Sinus rhythm with 1st degree A-V block Left axis deviation Right bundle branch block Abnormal ECG When compared with ECG of 24-JUN-2024 12:54, Premature supraventricular complexes are no longer Present QT has shortened Assessment and Plan Assessment Anesthesia Assessment: Chart Reviewed Documented by User: Sulaiman Mcgraw MD 10/13/24 09:45 [facility] Past Medical History Medical History (Updated 10/09/24 @ 09:41 by Chel Burch RN) Nephropathy Anemia GERD (gastroesophageal reflux disease) CKD (chronic kidney disease) stage 3, GFR 30-59 ml/min Psoriatic arthritis Osteopenia Onychomycosis Mild nonproliferative diabetic retinopathy of both eyes Macrocytosis HLD (hyperlipidemia) History of bleeding peptic ulcer Closed traumatic brain injury BPH (benign prostatic hyperplasia) 1st degree AV block PAD (peripheral artery disease) Skin ulcer of left great toe Hypertension Type 2 diabetes mellitus Diabetes PSA (psoriatic arthritis) Family History Family history of problems with anesthesia: No Surgical History Surgical History (Updated 10/13/24 @ 08:10 by Kaelyn Weeks RN) Hx of tonsillectomy Hx of cholecystectomy History of esophagogastroduodenoscopy (EGD) H/O colonoscopy Hx of inguinal hernia repair History of atherectomy History of Problems with Anesthesia: No Social History Social History Household Members: Family Household Members Other:: 1 Housing: House Are you a primary lawn care specialist to a significant other at home: No Do you presently have visiting nurse or other home services: No Alcohol intake: former Comment: 1 assist with walker Patient Tobacco Use Status: Former Tobacco user Tobacco use type: Cigarette Cigarette Packs Per Day: 0.5 Cigarettes Per Day: 10.0 Years Smoked: 15 Smoked in Last 30 Days: No e-Cigarette/Vaping Use: Never Used Second Hand Smoke Exposure: No Use of substances other than those prescribed or required for medical reasons: No Have you been hit, kicked, punched, or otherwise hurt by someone within the past year? If so, by whom?: No Are you DNR?: No Advance Directives: No Advance Directives Information Provided: Yes (Daughter Chanel (per patient)) Advance Directives on File: No (Not on file) Advance Directives Date on File: 10/10/22 Recently lost weight without trying: No How much weight loss: Not applicable Eating poorly because of decreased appetite: No Nutrition screen score: 0 Nutrition Risks: No Nutritional Risk Poor oral hygiene: Yes (missing all top teeth) service: No Current occupational status: retired Meds Allergies Allergy/AdvReac Type Severity Reaction Status Date / Time clindamycin [From CLEOCIN] Allergy Severe BLACK STOOL Verified 10/13/24 08:11 Sulfa (Sulfonamide Allergy Intermediate Swelling Verified 10/13/24 08:11 Antibiotics) atorvastatin Allergy Unknown Verified 10/13/24 08:11 Home Medications ?Medication ?Instructions ?Recorded ?Confirmed ?Last Taken ?Type metformin 500 mg tablet 500 mg PO BID 06/30/20 10/13/24 10/12/24 History multivitamin 1 tab PO DAILY@1200 06/30/20 10/13/24 06/23/24 History atorvastatin 40 mg tablet 40 mg PO MOTH@1800 10/10/22 10/13/24 06/23/24 History cyclosporine 0.05 % eye drops in a 1 drp ophthalmic (eye) Q12H 10/10/22 10/13/24 06/23/24 History dropperette (Restasis) pantoprazole 40 mg tablet,delayed 40 mg PO DAILY 06/24/24 10/13/24 10/13/24 History release amlodipine 5 mg tablet 5 mg PO DAILY 06/27/24 10/13/24 10/13/24 History lisinopril 20 mg tablet 20 mg PO DAILY 10/09/24 10/13/24 10/12/24 History Exam Airway Mallampati Class: II TM Dist: <=3cm Neck ROM: Full Denture: Upper Partial: Lower Heart: ok Lungs: ok Assessment and Plan Assessment Anesthesia Assessment: Anesthesia Plan Discussed Final Anesthetic Review Family History of Problems with Anesthesia: No History of Problems with Anesthesia: No NPO: Yes ASA Class: III Final Preanesthetic Review: No Changes in Pt Med Stat, Meds/Allgs Chart Reviewed, Consent Obtained/Reviewed and Anes Risks/Benef Reviewed Patient Risk: High Procedure Risk: Low Anesthetic Plan Anesthetic Plan: GA and Agree w/ Assess. and Plan Disposition: Standard PACU
[2024-10-13] VITALS (16 sets, daily range): BP systolic 81–131; BP diastolic 40–61; PULSE 56–74; RESP 16–20; TEMP 36.3–36.9; O2SAT 94–100; BMI 25.8
--- OUTSIDE RECORDS SUMMARY | 2024-10-13 07:29 | XMS_ITS | Continuity of Care Document ---
Author Organization [facility] Ezra Vinod lt Address [address] [place] [address]- Care Team Providers Care Blocker And Sewer Name Role Phone Leni VINSON, Omi Olivares Primary Care Physician [phone] Encounter [facility] Date(s): 09/05/24 - 10/05/24 [facility] Adult [address] [place] [address]- Encounter Type: Triage Allergies, Adverse Reactions, Alerts [...] 2:12:00 PM EDT, Route to Pharmacy Electronically, [facility] (Now [facility]), Partial fill upon patient request if the prescription is for a schedule II opioid drug., 170, cm, 06/17/24 13:50:00 EDT, Height Start Date: 06/17/24 Status: Ordered Quantity: 90.0 Unit: tablet Repeat number: 4 atorvastatin 40 mg oral tablet See Instructions, TAKE 1 TABLET EVERY SUNDAY AND SUNDAY, # 26 tablet, 3 Refills, Maintenance, 02/21/24 11:35:00 AM EDT, [facility] Mail Delivery, 170, cm, 12/11/23 13:57:00 EDT, Height Start Date: 02/21/24 Status: Ordered Quantity: 26.0 Unit: tablet Repeat number: 1 clopidogrel 75 mg oral tablet 1, tablet, By Mouth, Daily, # 90 tablet, Refills 3, Maintenance, 02/21/24 11:35:00 AM EDT, Route to Pharmacy Electronically, [facility] Mail Delivery, 170, cm, 12/11/23 [...] 3 Refills, Maintenance, 02/21/24 11:35:00 AM EDT, [facility] Mail Delivery, 170, cm, 12/11/23 13:57:00 EDT, [...] 9:37:00 AM EDT, Route to Pharmacy Electronically, [facility]/pharmacy #[id number], Partial fill upon patient request if the prescription is for a schedule II opioid drug., 170, cm, 06/17/24 14:13:00 EDT, Height Start Date: 07/21/24 Status: Ordered Quantity: 90.0 Unit: tablet Repeat number: 4 lisinopril 20 mg oral tablet 1, tablet, By Mouth, Daily, # 90 tablet, Refills 3, Tot. Refills 3, Maintenance, 08/19/24 3:08:00 PM EST, Route to Pharmacy Electronically, [facility] (Now [facility]), 170, cm, 08/19/24 14:57:00 EST, Height Start Date: 08/19/24 Status: Ordered Quantity: 90.0 Unit: tablet Repeat number: 4 metFORMIN 500 mg oral tablet 1 tablet, By Mouth, 2 times a day, # 180 tablet, 3 Refills, Maintenance, 11/16/23 2:01:00 PM EST, [facility] Mail Delivery, 170, cm, 05/28/23 [...] 11:35:00 AM EDT, Route to Pharmacy Electronically, [facility] Mail Delivery, 170, cm, 12/11/23 [...] with nephropathy Confirmed Active 1normal b12/folate/vtsh 2frax /.1 Social History Social History Type Response Smoking Status Former smoker; Other : quit 49 yr old; entered on: 04/25/18 Sex Sex Representation Male (finding) Patient Care team information Care Team Personnel Name: Leni VINSON, Omi Olivares Position: [facility] Physician - Primary Care Member Role: PCP Address: [address] [place] [address]- Telecom: Care Team Related Persons Name: NEVAEH PHILLIPS Insurance Providers Guarantor name: MORGAN JACQUELINE Health Plan Information #: 1 Payer: MEDICARE PART B OUTPT Member Number: NA Policy Number: NA Group Number: NA Health Plan Information #: 2 Payer: MEDEX Member Number: NA Policy Number: NA Group Number: NA
--- OUTSIDE RECORDS SUMMARY | 2024-10-13 07:29 | XMS_ITS | Continuity of Care Document ---
Author Organization [facility] Ezra Vinod lt Address [address] [place] [address]- Care Team Providers Care Wire Drawing Machine Operator Name Role Phone Omi Farrar MD Primary Care Physician Encounter [facility] Date(s): 08/27/24 - 09/26/24 [facility] Adult [address] [place] [address]- Encounter Type: Triage Allergies, Adverse Reactions, Alerts [...] 2:12:00 PM EDT, Route to Pharmacy Electronically, [facility] (Now [facility]), Partial fill upon patient request if the prescription is for a schedule II opioid drug., 170, cm, 06/17/24 13:50:00 EDT, Height Start Date: 06/17/24 Status: Ordered Quantity: 90.0 Unit: tablet Repeat number: 4 atorvastatin 40 mg oral tablet See Instructions, TAKE 1 TABLET EVERY SUNDAY AND SUNDAY, # 26 tablet, 3 Refills, Maintenance, 02/21/24 11:35:00 AM EDT, [facility] Mail Delivery, 170, cm, 12/11/23 13:57:00 EDT, Height Start Date: 02/21/24 Status: Ordered Quantity: 26.0 Unit: tablet Repeat number: 1 clopidogrel 75 mg oral tablet 1, tablet, By Mouth, Daily, # 90 tablet, Refills 3, Maintenance, 02/21/24 11:35:00 AM EDT, Route to Pharmacy Electronically, [facility] Mail Delivery, 170, cm, 12/11/23 13:57:00 [...] 3 Refills, Maintenance, 02/21/24 11:35:00 AM EDT, [facility] Mail Delivery, 170, cm, 12/11/23 13:57:00 [...] 9:37:00 AM EDT, Route to Pharmacy Electronically, [facility]/pharmacy #[id number], Partial fill upon patient request if the prescription is for a schedule II opioid drug., 170, cm, 06/17/24 14:13:00 EDT, Height Start Date: 07/21/24 Status: Ordered Quantity: 90.0 Unit: tablet Repeat number: 4 lisinopril 20 mg oral tablet 1, tablet, By Mouth, Daily, # 90 tablet, Refills 3, Tot. Refills 3, Maintenance, 08/19/24 3:08:00 PM EST, Route to Pharmacy Electronically, [facility] (Now [facility]), 170, cm, 08/19/24 14:57:00 EST, Height Start Date: 08/19/24 Status: Ordered Quantity: 90.0 Unit: tablet Repeat number: 4 metFORMIN 500 mg oral tablet 1 tablet, By Mouth, 2 times a day, # 180 tablet, 3 Refills, Maintenance, 11/16/23 2:01:00 PM EST, [facility] Mail Delivery, 170, cm, 05/28/23 14:17:00 [...] 11:35:00 AM EDT, Route to Pharmacy Electronically, [facility] Mail Delivery, 170, cm, 12/11/23 13:57:00 [...] with nephropathy Confirmed Active 1normal b12/folate/vtsh 2frax 17/.1 Social History Social History Type Response Smoking Status Former smoker; Other : quit 49 yr old; entered on: 04/25/18 Sex Sex Representation Male (finding) Patient Care team information Care Team Personnel Name: Leni VINSON, Omi Olivares Position: [facility] Physician - Primary Care Member Role: PCP Address: [address] [place] [phone]- Telecom: Care Team Related Persons Name: NEVAEH PHILLIPS Insurance Providers Guarantor name: MORGAN JACQUELINE Health Plan Information #: 1 Payer: MEDICARE PART B OUTPT Member Number: NA Policy Number: NA Group Number: NA Health Plan Information #: 2 Payer: MEDEX Member Number: NA Policy Number: NA Group Number: NA
[2024-10-13 08:26] LABS: Glucose, Whole Blood 94 mg/dL (60-115)
[2024-10-13] MEDS: Lactated Ringers 1,000 ML 100 ML IVCONT (09:05)
--- NOTE | 2024-10-13 09:31 | MHC.SHP ---
Pre-Procedural Eval Section A - 24 Hr Update-Section A only Date of Service: 10/13/24 The patient is an INPATIENT: No Changes since office visit: No Cold of Flu in the past 2 weeks, No New Medical Problems, No Changes in Medication and No Patient answered all questions The patient has been examined within 24 hours of the surgical procedure. The History & Physical has been completed within 30 days and I have reviewed it.: Yes Section B - Complete if H&P > 30 days Chief Complaint: Bladder-neck obstruction Details of Present Illness: Cystoscopy, suprapubic tube placement, GreenLight laser prostate Allergies: Allergies Allergy/AdvReac Type Severity Reaction Status Date / Time clindamycin [From CLEOCIN] Allergy Severe BLACK STOOL Verified 10/13/24 08:11 Sulfa (Sulfonamide Allergy Intermediate Swelling Verified 10/13/24 08:11 Antibiotics) atorvastatin Allergy Unknown Verified 10/13/24 08:11 Plan I have reviewed the history and physical and performed a pertinent physical examination on my patient. No changes have occurred unless specified. Time Spent With Patient Time: Total time managing care of this patient today ____ minutes.
--- NOTE | 2024-10-13 11:07 | W.PM.OPN ---
Operative Note Operative Note Date of Service: 10/13/24 Narrative: PreOperative Diagnosis: Bladder outlet obstruction Post Operative Diagnosis: Bladder outlet obstruction Procedure: GreenLight Laser Enucleation of the prostate CPT 23533 Surgeon: Dr Pedro Medina Anesthesia: General History of bladder outlet obstruction. Treated with alpha-diamond and other medications. Still with symptoms. On cystoscopy in office has [trilobar prostate] [tight bladder neck]. Recommendation for prostate procedure with laser enucleation of prostate. Risks and benefits have been discussed. Focus was placed on development of retrograde ejaculation which is a normal part of this procedure. Procedure: After informed consent was verified the patient was brought to the operating room and placed in a supine position. Anesthesia was administered per protocol. Patient was placed in modified dorsal lithotomy position and prepped and draped in a sterile fashion. Safety pause time-out was confirmed. Antibiotics have been given. A 22 Albanian cystoscope was inserted per urethra. Bladder was examined in its entirety. No abnormalities seen. Air bubble was located at the dome of the bladder. A finder needle was inserted 2 fingerbreaths above the symphysis pubis on the abdomen into the bladder.? The needle was visualized in the bladder via cystoscopy. Local anesthetic was infiltrated subcutaneously around the needle introduction site. A small, 1cm horizontal incision was made.? A trocar introducer was advanced through the abdominal wall into the bladder under visualization. The obturator was removed and a 16 Fr loza catheter placed. 7cc was used to inflate the balloon. The external portion of the trocar was removed. Dressing was placed, the bladder was emptied, and a drainage bag was attached. A Twenty-four Albanian laser cystoscope was inserted per urethra. No abnormalities were found of the anterior and bulbar urethra. The prostatic urethra shows trilobar hypertrophy. The bladder was examined and both ureteric orifices were seen in their normal positions away from the area of interest. Bladder trabeculation - Grade 2. Using a GreenLight laser with settings of 80 avalos incisions were made at the 5 and 7 o'clock position. The incisions were taken down from the bladder neck down to the level of the veru. These were gradually deepened in order to define the lateral aspects of the median lobe area. Once clearly defined they will also extended in the lateral directions in order to create a deep groove. The median lobe was then ablated and enucleated tissue released into the bladder with the laser power increased to 120W. Once the median lobe area had been cleared attention was directed to the lateral lobes. Starting with the patient's left lateral lobe. First the 05:00 o'clock groove was further developed. This was moved in the lateral direction to undermine the tissue on the lateral side running from the bladder neck to the prostate apex. The ureteric orifice was used to guide incisions. Focus was then placed on the laser at the 1 o'clock position to developing a secondary groove down to the level of bladder fibers. The creation of a second deep groove defined a segment of intervening tissue similar to a slice of orange. At the apex of the prostate the 2 grooves were linked the us releasing the intervening tissue. This tissue was then removed with a combination of enucleation and ablation working from the apex toward the bladder neck. A similar procedure was repeated on the patient's right-hand side. The only differences being the position of the lateral groove at he 7 o'clock position and the secondary groove at the 11 o'clock position, Otherwise the procedure was developed in a mirror fashion. After the majority of tissue had been debulked remnant tissue was ablated with the side fire laser and the curve of the prostate followed up each side wall clearly defining the anterior remnant strip that remained between the 11 and 1 o'clock positions. In this case the anterior tissue protruded into the prostatic fossa and was partially ablated with the laser When this was had been completed debris and pieces of prostate were removed from the bladder with irrigation. Both ureteric orifices were reviewed again in shown to be patent in away from any areas of energy damage. The apical area was reviewed in any stray ooze was controlled. A 22 Albanian 30 cc balloon Loza catheter was placed over a stylet into the bladder. Clear efflux was obtained upon irrigation with a Adrian piston syringe. 30 cc was placed in the balloon and gentle traction was placed. A snap was used to hold tension on the catheter to control bleeding during patient moved and transported. A drainage bag was placed. Once transportation is complete to the PACU the snap will be removed. The patient tolerated the procedure well, he was extubated in the operating and transferred in a stable condition to the recovery area. Total Power 136 kW Lasing time 19:58 Pathology: Prostate tissue Drains: Loza catheter
[2024-10-13] MEDS: Acetaminophen 325 MG TABLET 975 MG PO (11:10)
[2024-10-13] MEDS: fentaNYL citrate/PF 100 MCG/2 ML VIAL 50 MCG IVPUSH ×2 (11:35→11:54)
== END 2024-10-13 13:40 | disposition home or self-care (01) ==
PROVIDERS: PCP Internal Medicine; Visit Provider Urology
PROC: (CPT 52648; principal; 2024-10-13 10:20)
PROC: (CPT 51102; 2024-10-13 10:20)
DX: N40.1 Benign prostatic hyperplasia with lower urinary tract symptoms (principal); N32.0 Bladder-neck obstruction; R33.8 Other retention of urine; N13.30 Unspecified hydronephrosis; N32.89 Other specified disorders of bladder; E11.9 Type 2 diabetes mellitus without complications; I10 Essential (primary) hypertension; I44.0 Atrioventricular block, first degree; I73.9 Peripheral vascular disease, unspecified; L40.50 Arthropathic psoriasis, unspecified; Z88.2 Allergy status to sulfonamides; Z88.1 Allergy status to other antibiotic agents; Z98.890 Other specified postprocedural states
CPT/HCPCS: 52649; 82947; 88305; 88341; 88342; 88344; J1956; J2003; J2704; J2795; J3010

== ENCOUNTER → 2024-10-13 07:25 | Outpatient (BNV) | payer MEDICARE, SELFPAY | PROVIDERS: PCP Internal Medicine; Visit Provider Urology | DX: N32.0 Bladder-neck obstruction (principal) | CPT/HCPCS: 52649 ==

== ENCOUNTER → 2024-10-16 09:18 | Outpatient (BNVA) | payer MEDICARE, SELFPAY | PROVIDERS: PCP Internal Medicine; Visit Provider Urology | DX: N32.0 Bladder-neck obstruction (principal); Z46.6 Encounter for fitting and adjustment of urinary device; Z96.0 Presence of urogenital implants | CPT/HCPCS: 51700 ==

== ENCOUNTER 2024-10-25 14:21 | Inpatient (IN) | payer MEDICARE, SELFPAY ==
--- NOTE | ~2024-10-25 | CT_ITS ---
CLINICAL HISTORY: hematuria, ESTEPHANIA, ?calculi CT abdomen and pelvis without contrast Comparison: CT/CO/SR - CT ABDOMEN PELVIS W IV CON - 06/24/24 13:29 EDT Findings: There is minimal bibasilar atelectasis. Patient is status post cholecystectomy. There are unchanged stones/calcifications within the cystic duct stump. The liver, pancreas, spleen, and adrenal glands are unremarkable. There is mild bilateral hydroureter with no ureteral obstruction significantly improved from the prior CT. Kidneys are otherwise unremarkable. There is a suprapubic catheter in the bladder. There is diffuse bladder wall thickening. The bladder is not significantly distended.There is a small amount of irregularly-shaped of blood clot within the bladder roughly measuring up to 3 cm in size. The prostate is enlarged. There is colonic diverticulosis. The appendix is normal. The remainder of the gastrointestinal tract is unremarkable. There is a small fat containing left inguinal hernia. There are no enlarged lymph nodes. The aorta is normal in diameter. There are degenerative changes throughout the lumbar spine. 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 There is bony fusion of L4-5 and of T10-11. IMPRESSION: 1. Small amount of blood clot within the bladder. 2. Suprapubic catheter in the bladder, large prostate, and diffuse bladder wall thickening likely secondary to chronic bladder outlet obstruction. Cystitis contributing to bladder wall thickening is not excluded. 3. Mild bilateral hydroureter with no evidence of ureteral obstruction significantly improved from the prior CT. 4. Additional chronic findings as above. This document has been electronically signed by: Vaughn Edwards MD on 10/25/2024 20:43:12
[2024-10-25 14:52] VITALS: BP 122/57; PULSE 68; O2SAT 95
[2024-10-25 15:08] VITALS: BP 115/54; PULSE 68; RESP 18; TEMP 36.6; O2SAT 96
[2024-10-25 15:21] VITALS: BMI 25.8
--- OUTSIDE RECORDS SUMMARY | 2024-10-25 15:39 | XMS_ITS | Clinical Summary ---
Author Organization [facility] Facility Address [address] [place] [id number] Care Team Providers Care Evaporator Operator Name Role Phone Omi Farrar MD Primary Care Provider [phone] Social History Tobacco Use Types Packs/Day Years Used Date Smoking Tobacco: Never Assessed Sex and Gender Information Value Date Recorded Sex Assigned at Not on file Legal Sex Male 5:03 PM EST Gender Identity Not on file Sexual Orientation Not on file Plan of Treatment Health Maintenance Due Date Last Done Comments Diabetes: Hemoglobin A1C 10/21/2022 Diabetes: Ophthalmology Exam 10/21/2022 Diabetes: Pedal Pulse Checked 10/21/2022 Diabetes: Sensory Foot Exam 10/21/2022 Diabetes: Visual Foot Exam 10/21/2022 Influenza Vaccine (#1) 2024 06/19/2019 Pneumococcal Vaccine: 65+ Years Completed 08/06/2019, 07/04/2018, 07/04/2018 Hepatitis B Vaccine Aged Out No longe r eligible based on patient's age to complete this topic Insurance MEDICARE [facility] MEDICARE [facility] Care Teams Evaporator Operator Relationship Specialty Start Date End Date Omi Farrar MD [facility] [place] PCP - General Internal Medicine 10/18/22
--- NOTE | 2024-10-25 15:46 | ED.MALEGU ---
HPI - Male Genitourinary General Chief complaint: Urogenital-Male Stated complaint: HEMATURIA, PROCEDURE 10/13, NO OTHER COMPLAINTS Time Seen by Provider: 10/25/24 15:03 Source: patient and EMS Mode of arrival: EMS Limitations: no limitations History of Present Illness ED Provider: Roseanne Humphreys NP HPI Narrative: Patient is an 83-year-old male who presents emergency department via EMS coming from home for evaluation of suprapubic catheter with hematuria. He reports that suprapubic catheter was placed by Dr. Medina on 10/13/2024 after he underwent GreenLight laser enucleation of the prostate. He reports last night he started noticing dark red blood in the urine. Denies any trauma or injury to the site. He denies any abdominal or back pain with this. Denies any nausea, vomiting, fevers, chills. Reports that the catheter is otherwise has been functioning normally and still draining urine as expected. Related Data Home Medications ?Medication ?Instructions ?Recorded ?Confirmed metformin 500 mg tablet 500 mg PO BID 06/30/20 10/13/24 multivitamin 1 tab PO DAILY@1200 06/30/20 10/13/24 atorvastatin 40 mg tablet 40 mg PO MOTH@1800 10/10/22 10/13/24 cyclosporine 0.05 % eye drops in a 1 drp ophthalmic (eye) Q12H 10/10/22 10/13/24 dropperette (Restasis) pantoprazole 40 mg tablet,delayed 40 mg PO DAILY 06/24/24 10/13/24 release amlodipine 5 mg tablet 5 mg PO DAILY 06/27/24 10/13/24 lisinopril 20 mg tablet 20 mg PO DAILY 10/09/24 10/13/24 Previous Rx's ?Medication ?Instructions ?Recorded clopidogrel 75 mg tablet 75 mg PO DAILY #30 tabs 10/20/22 finasteride 5 mg tablet 5 mg PO DAILY #30 tabs 10/20/22 tamsulosin 0.4 mg capsule 0.4 mg PO BEDTIME #30 caps 10/20/22 mupirocin 2 % topical ointment 1 appl topical TID 14 days #22 07/07/24 grams furosemide 20 mg tablet 20 mg PO DAILY #5 tabs 07/11/24 ciprofloxacin HCl 250 mg tablet 250 mg PO DAILY 10 days #10 tabs 10/13/24 Allergies Allergy/AdvReac Type Severity Reaction Status Date / Time clindamycin [From CLEOCIN] Allergy Severe BLACK STOOL Verified 10/25/24 15:23 Sulfa (Sulfonamide Allergy Intermediate Swelling Verified 10/25/24 15:23 Antibiotics) atorvastatin Allergy Unknown Verified 10/25/24 15:23 Review of Systems Review of Systems: Yes all other systems are reviewed and are negative [facility] Past Medical History Attestation statement: The following information was validated with the patient. Source: old records reviewed Medical History (Updated 10/25/24 @ 20:51 by Ciera Sanchez PA-C) Nephropathy Anemia GERD (gastroesophageal reflux disease) CKD (chronic kidney disease) stage 3, GFR 30-59 ml/min Psoriatic arthritis Osteopenia Onychomycosis Mild nonproliferative diabetic retinopathy of both eyes Macrocytosis HLD (hyperlipidemia) History of bleeding peptic ulcer Closed traumatic brain injury BPH (benign prostatic hyperplasia) 1st degree AV block PAD (peripheral artery disease) Skin ulcer of left great toe Hypertension Type 2 diabetes mellitus Diabetes PSA (psoriatic arthritis) Surgical History Hx of tonsillectomy Hx of cholecystectomy History of esophagogastroduodenoscopy (EGD) H/O colonoscopy Hx of inguinal hernia repair History of atherectomy Social History Social History Household Members: Family Household Members Other:: 1 Housing: House Are you a primary field care advocate to a significant other at home: No Do you presently have visiting nurse or other home services: No Alcohol intake: former Comment: 1 assist with walker Patient Tobacco Use Status: Former Tobacco user Tobacco use type: Cigarette Cigarette Packs Per Day: 0.5 Cigarettes Per Day: 10.0 Years Smoked: 15 e-Cigarette/Vaping Use: Never Used Second Hand Smoke Exposure: No Advance Directives: No Advance Directives Information Provided: No Advance Directives Date on File: 10/10/22 service: No Current occupational status: retired Physical Exam Vital Signs: Vital Signs: Last Vital Signs Temp 97.9 F 10/25/24 15:08 Pulse 68 10/25/24 15:08 Resp 18 10/25/24 15:08 BP 115/54 L 10/25/24 15:08 Pulse Ox 96 10/25/24 15:08 O2 Del Method Room Air 10/25/24 15:08 BMI result Body Mass Index 25.8 Course Reevaluation(s) Reevaluation #1: CBC is without leukocytosis, has a miles anemia that does not meet transfusion criteria, no thrombocytopenia. No electrolyte derangement. Has a notable ESTEPHANIA with BUN of 117 and creatinine 2.47. Urinalysis with hematuria, positive nitrites, plan concerning for urinary tract infection. I suspect that the ESTEPHANIA is likely postrenal due to urinary tract infection however, given presence of blood, will obtain CT of the abdomen and pelvis to evaluate for obstructive uropathy/calculi/evidence of pyelo. Obtaining blood cultures and lactic acid at this time, patient received Rocephin as well as 1 L normal saline IV fluid, anticipating hospital admission. Time: 17:07 Reevaluation #2: I spoke with hospitalist service, Sam RAINEY regarding admission to medicine service, requesting consult to urology services he may very well be more appropriate for admission to Urology Service given his recent procedure and admission today. I spoke with Dr. Harish Rosales who feels it more appropriate that he be admitted to the hospitalist service given his ESTEPHANIA as he will require IV fluids in addition IV antibiotics. Consulted back to hospitalist service, will await CT of the abdomen and pelvis before admission. Urology did mentioned that if this reveals bilateral hydro this is likely chronic in nature as it was present prior to his procedure. Will sign outpatient to evening provider; Lilia RAINEY pending CT impression and admission Time: 18:36 Reevaluation #3: Daughter is present at bedside, she has made me aware at this time that patient has been reporting pain to the left lower extremity over the past 2 months. He states he feels it from his foot radiating up to the knee. Pain is intermittent. Has been using Tylenol but not with much frequency. States he has not sought evaluation for this yet because he was focused on his prostate. He denies any redness, swelling, warmth of the leg, or cold sensation. No numbness or tingling. On review, the extremity is warm, he is able to move the digits in the ankle, there past tenderness, no swelling. He has mild pitting edema to the dorsum of the foot, unable to palpate pulses but does have Doppler signal to DP/ PT pulse. At this time have lower suspicion for DVT/arterial occlusion. Likely secondary to his known peripheral vascular disease. No precipitating injury and full range of motion to foot ankle and knee, unlikely to have acute fracture. He does have a history of osteomyelitis to the left great toe last year he underwent popliteal revascularization. No open wounds or lesions on the foot at this time. Trialing acetaminophen Time: 19:01 Additional Reevaluation(s): Patient's CT scan does not show any acute findings. This is consistent with cystitis, some blood clot in the bladder and an enlarged prostate which the patient is being followed by Urology for. Previous provider has already discussed with Urology in recommends admission to the medical service for ESTEPHANIA. Will discuss with the hospitalist Medications Administered Discontinued Medications Generic Name Dose Route Start Last Admin Trade Name Freq PRN Reason Stop Dose Admin Acetaminophen 975 mg 10/25/24 19:00 10/25/24 19:45 Acetaminophen 325 Mg Tablet PO 10/25/24 19:01 975 mg ONCE ONE Administration Ceftriaxone Sodium 1 gm 10/25/24 17:06 10/25/24 18:49 Ceftriaxone Sodium 1 Gm Vial IVPUSH 10/25/24 17:07 1 gm ONCE ONE Administration Sodium Chloride 1,000 mls @ 999 mls/hr 10/25/24 17:15 10/25/24 19:46 Ns IV 10/25/24 18:15 Infused .Q1H1M MICHAEL Infusion Medical Decision Making Medical Decision Making [facility] Narrative: Patient is an 83-year-old male with past medical history of bladder outlet obstruction, bilateral hydronephrosis, osteomyelitis, PAD, anemia, GERD, CKD, hyperlipidemia, hypertension, type 2 diabetes who presents emergency department for evaluation of hematuria noted in the suprapubic catheter drainage bag with onset last night without any precipitating injury. He denies any pain at the insertion site of the catheter. Suprapubic catheter was placed surgically by Dr. Medina on 10/13/2024, I myself remove the initial postsurgical dressing, the insertion site is free from redness, swelling, or purulent drainage. No tenderness upon palpation. Upon draining the catheter bag there does not appear to be any appearing clots it is present, there is a dark red hue to the urine. It is not malodorous. He is noted to be on Plavix but no anticoagulants. Abdominal examination is benign. Will obtain CBC to evaluate for leukocytosis/ anemia, CMP to evaluate for abnormal electrolytes /abnormal renal function/ abnormal hepatic function, coags, and Urinalysis. Differential Diagnosis Differential Diagnoses: The differential diagnosis associated with the presentation includes (See narrative above) Admission/Observation Consideration of admission/observation: Escalation of care including admission/observation considered Lab Data 10/25/24 16:14 10/25/24 16:14 Labs: Lab Results 10/25/24 10/25/24 Range/Units 16:14 18:20 WBC 10.2 (4.8-10.8) X10*3/uL RBC 3.29 L (4.60-5.80) X10*6/uL Hgb 10.9 L (14.0-18.0) g/dl Hct 31.4 L (42.0-52.0) % MCV 95.4 (80.0-98.0) fL MCH 33.1 H (27.0-33.0) pg MCHC 34.7 (31.0-36.0) g/dl RDW 11.9 (11.0-16.0) % Plt Count 236 (160-400) X10*3/uL MPV 11.5 (9.4-12.4) fL Immature Gran % (Auto) 0.5 H (0.0-0.4) % Neut % (Auto) 62.4 (45-73) % Lymph % (Auto) 24.1 (20-40) % [place] % (Auto) 10.1 (2-11) % Eos % (Auto) 2.8 (0-4) % Baso % (Auto) 0.1 (0-2) % Lymph # (Auto) 2.5 (1.2-4.9) X10*3/uL [place] # (Auto) 1.0 (0.1-1.2) X10*3/uL Eos # (Auto) 0.3 (0.0-0.4) X10*3/uL Baso # (Auto) 0.0 (0.0-0.2) X10*3/uL Abs Immat Gran (auto) 0.05 H (0.00-0.03) X10*3/uL Absolute Neuts (auto) 6.4 (2.0-8.3) x10*3/uL Absolute Nucleated RBC 0.000 (0.0-0.012) X10*3/uL Nucleated RBC % (auto) 0.0 (0.0-0.2) /100WBC Sodium 136 (135-145) mmol/L Potassium 4.9 (3.3-5.1) mmol/L Chloride 103 (96-108) mmol/L Carbon Dioxide 24 (22-29) mmol/L Anion Gap 14 (12-20) BUN 117 H (9-16) mg/dL Creatinine 2.47 H (0.5-1.4) mg/dL Estim Creat Clear Calc 22.6 Estimated GFR 25 Random Glucose 102 (60-115) mg/dL Lactic Acid 1.7 (0.5-2.0) mmol/L Calcium 9.5 (8.4-10.2) mg/dL Total Bilirubin 0.6 (0.0-1.0) mg/dL AST 23 (5-37) U/L ALT 11 (0-40) U/L Alkaline Phosphatase 82 (39-117) U/L Total Creatine Kinase 50 (38-174) U/L Total Protein 7.4 (6.5-8.0) g/dL Albumin 4.0 (3.5-5.0) g/dL Urine Color PINK Urine Appearance Clear Urine pH 5.0 (5.0-9.0) Ur Specific [place] 1.020 (1.005-1.025) Urine Protein 300 (3+) H (Neg-Trace) mg/dL Urine Glucose (UA) Negative (Negative) mg/dL Urine Ketones Negative (Negative) mg/dL Urine Blood Large (3+) H (Negative) Urine Nitrite Positive H (Negative) Ur Leukocyte Esterase Moderate (2+) H (Negative) Urine RBC >20 H (0-2) /HPF Urine WBC 21-50 (0-5) /HPF Ur Squamous Epith Cells 0-2 (0-2) /HPF Urine Bacteria 1+ (None Seen) Hyaline Casts 0-2 (0-2) /LPF Independent Historian Clinical information obtained from an independent historian. History obtained from or confirmed by: EMS External Record Review External record reviewed: Inpatient record and Outpatient record Discharge Plan Discharge Clinical Impression: Urinary tract infection, ESTEPHANIA (acute kidney injury) Patient Disposition: Admitted As Inpatient Print Language: Sinhala
[2024-10-25 16:21] LABS: MANUAL DIFF FLAG NO
[2024-10-25 16:25] LABS: Basophils Percent Auto 0.1 % (0-2); Eosinophils Absolute Auto 0.3 X10*3/uL (0.0-0.4); Eosinophils Percent Auto 2.8 % (0-4); Hematocrit 31.4 % (42.0-52.0); Hemoglobin 10.9 g/dl (14.0-18.0); Imm Gran Abs Auto 0.05 X10*3/uL (0.00-0.03); Imm Gran Pct Auto 0.5 % (0.0-0.4); Lymphocytes Absolute Auto 2.5 X10*3/uL (1.2-4.9); Lymphocytes Percent Auto 24.1 % (20-40); Mean Corpuscular HGB Conc 34.7 g/dl (31.0-36.0); Mean Corpuscular Hemoglobin 33.1 pg (27.0-33.0); Mean Corpuscular Volume 95.4 fL (80.0-98.0); Mean Platelet Volume 11.5 fL (9.4-12.4); Monocytes Percent Auto 10.1 % (2-11); Neutrophils Absolute Auto 6.4 x10*3/uL (2.0-8.3); Neutrophils Percent Auto 62.4 % (45-73); Platelet Count 236 X10*3/uL (160-400); Red Blood Count 3.29 X10*6/uL (4.60-5.80); Red Cell Distribution Width 11.9 % (11.0-16.0); White Blood Count 10.2 X10*3/uL (4.8-10.8)
[2024-10-25 16:37] LABS: Appearance Urine Clear; Glucose Urine UA Negative (Negative); UMIC TRIGGER UACC YES; Urine Blood Large (3+) (Negative); Urine Ketones Negative (Negative)
[2024-10-25 16:39] LABS: Alanine Aminotransferase 11 U/L (0-40); Alkaline Phosphatase 82 U/L (39-117); Anion Gap 14 (12-20); Aspartate Amino Transferase 23 U/L (5-37); Bilirubin Total 0.6 mg/dL (0.0-1.0); Blood Urea Nitrogen 117 mg/dL (9-16); Calcium 9.5 mg/dL (8.4-10.2); Carbon Dioxide 24 mmol/L (22-29); Chloride 103 mmol/L (96-108); Creatinine Clr Calc Pharmacy 22.6; Estimated Glomerular Filt Rate 25; Glucose Random 102 mg/dL (60-115); Potassium 4.9 mmol/L (3.3-5.1); Sodium 136 mmol/L (135-145); Total Protein 7.4 g/dL (6.5-8.0)
[2024-10-25 16:43] LABS: Color Urine PINK; Leukocyte Esterase Urine Moderate (2+) (Negative); Nitrite Urine Positive (Negative); Urine Protein 300 (3+) mg/dL (Neg-Trace)
[2024-10-25 16:44] LABS: Bacteria Urine 1+ (None Seen); Hyaline Casts Urine 0-2 /LPF (0-2); RBC Urine >20 /HPF (0-2); Squamous Epithelial Cell Urine 0-2 /HPF (0-2); UACC Culture Trigger YES; WBC Urine 21-50 /HPF (0-5)
[2024-10-25] MEDS: 0.9 % Sodium Chloride 1,000 ML 999 ML IV (18:25)
[2024-10-25 18:43] LABS: Lactic Acid 1.7 mmol/L (0.5-2.0)
[2024-10-25] MEDS: cefTRIAXone sodium 1 GM VIAL IVPUSH (18:49)
[2024-10-25] MEDS: Acetaminophen 325 MG TABLET 975 MG PO (19:45)
--- NOTE | 2024-10-25 20:44 | PM.IMHP ---
History of Present Illness Date of Service: 10/25/24 Attending physician on admission: Sydnie Mejia Chief Complaint: gross hematuria Patient is an 83-year-old male with a past medical history significant for bladder outlet obstruction status post GreenLight prostate treatment on 10/13/2024 with suprapubic catheter placement, chronic bilateral hydronephrosis, osteomyelitis, PAD, anemia, GERD, CKD, HLD, HTN, type 2 diabetes, who presented to the ED due to hematuria since last night. He reports dark red urine without any clots. Catheter is draining well. Denies any abdominal pain, nausea or vomiting. He does have chronic constipation but reports he was able to have a bowel movement today with good relief. He has not taken his Plavix since the 7th due to the procedure. It is questionable whether he is taking baby aspirin daily as he reports he only asks for this as needed but his med list by his son reports daily use. He also briefly mentions left lower extremity pain which has been persistent for at least the past 2 months. No trauma or injuries known. It is located on the anterior portion of his stringer. Review of Systems Constitutional: Constitutional: Denies body ache(s), Denies chills, Denies fatigue, Denies fever(s) and Denies headache(s) Eyes: Eyes: Denies change in vision ENT: Denies headache(s), Denies nasal congestion, Denies nasal discharge and Denies sore throat Cardiovascular: Cardiovascular: Denies chest pain, Denies rapid heart rate, Denies leg edema, Denies lightheadedness, Denies dyspnea and Denies dyspnea on exertion Respiratory: Respiratory: Denies chest congestion, Denies cough, Denies dyspnea, Denies dyspnea on exertion and Denies wheezing Gastrointestinal: Gastrointestinal: Reports constipation (chronic), Denies diarrhea, Denies nausea and Denies vomiting Genitourinary: Genitourinary: Reports hematuria Musculoskeletal: Musculoskeletal: Denies myalgias Integumentary/Breasts: Skin/Breast: Denies rash Neurologic: Denies confusion and Denies headache(s) Psychiatric: Psychiatric: Denies confusion Endocrine: Endocrine: Denies fatigue Allergic/Immunologic: Allergic/Immunologic: Denies wheezing [facility] Medical History (Updated 10/25/24 @ 21:04 by Ciera Sanchez PA-C) Nephropathy Anemia GERD (gastroesophageal reflux disease) CKD (chronic kidney disease) stage 3, GFR 30-59 ml/min Psoriatic arthritis Osteopenia Onychomycosis Mild nonproliferative diabetic retinopathy of both eyes Macrocytosis HLD (hyperlipidemia) History of bleeding peptic ulcer Closed traumatic brain injury BPH (benign prostatic hyperplasia) 1st degree AV block PAD (peripheral artery disease) Skin ulcer of left great toe Hypertension Type 2 diabetes mellitus Diabetes PSA (psoriatic arthritis) Surgical History Hx of tonsillectomy Hx of cholecystectomy History of esophagogastroduodenoscopy (EGD) H/O colonoscopy Hx of inguinal hernia repair History of atherectomy Social History Household Members: Family Household Members Other:: 1 Housing: House Are you a primary director of medicare to a significant other at home: No Do you presently have visiting nurse or other home services: No Alcohol intake: former Comment: 1 assist with walker Patient Tobacco Use Status: Former Tobacco user Tobacco use type: Cigarette Cigarette Packs Per Day: 0.5 Cigarettes Per Day: 10.0 Years Smoked: 15 e-Cigarette/Vaping Use: Never Used Second Hand Smoke Exposure: No Advance Directives: No Advance Directives Information Provided: No Advance Directives Date on File: 10/10/22 service: No Current occupational status: retired Narrative: no smoking, drug use or etoh Meds Allergies Allergy/AdvReac Type Severity Reaction Status Date / Time clindamycin [From CLEOCIN] Allergy Severe BLACK STOOL Verified 10/25/24 15:23 Sulfa (Sulfonamide Allergy Intermediate Swelling Verified 10/25/24 15:23 Antibiotics) atorvastatin Allergy Unknown Verified 10/25/24 15:23 Home Medications ?Medication ?Instructions ?Recorded ?Confirmed ?Last Taken ?Type metformin 500 mg tablet 500 mg PO BID 06/30/20 10/13/24 10/12/24 History multivitamin 1 tab PO DAILY@1200 06/30/20 10/13/24 06/23/24 History atorvastatin 40 mg tablet 40 mg PO MOTH@1800 10/10/22 10/13/24 06/23/24 History cyclosporine 0.05 % eye drops in a 1 drp ophthalmic (eye) Q12H 10/10/22 10/13/24 06/23/24 History dropperette (Restasis) pantoprazole 40 mg tablet,delayed 40 mg PO DAILY 06/24/24 10/13/24 10/13/24 History release amlodipine 5 mg tablet 5 mg PO DAILY 06/27/24 10/13/24 10/13/24 History lisinopril 20 mg tablet 20 mg PO DAILY 10/09/24 10/13/24 10/12/24 History Physical Exam Vital Signs and Narrative: Vital Signs: Last Vital Signs Temp 97.9 F 10/25/24 15:08 Pulse 68 10/25/24 15:08 Resp 18 10/25/24 15:08 BP 115/54 L 10/25/24 15:08 Pulse Ox 96 10/25/24 15:08 O2 Del Method Room Air 10/25/24 15:08 BMI result Body Mass Index 25.8 General: AOx3, no acute distress Resp: CTA bilaterally CVS: S1, S2, RRR GI/: +BS, NT, no distention. subrapubic catheter in place with dark red urine in bag, no clots Skin: Warm, dry Neuro: Cranial nerves II-XII grossly intact bilaterally. Motor grossly intact bilaterally Extremities: No LE edema. LLE without any obvious injury. chronic stasis dermatitis. no pain with palpation of the calf, no palpable lesion or pain with exam. Psych: Appropriate affect Const: General: No confusion Orientation/consciousness: No confusion Neuro: General: No confusion Results Labs 10/25/24 16:14 10/25/24 16:14 Labs: Laboratory Results - last 24 hr 10/25/24 10/25/24 16:14 18:20 MCV 95.4 MCH 33.1 H MCHC 34.7 RDW 11.9 Plt Count 236 MPV 11.5 Immature Gran % (Auto) 0.5 H Neut % (Auto) 62.4 Lymph % (Auto) 24.1 [place] % (Auto) 10.1 Eos % (Auto) 2.8 Baso % (Auto) 0.1 Lymph # (Auto) 2.5 [place] # (Auto) 1.0 Eos # (Auto) 0.3 Baso # (Auto) 0.0 Abs Immat Gran (auto) 0.05 H Absolute Neuts (auto) 6.4 Absolute Nucleated RBC 0.000 Nucleated RBC % (auto) 0.0 Anion Gap 14 Estim Creat Clear Calc 22.6 Estimated GFR 25 Random Glucose 102 Lactic Acid 1.7 Calcium 9.5 Total Bilirubin 0.6 AST 23 ALT 11 Alkaline Phosphatase 82 Total Creatine Kinase 50 Total Protein 7.4 Albumin 4.0 Urine Color PINK Urine Appearance Clear Urine pH 5.0 Ur Specific [place] 1.020 Urine Protein 300 (3+) H Urine Glucose (UA) Negative Urine Ketones Negative Urine Blood Large (3+) H Urine Nitrite Positive H Ur Leukocyte Esterase Moderate (2+) H Urine RBC >20 H Urine WBC 21-50 Ur Squamous Epith Cells 0-2 Urine Bacteria 1+ Hyaline Casts 0-2 Assessment and Plan (1) Gross hematuria: Status: Acute (2) Urinary tract infection: Status: Acute (3) Bilateral hydronephrosis: Status: Acute (4) Acute kidney injury superimposed on CKD: Status: Acute (5) Anemia: Status: Acute Plan Patient is an 83-year-old male with a past medical history significant for bladder outlet obstruction status post GreenLight prostate treatment on 10/13/2024 with suprapubic catheter placement, chronic bilateral hydronephrosis, hx osteomyelitis, PAD, anemia, GERD, CKD, HLD, HTN, type 2 diabetes, who presented to the ED due to hematuria since last night. Urology was contacted and they recommended medical admission due to ESTEPHANIA and possible UTI. Gross gross hematuria - WBC 10.2, vital signs stable, lactic acid normal, blood cultures x2 pending, no sepsis - UA with large blood, moderate leukocytes, 21-50 WBC, 1+ bacteria, culture pending - abdominopelvic CT with small amount of blood clot within the bladder, diffuse bladder wall thickening likely secondary to chronic bladder outlet obstruction, cystitis could also be contributing to better wall thickening, mild bilateral hydroureter - creatinine elevated at 2.47 - given 1 L NS in ED and started on ceftriaxone, continue ceftriaxone - urology consult - continue to hold Plavix and ASA 81 - monitor CBC and BMP ESTEPHANIA on CKD, likely postrenal with medications contributing - creatinine 2.47 - hold metformin, Lasix, lisinopril - given 1 L of IV fluids in ED - monitor BMP Anemia - gross hematuria likely contributing factor however patient does have chronic anemia - currently hemoglobin 10.9, hematocrit 31.4, in July hemoglobin 12.7, hematocrit 36.9 - hold Plavix and aspirin as above - no need for transfusion at this time - continue iron - monitor CBC Bilateral hydronephrosis - chronic - urology consult as above Type 2 diabetes - diabetic diet, NPO after midnight in case if cystoscopy tomorrow - sliding scale insulin - hold metformin due to ESTEPHANIA HTN - continue amlodipine - home lisinopril and furosemide due to ESTEPHANIA HLD - continue atorvastatin (Sunday and ) Full code VTE prophylaxis: Pneumoboots, anticoagulant contraindicated due to gross hematuria Patient with gross hematuria and possible UTI complicated by ESTEPHANIA on CKD requiring admission for at least 2 midnights stay for further evaluation and monitoring. Quality Stroke Does the patient have a stroke diagnosis?: No VTE Prior VTE?: No VTE Risk Level:: Medical - moderate - high VTE Device Contraindication: N/A - Device Ordered VTE Drug Contraindication: Treatment Not Indicated
[2024-10-25 22:00] VITALS: BP 136/67; PULSE 75; RESP 18; TEMP 36.4; O2SAT 98
--- NOTE | 2024-10-26 00:39 | MHC.EDTECH ---
Patient ambulated W/1 assist to the bathroom, pt has a steady gait,pt moved his bowels,call ingram in reach
[2024-10-26 01:49] VITALS: BP 151/67; PULSE 62; RESP 18; TEMP 36.4; O2SAT 98
[2024-10-26] MEDS: 0.9 % Sodium Chloride Flush 3 ML SYRINGE IVFLUSH ×2 (01:54→07:38)
[2024-10-26 07:45] LABS: Glucose, Whole Blood 100 mg/dL (60-115)
[2024-10-26 07:56] LABS: MANUAL DIFF FLAG NO
[2024-10-26 08:12] LABS: Basophils Percent Auto 0.3 % (0-2); Eosinophils Absolute Auto 0.5 X10*3/uL (0.0-0.4); Eosinophils Percent Auto 4.3 % (0-4); Hematocrit 35.4 % (42.0-52.0); Hemoglobin 11.7 g/dl (14.0-18.0); Imm Gran Abs Auto 0.04 X10*3/uL (0.00-0.03); Imm Gran Pct Auto 0.4 % (0.0-0.4); Lymphocytes Absolute Auto 2.5 X10*3/uL (1.2-4.9); Mean Corpuscular HGB Conc 33.1 g/dl (31.0-36.0); Mean Corpuscular Hemoglobin 32.5 pg (27.0-33.0); Mean Corpuscular Volume 98.3 fL (80.0-98.0); Mean Platelet Volume 12.2 fL (9.4-12.4); Monocytes Absolute Auto 1.3 X10*3/uL (0.1-1.2); Monocytes Percent Auto 11.6 % (2-11); Neutrophils Absolute Auto 6.5 x10*3/uL (2.0-8.3); Neutrophils Percent Auto 60.4 % (45-73); Platelet Count 256 X10*3/uL (160-400); White Blood Count 10.8 X10*3/uL (4.8-10.8)
[2024-10-26 08:19] VITALS: BP 125/56; PULSE 68; RESP 18; TEMP 36.8; O2SAT 97
--- NOTE | 2024-10-26 08:56 | PHA.MEDREC ---
Pharmacy Consult ? Medication Reconciliation Pharmacy has completed the medication reconciliation. Spoke to pt to confirm meds, who had a med list with him.
--- NOTE | 2024-10-26 10:46 | P.CNUR_ITS ---
History of Present Illness Consult details Consult date: 10/26/24 Narrative: Lefty is an 83-year-old male with a past medical history significant for bladder outlet obstruction status post GreenLight prostate treatment with suprapubic catheter placement on 10/13/2024, chronic bilateral hydronephrosis, osteomyelitis, PAD, anemia, GERD, CKD, HLD, HTN, type 2 diabetes, who presented to the ED due to hematuria since last night. He reports dark red urine without any clots. Catheter is draining well. Denies any abdominal pain, nausea or vomiting. Labs--ESTEPHANIA Review of Systems 2 Review of Systems: Yes all other systems are reviewed and are negative Constitutional: Constitutional: Reports no additional constitutional complaints Eyes: Eyes: Reports no additional eye complaints ENT: Reports system reviewed and no additional complaints, except as documented Cardiovascular: Cardiovascular: Reports no additional cardiovascular complaints Respiratory: Respiratory: Reports no additional respiratory complaints Gastrointestinal: Gastrointestinal: Reports no additional gastrointestinal complaints Genitourinary: Genitourinary: Reports as per HPI Musculoskeletal: Musculoskeletal: Reports no additional musculoskeletal complaints Integumentary/Breasts: Skin/Breast: Reports system reviewed and no additional complaints, except as docu Neurologic: Reports system reviewed and no additional complaints, except as documented Psychiatric: Psychiatric: Reports no additional psychiatric complaints Endocrine: Endocrine: Reports no additional endocrine complaints Hematologic/Lymphatic: Hematologic/Lymphatic: Reports no additional hematologic/lymphatic complaints Allergic/Immunologic: Allergic/Immunologic: Reports no additional allergic/immunologic complaints PMFSH Past Medical History Medical History Nephropathy Anemia GERD (gastroesophageal reflux disease) CKD (chronic kidney disease) stage 3, GFR 30-59 ml/min Psoriatic arthritis Osteopenia Onychomycosis Mild nonproliferative diabetic retinopathy of both eyes Macrocytosis HLD (hyperlipidemia) History of bleeding peptic ulcer Closed traumatic brain injury BPH (benign prostatic hyperplasia) 1st degree AV block PAD (peripheral artery disease) Skin ulcer of left great toe Hypertension Type 2 diabetes mellitus Diabetes PSA (psoriatic arthritis) Surgical History Surgical History Hx of tonsillectomy Hx of cholecystectomy History of esophagogastroduodenoscopy (EGD) H/O colonoscopy Hx of inguinal hernia repair History of atherectomy Social History Social History Household Members: Children and None Household Members Other:: 1 Housing: House Are you a primary acute care nurse practitioner to a significant other at home: No Do you presently have visiting nurse or other home services: No Alcohol intake: former Comment: 1 assist with walker Patient Tobacco Use Status: Former Tobacco user Tobacco use type: Cigarette Cigarette Packs Per Day: 0.5 Cigarettes Per Day: 10.0 Years Smoked: 15 e-Cigarette/Vaping Use: Never Used Second Hand Smoke Exposure: No Advance Directives Date on File: 10/10/22 service: No Current occupational status: retired Meds Allergies Allergy/AdvReac Type Severity Reaction Status Date / Time clindamycin [From CLEOCIN] Allergy Severe BLACK STOOL Verified 10/25/24 15:23 Sulfa (Sulfonamide Allergy Intermediate Swelling Verified 10/25/24 15:23 Antibiotics) atorvastatin Allergy Unknown Verified 10/25/24 15:23 Active Medications: Current Medications Acetaminophen (Acetaminophen 325 Mg Tablet) 975 mg PO Q6H PRN PRN Reason: Pain, Mild 1-3,fever,headache Amlodipine Besylate (Amlodipine Besylate 5 Mg Tablet) 5 mg PO DAILY MICHAEL; Protocol Atorvastatin Calcium (Atorvastatin Calcium 40 Mg Tablet) 40 mg PO MOTH@1800 [facility] Calcium Carbonate (Calcium Carbonate 750 Mg Tab.Chew) 750 mg PO Q4H PRN PRN Reason: Heartburn Ceftriaxone Sodium (Ceftriaxone Sodium 1 Gm Vial) 1 gm IVPUSH Q24H [facility] Ferrous Sulfate (Ferrous Sulfate 324 Mg Tablet.Dr) 324 mg PO Q2D [facility] Finasteride (Finasteride 5 Mg Tablet) 5 mg PO BEDTIME [facility] Furosemide (Furosemide 40 Mg Tablet) 40 mg PO DAILY@1400 [facility]HAEL; Protocol Glucose (Glucose Gel 15 Gm Gel..Gram.) 15 gm PO Q15M PRN; Protocol PRN Reason: per Hypoglycemia Standing Ord. Dextrose (D10) 250 mls @ 750 mls/hr IV Q15M PRN; Protocol PRN Reason: per Hypoglycemia Standing Ord. Insulin Human Lispro (Insulin Lispro 100 Unit/Ml 3 Ml Vial) 0 unit SUBCUT QIDACHS [facility]; Protocol Last Admin: 10/26/24 07:49 Dose: Not Given Magnesium Hydroxide (Milk Of Magnesia 30 Ml Oral.Susp) 30 ml PO DAILY PRN PRN Reason: Constipation Melatonin (Melatonin 3 Mg Tablet) 6 mg PO BEDTIME PRN PRN Reason: Insomnia Metformin HCl (Metformin Hcl 500 Mg Tablet) 500 mg PO BID [facility] Multivitamins/Vitamin C (Multivitamin Tablet) 1 tab PO DAILY@1200 [facility] Mupirocin (Mupirocin 2 % Oint 22 Gm Tube) 1 appl TOPICAL TID [facility]; Protocol Non-Formulary Medication (Cyclosporine [Restasis Multidose]) 1 drop EYE-BOTH Q12H [facility] Omeprazole (Omeprazole 20 Mg Capsule.Dr) 20 mg PO DAILY@0630 [facility] Ondansetron HCl (Ondansetron Hcl 4 Mg/2 Ml Vial) 4 mg IVPUSH Q8H PRN PRN Reason: Nausea and Vomiting Polyethylene Glycol (Polyethylene Glycol 3350 17 Gm Powd.Pack) 17 gm PO DAILY PRN PRN Reason: Constipation Sodium Chloride (0.9 % Sodium Chloride Flush 3 Ml Syringe) 3 ml IVFLUSH QSHIFT [facility] Last Admin: 10/26/24 07:38 Dose: 3 ml Tamsulosin HCl (Tamsulosin Hcl 0.4 Mg Capsule) 0.4 mg PO BEDTIME [facility] Home Medications ?Medication ?Instructions ?Recorded ?Confirmed ?Last Taken ?Type metformin 500 mg tablet 500 mg PO BID 06/30/20 10/26/24 10/25/24 09:00 History multivitamin 1 tab PO DAILY@1200 06/30/20 10/26/24 06/23/24 History atorvastatin 40 mg tablet 40 mg PO MOTH@1800 10/10/22 10/26/24 10/23/24 History pantoprazole 40 mg tablet,delayed 40 mg PO DAILY@0630 06/24/24 10/26/24 10/25/24 07:00 History release amlodipine 5 mg tablet 5 mg PO DAILY 06/27/24 10/26/24 10/25/24 09:00 History lisinopril 20 mg tablet 20 mg PO DAILY 10/09/24 10/26/24 10/25/24 09:00 History acetaminophen 500 mg tablet 500 mg PO BID 10/26/24 10/26/24 10/25/24 09:00 History aspirin 81 mg chewable tablet 81 mg PO DAILY 10/26/24 10/26/24 10/25/24 09:00 History clopidogrel 75 mg tablet 75 mg PO BEDTIME 10/26/24 10/26/24 10/07/24 History cyclosporine 0.05 % eye drops 1 drp ophthalmic (eye) Q12H 10/26/24 10/26/24 10/25/24 History (Restasis MultiDose) ferrous sulfate 325 mg (65 mg 325 mg PO Q2D 10/26/24 10/26/24 10/24/24 History iron) tablet (iron) finasteride 5 mg tablet 5 mg PO BEDTIME 10/26/24 10/26/24 10/12/24 History furosemide 40 mg tablet 40 mg PO DAILY@1400 10/26/24 10/26/24 10/25/24 09:00 History mupirocin 2 % topical ointment 1 appl topical TID Rash 10/26/24 10/26/24 10/25/24 09:00 History Physical Exam 2 Vital Signs: Vital Signs: Last Vital Signs Temp 98.2 F 10/26/24 08:19 Pulse 68 10/26/24 08:19 Resp 18 10/26/24 08:19 BP 125/56 L 10/26/24 08:19 Pulse Ox 97 10/26/24 08:19 O2 Del Method Room Air 10/26/24 08:19 BMI result Body Mass Index 25.8 Const: General: healthy appearing, no acute distress and well developed O rientation/consciousness: patient oriented x3 HEENT: Head: Yes normocephalic and Yes atraumatic Eyes: Conjunctivae: conjunctivae normal Neck: Neck: Yes normal visual inspection Chest: Chest palpation & inspection: normal inspection of the chest Resp: Effort & Inspection: normal respiratory effort Cardio: Rate: regular rate GI: Inspection: Yes normal to inspection Palpation (GI): Soft to palpation : Other: SP tube - 16 fr - gross hematuria, draining no clots Neuro: General: patient oriented x3 Psych: Appearance: grossly normal Affect: normal affect Results Labs 10/27/24 05:30 10/27/24 05:30 Labs: Abnormal lab results 10/25/24 10/26/24 Range/Units 16:14 06:38 RBC 3.29 L 3.60 L (4.60-5.80) X10*6/uL Hgb 10.9 L 11.7 L (14.0-18.0) g/dl Hct 31.4 L 35.4 L (42.0-52.0) % MCV 98.3 H (80.0-98.0) fL MCH 33.1 H (27.0-33.0) pg Immature Gran % (Auto) 0.5 H (0.0-0.4) % [place] % (Auto) 11.6 H (2-11) % Eos % (Auto) 4.3 H (0-4) % [place] # (Auto) 1.3 H (0.1-1.2) X10*3/uL Eos # (Auto) 0.5 H (0.0-0.4) X10*3/uL Abs Immat Gran (auto) 0.05 H 0.04 H (0.00-0.03) X10*3/uL BUN 117 H (9-16) mg/dL Creatinine 2.47 H (0.5-1.4) mg/dL Urine Protein 300 (3+) H (Neg-Trace) mg/dL Urine Blood Large (3+) H (Negative) Urine Nitrite Positive H (Negative) Ur Leukocyte Esterase Moderate (2+) H (Negative) Urine RBC >20 H (0-2) /HPF Short CBC 10/25/24 10/26/24 Range/Units 16:14 06:38 WBC 10.2 10.8 (4.8-10.8) X10*3/uL Hgb 10.9 L 11.7 L (14.0-18.0) g/dl Hct 31.4 L 35.4 L (42.0-52.0) % Plt Count 236 256 (160-400) X10*3/uL BMP 10/25/24 16:14 Sodium 136 Potassium 4.9 Chloride 103 Carbon Dioxide 24 BUN 117 H Creatinine 2.47 H Calcium 9.5 Cardiac Enzymes 10/25/24 Range/Units 16:14 Total Creatine Kinase 50 (38-174) U/L Liver Function 10/25/24 Range/Units 16:14 Total Bilirubin 0.6 (0.0-1.0) mg/dL AST 23 (5-37) U/L ALT 11 (0-40) U/L Alkaline Phosphatase 82 (39-117) U/L Albumin 4.0 (3.5-5.0) g/dL Urine 10/25/24 Range/Units 16:14 Urine Color PINK Urine Appearance Clear Urine pH 5.0 (5.0-9.0) Ur Specific [place] 1.020 (1.005-1.025) Urine Protein 300 (3+) H (Neg-Trace) mg/dL Urine Glucose (UA) Negative (Negative) mg/dL All other labs normal. Imaging Additional studies: Date of Service: 10/25/24 CLINICAL HISTORY: hematuria, ESTEPHANIA, ?calculi CT abdomen and pelvis without contrast Comparison: CT/[place]/SR - CT ABDOMEN PELVIS W IV CON - 06/24/24 13:29 EDT Findings: There is minimal bibasilar atelectasis. Patient is status post cholecystectomy. There are unchanged stones/calcifications within the cystic duct stump. The liver, pancreas, spleen, and adrenal glands are unremarkable. There is mild bilateral hydroureter with no ureteral obstruction significantly improved from the prior CT. Kidneys are otherwise unremarkable. There is a suprapubic catheter in the bladder. There is diffuse bladder wall thickening. The bladder is not significantly distended.There is a small amount of irregularly-shaped of blood clot within the bladder roughly measuring up to 3 cm in size. The prostate is enlarged. There is colonic diverticulosis. The appendix is normal. The remainder of the gastrointestinal tract is unremarkable. There is a small fat containing left inguinal hernia. There are no enlarged lymph nodes. The aorta is normal in diameter. There are degenerative changes throughout the lumbar spine. 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 There is bony fusion of L4-5 and of T10-11. IMPRESSION: 1. Small amount of blood clot within the bladder. 2. Suprapubic catheter in the bladder, large prostate, and diffuse bladder wall thickening likely secondary to chronic bladder outlet obstruction. Cystitis contributing to bladder wall thickening is not excluded. 3. Mild bilateral hydroureter with no evidence of ureteral obstruction significantly improved from the prior CT. 4. Additional chronic findings as above. Assessment and Plan (1) ESTEPHANIA (acute kidney injury): Status: Acute (2) Urinary tract infection: Status: Acute (3) Urinary retention: Status: Acute Plan IV Abx. urine c/s pending. monitor SP tube drainage Procedures Date of Service Date of Service: 10/27/24
[2024-10-26] MEDS: Multivitamin TABLET 1 TAB PO (10:57)
[2024-10-26] MEDS: Ferrous Sulfate 324 MG TABLET.DR PO (10:57)
--- NOTE | 2024-10-26 10:59 | P.PNIM_ITS ---
Subjective Subjective Date of Service: 10/26/24 Interval History: still with gross hematuria Physical Exam 2 Vital Signs: Vital Signs: Last Vital Signs Temp 98.2 F 10/26/24 08:19 Pulse 68 10/26/24 08:19 Resp 18 10/26/24 08:19 BP 125/56 L 10/26/24 08:19 Pulse Ox 97 10/26/24 08:19 O2 Del Method Room Air 10/26/24 08:19 BMI result Body Mass Index 25.8 Const: Other: General: AO X 3, no acute distress Resp: CTA bilateral CVS: S1,S2,RRR GI: +BS, NT, no distention Skin: No rash ; loza in with gross hematuria Neuro: motor grossly intact Psych: appropriate affect Objective Data Active Medications Acetaminophen (Acetaminophen 325 Mg Tablet) 975 mg PO Q6H PRN PRN Reason: Pain, Mild 1-3,fever,headache Amlodipine Besylate (Amlodipine Besylate 5 Mg Tablet) 5 mg PO DAILY [facility]; Protocol Atorvastatin Calcium (Atorvastatin Calcium 40 Mg Tablet) 40 mg PO MOTH@1800 [facility]HAEL Calcium Carbonate (Calcium Carbonate 750 Mg Tab.Chew) 750 mg PO Q4H PRN PRN Reason: Heartburn Ceftriaxone Sodium (Ceftriaxone Sodium 1 Gm Vial) 1 gm IVPUSH Q24H [facility]HAEL Ferrous Sulfate (Ferrous Sulfate 324 Mg Tablet.) 324 mg PO Q2D [facility] Last Admin: 10/26/24 10:57 Dose: 324 mg Documented By: TEJ Finasteride (Finasteride 5 Mg Tablet) 5 mg PO BEDTIME MICHAEL Furosemide (Furosemide 40 Mg Tablet) 40 mg PO DAILY@1400 [facility]; Protocol Glucose (Glucose Gel 15 Gm Gel..Gram.) 15 gm PO Q15M PRN; Protocol PRN Reason: per Hypoglycemia Standing Ord. Dextrose (D10) 250 mls @ 750 mls/hr IV Q15M PRN; Protocol PRN Reason: per Hypoglycemia Standing Ord. Insulin Human Lispro (Insulin Lispro 100 Unit/Ml 3 Ml Vial) 0 unit SUBCUT QIDACHS [facility]; Protocol Last Admin: 10/26/24 07:49 Dose: Not Given Documented By: TEJ Non-Admin Reason: No Insulin Coverage Magnesium Hydroxide (Milk Of Magnesia 30 Ml Oral.Susp) 30 ml PO DAILY PRN PRN Reason: Constipation Melatonin (Melatonin 3 Mg Tablet) 6 mg PO BEDTIME PRN PRN Reason: Insomnia Metformin HCl (Metformin Hcl 500 Mg Tablet) 500 mg PO BID [facility] Multivitamins/Vitamin C (Multivitamin Tablet) 1 tab PO DAILY@1200 [facility] Last Admin: 10/26/24 10:57 Dose: 1 tab Documented By: TEJ Mupirocin (Mupirocin 2 % Oint 22 Gm Tube) 1 appl TOPICAL TID [facility]; Protocol Non-Formulary Medication (Cyclosporine [Restasis Multidose]) 1 drop EYE-BOTH Q12H [facility] Omeprazole (Omeprazole 20 Mg Capsule.Dr) 20 mg PO DAILY@0630 [facility] Ondansetron HCl (Ondansetron Hcl 4 Mg/2 Ml Vial) 4 mg IVPUSH Q8H PRN PRN Reason: Nausea and Vomiting Polyethylene Glycol (Polyethylene Glycol 3350 17 Gm Powd.Pack) 17 gm PO DAILY PRN PRN Reason: Constipation Sodium Chloride (0.9 % Sodium Chloride Flush 3 Ml Syringe) 3 ml IVFLUSH QSHIFT [facility] Last Admin: 10/26/24 07:38 Dose: 3 ml Documented By: TEJ Tamsulosin HCl (Tamsulosin Hcl 0.4 Mg Capsule) 0.4 mg PO BEDTIME [facility] Labs 10/26/24 06:38 10/25/24 16:14 Labs: Laboratory Results - last 24 hr 10/25/24 10/25/24 10/26/24 16:14 18:20 06:38 MCV 95.4 98.3 H MCH 33.1 H 32.5 MCHC 34.7 33.1 RDW 11.9 12.0 Plt Count 236 256 MPV 11.5 12.2 Immature Gran % (Auto) 0.5 H 0.4 Neut % (Auto) 62.4 60.4 Lymph % (Auto) 24.1 23.0 [place] % (Auto) 10.1 11.6 H Eos % (Auto) 2.8 4.3 H Baso % (Auto) 0.1 0.3 Lymph # (Auto) 2.5 2.5 [place] # (Auto) 1.0 1.3 H Eos # (Auto) 0.3 0.5 H Baso # (Auto) 0.0 0.0 Abs Immat Gran (auto) 0.05 H 0.04 H Absolute Neuts (auto) 6.4 6.5 Absolute Nucleated RBC 0.000 0.000 Nucleated RBC % (auto) 0.0 0.0 Anion Gap 14 Estim Creat Clear Calc 22.6 Estimated GFR 25 POC Glucose Random Glucose 102 Lactic Acid 1.7 Calcium 9.5 Total Bilirubin 0.6 AST 23 ALT 11 Alkaline Phosphatase 82 Total Creatine Kinase 50 Total Protein 7.4 Albumin 4.0 Urine Color PINK Urine Appearance Clear Urine pH 5.0 Ur Specific [place] 1.020 Urine Protein 300 (3+) H Urine Glucose (UA) Negative Urine Ketones Negative Urine Blood Large (3+) H Urine Nitrite Positive H Ur Leukocyte Esterase Moderate (2+) H Urine RBC >20 H Urine WBC 21-50 Ur Squamous Epith Cells 0-2 Urine Bacteria 1+ Hyaline Casts 0-2 10/26/24 07:18 MCV MCH MCHC RDW Plt Count MPV Immature Gran % (Auto) Neut % (Auto) Lymph % (Auto) [place] % (Auto) Eos % (Auto) Baso % (Auto) Lymph # (Auto) [place] # (Auto) Eos # (Auto) Baso # (Auto) Abs Immat Gran (auto) Absolute Neuts (auto) Absolute Nucleated RBC Nucleated RBC % (auto) Anion Gap Estim Creat Clear Calc Estimated GFR POC Glucose 100 Random Glucose Lactic Acid Calcium Total Bilirubin AST ALT Alkaline Phosphatase Total Creatine Kinase Total Protein Albumin Urine Color Urine Appearance Urine pH Ur Specific [place] Urine Protein Urine Glucose (UA) Urine Ketones Urine Blood Urine Nitrite Ur Leukocyte Esterase Urine RBC Urine WBC Ur Squamous Epith Cells Urine Bacteria Hyaline Casts Microbiology Microbiology Results: Microbiology 10/25/24 Unknown Urine Culture - Preliminary Urine Other - Suprapubic Gram positive cocci Assessment and Plan (1) Gross hematuria: Status: Acute Plan 83-year-old male with a past medical history significant for bladder outlet obstruction status post GreenLight prostate treatment on 10/13/2024 with suprapubic catheter placement, chronic bilateral hydronephrosis, hx osteomyelitis, PAD, anemia, GERD, CKD, HLD, HTN, type 2 diabetes, who presented to the ED due to hematuria since last night. Urology was contacted and they recommended medical admission due to ESTEPHANIA and possible UTI. Gross gross hematuria - WBC 10.2, vital signs stable, lactic acid normal, blood cultures x2 pending, no sepsis - UA with large blood, moderate leukocytes, 21-50 WBC, 1+ bacteria, culture pending - abdominopelvic CT with small amount of blood clot within the bladder, diffuse bladder wall thickening likely secondary to chronic bladder outlet obstruction, cystitis could also be contributing to better wall thickening, mild bilateral hydroureter - creatinine elevated at 2.47 - given 1 L NS in ED and started on ceftriaxone, continue ceftriaxone - urology consult - continue to hold Plavix and ASA 81 - monitor CBC and BMP -consider cbi ESTEPHANIA on CKD, likely postrenal with medications contributing - creatinine 2.47 - hold metformin, Lasix, lisinopril - given 1 L of IV fluids in ED - monitor BMP Anemia - gross hematuria likely contributing factor however patient does have chronic anemia - currently hemoglobin 10.9, hematocrit 31.4, in July hemoglobin 12.7, hematocrit 36.9 - hold Plavix and aspirin as above - no need for transfusion at this time - continue iron - monitor CBC Bilateral hydronephrosis - chronic - urology consult as above Type 2 diabetes - diabetic diet, NPO after midnight in case if cystoscopy tomorrow - sliding scale insulin - hold metformin due to ESTEPHANIA HTN - continue amlodipine - home lisinopril and furosemide due to ESTEPHANIA HLD - continue atorvastatin (Sunday and ) Full code VTE prophylaxis: Pneumoboots, anticoagulant contraindicated due to gross hematuria Patient with gross hematuria and possible UTI complicated by ESTEPHANIA on CKD requiring admission for at least 2 midnights stay for further evaluation and monitoring. Quality Stroke Does the patient have a stroke diagnosis?: No VTE Prior VTE?: No VTE Risk Level:: Medical - moderate - high VTE Device Contraindication: N/A - Device Ordered VTE Drug Contraindication: Treatment Not Indicated
[2024-10-26 11:35] LABS: Glucose, Whole Blood 184 mg/dL (60-115)
[2024-10-26 12:01] LABS: Anion Gap 16 (12-20); Blood Urea Nitrogen 91 mg/dL (9-16); Carbon Dioxide 19 mmol/L (22-29); Chloride 110 mmol/L (96-108); Creatinine Clr Calc Pharmacy 28.4; Estimated Glomerular Filt Rate 33; Glucose Random 97 mg/dL (60-115); Potassium 5.1 mmol/L (3.3-5.1); Sodium 140 mmol/L (135-145)
[2024-10-26 12:28] VITALS: BP 145/64; PULSE 65; RESP 18; TEMP 36.1; O2SAT 98
[2024-10-26] MEDS: Furosemide 40 MG TABLET PO (13:08)
[2024-10-26] MEDS: Lactated Ringers 1,000 ML 100 ML IVCONT ×2 (13:47→22:48)
--- NOTE | 2024-10-26 15:43 | MHC.CM.PN ---
CM MET WITH PT AND DAUGHTER AT BEDSIDE HE REPORTS BEING ACTIVE WITH [facility] PT LIVES WITH HIS SON AND IS INDEPENDENT WITH SELF CARE HE HAS A CANE AND WALKER BUT STATES HE RARELY NEEDS THEM HCP ON FILE PCP: [facility] IMM DELIVERED DCP: HOME RESUME [facility] FAMILY TO TRANSPORT
[2024-10-26 16:15] VITALS: BP 132/59; PULSE 75; RESP 18; TEMP 36.4; O2SAT 95
[2024-10-26 16:35] LABS: Glucose, Whole Blood 156 mg/dL (60-115)
[2024-10-26] MEDS: Insulin Lispro 100 UNIT/ML 3 ML VIAL SUBCUT (17:11)
[2024-10-26] MEDS: cefTRIAXone sodium 1 GM VIAL IVPUSH (17:11)
[2024-10-26] MEDS: Mupirocin 2 % Oint 22 GM TUBE 1 APPL TOPICAL ×2 (18:35→21:16)
[2024-10-26 19:40] LABS: Glucose, Whole Blood 106 mg/dL (60-115)
[2024-10-26 19:53] VITALS: BP 133/61; PULSE 66; RESP 18; TEMP 36.3; O2SAT 100
[2024-10-26] MEDS: Finasteride 5 MG TABLET PO (21:16)
[2024-10-26] MEDS: Tamsulosin HCL 0.4 MG CAPSULE PO (21:16)
[2024-10-27] VITALS (8 sets, daily range): BP systolic 108–145; BP diastolic 55–63; PULSE 65–78; RESP 16–20; TEMP 36–36.8; O2SAT 95–99
[2024-10-27] MEDS: Acetaminophen 325 MG TABLET 975 MG PO ×2 (02:19→21:09)
[2024-10-27] MEDS: Omeprazole 20 MG CAPSULE.DR PO (05:51)
[2024-10-27 06:40] LABS: MANUAL DIFF FLAG NO
[2024-10-27 07:02] LABS: Basophils Percent Auto 0.2 % (0-2); Eosinophils Absolute Auto 0.3 X10*3/uL (0.0-0.4); Eosinophils Percent Auto 3.5 % (0-4); Hematocrit 31.4 % (42.0-52.0); Hemoglobin 10.8 g/dl (14.0-18.0); Imm Gran Abs Auto 0.05 X10*3/uL (0.00-0.03); Imm Gran Pct Auto 0.5 % (0.0-0.4); Lymphocytes Absolute Auto 1.5 X10*3/uL (1.2-4.9); Lymphocytes Percent Auto 15.9 % (20-40); Mean Corpuscular HGB Conc 34.4 g/dl (31.0-36.0); Mean Corpuscular Hemoglobin 32.8 pg (27.0-33.0); Mean Corpuscular Volume 95.4 fL (80.0-98.0); Mean Platelet Volume 11.8 fL (9.4-12.4); Monocytes Absolute Auto 1.1 X10*3/uL (0.1-1.2); Monocytes Percent Auto 11.2 % (2-11); Neutrophils Absolute Auto 6.5 x10*3/uL (2.0-8.3); Neutrophils Percent Auto 68.7 % (45-73); Platelet Count 234 X10*3/uL (160-400); Red Blood Count 3.29 X10*6/uL (4.60-5.80); Red Cell Distribution Width 11.9 % (11.0-16.0); White Blood Count 9.5 X10*3/uL (4.8-10.8)
[2024-10-27 07:18] LABS: Anion Gap 15 (12-20); Blood Urea Nitrogen 66 mg/dL (9-16); Calcium 9.2 mg/dL (8.4-10.2); Carbon Dioxide 21 mmol/L (22-29); Chloride 105 mmol/L (96-108); Creatinine Clr Calc Pharmacy 38.1; Estimated Glomerular Filt Rate 46; Glucose Random 103 mg/dL (60-115); Potassium 4.4 mmol/L (3.3-5.1); Sodium 137 mmol/L (135-145)
[2024-10-27 07:45] LABS: Glucose, Whole Blood 83 mg/dL (60-115)
[2024-10-27] MEDS: metFORMIN HCl 500 MG TABLET PO (08:21)
[2024-10-27] MEDS: Lactated Ringers 1,000 ML 100 ML IVCONT ×2 (08:21→18:35)
[2024-10-27] MEDS: amLODIPine Besylate 5 MG TABLET PO (08:21)
[2024-10-27] MEDS: Mupirocin 2 % Oint 22 GM TUBE 1 APPL TOPICAL ×2 (08:23→21:05)
--- NOTE | 2024-10-27 11:27 | MHC.CM.PN ---
Per MD patient not medically cleared for dc. CM will continue to follow.
[2024-10-27 11:29] LABS: Glucose, Whole Blood 138 mg/dL (60-115)
--- NOTE | 2024-10-27 12:26 | HO.PM.IMPN ---
Subjective Subjective Date of Service: 10/27/24 Interval History: persistent hematuria, but blood is darker now Physical Exam Vital Signs: Vital Signs: Last Vital Signs Temp 97.7 F 10/27/24 11:28 Pulse 71 10/27/24 11:28 Resp 16 10/27/24 11:28 BP 120/63 10/27/24 11:28 Pulse Ox 97 10/27/24 11:28 O2 Del Method Room Air 10/27/24 11:28 BMI result Body Mass Index 25.8 Const: Other: .General: AO X 3, no acute distress Resp: CTA bilateral CVS: S1,S2,RRR GI: +BS, NT, no distention Skin: No rash ; loza in with dark blood, ?old blood Neuro: motor grossly intact Psych: appropriate affect Objective Data Active Medications Acetaminophen (Acetaminophen 325 Mg Tablet) 975 mg PO Q6H PRN PRN Reason: Pain, Mild 1-3,fever,headache Last Admin: 10/27/24 02:19 Dose: 975 mg Documented By: SHA Amlodipine Besylate (Amlodipine Besylate 5 Mg Tablet) 5 mg PO DAILY [facility]; Protocol Last Admin: 10/27/24 08:21 Dose: 5 mg Documented By: KARAN Atorvastatin Calcium (Atorvastatin Calcium 40 Mg Tablet) 40 mg PO MOTH@1800 [facility] Calcium Carbonate (Calcium Carbonate 750 Mg Tab.Chew) 750 mg PO Q4H PRN PRN Reason: Heartburn Ceftriaxone Sodium (Ceftriaxone Sodium 1 Gm Vial) 1 gm IVPUSH Q24H [facility] Last Admin: 10/26/24 17:11 Dose: 1 gm Documented By: TEJ Ferrous Sulfate (Ferrous Sulfate 324 Mg Tablet.) 324 mg PO Q2D [facility] Last Admin: 10/26/24 10:57 Dose: 324 mg Documented By: TEJ Finasteride (Finasteride 5 Mg Tablet) 5 mg PO BEDTIME [facility] Last Admin: 10/26/24 21:16 Dose: 5 mg Documented By: SHA Furosemide (Furosemide 40 Mg Tablet) 40 mg PO DAILY@1400 [facility]; Protocol Last Admin: 10/26/24 13:08 Dose: 40 mg Documented By: TEJ Glucose (Glucose Gel 15 Gm Gel..Gram.) 15 gm PO Q15M PRN; Protocol PRN Reason: per Hypoglycemia Standing Ord. Dextrose (D10) 250 mls @ 750 mls/hr IV Q15M PRN; Protocol PRN Reason: per Hypoglycemia Standing Ord. Lactated Ringer's (Lr) 1,000 mls @ 100 mls/hr IVCONT .Q10H [facility] Last Admin: 10/27/24 08:21 Dose: 100 mls/hr Documented By: KARAN Insulin Human Lispro (Insulin Lispro 100 Unit/Ml 3 Ml Vial) 0 unit SUBCUT QIDACHS [facility]; Protocol Last Admin: 10/27/24 11:56 Dose: Not Given Documented By: KARAN Non-Admin Reason: No Insulin Coverage Magnesium Hydroxide (Milk Of Magnesia 30 Ml Oral.Susp) 30 ml PO DAILY PRN PRN Reason: Constipation Melatonin (Melatonin 3 Mg Tablet) 6 mg PO BEDTIME PRN PRN Reason: Insomnia Metformin HCl (Metformin Hcl 500 Mg Tablet) 500 mg PO BID [facility] Last Admin: 10/27/24 08:21 Dose: 500 mg Documented By: KARAN Multivitamins/Vitamin C (Multivitamin Tablet) 1 tab PO DAILY@1200 [facility] Last Admin: 10/26/24 10:57 Dose: 1 tab Documented By: TEJ Mupirocin (Mupirocin 2 % Oint 22 Gm Tube) 1 appl TOPICAL TID [facility]; Protocol Last Admin: 10/27/24 08:23 Dose: 1 appl Documented By: KARAN Non-Formulary Medication (Cyclosporine [Restasis Multidose]) 1 drop EYE-BOTH Q12H [facility] Omeprazole (Omeprazole 20 Mg Capsule.) 20 mg PO DAILY@0630 [facility] Last Admin: 10/27/24 05:51 Dose: 20 mg Documented By: SHA Ondansetron HCl (Ondansetron Hcl 4 Mg/2 Ml Vial) 4 mg IVPUSH Q8H PRN PRN Reason: Nausea and Vomiting Polyethylene Glycol (Polyethylene Glycol 3350 17 Gm Powd.Pack) 17 gm PO DAILY PRN PRN Reason: Constipation Sodium Chloride (0.9 % Sodium Chloride Flush 3 Ml Syringe) 3 ml IVFLUSH QSHIFT [facility] Last Admin: 10/27/24 07:43 Dose: Not Given Documented By: KARAN Non-Admin Reason: IV Running Tamsulosin HCl (Tamsulosin Hcl 0.4 Mg Capsule) 0.4 mg PO BEDTIME [facility] Last Admin: 10/26/24 21:16 Dose: 0.4 mg Documented By: SHA Labs 10/27/24 05:30 10/27/24 05:30 Labs: Laboratory Results - last 24 hr 10/26/24 10/26/24 10/27/24 16:27 19:34 05:30 MCV 95.4 MCH 32.8 MCHC 34.4 RDW 11.9 Plt Count 234 MPV 11.8 Immature Gran % (Auto) 0.5 H Neut % (Auto) 68.7 Lymph % (Auto) 15.9 L [place] % (Auto) 11.2 H Eos % (Auto) 3.5 Baso % (Auto) 0.2 Lymph # (Auto) 1.5 [place] # (Auto) 1.1 Eos # (Auto) 0.3 Baso # (Auto) 0.0 Abs Immat Gran (auto) 0.05 H Absolute Neuts (auto) 6.5 Absolute Nucleated RBC 0.000 Nucleated RBC % (auto) 0.0 Anion Gap 15 Estim Creat Clear Calc 38.1 Estimated GFR 46 POC Glucose 156 H 106 Random Glucose 103 Calcium 9.2 D 10/27/24 10/27/24 07:40 11:16 MCV MCH MCHC RDW Plt Count MPV Immature Gran % (Auto) Neut % (Auto) Lymph % (Auto) [place] % (Auto) Eos % (Auto) Baso % (Auto) Lymph # (Auto) [place] # (Auto) Eos # (Auto) Baso # (Auto) Abs Immat Gran (auto) Absolute Neuts (auto) Absolute Nucleated RBC Nucleated RBC % (auto) Anion Gap Estim Creat Clear Calc Estimated GFR POC Glucose 83 138 H Random Glucose Calcium Microbiology Microbiology Results: Microbiology 10/25/24 Unknown Urine Culture - Final Urine Other - Suprapubic Enterococcus faecalis 10/25/24 18:36 Blood Culture - Preliminary Blood - Venous No growth after 24 hours. 10/25/24 18:20 Blood Culture - Preliminary Blood - Venous No growth after 24 hours. Assessment and Plan (1) Gross hematuria: Status: Acute Plan 83-year-old male with a past medical history significant for bladder outlet obstruction status post GreenLight prostate treatment on 10/13/2024 with suprapubic catheter placement, chronic bilateral hydronephrosis, hx osteomyelitis, PAD, anemia, GERD, CKD, HLD, HTN, type 2 diabetes, who presented to the ED due to hematuria since last night. Urology was contacted and they recommended medical admission due to ESTEPHANIA and possible UTI. Gross gross hematuria, but little effect on H/H, holding ASA, and Plavix, urology recommends conservative manaement for now, blood in loza is darkening, continue montiro, no signs of clot at this time. -continue Abx Uti--culture Enteroccocus, change ceftriaxone to ampicillin ESTEPHANIA on CKD, likely postrenal, improving - hold metformin, Lasix, lisinopril -continue IVF Acute blood loss anemia d/t hematuria, H/H stable, no indication for transfusion at this time Bilateral hydronephrosis - chronic - urology consult as above Type 2 diabetes -hold metoformin, sliding scale, diabetic diet HTN - continue amlodipine - hold lisinopril and furosemide due to ESTEPHANIA HLD - continue atorvastatin (Sunday and ) Full code VTE prophylaxis: Pneumoboots, anticoagulant contraindicated due to gross hematuria need for inpt: gross hematuria Quality Stroke Does the patient have a stroke diagnosis?: No VTE Prior VTE?: No VTE Risk Level:: Medical - moderate - high VTE Device Contraindication: N/A - Device Ordered VTE Drug Contraindication: Treatment Not Indicated
[2024-10-27] MEDS: Multivitamin TABLET 1 TAB PO (13:19)
[2024-10-27] MEDS: Furosemide 40 MG TABLET PO (13:19)
[2024-10-27] MEDS: Ampicillin Sodium 1 GM in 0.9 % Sodium Chloride 100 ML IV ×2 (13:19→20:55)
--- NOTE | 2024-10-27 14:06 | P.PNUR_ITS ---
Subjective Subjective Date of Service: 10/27/24 Interval history: Persistent hematuria, urine c/s - Enterococcus faecalis >100,000 cfu/mL Sensitive to amp, macrobid, vanco Physical Exam 2 Vital Signs: Vital Signs: Last Vital Signs Temp 97.7 F 10/27/24 11:28 Pulse 71 10/27/24 11:28 Resp 16 10/27/24 11:28 BP 145/61 H 10/27/24 13:19 Pulse Ox 97 10/27/24 11:28 O2 Del Method Room Air 10/27/24 11:28 BMI result Body Mass Index 25.8 Urology Results Labs 10/27/24 05:30 10/27/24 05:30 Labs: Laboratory Results - last 24 hr 10/26/24 10/26/24 10/27/24 16:27 19:34 05:30 WBC 9.5 RBC 3.29 L Hgb 10.8 L Hct 31.4 L MCV 95.4 MCH 32.8 MCHC 34.4 RDW 11.9 Plt Count 234 MPV 11.8 Immature Gran % (Auto) 0.5 H Neut % (Auto) 68.7 Lymph % (Auto) 15.9 L [place] % (Auto) 11.2 H Eos % (Auto) 3.5 Baso % (Auto) 0.2 Lymph # (Auto) 1.5 [place] # (Auto) 1.1 Eos # (Auto) 0.3 Baso # (Auto) 0.0 Abs Immat Gran (auto) 0.05 H Absolute Neuts (auto) 6.5 Absolute Nucleated RBC 0.000 Nucleated RBC % (auto) 0.0 Sodium 137 Potassium 4.4 Chloride 105 Carbon Dioxide 21 L Anion Gap 15 BUN 66 H Creatinine 1.47 H Estim Creat Clear Calc 38.1 Estimated GFR 46 POC Glucose 156 H 106 Random Glucose 103 Calcium 9.2 D 10/27/24 10/27/24 07:40 11:16 WBC RBC Hgb Hct MCV MCH MCHC RDW Plt Count MPV Immature Gran % (Auto) Neut % (Auto) Lymph % (Auto) [place] % (Auto) Eos % (Auto) Baso % (Auto) Lymph # (Auto) [place] # (Auto) Eos # (Auto) Baso # (Auto) Abs Immat Gran (auto) Absolute Neuts (auto) Absolute Nucleated RBC Nucleated RBC % (auto) Sodium Potassium Chloride Carbon Dioxide Anion Gap BUN Creatinine Estim Creat Clear Calc Estimated GFR POC Glucose 83 138 H Random Glucose Calcium Collected: 10/25/24-UNK Status: COMP Req#: [id number] Received: 10/25/24 Source: [facility]OTHER Sp Desc: Suprapubic Subm Dr: Roseanne Humphreys [facility] Ordered: Urine Culture Procedure Result Verified Urine Culture Final 10/27/24 Organism 1 Enterococcus faecalis Quant > 100,000 cfu/mL E faecalis M.I.C. RX --------- --- Ampicillin <=2 S Levofloxacin >=8 R Nitrofurantoin <=16 S Tetracycline >=16 R Vancomycin 1 S END OF REPORT Progress Note: A&P Assessment and plan (1) Urinary retention: Status: Acute (2) Acute kidney injury superimposed on CKD: Status: Acute (3) Gross hematuria: Status: Acute (4) ESTEPHANIA (acute kidney injury): Status: Acute Plan Renal fxn improving, creat. 2.47--1.97 Peristent gross hematuria, SP catheter draining well UTI - Enterococcus- S - Amp/Macr/Vanco Will cont to monitor Time Spent With Patient Time: Total time managing care of this patient today ____ minutes. Progress Note: Quality Stroke Does the patient have a stroke diagnosis?: No
[2024-10-27 16:15] LABS: Glucose, Whole Blood 194 mg/dL (60-115)
[2024-10-27] MEDS: Insulin Lispro 100 UNIT/ML 3 ML VIAL SUBCUT (17:12)
[2024-10-27] MEDS: Atorvastatin Calcium 40 MG TABLET PO (17:12)
[2024-10-27 19:57] LABS: Glucose, Whole Blood 140 mg/dL (60-115)
[2024-10-27] MEDS: Finasteride 5 MG TABLET PO (20:55)
[2024-10-27] MEDS: Tamsulosin HCL 0.4 MG CAPSULE PO (20:55)
[2024-10-27] MEDS: polyethylene glycoL 3350 17 GM POWD.PACK PO (21:02)
[2024-10-28] VITALS (7 sets, daily range): BP systolic 124–140; BP diastolic 58–73; PULSE 66–75; RESP 17–20; TEMP 36.6–37; O2SAT 95–99
[2024-10-28] MEDS: Lactated Ringers 1,000 ML 100 ML IVCONT ×2 (04:33→14:40)
[2024-10-28] MEDS: Ampicillin Sodium 1 GM in 0.9 % Sodium Chloride 100 ML IV ×3 (04:34→20:34)
[2024-10-28] MEDS: Omeprazole 20 MG CAPSULE.DR PO (05:40)
[2024-10-28 06:45] LABS: MANUAL DIFF FLAG NO
[2024-10-28 06:50] LABS: Basophils Percent Auto 0.3 % (0-2); Eosinophils Absolute Auto 0.6 X10*3/uL (0.0-0.4); Eosinophils Percent Auto 6.4 % (0-4); Hematocrit 31.6 % (42.0-52.0); Hemoglobin 10.8 g/dl (14.0-18.0); Imm Gran Abs Auto 0.02 X10*3/uL (0.00-0.03); Imm Gran Pct Auto 0.2 % (0.0-0.4); Lymphocytes Absolute Auto 2.1 X10*3/uL (1.2-4.9); Lymphocytes Percent Auto 21.5 % (20-40); Mean Corpuscular HGB Conc 34.2 g/dl (31.0-36.0); Mean Corpuscular Hemoglobin 33.5 pg (27.0-33.0); Mean Corpuscular Volume 98.1 fL (80.0-98.0); Mean Platelet Volume 11.5 fL (9.4-12.4); Monocytes Percent Auto 10.8 % (2-11); Neutrophils Absolute Auto 5.8 x10*3/uL (2.0-8.3); Neutrophils Percent Auto 60.8 % (45-73); Platelet Count 214 X10*3/uL (160-400); Red Blood Count 3.22 X10*6/uL (4.60-5.80); White Blood Count 9.6 X10*3/uL (4.8-10.8)
[2024-10-28 07:04] LABS: Anion Gap 14 (12-20); Blood Urea Nitrogen 48 mg/dL (9-16); Calcium 8.7 mg/dL (8.4-10.2); Carbon Dioxide 20 mmol/L (22-29); Chloride 105 mmol/L (96-108); Creatinine Clr Calc Pharmacy 43.7; Estimated Glomerular Filt Rate 54; Glucose Random 99 mg/dL (60-115); Potassium 4.4 mmol/L (3.3-5.1); Sodium 135 mmol/L (135-145)
[2024-10-28 07:58] LABS: Glucose, Whole Blood 109 mg/dL (60-115)
[2024-10-28] MEDS: Ferrous Sulfate 324 MG TABLET.DR PO (09:36)
[2024-10-28] MEDS: amLODIPine Besylate 5 MG TABLET PO (09:36)
[2024-10-28] MEDS: Mupirocin 2 % Oint 22 GM TUBE 1 APPL TOPICAL ×3 (09:37→22:39)
[2024-10-28 11:35] LABS: Glucose, Whole Blood 146 mg/dL (60-115)
[2024-10-28] MEDS: Multivitamin TABLET 1 TAB PO (12:20)
[2024-10-28] MEDS: Furosemide 40 MG TABLET PO (14:33)
[2024-10-28 16:15] LABS: Glucose, Whole Blood 211 mg/dL (60-115)
[2024-10-28] MEDS: Insulin Lispro 100 UNIT/ML 3 ML VIAL SUBCUT (17:12)
[2024-10-28 19:37] LABS: Glucose, Whole Blood 79 mg/dL (60-115)
[2024-10-28] MEDS: Acetaminophen 325 MG TABLET 975 MG PO (20:34)
[2024-10-28] MEDS: Tamsulosin HCL 0.4 MG CAPSULE PO (20:35)
[2024-10-28] MEDS: Finasteride 5 MG TABLET PO (20:36)
[2024-10-28] MEDS: oxyCODONE HCl Immed Release 5 MG TABLET PO (23:39)
[2024-10-29] VITALS (7 sets, daily range): BP systolic 123–146; BP diastolic 59–65; PULSE 62–74; RESP 16–20; TEMP 36.5–36.8; O2SAT 95–99
[2024-10-29] MEDS: polyethylene glycoL 3350 17 GM POWD.PACK PO (00:07)
[2024-10-29] MEDS: Lactated Ringers 1,000 ML 100 ML IVCONT ×3 (00:10→20:35)
--- NOTE | 2024-10-29 00:15 | PC.NURSE ---
pt reporting 10/10 chronic pain to BLE, tylenol given with little to no effect, Dr. Menchaca made aware, new orders placed per NOV.
[2024-10-29] MEDS: Ampicillin Sodium 1 GM in 0.9 % Sodium Chloride 100 ML IV (03:59)
[2024-10-29] MEDS: Omeprazole 20 MG CAPSULE.DR PO (05:38)
[2024-10-29] MEDS: Acetaminophen 325 MG TABLET 975 MG PO ×3 (05:42→20:31)
[2024-10-29 06:48] LABS: Hematocrit 29.1 % (42.0-52.0); Hemoglobin 9.9 g/dl (14.0-18.0); Mean Corpuscular Hemoglobin 32.7 pg (27.0-33.0); Mean Platelet Volume 11.8 fL (9.4-12.4); Platelet Count 226 X10*3/uL (160-400); Red Blood Count 3.03 X10*6/uL (4.60-5.80); Red Cell Distribution Width 11.9 % (11.0-16.0); White Blood Count 8.9 X10*3/uL (4.8-10.8)
[2024-10-29 07:06] LABS: Anion Gap 12 (12-20); Blood Urea Nitrogen 36 mg/dL (9-16); Calcium 8.8 mg/dL (8.4-10.2); Carbon Dioxide 25 mmol/L (22-29); Chloride 104 mmol/L (96-108); Creatinine Clr Calc Pharmacy 45.5; Estimated Glomerular Filt Rate 56; Glucose Random 89 mg/dL (60-115); Potassium 4.3 mmol/L (3.3-5.1); Sodium 137 mmol/L (135-145)
[2024-10-29 07:45] LABS: Glucose, Whole Blood 87 mg/dL (60-115)
[2024-10-29] MEDS: amLODIPine Besylate 5 MG TABLET PO (08:51)
[2024-10-29] MEDS: 0.9 % Sodium Chloride Flush 3 ML SYRINGE IVFLUSH ×2 (08:51→20:34)
--- NOTE | 2024-10-29 11:06 | P.PNIM_ITS ---
Subjective Subjective Date of Service: 10/29/24 Interval History: persistent hematuria, urine is near clear now Physical Exam 2 Vital Signs: Vital Signs: Last Vital Signs Temp 98.1 F 10/29/24 07:38 Pulse 67 10/29/24 07:38 Resp 20 10/29/24 07:38 BP 146/64 H 10/29/24 07:38 Pulse Ox 96 10/29/24 07:38 O2 Del Method Room Air 10/29/24 07:38 BMI result Body Mass Index 25.8 Const: Other: .General: AO X 3, no acute distress Resp: CTA bilateral CVS: S1,S2,RRR GI: +BS, NT, no distention Skin: No rash ; loza in with dark blood, ?old blood Neuro: motor grossly intact Psych: appropriate affect Objective Data Active Medications Acetaminophen (Acetaminophen 325 Mg Tablet) 975 mg PO Q6H PRN PRN Reason: Pain, Mild 1-3,fever,headache Last Admin: 10/29/24 05:42 Dose: 975 mg Documented By: RAJEEV Amlodipine Besylate (Amlodipine Besylate 5 Mg Tablet) 5 mg PO DAILY [facility]; Protocol Last Admin: 10/29/24 08:51 Dose: 5 mg Documented By: SARINA Atorvastatin Calcium (Atorvastatin Calcium 40 Mg Tablet) 40 mg PO MOTH@1800 [facility] Last Admin: 10/27/24 17:12 Dose: 40 mg Documented By: KARAN Calcium Carbonate (Calcium Carbonate 750 Mg Tab.Chew) 750 mg PO Q4H PRN PRN Reason: Heartburn Dextrose (Dextrose 50 % 25 Gm/50 Ml Syringe) 25 gm IVPUSH Q15M PRN PRN Reason: HYPOGLYCEMIA STANDING PROTOCOL Ferrous Sulfate (Ferrous Sulfate 324 Mg Tablet.Dr) 324 mg PO Q2D [facility] Last Admin: 10/28/24 09:36 Dose: 324 mg Documented By: KARAN Finasteride (Finasteride 5 Mg Tablet) 5 mg PO BEDTIME [facility] Last Admin: 10/28/24 20:36 Dose: 5 mg Documented By: RAJEEV Furosemide (Furosemide 40 Mg Tablet) 40 mg PO DAILY@1400 [facility]; Protocol Last Admin: 10/28/24 14:33 Dose: 40 mg Documented By: KARAN Glucose (Glucose Gel 15 Gm Gel..Gram.) 15 gm PO Q15M PRN; Protocol PRN Reason: per Hypoglycemia Standing Ord. Ampicillin Sodium 1 gm/ Sodium (Chloride) 100 mls @ 200 mls/hr IV Q8H [facility] Last Infusion: 10/29/24 04:29 Dose: Infused Documented By: RAJEEV Lactated Ringer's (Lr) 1,000 mls @ 100 mls/hr IVCONT .Q10H [facility] Last Admin: 10/29/24 10:52 Dose: 100 mls/hr Documented By: SARINA Insulin Human Lispro (Insulin Lispro 100 Unit/Ml 3 Ml Vial) 0 unit SUBCUT QIDACHS [facility]; Protocol Last Admin: 10/29/24 07:42 Dose: Not Given Documented By: SARINA Non-Admin Reason: No Insulin Coverage Magnesium Hydroxide (Milk Of Magnesia 30 Ml Oral.Susp) 30 ml PO DAILY PRN PRN Reason: Constipation Melatonin (Melatonin 3 Mg Tablet) 6 mg PO BEDTIME PRN PRN Reason: Insomnia Multivitamins/Vitamin C (Multivitamin Tablet) 1 tab PO DAILY@1200 [facility] Last Admin: 10/28/24 12:20 Dose: 1 tab Documented By: KARAN Mupirocin (Mupirocin 2 % Oint 22 Gm Tube) 1 appl TOPICAL TID [facility]; Protocol Last Admin: 10/28/24 22:39 Dose: 1 appl Documented By: RAJEEV Omeprazole (Omeprazole 20 Mg Capsule.Dr) 20 mg PO DAILY@0630 [facility] Last Admin: 10/29/24 05:38 Dose: 20 mg Documented By: RAJEEV Ondansetron HCl (Ondansetron Hcl 4 Mg/2 Ml Vial) 4 mg IVPUSH Q8H PRN PRN Reason: Nausea and Vomiting Polyethylene Glycol (Polyethylene Glycol 3350 17 Gm Powd.Pack) 17 gm PO DAILY PRN PRN Reason: Constipation Last Admin: 10/29/24 00:07 Dose: 17 gm Documented By: RAJEEV Sodium Chloride (0.9 % Sodium Chloride Flush 3 Ml Syringe) 3 ml IVFLUSH QSHIFT [facility] Last Admin: 10/29/24 08:51 Dose: 3 ml Documented By: SARINA Tamsulosin HCl (Tamsulosin Hcl 0.4 Mg Capsule) 0.4 mg PO BEDTIME [facility] Last Admin: 10/28/24 20:35 Dose: 0.4 mg Documented By: RAJEEV Labs 10/29/24 05:44 10/29/24 05:44 Labs: Laboratory Results - last 24 hr 10/28/24 10/28/24 10/28/24 11:19 16:10 19:26 MCV MCH MCHC RDW Plt Count MPV Absolute Nucleated RBC Nucleated RBC % (auto) Anion Gap Estim Creat Clear Calc Estimated GFR POC Glucose 146 H 211 H 79 Random Glucose Calcium 10/29/24 10/29/24 05:44 07:41 MCV 96.0 MCH 32.7 MCHC 34.0 RDW 11.9 Plt Count 226 MPV 11.8 Absolute Nucleated RBC 0.000 Nucleated RBC % (auto) 0.0 Anion Gap 12 Estim Creat Clear Calc 45.5 Estimated GFR 56 POC Glucose 87 Random Glucose 89 Calcium 8.8 Assessment and Plan (1) Gross hematuria: Status: Acute Plan 83-year-old male with a past medical history significant for bladder outlet obstruction status post GreenLight prostate treatment on 10/13/2024 with suprapubic catheter placement, chronic bilateral hydronephrosis, hx osteomyelitis, PAD, anemia, GERD, CKD, HLD, HTN, type 2 diabetes, who presented to the ED due to hematuria since last night. Urology was contacted and they recommended medical admission due to ESTEPHANIA and possible UTI. Gross gross hematuria, but little effect on H/H, holding ASA, and Plavix, urology recommends conservative manaement for now, blood in loza is darkening, continue montiro, no signs of clot at this time. -continue Abx. Monitor h/h Uti--culture Enteroccocus, change ceftriaxone to ampicillin and Augmentin today ESTEPHANIA on CKD, likely postrenal, improving - hold metformin, Lasix, lisinopril -continue IVF Acute blood loss anemia d/t hematuria, H/H stable, no indication for transfusion at this time Bilateral hydronephrosis - chronic - urology consult as above, keep loza in Type 2 diabetes -hold metoformin, sliding scale, diabetic diet HTN - continue amlodipine - hold lisinopril and furosemide due to ESTEPHANIA HLD - continue atorvastatin (Sunday and ) Full code VTE prophylaxis: Pneumoboots, anticoagulant contraindicated due to gross hematuria need for inpt: gross hematuria pt eval Quality Stroke Does the patient have a stroke diagnosis?: No VTE Prior VTE?: No VTE Risk Level:: Medical - moderate - high VTE Device Contraindication: N/A - Device Ordered VTE Drug Contraindication: Treatment Not Indicated
[2024-10-29 11:33] LABS: Glucose, Whole Blood 143 mg/dL (60-115)
[2024-10-29] MEDS: Amoxicillin/Potassium Clav 500 MG TABLET PO ×2 (11:40→23:24)
[2024-10-29] MEDS: Multivitamin TABLET 1 TAB PO (11:40)
[2024-10-29] MEDS: Furosemide 40 MG TABLET PO (14:15)
--- NOTE | 2024-10-29 16:00 | MHC.CM.PN ---
EMR REVIEWED AND PER MD ROUNDS, PT IS NOT MEDICALLY CLEARED FOR DC, MAYBE TOMORROW, HEMATURIA IS IMPROVED. [facility] UPDATED. CM WILL CONTINUE TO FOLLOW FOR ANY CHANGE TO DC PLAN
[2024-10-29 16:07] LABS: Glucose, Whole Blood 126 mg/dL (60-115)
--- NOTE | 2024-10-29 16:15 | HO.WOUND ---
Wound Consult: Initial 83yr old?male admitted to [facility] [place] on 10/25/24 - See progress notes and H&P for detailed history.? Wound consult placed for Right Buttock wound.? Patient agreeable to assessment and photo documentation.? Intergluteal and Coccyx Etiology: ?Stage 2 Pressure injury over coccyx ?Present on Admission Wound Bed: clean red pink moist wound bed Drainage / Odor: none noted Edges: linear and attached ? Rosa wound: MASD - Moisture associated skin damage - red pink blanchable tissue with moist macerated edges and mirrored edges ? No Induration, Fluctuance or Warmth noted Pain: tenderness reported Goals of Treatment: ? Triad and off loading pressure - do not sure foam as the wound bed is deep within the gluteal fold Recommendations: 1. Turn and Reposition every 2 hours and as needed for patient comfort.? Use pillows or wedges to support off loading positions. 2. Off Load all bony prominences with use of pillows and heel boots if needed.? Apply Preventative foams where needed. ? 3. Monitor for incontinence and moisture control, use barrier creams when needed for prevention and treatment. 4. Provide adequate and supplemental nutrition.? 5. Order low air loss mattress. 6. When applicable maintain blood glucose levels per Providers order. 7. Intergluteal and Coccyx -Off Load Pressure with Q2 hr turns and use of pillows - Cleanse with PH balance spray or wipes, pat dry. ?Apply thin layer of Triad to wound bed - only pat and dab no scrub and rub when soiling occurs. Reapply thin layer PRN after each episode of incontinence. Re-consult wound care Nurse for wound deterioration or wound changes.
[2024-10-29] MEDS: Mupirocin 2 % Oint 22 GM TUBE 1 APPL TOPICAL ×2 (16:37→20:36)
[2024-10-29 19:44] LABS: Glucose, Whole Blood 132 mg/dL (60-115)
[2024-10-29] MEDS: Finasteride 5 MG TABLET PO (20:33)
[2024-10-29] MEDS: Tamsulosin HCL 0.4 MG CAPSULE PO (20:33)
[2024-10-30 03:31] VITALS: BP 131/63; PULSE 54; RESP 18; TEMP 36.6; O2SAT 96
[2024-10-30] MEDS: Omeprazole 20 MG CAPSULE.DR PO (05:30)
[2024-10-30] MEDS: Lactated Ringers 1,000 ML 100 ML IVCONT (06:41)
[2024-10-30 06:49] LABS: Anion Gap 12 (12-20); Blood Urea Nitrogen 36 mg/dL (9-16); Calcium 8.7 mg/dL (8.4-10.2); Carbon Dioxide 24 mmol/L (22-29); Chloride 104 mmol/L (96-108); Creatinine Clr Calc Pharmacy 45.9; Estimated Glomerular Filt Rate 57; Glucose Random 99 mg/dL (60-115); Sodium 136 mmol/L (135-145)
[2024-10-30 07:18] LABS: Hematocrit 28.7 % (42.0-52.0); Hemoglobin 9.9 g/dl (14.0-18.0); Mean Corpuscular HGB Conc 34.5 g/dl (31.0-36.0); Mean Corpuscular Hemoglobin 33.1 pg (27.0-33.0); Mean Platelet Volume 11.6 fL (9.4-12.4); Platelet Count 239 X10*3/uL (160-400); Red Blood Count 2.99 X10*6/uL (4.60-5.80); White Blood Count 8.1 X10*3/uL (4.8-10.8)
[2024-10-30 07:35] VITALS: BP 130/60; PULSE 60; RESP 18; TEMP 36.4; O2SAT 99
[2024-10-30 07:42] LABS: Glucose, Whole Blood 93 mg/dL (60-115)
--- NOTE | 2024-10-30 09:12 | HO.PM.IMPN ---
Subjective Subjective Date of Service: 10/30/24 Interval History: Urine is clear, c/o neuropathic pain in feet Physical Exam Vital Signs: Vital Signs: Last Vital Signs Temp 97.5 F 10/30/24 07:35 Pulse 60 10/30/24 07:35 Resp 18 10/30/24 07:35 BP 130/60 10/30/24 07:35 Pulse Ox 99 10/30/24 07:35 O2 Del Method Room Air 10/30/24 07:35 BMI result Body Mass Index 25.8 Const: Other: .General: AO X 3, no acute distress Resp: CTA bilateral CVS: S1,S2,RRR GI: +BS, NT, no distention Skin: No rash ; loza in with dark blood, urine clear Neuro: motor grossly intact Psych: appropriate affect Objective Data Active Medications Acetaminophen (Acetaminophen 325 Mg Tablet) 975 mg PO Q6H PRN PRN Reason: Pain, Mild 1-3,fever,headache Last Admin: 10/29/24 20:31 Dose: 975 mg Documented By: RAJEEV Amlodipine Besylate (Amlodipine Besylate 5 Mg Tablet) 5 mg PO DAILY [facility]; Protocol Last Admin: 10/29/24 08:51 Dose: 5 mg Documented By: SARINA Amoxicillin/Clavulanate Potassium (Amoxicillin/Potassium Clav 500 Mg Tablet) 500 mg PO Q12H [facility] Last Admin: 10/29/24 23:24 Dose: 500 mg Documented By: RAJEEV Atorvastatin Calcium (Atorvastatin Calcium 40 Mg Tablet) 40 mg PO MOTH@1800 [facility] Last Admin: 10/27/24 17:12 Dose: 40 mg Documented By: KARAN Calcium Carbonate (Calcium Carbonate 750 Mg Tab.Chew) 750 mg PO Q4H PRN PRN Reason: Heartburn Dextrose (Dextrose 50 % 25 Gm/50 Ml Syringe) 25 gm IVPUSH Q15M PRN PRN Reason: HYPOGLYCEMIA STANDING PROTOCOL Ferrous Sulfate (Ferrous Sulfate 324 Mg Tablet.) 324 mg PO Q2D [facility] Last Admin: 10/28/24 09:36 Dose: 324 mg Documented By: KARAN Finasteride (Finasteride 5 Mg Tablet) 5 mg PO BEDTIME [facility] Last Admin: 10/29/24 20:33 Dose: 5 mg Documented By: RAJEEV Furosemide (Furosemide 40 Mg Tablet) 40 mg PO DAILY@1400 [facility]; Protocol Last Admin: 10/29/24 14:15 Dose: 40 mg Documented By: SARINA Gabapentin (Gabapentin 100 Mg Capsule) 100 mg PO BID [facility] Glucose (Glucose Gel 15 Gm Gel..Gram.) 15 gm PO Q15M PRN; Protocol PRN Reason: per Hypoglycemia Standing Ord. Insulin Human Lispro (Insulin Lispro 100 Unit/Ml 3 Ml Vial) 0 unit SUBCUT QIDACHS [facility]; Protocol Last Admin: 10/30/24 08:13 Dose: Not Given Documented By: RAISSA Non-Admin Reason: poc oor Magnesium Hydroxide (Milk Of Magnesia 30 Ml Oral.Susp) 30 ml PO DAILY PRN PRN Reason: Constipation Melatonin (Melatonin 3 Mg Tablet) 6 mg PO BEDTIME PRN PRN Reason: Insomnia Multivitamins/Vitamin C (Multivitamin Tablet) 1 tab PO DAILY@1200 [facility] Last Admin: 10/29/24 11:40 Dose: 1 tab Documented By: SARINA Mupirocin (Mupirocin 2 % Oint 22 Gm Tube) 1 appl TOPICAL TID [facility]; Protocol Last Admin: 10/29/24 20:36 Dose: 1 appl Documented By: RAJEEV Omeprazole (Omeprazole 20 Mg Capsule.) 20 mg PO DAILY@0630 [facility] Last Admin: 10/30/24 05:30 Dose: 20 mg Documented By: RAJEEV Ondansetron HCl (Ondansetron Hcl 4 Mg/2 Ml Vial) 4 mg IVPUSH Q8H PRN PRN Reason: Nausea and Vomiting Polyethylene Glycol (Polyethylene Glycol 3350 17 Gm Powd.Pack) 17 gm PO DAILY PRN PRN Reason: Constipation Last Admin: 10/29/24 00:07 Dose: 17 gm Documented By: RAJEEV Sodium Chloride (0.9 % Sodium Chloride Flush 3 Ml Syringe) 3 ml IVFLUSH QSHIFT [facility] Last Admin: 10/30/24 07:17 Dose: Not Given Documented By: RAISSA Non-Admin Reason: Previously Administered Tamsulosin HCl (Tamsulosin Hcl 0.4 Mg Capsule) 0.4 mg PO BEDTIME [facility] Last Admin: 10/29/24 20:33 Dose: 0.4 mg Documented By: RAJEEV Labs 10/30/24 06:08 10/30/24 06:08 Labs: Laboratory Results - last 24 hr 10/29/24 10/29/24 10/29/24 11:30 16:00 19:31 MCV MCH MCHC RDW Plt Count MPV Absolute Nucleated RBC Nucleated RBC % (auto) Anion Gap Estim Creat Clear Calc Estimated GFR POC Glucose 143 H 126 H 132 H Random Glucose Calcium 10/30/24 10/30/24 06:08 07:38 MCV 96.0 MCH 33.1 H MCHC 34.5 RDW 12.0 Plt Count 239 MPV 11.6 Absolute Nucleated RBC 0.000 Nucleated RBC % (auto) 0.0 Anion Gap 12 Estim Creat Clear Calc 45.9 Estimated GFR 57 POC Glucose 93 Random Glucose 99 Calcium 8.7 Assessment and Plan (1) Gross hematuria: Status: Acute Plan 83-year-old male with a past medical history significant for bladder outlet obstruction status post [facility] prostate treatment on 10/13/2024 with suprapubic catheter placement, chronic bilateral hydronephrosis, hx osteomyelitis, PAD, anemia, GERD, CKD, HLD, HTN, type 2 diabetes, who presented to the ED due to hematuria since last night. Urology was contacted and they recommended medical admission due to ESTPEHANIA and possible UTI. Gross gross hematuria, but little effect on H/H, holding ASA, and Plavix, urology recommends conservative manaement for now, blood in loza is darkening, continue montiro, no signs of clot at this time. -continue Abx. Monitor h/h Uti--culture Enteroccocus, changed ceftriaxone to ampicillin and Augmentin now ESTEPHANIA on CKD, likely postrenal, resolved. - hold metformin, Lasix, lisinopril -stop ivf Acute blood loss anemia d/t hematuria, H/H stable, no indication for transfusion at this time Bilateral hydronephrosis - chronic - urology consult as above, keep loza in, outpatient voiding trial Type 2 diabetes -hold metoformin, sliding scale, diabetic diet HTN - continue amlodipine - hold lisinopril and furosemide due to ESTEPHANIA HLD - continue atorvastatin (Sunday and ) Full code VTE prophylaxis: Pneumoboots, anticoagulant contraindicated due to gross hematuria need for inpt: gross hematuria pt recommends home with services Quality Stroke Does the patient have a stroke diagnosis?: No VTE Prior VTE?: No VTE Risk Level:: Medical - moderate - high VTE Device Contraindication: N/A - Device Ordered VTE Drug Contraindication: Treatment Not Indicated
--- NOTE | 2024-10-30 09:18 | PM.DS ---
DS: Providers Provider Date of Service: 10/30/24 Date of admission: 10/25/24 20:58 Date of discharge: 10/30/24 Primary care physician: Omi Farrar MD Consults: 10/25/24 21:04 Consult to Urology Routine Consulting [place] [facility] [place] Reason for consultation: gross hematuria Has provider been notified: No 10/29/24 00:36 Consult to Wound Care Routine Reason for consultation: Blanchable redness to R buttocks 10/30/24 01:14 Consult to Wound Care Routine Reason for consultation: pressure injury/maceration to buttocks DS: Diagnosis Discharge Diagnosis (1) Gross hematuria: Status: Acute DS: Summary Hospital Course Hospital Course: admission hpi Chief Complaint: gross hematuria Patient is an 83-year-old male with a past medical history significant for bladder outlet obstruction status post GreenLight prostate treatment on 10/13/2024 with suprapubic catheter placement, chronic bilateral hydronephrosis, osteomyelitis, PAD, anemia, GERD, CKD, HLD, HTN, type 2 diabetes, who presented to the ED due to hematuria since last night. He reports dark red urine without any clots. Catheter is draining well. Denies any abdominal pain, nausea or vomiting. He does have chronic constipation but reports he was able to have a bowel movement today with good relief. He has not taken his Plavix since the 7th due to the procedure. It is questionable whether he is taking baby aspirin daily as he reports he only asks for this as needed but his med list by his son reports daily use. He also briefly mentions left lower extremity pain which has been persistent for at least the past 2 months. No trauma or injuries known. It is located on the anterior portion of his stringer. hospital course: 83-year-old male with a past medical history significant for bladder outlet obstruction status post GreenLight prostate treatment on 10/13/2024 with suprapubic catheter placement, chronic bilateral hydronephrosis, hx osteomyelitis, PAD, anemia, GERD, CKD, HLD, HTN, type 2 diabetes, who presented to the ED due to hematuria. Further testing revealed ESTEPHANIA, UTI, hydronephrosis and loza catheter was inserted and urology consultation requested. Uti--culture Enteroccocus, initially was on Ceftriaxone and was changed to Ampicillin and now Augmentin for total of 7 days. WBC normal, no fever. ESTEPHANIA on CKD, likely postrenal, improved with loza cather and IVF. He presented with Creatine of 2.47 and now 1.22. Lisinopril and Lasix have been on hold, will continue holding lisinopril, and but may resume lasix. Acute blood loss anemia d/t hematuria, H/H stable, no indication for transfusion at this time Bilateral hydronephrosis - chronic - urology consult as above, keep loza in, outpatient voiding trial Type 2 diabetes -restarting metoformin, diabetic diet advised HTN--BP within normal despite holding lisinopril for estephania, resume lasix HLD - continue atorvastatin (Sunday and ) PT saw him and recommends home with services (PT and nursing) Time Attestation Discharge Coordination Time (in mins): 45 Quality: Safe Use of Opioids Does Pt have an Active Cancer Diagnosis on the Problem List?: No Quality: Stroke Does the patient have a stroke diagnosis?: No Physical Exam Vital Signs: Vital Signs: Last Vital Signs Temp 97.5 F 10/30/24 07:35 Pulse 60 10/30/24 07:35 Resp 18 10/30/24 07:35 BP 130/60 10/30/24 07:35 Pulse Ox 99 10/30/24 07:35 O2 Del Method Room Air 10/30/24 07:35 BMI result Body Mass Index 25.8 Const: Other: .General: AO X 3, no acute distress Resp: CTA bilateral CVS: S1,S2,RRR GI: +BS, NT, no distention Skin: No rash ; loza in with dark blood, urine clear Neuro: motor grossly intact Psych: appropriate affect DS: Data Data Completed and Pending Completed studies during hospitalization [Text1]: Procedures Dilation of Left Common Iliac Artery using Drug-Coated Balloon, Percutaneous Approach (10/10/22) Extirpation of Matter from Left Common Iliac Artery, Percutaneous Approach (10/10/22) Insertion of Infusion Device into Superior Vena Cava, Percutaneous Approach (10/30/22) Ultrasonography of Superior Vena Cava, Guidance (10/30/22) Labs on day of discharge: Laboratory Results - last 24 hr 10/29/24 10/29/24 10/29/24 11:30 16:00 19:31 WBC RBC Hgb Hct MCV MCH MCHC RDW Plt Count MPV Absolute Nucleated RBC Nucleated RBC % (auto) Sodium Potassium Chloride Carbon Dioxide Anion Gap BUN Creatinine Estim Creat Clear Calc Estimated GFR POC Glucose 143 H 126 H 132 H Random Glucose Calcium 10/30/24 10/30/24 06:08 07:38 WBC 8.1 RBC 2.99 L Hgb 9.9 L Hct 28.7 L MCV 96.0 MCH 33.1 H MCHC 34.5 RDW 12.0 Plt Count 239 MPV 11.6 Absolute Nucleated RBC 0.000 Nucleated RBC % (auto) 0.0 Sodium 136 Potassium 4.0 Chloride 104 Carbon Dioxide 24 Anion Gap 12 BUN 36 H Creatinine 1.22 Estim Creat Clear Calc 45.9 Estimated GFR 57 POC Glucose 93 Random Glucose 99 Calcium 8.7 Preliminary micro results at discharge 10/25/24 18:36 Blood Culture - Preliminary Blood - Venous No growth after 48 hours. 10/25/24 18:20 Blood Culture - Preliminary Blood - Venous No growth after 48 hours. Discharge Plan Discharge Anticipated Discharge Date/Time: 10/30/24 11:46 Patient Disposition: Home Health Service Discharge Diagnosis: Gross hematuria, anemia, ESTEPHANIA, enterococcus uti Referrals: [facility] [Outside] - 1 Week Omi Farrar MD [Primary Care Provider] - 1 Week Discharge Medications: New lisinopril 10 mg tablet 10 mg PO DAILY Qty: 90 0RF amoxicillin-pot clavulanate 500-125 mg Tablet 1 tab PO Q12H Qty: 6 0RF gabapentin 100 mg Capsule 100 mg PO BID Qty: 60 0RF Continued atorvastatin 40 mg tablet 40 mg PO MOTH@1800 tamsulosin 0.4 mg Capsule 0.4 mg PO BEDTIME Qty: 30 0RF pantoprazole 40 mg tablet,delayed release (DR/EC) 40 mg PO DAILY@0630 amlodipine 5 mg Tablet 5 mg PO DAILY furosemide 40 mg tablet 40 mg PO DAILY@1400 acetaminophen 500 mg Tablet 500 mg PO BID ferrous sulfate [iron] 325 mg (65 mg iron) Tablet 325 mg PO Q2D aspirin 81 mg Tablet,Chewable 81 mg PO DAILY mupirocin 2 % ointment 1 appl topical TID Rx Instructions: apply to groin area Restasis MultiDose 0.05 % Drops 1 drp OPHTHALMIC (EYE) Q12H clopidogrel 75 mg tablet 75 mg PO BEDTIME finasteride 5 mg tablet 5 mg PO BEDTIME multivitamin Tablet 1 tab PO DAILY@1200 metformin 500 mg tablet 500 mg PO BID Discontinued lisinopril 20 mg tablet 20 mg PO DAILY Discharge Orders: Discharge Order (Routine); Ordered 10/30/24 Ordered By: Macario Howell Diet: Diabetic diet Activity on Discharge: As tolerated Stand Alone Forms: Patient Portal Discharge page Print Language: Turkish Care Plan Goals: Recovery from renal failure, gross hematuria, UTI, Health Concerns: Gross hematuria, anemia, renal failure, UTI Plan of Treatment: Take Augmentin as recommended for UTI continue taking other medication as before, except that Lisinopril dose has been reduced to half from 20 to 10 mg daily take gabapentin for neuropathy pain in the feet Assessment: see above
--- NOTE | 2024-10-30 09:29 | P.F2F_ITS ---
Service Date Service Date: 10/30/24 Encounter Date of encounter: 10/30/24 Reasons for Services Signs and symptoms assessed: hematuria, anemia, renal failure and deconditioning from hospitalization Reason for group home: medication management and teach disease management Reason for physical therapy: home safety and mobility, therapeutic exercises and energy conservation Homebound: Leaving the home is medically contraindicated at this time without the asist of a device and/or another person due th the listed conditions above and below. Reason homebound: weakness related to hospital stay Homebound supporting statement: homebound due to weakness from hospitalization, renal failure, hematuria, now with loza catheter and therefore needs the assistance of another person Certification: Based on the above findings, I certify that this patient is confined to the home and needs intermittent group home care, physical therapy and/or speech therapy, or continues to need occupational therapy. The patient is under my care, and I have initiated the establishment of the plan of care. The patient will be followed by a physician who will periodically review the plan of care. Time Spent With Patient Time: Total time managing care of this patient today ____ minutes.
[2024-10-30] MEDS: Mupirocin 2 % Oint 22 GM TUBE 1 APPL TOPICAL (09:36)
[2024-10-30] MEDS: Gabapentin 100 MG CAPSULE PO (09:37)
[2024-10-30] MEDS: Ferrous Sulfate 324 MG TABLET.DR PO (09:37)
[2024-10-30] MEDS: amLODIPine Besylate 5 MG TABLET PO (09:37)
[2024-10-30] MEDS: Acetaminophen 325 MG TABLET 975 MG PO (09:40)
[2024-10-30] MEDS: metFORMIN HCl 500 MG TABLET PO (09:40)
--- NOTE | 2024-10-30 10:42 | MHC.CM.PN ---
Per MD rounds patient medically cleared for dc home w/ services via [facility]. Daughters will provide transport at 2pm. Patient, RN, and MD aware. IMM delivered.
[2024-10-30 11:04] VITALS: BP 147/72; PULSE 62; RESP 18; TEMP 36.3; O2SAT 95
[2024-10-30] MEDS: Aspirin Enteric Coated 81 MG TABLET.DR PO (11:09)
[2024-10-30] MEDS: Amoxicillin/Potassium Clav 500 MG TABLET PO (11:09)
[2024-10-30] MEDS: Multivitamin TABLET 1 TAB PO (11:09)
[2024-10-30] MEDS: Clopidogrel Bisulfate 75 MG TABLET PO (11:09)
[2024-10-30 11:19] LABS: Glucose, Whole Blood 151 mg/dL (60-115)
[2024-10-30] MEDS: Insulin Lispro 100 UNIT/ML 3 ML VIAL SUBCUT (12:35)
[2024-10-30] MEDS: lisinopriL 10 MG TABLET PO (12:35)
--- NOTE | 2024-11-11 14:20 | P.CDIM_ITS ---
PROVIDER RESPONSE TEXT: To clarify, the appropriate diagnosis supported by the clinical indicators: Yes, UTI is related to / associated with / due to suprapubic catheter QUERY TEXT: PHYSICIAN'S DOCUMENTATION REQUEST Date of Query: 10/28/2024 11:46 AM EST Patient Name: MORGAN PHILLIPS Admit Date: 10/26/2024 Dear Macario Howell MD, A review of the medical record indicates additional documentation may be needed. Please review below and update the documentation accordingly. Documentation includes the conditions of UTI and suprapubic catheter. Clinical Indicators: UC: Enterococcus IV Ampicillin Please clarify the relationship between these conditions: Yes, UTI is related to / associated with / due to suprapubic catheter No, UTI is not related to / associated with / due to suprapubic catheter Other (explain) Clinically unable to determine (explain) Thank you, Carina Middleton RN Use of terms such as suspected, likely, concern for, or probable (associated with a specific diagnosi s that is being evaluated, monitored, or treated as if it exists) are acceptable and can be coded in the inpatient se tting, when documented at the time of discharge. Please use your independent medical judgment in providing your response. THIS QUERY IS PART OF THE PERMANENT MEDICAL RECORD
== END 2024-10-30 15:13 | disposition home health service (06) | DRG 699 ==
LOC: HO.ED 20:52 → HO.EDOVER 21:21 → HO.S3 23:46
PROVIDERS: Nurse Practitioner Family; Admitting Provider Physician Assistant; Emergency Provider Emergency Medicine; PCP Internal Medicine; Visit Provider Internal Medicine
DX: T83.510A Infection and inflammatory reaction due to cystostomy catheter, initial encounter (principal); D62 Acute posthemorrhagic anemia; N13.6 Pyonephrosis; N17.9 Acute kidney failure, unspecified; R31.0 Gross hematuria; E78.5 Hyperlipidemia, unspecified; B95.2 Enterococcus as the cause of diseases classified elsewhere; I12.9 Hypertensive chronic kidney disease with stage 1 through stage 4 chronic kidney disease, or unspecified chronic kidney disease; E11.40 Type 2 diabetes mellitus with diabetic neuropathy, unspecified; N18.30 Chronic kidney disease, stage 3 unspecified; D63.1 Anemia in chronic kidney disease; E11.22 Type 2 diabetes mellitus with diabetic chronic kidney disease; Z87.891 Personal history of nicotine dependence; Z79.02 Long term (current) use of antithrombotics/antiplatelets; Z79.82 Long term (current) use of aspirin; Z79.84 Long term (current) use of oral hypoglycemic drugs; Z79.899 Other long term (current) drug therapy
CPT/HCPCS: 36415; 74176; 80048; 80053; 81001; 82550; 82947; 83605; 85025; 85027; 87040; 87086; 87088; 87186; 97162; 99285; J0290; J0696; J7120

== ENCOUNTER → 2024-10-25 17:09 | Outpatient (BNV) | payer MEDICARE, SELFPAY | PROVIDERS: Emergency Provider Emergency Medicine; PCP Internal Medicine; Visit Provider Radiology Diagnostic Radiology | DX: N32.89 Other specified disorders of bladder (principal) | CPT/HCPCS: 74176 ==

== ENCOUNTER → 2024-10-25 20:58 | Outpatient (BNV) | payer MEDICARE, SELFPAY | PROVIDERS: Admitting Provider Physician Assistant; Emergency Provider Emergency Medicine; PCP Internal Medicine; Visit Provider Physician Assistant | DX: R31.0 Gross hematuria (principal) | CPT/HCPCS: 99232; 99233; G0180 ==

== ENCOUNTER → 2024-10-25 20:58 | Outpatient (BNV) | payer MEDICARE, SELFPAY | PROVIDERS: Admitting Provider Physician Assistant; Emergency Provider Emergency Medicine; PCP Internal Medicine; Visit Provider Urology | DX: R33.9 Retention of urine, unspecified (principal); N17.9 Acute kidney failure, unspecified; N18.9 Chronic kidney disease, unspecified; R31.0 Gross hematuria; N39.0 Urinary tract infection, site not specified | CPT/HCPCS: 99024 ==

== ENCOUNTER 2024-11-21 14:22 | Outpatient (AMB) | payer MEDICARE, SELFPAY ==
--- NOTE | 2024-11-21 14:32 | MHC.OFFVIS ---
Intake Visit Reasons: Greenlight/1st SPT change Intake Note: Pt presents to office today for greenlight/first SPT change Allergies clindamycin [From CLEOCIN] Allergy (Severe, Verified 11/21/24 14:32) BLACK STOOL Sulfa (Sulfonamide Antibiotics) Allergy (Intermediate, Verified 11/21/24 14:32) Swelling atorvastatin Allergy (Verified 11/21/24 14:32) Unknown HPI Comments Details: Lefty is a pleasant male. Accompanied by his 2 daughters. He is a patient of Dr. Farrar. He is seen for the following urologic conditions - obstructive uropathy with elevated creatinine Here for suprapubic tube placement Interventions - 10/25 GreenLight laser prostatectomy with suprapubic tube placement Obstructive uropathy with elevated creatinine Initially seen in emergency room Placed on combination therapy Failed multiple voiding trials Imaging - The kidneys are normal in size, shape, and attenuation. There is marked bilateral hydronephrosis and dilatation of the ureters down to the level of the bladder. No obstructing calculi are seen. No intrarenal calculi are seen. No renal masses are detected. The bladder is markedly distended. The prostate is moderately to markedly enlarged [facility] Medical History Nephropathy Anemia GERD (gastroesophageal reflux disease) CKD (chronic kidney disease) stage 3, GFR 30-59 ml/min Psoriatic arthritis Osteopenia Onychomycosis Mild nonproliferative diabetic retinopathy of both eyes Macrocytosis HLD (hyperlipidemia) History of bleeding peptic ulcer Closed traumatic brain injury BPH (benign prostatic hyperplasia) 1st degree AV block PAD (peripheral artery disease) Skin ulcer of left great toe Hypertension Type 2 diabetes mellitus Diabetes PSA (psoriatic arthritis) Surgical History Hx of tonsillectomy Hx of cholecystectomy History of esophagogastroduodenoscopy (EGD) H/O colonoscopy Hx of inguinal hernia repair History of atherectomy Social History Household Members: Children and None Household Members Other:: 1 Housing: House Are you a primary managed care provider to a significant other at home: No Do you presently have visiting nurse or other home services: No Alcohol intake: former Comment: 1 assist with walker Patient Tobacco Use Status: Former Tobacco user Tobacco use type: Cigarette Cigarette Packs Per Day: 0.5 Cigarettes Per Day: 10.0 Years Smoked: 15 e-Cigarette/Vaping Use: Never Used Second Hand Smoke Exposure: No Advance Directives Date on File: 10/10/22 service: No Current occupational status: retired Review of Systems Const Denies chills and Denies fever(s) Card Reports no additional complaints and Denies syncope Resp Denies cough GI Denies abdominal pain and Denies heartburn Reports as per HPI and Denies change in libido Neuro Denies syncope Psych Denies change in libido Endo Denies change in libido Physical Exam Const General: cooperative, healthy appearing, comfortable and no acute distress Orientation/consciousness: patient oriented x3 HEENT Face and sinus: Yes normal facial exam Mouth: moist mucous membranes Neck Neck: Yes normal visual inspection, Yes full ROM and Yes trachea midline Chest Chest palpation & inspection: normal inspection of the chest Resp Effort & Inspection: normal respiratory effort, able to speak in complete sentences and no respiratory distress GI Inspection: Yes normal to inspection Back/Spine/Pelvis Cervical Spine: normal cervical lordosis Thoracic/Lumbar Spine: thoracic and lumbar spine normal to inspection Skin General skin exam: no rashes or lesions noted Neuro General: patient oriented x3, gait normal, tone normal and moves all extremities Extrem General: Yes normal to inspection and Yes capillary refill normal Office Procedures Bladder/Catheter Procedure Details: Indwelling SPT change Up size to 18 Mongolian 01527-Aroprg of bladder tube Procedure code (CPT) selection complete Assessment & Plan Assessment & Plan (1) Bladder outlet obstruction: Code(s): N32.0 - Bladder-neck obstruction Category: Medical (2) Bilateral hydronephrosis: Code(s): N13.30 - Unspecified hydronephrosis Category: Medical Plan 4 week follow-up SPT tube Patient Instructions: This note is constructed using voice recognition software. While every effort has been made to ensure accuracy geospatial extractor analysis errors may have been included. Imaging studies, laboratory and physical exam results were discussed and reviewed in detail. No major barriers to patient understanding were identified. An opportunity to ask questions regarding the treatment plan was provided. All questions were answered. The patient expressed understanding and agreement with the above treatment plan. The patient is aware they should contact our office by phone for worsening of their current condition or the appearance of new urologic symptoms. Compliance is encouraged with any medications and followup testing that is ordered. It is a privilege to participate in the urologic care of your patient. If you have any questions or concerns regarding treatment for the above conditions, or other urologic issues, please do not hesitate to contact me. The office telephone contact is [phone]. Sincerely, Dr Pedro Medina MD, [facility] - Urology Compassionate Specialist Care for the Genitourinary System Coding Level of Care Code Est Pt Level 3 (30269) Diagnoses Bladder outlet obstruction N32.0 Bilateral hydronephrosis N13.30 CPT Codes Bladder/Catheter Procedure - CPT: 43115-Abjzoo of bladder tube ([id number])
--- OUTSIDE RECORDS SUMMARY | 2024-11-21 14:46 | XMS_ITS | Continuity of Care Document ---
Author Organization [facility] Ezra Vinod lt Address [address] [place] [address]- Care Team Providers Care [place]ullion Chief Name Role Phone Omi Farrar MD Primary Care Physician [phone] Encounter [facility] Date(s): 10/09/24 - 11/08/24 [facility] Adult [address] [place] [address]- Encounter Type: Triage Allergies, Adverse Reactions, Alerts [...] 2:12:00 PM EDT, Route to Pharmacy Electronically, [facility] (Now [facility]), Partial fill upon patient request if the prescription is for a schedule II opioid drug., 170, cm, 06/17/24 13:50:00 EDT, Height Start Date: 06/17/24 Status: Ordered Quantity: 90.0 Unit: tablet Repeat number: 4 atorvastatin 40 mg oral tablet See Instructions, TAKE 1 TABLET EVERY SUNDAY AND SUNDAY, # 26 tablet, 3 Refills, Maintenance, 02/21/24 11:35:00 AM EDT, [facility] Mail Delivery, 170, cm, 12/11/23 13:57:00 EDT, Height Start Date: 02/21/24 Status: Ordered Quantity: 26.0 Unit: tablet Repeat number: 1 clopidogrel 75 mg oral tablet 1, tablet, By Mouth, Daily, # 90 tablet, Refills 3, Maintenance, 02/21/24 11:35:00 AM EDT, Route to Pharmacy Electronically, [facility] Mail [facility], 170, cm, 12/11/23 [...] 3 Refills, Maintenance, 02/21/24 11:35:00 AM EDT, [facility] Mail [facility], 170, cm, 12/11/23 13:57:00 [...] mg, 1, tablet, By Mouth, Daily, # 30 tablet, Refills 0, Tot. Refills 0, Maintenance, 10/07/24 5:42:00 PM EST, Route to Pharmacy Electronically, [facility]/pharmacy #[id number], Partial fill upon patient request if the prescription is for a schedule II opioid drug., 170, cm, 08/19/24 15:35:00 EST, Height Start Date: 10/07/24 Status: Ordered Quantity: 30.0 Unit: tablet Repeat number: 1 furosemide 40 mg oral tablet 40 mg, 1, tablet, By Mouth, Daily, # 90 tablet, Refills 3, Tot. Refills 3, Maintenance, 10/11/24 11:19:00 AM EST, Route to Pharmacy Electronically, [facility] (Now [facility]), FUROSEMIDE 40mg is correct dose. Please dispence #30., 170, cm, 08/19/24 15:35:00 EST, Height Start Date: 10/11/24 Status: Ordered Quantity: 90.0 Unit: tablet Repeat number: 4 lisinopril 20 mg oral tablet 1, tablet, By Mouth, Daily, # 90 tablet, Refills 3, Tot. Refills 3, Maintenance, 08/19/24 3:08:00 PM EST, Route to Pharmacy Electronically, [facility] (Now [facility]), 170, cm, 08/19/24 14:57:00 EST, Height Start Date: 08/19/24 Status: Ordered Quantity: 90.0 Unit: tablet Repeat number: 4 metFORMIN 500 mg oral tablet 1 tablet, By Mouth, 2 times a day, # 180 tablet, 3 Refills, Maintenance, 11/16/23 2:01:00 PM EST, [facility] Mail Delivery, 170, cm, 05/28/23 [...] 11:35:00 AM EDT, Route to Pharmacy Electronically, [facility] Mail [facility], 170, cm, 12/11/23 [...] Personnel Name: Leni VINSON, Omi Olivares Position: [facility] Physician - Primary Care Member Role: PCP Address: [address] [place] [address]- Telecom: Care Team Related Persons Name: NEVAEH PHILLIPS Insurance Providers Guarantor name: MORGAN JACQUELINE Health Plan Information #: 1 Payer: MEDICARE PART B OUTPT Member Number: NA Policy Number: NA Group Number: NA Health Plan Information #: 2 Payer: MEDEX Member Number: NA Policy Number: NA Group Number: NA
--- OUTSIDE RECORDS SUMMARY | 2024-11-21 14:46 | XMS_ITS | Clinical Summary ---
Author Organization [facility] Facility Address [address] [place] [id number] Care Team Providers Care Infection Control Specialist Name Role Phone Omi Farrar MD Primary Care Provider [phone] Social History Tobacco Use Types Packs/Day Years [...] age to complete this topic Insurance MEDICARE [facility] MEDICARE [facility] Care Teams Infection Control Specialist Relationship Specialty Start Date End Date Omi Farrar MD [facility] [place] PCP - General Internal Medicine 10/18/22
--- OUTSIDE RECORDS SUMMARY | 2024-11-21 14:46 | XMS_ITS | Continuity of Care Document ---
Author Organization [facility] Ezra Vinod lt Address [address] [place] [address]- Care Team Providers Care Sewage Plant Supervisor Name Role Phone Omi Farrar MD Primary Care Physician [phone] [facility] Date[facility]s): 10/02/24 - 11/01/24 [facility] Adult [address] [place] [address]- Encounter Type: Triage Allergies, Adverse Reactions, Alerts [...] 2:12:00 PM EDT, Route to Pharmacy Electronically, [facility] (Now [facility]), Partial fill upon patient request if the prescription is for a schedule II opioid drug., 170, cm, 06/17/24 13:50:00 EDT, Height Start Date: 06/17/24 Status: Ordered Quantity: 90.0 Unit: tablet Repeat number: 4 atorvastatin 40 mg oral tablet See Instructions, TAKE 1 TABLET EVERY SUNDAY AND SUNDAY, # 26 tablet, 3 Refills, Maintenance, 02/21/24 11:35:00 AM EDT, [facility] Mail Delivery, 170, cm, 12/11/23 13:57:00 EDT, Height Start Date: 02/21/24 Status: Ordered Quantity: 26.0 Unit: tablet Repeat number: 1 clopidogrel 75 mg oral tablet 1, tablet, By Mouth, Daily, # 90 tablet, Refills 3, Maintenance, 02/21/24 11:35:00 AM EDT, Route to Pharmacy Electronically, [facility] Mail Delivery, 170, cm, 12/11/23 [...] 3 Refills, Maintenance, 02/21/24 11:35:00 AM EDT, [facility] Mail Delivery, 170, cm, 12/11/23 13:57:00 [...] 5:42:00 PM EST, Route to Pharmacy Electronically, [facility]/pharmacy #[id number], Partial fill upon patient request [...] 11:19:00 AM EST, Route to Pharmacy Electronically, [facility] (Now [facility]), FUROSEMIDE 40mg is correct dose. Please dispence #30., 170, cm, 08/19/24 15:35:00 EST, Height Start Date: 10/11/24 Status: Ordered Quantity: 90.0 Unit: tablet Repeat number: 4 lisinopril 20 mg oral tablet 1, tablet, By Mouth, Daily, # 90 tablet, Refills 3, Tot. Refills 3, Maintenance, 08/19/24 3:08:00 PM EST, Route to Pharmacy Electronically, [facility] (Now [facility]), 170, cm, 08/19/24 14:57:00 EST, Height Start Date: 08/19/24 Status: Ordered Quantity: 90.0 Unit: tablet Repeat number: 4 metFORMIN 500 mg oral tablet 1 tablet, By Mouth, 2 times a day, # 180 tablet, 3 Refills, Maintenance, 11/16/23 2:01:00 PM EST, [facility] Mail Delivery, 170, cm, 05/28/23 [...] 11:35:00 AM EDT, Route to Pharmacy Electronically, [facility], 170, cm, 12/11/23 [...] Care Team Personnel Name: Leni VINSON, Omi Olivraes Position: [facility] Physician - Primary Care Member Role: PCP Address: [address] [place] [address]- Telecom: Care Team Related Persons Name: NEVAEH PHILLIPS Insurance Providers Guarantor name: MORGAN JACQUELINE Health Plan Information #: 1 Payer: MEDICARE PART B OUTPT Member Number: NA Policy Number: NA Group Number: NA Health Plan Information #: 2 Payer: MEDEX Member Number: NA Policy Number: NA Group Number: NA
--- OUTSIDE RECORDS SUMMARY | 2024-11-21 14:46 | XMS_ITS | Continuity of Care Document ---
Author Organization [facility] Ezra Vinod lt Address [address] [place] [address]- Care Team Providers Care Cpa Tax Name Role Phone Leni VINSON, Omi Olivares Primary Care Physician Encounter [facility] Date(s): 10/03/24 - 11/02/24 [facility] Adult [address] [place] [address]- Encounter Type: Triage Allergies, Adverse Reactions, Alerts [...] 2:12:00 PM EDT, Route to Pharmacy Electronically, [facility] (Now [facility]), Partial fill upon patient request if the prescription is for a schedule II opioid drug., 170, cm, 06/17/24 13:50:00 EDT, Height Start Date: 06/17/24 Status: Ordered Quantity: 90.0 Unit: tablet Repeat number: 4 atorvastatin 40 mg oral tablet See Instructions, TAKE 1 TABLET EVERY SUNDAY AND SUNDAY, # 26 tablet, 3 Refills, Maintenance, 02/21/24 11:35:00 AM EDT, [facility] Mail Delivery, 170, cm, 12/11/23 13:57:00 EDT, Height Start Date: 02/21/24 Status: Ordered Quantity: 26.0 Unit: tablet Repeat number: 1 clopidogrel 75 mg oral tablet 1, tablet, By Mouth, Daily, # 90 tablet, Refills 3, Maintenance, 02/21/24 11:35:00 AM EDT, Route to Pharmacy Electronically, [facility], 170, cm, 12/11/23 [...] 3 Refills, Maintenance, 02/21/24 11:35:00 AM EDT, [facility], 170, cm, 12/11/23 13:57:00 [...] 5:42:00 PM EST, Route to Pharmacy Electronically, [facility]/pharmacy #[id number], Partial fill upon patient request [...] 11:19:00 AM EST, Route to Pharmacy Electronically, [facility] (Now [facility]), FUROSEMIDE 40mg is correct dose. Please dispence #30., 170, cm, 08/19/24 15:35:00 EST, Height Start Date: 10/11/24 Status: Ordered Quantity: 90.0 Unit: tablet Repeat number: 4 lisinopril 20 mg oral tablet 1, tablet, By Mouth, Daily, # 90 tablet, Refills 3, Tot. Refills 3, Maintenance, 08/19/24 3:08:00 PM EST, Route to Pharmacy Electronically, [facility] (Now [facility]), 170, cm, 08/19/24 14:57:00 EST, Height Start Date: 08/19/24 Status: Ordered Quantity: 90.0 Unit: tablet Repeat number: 4 metFORMIN 500 mg oral tablet 1 tablet, By Mouth, 2 times a day, # 180 tablet, 3 Refills, Maintenance, 11/16/23 2:01:00 PM EST, [facility] Mail Delivery, 170, cm, 05/28/23 [...] 11:35:00 AM EDT, Route to Pharmacy Electronically, [facility], 170, cm, 12/11/23 [...] - Primary Care Member Role: PCP Address: [address] [place] [phone]- Telecom: Care Team Related Persons Name: NEVAEH PHILLIPS Insurance Providers Guarantor name: MORGAN JACQUELINE Health Plan Information #: 1 Payer: MEDICARE PART B OUTPT Member Number: NA Policy Number: NA Group Number: NA Health Plan Information #: 2 Payer: [employer] Member Number: NA Policy Number: NA Group Number: NA
== END 2024-11-21 15:26 | disposition home or self-care (01) ==
PROVIDERS: PCP Internal Medicine; Visit Provider Urology
DX: N32.0 Bladder-neck obstruction (principal); N13.30 Unspecified hydronephrosis; Z43.5 Encounter for attention to cystostomy
CPT/HCPCS: 51705; 99024

== ENCOUNTER → 2024-11-21 14:22 | Outpatient (BNVA) | payer MEDICARE, SELFPAY | PROVIDERS: PCP Internal Medicine; Visit Provider Urology | DX: N32.0 Bladder-neck obstruction (principal); N13.30 Unspecified hydronephrosis; Z96.0 Presence of urogenital implants; Z43.5 Encounter for attention to cystostomy | CPT/HCPCS: 51705; 99212 ==

== ENCOUNTER → 2024-12-17 14:22 | Outpatient (BNVA) | payer MEDICARE, SELFPAY | PROVIDERS: PCP Internal Medicine; Visit Provider Urology | DX: N32.0 Bladder-neck obstruction (principal) | CPT/HCPCS: 51705 ==

== ENCOUNTER → 2025-01-14 14:19 | Outpatient (BNVA) | payer MEDICARE, SELFPAY | PROVIDERS: PCP Internal Medicine | DX: Z43.5 Encounter for attention to cystostomy (principal); N32.0 Bladder-neck obstruction; R33.8 Other retention of urine | CPT/HCPCS: 51705 ==

== ENCOUNTER → 2025-02-18 14:20 | Outpatient (BNVA) | payer MEDICARE, SELFPAY | PROVIDERS: PCP Internal Medicine; Visit Provider Urology | DX: N32.0 Bladder-neck obstruction (principal); R33.8 Other retention of urine | CPT/HCPCS: 51705 ==

== ENCOUNTER → 2025-03-18 14:27 | Outpatient (BNVA) | payer MEDICARE, SELFPAY | PROVIDERS: PCP Internal Medicine; Visit Provider Urology | DX: N32.0 Bladder-neck obstruction (principal) | CPT/HCPCS: 51705 ==

== ENCOUNTER → 2025-04-15 14:18 | Outpatient (BNVA) | payer MEDICARE, SELFPAY | PROVIDERS: PCP Internal Medicine; Visit Provider Urology | DX: Z46.6 Encounter for fitting and adjustment of urinary device (principal); R33.8 Other retention of urine | CPT/HCPCS: 51705 ==

== ENCOUNTER → 2025-05-13 14:24 | Outpatient (BNVA) | payer MEDICARE, SELFPAY | PROVIDERS: PCP Internal Medicine; Visit Provider Urology | DX: Z46.6 Encounter for fitting and adjustment of urinary device (principal); R33.8 Other retention of urine | CPT/HCPCS: 51705 ==

== ENCOUNTER → 2025-06-10 14:23 | Outpatient (BNVA) | payer MEDICARE, SELFPAY | PROVIDERS: PCP Internal Medicine; Visit Provider Urology | DX: Z46.6 Encounter for fitting and adjustment of urinary device (principal); R33.8 Other retention of urine; Z93.50 Unspecified cystostomy status | CPT/HCPCS: 51705 ==

== ENCOUNTER → 2025-07-08 14:18 | Outpatient (BNVA) | payer MEDICARE, SELFPAY | PROVIDERS: PCP Internal Medicine; Visit Provider Urology | DX: Z46.6 Encounter for fitting and adjustment of urinary device (principal); R33.8 Other retention of urine; Z93.50 Unspecified cystostomy status | CPT/HCPCS: 51705 ==

== ENCOUNTER → 2025-08-05 13:23 | Outpatient (BNVA) | payer MEDICARE, SELFPAY | PROVIDERS: PCP Internal Medicine; Visit Provider Urology | DX: N32.0 Bladder-neck obstruction (principal); R33.8 Other retention of urine | CPT/HCPCS: 51705 ==

== ENCOUNTER → 2025-09-02 13:47 | Outpatient (BNVA) | payer MEDICARE, SELFPAY | PROVIDERS: PCP Internal Medicine; Visit Provider Urology | DX: Z46.6 Encounter for fitting and adjustment of urinary device (principal); N32.0 Bladder-neck obstruction; R33.8 Other retention of urine; Z93.50 Unspecified cystostomy status | CPT/HCPCS: 51705 ==

== ENCOUNTER → 2025-09-30 13:58 | Outpatient (BNVA) | payer MEDICARE, SELFPAY | PROVIDERS: PCP Internal Medicine; Visit Provider Urology | DX: R33.8 Other retention of urine (principal); Z46.6 Encounter for fitting and adjustment of urinary device | CPT/HCPCS: 51705 ==